=== PATIENT | female | born 1950 | race Two or more races ===

== ENCOUNTER 2016-08-28 18:01 | Emergency (ER) | payer SELFPAY ==
[~2016-08-28] VITALS: Ht 165.1 cm; Wt 45.9 kg
[~2016-08-28 18:01] MED LIST: LEVO750T25 PO; LOSA50TA6 PO; ONDA8TAB9 PO
[2016-08-28 18:14] VITALS: Ht 165.1 cm; Wt 45.9 kg
== END 2016-08-28 18:41 | disposition left against medical advice (07) ==
LOC: E/R 18:01
DX: Z53.21 Procedure and treatment not carried out due to patient leaving prior to being seen by health care provider (principal)

== ENCOUNTER 2016-09-18 16:34 | Inpatient (IN) | payer BC, MEDICARE ==
[~2016-09-18] VITALS: Ht 157.5 cm; Wt 44.6 kg
--- NOTE | 2016-09-18 21:48 | ERA ---
ER Documentation Chief Complaint Date/Time DATE: 09/18/16 TIME: 21:48 Chief Complaint GENERALIZED ABD PAIN X 2 WEEKS STOMACH CA HPI The patient is a 66-year-old female, presenting to the ER because of acute on chronic intermittent abdominal pain for more than 3 weeks, 03/07, relief with vomiting and bowel movement. She had an abdominal and pelvic CAT scan on August 29, 2016 at [facility] that show ileus. 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 She had history of gastric cancer, treated with chemotherapy and gastric resection and [facility] on August 2015. She is follow-up with her oncologist concerning suspected recurrent gastric carcinoma. The abdominal pain is diffuse, associated with intermittent vomiting and constipation.. She does not smoke or drink Past medical history: History of gastric cancer, dumping syndrome, IBS Past surgical history: Right knee, appendectomy, hysterectomy ROS All systems reviewed and are negative except as per history of present illness. Medications Home Meds Reported Medications Cholecalciferol* (Vitamin D3*) Unknown Strength Tablet, UNIT PO DAILY, TAB 09/18/16 Cyanocobalamin* (Vitamin B-12*) 1,000 Mcg Tablet.sa, 1000 MCG PO DAILY, TAB 09/18/16 Multivitamins* (Theragran*) 1 Tab Tab, 1 TAB PO DAILY, TAB 09/18/16 Peppermint Oil (Ibgard) 90 Mg Capdr...er, 90 MG PO DAILY Y for PRN, CAP 09/18/16 Discontinued Reported Medications Cyanocobalamin* (Vitamin B12*) 500 Mcg Tab, 1000 MCG PO DAILY, TAB 09/18/16 Ondansetron Hcl* (Zofran*) 8 Mg Tablet, 8 MG PO BID Y for NAUSEA AND OR VOMITING , TAB 02/03/16 Losartan Potassium* (Losartan Potassium*) 50 Mg Tablet, 50 MG PO BID, TAB 02/03/16 Discontinued Scripts Levofloxacin* (Levaquin*) 750 Mg Tablet, 750 MG PO DAILY for 7 Days, TAB Prov:HEBER DE LA TORRE MD 02/03/16 Allergies Allergies: Coded Allergies: No Known Allergy (Unverified , 09/18/16) PMhx/Soc History of Surgery: Yes (Rt knee meniscus surgery, STOMACH CXR) Anesthesia Reaction: No Hx Neurological Disorder: No Hx Respiratory Disorders: No Hx Cardiac Disorders: Yes (HTN) Hx Psychiatric Problems: No Hx Miscellaneous Medical Probl: Yes (STOMACH CANCER WITH CHEMO) Hx Alcohol Use: No Hx Substance Use: No Hx Tobacco Use: No Physical Exam Vitals Vital Signs Date Time Temp Pulse Resp B/P Pulse Ox O2 Delivery O2 Flow Rate FiO2 09/19/16 02:00 72 13 121/65 100 Room Air 09/18/16 22:16 97.6 86 12 173/80 100 Room Air 09/18/16 16:44 97.9 85 16 137/60 99 Physical Exam Const: No acute distress. Head: Atraumatic. Eyes: Normal Conjunctiva. ENT: Normal External Ears, Nose and Mouth. Neck: Full range of motion. No meningismus. Resp: Clear to auscultation bilaterally. Cardio: Regular rate and rhythm, no murmurs. Abd: Soft, non distended, normal bowel sounds, diffuse abdominal tenderness, no rigidity, rebound, CVA tenderness Skin: No petechiae or rashes. Back: No midline or flank tenderness. Ext: No cyanosis, or edema. Neur: Awake and alert. No focal deficit Psych: Normal Mood and Affect. Result Diagram: 09/18/16221409/18/162214 Results 24 hrs Laboratory Tests Test 09/18/16 22:15 09/18/16 22:35 White Blood Count 5.310^3/ul Red Blood Count 3.9210^6/ul Hemoglobin 11.4g/dl Hematocrit 35.0% Mean Corpuscular Volume 89.3fl Mean Corpuscular Hemoglobin 29.1pg Mean Corpuscular Hemoglobin Concent 32.6g/dl Red Cell Distribution Width 14.3% Platelet Count 32282^3/UL Mean Platelet Volume 9.5fl Neutrophils % 60.4% Lymphocytes % 26.4% Monocytes % 11.4% Eosinophils % 0.6% Basophils % 0.6% Nucleated Red Blood Cells % 0.0/100WBC Neutrophils # 3.210^3/ul Lymphocytes # 1.410^3/ul Monocytes # 0.610^3/ul Eosinophils # 0.010^3/ul Basophils # 0.010^3/ul Nucleated Red Blood Cells # 0.010^3/ul Sodium Level 140mmol/L Potassium Level 4.6mmol/L Chloride Level 97mmol/L Carbon Dioxide Level 31mmol/L Anion Gap 17 Blood Urea Nitrogen 13mg/dl Creatinine 0.61mg/dl Glucose Level 95mg/dl Calcium Level 8.8mg/dl Total Bilirubin 0.4mg/dl Direct Bilirubin 0.00mg/dl Indirect Bilirubin 0.4mg/dl Aspartate Amino Transf (AST/SGOT) 45IU/L Alanine Aminotransferase (ALT/SGPT) 28IU/L Alkaline Phosphatase 130IU/L Total Protein 7.6g/dl Albumin 4.0g/dl Globulin 3.60g/dl Albumin/Globulin Ratio 1.11 Lipase < 10U/L Bedside Urine pH (LAB) 6.0 Bedside Urine Protein (LAB) Negative Bedside Urine Glucose (UA) Negative Bedside Urine Ketones (LAB) Trace Bedside Urine Blood Negative Bedside Urine Nitrite (LAB) Negative Bedside Urine Leukocyte Esterase (L Trace Current Medications Medications (Trade) Dose Ordered Sig/Barbara Route PRN Reason Start Time Stop Time Status Last Admin Dose Admin Morphine Sulfate (morphine) 2 mg ONCE ONCE IV 09/18/16 22:00 09/18/16 22:01 DC 09/18/16 22:29 Ondansetron HCl (Zofran Inj) 4 mg ONCE STAT IV 09/18/16 21:59 09/18/16 22:01 DC 09/18/16 22:29 IV Flush 10 ml 10 ml STK-MED ONCE .ROUTE 09/18/16 23:46 09/18/16 23:47 DC 09/18/16 23:56 Sodium Chloride (NS) 100 ml @ ud STK-MED ONCE .ROUTE 09/18/16 23:46 09/18/16 23:47 DC 09/18/16 23:56 Iohexol 150 ml 150 ml STK-MED ONCE .ROUTE 09/18/16 23:46 09/18/16 23:47 DC 09/18/16 23:56 Piperacillin Sod/ Tazobactam Sod (Zosyn 3.375gm/ 100 ml (Pmx)) 100 ml @ 200 mls/hr ONCE ONCE IVPB 09/19/16 00:30 09/19/16 00:59 DC 09/19/16 00:52 Procedures/[place] [id number] Radiology Main Line: [phone] DIAGNOSTIC IMAGING REPORT Patient: ABDOUL RAMIREZ : 1950 Age: 66 Sex: F MR #: [id number] DOS: 09/18/16 0000 Ordering MD: MANE FRAGA MD Location: E/R Room/Bed: PROCEDURE: XR Chest. CLINICAL INDICATION: Chest pain. TECHNIQUE: Portable AP upright view of the chest was obtained. COMPARISON: 02/03/2016 FINDINGS: The cardiomediastinal silhouette is within normal limits. The lungs are clear. There is no evidence for pleural effusion, pneumothorax or pulmonary vascular congestion. The osseous structures are intact with no evidence for acute abnormality. Right-sided approach venous X device is again noted the tip at the cavoatrial junction. Calcification of the aortic arch is again noted. RPTAT:HJJR IMPRESSION: No evidence for acute intrathoracic pathology or interval change from 2015. Physician Sona Date Time Electronically viewed and signed by Landen Velazquez Physician on 09/18/2016 22:59 JR/ CC: MANE FRAGA MD [place] [id number] Radiology Main Line: [phone] DIAGNOSTIC IMAGING REPORT Patient: ABDOUL RAMIREZ : 1950 Age: 66 Sex: F MR #: [id number] DOS: 09/18/16 2159 Ordering MD: MANE FRAGA MD Location: E/R Room/Bed: PROCEDURE: CT Abdomen and Pelvis with IV contrast. CLINICAL INDICATION: Pain. History of gastric carcinoma. Status post gastrectomy and hysterectomy. TECHNIQUE: CT scan of the abdomen and pelvis was performed on a multidetector CT scanner. The patient was scanned following the uncomplicated administration of 80 cc Omnipaque 300 intravenous contrast material. Coronal and sagittal reformatted images were obtained from the axial source images. Images were reviewed on a high-resolution PACS workstation. Exam CTDlvol = 4 mGy and DLP = 207 mGy-cm. One of the following 3 dose reduction techniques were used: Automated exposure control; adjustment of the mA and/or kV according to patient size; or use of iterative reconstruction technique. COMPARISON: None. FINDINGS: There is moderate free fluid throughout the abdomen and pelvis. There are surgical clips with an apparent gastric remnant suggesting a partial gastrectomy versus reconstructed gastric pouch with thickened malhotra. There is diffuse small bowel dilatation with air-fluid levels throughout the abdomen and pelvis appear there is a transition in the lower pelvis to the collapse distal small bowel with a possible 2.6 cm diameter soft tissue mass versus thickened malhotra. The colon is collapsed. Appendix is not identified. There is no evidence for diverticulitis. There is a small fluid-containing periiIncisional hernia in the right midabdomen above the umbilicus. The liver is overall normal in size. No intrahepatic lesions are identified. The gallbladder is well distended. No gallstones or definite biliary obstruction is present.. Pancreas is unremarkable. Spleen is normal in size and appearance. There are no adrenal masses. The aorta is normal caliber. There are atherosclerotic vascular calcifications.. There is a 6 mm simple cyst in the lower pole right kidney. Kidneys are otherwise normal in appearance without hydronephrosis, mass or calculus. There is normal symmetric homogeneous renal parenchymal enhancement. There is no perinephric collection. Ureters are of normal caliber in appearance. Urinary bladder is contracted. Uterus is not identified compatible with a hysterectomy. Ovaries are not distinctly visualized. Limited evaluation lung bases is unremarkable. There are degenerative changes of the lumbar spine. IMPRESSION: 1. Status post gastrectomy/partial gastrectomy with wall thickening of the gastric remnant or reconstructed pouch. 2. Distal small bowel obstruction with transition in the lower pelvis at the level of either a focal mass or focally thickened distal small bowel wall. 3. Free fluid throughout the abdomen and pelvis. 4. Well distended gallbladder without evidence for biliary obstruction. 5. Simple cyst lower pole right kidney. No obstructive uropathy. Contracted urinary bladder. 6. Uterus not identified compatible with a hysterectomy. Ovaries not distinctly visualized. 7. Degenerative changes of the lumbar spine. 8. Atherosclerotic vascular calcifications. RPTAT: HMVK .Mane Rizo MD, MD Date Time Electronically viewed and signed by .Mane Rizo MD, MD on 09/19/2016 00:14 .K/ CC: MANE FRAGA MD [place] [id number] Radiology Main Line: [phone] DIAGNOSTIC IMAGING REPORT Patient: ABDOUL RAMIREZ : 1950 Age: 66 Sex: F MR #: [id number] DOS: 09/19/16 0000 Ordering MD: MANE FRAGA MD Location: E/R Room/Bed: PROCEDURE: Chest. CLINICAL INDICATION: Chest pain. TECHNIQUE: Single frontal view of the chest was obtained. COMPARISON: 09/18/2016. FINDINGS: There is a right-sided Port-A-Cath extending to the SVC. There is a nasogastric tube extending to the stomach. The cardiac silhouette is within normal limits. The aortic arch is calcified. There is no focal consolidation, vascular congestion or pleural effusion. There is no pneumothorax. IMPRESSION: No evidence for active cardiopulmonary disease. Aortic atherosclerosis. Nasogastric tube in place. .Roberto Galindo MD, MD Date Time Electronically viewed and signed by .Roberto Galindo MD, MD on 09/19/2016 01:42 .T/ CC: MANE FRAGA MD MEDICAL MAKING DECISION: The patient is a 66-year-old female, presenting with acute small bowel obstruction. she was treated with morphine 2 mg IV for pain, Zofran 4 mg IV for nausea, Zosyn IV and nasogastric tube for acute small bowel obstruction. The differential diagnoses considered include but are not limited to cholelithiasis, cholecystitis, cystitis, pancreatitis, hepatitis, gastritis, peptic ulcer disease, gastric ulcer, appendicitis, diverticulitis, cholangitis, choledocholithiasis. Consultation: I discussed the patient with the on-call general surgeon Dr. Erazo, who was made aware of the lab, the treatment, the patient condition. He accepted the consult at 12:35 AM Departure Diagnosis: Primary Impression: Small bowel obstruction Additional Impression: Anemia Condition: Stable Comments I discussed the findings with the patient. I discussed the patient with Dr Mazariegos who was information systems security developer for her physician Dr. Jose Enrique Saleem who was made aware of the lab, the treatment, the patient condition. The patient is admitted to MANE RICKS MD Sep 18, 2016 21:48
[2016-09-18] MEDS ORDERED: ONDANSETRON 4 MG INJ IV STA (21:59)
[2016-09-18] MEDS ORDERED: morphine 2 MG INJ IV ONE (22:00)
[2016-09-18] MEDS ORDERED: PEPP90CA PO (22:07)
[2016-09-18] MEDS ORDERED: MULTI PO (22:08)
[2016-09-18] MEDS ORDERED: CYAN500T46 PO (22:12)
[2016-09-18] MEDS ORDERED: CYAN100080 PO (22:13)
[2016-09-18] MEDS ORDERED: CHOL100062 PO (22:13)
[2016-09-18 22:16] VITALS: TEMP 97.6
[2016-09-18 22:36] LABS: URINE BLOOD (Dip) POC Negative (NEGATIVE)
[2016-09-18 22:47] LABS: ADD SCAN DIFF NO
[2016-09-18 22:52] LABS: BASOPHILS % 0.6 % (0.0-2.0); EOSINOPHILS % 0.6 % (0.0-7.0); HEMOGLOBIN 11.4 g/dl (12.0-16.0); LYMPHOCYTES # 1.4 10^3/ul (0.8-2.9); LYMPHOCYTES % 26.4 % (15.0-51.0); MEAN CORPUSCULAR HEMOGLOBIN 29.1 pg (29.0-33.0); MEAN CORPUSCULAR HGB CONC 32.6 g/dl (32.0-37.0); MEAN CORPUSCULAR VOLUME 89.3 fl (82.0-101.0); MEAN PLATELET VOLUME 9.5 fl (7.4-10.4); MONOCYTE # 0.6 10^3/ul (0.3-0.9); MONOCYTES % 11.4 % (0.0-11.0); NEUTROPHIL # 3.2 10^3/ul (1.6-7.5); NEUTROPHILS % 60.4 % (39.0-77.0); PLATELET COUNT 278 10^3/UL (140-415); RED BLOOD COUNT 3.92 10^6/ul (4.20-5.40); RED CELL DISTRIBUTION WIDTH 14.3 % (11.5-14.5); WHITE BLOOD COUNT 5.3 10^3/ul (4.8-10.8)
--- NOTE | 2016-09-18 22:59 | RADRPT ---
PROCEDURE: XR Chest. CLINICAL INDICATION: Chest pain. TECHNIQUE: Portable AP upright view of the chest was obtained. COMPARISON: 02/03/2016 FINDINGS: The cardiomediastinal silhouette is within normal limits. The lungs are clear. There is no evidenc e for pleural effusion, pneumothorax or pulmonary vascular congestion. The osseous structures are i ntact with no evidence for acute abnormality. Right-sided approach venous X device is again noted th e tip at the cavoatrial junction. Calcification of the aortic arch is again noted. RPTAT:HJJR IMPRESSION: No evidence for acute intrathoracic pathology or interval change from 02/03/2016. Physician Sona Date Time Electronically viewed and signed by Landen Velazquez Physician on 09/18/2016 22:59 /
[2016-09-18 23:11] LABS: CHLORIDE 97 mmol/L (97-110); POTASSIUM 4.6 mmol/L (3.5-5.1); SODIUM 140 mmol/L (135-144)
[2016-09-18 23:13] LABS: ANION GAP 17 (8-16); ASPARTATE AMINO TRANSFERASE 45 IU/L (15-46); BILIRUBIN,INDIRECT 0.4 mg/dl (0-1.1); BILIRUBIN,TOTAL 0.4 mg/dl (0.2-1.3); CARBON DIOXIDE 31 mmol/L (21-31); CREATININE 0.61 mg/dl (0.44-1.00)
[2016-09-18 23:14] LABS: ALANINE AMINOTRANSFERASE 28 IU/L (13-69); ALBUMIN/GLOBULIN RATIO 1.11; ALKALINE PHOSPHATASE 130 IU/L (42-121); BLOOD UREA NITROGEN 13 mg/dl (7-20); CALCIUM 8.8 mg/dl (8.4-10.2); GLUCOSE 95 mg/dl (70-220); TOTAL PROTEIN 7.6 g/dl (6.1-8.1)
[2016-09-18] MEDS ORDERED: IOHEXOL 300MG/ML 150 ML BTL ONE (23:46)
[2016-09-18] MEDS ORDERED: SOD CHLORIDE 0.9% 100 ML ONE (23:46)
--- NOTE | 2016-09-19 00:14 | RADRPT ---
PROCEDURE: CT Abdomen and Pelvis with IV contrast. CLINICAL INDICATION: Pain. History of gastric carcinoma. Status post gastrectomy and hysterectom y. TECHNIQUE: CT scan of the abdomen and pelvis was performed on a multidetector CT scanner. The pat ient was scanned following the uncomplicated administration of 80 cc Omnipaque 300 intravenous contr ast material. Coronal and sagittal reformatted images were obtained from the axial source images. I mages were reviewed on a high-resolution PACS workstation. Exam CTDlvol = 4 mGy and DLP = 207 mGy-c m. One of the following 3 dose reduction techniques were used: Automated exposure control; adjustme nt of the mA and/or kV according to patient size; or use of iterative reconstruction technique. COMPARISON: None. FINDINGS: There is moderate free fluid throughout the abdomen and pelvis. There are surgical clips with an ap parent gastric remnant suggesting a partial gastrectomy versus reconstructed gastric pouch with thic kened malhotra. There is diffuse small bowel dilatation with air-fluid levels throughout the abdomen a nd pelvis appear there is a transition in the lower pelvis to the collapse distal small bowel with a possible 2.6 cm diameter soft tissue mass versus thickened malhotra. The colon is collapsed. Appendix is not identified. There is no evidence for diverticulitis. There is a small fluid-containing quan iIncisional hernia in the right midabdomen above the umbilicus. The liver is overall normal in size. No intrahepatic lesions are identified. The gallbladder is wel l distended. No gallstones or definite biliary obstruction is present.. Pancreas is unremarkable. Spleen is normal in size and appearance. There are no adrenal masses. The aorta is normal caliber . There are atherosclerotic vascular calcifications.. There is a 6 mm simple cyst in the lower pole right kidney. Kidneys are otherwise normal in appeara nce without hydronephrosis, mass or calculus. There is normal symmetric homogeneous renal parenchym al enhancement. There is no perinephric collection. Ureters are of normal caliber in appearance. Urinary bladder is contracted. Uterus is not identified compatible with a hysterectomy. Ovaries are not distinctly visualized. Limited evaluation lung bases is unremarkable. There are degenerative changes of the lumbar spine. IMPRESSION: 1. Status post gastrectomy/partial gastrectomy with wall thickening of the gastric remnant or recon structed pouch. 2. Distal small bowel obstruction with transition in the lower pelvis at the level of either a foca l mass or focally thickened distal small bowel wall. 3. Free fluid throughout the abdomen and pelvis. 4. Well distended gallbladder without evidence for biliary obstruction. 5. Simple cyst lower pole right kidney. No obstructive uropathy. Contracted urinary bladder. 6. Uterus not identified compatible with a hysterectomy. Ovaries not distinctly visualized. 7. Degenerative changes of the lumbar spine. 8. Atherosclerotic vascular calcifications. RPTAT: HMVK .Mane Rizo MD, Date Time Electronically viewed and signed by .Mane Rizo MD, MD on 09/19/2016 00:14 .K/
[2016-09-19] MEDS ORDERED: PIPER-TAZO 3.375 GM IV (PMX) 100 ML IVPB ONE (00:30)
--- NOTE | 2016-09-19 01:42 | RADRPT ---
PROCEDURE: Chest. CLINICAL INDICATION: Chest pain. TECHNIQUE: Single frontal view of the chest was obtained. COMPARISON: 09/18/2016. FINDINGS: There is a right-sided Port-A-Cath extending to the SVC. There is a nasogastric tube extending to t he stomach. The cardiac silhouette is within normal limits. The aortic arch is calcified. There i s no focal consolidation, vascular congestion or pleural effusion. There is no pneumothorax. IMPRESSION: No evidence for active cardiopulmonary disease. Aortic atherosclerosis. Nasogastric tube in place. .Roberto Galindo MD, MD Date Time Electronically viewed and signed by .Roberto Galindo MD, on 09/19/2016 01:42 .T/
[2016-09-19 03:12] VITALS: Ht 157.5 cm; Wt 44.6 kg
[2016-09-19 03:20] VITALS: BP 163/73; RESP 16
[2016-09-19] MEDS ORDERED: morphine 2 MG INJ IV PRN (04:00)
[2016-09-19] MEDS ORDERED: ONDANSETRON 4 MG INJ IV PRN (04:00)
[2016-09-19] MEDS: DEXTROSE 5%-0.9% NACL 1,000 ML IV SCH ×2 (04:34→14:14)
[2016-09-19 06:50] LABS: ADD UMIC NO; URINE BILIRUBIN (Dip) NEGATIVE (NEGATIVE); URINE BLOOD (Dip) NEGATIVE (NEGATIVE); URINE COLOR YELLOW (YELLOW); URINE GLUCOSE (Dip) NEGATIVE (NEGATIVE); URINE KETONES (Dip) 15 (NEGATIVE); URINE LEUKOCYTE ESTERASE (Dip) NEGATIVE (NEGATIVE); URINE NITRITE (Dip) NEGATIVE (NEGATIVE); URINE TOTAL PROTEIN (Dip) NEGATIVE (NEGATIVE); URINE UROBILINOGEN (Dip) 0.2 E.U./dL (0.1-1.0)
[2016-09-19 07:42] VITALS: BP 114/57; RESP 18
[2016-09-19 07:43] LABS: ADD SCAN DIFF NO
[2016-09-19 07:49] LABS: BASOPHILS % 0.4 % (0.0-2.0); EOSINOPHILS % 0.4 % (0.0-7.0); HEMATOCRIT 30.3 % (37.0-47.0); HEMOGLOBIN 9.8 g/dl (12.0-16.0); LYMPHOCYTES # 1.3 10^3/ul (0.8-2.9); LYMPHOCYTES % 28.7 % (15.0-51.0); MEAN CORPUSCULAR HEMOGLOBIN 28.9 pg (29.0-33.0); MEAN CORPUSCULAR HGB CONC 32.3 g/dl (32.0-37.0); MEAN CORPUSCULAR VOLUME 89.4 fl (82.0-101.0); MEAN PLATELET VOLUME 9.9 fl (7.4-10.4); MONOCYTE # 0.6 10^3/ul (0.3-0.9); MONOCYTES % 13.7 % (0.0-11.0); NEUTROPHIL # 2.6 10^3/ul (1.6-7.5); NEUTROPHILS % 56.6 % (39.0-77.0); PLATELET COUNT 261 10^3/UL (140-415); RED BLOOD COUNT 3.39 10^6/ul (4.20-5.40); RED CELL DISTRIBUTION WIDTH 14.2 % (11.5-14.5); WHITE BLOOD COUNT 4.5 10^3/ul (4.8-10.8)
[2016-09-19 07:55] LABS: ALBUMIN 3.1 g/dl (3.3-4.9)
[2016-09-19 07:56] LABS: POTASSIUM 4.3 mmol/L (3.5-5.1)
[2016-09-19 07:58] LABS: BILIRUBIN,INDIRECT 0.3 mg/dl (0-1.1); BILIRUBIN,TOTAL 0.3 mg/dl (0.2-1.3); CREATININE 0.62 mg/dl (0.44-1.00); TOTAL PROTEIN 6.2 g/dl (6.1-8.1)
[2016-09-19 07:59] LABS: CALCIUM 8.4 mg/dl (8.4-10.2)
[2016-09-19] MEDS: LOSARTAN 50 MG TAB PO SCH (09:00)
[2016-09-19] MEDS: ENOXAPARIN 30 MG/0.3 ML SYG SC SCH (09:18)
--- NOTE | 2016-09-19 11:56 | HP ---
DATE OF ADMISSION: 09/19/2016 ADMISSION DIAGNOSIS: Abdominal pain, ileus, nausea, vomiting, history of gastric cancer. HISTORY OF PRESENT ILLNESS: This is a 66-year-old female with a known history of gastric carcinoma, status post resection in 2016, post-chemo and did well. Approximately 1 month ago she started comp laining of increased gas, saw her primary physician, and was started on charcoal. Then she started b ecoming more distended and was seen in [place] ER on 08/29/2016 and was told via her CAT scan paul t she had an ileus and was then sent home, but was not given any type of medication. The patient re ports now in the past week that she has become more distended, abdominal pain, having nausea and vom iting, and comes to the emergency room. PAST MEDICAL HISTORY: Includes, as above, peptic ulcer disease, gastric cancer, post-chemo, dumping syndrome, IBS. PAST SURGICAL HISTORY: Appendectomy and hysterectomy. ALLERGIES: NO KNOWN DRUG ALLERGIES. SOCIAL HISTORY: Alcohol, denies. Tobacco, denies. FAMILY HISTORY: Noncontributory. PHYSICAL EXAMINATION: VITAL SIGNS: Temperature 98.6, blood pressure 114/57, pulse 67, respirations 18, pulse ox 97% on ro om air. NG tube is in place, with bile-like fluid coming out. GENERAL: The patient is in no acute distress. HEENT: Normocephalic, atraumatic. EYES: Pupils are equal, round, react to light and accommodation. HEART: Regular rate and rhythm, with a systolic ejection murmur, diffuse, 1/6. LUNGS: Clear to auscultation bilaterally. ABDOMEN: No bowel sounds. Soft. No palpable masses. EXTREMITIES: Lower extremities no pitting edema. LABORATORY TESTS: Demonstrate a WBC of 4.5, a hemoglobin that dropped from the emergency room from 11.4, with hydration to 9.8. Platelets 261. Creatinine is at 0.62. Urine is only positive for ket ones. ASSESSMENT AND PLAN: 1. Abdominal pain, ileus. Rule out obstruction. The patient had a CAT scan in the emergency room, both in [place] and here, that did not show any obstructing mass. The surgeon was called from e ER and had the patient placed on antibiotics. The patient is to be evaluated this weekend by the surgeon. Will keep the patient on NG tube at intermittent suction up until the time the nausea and vomiting have resolved. Currently the patient is still having abdominal pain. 2. Anemia. The patient's hemoglobin has dropped. Will follow. She has a history of peptic ulcer disease, but that may have been resolved after the gastrectomy. Will get guaiac stool. 3. Hypertension. Will continue regular medications and give p.r.n. clonidine. 4. Heart murmur. Patient reports not having a heart murmur, but currently she does. She has had a complete workup of her heart 1 year previous with a stress test and echo. She reports this was norm al. She had these procedures done due to having some type of chest pain, which they determined it w as due to reflux. Dictated By: NÉSTOR ABURTO/[place] Conf#: [id number] DID#: [id number]
[2016-09-19] MEDS: METOCLOPRAMIDE 10 MG INJ IV SCH ×2 (14:14→22:13)
--- NOTE | 2016-09-19 16:57 | CONS ---
[facility] INITIAL INPATIENT CONSULTATION NOTE DATE OF CONSULTATION: 09/19/2016 PLACE OF SERVICE: [facility], 6th floor ASSESSMENT AND PLAN: A very pleasant but unfortunate 66-year-old lady with recent discovery of stage III malignancy of the stomach, status post subtotal gastrectomy at [facility] followed by systemic chemotherapy as well as radiation (details as to therapy missing), who presented with signs and symptoms consistent with partial small-bowel obstruction. There may be an element of ileus, but there are certainly concerning features of anatomic obstruction. The patient seems to be clinically stable and the appropriate nonsurgical management has been initiated. 90 to 95% of the time the clinical symptoms of partial small-bowel obstruction resolve with adequate supportive therapy as well as bowel rest. It would be especially important in this nice lady for us to try and avoid surgery if at all possible and to get her back on her oncology scheduled of treatment and surveillance. I explained all of this to the patient (no family present during any of my discussions with the patient ) and answered all her questions to the best of my ability. I believe that the patient understands and agrees with the plan. With above assessment, I recommend the followin. Continue NG decompression. 2. Intravenous fluids. 3. Keep in-house. 4. Treat symptoms. 5. Labs in a.m. 6. I will continue to follow the patient along with you. Thank you again for allowing us to participate in the care of this very pleasant lady and I am certain her wonderful family. If there are any questions , please feel free to call me at [phone]. TOTAL VISIT TIME: 45 minutes of which more than half was spent in [id number] discussion with the patient as well as coordination of care between multiple physicians and providers. UPDATED CLINICAL SUMMARY: The patient is a very pleasant but unfortunate 66- year-old lady with history of stage III stomach malignancy, status post resection followed by systemic chemotherapy as well as radiation at [facility] , who presented to [facility] with bowel obstruction symptoms and CT findings on 09/19/2016 showing evidence for distal small-bowel obstruction with transition in the lower pelvis at the level of either a focal mass or a focally thickened distal small bowel wall. There was evidence of gastrectomy and partial gastrectomy with wall thickening of the gastric remnant or reconstructed pouch. Free fluid was seen throughout the abdomen and pelvis and a well-distended gallbladder without evidence of biliary dilatation was seen. Uterus was absent consistent with the patient's prior hysterectomy and she also had appendectomy in the past. COMORBIDITIES: 1. Gastric cancer stage III, reported to be aggressive, status post resection with subtotal gastrectomy and reconstruction (details missing) at [facility] approximately a year ago followed by systemic chemotherapy as well as radiation therapy, with patient reporting most recent CT scan showing a mass near the area of the resection and plan for followup CT in September prior to being admitted to [facility] with the above symptoms. 2. Previous hysterectomy. 3. Previous appendectomy. 4. Degenerative changes of lumbar spine. 5. Atherosclerotic vascular calcifications. 6. Simple cyst of lower pole of right kidney. 7. Peptic ulcer disease. 8. Reported history of inflammatory bowel syndrome. 9. History of dumping syndrome after gastrectomy. DATE OF ADMISSION: 09/19/2016 HISTORY OF PRESENT ILLNESS: The patient is a very pleasant 66-year-old lady with the above-mentioned history, who were kindly asked to consult regarding assistance with her bowel obstruction picture. The patient reported having abdominal pain, mainly gas pain in the lower pelvis. She reported some nausea, but no significant vomiting and reports significant improvement in her symptoms since being admitted. Note that an NG tube was also placed and it was draining bilious to brownish type fluid, approximately 200 to 300 mL. ALLERGIES: NO KNOWN DRUG ALLERGIES. MEDICATIONS: 1. Vitamin D3. 2. Vitamin B12. 3. Theragran 4. IBgard. SOCIAL HISTORY: The patient does not report any smoking, drinking, or intravenous drug use. FAMILY HISTORY: No major medical, surgical or oncologic problems reported in the family. REVIEW OF SYSTEMS: Other than the above-mentioned, there are no other pertinent positives or pertinent negatives in a complete 14-point review of systems. PHYSICAL EXAMINATION: GENERAL: The patient appears to be a very pleasant [place] lady of non- descent, appearing stated age, lying in bed comfortably and in no acute distress. BMI is 18 VITAL SIGNS: Temperature 98.6, blood pressure 114/57, pulse 67, respiratory rate 18, pulse oximetry 97% on room air. She has an NG tube with bilious/ brownish output approximately 200 to 300 mL in the canister. HEENT: Normocephalic and atraumatic. Extraocular muscles and hearing are grossly intact bilaterally and symmetrically. Sclerae are nonicteric. Oral cavity is clear; oral mucosa appeared to be pink and moist. Dentition: fair to poor. NECK: Supple. There is no lymphadenopathy or JVD. There is no submental, submandibular or supraclavicular lymphadenopathy. CHEST: Rises symmetrically with each breath; patient is breathing comfortably. There are no audible wheezes, rales or rhonchi on the gross exam. HEART: Pulse is regular and palpable on the left wrist. Capillary refill was normal. Carotid pulses are palpable bilaterally and symmetrically in the neck. EXTREMITIES: Lower extremities contain no pitting edema around the ankles bilaterally and symmetrically. ABDOMEN: Shows a well-healed midline scar from the xiphoid down to the suprapubic area. There is no evidence of erythema, edema, discharge or hernia. There is no evidence of organomegaly, caput medusae, engorged subcutaneous veins or ascites. She has slight amount of distention and slight amount of tenderness to palpation in the lower pelvic region, but no guarding or peritoneal signs. SKIN: Appears to be pink and feels warm to touch. NEUROLOGIC: Awake, alert, and follows commands appropriately. LABORATORY DATA: White blood cell count 4.5, hemoglobin 9.8, platelets 261. Electrolytes were all normal. CO2 of 31, creatinine 0.62. Total bilirubin 0.3 , AST 37, ALT 22, alkaline phosphatase 94, albumin 3.1 after hydration. Lipase less than 10. Urinalysis showed no leukocyte esterase or nitrite positivity. IMAGING: CT images were reviewed above. Note that I personally reviewed all the available pertinent images and I agree in general with their overall reported findings. Dictated By: JARRELL GORMAN/[place] Conf#: [id number] DID#: [id number]
[2016-09-19 19:00] VITALS: BP 130/58; RESP 16
[2016-09-20] MEDS: DEXTROSE 5%-0.9% NACL 1,000 ML IV SCH ×5 (00:55→23:05)
[2016-09-20] MEDS: METOCLOPRAMIDE 10 MG INJ IV SCH ×3 (05:25→22:00)
[2016-09-20 06:02] LABS: ADD SCAN DIFF NO
[2016-09-20 06:10] LABS: BASOPHILS % 0.2 % (0.0-2.0); EOSINOPHILS % 0.4 % (0.0-7.0); HEMATOCRIT 28.1 % (37.0-47.0); LYMPHOCYTES # 1.2 10^3/ul (0.8-2.9); MEAN CORPUSCULAR HEMOGLOBIN 28.8 pg (29.0-33.0); MEAN CORPUSCULAR VOLUME 89.8 fl (82.0-101.0); MEAN PLATELET VOLUME 9.8 fl (7.4-10.4); MONOCYTE # 0.6 10^3/ul (0.3-0.9); MONOCYTES % 12.8 % (0.0-11.0); NEUTROPHIL # 2.9 10^3/ul (1.6-7.5); NEUTROPHILS % 61.2 % (39.0-77.0); PLATELET COUNT 233 10^3/UL (140-415); RED BLOOD COUNT 3.13 10^6/ul (4.20-5.40); RED CELL DISTRIBUTION WIDTH 14.3 % (11.5-14.5); WHITE BLOOD COUNT 4.8 10^3/ul (4.8-10.8)
[2016-09-20 06:18] LABS: IRON 28 ug/dl (35-150)
[2016-09-20 06:27] LABS: TOTAL IRON BINDING CAPACITY 237 ug/dl (241-421)
[2016-09-20 07:26] VITALS: BP 109/58; RESP 18
[2016-09-20 07:30] LABS: FOLATE > 20.0 ng/ml (2.8-20.0)
[2016-09-20] MEDS: LOSARTAN 50 MG TAB PO SCH (09:00)
[2016-09-20] MEDS: ENOXAPARIN 30 MG/0.3 ML SYG SC SCH (09:47)
[2016-09-20 19:28] VITALS: BP 146/67; RESP 16
--- NOTE | 2016-09-20 22:23 | PN ---
Date/Time of Note Date/Time of Note DATE: 09/20/16 TIME: 10:21 Assessment/Plan Lines/Catheters IV C[facility] Type [facility]from [facility] [place] Assessment/Plan Assessment/Plan [facility] Progress Note Date of Service: 09/20/16 Today's Impression & Plan: Overall stable. SBO still ongoing without showing sig bowel activity. No indication for acute surgical intervention. With above assessment, I've recommended the following for today: 1. Cont current cares 2. Cont NG to LIS 3. Cont NPO status (ice chips for comfort, but will need to record amounts) 4. Keep inhouse Thank you again for your great care of this very pleasant patient and wonderful family. If there are any questions, please feel free to call me at [phone]. TOTAL VISIT TIME: 20 minutes of which more than half was spent in [id number] discussion with the patient, possibly including family, as well as coordination of care between multiple physicians and providers. Disclaimer: Inadvertent spelling or grammatical errors are likely due to EHR/ dictation software use and do not reflect on the overall quality of patient care. Updated Clinical Summary: The patient is a very pleasant but unfortunate 66-year-old lady with history of stage III stomach malignancy, status post resection followed by systemic chemotherapy as well as radiation at [facility], who presented to [facility] with bowel obstruction symptoms and CT findings on 2016 showing evidence for distal small-bowel obstruction with transition in the lower pelvis at the level of either a focal mass or a focally thickened distal small bowel wall. There was evidence of gastrectomy and partial gastrectomy with wall thickening of the gastric remnant or reconstructed pouch. Free fluid was seen throughout the abdomen and pelvis and a well-distended gallbladder without evidence of biliary dilatation was seen. Uterus was absent consistent with the patient's prior hysterectomy and she also had appendectomy in the past. COMORBIDITIES: 1. Gastric cancer stage III, reported to be aggressive, status post resection with subtotal gastrectomy and reconstruction (details missing) at [facility] approximately a year ago followed by systemic chemotherapy as well as radiation therapy, with patient reporting most recent CT scan showing a mass near the area of the resection and plan for followup CT in September prior to being admitted to [facility] with the above symptoms. 2. Previous hysterectomy. 3. Previous appendectomy. 4. Degenerative changes of lumbar spine. 5. Atherosclerotic vascular calcifications. 6. Simple cyst of lower pole of right kidney. 7. Peptic ulcer disease. 8. Reported history of inflammatory bowel syndrome. 9. History of dumping syndrome after gastrectomy. Subjective: No major events or complaints; no abd pain and under control with medications; no n/v/d; no sob or cp; - flatus; - BM; + activity Objective: Vitals: See below Exam: GENERAL: On exam, the patient was laying in bed and appeared to be comfortable and in no acute distress. ABDOMEN: Soft, nontender and nondistended. NG bilious. There are no peritoneal signs or guarding. SKIN: Skin appears to be pink and feels warm to touch. NEUROLOGIC: Patient is awake, alert, and follows commands appropriately. Exam/Review of Systems Vital Signs Vitals Vital Signs Date Time Temp Pulse Resp B/P Pulse Ox O2 Delivery O2 Flow Rate FiO2 09/20/16 19:28 98.1 70 16 146/67 98 09/19/16 02:00 Room Air Intake and Output 09/19/16 09/19/16 09/20/16 15:00 23:00 07:00 Intake Total 920 ml 300 ml 1100 ml Output Total 400 ml 200 ml Balance 920 ml -100 ml 900 ml Results Result Diagram: 09/20/16 0515 09/19/16 0645 JARRELL LAMBERT M.D. Sep 20, 2016 22:23
[2016-09-21 05:34] LABS: ADD SCAN DIFF NO
[2016-09-21 05:49] LABS: BASOPHILS % 0.4 % (0.0-2.0); EOSINOPHILS % 0.7 % (0.0-7.0); HEMATOCRIT 27.7 % (37.0-47.0); HEMOGLOBIN 8.9 g/dl (12.0-16.0); LYMPHOCYTES # 1.2 10^3/ul (0.8-2.9); LYMPHOCYTES % 26.4 % (15.0-51.0); MEAN CORPUSCULAR HEMOGLOBIN 28.9 pg (29.0-33.0); MEAN CORPUSCULAR HGB CONC 32.1 g/dl (32.0-37.0); MEAN CORPUSCULAR VOLUME 89.9 fl (82.0-101.0); MEAN PLATELET VOLUME 9.8 fl (7.4-10.4); MONOCYTE # 0.6 10^3/ul (0.3-0.9); MONOCYTES % 12.6 % (0.0-11.0); NEUTROPHIL # 2.7 10^3/ul (1.6-7.5); NEUTROPHILS % 59.7 % (39.0-77.0); PLATELET COUNT 229 10^3/UL (140-415); RED BLOOD COUNT 3.08 10^6/ul (4.20-5.40); RED CELL DISTRIBUTION WIDTH 14.2 % (11.5-14.5); WHITE BLOOD COUNT 4.5 10^3/ul (4.8-10.8)
[2016-09-21] MEDS: DEXTROSE 5%-0.9% NACL 1,000 ML IV SCH ×4 (06:00→20:28)
[2016-09-21] MEDS: METOCLOPRAMIDE 10 MG INJ IV SCH ×3 (06:00→22:00)
[2016-09-21 06:18] LABS: ALBUMIN 2.6 g/dl (3.3-4.9); POTASSIUM 3.6 mmol/L (3.5-5.1)
[2016-09-21 06:20] LABS: CREATININE 0.46 mg/dl (0.44-1.00)
[2016-09-21 06:21] LABS: ALBUMIN/GLOBULIN RATIO 0.96; BILIRUBIN,INDIRECT 0.2 mg/dl (0-1.1); BILIRUBIN,TOTAL 0.2 mg/dl (0.2-1.3); TOTAL PROTEIN 5.3 g/dl (6.1-8.1)
[2016-09-21 07:31] VITALS: BP 139/66; RESP 18
--- NOTE | 2016-09-21 07:58 | PN ---
DATE: 09/20/2016 PROGRESS NOTE The patient reports belly feels better. Has no complaints of nausea. NG tube still on suction. VITAL SIGNS: Temperature is 98.1, blood pressure 109/58, pulse 76, respirations 18, pulse ox is 97 on room air. PHYSICAL EXAMINATION: HEENT: Normocephalic, atraumatic, in no acute distress. NG tube currently in place. CARDIOVASCULAR: Regular rate and rhythm. LUNGS: Clear to auscultation bilaterally. ABDOMEN: Soft, increased bowel sounds. LABORATORY TESTS: Demonstrated an iron of 28, percent saturation at 12, folate normal, B12 normal. ASSESSMENT AND PLAN: 1. Ileus/small bowel obstruction. The patient was seen by the surgeon. Conservative methods are cu rrently in place. The patient has an NG tube on suction, doing well. The patient has had no nausea . She wants to stop the antinausea medications. We will clamp the NG tube today. The patient may have ice chips and if necessary restart the suction if the patient becomes nauseated or distended. 2. Anemia, iron deficient. Stool guaiac still pending. Hemoglobin currently stable at 9.0. Gastr oenterology to evaluate tomorrow. Cannot give p.o. iron at this time due to the bowel obstruction. 3. Blood pressure. The patient is on no medication and is currently stable, has not required any o f her normal blood pressure medications. 4. History of gastric cancer post surgery, chemotherapy and radiation. 5. History also peptic ulcer disease. Dr. Cha is her normal scoring machine operator. who will e valuate her, be consulted tomorrow. Dictated By: NÉSTOR ABURTO/[place] Conf#: [id number] DID#: [id number]
[2016-09-21] MEDS: LOSARTAN 50 MG TAB PO SCH (09:00)
[2016-09-21] MEDS: ENOXAPARIN 30 MG/0.3 ML SYG SC SCH (09:19)
--- NOTE | 2016-09-21 16:43 | PN ---
Date/Time of Note Date/Time of Note DATE: 09/21/16 TIME: 16:21 Assessment/Plan Lines/Catheters IV C[facility]ter Type (from [facility]): Port-a-cath Assessment/Plan Assessment/Plan [facility] Progress Note Date of Service: 09/21/16 Today's Impression & Plan: Overall stable. SBO still ongoing without showing sig bowel activity. No indication for acute surgical intervention. Transition point in the pelvis is tight and I'm a bit concerned that the patient will ultimately need surgical exploration to relieve the obstruction. Complicating factor is of course her stage 3 gastric malignancy. Clinically stable to continue current non-operative management for another few days, but will likely need the NG in place until she has flatus. Discussed with patient and answered all questions. With above assessment, I've recommended the following for today: 1. Cont current cares 2. Cont NG to LIS (ok with intermittent clamping, but need to check residuals and if more than 200, to please place back on LIS) 3. Cont NPO status (ice chips for comfort and only while NG to LIS; and will need to record amounts) 4. Keep inhouse Thank you again for your great care of this very pleasant patient and wonderful family. If there are any questions, please feel free to call me at [phone]. TOTAL VISIT TIME: 20 minutes of which more than half was spent in [id number] discussion with the patient, possibly including family, as well as coordination of care between multiple physicians and providers. Disclaimer: Inadvertent spelling or grammatical errors are likely due to EHR/ dictation software use and do not reflect on the overall quality of patient care. Updated Clinical Summary: The patient is a very pleasant but unfortunate 66-year-old lady with history of stage III stomach malignancy, status post resection followed by systemic chemotherapy as well as radiation at [facility], who presented to [facility] with bowel obstruction symptoms and CT findings on 2016 showing evidence for distal small-bowel obstruction with transition in the lower pelvis at the level of either a focal mass or a focally thickened distal small bowel wall. There was evidence of gastrectomy and partial gastrectomy with wall thickening of the gastric remnant or reconstructed pouch. Free fluid was seen throughout the abdomen and pelvis and a well-distended gallbladder without evidence of biliary dilatation was seen. Uterus was absent consistent with the patient's prior hysterectomy and she also had appendectomy in the past. COMORBIDITIES: 1. Gastric cancer stage III ([id number]) lymph nodes positive; + LVI; + PNI; initially s/p diagnostic laparoscopy with peritoneal washings at [facility] (Dr. Nisreen Baker) with thought of ruling out metastatic disease (which was not present) and neoadjuvant therapy, but patient represented with symptoms enough that Dr. Baker did not believe patient could tolerate neoadjuvant approach and therefore took her back on 11/19/15 and performed a subtotal gastrectomy with D2 lymphadenectomy. S/p systemic chemotherapy (FOLFOX completed 4 cycles 02/06/16) as well as radiation therapy with concurrent continuous infusional 5-FU 03/03/16, with patient reporting most recent CT scan showing a mass near the area of the resection and plan for followup CT in September prior to being admitted to [facility] with the above symptoms. 2. Previous hysterectomy with oophorectomy 3. Previous appendectomy. 4. Degenerative changes of lumbar spine. 5. Atherosclerotic vascular calcifications. 6. Simple cyst of lower pole of right kidney. 7. Peptic ulcer disease. 8. Reported history of inflammatory bowel syndrome. 9. History of dumping syndrome after gastrectomy. 10. Anxiety 11. HTN 12. Osteoarthritis 13. History of vertigo 14. Sister with breast cancer (dx at age 45; at age 50); mother in 1972 in the [facility] from pancreatic disease at age 46 (? cancer); maternal grandmother uterine cancer in her 70's; maternal uncle with ? oral ulcer disease (? malignancy) 15. Former smoker (quit 15-20 yrs ago) Subjective: No major events or complaints; no abd pain and under control with medications; no n/v/d; no sob or cp; - flatus; - BM; + activity Objective: Vitals: See below Exam: GENERAL: On exam, the patient was laying in bed and appeared to be comfortable and in no acute distress. ABDOMEN: Soft, nontender and nondistended. NG bilious. There are no peritoneal signs or guarding. SKIN: Skin appears to be pink and feels warm to touch. NEUROLOGIC: Patient is awake, alert, and follows commands appropriately. Exam/Review of Systems Vital Signs Vitals Vital Signs Date Time Temp Pulse Resp B/P Pulse Ox O2 Delivery O2 Flow Rate FiO2 3/27/17 07:31 98.5 68 18 139/66 99 09/19/16 02:00 Room Air Intake and Output 09/20/16 09/20/16 09/21/16 15:00 23:00 07:00 Intake Total 600 ml 660 ml 700 ml Output Total 700 ml 1200 ml Balance 600 ml -40 ml -500 ml Results Result Diagram: 09/21/16 0450 09/21/16 0450 JARRELL LAMBERT M.D. Sep 21, 2016 16:43
[2016-09-21 19:00] VITALS: BP 151/70; RESP 18
--- NOTE | 2016-09-21 22:37 | PN ---
DATE: 09/21/2016 SUBJECTIVE: The patient awake, alert. Still has no bowel movement or gas. OBJECTIVE: VITAL SIGNS: Temperature 98.5, blood pressure 139/66, pulse of 68, respiration rate 18, O2 saturation 99% on room air. HEENT: Pupils equally round, reactive to light. Nasogastric tube in place with bilious discharge. CHEST: Lungs are clear to auscultation. CARDIAC: Regular rate and rhythm. ABDOMEN: No active bowel sounds. Soft, nondistended, nontender. EXTREMITIES: No clubbing, cyanosis, or edema. LABORATORY DATA: WBC 4.5, hemoglobin 8.9, hematocrit 27.7, platelet count 229, 000. Sodium 140, potassium 3.6, chloride 106, carbon dioxide 30, BUN 5, creatinine 0.46, glucose 95. Liver enzymes are notable for decreased total protein of 5.3, decreased albumin of 2.6, and low calcium of 8.0. ASSESSMENT AND PLAN: 1. Small-bowel obstruction. Agree with current management by Dr. Michel. Continue nasogastric suction until patient has active bowel sounds or flatulence. Otherwise, may need a surgical decompression of obstructive lesion. 2. Stomach cancer, possible recurrence with thickening of the gastric remnant, but unclear if this is related to current bowel obstruction, which appears to be at a lower level and may be due to adhesion or metastatic disease. 3. Other problems stable. Continue current medications. 4. I will notify the patient's mangle roll operator, Dr. Cha, but at the moment , I do not believe we need to worry about. Dictated By: KOBY FRANCO MD DP/[place] Conf#: [id number] DID#: [id number] MTDD
[2016-09-22] MEDS: DEXTROSE 5%-0.9% NACL 1,000 ML IV SCH ×5 (02:00→21:30)
[2016-09-22] MEDS: METOCLOPRAMIDE 10 MG INJ IV SCH ×3 (06:00→21:30)
[2016-09-22 08:00] VITALS: BP 137/63; RESP 18
[2016-09-22] MEDS: LOSARTAN 50 MG TAB PO SCH (09:00)
[2016-09-22] MEDS: ENOXAPARIN 30 MG/0.3 ML SYG SC SCH (09:28)
--- NOTE | 2016-09-22 18:09 | PN ---
DATE: 09/22/2016 SUBJECTIVE: Patient awake, alert. Reports hearing bowel sounds occasionally but no gas or bowel mo vements yet. OBJECTIVE VITAL SIGNS: Temperature 98.2, blood pressure 137/63, pulse of 69, respiration rate 18, O2 saturati on 100%. HEENT: Pupils equally round, reactive to light. Anicteric sclerae. Oropharynx clear. CHEST: Lungs are clear to auscultation. CARDIAC: Regular rate and rhythm, normal S1, S2. ABDOMEN: Hypoactive bowel sounds, soft, nondistended, minimal left lower quadrant tenderness. No r ebound, no guarding. EXTREMITIES: No clubbing, cyanosis, or edema. ASSESSMENT AND PLAN: Small-bowel obstruction. Continue conservative measures. There are some sign s of peristalsis, but still no flatulence or bowel movement yet. Continue nasogastric suction and I V fluid hydration for now. Recheck lab tests in a.m. Dictated By: KOBY FRANCO MD DP/[place] Conf#: [id number] DID#: [id number]
[2016-09-22 20:21] VITALS: BP 141/65; RESP 18
[2016-09-23] MEDS: DEXTROSE 5%-0.9% NACL 1,000 ML IV SCH ×3 (03:00→13:03)
[2016-09-23] MEDS: METOCLOPRAMIDE 10 MG INJ IV SCH ×3 (05:13→22:00)
[2016-09-23 05:52] LABS: ADD SCAN DIFF NO
[2016-09-23 06:10] LABS: BASOPHILS % 0.6 % (0.0-2.0); EOSINOPHILS % 0.9 % (0.0-7.0); HEMATOCRIT 29.3 % (37.0-47.0); HEMOGLOBIN 9.4 g/dl (12.0-16.0); LYMPHOCYTES # 1.1 10^3/ul (0.8-2.9); LYMPHOCYTES % 30.7 % (15.0-51.0); MEAN CORPUSCULAR HEMOGLOBIN 28.5 pg (29.0-33.0); MEAN CORPUSCULAR HGB CONC 32.1 g/dl (32.0-37.0); MEAN CORPUSCULAR VOLUME 88.8 fl (82.0-101.0); MEAN PLATELET VOLUME 9.4 fl (7.4-10.4); MONOCYTE # 0.6 10^3/ul (0.3-0.9); NEUTROPHIL # 1.7 10^3/ul (1.6-7.5); NEUTROPHILS % 49.7 % (39.0-77.0); PLATELET COUNT 243 10^3/UL (140-415); RED CELL DISTRIBUTION WIDTH 14.1 % (11.5-14.5); WHITE BLOOD COUNT 3.4 10^3/ul (4.8-10.8)
[2016-09-23 06:19] LABS: ALBUMIN 2.8 g/dl (3.3-4.9)
[2016-09-23 06:20] LABS: POTASSIUM 3.1 mmol/L (3.5-5.1)
[2016-09-23 06:22] LABS: ALBUMIN/GLOBULIN RATIO 0.8; BILIRUBIN,INDIRECT 0.2 mg/dl (0-1.1); BILIRUBIN,TOTAL 0.2 mg/dl (0.2-1.3); CREATININE 0.45 mg/dl (0.44-1.00); TOTAL PROTEIN 6.3 g/dl (6.1-8.1)
[2016-09-23 06:23] LABS: MONOCYTES % 17.8 % (0.0-11.0)
[2016-09-23 07:55] VITALS: BP 108/57; RESP 18
[2016-09-23] MEDS: LOSARTAN 50 MG TAB PO SCH (08:22)
[2016-09-23] MEDS: ENOXAPARIN 30 MG/0.3 ML SYG SC SCH (09:39)
[2016-09-23] MEDS ORDERED: CEPASTAT LOZENGE MT PRN (17:30)
--- NOTE | 2016-09-23 17:49 | PN ---
DATE: 09/23/2016 SUBJECTIVE: Patient is awake and alert. Reports occasional peristalsis, but no gas or bowel moveme nts yet. OBJECTIVE: VITAL SIGNS: Temperature 98.1, blood pressure 108/57, pulse of 68, respiration rate 18, O2 saturati on 99% on room air. She also complains of right-sided throat soreness with swallowing and the pain radiates to her right ear. HEENT: Pupils are equally round, reactive to light. There is a nasogastric tube on the left nostri l. Oropharynx appears normal and pink without swelling or erythema. Bilateral tympanic membranes a re within normal limits. LUNGS: Clear to auscultation. CARDIAC: Regular rate and rhythm, normal S1, S2. ABDOMEN: Active bowel sounds, soft, nondistended, nontender. CHEST: Lungs are clear to auscultation anteriorly. CARDIAC: Regular rate and rhythm, 2/6 systolic murmur. ABDOMEN: Hypoactive bowel sounds, soft. Mild left lower quadrant tenderness without rebound, no gu arding. EXTREMITIES: No clubbing, cyanosis, or edema. LABORATORY DATA: WBC 3.4, hemoglobin 9.4, hematocrit 29.3, platelet count 243,000. ESR 19. Sodium 137, potassium 3.1, chloride 103, carbon dioxide 30, BUN 3, creatinine 0.45, glucose 91. ASSESSMENT AND PLAN: 1. Small-bowel obstruction. Patient with very minimal improvement in clinical status. However, meghana herrera did have some multiple abdominal surgeries in the past and would like to minimize. The need for a nother surgery if possible, so we will give her another few days and see if her small-bowel obstruct ion improves. 2. Sore throat, most likely due to dryness due to left nose obstruction. We will try ice chips and Cepacol throat spray but consider laryngoscopy if symptoms worsen since patient is at high risk of developing viral pharyngitis and esophagitis. 3. Stomach cancer. The patient's ceo [place] has been notified, but no treatment is planned at this time pending resolution of current active problems. 4. Hypokalemia. We will replace potassium and add KCl to current IV fluid. Dictated By: KOBY PLUNKETT/NTS Conf#: [id number] DID#: [id number]
--- NOTE | 2016-09-23 18:05 | PN ---
Date/Time of Note Date/Time of Note DATE: 09/23/16 TIME: 18:04 Assessment/Plan Lines/Catheters IV Catheter Type (from [facility]): Peripheral IV Assessment/Plan Assessment/Plan [facility] Progress Note Date of Service: 09/23/16 Today's Impression & Plan: Overall stable. SBO still ongoing without showing sig bowel activity. No indication for acute surgical intervention, but as time passes, likelihood will increase. Discussed with patient and answered all questions. With above assessment, I've recommended the following for today: 1. Cont current cares 2. Cont NG to LIS (ok with intermittent clamping, but need to check residuals and if more than 200, to please place back on LIS) 3. Cont NPO status (ice chips for comfort and only while NG to LIS; and will need to record amounts) 4. Keep inhouse Thank you again for your great care of this very pleasant patient and wonderful family. If there are any questions, please feel free to call me at [phone]. TOTAL VISIT TIME: 20 minutes of which more than half was spent in [id number] discussion with the patient, possibly including family, as well as coordination of care between multiple physicians and providers. Disclaimer: Inadvertent spelling or grammatical errors are likely due to EHR/ dictation software use and do not reflect on the overall quality of patient care. Updated Clinical Summary: The patient is a very pleasant but unfortunate 66-year-old lady with history of stage III stomach malignancy, status post resection followed by systemic chemotherapy as well as radiation at [facility], who presented to [facility] with bowel obstruction symptoms and CT findings on 2016 showing evidence for distal small-bowel obstruction with transition in the lower pelvis at the level of either a focal mass or a focally thickened distal small bowel wall. There was evidence of gastrectomy and partial gastrectomy with wall thickening of the gastric remnant or reconstructed pouch. Free fluid was seen throughout the abdomen and pelvis and a well-distended gallbladder without evidence of biliary dilatation was seen. Uterus was absent consistent with the patient's prior hysterectomy and she also had appendectomy in the past. COMORBIDITIES: 1. Gastric cancer stage III ([id number]) lymph nodes positive; + LVI; + PNI; initially s/p diagnostic laparoscopy with peritoneal washings at [facility] (Dr. Nisreen Baker) with thought of ruling out metastatic disease (which was not present) and neoadjuvant therapy, but patient represented with symptoms enough that Dr. Baker did not believe patient could tolerate neoadjuvant approach and therefore took her back on 11/19/15 and performed a subtotal gastrectomy with D2 lymphadenectomy. S/p systemic chemotherapy (FOLFOX completed 4 cycles 02/06/16) as well as radiation therapy with concurrent continuous infusional 5-FU 03/03/16, with patient reporting most recent CT scan showing a mass near the area of the resection and plan for followup CT in September prior to being admitted to [facility] with the above symptoms. 2. Previous hysterectomy with oophorectomy 3. Previous appendectomy. 4. Degenerative changes of lumbar spine. 5. Atherosclerotic vascular calcifications. 6. Simple cyst of lower pole of right kidney. 7. Peptic ulcer disease. 8. Reported history of inflammatory bowel syndrome. 9. History of dumping syndrome after gastrectomy. 10. Anxiety 11. HTN 12. Osteoarthritis 13. History of vertigo 14. Sister with breast cancer (dx at age 45; at age 50); mother in 1972 in the [facility] from pancreatic disease at age 46 (? cancer); maternal grandmother uterine cancer in her 70's; maternal uncle with ? oral ulcer disease (? malignancy) 15. Former smoker (quit 15-20 yrs ago) Subjective: No major events or complaints; no abd pain and under control with medications; no n/v/d; no sob or cp; - flatus; - BM; + activity Objective: Vitals: See below Exam: GENERAL: On exam, the patient was laying in bed and appeared to be comfortable and in no acute distress. ABDOMEN: Soft, nontender and nondistended. NG bilious. There are no peritoneal signs or guarding. SKIN: Skin appears to be pink and feels warm to touch. NEUROLOGIC: Patient is awake, alert, and follows commands appropriately. Exam/Review of Systems Vital Signs Vitals Vital Signs Date Time Temp Pulse Resp B/P Pulse Ox O2 Delivery O2 Flow Rate FiO2 09/23/16 07:55 98.1 68 18 108/57 99 Intake and Output 09/22/16 09/22/16 09/23/16 15:00 23:00 07:00 Intake Total 0 ml 1000 ml 1200 ml Output Total 350 ml Balance 0 ml 1000 ml 850 ml Results Result Diagram: 09/23/16 0528 09/23/16 0528 JARRELL LAMBERT M.D. Sep 23, 2016 18:05
[2016-09-23] MEDS ORDERED: POTASSIUM CHLORIDE 20 MEQ in SOD CHLORIDE 0.9% 100 ML IVPB ONE (18:30)
[2016-09-23] MEDS: D5-NS + KCL 20 MEQ 1,000 ML IV SCH (18:39)
[2016-09-23 20:16] VITALS: BP 154/67; RESP 19
[2016-09-24] MEDS: D5-NS + KCL 20 MEQ 1,000 ML IV SCH ×4 (03:30→23:14)
[2016-09-24] MEDS: METOCLOPRAMIDE 10 MG INJ IV SCH ×3 (04:58→18:40)
[2016-09-24 06:28] LABS: POTASSIUM 3.6 mmol/L (3.5-5.1)
[2016-09-24 06:30] LABS: CREATININE 0.48 mg/dl (0.44-1.00)
[2016-09-24 06:31] LABS: CALCIUM 8.1 mg/dl (8.4-10.2)
[2016-09-24 07:58] VITALS: BP 143/64; RESP 18
[2016-09-24] MEDS: LOSARTAN 50 MG TAB PO SCH (09:00)
[2016-09-24] MEDS: ENOXAPARIN 30 MG/0.3 ML SYG SC SCH (11:20)
--- NOTE | 2016-09-24 16:55 | PN ---
Date/Time of Note Date/Time of Note DATE: 09/24/16 TIME: 16:52 Assessment/Plan Lines/Catheters IV Catheter Type (from Nrs): Peripheral IV Assessment/Plan Assessment/Plan [facility] Progress Note Date of Service: 09/24/16 Today's Impression & Plan: Overall stable. SBO still ongoing without showing sig bowel activity. No indication for acute surgical intervention, but as time passes, likelihood will increase. Tentatively have placed patient on the OR schedule for Wednesday. Discussed with patient and answered all questions. With above assessment, I've recommended the following for today: 1. Cont current cares 2. Cont NG to LIS (ok with intermittent clamping, but need to check residuals and if more than 200, to please place back on LIS) 3. Cont NPO status (ice chips for comfort and only while NG to LIS; and will need to record amounts) 4. Keep inhouse Thank you again for your great care of this very pleasant patient and wonderful family. If there are any questions, please feel free to call me at [phone]. TOTAL VISIT TIME: 20 minutes of which more than half was spent in [id number] discussion with the patient, possibly including family, as well as coordination of care between multiple physicians and providers. Disclaimer: Inadvertent spelling or grammatical errors are likely due to EHR/ dictation software use and do not reflect on the overall quality of patient care. Updated Clinical Summary: The patient is a very pleasant but unfortunate 66-year-old lady with history of stage III stomach malignancy, status post resection followed by systemic chemotherapy as well as radiation at [facility], who presented to [facility] with bowel obstruction symptoms and CT findings on 2016 showing evidence for distal small-bowel obstruction with transition in the lower pelvis at the level of either a focal mass or a focally thickened distal small bowel wall. There was evidence of gastrectomy and partial gastrectomy with wall thickening of the gastric remnant or reconstructed pouch. Free fluid was seen throughout the abdomen and pelvis and a well-distended gallbladder without evidence of biliary dilatation was seen. Uterus was absent consistent with the patient's prior hysterectomy and she also had appendectomy in the past. COMORBIDITIES: 1. Gastric cancer stage III ([id number]) lymph nodes positive; + LVI; + PNI; initially s/p diagnostic laparoscopy with peritoneal washings at [facility] (Dr. Nisreen Baker) with thought of ruling out metastatic disease (which was not present) and neoadjuvant therapy, but patient represented with symptoms enough that Dr. Baker did not believe patient could tolerate neoadjuvant approach and therefore took her back on 11/19/15 and performed a subtotal gastrectomy with D2 lymphadenectomy. S/p systemic chemotherapy (FOLFOX completed 4 cycles 02/06/16) as well as radiation therapy with concurrent continuous infusional 5-FU 03/03/16, with patient reporting most recent CT scan showing a mass near the area of the resection and plan for followup CT in September prior to being admitted to [facility] with the above symptoms. 2. Previous hysterectomy with oophorectomy 3. Previous appendectomy. 4. Degenerative changes of lumbar spine. 5. Atherosclerotic vascular calcifications. 6. Simple cyst of lower pole of right kidney. 7. Peptic ulcer disease. 8. Reported history of inflammatory bowel syndrome. 9. History of dumping syndrome after gastrectomy. 10. Anxiety 11. HTN 12. Osteoarthritis 13. History of vertigo 14. Sister with breast cancer (dx at age 45; at age 50); mother in 1972 in the [facility] from pancreatic disease at age 46 (? cancer); maternal grandmother uterine cancer in her 70's; maternal uncle with ? oral ulcer disease (? malignancy) 15. Former smoker (quit 15-20 yrs ago) Subjective: No major events or complaints; no abd pain and under control with medications; no n/v/d; no sob or cp; - flatus; - BM; + activity Objective: Vitals: See below Exam: GENERAL: On exam, the patient was laying in bed and appeared to be comfortable and in no acute distress. ABDOMEN: Soft, nontender and nondistended. NG bilious. There are no peritoneal signs or guarding. SKIN: Skin appears to be pink and feels warm to touch. NEUROLOGIC: Patient is awake, alert, and follows commands appropriately. Exam/Review of Systems Vital Signs Vitals Vital Signs Date Time Temp Pulse Resp B/P Pulse Ox O2 Delivery O2 Flow Rate FiO2 09/24/16 07:58 98.6 64 18 143/64 97 Intake and Output 09/23/16 09/23/16 09/24/16 15:00 23:00 07:00 Intake Total 400 ml 850 ml Output Total 800 ml 800 ml Balance -400 ml 50 ml Results Result Diagram: 09/23/16 0528 09/24/16 0515 JARRELL LAMBERT M.D. Sep 24, 2016 16:55
--- NOTE | 2016-09-24 18:32 | PN ---
DATE: 09/24/2016 SUBJECTIVE: Patient awake, alert. No active complaints. Also no gas or bowel movement yet. OBJECTIVE: VITAL SIGNS: Temperature 98.0, blood pressure 143/64, pulse of 64, respiration rate 18, O2 saturati on 97% on room air. HEENT: Pupils equally round, reactive to light. Left nasogastric tube in place. Oropharynx clear without erythema. Bilateral tympanic membranes normal without erythema. CHEST: Lungs are clear to auscultation. CARDIAC: Regular rate and rhythm, normal S1, S2. ABDOMEN: Hypoactive bowel sounds. Soft. Minimal left lower quadrant tenderness. EXTREMITIES: No clubbing, cyanosis, or edema. LABORATORY DATA: Sodium 138, potassium 3.6, BUN 4, creatinine 0.48, glucose 93. ASSESSMENT AND PLAN: 1. Small-bowel obstruction. Continue conservative measures, but if patient has no movement by sherylcelena alford, we will probably have to schedule for exploratory laparoscopy. 2. Stomach cancer. Patient has plans to follow up with [facility] next month. Dictated By: KOBY FRANCO MD DP/NTS Conf#: [id number] DID#: [id number]
[2016-09-24 20:36] VITALS: BP 125/57; RESP 18
[2016-09-25] MEDS: METOCLOPRAMIDE 10 MG INJ IV SCH ×3 (06:21→22:07)
[2016-09-25] MEDS: D5-NS + KCL 20 MEQ 1,000 ML IV SCH ×3 (06:21→16:52)
[2016-09-25 07:00] VITALS: BP 122/60; RESP 18
[2016-09-25] MEDS: ENOXAPARIN 30 MG/0.3 ML SYG SC SCH (08:33)
[2016-09-25] MEDS: LOSARTAN 50 MG TAB PO SCH (08:45)
--- NOTE | 2016-09-25 16:09 | PN ---
Date/Time of Note Date/Time of Note DATE: 09/25/16 TIME: 16:04 Assessment/Plan Lines/Catheters IV Catheter Type (from [facility]): Peripheral IV [place] in Place (from Nrs): No Assessment/Plan Assessment/Plan [facility] Progress Note Date of Service: 09/25/16 Today's Impression & Plan: Overall stable. SBO still ongoing without showing sig bowel activity. No indication for acute surgical intervention, but as time passes, likelihood will increase. Tentatively have placed patient on the OR schedule for Wednesday. Discussed with patient and family and answered all questions. With above assessment, I've recommended the following for today: 1. Cont current cares 2. Cont NG to LIS 3. Cont NPO status 4. Keep inhouse 5. Consider PICC line and starting TPN since albumin is 2.8 and patient will likely not be able to tolerate much calories for a few days post op Thank you again for your great care of this very pleasant patient and wonderful family. If there are any questions, please feel free to call me at [phone]. TOTAL VISIT TIME: 20 minutes of which more than half was spent in [id number] discussion with the patient, possibly including family, as well as coordination of care between multiple physicians and providers. Disclaimer: Inadvertent spelling or grammatical errors are likely due to EHR/ dictation software use and do not reflect on the overall quality of patient care. Updated Clinical Summary: The patient is a very pleasant but unfortunate 66-year-old lady with history of stage III stomach malignancy, status post resection followed by systemic chemotherapy as well as radiation at [facility], who presented to [facility] with bowel obstruction symptoms and CT findings on 2016 showing evidence for distal small-bowel obstruction with transition in the lower pelvis at the level of either a focal mass or a focally thickened distal small bowel wall. There was evidence of gastrectomy and partial gastrectomy with wall thickening of the gastric remnant or reconstructed pouch. Free fluid was seen throughout the abdomen and pelvis and a well-distended gallbladder without evidence of biliary dilatation was seen. Uterus was absent consistent with the patient's prior hysterectomy and she also had appendectomy in the past. COMORBIDITIES: 1. Gastric cancer stage III ([id number]) lymph nodes positive; + LVI; + PNI; initially s/p diagnostic laparoscopy with peritoneal washings at [facility] (Dr. Nisreen Baker) with thought of ruling out metastatic disease (which was not present) and neoadjuvant therapy, but patient represented with symptoms enough that Dr. Baker did not believe patient could tolerate neoadjuvant approach and therefore took her back on 11/19/15 and performed a subtotal gastrectomy with D2 lymphadenectomy. S/p systemic chemotherapy (FOLFOX completed 4 cycles 02/06/16) as well as radiation therapy with concurrent continuous infusional 5-FU 03/03/16, with patient reporting most recent CT scan showing a mass near the area of the resection and plan for followup CT in September prior to being admitted to [facility] with the above symptoms. 2. Previous hysterectomy with oophorectomy 3. Previous appendectomy. 4. Degenerative changes of lumbar spine. 5. Atherosclerotic vascular calcifications. 6. Simple cyst of lower pole of right kidney. 7. Peptic ulcer disease. 8. Reported history of inflammatory bowel syndrome. 9. History of dumping syndrome after gastrectomy. 10. Anxiety 11. HTN 12. Osteoarthritis 13. History of vertigo 14. Sister with breast cancer (dx at age 45; at age 50); mother in 1972 in the [facility] from pancreatic disease at age 46 (? cancer); maternal grandmother uterine cancer in her 70's; maternal uncle with ? oral ulcer disease (? malignancy) 15. Former smoker (quit 15-20 yrs ago) Subjective: No major events or complaints; no abd pain and under control with medications; no n/v/d; no sob or cp; - flatus; - BM; + activity Objective: Vitals: See below Exam: GENERAL: On exam, the patient was sitting in a chair being visited by her three children and appeared to be comfortable and in no acute distress. ABDOMEN: Soft, nontender and nondistended. NG bilious. There are no peritoneal signs or guarding. SKIN: Skin appears to be pink and feels warm to touch. NEUROLOGIC: Patient is awake, alert, and follows commands appropriately. Exam/Review of Systems Vital Signs Vitals Vital Signs Date Time Temp Pulse Resp B/P Pulse Ox O2 Delivery O2 Flow Rate FiO2 09/25/16 07:00 99.0 66 18 122/60 97 Intake and Output 09/24/16 09/24/16 09/25/16 15:00 23:00 07:00 Intake Total 1000 ml 1000 ml Output Total 50 ml 50 ml Balance 950 ml 950 ml Results Result Diagram: 09/23/16 0528 09/24/16 0515 JARRELL LAMBRET M.D. Sep 25, 2016 16:08
[2016-09-25] MEDS ORDERED: TPN 1,000 ML IV SCH (18:00)
--- NOTE | 2016-09-25 18:02 | PN ---
DATE: 09/25/2016 SUBJECTIVE: The patient is awake, alert. No current complaints but reports no gas or bowel movemen t still. OBJECTIVE: VITAL SIGNS: Temperature 9930, blood pressure 122/60, pulse of 66, respiration rate 18, O2 saturati on 97% on room air. HEENT: Pupils equally round and reactive to light. Oropharynx clear. LUNGS: Clear to auscultation. CARDIAC: Regular rate and rhythm, normal S1 and S2. ABDOMEN: No bowel sounds. Nondistended. Minimal left lower quadrant tenderness. EXTREMITIES: No clubbing, cyanosis, or edema. ASSESSMENT AND PLAN: 1. Acute small bowel obstruction. The patient is not improving with conservative measures. May ne ed to undergo surgery on Wednesday or Wednesday per surgical consultants plan. 2. Stomach cancer. There is some evidence of local recurrence which is not unlikely in this patien t with such aggressive high grade tumor, but it is unclear if her current small bowel obstruction is related to recurrent or metastatic disease or adhesions from her multiple surgeries. We will await the result of the patient's surgery before further plans regarding her stomach cancer. The patient 's sprinkler driver, Dr. Teresa Cha, has been notified, and she has plans for followup with her oncologist at [facility]. Dictated By: KOBY FRANCO MD DP/OH Conf#: [id number] DID#: [id number]
[2016-09-25 20:16] VITALS: BP 136/64; RESP 20
[2016-09-25] MEDS: ACCU-CHEK XX SCH (20:46)
[2016-09-25] MEDS: TPN 1,000 ML IV SCH (22:13)
[2016-09-26] MEDS: ACCU-CHEK XX SCH ×6 (01:38→21:00)
[2016-09-26] MEDS: TPN 1,000 ML IV SCH ×2 (06:00→18:03)
[2016-09-26 06:25] LABS: ADD SCAN DIFF NO
[2016-09-26] MEDS: METOCLOPRAMIDE 10 MG INJ IV SCH ×3 (06:35→21:31)
[2016-09-26 06:41] LABS: BASOPHILS % 0.5 % (0.0-2.0); EOSINOPHILS % 0.7 % (0.0-7.0); HEMATOCRIT 29.4 % (37.0-47.0); HEMOGLOBIN 9.4 g/dl (12.0-16.0); LYMPHOCYTES # 1.3 10^3/ul (0.8-2.9); LYMPHOCYTES % 31.5 % (15.0-51.0); MEAN CORPUSCULAR HEMOGLOBIN 28.7 pg (29.0-33.0); MEAN CORPUSCULAR VOLUME 89.6 fl (82.0-101.0); MEAN PLATELET VOLUME 9.5 fl (7.4-10.4); MONOCYTE # 0.6 10^3/ul (0.3-0.9); MONOCYTES % 14.5 % (0.0-11.0); NEUTROPHIL # 2.1 10^3/ul (1.6-7.5); NEUTROPHILS % 52.6 % (39.0-77.0); PLATELET COUNT 245 10^3/UL (140-415); RED BLOOD COUNT 3.28 10^6/ul (4.20-5.40); RED CELL DISTRIBUTION WIDTH 14.1 % (11.5-14.5); WHITE BLOOD COUNT 4.1 10^3/ul (4.8-10.8)
[2016-09-26 07:04] LABS: ALBUMIN 2.9 g/dl (3.3-4.9); POTASSIUM 3.8 mmol/L (3.5-5.1)
[2016-09-26 07:06] LABS: BILIRUBIN,INDIRECT 0.3 mg/dl (0-1.1); BILIRUBIN,TOTAL 0.3 mg/dl (0.2-1.3); CREATININE 0.51 mg/dl (0.44-1.00)
[2016-09-26 07:07] LABS: ALBUMIN/GLOBULIN RATIO 0.93; CALCIUM 8.4 mg/dl (8.4-10.2)
[2016-09-26 07:38] LABS: MAGNESIUM 1.7 mg/dl (1.7-2.5); PHOSPHORUS 4.5 mg/dl (2.5-4.9)
[2016-09-26 07:45] LABS: PREALBUMIN 5.1 mg/dl (17.6-36.0)
[2016-09-26 08:01] VITALS: BP 117/59; RESP 20
[2016-09-26] MEDS: LOSARTAN 50 MG TAB PO SCH (09:00)
[2016-09-26] MEDS: ENOXAPARIN 30 MG/0.3 ML SYG SC SCH (09:22)
--- NOTE | 2016-09-26 12:07 | PN ---
Date/Time of Note Date/Time of Note DATE: 09/26/16 TIME: 12:03 Assessment/Plan VTE Prophylaxis VTE Prophylaxis Intervention: anti-embolic stocking Lines/Catheters IV Catheter Type (from Nrs): Peripheral IV Central line still needed: No Urinary Cath still in place: No Assessment/Plan Assessment/Plan 1. CONT SBO 2. H/O GASTRIC CA 3. LOW ALB 4. ANEMIA ---PER GI ---PER SURG ---CONT ALL IV F INC TPN ---CONT ATBX ---CONT ALL SUPPORTIVE ANCILIARY CARES Subjective 24 Hr Interval Summary Subjective hx not possible: other (NO COMPLAINTS) Exam/Review of Systems Vital Signs Vitals Vital Signs Date Time Temp Pulse Resp B/P Pulse Ox O2 Delivery O2 Flow Rate FiO2 09/26/16 08:01 98.0 70 20 117/59 98 Intake and Output 09/25/16 09/25/16 09/26/16 15:00 23:00 07:00 Intake Total 1510 ml 700 ml Balance 1510 ml 700 ml Exam TPN STARTED. THIN SLIGHT EPIGASTRIC TENDER+ CTA RR SYST M+ NO C/C/E Results Result Diagram: 09/26/16 0520 09/26/16 0520 Results 24 hrs Laboratory Tests Test 09/25/16 20:44 09/26/16 01:24 09/26/16 05:20 09/26/16 05:40 Bedside Glucose 73 97 108 White Blood Count 4.1 #L Red Blood Count 3.28 L Hemoglobin 9.4 L Hematocrit 29.4 L Mean Corpuscular Volume 89.6 Mean Corpuscular Hemoglobin 28.7 L Mean Corpuscular Hemoglobin Concent 32.0 Red Cell Distribution Width 14.1 Platelet Count 245 Mean Platelet Volume 9.5 Neutrophils % 52.6 Lymphocytes % 31.5 Monocytes % 14.5 H Eosinophils % 0.7 Basophils % 0.5 Nucleated Red Blood Cells % 0.0 Neutrophils # 2.1 Lymphocytes # 1.3 Monocytes # 0.6 Eosinophils # 0.0 Basophils # 0.0 Nucleated Red Blood Cells # 0.0 Sodium Level 135 Potassium Level 3.8 Chloride Level 101 Carbon Dioxide Level 28 Anion Gap 10 Blood Urea Nitrogen 8 Creatinine 0.51 Glucose Level 101 Calcium Level 8.4 Phosphorus Level 4.5 Magnesium Level 1.7 Total Bilirubin 0.3 Direct Bilirubin 0.00 Indirect Bilirubin 0.3 Aspartate Amino Transf (AST/SGOT) 29 Alanine Aminotransferase (ALT/SGPT) 25 Alkaline Phosphatase 77 Total Protein 6.0 L Albumin 2.9 L Globulin 3.10 Albumin/Globulin Ratio 0.93 Prealbumin 5.1 L Triglycerides Level 90 Test 09/26/16 09:16 Bedside Glucose 89 Medications Medications Current Medications Enoxaparin Sodium (Lovenox) 30 mg DAILY SC Last administered on 09/26/16 09:22 ; Admin Dose 30 MG; Start 09/19/16 at 09:00 Ondansetron HCl (Zofran Inj) 4 mg Q4H PRN IV NAUSEA AND/OR VOMITING; Start at 04:00 Morphine Sulfate (morphine) 2 mg Q4H PRN IV PAIN Last administered on 14:14; Admin Dose 1 MG; Start 09/19/16 at 04:00 Losartan Potassium (Cozaar) 50 mg DAILY PO ; Start 09/19/16 at 09:00 Clonidine (Catapres) 0.1 mg TID PRN PO ELEVATED BLOOD PRESSURE; Start 09/19/16 at 04:00 Metoclopramide HCl 10 mg 10 mg Q8 IV Last administered on 09/26/16 06:35; Admin Dose 10 MG; Start 09/19/16 at 14:00 Potassium Chloride/Dextrose/ Sod Cl (D5-NS + KCl 20 Meq) 1,000 ml @ 100 mls/hr Q10H IV Last administered on 09/25/16 16:52; Admin Dose 100 MLS/HR; Start at 17:30; Status Future Hold Phenol 1 lozenge 1 lozenge Q1H PRN CO sorethroat; Start 09/23/16 at 17:30 Total Parenteral Nutrition (Tpn) 1,000 ml @ 100 mls/hr Q10H IV Last administered on 09/25/16 22:13; Admin Dose 100 MLS/HR; Start 09/25/16 at 20:00 Diagnostic Test (Pha) (Accu-Chek) 1 ea Q4 XX Last administered on 09/26/16 09: 18; Admin Dose 1 EA; Start 09/25/16 at 21:00 ARI GARCIA MD Sep 26, 2016 12:07
[2016-09-26 19:36] VITALS: BP 136/65; RESP 20
--- NOTE | 2016-09-26 22:15 | PN ---
Date/Time of Note Date/Time of Note DATE: 09/26/16 TIME: 22:10 Assessment/Plan Lines/Catheters IV Catheter Type (from [facility]): Peripheral IV Layton in Place (from [facility]): No Assessment/Plan Assessment/Plan [facility] Progress Note Date of Service: 09/26/16 Today's Impression & Plan: Overall stable. SBO still ongoing without showing sig bowel activity. No indication for acute surgical intervention. Likely iwll need surgical intervention. Discussed with patient and answered all questions. With above assessment, I've recommended the following for today: 1. Cont current cares 2. Cont NG to LIS 3. Cont NPO status 4. Keep inhouse 5. Continue PICC line and starting TPN since albumin is 2.8 and patient will likely not be able to tolerate much calories for a few days post op Thank you again for your great care of this very pleasant patient and wonderful family. If there are any questions, please feel free to call me at [phone]. TOTAL VISIT TIME: 20 minutes of which more than half was spent in [id number] discussion with the patient, possibly including family, as well as coordination of care between multiple physicians and providers. Disclaimer: Inadvertent spelling or grammatical errors are likely due to EHR/ dictation software use and do not reflect on the overall quality of patient care. Updated Clinical Summary: The patient is a very pleasant but unfortunate 66-year-old lady with history of stage III stomach malignancy, status post resection followed by systemic chemotherapy as well as radiation at [facility], who presented to [facility] with bowel obstruction symptoms and CT findings on 2016 showing evidence for distal small-bowel obstruction with transition in the lower pelvis at the level of either a focal mass or a focally thickened distal small bowel wall. There was evidence of gastrectomy and partial gastrectomy with wall thickening of the gastric remnant or reconstructed pouch. Free fluid was seen throughout the abdomen and pelvis and a well-distended gallbladder without evidence of biliary dilatation was seen. Uterus was absent consistent with the patient's prior hysterectomy and she also had appendectomy in the past. COMORBIDITIES: 1. Gastric cancer stage III ([id number]) lymph nodes positive; + LVI; + PNI; initially s/p diagnostic laparoscopy with peritoneal washings at [facility] (Dr. Nisreen Baker) with thought of ruling out metastatic disease (which was not present) and neoadjuvant therapy, but patient represented with symptoms enough that Dr. Baker did not believe patient could tolerate neoadjuvant approach and therefore took her back on 11/19/15 and performed a subtotal gastrectomy with D2 lymphadenectomy. S/p systemic chemotherapy (FOLFOX completed 4 cycles 02/06/16) as well as radiation therapy with concurrent continuous infusional 5-FU 03/03/16, with patient reporting most recent CT scan showing a mass near the area of the resection and plan for followup CT in September prior to being admitted to [facility] with the above symptoms. 2. Previous hysterectomy with oophorectomy 3. Previous appendectomy. 4. Degenerative changes of lumbar spine. 5. Atherosclerotic vascular calcifications. 6. Simple cyst of lower pole of right kidney. 7. Peptic ulcer disease. 8. Reported history of inflammatory bowel syndrome. 9. History of dumping syndrome after gastrectomy. 10. Anxiety 11. HTN 12. Osteoarthritis 13. History of vertigo 14. Sister with breast cancer (dx at age 45; at age 50); mother in 1972 in the [facility] from pancreatic disease at age 46 (? cancer); maternal grandmother uterine cancer in her 70's; maternal uncle with ? oral ulcer disease (? malignancy) 15. Former smoker (quit 15-20 yrs ago) Subjective: No major events or complaints; no abd pain and under control with medications; no n/v/d; no sob or cp; - flatus; - BM; + activity Objective: Vitals: See below Exam: GENERAL: On exam, the patient was sitting in a chair being visited by her three children and appeared to be comfortable and in no acute distress. ABDOMEN: Soft, nontender and nondistended. NG bilious. There are no peritoneal signs or guarding. SKIN: Skin appears to be pink and feels warm to touch. NEUROLOGIC: Patient is awake, alert, and follows commands appropriately. Exam/Review of Systems Vital Signs Vitals Vital Signs Date Time Temp Pulse Resp B/P Pulse Ox O2 Delivery O2 Flow Rate FiO2 09/26/16 19:36 98.4 62 20 136/65 98 Intake and Output 09/25/16 09/25/16 09/26/16 15:00 23:00 07:00 Intake Total 1510 ml 700 ml Balance 1510 ml 700 ml Results Result Diagram: 09/26/16 0520 09/26/16 0520 JARRELL LAMBERT M.D. Sep 26, 2016 22:15
[2016-09-27] MEDS: ACCU-CHEK XX SCH ×4 (01:00→17:34)
[2016-09-27] MEDS: TPN 1,000 ML IV SCH ×2 (04:00→12:59)
[2016-09-27 04:29] VITALS: BP 155/82; PULSE 91
[2016-09-27] MEDS: METOCLOPRAMIDE 10 MG INJ IV SCH ×3 (06:06→21:29)
[2016-09-27 06:59] LABS: POTASSIUM 4.4 mmol/L (3.5-5.1)
[2016-09-27 07:02] LABS: CREATININE 0.57 mg/dl (0.44-1.00)
[2016-09-27 07:03] LABS: CALCIUM 8.4 mg/dl (8.4-10.2); MAGNESIUM 1.9 mg/dl (1.7-2.5); PHOSPHORUS 4.7 mg/dl (2.5-4.9)
--- NOTE | 2016-09-27 07:41 | PN ---
Date/Time of Note Date/Time of Note DATE: 09/27/16 TIME: 07:39 Assessment/Plan Lines/Catheters IV Catheter Type (from Nrs): Peripheral IV Layton in Place (from Nrs): No Assessment/Plan Assessment/Plan [facility] Progress Note Date of Service: 09/27/16 Today's Impression & Plan: Overall stable. SBO still ongoing without showing sig bowel activity. No indication for acute surgical intervention today. On the schedule for exploration on Tue am. With above assessment, I've recommended the following for today: 1. Cont current cares 2. Cont NG to LIS 3. Cont NPO status 4. Keep inhouse 5. Continue PICC line and TPN 6. To OR on Tue for laparoscopic, possible open, exploration, possible bowel resection, possible ostomy Thank you again for your great care of this very pleasant patient and wonderful family. If there are any questions, please feel free to call me at [phone]. TOTAL VISIT TIME: 20 minutes of which more than half was spent in [id number] discussion with the patient, possibly including family, as well as coordination of care between multiple physicians and providers. Disclaimer: Inadvertent spelling or grammatical errors are likely due to EHR/ dictation software use and do not reflect on the overall quality of patient care. Updated Clinical Summary: The patient is a very pleasant but unfortunate 66-year-old lady with history of stage III stomach malignancy, status post resection followed by systemic chemotherapy as well as radiation at [facility], who presented to [facility] with bowel obstruction symptoms and CT findings on 2016 showing evidence for distal small-bowel obstruction with transition in the lower pelvis at the level of either a focal mass or a focally thickened distal small bowel wall. There was evidence of gastrectomy and partial gastrectomy with wall thickening of the gastric remnant or reconstructed pouch. Free fluid was seen throughout the abdomen and pelvis and a well-distended gallbladder without evidence of biliary dilatation was seen. Uterus was absent consistent with the patient's prior hysterectomy and she also had appendectomy in the past. COMORBIDITIES: 1. Gastric cancer stage III ([id number]) lymph nodes positive; + LVI; + PNI; initially s/p diagnostic laparoscopy with peritoneal washings at [facility] (Dr. Nisreen Baker) with thought of ruling out metastatic disease (which was not present) and neoadjuvant therapy, but patient represented with symptoms enough that Dr. Baker did not believe patient could tolerate neoadjuvant approach and therefore took her back on 11/19/15 and performed a subtotal gastrectomy with D2 lymphadenectomy. S/p systemic chemotherapy (FOLFOX completed 4 cycles 02/06/16) as well as radiation therapy with concurrent continuous infusional 5-FU 03/03/16, with patient reporting most recent CT scan showing a mass near the area of the resection and plan for followup CT in September prior to being admitted to [facility] with the above symptoms. 2. Previous hysterectomy with oophorectomy 3. Previous appendectomy. 4. Degenerative changes of lumbar spine. 5. Atherosclerotic vascular calcifications. 6. Simple cyst of lower pole of right kidney. 7. Peptic ulcer disease. 8. Reported history of inflammatory bowel syndrome. 9. History of dumping syndrome after gastrectomy. 10. Anxiety 11. HTN 12. Osteoarthritis 13. History of vertigo 14. Sister with breast cancer (dx at age 45; at age 50); mother in 1972 in the [facility] from pancreatic disease at age 46 (? cancer); maternal grandmother uterine cancer in her 70's; maternal uncle with ? oral ulcer disease (? malignancy) 15. Former smoker (quit 15-20 yrs ago) Subjective: No major events or complaints; no abd pain and under control with medications; no n/v/d; no sob or cp; - flatus; - BM; + activity Objective: Vitals: See below Exam: GENERAL: On exam, the patient was laying in bed and appeared to be comfortable and in no acute distress. ABDOMEN: Soft, nontender and nondistended. NG bilious. There are no peritoneal signs or guarding. SKIN: Skin appears to be pink and feels warm to touch. NEUROLOGIC: Patient is awake, alert, and follows commands appropriately. Exam/Review of Systems Vital Signs Vitals Vital Signs Date Time Temp Pulse Resp B/P Pulse Ox O2 Delivery O2 Flow Rate FiO2 09/26/16 19:36 98.4 62 20 136/65 98 Intake and Output 09/26/16 09/26/16 09/27/16 15:00 23:00 07:00 Intake Total 300 ml 550 ml Balance 300 ml 550 ml Results Result Diagram: 09/26/16 0520 09/27/16 0510 JARRELL LAMBERT M.D. Sep 27, 2016 07:41
[2016-09-27 08:21] VITALS: BP 114/57; RESP 18
[2016-09-27] MEDS: ENOXAPARIN 30 MG/0.3 ML SYG SC SCH (08:49)
[2016-09-27] MEDS: LOSARTAN 50 MG TAB PO SCH (09:00)
[2016-09-27] MEDS ORDERED: LIDOCAINE 1% (MDV) 20 ML INJ SC ONE (15:00)
[2016-09-27 19:49] VITALS: BP 127/59; RESP 20
[2016-09-28] MEDS: ACCU-CHEK XX SCH ×4 (05:56→20:23)
[2016-09-28] MEDS: METOCLOPRAMIDE 10 MG INJ IV SCH ×3 (05:56→21:59)
[2016-09-28 06:22] LABS: POTASSIUM 4.2 mmol/L (3.5-5.1)
[2016-09-28 06:25] LABS: CREATININE 0.55 mg/dl (0.44-1.00)
[2016-09-28 06:26] LABS: CALCIUM 8.5 mg/dl (8.4-10.2); PHOSPHORUS 4.7 mg/dl (2.5-4.9)
[2016-09-28 07:41] VITALS: BP 131/63; RESP 20
[2016-09-28] MEDS: LOSARTAN 50 MG TAB PO SCH (07:54)
[2016-09-28] MEDS: TPN 1,000 ML IV SCH (07:55)
[2016-09-28] MEDS: ENOXAPARIN 30 MG/0.3 ML SYG SC SCH (08:04)
--- NOTE | 2016-09-28 11:31 | PN ---
Date/Time of Note Date/Time of Note DATE: 09/27/16 TIME: 09:28 Assessment/Plan VTE Prophylaxis VTE Prophylaxis Intervention: anti-embolic stocking Lines/Catheters IV Catheter Type (from Nrsg): Peripheral IV Urinary Cath still in place: No Assessment/Plan Assessment/Plan 1. CONT SBO 2. GASTRIC CA 3. ANEMIA 4. LOW ALB ---PER SURG ---PER ONC ---PICC LINE PLACE FOR LONG NEED OF IV LINE ---ADJUST TPN RATE TO 50CC/HR TILL PICC LINE IN PLACE & THEN INC TO 100CC/HR ---CONT ALL SUPPORTIVE CARES Subjective 24 Hr Interval Summary Free Text/Dictation NO COMPLAINTS Exam/Review of Systems Vital Signs Vitals Vital Signs Date Time Temp Pulse Resp B/P Pulse Ox O2 Delivery O2 Flow Rate FiO2 09/28/16 07:41 97.7 69 20 131/63 100 Intake and Output 09/27/16 09/27/16 09/28/16 14:59 22:59 06:59 Intake Total 450 ml 275 ml 500 ml Output Total 200 ml 50 ml Balance 450 ml 75 ml 450 ml Exam IN BED MOST OF THE TIME THIN CTA RR SYST M+ SLIGHT TENDER TO PALP MID ABD+ NO C/C/E Results Result Diagram: 09/26/16 0520 09/28/16 0536 Results 24 hrs Laboratory Tests Test 09/27/16 12:17 09/27/16 17:18 09/28/16 01:40 09/28/16 05:36 Bedside Glucose 100 87 99 Sodium Level 136 Potassium Level 4.2 Chloride Level 98 Carbon Dioxide Level 30 Anion Gap 12 Blood Urea Nitrogen 19 Creatinine 0.55 Glucose Level 97 Calcium Level 8.5 Phosphorus Level 4.7 Magnesium Level 2.0 Test 09/28/16 05:55 Bedside Glucose 89 Medications Medications Current Medications Enoxaparin Sodium (Lovenox) 30 mg DAILY SC Last administered on 09/28/16 08:04 ; Admin Dose 30 MG; Start 09/19/16 at 09:00 Ondansetron HCl (Zofran Inj) 4 mg Q4H PRN IV NAUSEA AND/OR VOMITING; Start at 04:00 Morphine Sulfate (morphine) 2 mg Q4H PRN IV PAIN Last administered on 14:14; Admin Dose 1 MG; Start 09/19/16 at 04:00 Losartan Potassium (Cozaar) 50 mg DAILY PO ; Start 09/19/16 at 09:00 Clonidine (Catapres) 0.1 mg TID PRN PO ELEVATED BLOOD PRESSURE; Start 09/19/16 at 04:00 Metoclopramide HCl 10 mg 10 mg Q8 IV Last administered on 09/28/16 05:56; Admin Dose 10 MG; Start 09/19/16 at 14:00 Potassium Chloride/Dextrose/ Sod Cl (D5-NS + KCl 20 Meq) 1,000 ml @ 100 mls/hr Q10H IV Last administered on 09/25/16 16:52; Admin Dose 100 MLS/HR; Start at 17:30; Status Future Hold Phenol (Cepastat Lozenge) 1 lozenge Q1H PRN MT sorethroat; Start 09/23/16 at 17 :30 Diagnostic Test (Pha) 1 ea 1 ea Q6 XX ; Start 09/27/16 at 06:00 Total Parenteral Nutrition (Tpn) 1,000 ml @ 50 mls/hr Q20H IV Last administered on 09/28/16 07:55; Admin Dose 50 MLS/HR; Start 09/27/16 at 13:00 ARI GARCIA MD Sep 28, 2016 11:31
[2016-09-28 20:21] LABS: POTASSIUM 4.3 mmol/L (3.5-5.1)
[2016-09-28 20:23] LABS: CREATININE 0.53 mg/dl (0.44-1.00)
[2016-09-28 20:24] LABS: CALCIUM 8.5 mg/dl (8.4-10.2)
[2016-09-28 21:20] VITALS: BP 130/60; RESP 19
--- NOTE | 2016-09-28 22:16 | PN ---
Date/Time of Note Date/Time of Note DATE: 09/28/16 TIME: 22:12 Assessment/Plan Lines/Catheters IV Catheter Type (from Nrs): Peripheral IV Layton in Place (from Nrs): No Assessment/Plan Assessment/Plan [facility] Progress Note Date of Service: 09/28/16 Today's Impression & Plan: Overall stable. SBO still ongoing without showing sig bowel activity. No indication for acute surgical intervention today. On the schedule for exploration on Tue am. With above assessment, I've recommended the following for today: 1. Cont current cares 2. Cont NG to LIS 3. Cont NPO status 4. Keep inhouse 5. Continue PICC line and TPN 6. To OR on Tue for laparoscopic, possible open, exploration, possible bowel resection, possible ostomy Thank you again for your great care of this very pleasant patient and wonderful family. If there are any questions, please feel free to call me at [phone]. TOTAL VISIT TIME: 20 minutes of which more than half was spent in [id number] discussion with the patient, possibly including family, as well as coordination of care between multiple physicians and providers. Disclaimer: Inadvertent spelling or grammatical errors are likely due to EHR/ dictation software use and do not reflect on the overall quality of patient care. Updated Clinical Summary: The patient is a very pleasant but unfortunate 66-year-old lady with history of stage III stomach malignancy, status post resection followed by systemic chemotherapy as well as radiation at [facility], who presented to [facility] with bowel obstruction symptoms and CT findings on 2016 showing evidence for distal small-bowel obstruction with transition in the lower pelvis at the level of either a focal mass or a focally thickened distal small bowel wall. There was evidence of gastrectomy and partial gastrectomy with wall thickening of the gastric remnant or reconstructed pouch. Free fluid was seen throughout the abdomen and pelvis and a well-distended gallbladder without evidence of biliary dilatation was seen. Uterus was absent consistent with the patient's prior hysterectomy and she also had appendectomy in the past. COMORBIDITIES: 1. Gastric cancer stage III ([id number]) lymph nodes positive; + LVI; + PNI; initially s/p diagnostic laparoscopy with peritoneal washings at [facility] (Dr. Nisreen Baker) with thought of ruling out metastatic disease (which was not present) and neoadjuvant therapy, but patient represented with symptoms enough that Dr. Baker did not believe patient could tolerate neoadjuvant approach and therefore took her back on 11/19/15 and performed a subtotal gastrectomy with D2 lymphadenectomy. S/p systemic chemotherapy (FOLFOX completed 4 cycles 02/06/16) as well as radiation therapy with concurrent continuous infusional 5-FU 03/03/16, with patient reporting most recent CT scan showing a mass near the area of the resection and plan for followup CT in September prior to being admitted to [facility] with the above symptoms. 2. Previous hysterectomy with oophorectomy 3. Previous appendectomy. 4. Degenerative changes of lumbar spine. 5. Atherosclerotic vascular calcifications. 6. Simple cyst of lower pole of right kidney. 7. Peptic ulcer disease. 8. Reported history of inflammatory bowel syndrome. 9. History of dumping syndrome after gastrectomy. 10. Anxiety 11. HTN 12. Osteoarthritis 13. History of vertigo 14. Sister with breast cancer (dx at age 45; at age 50); mother in [address] [facility] from pancreatic disease at age 46 (? cancer); maternal grandmother uterine cancer in her 70's; maternal uncle with ? oral ulcer disease (? malignancy) 15. Former smoker (quit 15-20 yrs ago) Subjective: No major events or complaints; no abd pain and under control with medications; no n/v/d; no sob or cp; - flatus; - BM; + activity Objective: Vitals: See below Exam: GENERAL: On exam, the patient was laying in bed and appeared to be comfortable and in no acute distress. ABDOMEN: Soft, nontender and nondistended. NG bilious. There are no peritoneal signs or guarding. SKIN: Skin appears to be pink and feels warm to touch. NEUROLOGIC: Patient is awake, alert, and follows commands appropriately. Exam/Review of Systems Vital Signs Vitals Vital Signs Date Time Temp Pulse Resp B/P Pulse Ox O2 Delivery O2 Flow Rate FiO2 09/28/16 21:20 99.1 67 19 130/60 97 Intake and Output 09/27/16 09/27/16 09/28/16 15:00 23:00 07:00 Intake Total 450 ml 275 ml 500 ml Output Total 200 ml 50 ml Balance 450 ml 75 ml 450 ml Results Result Diagram: 09/26/16 0520 09/28/162004 JARRELL LAMBERT M.D. Sep 28, 2016 22:16
--- NOTE | 2016-09-28 22:29 | PN ---
DATE: 09/28/2016 SUBJECTIVE: The patient awake, alert. Reports no flatulence or bowel movements. OBJECTIVE: VITAL SIGNS: Temperature 97.7, blood pressure 131/63, pulse of 69, respiration rate 20, O2 saturati on 100% on room air. HEENT: Pupils equally round, reactive to light. Left nasogastric tube in place. Oropharynx clear. LUNGS: Clear to auscultation. CARDIAC: Regular rate and rhythm. Normal S1, S2. No murmurs or rubs or gallops. ABDOMEN: Hypoactive bowel sounds. Soft, nondistended. Minimal left lower quadrant tenderness. EXTREMITIES: No clubbing, cyanosis, or edema. ASSESSMENT AND PLAN: 1. Small-bowel obstruction. Anticipate exploratory laparotomy tomorrow. Continue n.p.o. with naso gastric suction for now. 2. Malnutrition. The patient is on TPN and will require a deep line since her peripheral lines are very small. Will order for PICC line placement. 3. Stomach cancer. Await exploratory laparotomy to see if there are obvious metastases or not. Dictated By: KOBY FRANCO MD DP/NTS Conf#: [id number] DID#: [id number] CC: NÉSTOR CUMMINS MD;*EndCC*
[2016-09-29] VITALS (18 sets, daily range): BP systolic 105–162; BP diastolic 57–81; PULSE 84–113; RESP 16–22
[2016-09-29] MEDS: TPN 1,000 ML IV SCH (05:14)
[2016-09-29] MEDS: METOCLOPRAMIDE 10 MG INJ IV SCH ×3 (05:14→22:15)
[2016-09-29 06:22] LABS: ADD SCAN DIFF NO
[2016-09-29 06:37] LABS: BASOPHILS % 0.7 % (0.0-2.0); EOSINOPHILS % 0.4 % (0.0-7.0); HEMATOCRIT 34.9 % (37.0-47.0); HEMOGLOBIN 11.3 g/dl (12.0-16.0); LYMPHOCYTES % 35.5 % (15.0-51.0); MEAN CORPUSCULAR HEMOGLOBIN 28.7 pg (29.0-33.0); MEAN CORPUSCULAR HGB CONC 32.4 g/dl (32.0-37.0); MEAN CORPUSCULAR VOLUME 88.6 fl (82.0-101.0); MEAN PLATELET VOLUME 9.1 fl (7.4-10.4); MONOCYTE # 0.7 10^3/ul (0.3-0.9); MONOCYTES % 11.8 % (0.0-11.0); NEUTROPHIL # 2.9 10^3/ul (1.6-7.5); NEUTROPHILS % 51.4 % (39.0-77.0); PLATELET COUNT 319 10^3/UL (140-415); RED BLOOD COUNT 3.94 10^6/ul (4.20-5.40); RED CELL DISTRIBUTION WIDTH 13.7 % (11.5-14.5); WHITE BLOOD COUNT 5.6 10^3/ul (4.8-10.8)
[2016-09-29] MEDS ORDERED: BUPIVACAINE 0.5%/EPI (SDV) 30 ML INJ ONE (06:58)
[2016-09-29] MEDS ORDERED: SUCCINYLCHOLINE CHLORIDE 100 MG/5 ML SYG IV ONE (07:00)
[2016-09-29] MEDS ORDERED: EPHEDrine SULFATE 50 MG/5 ML SYG ONE (07:00)
[2016-09-29] MEDS ORDERED: CEFAZOLIN 1 GM INJ ONE (07:00)
[2016-09-29] MEDS ORDERED: ROCURONIUM 50 MG INJ ONE (07:00)
--- NOTE | 2016-09-29 07:11 | HPN ---
Date/Time of Note Date/Time of Note DATE: 09/29/16 TIME: 07:11 Interval H&P Admission Note Pt. seen H&P reviewed: No system changes Pt. seen H&P reviewed. No system changes (I attest that I have seen and examined the patient and reviewed the operation in detail, as well as its risks , benefits and alternatives of the operation). I attest that I have seen and examined the patient and reviewed in detail the operation, and its associated risks, benefits and alternative. I have answered all the patient's questions to the best of my ability and the patient wishes to proceed. Please refer to rest of electronic medical record for additional updates. JARRELL LAMBERT M.D. Sep 29, 2016 07:11
[2016-09-29] MEDS ORDERED: FENTAnyl 50 MCG/ML VIAL ONE (07:31)
[2016-09-29] MEDS ORDERED: PHENYLephrine (100 MCG/ML) 5ML SYG ONE (07:58)
[2016-09-29] MEDS ORDERED: MEPERIDINE 25 MG INJ IV PRN (09:00)
[2016-09-29] MEDS: ACCU-CHEK XX SCH ×2 (09:00→20:43)
[2016-09-29] MEDS ORDERED: FENTAnyl 50 MCG/ML VIAL IV PRN (09:00)
[2016-09-29] MEDS ORDERED: ONDANSETRON 4 MG INJ IV PRN (09:00)
[2016-09-29] MEDS: ENOXAPARIN 30 MG/0.3 ML SYG SC SCH (09:00)
[2016-09-29] MEDS ORDERED: HYDROmorphONE (0.2 MG/ML) 10ML SYG IV PRN (09:00)
[2016-09-29] MEDS: LOSARTAN 50 MG TAB PO SCH (09:00)
[2016-09-29] MEDS ORDERED: LIDOCAINE 2% (SDV) 5 ML INJ ONE (10:10)
[2016-09-29] MEDS ORDERED: ROPIVACAINE 0.5 % 30 ML VIAL ONE (10:10)
[2016-09-29] MEDS ORDERED: GLYCOPYRROLATE 0.4 MG INJ ONE (10:10)
[2016-09-29] MEDS ORDERED: PROPOFOL 20 ML ONE (10:10)
[2016-09-29] MEDS ORDERED: NEOSTIGMINE 3 MG/3 ML SYRINGE ONE (10:10)
[2016-09-29] MEDS: HYDROmorphONE (0.2 MG/ML) 10ML SYG IV PRN ×2 (10:40→10:45)
--- NOTE | 2016-09-29 10:57 | OPR ---
Date/Time of Note Date/Time of Note DATE: 09/29/16 TIME: 10:56 Operative Report Operative\\Procedure Findings [facility] INPATIENT O[facility]IVE [facility] [place] [facility] [place]GERY: 09/29/2016 PREOPERATIVE DIAGNOSIS: 1. Complete bowel obstruction 2. Gastric cancer stage III ([id number]) lymph nodes positive; + LVI; + PNI; initially s/p diagnostic laparoscopy with peritoneal washings at [facility] (Dr. Nisreen Baker) with thought of ruling out metastatic disease (which was not present) and neoadjuvant therapy, but patient represented with symptoms enough that Dr. Baker did not believe patient could tolerate neoadjuvant approach and therefore took her back on 11/19/15 and performed a subtotal gastrectomy with D2 lymphadenectomy. S/p systemic chemotherapy (FOLFOX completed 4 cycles 02/06/16) as well as radiation therapy with concurrent continuous infusional 5-FU 03/03/16, with patient reporting most recent CT scan showing a mass near the area of the resection and plan for followup CT in September prior to [place] [facility] above symptoms. 3. Previous hysterectomy with oophorectomy 4. Previous appendectomy. 5. Degenerative changes of lumbar spine. 6. Atherosclerotic vascular calcifications. 7. Simple cyst of lower pole of right kidney. 8. Peptic ulcer disease. 9. Reported history of inflammatory bowel syndrome. 10. Anxiety 11. HTN 12. Osteoarthritis 13. History of vertigo 14. Sister with breast cancer (dx at age 45; at age 50); mother in 1972 in the [facility] from pancreatic disease at age 46 (? cancer); maternal grandmother uterine cancer in her 70's; maternal uncle with ? oral ulcer disease (? malignancy) 15. Former smoker (quit 15-20 yrs ago) 16. History of dumping syndrome after gastrectomy. POSTOPERATIVE DIAGNOSIS: 1. Complete ( malignant) bowel obstruction from stage IV gastric cancer spread 2. Gastric cancer stage III ([id number]) lymph nodes positive; + LVI; + PNI; initially s/p diagnostic laparoscopy with peritoneal washings at [facility] (Dr. Nisreen Baker) with thought of ruling out metastatic disease (which was not present) and neoadjuvant therapy, but patient represented with symptoms enough that Dr. Baker did not believe patient could tolerate neoadjuvant approach and therefore took her back on 11/19/15 and performed a subtotal gastrectomy with D2 lymphadenectomy. S/p systemic chemotherapy (FOLFOX completed 4 cycles 02/06/16) as well as radiation therapy with concurrent continuous infusional 5-FU 03/03/16, with patient reporting most recent CT scan showing a mass near the area of the resection and plan for followup CT in September prior to [place] [facility] [place] the above symptoms. 3. Previous hysterectomy with oophorectomy 4. Previous appendectomy. 5. Degenerative changes of lumbar spine. 6. Atherosclerotic vascular calcifications. 7. Simple cyst of lower pole of right kidney. 8. Peptic ulcer disease. 9. Reported history of inflammatory bowel syndrome. 10. Anxiety 11. HTN 12. Osteoarthritis 13. History of vertigo 14. Sister with breast cancer (dx at age 45; at age 50); mother in 1972 in the [facility] from pancreatic disease at age 46 (? cancer); maternal grandmother uterine cancer in her 70's; maternal uncle with ? oral ulcer disease (? malignancy) 15. Former smoker (quit 15-20 yrs ago) 16. History of dumping syndrome after gastrectomy. OPERATION: 1. Laparoscopic, converted to open exploration with lysis of adhesions and performance of palliative diverting loop ileostomy 2. Abdominal lavage SURGEON: Jarrell Lambert M.D. DUST COLLECTOR TREATER: TASHI Jane ANESTHESIA: General endotracheal tube anesthesia ANESTHESIOLOGIST: Anjel Garcia M.D. BRIEF SUMMARY: An otherwise uncomplicated laparoscopic, converted to open exploration with lysis of adhesions and performance of palliative diverting loop ileostomy. Updated Clinical Summary: The patient is a very pleasant but unfortunate 66-year-old lady with history of stage III stomach malignancy, status post resection followed by systemic chemotherapy as well as radiation at [facility], who [place] [facility] bowel obstruction symptoms and CT findings on 2016 showing evidence for distal small-bowel obstruction with transition in the lower pelvis at the level of either a focal mass or a focally thickened distal small bowel wall. There was evidence of gastrectomy and partial gastrectomy with wall thickening of the gastric remnant or reconstructed pouch. Free fluid was seen throughout the abdomen and pelvis and a well-distended gallbladder without evidence of biliary dilatation was seen. Uterus was absent consistent with the patient's prior hysterectomy and she also had appendectomy in the past. COMORBIDITIES: 1. Gastric cancer stage III ([id number]) lymph nodes positive; + LVI; + PNI; initially s/p diagnostic laparoscopy with peritoneal washings at [facility] (Dr. Nisreen Baker) with thought of ruling out metastatic disease (which was not present) and neoadjuvant therapy, but patient represented with symptoms enough that Dr. Baker did not believe patient could tolerate neoadjuvant approach and therefore took her back on 11/19/15 and performed a subtotal gastrectomy with D2 lymphadenectomy. S/p systemic chemotherapy (FOLFOX completed 4 cycles 02/06/16) as well as radiation therapy with concurrent continuous infusional 5-FU 03/03/16, with patient reporting most recent CT scan showing a mass near the area of the resection and plan for followup CT in September prior to [place] [facility] [place] above symptoms. 2. Previous hysterectomy with oophorectomy 3. Previous appendectomy. 4. Degenerative changes of lumbar spine. 5. Atherosclerotic vascular calcifications. 6. Simple cyst of lower pole of right kidney. 7. Peptic ulcer disease. 8. Reported history of inflammatory bowel syndrome. 9. History of dumping syndrome after gastrectomy. 10. Anxiety 11. HTN 12. Osteoarthritis 13. History of vertigo 14. Sister with breast cancer (dx at age 45; at age 50); mother in 1972 in the [facility] from pancreatic disease at age 46 (? cancer); maternal grandmother uterine cancer in her 70's; maternal uncle with ? oral ulcer disease (? malignancy) 15. Former smoker (quit 15-20 yrs ago) BRIEF HISTORY: The patient is a very pleasant 66-year-old lady with above- mentioned history who presented with bowel obstruction that did not resolve on its own with nonoperative management. After a number of days with bowel rest and NG decompression, it became clear that the patient needed surgical exploration and potential bowel resection, bypass, ostomy, or other needed procedures. Our suspicion was that this was due to her gastric cancer history, but it could have also possibly been due to adhesive disease since she had previous pelvic operations in the past. Our hope was that we could potentially reverse this process and allow the patient to eat. I met with the patient and family and counseled them regarding the possible options of treatment, and we reviewed the operation in detail as well as the risks, benefits, alternatives, and expected outcomes of this operation. After careful consideration of all the risks, benefits, and alternatives, the patient and family appeared to understand those risks and wished to proceed with surgery. For a detailed report of my consultation with patient and family, please refer to my separate consultation note. STATEMENT OF THE INFORMED CONSENT: The patient and family appeared to understand the risks of the operation to include, but not be limited to risk of postoperative pain and scar tissue, possible infection or bleeding requiring other interventions such as opening the wound, placement of drainage catheters, or other operative interventions; possible injury to surrounding to structures including bowel, bladder, bile duct, or blood vessels, or solid organs such as liver, kidney, or pancreas requiring other interventions or procedures; possible leakage of bowel contents from staple lines, suture lines, or worse, from perforation, causing significant increase in morbidity and mortality and requiring multiple interventions including but not limited to, placement of drainage catheters, imaging studies, as well as operative interventions; possible other source of sepsis such as urinary tract infections or pneumonias, or other sources of potentially life threatening problems such as deep venous thrombus formation causing pulmonary embolism, myocardial arrhythmias and infarctions, and even . After careful consideration of all their options, the patient and family appeared to understand and wished to proceed with surgery. DESCRIPTION OF PROCEDURE: After obtaining informed consent, the patient was brought into the operating room and was placed in a normal supine position, where successful general endotracheal tube anesthesia was performed. The patient 's abdominal skin was prepped and draped, from the nipple line down to the level of the groins, in the usual sterile fashion. Intravenous access was already in place, and appropriately chosen and dosed prophylactic intravenous antimicrobials were administered. We then called a surgical time-out where patient's identification, date of , nature of the operation, allergies, presence of intravenous antimicrobials, presence of needed equipment, and any other concerns were reviewed and agreed upon by all members of the operating room team. We then started the operation by placing a 5-mm skin incision in the left lower quadrant and introduced a 5-mm [employer] trocar into the peritoneal space , visualizing all the layers of the abdominal wall as we entered. Note that there was no indication of any injury to underlying structures once we entered the peritoneum. We insufflated the abdominal cavity to a maximum pressure of 15 mmHg, again, confirmed lack of any injury to underlying structures prior to visualizing the rest of the abdominal cavity. We found dilated loops of small intestine with adhesion of bowel onto the midline as well as other places in the abdominal cavity. There was also significant amount of what appeared to be metastatic malignant disease throughout the serosal surface as well as the bowel surface that was visible. We attempted to keep the incision to a minimum and placed a 9 cm skin incision in the suprapubic midline area utilizing the previous scar that the patient had to place a GelPort device and attempt to continue with the operation using hand- assisted laparoscopic technique. We did have to do lysis of adhesions to take down some of the loops of bowel that were adherent onto the midline. We accomplished this using judicious use of cautery as well as very careful dissection with scissors. Once we had adequate room, we deployed the GelPort device and explored the abdominal cavity using this technique. This proved to be very difficult given lack of visualization as well as significant adhesion of the small intestine into the pelvis. It became very obvious quickly that in order to continue with the operation we had to extend the incision, which we did after removal of the GelPort and used scalpel again to go just above the umbilicus, and then used cautery to go through the fascia all the while doing appropriate adhesio lysis in order to free up the bowel from underneath the fascia using similar technique as mentioned above. Once we had adequate exposure to the abdominal cavity we were able to run the bowel from ligament of Treitz down to the area where the bowel seemed to go into a "frozen "pelvis. I did have to do more adhesio lysis to free up a loop of bowel that was densely adherent onto the upper midline region. There was one area of small intestine close to the area where the small intestine was disappearing into the pelvis that appeared to have a partial narrowing of the lumen with malignant process. To help delineate the pathology, I sent samples from the mesenteric surface containing white plaques in pieces (3) to pathology for permanent sections. Note that there was no doubt that this was due to malignant process and unfortunately the patient did not appear to have any way that aggressive surgical intervention would improve the clinical picture. With this decision-making, I created a defect in the left quadrant slightly below the umbilicus in the mid rectus region using standard technique by taking of an oval portion of skin followed by taking the cylinder of subcutaneous fat using cautery and then creating a large enough defect using muscle-splitting technique in the middle of the rectus muscle to be able to put 3 fingers through. We then chose a suitable spot in the most distal portion of the free small intestine and brought this up as a loop through this defect prior to washing the abdominal cavity with copious amounts of normal saline, reapproximating the fascia using interrupted #1 PDS suture in [id number] fashion, and then washing the wounds with copious amounts of normal saline and closing the skin defect using skin jim. We then performed a palliative loop diverting ileostomy in a Taveras fashion. Briefly, we made an enterotomy using cautery and the antimesenteric border of the small intestine and then matured the edges onto the skin edge using interrupted 3-0 Vicryl suture. This came together very nicely. We then fashioned a colostomy bag over this area. Light dressing was then applied. At the end of the operation, both the sponge count and needle count were reportedly correct x2. The patient tolerated the procedure without any reported complications. ESTIMATED BLOOD LOSS: Less than 30 mL. BLOOD OR BLOOD PRODUCT TRANSFUSIONS: None to my knowledge. SPECIMENS: 1. Surface of mesentery lesions COMPLICATIONS: None. DISPOSITION: Recovery area. Disclaimer: Inadvertent spelling and grammatical errors are likely due to EHR/ dictation software use and do not reflect on the quality of delivered patient care. JARRELL LAMBERT M.D. Sep 29, 2016 10:57
[2016-09-29] MEDS ORDERED: BISACODYL 10 MG SUPP PR PRN (11:00)
[2016-09-29] MEDS ORDERED: DOCUSATE SODIUM 100 MG CAP PO PRN (11:00)
[2016-09-29] MEDS ORDERED: NA PHOSPHATE/BIPHOS 133 ML ENEMA PR PRN (11:00)
[2016-09-29] MEDS ORDERED: HYDROmorphONE 1 MG/ML SYG IV PRN (11:00)
[2016-09-29] MEDS ORDERED: HYDROCODONE/APAP (5/325) TAB PO PRN (11:00)
[2016-09-29] MEDS: HYDROmorphONE 1 MG/ML SYG IV PRN ×2 (14:52→22:15)
--- NOTE | 2016-09-29 20:59 | PN ---
DATE: 09/29/2016 SUBJECTIVE: The patient status post surgery, is awake and alert, complains of mild dizziness with h ead movements. OBJECTIVE: Temperature 98.0, blood pressure 105/57, pulse of 113, respiratory rate 19, O2 saturatio n 98% on room air. LABORATORY DATA: WBC 5.6, hemoglobin 11.3, hematocrit 34.9, platelet count 319,000. Sodium 133, po tassium 4.3, chloride 98, carbon dioxide 30, BUN 20, creatinine 0.53, glucose 97. ASSESSMENT AND PLAN: 1. Small bowel adhesion, status post surgical laparoscopic, then open exploratory laparotomy with l ysis of adhesions and performance of palliative diverting loop ileostomy. Discussed with the patien t and family regarding severity of the gastric cancer spread in her intestine and abdomen. The plan is to advance diet as tolerated, and once patient is able to tolerate oral intake, will discharge t o home for followup with [facility] oncologist. Of note is that the patient had expressed a wish to be buried in the [facility], so the family is requesting that we stabilize and strengthen her en ough to allow her to fly back to the [facility] once no further chemotherapeutic or radiation optio ns are available anymore for patient. 2. Dizziness. Might be labyrinthitis or anesthesia reaction. Will give patient Antivert as needed for the dizziness. 3. Malnutrition. Continue TPN until patient able to tolerate a full diet. Dictated By: KOBY FRANCO MD DP/NTS Conf#: [id number] DID#: [id number]
[2016-09-30] MEDS: TPN 1,000 ML IV SCH ×3 (01:33→22:43)
[2016-09-30 05:42] LABS: ADD SCAN DIFF NO
[2016-09-30 05:46] LABS: BASOPHILS % 0.1 % (0.0-2.0); HEMATOCRIT 30.9 % (37.0-47.0); HEMOGLOBIN 10.2 g/dl (12.0-16.0); LYMPHOCYTES # 1.1 10^3/ul (0.8-2.9); LYMPHOCYTES % 9.6 % (15.0-51.0); MEAN CORPUSCULAR HEMOGLOBIN 28.8 pg (29.0-33.0); MEAN CORPUSCULAR VOLUME 87.3 fl (82.0-101.0); MEAN PLATELET VOLUME 9.8 fl (7.4-10.4); MONOCYTES % 8.6 % (0.0-11.0); NEUTROPHIL # 9.7 10^3/ul (1.6-7.5); NEUTROPHILS % 81.4 % (39.0-77.0); PLATELET COUNT 276 10^3/UL (140-415); RED BLOOD COUNT 3.54 10^6/ul (4.20-5.40); RED CELL DISTRIBUTION WIDTH 13.8 % (11.5-14.5); WHITE BLOOD COUNT 11.9 10^3/ul (4.8-10.8)
[2016-09-30] MEDS: METOCLOPRAMIDE 10 MG INJ IV SCH ×3 (06:01→21:34)
[2016-09-30 06:06] LABS: INR 1.23; PROTIME 15.6 Sec (12.2-14.2); PT RATIO 1.2
[2016-09-30 06:07] LABS: PARTIAL THROMBOPLASTIN TIME 34.7 Sec (25.0-35.0)
[2016-09-30 06:30] LABS: ALBUMIN 2.4 g/dl (3.3-4.9); POTASSIUM 5.2 mmol/L (3.5-5.1)
[2016-09-30 06:32] LABS: CREATININE 0.84 mg/dl (0.44-1.00)
[2016-09-30 06:33] LABS: ALBUMIN/GLOBULIN RATIO 0.85; BILIRUBIN,INDIRECT 0.4 mg/dl (0-1.1); BILIRUBIN,TOTAL 0.4 mg/dl (0.2-1.3); CALCIUM 8.2 mg/dl (8.4-10.2); TOTAL PROTEIN 5.2 g/dl (6.1-8.1)
[2016-09-30 06:57] LABS: MAGNESIUM 1.9 mg/dl (1.7-2.5); PHOSPHORUS 3.9 mg/dl (2.5-4.9)
[2016-09-30 07:55] VITALS: BP 112/55; RESP 16
[2016-09-30] MEDS: LOSARTAN 50 MG TAB PO SCH (08:28)
[2016-09-30] MEDS: HYDROmorphONE 1 MG/ML SYG IV PRN ×2 (08:32→22:43)
[2016-09-30] MEDS: ENOXAPARIN 40 MG/0.4 ML SYG SC SCH (08:59)
[2016-09-30] MEDS: ACCU-CHEK XX SCH ×2 (08:59→21:34)
--- NOTE | 2016-09-30 13:25 | CONS ---
Date/Time of Note Date/Time of Note DATE: 09/30/16 TIME: 13:20 Consultation Date/Type/Reason Admit Date/Time Sep 19, 2016 at 01:29 Initial Consult Date 09/30/16 Type of Consultation: Anesthesiology Reason for Consultation Anesthesia Follow-up 24 HR Interval Summary Free Text/Dictation Pt seen and examined at bedside is POD#1 for Exploratory Laparotomy with palliative ileostomy. Pt states she is doing well and has minimal pain or discomfort. She has started eating and has no complaints of N/V/D/MENSAH. Will follow up in future. Thank you. Constitutional: improved, no complaints Exam/Review of Systems Vital Signs Vitals Vital Signs Date Time Temp Pulse Resp B/P Pulse Ox O2 Delivery O2 Flow Rate FiO2 09/30/16 07:55 98.9 100 16 112/55 96 09/29/16 17:25 Room Air Intake and Output 09/29/16 09/29/16 09/30/16 15:00 23:00 07:00 Intake Total 1400 ml 450 ml 750 ml Output Total 70 ml 440 ml Balance 1330 ml 450 ml 310 ml Results Result Diagram: 09/30/16 0500 09/30/16 0500 Results 24 hrs Laboratory Tests Test 09/29/16 17:22 09/29/16 20:42 09/30/16 05:00 09/30/16 08:54 Bedside Glucose 180 146 126 White Blood Count 11.9 #H Red Blood Count 3.54 L Hemoglobin 10.2 L Hematocrit 30.9 L Mean Corpuscular Volume 87.3 Mean Corpuscular Hemoglobin 28.8 L Mean Corpuscular Hemoglobin Concent 33.0 Red Cell Distribution Width 13.8 Platelet Count 276 Mean Platelet Volume 9.8 Neutrophils % 81.4 H Lymphocytes % 9.6 L Monocytes % 8.6 Eosinophils % 0.0 Basophils % 0.1 Nucleated Red Blood Cells % 0.0 Neutrophils # 9.7 H Lymphocytes # 1.1 Monocytes # 1.0 H Eosinophils # 0.0 Basophils # 0.0 Nucleated Red Blood Cells # 0.0 Prothrombin Time 15.6 H Prothrombin Time Ratio 1.2 INR International Normalized Ratio 1.23 Activated Partial Thromboplast Time 34.7 Sodium Level 133 L Potassium Level 5.2 H Chloride Level 100 Carbon Dioxide Level 23 Anion Gap 15 Blood Urea Nitrogen 38 #H Creatinine 0.84 Glucose Level 131 Lactic Acid Level 1.2 Calcium Level 8.2 L Phosphorus Level 3.9 Magnesium Level 1.9 Total Bilirubin 0.4 Direct Bilirubin 0.00 Indirect Bilirubin 0.4 Aspartate Amino Transf (AST/SGOT) 26 Alanine Aminotransferase (ALT/SGPT) 17 Alkaline Phosphatase 70 B-Type Natriuretic Peptide 125 Total Protein 5.2 L Albumin 2.4 L Globulin 2.80 Albumin/Globulin Ratio 0.85 Medications Medications Current Medications Ondansetron HCl (Zofran Inj) 4 mg Q4H PRN IV NAUSEA AND/OR VOMITING; Start at 04:00 Morphine Sulfate (morphine) 2 mg Q4H PRN IV PAIN Last administered on 14:14; Admin Dose 1 MG; Start 09/19/16 at 04:00 Losartan Potassium (Cozaar) 50 mg DAILY PO ; Start 09/19/16 at 09:00 Clonidine (Catapres) 0.1 mg TID PRN PO ELEVATED BLOOD PRESSURE; Start 09/19/16 at 04:00 Metoclopramide HCl 10 mg 10 mg Q8 IV Last administered on 09/30/16 06:01; Admin Dose 10 MG; Start 09/19/16 at 14:00 Potassium Chloride/Dextrose/ Sod Cl (D5-NS + KCl 20 Meq) 1,000 ml @ 100 mls/hr Q10H IV Last administered on 09/25/16 16:52; Admin Dose 100 MLS/HR; Start at 17:30; Status Future Hold Phenol 1 lozenge 1 lozenge Q1H PRN MT sorethroat; Start 09/23/16 at 17:30 Total Parenteral Nutrition (Tpn) 1,000 ml @ 50 mls/hr Q20H IV Last administered on 09/30/16 01:33; Admin Dose 50 MLS/HR; Start 09/27/16 at 13:00 Diagnostic Test (Pha) (Accu-Chek) 1 ea Q12 XX Last administered on 09/29/16 20: 43; Admin Dose 1 EA; Start 09/28/16 at 21:00 Acetaminophen/ Hydrocodone Bitart ([place] (5/325)) 1 tab Q4H PRN PO PAIN LEVEL 4 -7; Start 09/29/16 at 11:00 Acetaminophen/ Hydrocodone Bitart ([place] (5/325)) 2 tab Q4H PRN PO PAIN LEVEL 7 -10; Start 09/29/16 at 11:00 Hydromorphone HCl (Dilaudid) 0.5 mg Q2H PRN IV PAIN; Start 09/29/16 at 11:00 Hydromorphone HCl (Dilaudid) 1 mg Q2H PRN IV PAIN Last administered on 08:32; Admin Dose 1 MG; Start 09/29/16 at 11:00 Docusate Sodium (Colace) 100 mg BID PRN PO CONSTIPATION; Start 09/29/16 at 11:00 Bisacodyl (Dulcolax Supp) 10 mg BID PRN [place] CONSTIPATION; Start 09/29/16 at 11:00 Sodium Biphosphate/ Sodium Phosphate (Fleet Enema) 133 ml BID PRN [place] CONSTIPATION; Start 09/29/16 at 11:00 Enoxaparin Sodium (Lovenox) 40 mg DAILY SC Last administered on 09/30/16 08:59 ; Admin Dose 40 MG; Start 09/30/16 at 09:00 ADRIANO GTZ Sep 30, 2016 13:24
--- NOTE | 2016-09-30 16:14 | RADRPT ---
PROCEDURE: Ultrasound guidance for placement of needle in left upper extremity vein. CLINICAL INDICATION: Venous access. TECHNIQUE: Limited sonography of the left upper extremity was performed. Ultrasound images were recorded and s tored in the patient's medical record. COMPARISON: None. FINDINGS: The ultrasound images demonstrate a patent left upper extremity vein. The PICC line was inserted by the PICC line nurse. IMPRESSION: 1. Ultrasound guidance for a needle placement in a left upper extremity vein. 2. The left upper extremity vein is patent. RPTAT: QQ .Roberto Carrizales MD, MD Date Time Electronically viewed and signed by .Roberto Carrizales MD, MD on 09/30/2016 16:13 .R/
--- NOTE | 2016-09-30 16:39 | RADRPT ---
PROCEDURE: XR Chest. CLINICAL INDICATION: Check PICC line position. TECHNIQUE: Single frontal view. COMPARISON: 09/19/2016. FINDINGS: There is a left arm PICC line with the tip in the lower superior vena cava. The right internal jugu lar vein implanted port central venous catheter remains in satisfactory position with the tip in the lower superior vena cava. Previously noted nasogastric tube has been removed.. There is mild left basilar atelectasis. The lungs are otherwise clear. The heart size is normal. There is calcification in the aorta consistent with atherosclerosis. There is no pleural effusion. There is no pneumothorax. IMPRESSION: 1. Satisfactory position of left arm PICC line. 2. Nasogastric tube removed. 3. Right IJ catheter in satisfactory position. 4. Atherosclerosis. 5. Mild left basilar atelectasis. RPTAT: QQ .Roberto Carrizales MD, Date Time Electronically viewed and signed by .Roberto Carrizales MD, on 09/30/2016 16:39 .R/
[2016-09-30] MEDS ORDERED: SOD CHLORIDE 0.9% 100 ML ONE (16:50)
--- NOTE | 2016-09-30 18:53 | PN ---
DATE: 09/30/2016 SUBJECTIVE: Patient reports that she was able to tolerate a liquid diet today without nausea. She reports that before when she tried to take Ensure and Boost supplement she got diarrhea. OBJECTIVE VITAL SIGNS: Temperature 98.9, blood pressure 112/55, pulse 100, respiration rate 16, O2 saturation 96% on room air. HEENT: Pupils equally round, reactive to light. Oropharynx clear. CHEST: Lungs are clear to auscultation. CARDIAC: Regular rate and rhythm, normal S1, S2. ABDOMEN: Active bowel sounds. Ileostomy: The back has a small amount of liquid excrement. EXTREMITIES: No edema. LABORATORY DATA: WBC 11.9, hemoglobin 10.2, hematocrit 30.9, platelet count 276,000. Sodium 133, p otassium 5.2, BUN 38, creatinine 0.84, glucose 131. Calcium is still low at 8.2. The total protein is low at 5.2, albumin is low at 2.4. The rest of the liver enzymes are within normal limits. ASSESSMENT AND PLAN: 1. Small-bowel obstruction status post palliative ileostomy. Will advance diet to a full diet as t olerated today. Patient did develop severe malnutrition during the past several weeks. The plan is to ask for physical therapy evaluation and assess her weakness, deconditioning to see if patient is able to be discharged to home in the next day or 2. 2. Severe protein calorie malnutrition. The patient had gradual onset of malnutrition over the pas t several weeks due to the small-bowel obstruction. Now that she has ileostomy, the absorption will also be impacted and she may not be able to tolerate certain foods and supplements as well as befor e. We will ask for a dietary consult to help patient address this problem in the outpatient setting since we are anticipating discharging her soon. 3. Stomach cancer stage III. We will arrange for outpatient followup with [facility] oncologist to see if there are any other chemotherapeutic options for this patient. Otherwise, we need to imp rove her strength to allow her to go to the [facility] for hospice care there, as patient is reques ting to be buried in the [facility]. Dictated By: KOBY FRANCO MD DP/NTS Conf#: [id number] DID#: [id number]
[2016-09-30 19:00] VITALS: BP 138/62; RESP 18
--- NOTE | 2016-09-30 20:29 | PN ---
Date/Time of Note Date/Time of Note DATE: 09/30/16 TIME: 20:16 Assessment/Plan Lines/Catheters IV Catheter Type (from Nrsg): PICC Line Layton in Place (from Nrsg): No (DISCONTINUED ) Assessment/Plan Assessment/Plan [facility] Progress Note Date of Service: 09/30/16 Today's Impression & Plan: Overall stable and appears improved. SBO shows signs of resolution post surgery. No indication for acute surgical intervention. With above assessment, I've recommended the following for today: 1. Cont current cares 2. Advance diet as tolerated 3. Increase activity 4. Increase ICS 5. Ostomy teachings 6. D/c planning 7. F/u pathology report 8. Oncology eval Thank you again for your great care of this very pleasant patient and wonderful family. If there are any questions, please feel free to call me at [phone]. TOTAL VISIT TIME: 20 minutes of which more than half was spent in [id number] discussion with the patient, possibly including family, as well as coordination of care between multiple physicians and providers. Disclaimer: Inadvertent spelling or grammatical errors are likely due to EHR/ dictation software use and do not reflect on the overall quality of patient care. Updated Clinical Summary: The patient is a very pleasant but unfortunate 66-year-old lady with history of stage III stomach malignancy, status post resection followed by systemic chemotherapy as well as radiation at [facility], who presented to [facility] with bowel obstruction symptoms and CT findings on 2016 showing evidence for distal small-bowel obstruction with transition in the lower pelvis at the level of either a focal mass or a focally thickened distal small bowel wall. There was evidence of gastrectomy and partial gastrectomy with wall thickening of the gastric remnant or reconstructed pouch. Free fluid was seen throughout the abdomen and pelvis and a well-distended gallbladder without evidence of biliary dilatation was seen. Uterus was absent consistent with the patient's prior hysterectomy and she also had appendectomy in the past. S/p laparoscopic, converted to open exploration with lysis of adhesions and performance of palliative diverting loop ileostomy and abdominal lavage with findings of widespread stage 4 gastric cancer with malignant obstruction. COMORBIDITIES: 1. Complete ( malignant) bowel obstruction from stage IV gastric cancer spread ; s/p laparoscopic, converted to open exploration with lysis of adhesions and performance of palliative diverting loop ileostomy and abdominal lavage 09/29/16 with findings of widespread stage 4 gastric cancer with malignant obstruction. 2. Gastric cancer stage III ([id number]) lymph nodes positive; + LVI; + PNI; initially s/p diagnostic laparoscopy with peritoneal washings at [facility] (Dr. Nisreen Baker) with thought of ruling out metastatic disease (which was not present) and neoadjuvant therapy, but patient represented with symptoms enough that Dr. Baker did not believe patient could tolerate neoadjuvant approach and therefore took her back on 11/19/15 and performed a subtotal gastrectomy with D2 lymphadenectomy. S/p systemic chemotherapy (FOLFOX completed 4 cycles 02/06/16) as well as radiation therapy with concurrent continuous infusional 5-FU 03/03/16, with patient reporting most recent CT scan showing a mass near the area of the resection and plan for followup CT in September prior to being admitted to [facility] with the above symptoms. 3. Previous hysterectomy with oophorectomy 4. Previous appendectomy. 5. Degenerative changes of lumbar spine. 6. Atherosclerotic vascular calcifications. 7. Simple cyst of lower pole of right kidney. 8. Peptic ulcer disease. 9. Reported history of inflammatory bowel syndrome. 10. Anxiety 11. HTN 12. Osteoarthritis 13. History of vertigo 14. Sister with breast cancer (dx at age 45; at age 50); mother in 1972 in the [facility] from pancreatic disease at age 46 (? cancer); maternal grandmother uterine cancer in her 70's; maternal uncle with ? oral ulcer disease (? malignancy) 15. Former smoker (quit 15-20 yrs ago) 16. History of dumping syndrome after gastrectomy. Subjective: No major events or complaints; no abd pain and under control with medications; no n/v/d; no sob or cp; + flatus and small output in the bag; - activity Objective: Vitals: See below Exam: GENERAL: On exam, the patient was laying in bed and appeared to be comfortable and in no acute distress. ABDOMEN: Soft, nontender and nondistended. Incision dressing c/d/i w/o obvious underlying e/e/d/h. Ostomy bag with air and small amount of stool. There are no peritoneal signs or guarding. SKIN: Skin appears to be pink and feels warm to touch. NEUROLOGIC: Patient is awake, alert, and follows commands appropriately. Exam/Review of Systems Vital Signs Vitals Vital Signs Date Time Temp Pulse Resp B/P Pulse Ox O2 Delivery O2 Flow Rate FiO2 09/30/16 07:55 98.9 100 16 112/55 96 09/29/16 17:25 Room Air Intake and Output 09/29/16 09/29/16 09/30/16 15:00 23:00 07:00 Intake Total 1400 ml 450 ml 750 ml Output Total 70 ml 440 ml Balance 1330 ml 450 ml 310 ml Results Result Diagram: 09/30/16 0500 09/30/16 0500 JARRELL LAMBERT M.D. Sep 30, 2016 20:28
[2016-10-01] MEDS: METOCLOPRAMIDE 10 MG INJ IV SCH ×3 (06:02→21:27)
[2016-10-01 07:14] LABS: POTASSIUM 4.4 mmol/L (3.5-5.1)
[2016-10-01 07:17] LABS: CREATININE 0.7 mg/dl (0.44-1.00)
[2016-10-01 07:18] LABS: CALCIUM 8.3 mg/dl (8.4-10.2); MAGNESIUM 2.1 mg/dl (1.7-2.5); PHOSPHORUS 3.1 mg/dl (2.5-4.9)
[2016-10-01 07:57] VITALS: BP 99/51; RESP 16
[2016-10-01] MEDS: LOSARTAN 50 MG TAB PO SCH (08:52)
[2016-10-01] MEDS: ACCU-CHEK XX SCH ×2 (08:55→21:00)
[2016-10-01] MEDS: ENOXAPARIN 40 MG/0.4 ML SYG SC SCH (08:57)
[2016-10-01] MEDS: HYDROCODONE/APAP (5/325) TAB PO PRN ×2 (10:03→18:07)
--- NOTE | 2016-10-01 13:07 | PN ---
Date/Time of Note Date/Time of Note DATE: 10/01/16 TIME: 13:05 Assessment/Plan Lines/Catheters IV Catheter Type (from Nrsg): PICC Line Layton in Place (from Nrsg): No (DISCONTINUED ) Assessment/Plan Assessment/Plan [facility] Progress Note Date of Service: 10/01/16 Today's Impression & Plan: Overall stable and improving with resolution of SBO and viable ostomy. No indication for acute surgical intervention. With above assessment, I've recommended the following for today: 1. Cont current cares 2. Regular diet 3. Increase activity 4. Increase ICS 5. Ostomy teachings 6. D/c planning for tomorrow 7. F/u pathology report 8. Oncology eval Thank you again for your great care of this very pleasant patient and wonderful family. If there are any questions, please feel free to call me at [phone]. TOTAL VISIT TIME: 20 minutes of which more than half was spent in [id number] discussion with the patient, possibly including family, as well as coordination of care between multiple physicians and providers. Disclaimer: Inadvertent spelling or grammatical errors are likely due to EHR/ dictation software use and do not reflect on the overall quality of patient care. Updated Clinical Summary: The patient is a very pleasant but unfortunate 66-year-old lady with history of stage III stomach malignancy, status post resection followed by systemic chemotherapy as well as radiation at [facility], who presented to [facility] with bowel obstruction symptoms and CT findings on 2016 showing evidence for distal small-bowel obstruction with transition in the lower pelvis at the level of either a focal mass or a focally thickened distal small bowel wall. There was evidence of gastrectomy and partial gastrectomy with wall thickening of the gastric remnant or reconstructed pouch. Free fluid was seen throughout the abdomen and pelvis and a well-distended gallbladder without evidence of biliary dilatation was seen. Uterus was absent consistent with the patient's prior hysterectomy and she also had appendectomy in the past. S/p laparoscopic, converted to open exploration with lysis of adhesions and performance of palliative diverting loop ileostomy and abdominal lavage with findings of widespread stage 4 gastric cancer with malignant obstruction. COMORBIDITIES: 1. Complete ( malignant) bowel obstruction from stage IV gastric cancer spread ; s/p laparoscopic, converted to open exploration with lysis of adhesions and performance of palliative diverting loop ileostomy and abdominal lavage 09/29/16 with findings of widespread stage 4 gastric cancer with malignant obstruction. 2. Gastric cancer stage III ([id number]) lymph nodes positive; + LVI; + PNI; initially s/p diagnostic laparoscopy with peritoneal washings at [facility] (Dr. Nisreen Baker) with thought of ruling out metastatic disease (which was not present) and neoadjuvant therapy, but patient represented with symptoms enough that Dr. Baker did not believe patient could tolerate neoadjuvant approach and therefore took her back on 11/19/15 and performed a subtotal gastrectomy with D2 lymphadenectomy. S/p systemic chemotherapy (FOLFOX completed 4 cycles 02/06/16) as well as radiation therapy with concurrent continuous infusional 5-FU 03/03/16, with patient reporting most recent CT scan showing a mass near the area of the resection and plan for followup CT in September prior to being admitted to [facility] with the above symptoms. 3. Previous hysterectomy with oophorectomy 4. Previous appendectomy. 5. Degenerative changes of lumbar spine. 6. Atherosclerotic vascular calcifications. 7. Simple cyst of lower pole of right kidney. 8. Peptic ulcer disease. 9. Reported history of inflammatory bowel syndrome. 10. Anxiety 11. HTN 12. Osteoarthritis 13. History of vertigo 14. Sister with breast cancer (dx at age 45; at age 50); mother in 1972 in the [facility] from pancreatic disease at age 46 (? cancer); maternal grandmother uterine cancer in her 70's; maternal uncle with ? oral ulcer disease (? malignancy) 15. Former smoker (quit 15-20 yrs ago) 16. History of dumping syndrome after gastrectomy. Subjective: No major events or complaints; no abd pain and under control with medications; no n/v/d; no sob or cp; + flatus and + output in the bag; + activity Objective: Vitals: See below Exam: GENERAL: On exam, the patient was laying in bed and appeared to be comfortable and in no acute distress. ABDOMEN: Soft, nontender and nondistended. Incision dressing d/c'd and incision c/d/i w/o obvious e/e/d/h. Ostomy bag with air and small amount of stool. There are no peritoneal signs or guarding. SKIN: Skin appears to be pink and feels warm to touch. NEUROLOGIC: Patient is awake, alert, and follows commands appropriately. Exam/Review of Systems Vital Signs Vitals Vital Signs Date Time Temp Pulse Resp B/P Pulse Ox O2 Delivery O2 Flow Rate FiO2 10/01/16 07:57 99.2 92 16 99/51 94 09/29/16 17:25 Room Air Intake and Output 09/30/16 09/30/16 10/01/16 15:00 23:00 07:00 Intake Total 740 ml 540 ml Output Total 400 ml 500 ml Balance 340 ml 40 ml Results Result Diagram: 09/30/16 0500 10/01/16 0559 JARRELL LAMBERT M.D. Oct 01, 2016 13:07
[2016-10-01] MEDS: TPN 1,000 ML IV SCH ×2 (17:00→21:28)
[2016-10-01] MEDS: DEXTROSE 5%-0.9% NACL 1,000 ML IV SCH (18:06)
--- NOTE | 2016-10-01 18:30 | PN ---
DATE: 10/01/2016 SUBJECTIVE: The patient is awake, alert, has been able to tolerate a full liquid, and was able to tolerate distance ambulation. The patient also reports that her son has been trained to change ileostomy bag, and she should be ready to go home soon. OBJECTIVE VITAL SIGNS: Temperature 99.2, blood pressure 99/51, pulse 92, respiration rate 94% on room air. HEENT: Pupils equally round, reactive to light. Oropharynx is clear. CHEST: Lungs are clear to auscultation. CARDIAC: Regular rate and rhythm, normal S1, S2. ABDOMEN: Active bowel sounds, soft, nondistended, nontender. EXTREMITIES: No clubbing, cyanosis, or edema. LABORATORY DATA: Sodium 131, potassium 4.4, BUN 35, creatinine 0.7. ASSESSMENT AND PLAN: 1. Small-bowel obstruction, symptomatically improved with palliative ileostomy. 2. Malnutrition. Continue TPN until patient is able to tolerate a full regular diet. 3. Elevated BUN. May be due to mild dehydration, Hydrate with IV fluid today , and recheck a basic metabolic panel in the morning. 4. Stomach cancer. Follow up with terrazzo polisher and oncologist as an outpatient. Dictated By: KOBY FRANCO MD DP/OH Conf#: [id number] DID#: [id number] MTDD
[2016-10-01 19:57] VITALS: BP 96/55; RESP 18
[2016-10-02 06:00] LABS: ADD SCAN DIFF NO
[2016-10-02 06:28] LABS: BASOPHILS % 0.2 % (0.0-2.0); EOSINOPHILS % 0.2 % (0.0-7.0); HEMATOCRIT 23.3 % (37.0-47.0); HEMOGLOBIN 7.5 g/dl (12.0-16.0); LYMPHOCYTES # 0.8 10^3/ul (0.8-2.9); LYMPHOCYTES % 12.6 % (15.0-51.0); MEAN CORPUSCULAR HEMOGLOBIN 28.7 pg (29.0-33.0); MEAN CORPUSCULAR HGB CONC 32.2 g/dl (32.0-37.0); MEAN CORPUSCULAR VOLUME 89.3 fl (82.0-101.0); MEAN PLATELET VOLUME 10.2 fl (7.4-10.4); MONOCYTE # 0.5 10^3/ul (0.3-0.9); MONOCYTES % 7.5 % (0.0-11.0); NEUTROPHIL # 4.8 10^3/ul (1.6-7.5); NEUTROPHILS % 79.2 % (39.0-77.0); PLATELET COUNT 228 10^3/UL (140-415); RED BLOOD COUNT 2.61 10^6/ul (4.20-5.40)
[2016-10-02] MEDS: METOCLOPRAMIDE 10 MG INJ IV SCH ×3 (06:55→22:03)
[2016-10-02 06:56] LABS: CALCIUM 7.8 mg/dl (8.4-10.2); CREATININE 0.48 mg/dl (0.44-1.00); MAGNESIUM 1.9 mg/dl (1.7-2.5); PHOSPHORUS 2.7 mg/dl (2.5-4.9); POTASSIUM 4.2 mmol/L (3.5-5.1)
[2016-10-02 08:13] VITALS: BP 114/59; RESP 18
[2016-10-02] MEDS: LOSARTAN 50 MG TAB PO SCH (09:11)
[2016-10-02] MEDS: ENOXAPARIN 40 MG/0.4 ML SYG SC SCH (09:27)
[2016-10-02] MEDS: ACCU-CHEK XX SCH ×2 (09:28→20:59)
--- NOTE | 2016-10-02 09:52 | PN ---
Date/Time of Note Date/Time of Note DATE: 10/02/16 TIME: 09:48 Assessment/Plan Lines/Catheters IV Catheter Type (from Nrsg): PICC Line Layton in Place (from Nrsg): No (DISCONTINUED ) Assessment/Plan Assessment/Plan [facility] Progress Note Date of Service: 10/02/16 Today's Impression & Plan: Overall stable and improving. No further issues with SBO and viable ostomy. No indication for acute surgical intervention. Educated patient and family regarding high likelihood of dehydration from this type of ostomy and the need for patient to drink enough liquids at home and to keep track of the number of times she has urine output in order to hopefully decrease the chances of her coming significantly dehydrated and needing readmission of the hospital. Answered several questions to the best my ability. Patient otherwise appears well enough to be discharged home from my standpoint. With above assessment, I've recommended the following for today: 1. Cont current cares 2. Regular diet 3. Increase activity 4. Increase ICS 5. Ostomy teachings 6. D/c planning per primary team 7. F/u with me in my office in 1-2 weeks for wound check 8. Please include the following in the patient's discharge instructions "Please call [phone] if any of fever, nausea, vomiting, discharge from wound, wound redness, increase or sudden pain, blood in stool or vomit, or any other unusual signs or symptoms. Also, please call the same number in a few days to schedule an appointment for your follow up visit. Patient may remove dressings tomorrow. Showers OK starting tomorrow. No swimming , hot tub or bath for 2 weeks. No lifting more than 25 lbs for 8 weeks." Thank you again for your great care of this very pleasant patient and wonderful family. If there are any questions, please feel free to call me at [phone]. TOTAL VISIT TIME: 20 minutes of which more than half was spent in [id number] discussion with the patient, possibly including family, as well as coordination of care between multiple physicians and providers. Disclaimer: Inadvertent spelling or grammatical errors are likely due to EHR/ dictation software use and do not reflect on the overall quality of patient care. Updated Clinical Summary: The patient is a very pleasant but unfortunate 66-year-old lady with history of stage III stomach malignancy, status post resection followed by systemic chemotherapy as well as radiation at [facility], who presented to [facility] with bowel obstruction symptoms and CT findings on 2016 showing evidence for distal small-bowel obstruction with transition in the lower pelvis at the level of either a focal mass or a focally thickened distal small bowel wall. There was evidence of gastrectomy and partial gastrectomy with wall thickening of the gastric remnant or reconstructed pouch. Free fluid was seen throughout the abdomen and pelvis and a well-distended gallbladder without evidence of biliary dilatation was seen. Uterus was absent consistent with the patient's prior hysterectomy and she also had appendectomy in the past. S/p laparoscopic, converted to open exploration with lysis of adhesions and performance of palliative diverting loop ileostomy and abdominal lavage with findings of widespread stage 4 gastric cancer with malignant obstruction. Final pathology showed metastatic gastric cancer on specimen sent from mesenteric lining peritoneum. COMORBIDITIES: 1. Complete ( malignant) bowel obstruction from stage IV gastric cancer spread ; s/p laparoscopic, converted to open exploration with lysis of adhesions and performance of palliative diverting loop ileostomy and abdominal lavage 09/29/16 with findings of widespread stage 4 gastric cancer with malignant obstruction. 2. Gastric cancer stage III ([id number]) lymph nodes positive; + LVI; + PNI; initially s/p diagnostic laparoscopy with peritoneal washings at [facility] (Dr. Nisreen Baker) with thought of ruling out metastatic disease (which was not present) and neoadjuvant therapy, but patient represented with symptoms enough that Dr. Baker did not believe patient could tolerate neoadjuvant approach and therefore took her back on 11/19/15 and performed a subtotal gastrectomy with D2 lymphadenectomy. S/p systemic chemotherapy (FOLFOX completed 4 cycles 02/06/16) as well as radiation therapy with concurrent continuous infusional 5-FU 03/03/16, with patient reporting most recent CT scan showing a mass near the area of the resection and plan for followup CT in September prior to being admitted to [facility] with the above symptoms. 3. Previous hysterectomy with oophorectomy 4. Previous appendectomy. 5. Degenerative changes of lumbar spine. 6. Atherosclerotic vascular calcifications. 7. Simple cyst of lower pole of right kidney. 8. Peptic ulcer disease. 9. Reported history of inflammatory bowel syndrome. 10. Anxiety 11. HTN 12. Osteoarthritis 13. History of vertigo 14. Sister with breast cancer (dx at age 45; at age 50); mother in [address] [facility] from pancreatic disease at age 46 (? cancer); maternal grandmother uterine cancer in her 70's; maternal uncle with ? oral ulcer disease (? malignancy) 15. Former smoker (quit 15-20 yrs ago) 16. History of dumping syndrome after gastrectomy. Subjective: No major events or complaints; no abd pain and under control with medications; no n/v/d; no sob or cp; + flatus and + output in the bag; + activity Objective: Vitals: See below Exam: GENERAL: On exam, the patient was sitting in a chair and appeared to be comfortable and in no acute distress. ABDOMEN: Soft, nontender and nondistended. Incisions c/d/i w/o obvious e/e/d/h. Ostomy bag with air and small amount of stool. There are no peritoneal signs or guarding. SKIN: Skin appears to be pink and feels warm to touch. NEUROLOGIC: Patient is awake, alert, and follows commands appropriately. Exam/Review of Systems Vital Signs Vitals Vital Signs Date Time Temp Pulse Resp B/P Pulse Ox O2 Delivery O2 Flow Rate FiO2 10/02/16 08:13 99.4 86 18 114/59 98 09/29/16 17:25 Room Air Intake and Output 10/01/16 10/01/16 10/02/16 14:59 22:59 06:59 Intake Total 1180 ml 1270 ml Output Total 475 ml 850 ml Balance 705 ml 420 ml Results Result Diagram: 10/02/16 0523 10/02/16 0518 JARRELL LAMBERT M.D. Oct 02, 2016 09:52
[2016-10-02] MEDS ORDERED: BARIUM SULF 2% 450 ML BTL (BERRY SMOOTHIE) PO ONE (13:00)
[2016-10-02] MEDS ORDERED: DIPHENHYDRAMINE 50 MG INJ IV ONE (13:00)
[2016-10-02] MEDS ORDERED: ACETAMINOPHEN 325 MG TAB PO ONE (13:00)
[2016-10-02] MEDS: HYDROmorphONE 1 MG/ML SYG IV PRN ×2 (13:14→16:56)
--- NOTE | 2016-10-02 13:45 | PN ---
DATE: 10/02/2016 10/02/2016 SUBJECTIVE: The patient is awake, alert. Complains of mild abdominal pain after she eats small amount of solid food today. OBJECTIVE: VITAL SIGNS: Temperature 99.4, blood pressure 114/59, pulse of 86, respiration rate 18, O2 saturation 98% on room air. HEENT: Pupils equally round, reactive to light. Oropharynx clear. LUNGS: Clear to auscultation. CARDIAC: Regular rate and rhythm, normal S1, S2. ABDOMEN: Active bowel sounds. Mild left lower quadrant tenderness without rebound or guarding. Ileostomy draining liquid excrement. EXTREMITIES: No clubbing, cyanosis, or edema. LABORATORY DATA: WBC 6.0, hemoglobin 7.5, hematocrit 23.3, platelet count 228, 000. Sodium 130, potassium 4.2, chloride 101, carbon dioxide 26, BUN 24, creatinine 0.48, glucose 98. ASSESSMENT AND PLAN: 1. Small-bowel obstruction relieved after palliative ileostomy. 2. Anemia may be due to recent surgery and dilution with IV fluids and TPN, but since patient does have some increased abdominal pain, I have discussed with Dr. Michel and we will order an abdominal and pelvic CT scan. In the meantime, we will transfuse 2 units of packed red blood cells. 3. Low grade temperature may be related to postsurgical status as well as underlying malignancy, but will recheck blood and urine cultures. 4. Hyponatremia. This has been progressive since admission and may be related to patient's nutritional status. I will check a urine sodium for syndrome of inappropriate antidiuretic hormone and start patient on oral salt tablet. Continue IV fluids and TPN for now since patient is able to tolerate only very small amount of food. Dictated By: KOBY FRANCO MD DP/NTS Conf#: [id number] DID#: [id number] MTDD
[2016-10-02] MEDS: DEXTROSE 5%-0.9% NACL 1,000 ML IV SCH (14:31)
--- NOTE | 2016-10-02 15:19 | RADRPT ---
Vent Rate: 74 bpm RR Interval: 0 msec [place] Interval: 152 msec QRS Duration: 72 msec QT Interval: 404 msec QTC Interval: 448 msec P-R-T [place]: 41 - 26 - 55 degrees Normal sinus rhythm Normal ECG Electronically Signed By: Eleuterio Pitts [id number]
[2016-10-02] MEDS ORDERED: SOD CHLORIDE 0.9% 100 ML ONE (18:06)
[2016-10-02] MEDS ORDERED: IOHEXOL 300MG/ML 150 ML BTL ONE (18:06)
[2016-10-02] MEDS: TPN 1,000 ML IV SCH (18:10)
--- NOTE | 2016-10-02 19:00 | RADRPT ---
PROCEDURE: XR Chest. CLINICAL INDICATION: Shortness of breath. TECHNIQUE: Single frontal view. COMPARISON: 09/30/2016. FINDINGS: The left arm PICC line and the right internal jugular vein implanted port central venous catheter re main in satisfactory position. There is mild left basilar atelectasis, unchanged. The lungs are ot herwise clear. The heart size is normal. There is calcification in the aorta consistent with atherosclerosis. There is no pleural effusion. There is no pneumothorax. IMPRESSION: 1. No change from 09/30/2016. RPTAT: QQ .Roberto Carrizales MD, MD Date Time Electronically viewed and signed by .Roberto Carrizales MD, MD on 10/02/2016 19:00 .R/
[2016-10-02 19:46] VITALS: BP 100/45; RESP 20
[2016-10-02] MEDS: SODIUM CHLORIDE 1 GM TAB PO SCH ×2 (20:59→21:00)
--- NOTE | 2016-10-02 22:02 | RADRPT ---
PROCEDURE: CT Abdomen and Pelvis without and with contrast. CLINICAL INDICATION: Postoperative abdominal pain and anemia. Status post exploratory laparotomy converted to open, lysis of adhesions, palliative ileostomy, and biopsy mesentery. History of hyper tension, gastric cancer, gastrectomy, and hysterectomy. TECHNIQUE: A CT scan of the abdomen and pelvis was performed without and with intravenous contrast . The patient was scanned before and after the uncomplicated intravenous administration of 100 cc o f Omnipaque-300. Coronal and sagittal reformatted images were obtained from the axial source images . Images were reviewed on a high-resolution PACS workstation. CTDIvol: 4.39, 7.24 mGy. DLP: 630.60 m Gy-cm. One or more of the following dose reduction techniques were used: - Automated exposure control. - Adjustment of the mA and/or kV according to patient size. - Use of iterative reconstruction technique. COMPARISON: CT of the abdomen and pelvis dated 09/18/2016. FINDINGS: There are trace bilateral pleural effusions, left larger than right, and mild bilateral lower lobe a telectasis. There is a small to moderate volume of ascites and diffuse anasarca, limiting evaluation for intra-a bdominal inflammation and masses. A small to moderate amount of pneumoperitoneum is also noted, com patible with recent surgery. There is also a small to moderate amount of postoperative extraperitone al air in the pelvis. The patient is status post recent midline abdominopelvic laparotomy, with skin jim seen along the incision site. There is peritoneal enhancement in the lower abdomen and pelv is, slightly more prominent than in the prior examination. There is also a 2.2 x 5.4 x 3.4 cm rim en hancing intraperitoneal fluid collection in the posterior inferior pelvis. Infiltration of the pres acral fat is unchanged. The patient status post prior distal gastrectomy with anastomosis of the jejunum to the residual sto mach. There is dilatation of the afferent (3.6 cm) and proximal efferent (4.3 cm) small bowel loops . No abrupt transition point to collapsed small bowel is identified the small bowel obstruction. Th e patient is status post recent left lower quadrant loop ileostomy. No small bowel wall thickening i s identified. The colon is underdistended, limiting evaluation for colonic wall thickening. The yfn endix is not identified. The liver is unremarkable. The gallbladder is normal in appearance. The common bile duct is not dila gissell. The spleen is not enlarged. The pancreas is atrophic. The adrenal glands are unremarkable. The kidneys are normal in size. There is no perinephric fat stranding. No hydronephrosis is seen. Th ere is a 1.5 cm right renal cyst. The urinary bladder is unremarkable. The patient is status post hy sterectomy. No adnexal mass is seen. No lymphadenopathy is identified. There are moderate arterial calcifications. No suspicious osseous lesion is idenitified. IMPRESSION: 1. Status post recent midline abdominopelvic laparotomy and left lower quadrant loop ileostomy. 2. Evidence of prior distal gastrectomy with anastomosis of the jejunum to the residual stomach. Th ere is dilatation of the afferent (3.6 cm) and proximal efferent (4.3 cm) small bowel loops, but no abrupt transition point to collapsed small bowel is identified to suggest a small bowel obstruction. This could be further evaluated with an upper GI small bowel follow-through examination if clinical ly warranted. 3. Small to moderate volume of ascites and diffuse anasarca, limiting evaluation for intraperitoneal inflammation and masses. 4. Small to moderate volume of pneumoperitoneum and extraperitoneal pelvic air, consistent with rece nt surgery. 5. Peritoneal enhancement in the inferior abdomen and pelvis, slightly more prominent than in the p rior examination, consistent with peritonitis. 6. 2.2 x 5.4 x 3.4 cm rim enhancing intraperitoneal fluid collection in the posterior inferior pelv is, possibly an abscess versus loculated fluid within adhesions. 7. Status post hysterectomy. 8. Moderate atherosclerotic arterial calcifications. 9. Trace bilateral pleural effusions. RPTAT: HTAR .Morteza Parish MD, Date Time Electronically viewed and signed by .Morteza Parish MD, on 10/02/2016 22:01 .R/
[2016-10-03] MEDS: METOCLOPRAMIDE 10 MG INJ IV SCH ×3 (05:48→21:20)
[2016-10-03 06:45] LABS: ADD SCAN DIFF NO
[2016-10-03 07:21] LABS: POTASSIUM 3.8 mmol/L (3.5-5.1)
[2016-10-03 07:24] LABS: CREATININE 0.51 mg/dl (0.44-1.00)
[2016-10-03 07:25] LABS: CALCIUM 7.9 mg/dl (8.4-10.2)
[2016-10-03 08:13] VITALS: BP 107/58; RESP 18
[2016-10-03 08:41] LABS: HEMATOCRIT 31.3 % (37.0-47.0); HEMOGLOBIN 10.3 g/dl (12.0-16.0); MEAN CORPUSCULAR HEMOGLOBIN 29.2 pg (29.0-33.0); MEAN CORPUSCULAR HGB CONC 32.9 g/dl (32.0-37.0); MEAN CORPUSCULAR VOLUME 88.7 fl (82.0-101.0); MEAN PLATELET VOLUME 10.1 fl (7.4-10.4); PLATELET COUNT 231 10^3/UL (140-415); RED BLOOD COUNT 3.53 10^6/ul (4.20-5.40); RED CELL DISTRIBUTION WIDTH 14.4 % (11.5-14.5); WHITE BLOOD COUNT 4.9 10^3/ul (4.8-10.8)
[2016-10-03] MEDS: LOSARTAN 50 MG TAB PO SCH (08:53)
[2016-10-03] MEDS: SODIUM CHLORIDE 1 GM TAB PO SCH ×3 (08:53→21:20)
[2016-10-03] MEDS: ACCU-CHEK XX SCH ×2 (09:00→21:16)
[2016-10-03] MEDS: ENOXAPARIN 40 MG/0.4 ML SYG SC SCH (09:16)
[2016-10-03 11:25] LABS: LYMPHOCYTES # 0.7 10^3/ul (0.8-2.9); MONOCYTE # 0.4 10^3/ul (0.3-0.9); NEUTROPHIL # 1.9 10^3/ul (1.6-7.5)
[2016-10-03 11:30] LABS: OVALOCYTES FEW; POIKILOCYTOSIS 1+
--- NOTE | 2016-10-03 12:14 | PN ---
DATE: 10/03/2016 SUBJECTIVE: Follow up on palliative ileostomy for small-bowel obstruction, hypertension and anemia. The patient completed a blood transfusion this morning due to hemoglobin of 7.5 yesterday. Patistephan dye is feeling better and was able to walk to the bathroom. The patient did have a brownish fluid in the ileostomy bag. No reported chest pain or shortness of breath. No reported dizziness. No repor gissell bleeding from any site. Patient does not have orthopnea. Vital signs have remained stable in t he last 24 hours. The patient did have a low grade temperature earlier, did not have any chills. N o reported vomiting. The patient is tolerating diet. PHYSICAL EXAMINATION: GENERAL: The patient is conscious, awake, alert. VITAL SIGNS: Temperature 99.5, pulse 79, respiration 18, blood pressure 107/58, O2 sats 94% on room air. HEENT: Conjunctivae are pale, lids are normal. Oropharynx revealed pale mucosa. Nose and ears nor mal. NECK: Supple. No mass, no thyromegaly. CHEST: Revealed diminished air entry at bases. No use of accessory muscles. CARDIOVASCULAR: S1, S2 normal. No murmur. ABDOMEN: Soft, nondistended. Mild incisional tenderness present. Ileostomy and draining dark brow n liquid, EXTREMITIES: No edema, clubbing or cyanosis. SKIN: Without acute rash or ulcer. NEUROLOGIC: The patient is awake, alert, fairly oriented with no gross focal deficit. LABORATORY DATA: Labs this morning, WBC 4.9, hemoglobin 10.3, platelets 231. Chemistry: Sodium 13 3, potassium 3.8, BUN 23, creatinine 0.5, glucose 102. Prealbumin 4.9. IMPRESSION: 1. Gastric cancer stage III, status post diagnostic laparoscopy with peritoneal washings, status po st chemo, status post subtotal gastrectomy. The patient came with a bowel obstruction and underwen t palliative ileostomy. The patient postoperatively is doing well. 2. Severe malnutrition Continue total parenteral nutrition. 3. Hypertension. Continue Cozaar. 4. Hyponatremia, improved. Continue sodium tablets, as urinary sodium was more than 20. 5. Anemia, status post transfusion. We will continue to monitor hemoglobin. Will discontinue IV f luids, but continue total parenteral nutrition. The patient is also tolerating p.o. diet. Will con tinue to monitor electrolytes. Dictated By: CALLI SY/OH Conf#: [id number] DID#: [id number]
--- NOTE | 2016-10-03 13:43 | PN ---
Date/Time of Note Date/Time of Note DATE: 10/03/16 TIME: 13:34 Assessment/Plan Lines/Catheters IV Catheter Type (from Nrs): PICC Line Layton in Place (from Nrs): No Assessment/Plan Assessment/Plan [facility] Progress Note Date of Service: 10/03/16 Today's Impression & Plan: Overall stable with issues. Unclear if post operative paralytic ileus vs developing pelvic abscess or combo. Ostomy productive today and abd appears benign. CT reviewed. No indication for acute surgical intervention, but need to carefully observe in the hospital. Answered questions to the best my ability. With above assessment, I've recommended the following for today: 1. Cont current cares 2. Cont regular diet 3. Increase activity 4. Increase ICS 5. Ostomy teachings 6. Labs in am 7. Keep inhouse Thank you again for your great care of this very pleasant patient and wonderful family. If there are any questions, please feel free to call me at [phone]. TOTAL VISIT TIME: 20 minutes of which more than half was spent in [id number] discussion with the patient, possibly including family, as well as coordination of care between multiple physicians and providers. Disclaimer: Inadvertent spelling or grammatical errors are likely due to EHR/ dictation software use and do not reflect on the overall quality of patient care. Updated Clinical Summary: The patient is a very pleasant but unfortunate 66-year-old lady with history of stage III stomach malignancy, status post resection followed by systemic chemotherapy as well as radiation at [facility] ([place] who presented to [facility] with bowel obstruction symptoms and CT findings on 2016 showing evidence for distal small-bowel obstruction with transition in the lower pelvis at the level of either a focal mass or a focally thickened distal small bowel wall. There was evidence of gastrectomy and partial gastrectomy with wall thickening of the gastric remnant or reconstructed pouch. Free fluid was seen throughout the abdomen and pelvis and a well-distended gallbladder without evidence of biliary dilatation was seen. Uterus was absent consistent with the patient's prior hysterectomy and she also had appendectomy in the past. S/p laparoscopic, converted to open exploration with lysis of adhesions and performance of palliative diverting loop ileostomy and abdominal lavage with findings of widespread stage 4 gastric cancer with malignant obstruction. Final pathology showed metastatic gastric cancer on specimen sent from mesenteric lining peritoneum. N/v POD 3, but ostomy productive again POD 4. CT showed fluid and air in abd (expected) with ? abscess formation in pelvis. Patient kept in house. COMORBIDITIES: 1. Complete ( malignant) bowel obstruction from stage IV gastric cancer spread ; s/p laparoscopic, converted to open exploration with lysis of adhesions and performance of palliative diverting loop ileostomy and abdominal lavage 09/29/16 with findings of widespread stage 4 gastric cancer with malignant obstruction. 2. Gastric cancer stage III ([id number]) lymph nodes positive; + LVI; + PNI; initially s/p diagnostic laparoscopy with peritoneal washings at [facility] ([place] (Dr. Nisreen Baker) with thought of ruling out metastatic disease (which was not present) and neoadjuvant therapy, but patient represented with symptoms enough that Dr. Baker did not believe patient could tolerate neoadjuvant approach and therefore took her back on 11/19/15 and performed a subtotal gastrectomy with D2 lymphadenectomy. S/p systemic chemotherapy (FOLFOX completed 4 cycles 02/06/16) as well as radiation therapy with concurrent continuous infusional 5-FU 03/03/16, with patient reporting most recent CT scan showing a mass near the area of the resection and plan for followup CT in September prior to being admitted to [facility] with the above symptoms. 3. Previous hysterectomy with oophorectomy 4. Previous appendectomy. 5. Degenerative changes of lumbar spine. 6. Atherosclerotic vascular calcifications. 7. Simple cyst of lower pole of right kidney. 8. Peptic ulcer disease. 9. Reported history of inflammatory bowel syndrome. 10. Anxiety 11. HTN 12. Osteoarthritis 13. History of vertigo 14. Sister with breast cancer (dx at age 45; at age 50); mother in 1972 in the [facility] from pancreatic disease at age 46 (? cancer); maternal grandmother uterine cancer in her 70's; maternal uncle with ? oral ulcer disease (? malignancy) 15. Former smoker (quit 15-20 yrs ago) 16. History of dumping syndrome after gastrectomy. Subjective: No major events or complaints other than above; no major abd pain today and under control with medications; no n/v/d; no sob or cp; + air and stool in the bag; + activity Objective: Vitals: See below Exam: GENERAL: On exam, the patient was laying in bed and appeared to be comfortable and in no acute distress. ABDOMEN: Soft, nontender and nondistended. Incisions c/d/i w/o obvious e/e/d/h. Ostomy bag with air and small amount of stool. There are no peritoneal signs or guarding. SKIN: Skin appears to be pink and feels warm to touch. NEUROLOGIC: Patient is awake, alert, and follows commands appropriately. Exam/Review of Systems Vital Signs Vitals Vital Signs Date Time Temp Pulse Resp B/P Pulse Ox O2 Delivery O2 Flow Rate FiO2 10/03/16 08:13 99.5 79 18 107/58 94 09/29/16 17:25 Room Air Intake and Output 10/02/16 10/02/16 10/03/16 15:00 23:00 07:00 Intake Total 450 ml 1410 ml 1610 ml Output Total 750 ml 800 ml Balance 450 ml 660 ml 810 ml Results Result Diagram: 10/03/16 0510 10/03/16 0510 JARRELL LAMBERT M.D. Oct 03, 2016 13:42
[2016-10-03] MEDS: PIPER-TAZO 3.375 GM IV (PMX) 100 ML IVPB SCH ×3 (13:59→23:50)
[2016-10-03] MEDS: TPN 1,000 ML IV SCH (17:35)
[2016-10-03 19:35] VITALS: BP 134/69; RESP 18
[2016-10-04 05:53] LABS: POTASSIUM 3.9 mmol/L (3.5-5.1)
[2016-10-04 05:55] LABS: MAGNESIUM 1.7 mg/dl (1.7-2.5); PHOSPHORUS 2.9 mg/dl (2.5-4.9)
[2016-10-04 05:56] LABS: CREATININE 0.44 mg/dl (0.44-1.00)
[2016-10-04] MEDS: METOCLOPRAMIDE 10 MG INJ IV SCH ×3 (06:01→21:10)
[2016-10-04] MEDS: PIPER-TAZO 3.375 GM IV (PMX) 100 ML IVPB SCH ×4 (06:01→23:20)
[2016-10-04 07:58] VITALS: BP 112/59; RESP 18
[2016-10-04] MEDS: LOSARTAN 50 MG TAB PO SCH (08:30)
[2016-10-04] MEDS: SODIUM CHLORIDE 1 GM TAB PO SCH ×3 (08:30→21:10)
[2016-10-04] MEDS: ENOXAPARIN 40 MG/0.4 ML SYG SC SCH (08:34)
[2016-10-04] MEDS: ACCU-CHEK XX SCH (09:00)
[2016-10-04] MEDS: TPN 1,000 ML IV SCH (10:00)
[2016-10-04 20:00] VITALS: BP 155/76; RESP 20
[2016-10-04] MEDS: HYDROmorphONE 1 MG/ML SYG IV PRN (21:55)
--- NOTE | 2016-10-05 01:42 | PN ---
DATE: 10/03/2016 SUBJECTIVE: Follow up on bowel obstruction status post palliative ileostomy, metastatic gastric can cer, status post subtotal gastrectomy and chemo. Patient denies any chest pain or shortness of manfred th. Postoperative pain is being managed by IV pain medications. No reported fever or chills. No r eported vomiting. No reported leg pain. No reported focal weakness. No reported chest congestion. No reported temperature spike. PHYSICAL EXAMINATION: GENERAL: The patient is conscious, awake, alert. VITAL SIGNS: Blood pressure 155/70, temperature 98.4, pulse 79, respirations 20, O2 saturation 100% on 2 liters nasal cannula. HEENT: Atraumatic, normocephalic. Conjunctivae and lids normal. Oropharynx clear. NECK: Supple. No mass, no thyromegaly. CHEST: Fairly clear. No use of accessory muscles. CARDIOVASCULAR: S1, S2 normal. No murmur, gallop or rub. ABDOMEN: Soft. Incision clean. Ileostomy has liquid stool. No abdominal distention. EXTREMITIES: No leg edema. Pedal pulses palpable. SKIN: Without acute rash. NEUROLOGIC: The patient is awake, alert with no gross focal deficits. LABORATORY DATA: Done this morning, sodium 138, potassium 3.9, BUN 17, creatinine 0.4, glucose 94. IMPRESSION: 1. Metastatic gastric CA status post subtotal gastrectomy, as well as chemo and recently presented with small-bowel obstruction status post surgery and palliative ileostomy. The patient seems to be tolerating diet well. 2. Hyponatremia, resolved. 3. Hypertension. Blood pressure slightly high. We will monitor. If patient continues to have chuyita vated blood pressures, we will adjust her antihypertensive medications. We will continue Cozaar for now. 4. Anemia, status post transfusion yesterday. We will do followup CBC tomorrow. Discharge deborahnishirley haed when cleared by Dr. Michel. We will continue to follow her from medical standpoint. Dictated By: CALLI SY/OH Conf#: [id number] DID#: [id number]
[2016-10-05] MEDS: HYDROCODONE/APAP (5/325) TAB PO PRN (04:11)
[2016-10-05 05:49] LABS: ADD SCAN DIFF NO
[2016-10-05 05:51] LABS: BASOPHILS % 0.3 % (0.0-2.0); EOSINOPHILS # 0.1 10^3/ul (0.0-0.5); EOSINOPHILS % 0.9 % (0.0-7.0); HEMATOCRIT 30.8 % (37.0-47.0); LYMPHOCYTES # 0.6 10^3/ul (0.8-2.9); LYMPHOCYTES % 9.2 % (15.0-51.0); MEAN CORPUSCULAR HGB CONC 32.5 g/dl (32.0-37.0); MEAN CORPUSCULAR VOLUME 89.3 fl (82.0-101.0); MEAN PLATELET VOLUME 9.4 fl (7.4-10.4); MONOCYTE # 0.7 10^3/ul (0.3-0.9); MONOCYTES % 10.1 % (0.0-11.0); NEUTROPHIL # 5.5 10^3/ul (1.6-7.5); NEUTROPHILS % 79.1 % (39.0-77.0); PLATELET COUNT 271 10^3/UL (140-415); RED BLOOD COUNT 3.45 10^6/ul (4.20-5.40); RED CELL DISTRIBUTION WIDTH 14.2 % (11.5-14.5); WHITE BLOOD COUNT 6.9 10^3/ul (4.8-10.8)
[2016-10-05] MEDS: PIPER-TAZO 3.375 GM IV (PMX) 100 ML IVPB SCH ×4 (06:00→23:27)
[2016-10-05] MEDS: METOCLOPRAMIDE 10 MG INJ IV SCH ×3 (06:00→21:12)
[2016-10-05 06:03] LABS: INR 1.15; PROTIME 14.7 Sec (12.2-14.2); PT RATIO 1.1
[2016-10-05 06:04] LABS: PARTIAL THROMBOPLASTIN TIME 29.7 Sec (25.0-35.0)
[2016-10-05 06:06] LABS: ALBUMIN 2.3 g/dl (3.3-4.9); POTASSIUM 3.6 mmol/L (3.5-5.1)
[2016-10-05 06:08] LABS: BILIRUBIN,INDIRECT 0.5 mg/dl (0-1.1); BILIRUBIN,TOTAL 0.5 mg/dl (0.2-1.3); CREATININE 0.47 mg/dl (0.44-1.00)
[2016-10-05 06:09] LABS: ALBUMIN/GLOBULIN RATIO 0.69; CALCIUM 8.4 mg/dl (8.4-10.2); TOTAL PROTEIN 5.6 g/dl (6.1-8.1)
[2016-10-05 06:10] LABS: MAGNESIUM 1.6 mg/dl (1.7-2.5)
[2016-10-05] MEDS: LOSARTAN 50 MG TAB PO SCH (08:12)
[2016-10-05] MEDS: SODIUM CHLORIDE 1 GM TAB PO SCH ×3 (08:12→21:12)
[2016-10-05] MEDS: ENOXAPARIN 40 MG/0.4 ML SYG SC SCH (08:18)
[2016-10-05 08:20] VITALS: BP 136/77; RESP 18
--- NOTE | 2016-10-05 16:41 | PN ---
Date/Time of Note Date/Time of Note DATE: 10/05/16 TIME: 16:39 Assessment/Plan Lines/Catheters IV Catheter Type (from Nrs): PICC Line Layton in Place (from Nrs): No Assessment/Plan Assessment/Plan [facility] Progress Note Date of Service: 10/05/16 Today's Impression & Plan: Overall stable and improved. No obvious evidence of intraabdominal abscess. Seems to have tolerated weaning off the TPN and saline locking IV's. Ostomy productive and abd appears benign. No indication for acute surgical intervention. May be able to d/c tomorrow if stable. Answered questions to the best my ability. With above assessment, I've recommended the following for today: 1. Cont current cares 2. Cont regular diet 3. Increase activity 4. Increase ICS 5. Ostomy teachings 6. Labs in am 7. Possible d/c tomorrow Thank you again for your great care of this very pleasant patient and wonderful family. If there are any questions, please feel free to call me at [phone]. TOTAL VISIT TIME: 20 minutes of which more than half was spent in [id number] discussion with the patient, possibly including family, as well as coordination of care between multiple physicians and providers. Disclaimer: Inadvertent spelling or grammatical errors are likely due to EHR/ dictation software use and do not reflect on the overall quality of patient care. Updated Clinical Summary: The patient is a very pleasant but unfortunate 66-year-old lady with history of stage III stomach malignancy, status post resection followed by systemic chemotherapy as well as radiation at [facility], who presented to [facility] with bowel obstruction symptoms and CT findings on 2016 showing evidence for distal small-bowel obstruction with transition in the lower pelvis at the level of either a focal mass or a focally thickened distal small bowel wall. There was evidence of gastrectomy and partial gastrectomy with wall thickening of the gastric remnant or reconstructed pouch. Free fluid was seen throughout the abdomen and pelvis and a well-distended gallbladder without evidence of biliary dilatation was seen. Uterus was absent consistent with the patient's prior hysterectomy and she also had appendectomy in the past. S/p laparoscopic, converted to open exploration with lysis of adhesions and performance of palliative diverting loop ileostomy and abdominal lavage with findings of widespread stage 4 gastric cancer with malignant obstruction. Final pathology showed metastatic gastric cancer on specimen sent from mesenteric lining peritoneum. N/v POD 3, but ostomy productive again POD 4. CT showed fluid and air in abd (expected) with ? abscess formation in pelvis. Patient kept in house. COMORBIDITIES: 1. Complete ( malignant) bowel obstruction from stage IV gastric cancer spread ; s/p laparoscopic, converted to open exploration with lysis of adhesions and performance of palliative diverting loop ileostomy and abdominal lavage 09/29/16 with findings of widespread stage 4 gastric cancer with malignant obstruction. 2. Gastric cancer stage III ([id number]) lymph nodes positive; + LVI; + PNI; initially s/p diagnostic laparoscopy with peritoneal washings at [facility] (Dr. Nisreen Baker) with thought of ruling out metastatic disease (which was not present) and neoadjuvant therapy, but patient represented with symptoms enough that Dr. Baker did not believe patient could tolerate neoadjuvant approach and therefore took her back on 11/19/15 and performed a subtotal gastrectomy with D2 lymphadenectomy. S/p systemic chemotherapy (FOLFOX completed 4 cycles 02/06/16) as well as radiation therapy with concurrent continuous infusional 5-FU 03/03/16, with patient reporting most recent CT scan showing a mass near the area of the resection and plan for followup CT in September prior to being admitted to [facility] with the above symptoms. 3. Previous hysterectomy with oophorectomy 4. Previous appendectomy. 5. Degenerative changes of lumbar spine. 6. Atherosclerotic vascular calcifications. 7. Simple cyst of lower pole of right kidney. 8. Peptic ulcer disease. 9. Reported history of inflammatory bowel syndrome. 10. Anxiety 11. HTN 12. Osteoarthritis 13. History of vertigo 14. Sister with breast cancer (dx at age 45; at age 50); mother in 1972 in the [facility] from pancreatic disease at age 46 (? cancer); maternal grandmother uterine cancer in her 70's; maternal uncle with ? oral ulcer disease (? malignancy) 15. Former smoker (quit 15-20 yrs ago) 16. History of dumping syndrome after gastrectomy. Subjective: No major events or complaints; no major abd pain today and under control with medications; no n/v/d; no sob or cp; + air and stool in the bag; + activity Objective: Vitals: See below Exam: GENERAL: On exam, the patient was laying in bed and appeared to be comfortable and in no acute distress. ABDOMEN: Soft, nontender and nondistended. Incisions c/d/i w/o obvious e/e/d/h. Ostomy bag with air and small amount of stool. There are no peritoneal signs or guarding. SKIN: Skin appears to be pink and feels warm to touch. NEUROLOGIC: Patient is awake, alert, and follows commands appropriately. Exam/Review of Systems Vital Signs Vitals Vital Signs Date Time Temp Pulse Resp B/P Pulse Ox O2 Delivery O2 Flow Rate FiO2 10/05/16 08:20 98.4 75 18 136/77 98 Intake and Output 10/04/16 10/04/16 10/05/16 15:00 23:00 07:00 Intake Total 1017 ml 560 ml Output Total 200 ml 150 ml Balance 817 ml 410 ml Results Result Diagram: 10/05/16 0525 10/05/16 0525 JARRELL LAMBERT M.D. Oct 05, 2016 16:41
--- NOTE | 2016-10-05 19:20 | PN ---
DATE: 10/05/2016 SUBJECTIVE: The patient is awake, alert, has been able to eat regular diet, and has very mild lower abdominal pain after eating. OBJECTIVE: VITAL SIGNS: Temperature 98.4, blood pressure 136/77, pulse of 75, respiration rate 18, O2 saturati on 98% on room air. HEENT: Pupils equally round, reactive to light. Oropharynx clear. LUNGS: Clear to auscultation. CARDIAC: Regular rate and rhythm. Normal S1, S2. ABDOMEN: Active bowel sounds. Left ileostomy bag intact. EXTREMITIES: No clubbing, cyanosis, or edema. LABORATORY DATA: WBC 6.9, hemoglobin 10.0, hematocrit 30.8, platelet count 271. Sodium 138, potass ium 3.6, BUN 16, creatinine 0.47, glucose 89. Magnesium 1.6, calcium 8.4, phosphorus 4.0. Total pr otein 5.6 and albumin is 2.3. ASSESSMENT AND PLAN: 1. Small-bowel obstruction status post palliative ileostomy. The patient appears to be stabilizing after surgery. She did receive 2 units of packed red blood cells for decreased H and H the day aft er surgery. Her H and H has been stable for the past couple days. Will recheck in the a.m. and, if stable, the patient should be okay for discharge to home with home health followup. 2. Malnutrition. The patient and family have been instructed on nutritional supplements. I will g adrián her 1 dose of magnesium IV prior to discharge since oral magnesium might increase dumping syndro me symptoms. 3. Hypertension. Stable now that patient is back on Losartan. 4. Stomach cancer. The patient has an appointment for followup with oncologist at [facility] on . Dictated By: KOBY FRANCO MD DP/NTS Conf#: [id number] DID#: [id number] CC: NÉSTOR CUMMINS MD;*End*
[2016-10-05 19:38] VITALS: BP 159/74; RESP 18
[2016-10-06] MEDS: METOCLOPRAMIDE 10 MG INJ IV SCH ×2 (05:28→13:45)
[2016-10-06] MEDS: PIPER-TAZO 3.375 GM IV (PMX) 100 ML IVPB SCH ×3 (05:29→17:08)
--- NOTE | 2016-10-06 08:02 | PN ---
Date/Time of Note Date/Time of Note DATE: 10/06/16 TIME: 08:01 Assessment/Plan Lines/Catheters IV Catheter Type (from Nrs): PICC Line Lay[place] in Place (from Nrs): No Assessment/Plan Assessment/Plan [facility] Progress Note Date of Service: 10/06/16 Today's Impression & Plan: Overall stable and improved. Ostomy productive and abd appears benign. No indication for acute surgical intervention. Ok to d/c today from my standpoint. Answered questions to the best my ability. With above assessment, I've recommended the following for today: 1. D/c home when ok by other MD's and providers 2. Please include the following in patient's d/c instructions: Please call [phone] if any of fever, nausea, vomiting, discharge from wound , wound redness, increase or sudden pain, blood in stool or vomit, or any other unusual signs or symptoms. Also, please call the same number in a few days to schedule an appointment for your follow up visit. Patient may remove dressings tomorrow. Showers OK starting tomorrow. No swimming , hot tub or bath for 2 weeks. No lifting more than 25 lbs for 8 weeks. Thank you again for your great care of this very pleasant patient and wonderful family. If there are any questions, please feel free to call me at [phone]. TOTAL VISIT TIME: 20 minutes of which more than half was spent in [id number] discussion with the patient, possibly including family, as well as coordination of care between multiple physicians and providers. Disclaimer: Inadvertent spelling or grammatical errors are likely due to EHR/ dictation software use and do not reflect on the overall quality of patient care. Updated Clinical Summary: The patient is a very pleasant but unfortunate 66-year-old lady with history of stage III stomach malignancy, status post resection followed by systemic chemotherapy as well as radiation at [facility], who presented to [facility] with bowel obstruction symptoms and CT findings on 2016 showing evidence for distal small-bowel obstruction with transition in the lower pelvis at the level of either a focal mass or a focally thickened distal small bowel wall. There was evidence of gastrectomy and partial gastrectomy with wall thickening of the gastric remnant or reconstructed pouch. Free fluid was seen throughout the abdomen and pelvis and a well-distended gallbladder without evidence of biliary dilatation was seen. Uterus was absent consistent with the patient's prior hysterectomy and she also had appendectomy in the past. S/p laparoscopic, converted to open exploration with lysis of adhesions and performance of palliative diverting loop ileostomy and abdominal lavage with findings of widespread stage 4 gastric cancer with malignant obstruction. Final pathology showed metastatic gastric cancer on specimen sent from mesenteric lining peritoneum. N/v POD 3, but ostomy productive again POD 4. CT showed fluid and air in abd (expected) with ? abscess formation in pelvis. Patient kept in house. COMORBIDITIES: 1. Complete ( malignant) bowel obstruction from stage IV gastric cancer spread ; s/p laparoscopic, converted to open exploration with lysis of adhesions and performance of palliative diverting loop ileostomy and abdominal lavage 09/29/16 with findings of widespread stage 4 gastric cancer with malignant obstruction. 2. Gastric cancer stage III ([id number]) lymph nodes positive; + LVI; + PNI; initially s/p diagnostic laparoscopy with peritoneal washings at [facility] (Dr. Nisreen Baker) with thought of ruling out metastatic disease (which was not present) and neoadjuvant therapy, but patient represented with symptoms enough that Dr. Baker did not believe patient could tolerate neoadjuvant approach and therefore took her back on 11/19/15 and performed a subtotal gastrectomy with D2 lymphadenectomy. S/p systemic chemotherapy (FOLFOX completed 4 cycles 02/06/16) as well as radiation therapy with concurrent continuous infusional 5-FU 03/03/16, with patient reporting most recent CT scan showing a mass near the area of the resection and plan for followup CT in September prior to being admitted to [facility] with the above symptoms. 3. Previous hysterectomy with oophorectomy 4. Previous appendectomy. 5. Degenerative changes of lumbar spine. 6. Atherosclerotic vascular calcifications. 7. Simple cyst of lower pole of right kidney. 8. Peptic ulcer disease. 9. Reported history of inflammatory bowel syndrome. 10. Anxiety 11. HTN 12. Osteoarthritis 13. History of vertigo 14. Sister with breast cancer (dx at age 45; at age 50); mother in 1972 in the [facility] from pancreatic disease at age 46 (? cancer); maternal grandmother uterine cancer in her 70's; maternal uncle with ? oral ulcer disease (? malignancy) 15. Former smoker (quit 15-20 yrs ago) 16. History of dumping syndrome after gastrectomy. Subjective: No major events or complaints; no major abd pain and under control with medications; no n/v/d; no sob or cp; + air and stool in the bag; + activity Objective: Vitals: See below Exam: GENERAL: On exam, the patient was laying in bed and appeared to be comfortable and in no acute distress. ABDOMEN: Soft, nontender and nondistended. Incisions c/d/i w/o obvious e/e/d/h. Ostomy bag with air and small amount of stool. There are no peritoneal signs or guarding. SKIN: Skin appears to be pink and feels warm to touch. NEUROLOGIC: Patient is awake, alert, and follows commands appropriately. Exam/Review of Systems Vital Signs Vitals Vital Signs Date Time Temp Pulse Resp B/P Pulse Ox O2 Delivery O2 Flow Rate FiO2 10/05/16 19:38 98.7 89 18 159/74 98 Intake and Output 10/05/16 10/05/16 10/06/16 15:00 23:00 07:00 Intake Total 1040 ml 500 ml Output Total 300 ml Balance 1040 ml 200 ml Results Result Diagram: 10/05/16 0525 10/05/16 0525 JARRELL LAMBERT M.D. Oct 06, 2016 08:02
[2016-10-06 08:06] VITALS: BP 144/67; RESP 22
[2016-10-06] MEDS: LOSARTAN 50 MG TAB PO SCH (08:30)
[2016-10-06] MEDS: SODIUM CHLORIDE 1 GM TAB PO SCH ×2 (08:30→12:04)
[2016-10-06] MEDS: ENOXAPARIN 40 MG/0.4 ML SYG SC SCH (08:35)
[2016-10-06 17:13] LABS: ADD SCAN DIFF NO
[2016-10-06 17:14] LABS: BASOPHILS % 0.4 % (0.0-2.0); EOSINOPHILS # 0.1 10^3/ul (0.0-0.5); EOSINOPHILS % 0.8 % (0.0-7.0); HEMATOCRIT 29.9 % (37.0-47.0); HEMOGLOBIN 9.9 g/dl (12.0-16.0); LYMPHOCYTES # 0.7 10^3/ul (0.8-2.9); LYMPHOCYTES % 9.1 % (15.0-51.0); MEAN CORPUSCULAR HEMOGLOBIN 29.3 pg (29.0-33.0); MEAN CORPUSCULAR HGB CONC 33.1 g/dl (32.0-37.0); MEAN CORPUSCULAR VOLUME 88.5 fl (82.0-101.0); MEAN PLATELET VOLUME 9.1 fl (7.4-10.4); MONOCYTE # 0.7 10^3/ul (0.3-0.9); MONOCYTES % 9.5 % (0.0-11.0); NEUTROPHILS % 79.5 % (39.0-77.0); PLATELET COUNT 337 10^3/UL (140-415); RED BLOOD COUNT 3.38 10^6/ul (4.20-5.40); RED CELL DISTRIBUTION WIDTH 13.8 % (11.5-14.5); WHITE BLOOD COUNT 7.6 10^3/ul (4.8-10.8)
[2016-10-06] MEDS ORDERED: LOSA50TA6 PO (18:14)
--- NOTE | 2016-10-06 19:07 | DS ---
DATE OF ADMISSION: 09/19/2016 DATE OF DISCHARGE: 10/06/2016 DIAGNOSES: 1. Small-bowel obstruction. 2. Metastatic stomach cancer. 3. Palliative ileostomy. 4. Malnutrition. 5. Hypertension. 6. Post-surgical anemia HOSPITAL COURSE: This 66-year-old Fil[place]ia with history of stomach cancer status post partial gastrectomy, was admitted with progressive small bowel obstruction. She was placed on conservative measures with NG tube suction for several days, but the bowel obstruction did not resolve. The patient then underwent a palliative ileostomy after exploratory laparotomy showed severe adhesion of the small bowel and multiple diffuse metastatic disease in the intestines and mesentery. Postoperatively the patient had a decrease in hemoglobin and hematocrit, requiring transfusions with 2 units of red blood cells. The postop abdominal CT scan shows the recent midline laparotomy and left lower quadrant loop ileostomy as well as evidence of prior distal gastrectomy with anastomosis of the jejunum to the residual stomach. There was small to moderate ascites and diffuse anasarca and pneumoperitoneum consistent with recent surgery. There was a 2.2 x 5.4 x 3.24 cm intraperitoneal fluid collection in the posterior inferior pelvis, possibly an abscess versus loculated fluid within adhesions, as well as some peritoneal enhancement in the anterior abdomen and pelvis that was consistent with peritonitis. The patient was placed on piperacillin/tazobactam, IV antibiotics and monitored for the next several days; however, she did not have fever nor elevated white cell count suggestive of intraabdominal abscess. Her hematocrit also came up to 31 after transfusion and remained stable at around 30, the next several days. The patient was gradually advanced to a regular diet, although she still cannot tolerate a large amount of food at any one time. The patient had been placed on TPN prior to surgery due to the malnutrition as noted by decreased total protein and albumin and prealbumin. On the day of discharge, she had very minimal surgical wound pain, no further abdominal pain with or without eating and her H and H remained stable. The plan was for patient to follow up with her oncologist at [facility] to see if there are any chemotherapeutic options available for her late stage cancer. If [facility] has nothing further to offer her, the patient would like to be strengthened enough so that she can journey to the [facility] where she would like to and be buried. DISPOSITION: The patient is discharged to home in fair condition. FOLLOWUP: The patient will be followed at home by her previous home health agency. She will see the voice network administrator/ oncologist at [facility] on October 08. She will schedule followup appointment with Dr. Michel and myself within 1 to 2 weeks, respectively. Dictated By: KOBY FRANCO MD DP/NTS Conf#: [id number] DID#: [id number] MTDD
== END 2016-10-06 19:20 | disposition home or self-care (01) | DRG 329 ==
LOC: E/R 16:34 → MS2 09-19 01:29
PROVIDERS: ADMIT Internal Medicine; ATTEND Internal Medicine
PROC: 3E0336Z Introduction of Nutritional Substance into Peripheral Vein, Percutaneous Approach (ICD-10-PCS; 2016-09-27)
PROC: 0DN80ZZ Release Small Intestine, Open Approach (ICD-10-PCS; 2016-09-29)
PROC: 0D1B0Z4 Bypass Ileum to Cutaneous, Open Approach (ICD-10-PCS; principal; 2016-09-29 07:30)
PROC: 02HV33Z Insertion of Infusion Device into Superior Vena Cava, Percutaneous Approach (ICD-10-PCS; 2016-09-30)
PROC: B548ZZA Ultrasonography of Superior Vena Cava, Guidance (ICD-10-PCS; 2016-09-30)
PROC: 30233N1 Transfusion of Nonautologous Red Blood Cells into Peripheral Vein, Percutaneous Approach (ICD-10-PCS; 2016-10-02)
DX: C16.9 Malignant neoplasm of stomach, unspecified (principal); E43 Unspecified severe protein-calorie malnutrition; K65.9 Peritonitis, unspecified; C78.80 Secondary malignant neoplasm of unspecified digestive organ; C78.6 Secondary malignant neoplasm of retroperitoneum and peritoneum; R18.8 Other ascites; E87.1 Hypo-osmolality and hyponatremia; Z68.1 Body mass index [BMI] 19.9 or less, adult; D50.9 Iron deficiency anemia, unspecified; E87.6 Hypokalemia; Z90.3 Acquired absence of stomach [part of]; Z92.21 Personal history of antineoplastic chemotherapy; I10 Essential (primary) hypertension; R01.1 Cardiac murmur, unspecified; K27.9 Peptic ulcer, site unspecified, unspecified as acute or chronic, without hemorrhage or perforation; N28.1 Cyst of kidney, acquired; I70.90 Unspecified atherosclerosis; Z87.891 Personal history of nicotine dependence; Z92.3 Personal history of irradiation; Z90.710 Acquired absence of both cervix and uterus; Z90.722 Acquired absence of ovaries, bilateral; F41.9 Anxiety disorder, unspecified; R50.9 Fever, unspecified; R42 Dizziness and giddiness; Z53.31 Laparoscopic surgical procedure converted to open procedure
CPT/HCPCS: 36415; 36430; 36569; 71010; 74177; 74178; 76937; 80048; 80053; 81003; 82607; 82746; 82962; 83540; 83605; 83690; 83735; 83880; 84100; 84134; 84300; 84478; 85025; 85610; 85651; 85730; 86850; 86900; 86901; 86920; 87086; 88305; 88341; 88342; 93005; 96374; 96375; 97116; 97162; 97530; C1769; J0330; J0690; J1170; J1200; J1650; J2270; J2370; J2405; J2543; J2710; J2765; J2795; J3010; J3480; J7042; P9016; Q9967

== ENCOUNTER 2016-10-11 16:32 | Inpatient (IN) | payer BC, MEDICARE ==
[~2016-10-11] VITALS: Ht 157.5 cm; Wt 46.8 kg
[~2016-10-11 16:32] MED LIST changes: +CHOL100062 PO; +CYAN100080 PO; -LEVO750T25 PO; +MULTI PO; -ONDA8TAB9 PO
[2016-10-11] MEDS ORDERED: morphine 4 MG/ML VIAL IV STA (17:12)
[2016-10-11] MEDS ORDERED: ONDANSETRON 4 MG INJ IV STA (17:12)
[2016-10-11] MEDS ORDERED: SOD CHLORIDE 0.9% 500 ML IV STA (17:12)
[2016-10-11] MEDS ORDERED: BARIUM SULF 2% 450 ML BTL (BERRY SMOOTHIE) PO STA (17:12)
[2016-10-11] MEDS ORDERED: LOSA50TA6 PO (17:17)
[2016-10-11] MEDS ORDERED: DICLOFENAC SODIUM 37.5 MG/ML VIAL IV STA (17:34)
[2016-10-11 17:53] LABS: ADD SCAN DIFF NO
[2016-10-11 17:54] LABS: BASOPHILS % 0.4 % (0.0-2.0); EOSINOPHILS % 0.2 % (0.0-7.0); HEMOGLOBIN 9.5 g/dl (12.0-16.0); LYMPHOCYTES % 10.6 % (15.0-51.0); MEAN CORPUSCULAR HEMOGLOBIN 28.3 pg (29.0-33.0); MEAN CORPUSCULAR HGB CONC 31.7 g/dl (32.0-37.0); MEAN CORPUSCULAR VOLUME 89.3 fl (82.0-101.0); MEAN PLATELET VOLUME 9.1 fl (7.4-10.4); MONOCYTE # 0.6 10^3/ul (0.3-0.9); MONOCYTES % 6.7 % (0.0-11.0); NEUTROPHIL # 7.8 10^3/ul (1.6-7.5); NEUTROPHILS % 81.9 % (39.0-77.0); PLATELET COUNT 394 10^3/UL (140-415); RED BLOOD COUNT 3.36 10^6/ul (4.20-5.40); RED CELL DISTRIBUTION WIDTH 13.9 % (11.5-14.5); WHITE BLOOD COUNT 9.6 10^3/ul (4.8-10.8)
--- NOTE | 2016-10-11 17:58 | RADRPT ---
PROCEDURE: XR Chest. CLINICAL INDICATION: Abdominal pain TECHNIQUE: Anterior chest x-ray. COMPARISON: 09/30/2016 FINDINGS: Right-sided Port-A-Cath catheter and left-sided PICC line demonstrates stable and satisfactory posit ion. The lungs are clear. No pleural effusion identified. There is no evidence of pneumothorax. There is atherosclerotic calcification of the aorta. The cardiomediastinal silhouette is unremarkab le. The soft tissues are normal. No free air under the diaphragm. Osseous structures are unremarkable. IMPRESSION: 1. No acute disease is seen in the chest. 2. No evidence of bowel perforation. 3. Atherosclerotic calcification of the aorta. RPTAT: QQ .Gavino Hemphill MD, MD Date Time Electronically viewed and signed by .Gavino Hemphill MD, on 10/11/2016 17:58 .M/
[2016-10-11 18:09] LABS: ALBUMIN 2.9 g/dl (3.3-4.9); ALBUMIN/GLOBULIN RATIO 0.74; BILIRUBIN,INDIRECT 0.2 mg/dl (0-1.1); BILIRUBIN,TOTAL 0.2 mg/dl (0.2-1.3); CALCIUM 8.5 mg/dl (8.4-10.2); CREATININE 0.41 mg/dl (0.44-1.00); POTASSIUM 3.5 mmol/L (3.5-5.1); TOTAL PROTEIN 6.8 g/dl (6.1-8.1)
[2016-10-11 18:09] LABS: ADD UMIC YES; URINE BILIRUBIN (Dip) NEGATIVE (NEGATIVE); URINE BLOOD (Dip) TRACE (NEGATIVE); URINE COLOR LT. YELLOW (YELLOW); URINE GLUCOSE (Dip) NEGATIVE (NEGATIVE); URINE KETONES (Dip) NEGATIVE (NEGATIVE); URINE LEUKOCYTE ESTERASE (Dip) NEGATIVE (NEGATIVE); URINE NITRITE (Dip) NEGATIVE (NEGATIVE); URINE TOTAL PROTEIN (Dip) NEGATIVE (NEGATIVE); URINE UROBILINOGEN (Dip) 0.2 E.U./dL (0.1-1.0)
[2016-10-11 18:25] LABS: BACTERIA,URINE FEW; SQUAMOUS EPITHELIAL CELL,UR FEW; URINE RBCS 0-2 /HPF (0)
[2016-10-11] MEDS ORDERED: SOD CHLORIDE 0.9% 100 ML ONE (19:05)
[2016-10-11] MEDS ORDERED: IODIXANOL LOCM 100 ML BTL ONE (19:05)
[2016-10-11 20:30] VITALS: TEMP 97.6
--- NOTE | 2016-10-11 21:07 | RADRPT ---
PROCEDURE: CT Abdomen and Pelvis with contrast. CLINICAL INDICATION: Abdominal pain, vomiting. TECHNIQUE: A CT scan of the abdomen and pelvis was performed with intravenous contrast. The patie nt was scanned following the uncomplicated intravenous administration of 100 cc of Visipaque 320. C oronal and sagittal reformatted images were obtained from the axial source images. Images were revie wed on a high-resolution PACS workstation. CTDIvol: 4.43 mGy. DLP: 226.09 mGy-cm. One or more of the following dose reduction techniques were used: - Automated exposure control. - Adjustment of the mA and/or kV according to patient size. - Use of iterative reconstruction technique. COMPARISON: 10/02/2016 FINDINGS: There are trace bilateral pleural effusions, left larger than right, not significantly changed. Mil d bilateral lower lobe atelectasis is also not significantly changed. There is a small to moderate volume of ascites and diffuse anasarca, not significantly changed. Thi s limits evaluation for intra-abdominal inflammation and masses. The previously noted pneumoperitone um and extraperitoneal pelvic air is no longer evident. The patient is again noted to be status post recent midline abdominopelvic laparotomy, with skin jim still seen along the incision site. The re is diffuse peritoneal enhancement in the abdomen and pelvis, slightly increased since the prior e xamination. The rim enhancing intraperitoneal fluid collection previously seen in the posterior infe rior pelvis is decreased in size, now measuring 0.7 x 3.4 cm x 2.0 cm. Infiltration of the presacral fat is unchanged. The patient status post prior distal gastrectomy with anastomosis of the jejunum to the residual sto mach. The afferent is normal in caliber. The proximal efferent small bowel loop dilated up to 4.4 cm , not significantly changed. There is abrupt transition to thick-walled jejunum in the anterior left upper quadrant, nonspecific. The patient is status post recent left lower quadrant loop ileostomy. A dilated, thick-walled loop of distal ileum measures up to 3.5 cm in diameter and contains fecaliz ed contents. There may be obstruction of this loop in the inferior right pelvis. The colon is relat ively underdistended, limiting evaluation for colonic wall thickening. The appendix is not identifie d. The liver is unremarkable. The gallbladder is contracted. The common bile duct is not dilated. The spleen is not enlarged. The pancreas is atrophic. The adrenal glands are unremarkable. The kidneys are normal in size. There is no perinephric fat stranding. No hydronephrosis is seen. Th ere is a 1.4 cm right renal cyst. The urinary bladder is unremarkable. The patient is status post hy sterectomy. No adnexal mass is seen. No lymphadenopathy is identified. There are moderate arterial calcifications. No suspicious osseous lesion is idenitified. IMPRESSION: 1. Status post recent midline abdominopelvic laparotomy and left lower quadrant loop ileostomy. 2. Evidence of prior distal gastrectomy with anastomosis of the jejunum to the residual stomach. The re is dilatation proximal efferent small bowel loop (4.4 cm), not significantly changed. There is a brupt transition to thick-walled jejunum in the anterior left upper quadrant, nonspecific. This coul d be further evaluated with an upper GI small bowel follow-through examination if clinically warrant ed. 3. Dilated, thick-walled loop of distal ileum measuring up to 3.5 cm in diameter and containing fec alized contents. There may be obstruction of this bowel loop in the inferior right pelvis. This vivienne ht also represent an ischemic, inflammatory, infectious enteritis. This could be further evaluated with a small bowel follow-through examination if clinically warranted. 4. Small to moderate volume of ascites and diffuse anasarca, limiting evaluation for intraperitonea l inflammation and masses. 5. Diffuse peritoneal enhancement abdomen and pelvis, slightly more prominent than in the prior exam ination, consistent with peritonitis. 6. Decreased size of a rim enhancing intraperitoneal fluid collection in the posterior inferior pelv is, possibly an abscess versus loculated fluid within adhesions. 7. Status post hysterectomy. 8. Moderate atherosclerotic arterial calcifications. 9. Trace bilateral pleural effusions, not significantly changed. RPTAT: HTAR .Morteza Parish MD, Date Time Electronically viewed and signed by .Morteza Parish MD, on 10/11/2016 21:06 .R/
[2016-10-11] MEDS ORDERED: SOD CHLORIDE 0.9% 1,000 ML IV SCH (22:20)
--- NOTE | 2016-10-11 22:26 | ERA ---
ER Documentation Chief Complaint Date/Time DATE: 10/11/16 TIME: 22:23 Chief Complaint 6/10 abd pain and fever x 5 days after CA surgery last week HPI This is a unfortunate 66-year-old female with a history of gastric cancer with metastasis who recently underwent a partial gastrectomy with diversion. The patient has been calm complaining of low-grade temperature 100 201 over the past day and a half with multiple episodes of nausea vomiting nonbilious nonbloody. The patient has an ileostomy with nonbloody diarrhea and having good output. She is complaining of some diffuse abdominal pain mostly located in the upper abdomen. No back pain no dysuria no cough. ROS All systems reviewed and are negative except as per history of present illness. Medications Home Meds Reported Medications Losartan Potassium* (Losartan Potassium*) 50 Mg Tablet, 50 MG PO DAILY, TAB 10/11/16 Cholecalciferol* (Vitamin D3*) Unknown Strength Tablet, UNIT PO DAILY, TAB 09/18/16 Cyanocobalamin* (Vitamin B-12*) 1,000 Mcg Tablet.sa, 1000 MCG PO DAILY, TAB 09/18/16 Multivitamins* (Theragran*) 1 Tab Tab, 1 TAB PO DAILY, TAB 09/18/16 Discontinued Reported Medications Peppermint Oil (Ibgard) 90 Mg Capdr...er, 90 MG PO DAILY Y for PRN, CAP 09/18/16 Discontinued Scripts Losartan Potassium* (Losartan Potassium*) 50 Mg Tablet, 50 MG PO DAILY for 30 Days, #30 TAB Prov:KOBY FRANCO MD 10/06/16 Allergies Allergies: Coded Allergies: No Known Allergy (Unverified , 10/11/16) PMhx/Soc History of Surgery: Yes (hysterectomy, bilateral knee sx, gastrectomy, colostomy) Anesthesia Reaction: No Hx Neurological Disorder: No Hx Respiratory Disorders: No Hx Cardiac Disorders: No (HTN) Hx Psychiatric Problems: No Hx Miscellaneous Medical Probl: Yes (gastric cancer w/ chemo/radiation tx, L/S degen changes, IBS, anxiety, OA) Hx Alcohol Use: No Hx Substance Use: No Hx Tobacco Use: Yes Smoking Status: Current every day smoker FmHx Family History: No coronary disease Physical Exam Vitals Vital Signs Date Time Temp Pulse Resp B/P Pulse Ox O2 Delivery O2 Flow Rate FiO2 10/11/16 20:30 97.6 78 16 144/82 97 Room Air 10/11/16 18:30 97.6 86 16 134/88 97 Room Air 10/11/16 16:53 84 16 138/85 97 Room Air 10/11/16 16:33 97.6 91 20 154/76 97 Physical Exam Const: Well-developed, cachectic Head: Atraumatic, normocephalic Eyes: Normal Conjunctiva, PERRLA, EOMI, normal sclera, no nystagmus ENT: Normal External Ears, Nose and Mouth, moist mucus membranes. Neck: Full range of motion. No meningismus, no lymphadenopathy. Resp: Clear to auscultation bilaterally, no wheezing, rhonchi, rales Cardio: Regular rate and rhythm, no murmurs, S1 S2 present Abd: Soft, diffuse tenderness moderate in the upper and mild in the lower abdomen, ileostomy is in place with stool in the bag, jim are in the wound that is clean dry and intact, non distended. Normal bowel sounds, no guarding or rebound, no pulsitile abdominal masses or bruits Skin: No petechiae or rashes, no ecchymosis , no maculopapular rash Back: No midline or flank tenderness Ext: No cyanosis, or edema, FROM x 4, normal inspection, neurovascularly intact x 4 Neur: Awake and alert, STR 5/5 x 4, sensation intact x 4, no focal findings, cerebellum intact Psych: Normal Mood and Affect Result Diagram: 10/11/16 1725 10/11/16 1725 Results 24 hrs Laboratory Tests Test 10/11/16 16:50 10/11/16 17:25 Urine Color LT. YELLOW Urine Clarity CLEAR Urine pH 6.5 Urine Specific [place] 1.010 Urine Ketones NEGATIVE Urine Nitrite NEGATIVE Urine Bilirubin NEGATIVE Urine Urobilinogen 0.2 E.U./dL Urine Leukocyte Esterase NEGATIVE Urine Microscopic RBC 0-2/HPF Urine Microscopic WBC 2-5/HPF Urine Squamous Epithelial Cells FEW Urine Bacteria FEW Urine Hemoglobin TRACE Urine Glucose NEGATIVE% Urine Total Protein NEGATIVE White Blood Count 9.610^3/ul Red Blood Count 3.3610^6/ul Hemoglobin 9.5g/dl Hematocrit 30.0% Mean Corpuscular Volume 89.3fl Mean Corpuscular Hemoglobin 28.3pg Mean Corpuscular Hemoglobin Concent 31.7g/dl Red Cell Distribution Width 13.9% Platelet Count 25296^3/UL Mean Platelet Volume 9.1fl Neutrophils % 81.9% Lymphocytes % 10.6% Monocytes % 6.7% Eosinophils % 0.2% Basophils % 0.4% Nucleated Red Blood Cells % 0.0/100WBC Neutrophils # 7.810^3/ul Lymphocytes # 1.010^3/ul Monocytes # 0.610^3/ul Eosinophils # 0.010^3/ul Basophils # 0.010^3/ul Nucleated Red Blood Cells # 0.010^3/ul Sodium Level 135mmol/L Potassium Level 3.5mmol/L Chloride Level 101mmol/L Carbon Dioxide Level 28mmol/L Anion Gap 10 Blood Urea Nitrogen 8mg/dl Creatinine 0.41mg/dl Glucose Level 95mg/dl Calcium Level 8.5mg/dl Total Bilirubin 0.2mg/dl Direct Bilirubin 0.00mg/dl Indirect Bilirubin 0.2mg/dl Aspartate Amino Transf (AST/SGOT) 28IU/L Alanine Aminotransferase (ALT/SGPT) 24IU/L Alkaline Phosphatase 153IU/L Total Protein 6.8g/dl Albumin 2.9g/dl Globulin 3.90g/dl Albumin/Globulin Ratio 0.74 Lipase 11U/L Current Medications Medications (Trade) Dose Ordered Sig/Barbara Route PRN Reason Start Time Stop Time Status Last Admin Dose Admin Sodium Chloride (NS) 500 ml @ 500 mls/hr Q1H STAT IV 10/11/16 17:12 10/11/16 18:11 DC 10/11/16 17:35 Morphine Sulfate (morphine) 4 mg ONCE STAT IV 10/11/16 17:12 10/11/16 17:16 DC Ondansetron HCl (Zofran Inj) 4 mg ONCE STAT IV 10/11/16 17:12 10/11/16 17:16 DC Barium Sulfate (Readi-Cat 2 ( [employer] )) 450 ml ONCE STAT PO 10/11/16 17:12 10/11/16 17:16 DC 10/11/16 17:35 Diclofenac Sodium (Dyloject) 37.5 mg ONCE STAT IV 10/11/16 17:34 10/11/16 17:35 DC IV Flush 10 ml 10 ml STK-MED ONCE .ROUTE 10/11/16 19:05 10/11/16 19:06 DC Sodium Chloride (NS) 100 ml @ ud STK-MED ONCE .ROUTE 10/11/16 19:05 10/11/16 19:06 DC Iodixanol 100 ml 100 ml STK-MED ONCE .ROUTE 10/11/16 19:05 10/11/16 19:06 DC Sodium Chloride (NS) 1,000 ml @ 80 mls/hr [id number] IV 10/11/16 22:20 10/12/16 10:49 Ondansetron HCl (Zofran Inj) 4 mg BRIDGE ORDER PRN IV NAUSEA AND/OR VOMITING 10/11/16 22:30 10/12/16 22:29 Acetaminophen (Tylenol Tab) 650 mg ER BRIDGE PRN PO MILD PAIN/FEVER 10/11/16 22:30 10/12/16 22:29 Procedures/MDM PROCEDURE: CT Abdomen and Pelvis with contrast. CLINICAL INDICATION: Abdominal pain, vomiting. TECHNIQUE: A CT scan of the abdomen and pelvis was performed with intravenous contrast. The patient was scanned following the uncomplicated intravenous administration of 100 cc of Visipaque 320. Coronal and sagittal reformatted images were obtained from the axial source images. Images were reviewed on a high-resolution PACS workstation. CTDIvol: 4.43 mGy. DLP: 226.09 mGy-cm. One or more of the following dose reduction techniques were used: - Automated exposure control. - Adjustment of the mA and/or kV according to patient size. - Use of iterative reconstruction technique. COMPARISON: 10/02/2016 FINDINGS: There are trace bilateral pleural effusions, left larger than right, not significantly changed. Mild bilateral lower lobe atelectasis is also not significantly changed. There is a small to moderate volume of ascites and diffuse anasarca, not significantly changed. This limits evaluation for intra-abdominal inflammation and masses. The previously noted pneumoperitoneum and extraperitoneal pelvic air is no longer evident. The patient is again noted to be status post recent midline abdominopelvic laparotomy, with skin jim still seen along the incision site. There is diffuse peritoneal enhancement in the abdomen and pelvis , slightly increased since the prior examination. The rim enhancing intraperitoneal fluid collection previously seen in the posterior inferior pelvis is decreased in size, now measuring 0.7 x 3.4 cm x 2.0 cm. Infiltration of the presacral fat is unchanged. The patient status post prior distal gastrectomy with anastomosis of the jejunum to the residual stomach. The afferent is normal in caliber. The proximal efferent small bowel loop dilated up to 4.4 cm, not significantly changed. There is abrupt transition to thick-walled jejunum in the anterior left upper quadrant, nonspecific. The patient is status post recent left lower quadrant loop ileostomy. A dilated, thick-walled loop of distal ileum measures up to 3.5 cm in diameter and contains fecalized contents. There may be obstruction of this loop in the inferior right pelvis. The colon is relatively underdistended, limiting evaluation for colonic wall thickening. The appendix is not identified. The liver is unremarkable. The gallbladder is contracted. The common bile duct is not dilated. The spleen is not enlarged. The pancreas is atrophic. The adrenal glands are unremarkable. The kidneys are normal in size. There is no perinephric fat stranding. No hydronephrosis is seen. There is a 1.4 cm right renal cyst. The urinary bladder is unremarkable. The patient is status post hysterectomy. No adnexal mass is seen. No lymphadenopathy is identified. There are moderate arterial calcifications. No suspicious osseous lesion is idenitified. IMPRESSION: 1. Status post recent midline abdominopelvic laparotomy and left lower quadrant loop ileostomy. 2. Evidence of prior distal gastrectomy with anastomosis of the jejunum to the residual stomach. There is dilatation proximal efferent small bowel loop (4.4 cm ), not significantly changed. There is abrupt transition to thick-walled jejunum in the anterior left upper quadrant, nonspecific. This could be further evaluated with an upper GI small bowel follow-through examination if clinically warranted. 3. Dilated, thick-walled loop of distal ileum measuring up to 3.5 cm in diameter and containing fecalized contents. There may be obstruction of this bowel loop in the inferior right pelvis. This might also represent an ischemic , inflammatory, infectious enteritis. This could be further evaluated with a small bowel follow-through examination if clinically warranted. 4. Small to moderate volume of ascites and diffuse anasarca, limiting evaluation for intraperitoneal inflammation and masses. 5. Diffuse peritoneal enhancement abdomen and pelvis, slightly more prominent than in the prior examination, consistent with peritonitis. 6. Decreased size of a rim enhancing intraperitoneal fluid collection in the posterior inferior pelvis, possibly an abscess versus loculated fluid within adhesions. 7. Status post hysterectomy. 8. Moderate atherosclerotic arterial calcifications. 9. Trace bilateral pleural effusions, not significantly changed. RPTAT: HTAR .Morteza Parish MD, Date Time Electronically viewed and signed by .Morteza Parish MD, on 10/11/2016 21:06 .R/ CC: VANESSA MICHELLE DO PROCEDURE: XR Chest. CLINICAL INDICATION: Abdominal pain TECHNIQUE: Anterior chest x-ray. COMPARISON: 09/30/2016 FINDINGS: Right-sided Port-A-Cath catheter and left-sided PICC line demonstrates stable and satisfactory position. The lungs are clear. No pleural effusion identified. There is no evidence of pneumothorax. There is atherosclerotic calcification of the aorta. The cardiomediastinal silhouette is unremarkable. The soft tissues are normal. No free air under the diaphragm. Osseous structures are unremarkable. IMPRESSION: 1. No acute disease is seen in the chest. 2. No evidence of bowel perforation. 3. Atherosclerotic calcification of the aorta. RPTAT: QQ .Gavino Hemphill MD, MD Date Time Electronically viewed and signed by .Gavino Hemphill MD, MD on 10/11/2016 17: 58 .M/ CC: VANESSA MICHELLE DO Discussed the case with Dr. conte the patient's surgeon. There is nothing surgically to do for this case at this time. Unfortunately patient has a poor prognosis. Spoke with the patient's primary care physician Dr. Franco, we will admit for symptomatic control for nausea vomiting. Fever may be from the peritonitis she is had blood cultures and bank and cefepime given. She will be admitted and talked to the family to attempt to place the patient on hospice Departure Diagnosis: Primary Impression: Intractable vomiting Qualified Code: R11.2 - Intractable vomiting with nausea, unspecified vomiting type Additional Impression: Peritonitis Condition: Stable VANESSA MICHELLE DO Oct 11, 2016 22:26
[2016-10-11] MEDS ORDERED: CEFEPIME 1GM/50 ML (PMX) 50 ML IVPB ONE (22:30)
[2016-10-11] MEDS ORDERED: VANCOMYCIN 1 GM (PMX) 250 ML IVPB SCH (22:30)
[2016-10-11] MEDS ORDERED: ACETAMINOPHEN 325 MG TAB PO PRN (22:30)
[2016-10-11] MEDS ORDERED: ONDANSETRON 4 MG INJ IV PRN (22:30)
[2016-10-11 23:00] VITALS: BP 152/73; PULSE 78; RESP 18
[2016-10-11 23:10] VITALS: Ht 157.5 cm; Wt 46.8 kg
[2016-10-12] MEDS ORDERED: morphine 4 MG/ML VIAL IV PRN
[2016-10-12] MEDS ORDERED: ONDANSETRON 4 MG INJ IV PRN
[2016-10-12] MEDS: D5-NS + KCL 20 MEQ 1,000 ML IV SCH ×2 (01:58→17:25)
[2016-10-12 05:14] VITALS: BP 147/70; PULSE 84
[2016-10-12 06:04] LABS: ADD SCAN DIFF NO
[2016-10-12 06:13] LABS: BASOPHILS % 0.3 % (0.0-2.0); EOSINOPHILS % 0.3 % (0.0-7.0); HEMATOCRIT 28.7 % (37.0-47.0); HEMOGLOBIN 9.2 g/dl (12.0-16.0); LYMPHOCYTES # 0.7 10^3/ul (0.8-2.9); LYMPHOCYTES % 7.8 % (15.0-51.0); MEAN CORPUSCULAR HEMOGLOBIN 28.8 pg (29.0-33.0); MEAN CORPUSCULAR HGB CONC 32.1 g/dl (32.0-37.0); MEAN PLATELET VOLUME 8.9 fl (7.4-10.4); MONOCYTE # 0.6 10^3/ul (0.3-0.9); MONOCYTES % 5.9 % (0.0-11.0); NEUTROPHILS % 85.3 % (39.0-77.0); PLATELET COUNT 385 10^3/UL (140-415); RED BLOOD COUNT 3.19 10^6/ul (4.20-5.40); RED CELL DISTRIBUTION WIDTH 13.8 % (11.5-14.5); WHITE BLOOD COUNT 9.4 10^3/ul (4.8-10.8)
[2016-10-12 06:26] LABS: CALCIUM 8.1 mg/dl (8.4-10.2); CREATININE 0.38 mg/dl (0.44-1.00); POTASSIUM 3.8 mmol/L (3.5-5.1)
[2016-10-12 07:58] VITALS: BP 132/69; RESP 18
[2016-10-12] MEDS: CEFEPIME 1GM/50 ML (PMX) 50 ML IVPB SCH ×2 (09:29→20:16)
[2016-10-12 11:18] VITALS: BP 145/79; PULSE 65; RESP 18
--- NOTE | 2016-10-12 14:16 | CONS ---
Date/Time of Note Date/Time of Note DATE: 10/12/16 TIME: 13:49 Assessment/Plan Assessment/Plan Additional Assessment/Plan [facility] SUBSEQUENT INPATIENT CONSULTATION NOTE DATE OF CONSULTATION: 10/12/2016 PLACE OF SERVICE: [facility], 6th floor ASSESSMENT AND PLAN: A very pleasant but unfortunate 66-year-old lady, well- known to me from prior admission [facility] 2017 with malignant obstruction due to metastatic stage 4 gastric cancer, admitted with nausea and vomiting and abdominal pain. Latest CT shows expected findings. No indication for acute surgical intervention. Unfortunately, this is a terminal issue with grim prognosis. My recommendation are for f/u with Dr. Morataya at [facility] and to maximize quality of life. Discussed with patient and family and answered all questions. I believe that the patient understands and agrees with the plan. With above assessment, I recommend the followin. Small bowel follow through 2. Resumption of oral intake after above shows patent proximal limb 3. F/u with Dr. Morataya 4. Strongly recommend supportive care consultation with Dr. Nelson Thank you again for allowing us to participate in the care of this very pleasant lady and I am certain her wonderful family. If there are any questions , please feel free to call me at [phone]. TOTAL VISIT TIME: 45 minutes of which more than half was spent in [id number] discussion with the patient as well as coordination of care between multiple physicians and providers. UPDATED CLINICAL SUMMARY: The patient is a very pleasant but unfortunate 66- year-old lady with history of stage III stomach malignancy, status post resection followed by systemic chemotherapy as well as radiation at [facility] , who presented to [facility] with bowel obstruction symptoms and CT findings on 09/19/2016 showing evidence for distal small-bowel obstruction with transition in the lower pelvis at the level of either a focal mass or a focally thickened distal small bowel wall. There was evidence of gastrectomy and partial gastrectomy with wall thickening of the gastric remnant or reconstructed pouch. Free fluid was seen throughout the abdomen and pelvis and a well-distended gallbladder without evidence of biliary dilatation was seen. Uterus was absent consistent with the patient's prior hysterectomy and she also had appendectomy in the past. S/p laparoscopic, converted to open exploration with lysis of adhesions and performance of palliative diverting loop ileostomy and abdominal lavage on 09/29/16. COMORBIDITIES: 1. Complete ( malignant) bowel obstruction from stage IV gastric cancer spread ; s/p laparoscopic, converted to open exploration with lysis of adhesions and performance of palliative diverting loop ileostomy and abdominal lavage 09/29/16 with findings of widespread stage 4 gastric cancer with malignant obstruction. 2. Gastric cancer stage III ([id number]) lymph nodes positive; + LVI; + PNI; initially s/p diagnostic laparoscopy with peritoneal washings at [facility] (Dr. Nisreen Baker) with thought of ruling out metastatic disease (which was not present) and neoadjuvant therapy, but patient represented with symptoms enough that Dr. Baker did not believe patient could tolerate neoadjuvant approach and therefore took her back on 11/19/15 and performed a subtotal gastrectomy with D2 lymphadenectomy. S/p systemic chemotherapy (FOLFOX completed 4 cycles 02/06/16) as well as radiation therapy with concurrent continuous infusional 5-FU 03/03/16, with patient reporting most recent CT scan showing a mass near the area of the resection and plan for followup CT in September prior to being admitted to [facility] with the above symptoms. 3. Previous hysterectomy with oophorectomy 4. Previous appendectomy. 5. Degenerative changes of lumbar spine. 6. Atherosclerotic vascular calcifications. 7. Simple cyst of lower pole of right kidney. 8. Peptic ulcer disease. 9. Reported history of inflammatory bowel syndrome. 10. Anxiety 11. HTN 12. Osteoarthritis 13. History of vertigo 14. Sister with breast cancer (dx at age 45; at age 50); mother in 1972 in the [facility] from pancreatic disease at age 46 (? cancer); maternal grandmother uterine cancer in her 70's; maternal uncle with ? oral ulcer disease (? malignancy) 15. Former smoker (quit 15-20 yrs ago) 16. History of dumping syndrome after gastrectomy. 17. S/p laparoscopic, converted to open exploration with lysis of adhesions and performance of palliative diverting loop ileostomy and abdominal lavage on . DATE OF ADMISSION: 10/11/2016 HISTORY OF PRESENT ILLNESS: The patient is a very pleasant 66-year-old lady, well-known to me from prior admission [facility] 2016 with malignant obstruction due to metastatic stage 4 gastric cancer, admitted with nausea and vomiting and abdominal pain. Currently feels better. Pain is controlled and mostly discomfort. Temp of 100.1 at home. Ostomy productive at home. No other major complaints. ALLERGIES: NO KNOWN DRUG ALLERGIES. MEDICATIONS: Previously on 1. Vitamin D3. 2. Vitamin B12. 3. Theragran 4. IBgard. Also please see EHR SOCIAL HISTORY: The patient does not report any smoking, drinking, or intravenous drug use. FAMILY HISTORY: No major medical, surgical or oncologic problems reported in the family. REVIEW OF SYSTEMS: Other than the above-mentioned, there are no other pertinent positives or pertinent negatives in a complete 14-point review of systems. PHYSICAL EXAMINATION: GENERAL: The patient appears to be a very pleasant [place] lady of non- descent, appearing stated age, lying in bed comfortably and in no acute distress. BMI is 18.9 (previously 12 September 2016). VITAL SIGNS: AVSS HEENT: Normocephalic and atraumatic. Extraocular muscles and hearing are grossly intact bilaterally and symmetrically. Sclerae are nonicteric. Oral cavity is clear; oral mucosa appeared to be pink and moist. Dentition: fair to poor. NECK: Supple. There is no lymphadenopathy or JVD. There is no submental, submandibular or supraclavicular lymphadenopathy. CHEST: Rises symmetrically with each breath; patient is breathing comfortably. There are no audible wheezes, rales or rhonchi on the gross exam. HEART: Pulse is regular and palpable on the left wrist. Capillary refill was normal. Carotid pulses are palpable bilaterally and symmetrically in the neck. EXTREMITIES: Lower extremities contain no pitting edema around the ankles bilaterally and symmetrically. ABDOMEN: Shows a well-healed midline scar with jim in place from the supraumbilical midline down to the suprapubic area. There is no evidence of erythema, edema, discharge or hernia. There is no evidence of organomegaly, caput medusae, engorged subcutaneous veins or ascites. She has slight amount of distention and slight amount of tenderness to palpation in the lower pelvic region, but no guarding or peritoneal signs. Ostomy pink, viable and productive with enteric contents. SKIN: Appears to be pink and feels warm to touch. NEUROLOGIC: Awake, alert, and follows commands appropriately. LABORATORY DATA: Previously in August 2016: White blood cell count 4.5, hemoglobin 9.8, platelets 261. Electrolytes were all normal. CO2 of 31, creatinine 0.62. Total bilirubin 0.3, AST 37, ALT 22, alkaline phosphatase 94, albumin 3.1 after hydration. Lipase less than 10. Urinalysis showed no leukocyte esterase or nitrite positivity. Newest labs reviewed in EHR. IMAGING: CT images were reviewed above. Note that I personally reviewed all the available pertinent images and I agree in general with their overall reported findings. Consultation Date/Type/Reason Admit Date/Time Oct 11, 2016 at 22:21 Initial Consult Date Exam/Review of Systems Vital Signs Vitals Vital Signs Date Time Temp Pulse Resp B/P Pulse Ox O2 Delivery O2 Flow Rate FiO2 10/12/16 11:18 97.7 65 18 145/79 94 Room Air Intake and Output 10/11/16 10/11/16 10/12/16 15:00 23:00 07:00 Intake Total 260 ml Output Total 900 ml Balance -640 ml Results Result Diagram: 10/12/16 0530 10/12/16 0530 Results 24 hrs Laboratory Tests Test 10/11/16 16:50 10/11/16 17:25 10/12/16 05:30 Urine Color LT. YELLOW Urine Clarity CLEAR Urine pH 6.5 Urine Specific [place] 1.010 Urine Ketones NEGATIVE Urine Nitrite NEGATIVE Urine Bilirubin NEGATIVE Urine Urobilinogen 0.2 E.U./dL Urine Leukocyte Esterase NEGATIVE Urine Microscopic RBC 0-2 Urine Microscopic WBC 2-5 Urine Squamous Epithelial Cells FEW Urine Bacteria FEW Urine Hemoglobin TRACE Urine Glucose NEGATIVE Urine Total Protein NEGATIVE White Blood Count 9.6 # 9.4 Red Blood Count 3.36 L 3.19 L Hemoglobin 9.5 L 9.2 L Hematocrit 30.0 L 28.7 L Mean Corpuscular Volume 89.3 90.0 Mean Corpuscular Hemoglobin 28.3 L 28.8 L Mean Corpuscular Hemoglobin Concent 31.7 L 32.1 Red Cell Distribution Width 13.9 13.8 Platelet Count 394 385 Mean Platelet Volume 9.1 8.9 Neutrophils % 81.9 H 85.3 H Lymphocytes % 10.6 L 7.8 L Monocytes % 6.7 5.9 Eosinophils % 0.2 0.3 Basophils % 0.4 0.3 Nucleated Red Blood Cells % 0.0 0.0 Neutrophils # 7.8 H 8.0 H Lymphocytes # 1.0 0.7 L Monocytes # 0.6 0.6 Eosinophils # 0.0 0.0 Basophils # 0.0 0.0 Nucleated Red Blood Cells # 0.0 0.0 Sodium Level 135 135 Potassium Level 3.5 3.8 Chloride Level 101 102 Carbon Dioxide Level 28 29 Anion Gap 10 8 Blood Urea Nitrogen 8 7 Creatinine 0.41 L 0.38 L Glucose Level 95 87 Calcium Level 8.5 8.1 L Total Bilirubin 0.2 Direct Bilirubin 0.00 Indirect Bilirubin 0.2 Aspartate Amino Transf (AST/SGOT) 28 Alanine Aminotransferase (ALT/SGPT) 24 Alkaline Phosphatase 153 H Total Protein 6.8 Albumin 2.9 L Globulin 3.90 H Albumin/Globulin Ratio 0.74 Lipase 11 L Erythrocyte Sedimentation Rate 53 H Medications Medications Current Medications Potassium Chloride/Dextrose/ Sod Cl (D5-NS + KCl 20 Meq) 1,000 ml @ 70 mls/hr [id number] IV Last administered on 10/12/16 01:58; Admin Dose 70 MLS/HR; Start at 00:00 Morphine Sulfate (morphine) 4 mg Q3H PRN IV pain; Start 10/12/16 at 00:00 Ondansetron HCl 4 mg 4 mg Q4H PRN IV NAUSEA AND/OR VOMITING; Start 10/12/16 at 00:00 Cefepime HCl (Maxipime 1gm/50 ml (Pmx)) 50 ml @ 100 mls/hr Q12 IVPB Last administered on 10/12/16 09:29; Admin Dose 100 MLS/HR; Start 10/12/16 at 09:00 JARRELL LAMBERT M.D. Oct 12, 2016 14:16
[2016-10-12] MEDS ORDERED: CLONIDINE 0.1 MG/24 HR PATCH TRANSDERM SCH (17:00)
[2016-10-12] MEDS ORDERED: FENTAnyl PATCH 12 MCG/HR TRANSDERM SCH (19:00)
[2016-10-12 19:33] VITALS: BP 140/73; RESP 20
--- NOTE | 2016-10-12 20:52 | HP ---
DATE OF ADMISSION: 10/11/2016 CHIEF COMPLAINT: Fever, nausea, vomiting, and abdominal pain. HISTORY OF PRESENT ILLNESS: This 66-year-old unfortunate Filipina with history of metastatic stomac h cancer was recently admitted for small-bowel obstruction and found to have diffuse metastatic dise ase in the abdominal cavity. She underwent palliative ileostomy and was discharged to home for foll owup with [facility] oncology department. At [facility], patient was told that she can be start ed on some chemotherapy for life prolongation, but not until the abdominal wound has healed. She wa s given Polk for her pain. A few days after that on the day of admission, the patient started to h ave a low grade fever and nausea in addition to her abdominal pain. The patient thought that it was the diet that she had started eating and was brought into the emergency room. The patient is admit gissell for rule out small-bowel obstruction and for symptom control as well as possible peritonitis. PAST MEDICAL HISTORY: 1. Stomach cancer status post ileostomy, 10/02/2016. 2. Hypertension. 3. Malnutrition. 4. Postsurgical anemia. ALLERGIES: NO KNOWN DRUG ALLERGIES. MEDICATIONS ON ADMISSION: Includes: 1. Polk 10/325. 2. Zofran. 3. Losartan 50 mg p.o. daily. 4. Multivitamins. SOCIAL HISTORY: The patient does not smoke, does not drink alcohol. She lives with her daughter in her own place. She is getting home health care at home 3 times a week. FAMILY HISTORY: Noncontributory. PHYSICAL EXAMINATION: GENERAL: Very thin female who is lying in bed, currently in no acute distress. VITAL SIGNS: Temperature 97.7 currently, blood pressure 145/79, pulse of 65, respiration rate 18, O 2 saturation 94% on room air. HEENT: Pupils equal, round, reactive to light. Anicteric sclerae. Oropharynx clear. LUNGS: Clear to auscultation. CARDIAC: Regular rate and rhythm. ABDOMEN: Left abdominal ileostomy is draining small amount of excrement. The midline incision appe ars to be healing well with intact jim. There is mild diffuse tenderness, especially in the low er quadrants bilaterally. EXTREMITIES: No clubbing, cyanosis, or edema. LABORATORY DATA: WBC 9.4, hemoglobin 9.2, hematocrit 28.7, platelet count 385,000. ESR is 53. Sod ium is 135, potassium 3.8, BUN 7, creatinine 0.38, glucose 87. Calcium 8.1. Liver enzymes are with in normal limits except for decreased albumin of 2.9, elevated alkaline phosphatase of 153, and elev ated globulin of 3.9. The chest x-ray was clear and the abdominal pelvic CT scan shows recent midline abdominal laparotomy and left lower quadrant loop ileostomy. There is evidence of prior distal gastrectomy with anastom osis of the jejunum to the residual stomach. There is dilatation of the proximal efferent small bow el loop that is not significantly changed from previous CT scan. There is an abrupt transition to a thick walled jejunum in the anterior left upper quadrant that is nonspecific and could be further e valuated with an upper GI small bowel follow through. There is also a dilated thick walled loop of distal ileum measuring up to 2.5 cm in diameter containing fecalized contents. There may be obstruc tion of this bowel loop in the anterior right pelvis. Or it might represent an ischemic inflammator y and infectious enteritis. Also could be evaluated with a small bowel follow through. There is sm all to moderate volume of ascites and diffuse anasarca. There is a decrease in size of a previous i ntraperitoneal fluid collection in the posterior inferior pelvis that was consistent with possibly a n abscess versus loculated fluid within adhesions. There is also trace bilateral pleural effusion, not significantly changed. ASSESSMENT AND PLAN: 1. Abdominal pain with nausea and vomiting, may be due to small-bowel obstruction or simply metasta tic disease and side effects from Polk. Will obtain the small bowel follow through to clarify the question of small-bowel obstruction. If this test is negative, I can discharge the patient to home with medications to control her pain and nausea. 2. Possible fever and a history of loculated fluid versus abscess in the abdomen. The patient does not have any other evidence for abscess, including no current fever or leukocytosis. She is curren tly on IV antibiotics for this problem and possible peritonitis. I would probably like to discharge her to home on an oral antibiotic for this possible intra-abdominal infection, but I am not sure if it is indicated or which antibiotic is appropriate. So once she has been shown to have no small-logan wel obstruction. I will consult infectious disease for this issue. 3. Abdominal pain. There is a possibility that the patient's nausea and vomiting may be due to the Polk that was recently given to her on at [facility]. Since her symptoms are intestina l and malabsorption is an issue, I will try her on fentanyl patch at low dose to see if this can con trol her pain better without causing much problem with either intestinal ileus or nausea, vomiting. 4. Nausea and vomiting, currently controlled on Zofran IV. If patient has no small-bowel obstructi on, will switch her to oral Zofran for discharge to home. 5. Hypertension. The patient is mildly hypertensive on no medication at this time. I will conside r giving her transdermal clonidine if the blood pressure continues to rise. Dictated By: KOBY FRANCO MD DP/OH Conf#: [id number] DID#: [id number]
[2016-10-13 05:36] LABS: ADD SCAN DIFF NO
[2016-10-13 06:18] LABS: BASOPHILS % 0.5 % (0.0-2.0); EOSINOPHILS # 0.1 10^3/ul (0.0-0.5); EOSINOPHILS % 0.8 % (0.0-7.0); HEMATOCRIT 27.6 % (37.0-47.0); HEMOGLOBIN 8.9 g/dl (12.0-16.0); LYMPHOCYTES # 0.8 10^3/ul (0.8-2.9); LYMPHOCYTES % 11.7 % (15.0-51.0); MEAN CORPUSCULAR HEMOGLOBIN 29.1 pg (29.0-33.0); MEAN CORPUSCULAR HGB CONC 32.2 g/dl (32.0-37.0); MEAN CORPUSCULAR VOLUME 90.2 fl (82.0-101.0); MEAN PLATELET VOLUME 9.3 fl (7.4-10.4); MONOCYTE # 0.5 10^3/ul (0.3-0.9); MONOCYTES % 7.5 % (0.0-11.0); NEUTROPHIL # 5.3 10^3/ul (1.6-7.5); NEUTROPHILS % 79.3 % (39.0-77.0); PLATELET COUNT 368 10^3/UL (140-415); RED BLOOD COUNT 3.06 10^6/ul (4.20-5.40); RED CELL DISTRIBUTION WIDTH 13.9 % (11.5-14.5); WHITE BLOOD COUNT 6.7 10^3/ul (4.8-10.8)
[2016-10-13] MEDS: D5-NS + KCL 20 MEQ 1,000 ML IV SCH (06:36)
[2016-10-13 07:42] VITALS: BP 147/67; RESP 20
[2016-10-13] MEDS: CEFEPIME 1GM/50 ML (PMX) 50 ML IVPB SCH (08:09)
[2016-10-13] MEDS ORDERED: DIATR MEGLU/DIATRIZOATE SODIUM 120 ML BTL ONE (14:34)
--- NOTE | 2016-10-13 18:28 | PN ---
DATE: 10/13/2016 SUBJECTIVE: Patient reports no nausea or vomiting today, although she did get a dose of Zofran prio r to going down for the small bowel x-rays. She also reports that the fentanyl 25 mcg brought down the pain, so that most of the time she does not have any, and when it does come on it is only mild, so that she did have to call for any pain medications throughout the day and last night. OBJECTIVE: VITAL SIGNS: Temperature 98.7, blood pressure 147/67, pulse 83, respiration rate 20, O2 saturation 98% on pulse oximetry. HEENT: Pupils equally round, reactive to light. Oropharynx clear. LUNGS: Clear to auscultation. CARDIAC: Regular rate and rhythm. ABDOMEN: Active bowel sounds. Ileostomy draining large amount of contrast dye. There is mild diff use abdominal pain, especially in the lower abdomen. EXTREMITIES: No clubbing, cyanosis, or edema at this time. LABORATORY DATA: WBC 6.7, hemoglobin 8.9, hematocrit 27.6, platelet count 368,000. ESR was 53. ASSESSMENT AND PLAN: 1. The small bowel follow through report is pending, but it is evident that the oral contrast the p atient drank has been passed through to her ileostomy and the patient is willing to resume a trial o f mechanical soft diet. If she is able to tolerate the oral diet well, we may be able to discharge her to home tomorrow. If she begins to develop some abdominal pain again, it will give us a chance to adjust the dosage of the fentanyl, and if she has recurrence of nausea and vomiting, we will hav e to try different forms of outpatient antiemetics to see which one would control her symptoms best without having to rely on the gastrointestinal tract. 2. Hypertension. Blood pressure controlled on clonidine patch. 3. Social issues. Patient requests a letter of medical illness so she can give to her sisters in [facility], allowing them to obtain a visa to come visit her. I will try and procure this for h er by tomorrow. Dictated By: KOBY FRANCO MD DP/NTS Conf#: [id number] DID#: [id number]
--- NOTE | 2016-10-13 19:05 | RADRPT ---
PROCEDURE: XR small-bowel follow-through. CLINICAL INDICATION: Abdominal pain, nausea, vomiting. Rule out obstruction. TECHNIQUE: Multiple overhead radiographs of the abdomen were obtained before and after the uncompl icated administration of oral gastrografin contrast. COMPARISON: CT of the abdomen and pelvis dated 10/11/2016. FINDINGS: The nurses aide image demonstrates small amount of air in the gastric remnant, a small amount of gas withi n left abdominopelvic small bowel, and a small amount of gas in the rectum. Midline skin jim ar e seen along the lower abdomen and pelvis. There is a left lower quadrant ileostomy. 10 minutes after administration of Gastrografin, contrast is seen filling the gastric remnant and je junum. At 25 minutes, there has been antegrade propagation of contrast into ileum in the abdominopelvic reg ion, with contrast also seen within the enterostomy bag. At 40 minutes, there is decreased contrast in the small bowel. No dilated bowel loops are identified. The inflamed loop of ileum seen in the prior CT is not eviden t in this examination. IMPRESSION: 1. Status post distal gastrectomy, gastrojejunal anastomosis, and left lower quadrant loop ileostom y. 2. No small-bowel obstruction. The contrast transit time from oral ingestion to excretion into the ileostomy bag is less than 25 minutes. 3. The inflamed loop of ileum seen in the prior CT is not evident in this examination, however this is because this bowel loop lies distal to the loop ileostomy and no contrast propagated distally. It may be possible to examine this loop of bowel by direct injection of contrast into the efferent b owel loop at the ileostomy and re-imaging. RPTAT: HTAR .Morteza Parish MD, MD Date Time Electronically viewed and signed by .Morteza Parish MD, on 10/13/2016 19:05 .R/
[2016-10-13 21:03] VITALS: BP 128/64; RESP 18
[2016-10-14 05:32] LABS: ADD SCAN DIFF NO
[2016-10-14 05:52] LABS: BASOPHILS % 0.5 % (0.0-2.0); EOSINOPHILS # 0.1 10^3/ul (0.0-0.5); EOSINOPHILS % 1.1 % (0.0-7.0); HEMATOCRIT 29.4 % (37.0-47.0); HEMOGLOBIN 9.4 g/dl (12.0-16.0); LYMPHOCYTES % 16.1 % (15.0-51.0); MEAN CORPUSCULAR HEMOGLOBIN 28.9 pg (29.0-33.0); MEAN CORPUSCULAR VOLUME 90.5 fl (82.0-101.0); MEAN PLATELET VOLUME 8.9 fl (7.4-10.4); MONOCYTE # 0.5 10^3/ul (0.3-0.9); MONOCYTES % 8.5 % (0.0-11.0); NEUTROPHIL # 4.7 10^3/ul (1.6-7.5); NEUTROPHILS % 73.3 % (39.0-77.0); PLATELET COUNT 375 10^3/UL (140-415); RED BLOOD COUNT 3.25 10^6/ul (4.20-5.40); RED CELL DISTRIBUTION WIDTH 13.8 % (11.5-14.5); WHITE BLOOD COUNT 6.3 10^3/ul (4.8-10.8)
[2016-10-14 07:54] VITALS: BP 127/61; RESP 22
[2016-10-14] MEDS ORDERED: CATTTS1 TRANSDERM (18:32)
[2016-10-14] MEDS ORDERED: ONDA-43 PO (18:55)
[2016-10-14] MEDS ORDERED: SIME125C69 PO (19:01)
--- NOTE | 2016-10-14 19:35 | DS ---
DATE OF ADMISSION: 10/11/2016 DATE OF DISCHARGE: 10/14/2016 DISCHARGE DIAGNOSES: 1. Nausea and vomiting, possibly due to [place]. 2. Abdominal pain. 3. Metastatic gastric carcinoma. 4. Status post palliative ileostomy 2 weeks ago for small-bowel obstruction. 5. Anxiety. 6. Hypertension. HOSPITAL COURSE: This 66-year-old Filipina was discharged less than a week ago after getting palliative ileostomy for small-bowel obstruction from metastatic gastric carcinoma. Patient was seen at [facility] oncology unit on the prior to admission where they prescribed her [place] for abdominal pain and instructed her to return for chemotherapy after jim have been removed. However, patient came home and started having severe intractable nausea, vomiting along with her underlying abdominal pain. Patient was brought to the emergency room where her repeat abdominal CT shows some dilated bowel loops, possibly consistent with small-bowel obstruction as well as the abdominal thickening, possibly consistent with peritonitis versus metastatic disease and a decreasing size of a loculated fluid in the lower abdomen that was noted prior to discharge last hospitalization. The patient underwent a small bowel follow through x-ray in the hospital that did not show small-bowel obstruction. She was taken off of oral opiates as well as oral hypertensive medicine and placed on Fentanyl patch 12 mcg per hour along with Clonidine patch 0.1 mg with resolution of the nausea and vomiting as well as the abdominal pain. The patient was started back on a mechanical soft diet, and she appeared to tolerate the food well without any nausea and vomiting. So, the patient was told that she could go home after the PICC line was discontinued and the staple was taken out. The patient unfortunately developed some chest tightness and difficulty swallowing water after hearing this news, and the patient's family requested antianxiety medication for her. DISPOSITION: The patient is discharged to home with home healthcare followup. FOLLOWUP: The patient has an appointment on the day after discharge at [facility] to begin chemotherapy and/or preparations for that. DISCHARGE MEDICATIONS: 1. Includes Fentanyl patch 12 mcg per hour, 1 patch q.72 hours. 2. Alprazolam 0.2 mg 1 p.o. q.12 hours as needed for anxiety. 3. Catapres patch 1 patch q.7 days. 4. Zofran 4 mg ODT which she will also draft roller picker at pharmacy. 5. Simethicone 125mg qac prn for gas/bloating. Dictated By: KOBY FRANCO MD DP/NTS Conf#: [id number] DID#: [id number] MTDD
[2016-10-14 19:56] VITALS: BP 131/68; RESP 16
== END 2016-10-14 20:15 | disposition home or self-care (01) | DRG 392 ==
LOC: E/R 16:32 → MS2 22:21
PROVIDERS: ADMIT Internal Medicine; ATTEND Internal Medicine
DX: R11.2 Nausea with vomiting, unspecified (principal); C16.9 Malignant neoplasm of stomach, unspecified; I10 Essential (primary) hypertension; R10.9 Unspecified abdominal pain; F41.9 Anxiety disorder, unspecified; T40.2X5A Adverse effect of other opioids, initial encounter; Y92.018 Other place in single-family (private) house as the place of occurrence of the external cause; Z93.2 Ileostomy status
CPT/HCPCS: 36415; 71010; 74177; 74250; 80048; 80053; 81001; 81003; 83690; 85025; 85651; 87040; 87081; J0692; J2270; J2405; J3480; J7030; J7040; Q9967

== ENCOUNTER 2016-10-16 02:40 | Inpatient (IN) | payer BC, MEDICARE, OTHER ==
[~2016-10-16] VITALS: Ht 160 cm; Wt 44.2 kg
[~2016-10-16 02:40] MED LIST changes: +CATTTS1 TRANSDERM; -CHOL100062 PO; -CYAN100080 PO; -LOSA50TA6 PO; -MULTI PO; +ONDA-43 PO; +SIME125C69 PO
--- NOTE | 2016-10-16 04:18 | ERA ---
ER Documentation Chief Complaint Date/Time DATE: 10/16/16 TIME: 04:18 Chief Complaint fever, n/v x 2 days, tylenol @ 0200 ROS All systems reviewed and are negative except as per history of present illness. Medications Home Meds Active Scripts Simethicone (Simethicone) 125 Mg Capsule, 125 MG PO AC MEALS Y for DISTENSION/ GAS/BLOATING for 30 Days, #60 CAP Prov:KOBY FRANCO MD 10/14/16 Ondansetron Hcl* (Zofran*) 4 Mg Tab, 4 MG PO Q6H Y for NAUSEA AND OR VOMITING for 30 Days, #30 TAB Prov:KOBY FRANCO MD 10/14/16 Clonidine Patch (CATAPRES PATCH) 0.1 Mg/24 Hr Patch, 1 PATCH TRANSDERM Q7D for 28 Days, #4 PATCH Prov:KOBY FRANCO MD 10/14/16 Discontinued Scripts Losartan Potassium* (Losartan Potassium*) 50 Mg Tablet, 50 MG PO DAILY for 30 Days, #30 TAB Prov:KOBY FRANCO MD 10/06/16 Allergies Allergies: Coded Allergies: No Known Allergy (Unverified , 10/11/16) PMhx/Soc History of Surgery: Yes (colostomy, partial colectomy) Anesthesia Reaction: No Hx Neurological Disorder: No Hx Respiratory Disorders: No Hx Cardiac Disorders: Yes (htn) Hx Psychiatric Problems: No Hx Miscellaneous Medical Probl: Yes (stage 4 stomach cancer, radiation/chemo last year, next wk again) Hx Alcohol Use: No Hx Substance Use: No Hx Tobacco Use: No Smoking Status: Unknown if ever smoked Physical Exam Vitals Vital Signs Date Time Temp Pulse Resp B/P Pulse Ox O2 Delivery O2 Flow Rate FiO2 10/16/16 02:43 101.1 89 17 131/64 98 Physical Exam Const: [] Head: Atraumatic Eyes: Normal Conjunctiva ENT: Normal External Ears, Nose and Mouth. Neck: Full range of motion..~ No meningismus. Resp: Clear to auscultation bilaterally Cardio: Regular rate and rhythm, no murmurs Abd: Soft, non tender, non distended. Normal bowel sounds Skin: No petechiae or rashes Back: No midline or flank tenderness Ext: No cyanosis, or edema Neur: Awake and alert Psych: Normal Mood and Affect Result Diagram: 10/16/16 0455 Results 24 hrs Laboratory Tests Test 10/16/16 04:55 White Blood Count 15.410^3/ul Red Blood Count 3.5810^6/ul Hemoglobin 10.3g/dl Hematocrit 31.8% Mean Corpuscular Volume 88.8fl Mean Corpuscular Hemoglobin 28.8pg Mean Corpuscular Hemoglobin Concent 32.4g/dl Red Cell Distribution Width 13.5% Platelet Count 94688^3/UL Mean Platelet Volume 9.3fl Neutrophils % 89.8% Lymphocytes % 4.9% Monocytes % 4.6% Eosinophils % 0.0% Basophils % 0.2% Nucleated Red Blood Cells % 0.0/100WBC Neutrophils # 13.910^3/ul Lymphocytes # 0.810^3/ul Monocytes # 0.710^3/ul Eosinophils # 0.010^3/ul Basophils # 0.010^3/ul Nucleated Red Blood Cells # 0.010^3/ul Prothrombin Time 14.8Sec Prothrombin Time Ratio 1.2 INR International Normalized Ratio 1.16 Activated Partial Thromboplast Time 31.9Sec Current Medications Medications (Trade) Dose Ordered Sig/Barbara Route PRN Reason Start Time Stop Time Status Last Admin Dose Admin Ondansetron HCl (Zofran Inj) 4 mg ONCE STAT IV 10/16/16 05:15 10/16/16 05:16 DC 10/16/16 05:46 THU FRAGA MD Oct 16, 2016 04:18
[2016-10-16] MEDS ORDERED: ONDANSETRON 4 MG INJ IV STA ×2 (05:15→06:26)
--- NOTE | 2016-10-16 05:16 | RADRPT ---
PROCEDURE: CHEST - 1 VIEW CLINICAL INDICATION: 66-year-old female with shortness of breath and sepsis. TECHNIQUE: A single frontal AP portable view of the chest was performed. The images were reviewed on a PACS workstation. COMPARISON: Chest x-ray October 11, 2016. FINDINGS: There is a right-sided chest port present with the tip of the catheter at the cavoatrial junction re gion. The cardiomediastinal silhouette is prominent but within normal limits. The thoracic aortic a rch is calcified. Chronic lung changes are present. There is mild medial right basilar subsegmental atelectasis. A superimposed infiltrate cannot be excluded. There is small left pleural effusion wit h basilar compressive subsegmental atelectasis. There is no evidence for congestive heart failure. T here is no evidence for pneumothorax. Mild degenerative changes are seen within the spine. IMPRESSION: 1. Right-sided chest port with the tip of the catheter at the cavoatrial junction region. 2. Calcified thoracic aortic arch. 3. Chronic lung changes. 4. Right medial basal subsegmental atelectasis. A superimposed infiltrate cannot be excluded. 5. Small left pleural effusion with basilar compressive subsegmental atelectasis. 6. Degenerative changes within the spine. .Enio Leija MD, Date Time Electronically viewed and signed by .Enio Leija MD, on 10/16/2016 05:16 .Abhinav
[2016-10-16 05:24] LABS: ADD SCAN DIFF NO
[2016-10-16 05:30] LABS: BASOPHILS % 0.2 % (0.0-2.0); HEMATOCRIT 31.8 % (37.0-47.0); HEMOGLOBIN 10.3 g/dl (12.0-16.0); LYMPHOCYTES # 0.8 10^3/ul (0.8-2.9); LYMPHOCYTES % 4.9 % (15.0-51.0); MEAN CORPUSCULAR HEMOGLOBIN 28.8 pg (29.0-33.0); MEAN CORPUSCULAR HGB CONC 32.4 g/dl (32.0-37.0); MEAN CORPUSCULAR VOLUME 88.8 fl (82.0-101.0); MEAN PLATELET VOLUME 9.3 fl (7.4-10.4); MONOCYTE # 0.7 10^3/ul (0.3-0.9); MONOCYTES % 4.6 % (0.0-11.0); NEUTROPHIL # 13.9 10^3/ul (1.6-7.5); NEUTROPHILS % 89.8 % (39.0-77.0); PLATELET COUNT 370 10^3/UL (140-415); RED BLOOD COUNT 3.58 10^6/ul (4.20-5.40); RED CELL DISTRIBUTION WIDTH 13.5 % (11.5-14.5); WHITE BLOOD COUNT 15.4 10^3/ul (4.8-10.8)
[2016-10-16 05:38] LABS: INR 1.16; PARTIAL THROMBOPLASTIN TIME 31.9 Sec (25.0-35.0); PROTIME 14.8 Sec (12.2-14.2); PT RATIO 1.2
[2016-10-16] MEDS ORDERED: VANCOMYCIN 1 GM (PMX) 250 ML IVPB STA (06:09)
[2016-10-16] MEDS ORDERED: PIPER-TAZO 3.375 GM IV (PMX) 100 ML IVPB STA (06:09)
[2016-10-16] MEDS ORDERED: SOD CHLORIDE 0.9% 1,000 ML IV STA ×2 (06:09→06:11)
[2016-10-16 06:24] LABS: ALBUMIN 3.3 g/dl (3.3-4.9); CHLORIDE 95 mmol/L (97-110)
[2016-10-16 06:25] LABS: POTASSIUM 4.2 mmol/L (3.5-5.1); SODIUM 138 mmol/L (135-144)
[2016-10-16 06:27] LABS: ANION GAP 20 (8-16); ASPARTATE AMINO TRANSFERASE 29 IU/L (15-46); BILIRUBIN,INDIRECT 0.4 mg/dl (0-1.1); BILIRUBIN,TOTAL 0.4 mg/dl (0.2-1.3); BLOOD UREA NITROGEN 13 mg/dl (7-20); CARBON DIOXIDE 27 mmol/L (21-31); TOTAL PROTEIN 7.8 g/dl (6.1-8.1)
[2016-10-16 06:28] LABS: ALANINE AMINOTRANSFERASE 18 IU/L (13-69); ALBUMIN/GLOBULIN RATIO 0.73; ALKALINE PHOSPHATASE 150 IU/L (42-121); CALCIUM 8.9 mg/dl (8.4-10.2); GLUCOSE 72 mg/dl (70-220)
[2016-10-16] MEDS ORDERED: ACETAMINOPHEN 325 MG TAB PO ONE (06:30)
[2016-10-16 06:41] LABS: TROPONIN-I < 0.012 ng/ml (0.00-0.12)
--- NOTE | 2016-10-16 07:08 | RADRPT ---
PROCEDURE: CT Abdomen and Pelvis without contrast. CLINICAL INDICATION: Sepsis. TECHNIQUE: Routine axial tomographic images of the abdomen and pelvis were obtained from the domes the diaphragm to the symphysis pubis. The patient was scanned withoutoral or intravenous contrast. Coronal and sagittal reformatted images were obtained from the axial source images. Images were re viewed on a high-resolution PACS workstation. One or more of the following dose reduction techniques were used: Automated exposure control, Adjust ment of the mA and/or kV according to patient size, and/or Use of iterative reconstruction technique . The total exam CTDI equals 4.02 mGy and the total exam DLP equals 193.46 mGy-cm. COMPARISON: CT abdomen and pelvis dated 10/11/2016 FINDINGS: The visualized portions of the lung bases demonstrate small bilateral pleural effusions with bilater al basilar consolidation. Evaluation of the intra-abdominal solid organs is limited on this nonco ntrast examination. The liver appears normal in size. There is no intra or extrahepatic biliary di latation. The gallbladder is unremarkable by CT criteria. The spleen, pancreas, and adrenal glands are unremarkable. The kidneys are symmetric in size. No renal, ureteral, or bladder calculi are identified. No perine phric inflammatory changes are identified. The urinary bladder is grossly unremarkable. Again noted are postsurgical changes from partial gastrectomy with Lydia-en-Y jejunostomy. There is persistent mild distension of the gastric remnant as well as the proximal efferent limb. There is a left lower quadrant loop ileostomy. There is a persistent mildly distended loop of distal ileum wi th fecalization and abnormal C-loop configuration within the pelvis. The uterus is surgically absen t. There is small volume abdominal pelvic ascites. No intraperitoneal free air or abscess is ident ified. The aorta is normal in caliber and contains vascular calcifications. No retroperitoneal, mes enteric, or inguinal lymphadenopathy is identified. The osseous structures demonstrate degenerative changes of the spine. No significant subcutaneous soft tissue abnormalities are seen. IMPRESSION: 1. Limited, noncontrast CT of the abdomen and pelvis. 2. There is a persistent distended loop of distal ileum with fecalization and abnormal C-loop confi guration within the pelvis. The configuration and degree of distension is unchanged from prior exam ination. There is no evidence of obstruction on prior small bowel follow-through, however loop may b e distal to the ileostomy. Obstruction at this level is not excluded. There is a persistent surroun ding fluid collection, not significantly changed from prior examination. 3. Postsurgical changes from partial gastrectomy with Lydia-en-Y anastomosis. There is persistent d istension of the gastric remnant and efferent limb. 4. Left lower quadrant loop ileostomy. 5. Small volume abdominal pelvic ascites, improved when compared to the prior examination. 6. Status post hysterectomy. 7. Small bilateral pleural effusions with bibasilar atelectasis versus pneumonia. 8. Senescent changes with aortic atherosclerosis and degenerative changes of the spine. RPTAT: HH .Selene Cramer MD, MD Date Time Electronically viewed and signed by .Selene Cramer MD, MD on 10/16/2016 07:08 .Esteban/
[2016-10-16] MEDS ORDERED: ACETAMINOPHEN 325 MG TAB PO PRN (09:00)
[2016-10-16] MEDS ORDERED: ONDANSETRON 4 MG INJ IV PRN (09:00)
[2016-10-16] MEDS ORDERED: CLONIDINE 0.1 MG/24 HR PATCH TRANSDERM SCH (10:00)
--- NOTE | 2016-10-16 10:03 | ERA ---
ER Documentation Chief Complaint Date/Time DATE: 10/16/16 TIME: 10:00 Chief Complaint fever, n/v x 2 days, tylenol @ 0200 HPI Patient is a 66-year-old female with stomach cancer which is metastatic as well as hypertension who presents with fever and vomiting. The patient's symptoms started Wednesday night. She has a fever as high as 102 and took Tylenol 325 mg this morning. She feels tired. She had a recent colostomy placed by Dr. Michel. This is putting out stool. Her primary doctor is Dr. Koby Saleem. ROS All systems reviewed and are negative except as per history of present illness. Medications Home Meds Active Scripts Simethicone (Simethicone) 125 Mg Capsule, 125 MG PO AC MEALS Y for DISTENSION/ GAS/BLOATING for 30 Days, #60 CAP Prov:KOBY SALEEM MD 10/14/16 Ondansetron Hcl* (Zofran*) 4 Mg Tab, 4 MG PO Q6H Y for NAUSEA AND OR VOMITING for 30 Days, #30 TAB Prov:KOBY SALEEM MD 10/14/16 Clonidine Patch (CATAPRES PATCH) 0.1 Mg/24 Hr Patch, 1 PATCH TRANSDERM Q7D for 28 Days, #4 PATCH Prov:KOBY SALEEM MD 10/14/16 Discontinued Scripts Losartan Potassium* (Losartan Potassium*) 50 Mg Tablet, 50 MG PO DAILY for 30 Days, #30 TAB Prov:KOBY SALEEM MD 10/06/16 Allergies Allergies: Coded Allergies: No Known Allergy (Unverified , 10/11/16) PMhx/Soc History of Surgery: Yes (colostomy, partial colectomy) Anesthesia Reaction: No Hx Neurological Disorder: No Hx Respiratory Disorders: No Hx Cardiac Disorders: Yes (htn) Hx Psychiatric Problems: No Hx Miscellaneous Medical Probl: Yes (stage 4 stomach cancer, radiation/chemo last year, next wk again) Hx Alcohol Use: No Hx Substance Use: No Hx Tobacco Use: No Smoking Status: Never smoker FmHx Positive for hypertension Physical Exam Vitals Vital Signs Date Time Temp Pulse Resp B/P Pulse Ox O2 Delivery O2 Flow Rate FiO2 10/16/16 08:30 98.9 80 13 126/63 98 Room Air 10/16/16 06:30 98.9 90 13 119/69 98 Room Air 10/16/16 05:52 101.2 96 16 124/65 99 Room Air 10/16/16 02:43 101.1 89 17 131/64 98 Physical Exam Const: Moderate distress Head: Atraumatic Eyes: Normal Conjunctiva ENT: Normal External Ears, Nose and Mouth. Dry mucous membranes Neck: Full range of motion..~ No meningismus. Resp: Clear to auscultation bilaterally Cardio: Regular rate and rhythm, no murmurs Abd: Soft, incision is clean, dry, and intact, colostomy stoma is pink and putting out stool Skin: No petechiae or rashes Back: No midline or flank tenderness Ext: No cyanosis, or edema Neur: Awake and alert Psych: Normal Mood and Affect Result Diagram: 10/16/16 0455 10/16/16 0438 Results 24 hrs Laboratory Tests Test 10/16/16 04:38 10/16/16 04:45 10/16/16 04:55 10/16/16 05:30 Sodium Level 138mmol/L Potassium Level 4.2mmol/L Chloride Level 95mmol/L Carbon Dioxide Level 27mmol/L Anion Gap 20 Blood Urea Nitrogen 13mg/dl Creatinine 0.50mg/dl Glucose Level 72mg/dl Calcium Level 8.9mg/dl Total Bilirubin 0.4mg/dl Direct Bilirubin 0.00mg/dl Indirect Bilirubin 0.4mg/dl Aspartate Amino Transf (AST/SGOT) 29IU/L Alanine Aminotransferase (ALT/SGPT) 18IU/L Alkaline Phosphatase 150IU/L Troponin I < 0.012ng/ml Total Protein 7.8g/dl Albumin 3.3g/dl Globulin 4.50g/dl Albumin/Globulin Ratio 0.73 Lactic Acid Level 1.0mmol/L White Blood Count 15.410^3/ul Red Blood Count 3.5810^6/ul Hemoglobin 10.3g/dl Hematocrit 31.8% Mean Corpuscular Volume 88.8fl Mean Corpuscular Hemoglobin 28.8pg Mean Corpuscular Hemoglobin Concent 32.4g/dl Red Cell Distribution Width 13.5% Platelet Count 15723^3/UL Mean Platelet Volume 9.3fl Neutrophils % 89.8% Lymphocytes % 4.9% Monocytes % 4.6% Eosinophils % 0.0% Basophils % 0.2% Nucleated Red Blood Cells % 0.0/100WBC Neutrophils # 13.910^3/ul Lymphocytes # 0.810^3/ul Monocytes # 0.710^3/ul Eosinophils # 0.010^3/ul Basophils # 0.010^3/ul Nucleated Red Blood Cells # 0.010^3/ul Prothrombin Time 14.8Sec Prothrombin Time Ratio 1.2 INR International Normalized Ratio 1.16 Activated Partial Thromboplast Time 31.9Sec Lipase 11U/L Current Medications Medications (Trade) Dose Ordered Sig/Barbara Route PRN Reason Start Time Stop Time Status Last Admin Dose Admin Ondansetron HCl 4 mg 4 mg ONCE STAT IV 10/16/16 05:15 10/16/16 05:16 DC 10/16/16 05:46 Vancomycin HCl 250 ml @ 125 mls/hr ONCE STAT IVPB 10/16/16 06:09 10/16/16 08:08 DC 10/16/16 07:08 Piperacillin Sod/ Tazobactam Sod 100 ml @ 200 mls/hr ONCE STAT IVPB 10/16/16 06:09 10/16/16 06:38 DC 10/16/16 06:37 Sodium Chloride (NS) 1,000 ml @ 1,000 mls/hr Q1H STAT IV 10/16/16 06:09 10/16/16 07:08 DC 10/16/16 06:37 Acetaminophen 650 mg 650 mg ONCE ONCE PO 10/16/16 06:30 10/16/16 06:31 DC Sodium Chloride (NS) 1,000 ml @ 1,000 mls/hr Q1H STAT IV 10/16/16 06:11 10/16/16 07:10 DC 10/16/16 06:11 Ondansetron HCl (Zofran Inj) 4 mg ONCE STAT IV 10/16/16 06:26 10/16/16 06:27 DC 10/16/16 06:26 Ondansetron HCl (Zofran Inj) 4 mg BRIDGE ORDER PRN IV NAUSEA AND/OR VOMITING 10/16/16 09:00 10/17/16 08:59 Acetaminophen 650 mg 650 mg ER BRIDGE PRN PO MILD PAIN/FEVER 10/16/16 09:00 10/17/16 08:59 Piperacillin Sod/ Tazobactam Sod (Zosyn 3.375gm/ 100 ml (Pmx)) 100 ml @ 200 mls/hr Q8 IVPB 10/16/16 14:00 UNV Clonidine HCl (Catapres-Tts 1 Patch) 1 patch Q7D TRANSDERM 10/16/16 10:00 UNV Miscellaneous Information 125 mg AC MEALS PRN PO DISTENSION/GAS/BLOATING 10/16/16 10:00 UNV Procedures/MDM EKG read by me: Rate/Rhythm: Regular rate and rhythm at a rate of 94 Intervals: Normal Impression: No evidence of ischemia or arrhythmia Chest x-ray read by radiology. Admit MDM: Patient's infectious symptoms have not stabilized and the patient is at risk of rapid decompensation. The patient will be admitted for careful hydration, antibiotic therapy, and infectious source control. Severe Sepsis criteria: Infectious source: Unclear at this time End organ damage indicated by: No end organ damage at this time. Sepsis Management: Time of recognition of sepsis: 05:30 Within 3 hours of recognition: Blood cultures x 2 before broad-spectrum antibiotics: Yes 30 ml/kg NS bolus Completed Initial lactate 1.0 Repeat lactate pending Time of recognition of septic shock: No septic shock Septic Shock Assessment: Any lactic acid > 4.0 No Persistent hypotension (SBP < 90 or 40 mmHg drop, MAP < 65) despite 30 mL/kg IV fluid bolus No Volume Re-assessment for Septic Shock (post 30 ml/kg bolus): No septic shock at this time Persistent Hypotension Treatment: Comfort care No Central line Not Required Vasopressor started Not required I considered further perfusion assessment with CVP measurement, SCVO2, bedside ultrasound volume assessment, passive leg raise, trial of further fluid bolus. And proceeded with 30 ml/kg fluid bolus of NSS, broad spectrum antibiotics, and admission. Accepting Care Team Current data and ongoing care discussed. Admitting Physician: Dr. Koby Saleem the primary doctor Photo Specialist(s): None Outstanding Data: Culture results and repeat lactic acid Critical Care: Critical care time 35 minutes excluding all billable procedures Emergent fluid management while maintaining close respiratory support. Provision of immediate and broad-spectrum antibiotic therapy. Simultaneous assessment for possible sources in order to direct targeted therapy. Consideration for invasive and chemical support to prevent cardiopulmonary collapse. Departure Diagnosis: Primary Impression: Sepsis Qualified Code: A41.9 - Sepsis, due to unspecified organism Additional Impressions: Fever Qualified Code: R50.9 - Fever, unspecified fever cause Leukocytosis Qualified Code: D72.829 - Leukocytosis, unspecified type Anemia Qualified Code: D64.9 - Anemia, unspecified type Condition: TALYA Kruger MD Oct 16, 2016 10:03
[2016-10-16 14:09] LABS: ADD UMIC YES; URINE BILIRUBIN (Dip) 2+ (NEGATIVE); URINE BLOOD (Dip) TRACE (NEGATIVE); URINE COLOR YELLOW (YELLOW); URINE GLUCOSE (Dip) NEGATIVE (NEGATIVE); URINE KETONES (Dip) 40 (NEGATIVE); URINE LEUKOCYTE ESTERASE (Dip) NEGATIVE (NEGATIVE); URINE NITRITE (Dip) NEGATIVE (NEGATIVE); URINE TOTAL PROTEIN (Dip) TRACE (NEGATIVE); URINE UROBILINOGEN (Dip) 0.2 E.U./dL (0.1-1.0)
[2016-10-16 14:16] LABS: BACTERIA,URINE FEW; ICTOTEST POSITIVE (NEGATIVE); RENAL EPITHELIAL CELLS,URINE OCCASIONAL; URINE RBCS 0-2 /HPF (0)
--- NOTE | 2016-10-16 15:46 | CONS ---
DATE OF ADMISSION: 10/16/2016 DATE OF CONSULTATION: 10/16/2016 TYPE OF CONSULTATION: Infectious Disease. REASON FOR CONSULTATION: Antibiotic management. HISTORY OF PRESENT ILLNESS: Carmen Barrera is a 66-year-old female patient of Dr. Anna Saleem. Huber herrera has a history of stomach cancer which is metastatic. She also has a history of hypertension. The patient presents with fever and vomiting. Her symptoms started 2 days prior to admission. She had a fever to 102. The patient recently had a colostomy placed by Dr. Michel and this revealed stool. She has no other past medical history except for stage IV stomach cancer with radiation and chemot herapy with colostomy and partial colectomy, which is plenty. She also has a history of hypertensio n on Losartan as noted previously. PAST MEDICAL HISTORY: Operations as outlined. FAMILY HISTORY: Noncontributory. SOCIAL HISTORY: She does not smoke, drink or abuse drugs. ALLERGIES: NONE TO PENICILLIN, SULFA OR FOODS. MEDICATIONS: Per chart. REVIEW OF SYSTEMS: As per HPI. PHYSICAL EXAMINATION: GENERAL: The patient is a chronically ill-appearing female who is alert, responsive, in moderate di stress. VITAL SIGNS: Temperature 101.1. SKIN: Without generalized rash. HEENT: Within normal limits. NECK: Supple. LYMPH NODES: None palpable. CHEST: Decreased breath sounds at the bases. HEART: Without murmur or gallop. ABDOMEN: Soft, nontender, without organosplenomegaly or masses. EXTREMITIES: Abdomen soft, nontender, without organosplenomegaly. She has a colostomy which is pin k. EXTREMITIES: Without cyanosis, clubbing, or edema. RECTAL AND GENITAL: Deferred. NEUROLOGIC: No focal neurological abnormality. ANCILLARY LABORATORY DATA: White count 15.4, H and H 10.3 and 31.8, platelet count 370,000. BUN an d creatinine 13/0.5. IMPRESSION AND PLAN: The patient was started empirically on vancomycin and Zosyn because of the pos sibility of severe sepsis. We will continue her on Zosyn. I will dictate my findings to Dr. Saleem. Dictated By: LOLLY GUALLPA MD, JD/OH Conf#: [id number] DID#: [id number]
[2016-10-16 16:30] VITALS: TEMP 98.9
[2016-10-16] MEDS ORDERED: VANCOMYCIN IV PER PHARMACY XX SCH (17:00)
--- NOTE | 2016-10-16 17:30 | HP ---
DATE OF ADMISSION: 10/16/2016 CHIEF COMPLAINT: Fever, nausea, and vomiting. HISTORY OF PRESENT ILLNESS: This is a 66-year-old unfortunate Filip[place] patient with a history of st age IV metastatic gastric cancer who was just discharged 2 days prior to this admission after being admitted for intractable nausea, vomiting, and abdominal pain. The patient had stabilized on a fent anyl patch with resolution of the abdominal pain and her nausea had been controlled on Zofran. The patient was seen at the [facility] (formerly [facility] yesterday with plans for initiation of chemotherapy, but she ca me in today with high fever, nausea and vomiting, with leukocytosis. No abdominal pain at this time . In the ER, patient was noted to have elevated WBC of 15.4 and she is admitted for possible sepsis , either from peritonitis or pneumonia. PAST MEDICAL HISTORY: 1. Gastric cancer. 2. Status post partial gastrectomy and partial colectomy. 3. Status post palliative ileostomy. 4. Hypertension. ALLERGIES: NKDA. CURRENT MEDICATIONS: 1. Clonidine patch TTS-1, one application q. weekly. 2. Fentanyl patch 12.5 mcg per hour apply q.3 days. 3. Simethicone before meals for abdominal bloating. SOCIAL HISTORY: The patient does not smoke, does not drink alcohol. She lives at home with her [facility]. The patient is still interested in any palliative chemotherapy. FAMILY HISTORY: Noncontributory. PHYSICAL EXAMINATION: GENERAL: Thin, weak-appearing female who is in no acute distress. VITAL SIGNS: Temperature max of 101.2, currently 98.9, blood pressure 125/62, pulse of 78, respirat ion rate 13, O2 saturation 98% on room air. HEENT: Pupils equally round, reactive to light. Oropharynx clear. LUNGS: Minimal basilar crackles. CARDIAC: Regular rate and rhythm, normal S1, S2. ABDOMEN: Active bowel sounds. There is a midline incision with Steri-Strips across. No evidence o f erythema on the wound. The ileostomy bag over ileostomy is draining normal yellow stool. No abdo beth tenderness. EXTREMITIES: No clubbing, cyanosis, or edema. LABORATORY DATA: WBC 15.4, hemoglobin 10.3, hematocrit 31.8, platelet count 370,000. Sodium 138, p otassium 4.2, chloride 95, carbon dioxide 27, BUN 13, creatinine 0.5, glucose 72. Liver enzymes are notable for mildly elevated alkaline phosphatase of 150. The chest x-ray shows some right-sided chest port, some chronic lung changes. There is right medial basal subsegmental atelectasis with possible superimposed infiltrate. There is a small left pleura l effusion with basilar compressive subsegmental atelectasis. There are degenerative changes within the spine. The abdominal and pelvic CT shows small bilateral pleural effusions with bibasilar cons olidation. There are post-surgical changes from old partial gastrectomy and a left lower quadrant l oop ileostomy as well as remote hysterectomy. There is a persistent distended loop of distal ileum and an abnormal C-loop configuration within the pelvis. The distention and configuration is unchang ed from prior exam. There is no evidence of obstruction on the prior small bowel follow-through, so the loops may be distal to the ileostomy. There is a persistent surrounding fluid collection that is not significantly changed from prior examination that may represent hematoma or abscess. IMPRESSION: 1. Fever with leukocytosis, possible systemic inflammatory response from a new infection. Source ma y be the basilar lung infiltrate/consolidation or the peritonitis and abdominal abscess. The patien t did have complaints of abdominal pain on previous admission even after the ileostomy and we did no t think there was peritonitis or abscess at that time since the patient did not have leukocytosis or fever on the previous two admissions. At this point, will start patient empirically on IV antibiot ics, consult infectious disease for further management. 2. Metastatic gastric cancer. The patient was supposed to start chemotherapy as an outpatient at [facility], but she has been having recurrent acute problems and is having a difficult time commuti ng back and forth to [facility] ([facility] for her chemotherapy. I will request oncology consultation from [facility]. Dr. Nuno to see if we can transfer the plans for chemotherapy here locally so that the patient can receive care nearer to her home. 3. Nausea and vomiting. The patient complains now of no abdominal pain, but had difficulty eating solid food and it feels as if her food is getting stuck in the gastric area. This is possible, sinc e the patient does have evidence of recurrent gastric cancer on prior CT scan of the abdomen. Since we do not plan on doing any surgical intervention at this time, I have discussed with the patient t he possibility of trying her on a liquid or pureed diet and seeing if this will allow her to eat bet ter without the nausea. Dictated By: KOBY FRANCO MD DP/OH Conf#: [id number] DID#: [id number]
[2016-10-16 18:20] VITALS: BP 136/72; PULSE 79; RESP 18; BMI 21.9
[2016-10-16 20:54] VITALS: BP 135/66; RESP 18
[2016-10-16] MEDS: PIPER-TAZO 3.375 GM IV (PMX) 100 ML IVPB SCH ×2 (21:55→22:00)
[2016-10-17] MEDS: VANCOMYCIN 1.25 GM in SOD CHLORIDE 0.9% 250 ML IVPB SCH (02:27)
[2016-10-17] MEDS: PIPER-TAZO 3.375 GM IV (PMX) 100 ML IVPB SCH ×3 (05:44→21:38)
[2016-10-17] MEDS: CLONIDINE 0.1 MG/24 HR PATCH TRANSDERM SCH (06:31)
[2016-10-17 08:00] VITALS: BP 131/60; RESP 18
[2016-10-17 08:08] LABS: ADD SCAN DIFF NO
[2016-10-17 08:15] LABS: BASOPHILS % 0.4 % (0.0-2.0); EOSINOPHILS % 0.5 % (0.0-7.0); HEMATOCRIT 28.3 % (37.0-47.0); HEMOGLOBIN 9.1 g/dl (12.0-16.0); LYMPHOCYTES # 0.9 10^3/ul (0.8-2.9); LYMPHOCYTES % 10.2 % (15.0-51.0); MEAN CORPUSCULAR HEMOGLOBIN 29.1 pg (29.0-33.0); MEAN CORPUSCULAR HGB CONC 32.2 g/dl (32.0-37.0); MEAN CORPUSCULAR VOLUME 90.4 fl (82.0-101.0); MEAN PLATELET VOLUME 9.4 fl (7.4-10.4); MONOCYTE # 0.6 10^3/ul (0.3-0.9); NEUTROPHIL # 6.8 10^3/ul (1.6-7.5); NEUTROPHILS % 81.5 % (39.0-77.0); PLATELET COUNT 321 10^3/UL (140-415); RED BLOOD COUNT 3.13 10^6/ul (4.20-5.40); RED CELL DISTRIBUTION WIDTH 13.8 % (11.5-14.5); WHITE BLOOD COUNT 8.3 10^3/ul (4.8-10.8)
[2016-10-17 08:22] LABS: ALBUMIN 2.6 g/dl (3.3-4.9)
[2016-10-17 08:23] LABS: POTASSIUM 3.7 mmol/L (3.5-5.1)
[2016-10-17 08:25] LABS: ALBUMIN/GLOBULIN RATIO 0.66; BILIRUBIN,INDIRECT 0.3 mg/dl (0-1.1); BILIRUBIN,TOTAL 0.3 mg/dl (0.2-1.3); CALCIUM 8.1 mg/dl (8.4-10.2); CREATININE 0.55 mg/dl (0.44-1.00); TOTAL PROTEIN 6.5 g/dl (6.1-8.1)
--- NOTE | 2016-10-17 08:53 | RADRPT ---
PROCEDURE: CT Chest without contrast. CLINICAL INDICATION: Bibasilar consolidation TECHNIQUE: CT scan of the chest without contrast was performed. The patient was scanned without i ntravenous contrast. Coronal and sagittal reformatted images were obtained from the axial source im ages. images. The calculated radiation dose measures 141.56 mGy centimeters. The CTDI measures 3.75 mGy. COMPARISON: Multiple prior chest radiographs the most recent from the same day. FINDINGS: A right-sided chemo port is seen with its tip at the SVC / RA junction. The lower neck is grossly wi thin normal limits. The thyroid demonstrates homogeneous density. There is a patchy interstitial infiltrate in the right lower lung, suspicious for pneumonia and to a lesser extent in the left lower lung. There are small bilateral pleural effusions, greater on the right. By apical scarring is noted. The mediastinum is unremarkable without evidence for mass or lymphadenopathy. The vascular structur es of the mediastinum are normal in course and caliber. Aortic vascular calcifications and coronary artery calcifications are present. The heart size is normal without evidence for pericardial thick ening or effusion. The axillary regions, subpectoral regions, and supraclavicular regions are all unremarkable. Imagin g obtained through the upper abdomen reveals no acute abnormality. Surgical changes are noted about the stomach. Ascites is noted at the upper abdomen. The surrounding osseous structures are remarkabl e for degenerative spondylosis of the spine. No osteolytic or osteoblastic lesion is detected. IMPRESSION: 1. Right-sided chemo port in place. 2. Patchy interstitial infiltrates in the lung bases bilaterally representing edema versus pneumon ia. 3. Small bilateral pleural effusions, greater on the right. 4. Small volume free peritoneal fluid in the upper abdomen. 5. Atherosclerotic vascular calcifications. RPTAT: EE .Lake Mcdonald MD, MD Date Time Electronically viewed and signed by .Lake Mcdonald MD, MD on 10/17/2016 08:52 .d/
--- NOTE | 2016-10-17 09:03 | CONS ---
DATE OF ADMISSION: 10/16/2016 DATE OF CONSULTATION: 10/17/2016 MEDICAL ONCOLOGY PROGRESS NOTE SUBJECTIVE: The patient is not experiencing any abdominal pain, but has been experiencing continued nausea and vomiting. She has not noted any shaking chills. The patient does state that she has some dyspnea on exertion and also "palpitations" with exertion. No actual chest pain. OBJECTIVE: VITAL SIGNS: Temperature 98.8, pulse 79, respirations 18, blood pressure 135/66, pulse oximetry 96% on room air. SKIN: No ecchymosis, no petechiae or rashes. HEENT: No mucosal lesions. No scleral icterus. NECK: Supple. No jugular venous distention or thyroid enlargement. CHEST: Clear to auscultation and percussion. No rhonchi, wheezes, rales or rubs. NODES: No palpable lymphadenopathy in lymph node bearing area. CHEST: There is a Port-A-Cath in place in the right anterior chest, which has been accessed. ABDOMEN: Firm, less distended. There are some occasional bowel sounds present. The stoma in the l eft mid abdomen is functioning. EXTREMITIES: No clubbing, edema or cyanosis. No palpable cords or Homans sign. NEUROLOGIC: Normal. LABORATORY: Sodium 138, potassium 3.7, creatinine 0.55, BUN 9. White count 8300, with an absolute n eutrophil count of 6800 and absolute lymphocyte count of 900. Hemoglobin 9.1, hematocrit 38.3, and platelet count is 321,000. ASSESSMENT: 1. 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 2. Probable partial small-bowel obstruction secondary to #1. IMPRESSION PLAN: The patient will be kept on IVs. May require NG suctioning if nausea and vomiting continues. Dictated By: RADHA RODRIGUES MD SR/NTS Conf#: [id number] DID#: [id number]
--- NOTE | 2016-10-17 10:07 | CONS ---
DATE OF ADMISSION: 10/16/2016 DATE OF CONSULTATION: 10/16/2016 TYPE OF CONSULTATION: Medical Oncology REQUESTING PHYSICIAN: Anna Saleem MD. REASON FOR CONSULTATION: Recurrent gastric carcinoma. Dear Dr. Saleem: Thank you very much for asking me to see this very interesting and pleasant patient in oncologic consultation. As you know, Ms. Carmen Call is a 66- year-old female who has a known diagnosis of gastric carcinoma. This was diagnosed initially approximately 1 year ago. The patient underwent a partial gastrectomy at the [facility]. The patient at that time was found to have stage III disease. This included 28 positive lymph nodes. The patient was also found to have lymphovascular involvement as well as perineural involvement. The patient did undergo therapy. Apparently, the patient received chemotherapy using the FOLFOX therapy. She received 4 cycles, which were completed on 2015. This was followed by concurrent radiation therapy and continuous infusion 5-FU. The patient apparently then received 2 further courses of FOLFOX after the completion of chemoradiation. The patient states she tolerated therapy well. More recently, however, the patient had been experiencing abdominal pain and distention. She was found to have an intra-abdominal mass and actually was hospitalized here on 09/18/2016 through 10/08/2016. During that time, the patient was found to have a bowel obstruction and she did undergo a surgical resection performed by Dr. Daniel Michel. This included a palliative diverting loop ileostomy. Pathology at that time did demonstrate metastatic adenocarcinoma with signet ring cells which were felt to be compatible with gastric primary. These were mesenteric biopsies. The patient has had several emergency room visits in the past 1 or 2 months. She has had continued nausea and vomiting and more recently fevers. Apparently , the patient had been hospitalized at [facility], but no specific therapy was given other than possibly some antibiotic therapy. The patient was also hospitalized here on 10/12 through 10/14. During that time, the patient had abdominal pain and nausea and vomiting. No particular source of infection was found. The patient has since been seen again at [facility]. Some type of palliative therapy was planned but has never been initiated. The patient is now admitted to [facility] after presenting to the emergency room with complaints of abdominal pain and nausea and vomiting as well as fever. It should be noted the patient states that her colostomy has been functioning. PAST MEDICAL HISTORY: The patient's past history includes the history of gastric carcinoma as noted. Other medical problems have included a history of hypertension. The patient may have also had a history of inflammatory bowel disease as well as peptic ulcer disease. PAST SURGICAL HISTORY: Included a surgery for an ectopic . She has also had a previous hysterectomy and appendectomy. MEDICATIONS: At the time of admission include only Tylenol for fever. The patient was given a fentanyl patch when she was last discharged from the hospital here. This was kept on for 3 days and this continued. The patient could not fentanyl as an outpatient. She therefore never had the prescription refilled. Other medications at home have included a clonidine patch 0.1 mg per 24 hours, ondansetron 4 mg every 6 hours p.r.n. nausea and vomiting, also losartan 50 mg p.o. daily. ALLERGIES: THE PATIENT STATES SHE HAS NO KNOWN ALLERGIES. SOCIAL HISTORY: The patient is 4, para 3 with 1 ectopic . After her hysterectomy, she states she did take Premarin for 1 year. She also did have an IUD. The patient was born in the [facility], has been in the [facility] for approximately 20 years. She has been exposed to both chemotherapy and radiation therapy. 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 It is not clear that she is exposed to any toxins at that time. She states that she previously did smoke, but is not smoking now. FAMILY HISTORY: Remarkable in that her grandmother had uterine or ovarian carcinoma. Her mother had pancreatic carcinoma and 1 sister has had breast cancer. LABORATORY DATA: At this time includes a white count of 15,400 with absolute neutrophil count of 13,900, absolute lymphocyte count of 800, hemoglobin 10.3, hematocrit 31.8, MCV 88.8, MCH 28.8, MCHC 32.4, RDW 13.5, platelet count 370, 000. Pro time 14.8 seconds, INR 1.16, PTT is 31.9 seconds. CMP includes a sodium of 138, potassium 4.9, BUN 13, creatinine 0.5. Lactic acid is 1. Total bilirubin 0.4, direct bilirubin 0, AST 29, ALT 18, alkaline phosphatase 150, albumin 3.3, total protein 7.8. Lipase is 11. A urinalysis shows only 2 white blood cells per high-power field and a few bacteria. Chest x-ray does show right-sided port with the tip of the catheter at the cavoatrial junction. There are chronic lung changes and some basilar atelectasis. Small left-sided pleural effusion. PHYSICAL EXAMINATION: GENERAL: At this time reveals a well-developed, but frail-appearing and chronically ill-appearing female who is in no acute distress. VITAL SIGNS: The patient at this time is afebrile, temperature is 98.9, but has had a temperature to 101.2 when admitted to the emergency room. Pulse 74 per minute, respirations 13, blood pressure 118/62 and pulse oximetry is 98% on room air. SKIN: Good skin turgor. There are no petechiae. The patient does have ecchymoses on her left forearm. HEENT: Normocephalic. No evidence of trauma. Pupils equal, round, reactive to light and accommodation. Sclerae nonicteric. Oral mucosa is moist without lesions. Tongue is well papillated. There is no gingival hyperplasia, no hypertrophy of Waldeyer's ring, no mucosal telangiectasias. NECK: Supple, no jugular venous distention or thyroid enlargement. CHEST: Clear to auscultation and percussion. No rhonchi, wheezes, rales or rubs. There is no pain on percussion of the spine, sternum, clavicles or ribs. BREASTS: Atrophic, no masses, skin retraction, or nipple inversion. There is a port in the right anterior chest in the subclavicular area. This has been accessed. HEART: Regular sinus rhythm, no S3 or S4. There is a grade III/ systolic murmur heard along the left sternal border and radiating to the left carotid. ABDOMEN: Distended and firm. No distinct masses. There is a stoma in the left mid abdomen. Bowel sounds are absent. EXTREMITIES: No clubbing, edema or cyanosis. No palpable cords or Homans sign. NEUROLOGIC: Normal except for generalized weakness. DISCUSSION: This patient has recurrent gastric carcinoma with abdominal carcinomatosis. I have reviewed the patient's peripheral smear. Red blood cells appear normal. White blood cells are mildly increased with increased numbers of bands. There is toxic granulation present and Dohle bodies present. There are no immature neutrophils, no hypersegmented polys, no nucleated red blood cells. Lymphocytes are normal in number and morphology. Platelets are normal as well. At this time, it is not clear what the source of the patient's fever may be. She does not complain of dysuria or any other localizing symptoms. It is possible that the fever is related to tumor, but usually this coincides with liver involvement, which this patient does not appear to have. CT scan of the abdomen and pelvis does not demonstrate any hepatic metastases. There is a small volume of abdominal pelvic ascites, but this has improved as compared to a previous examination. The patient does understand that the only therapy available is chemotherapy and/ or immunotherapy with agents such as Cyramza. She understands that all therapy at this time is palliative only. We will try to contact her oncologist at the [facility] to determine what his plans were for future therapy. The patient feels it would be more advantageous for her to continue therapy locally. Once again, thank you very much for the opportunity of participating in the medical care of this very interesting and pleasant patient. I will be happy to follow this patient with you and assist in her oncologic evaluation and follow up as necessary. Dictated By: RADHA RODRIGUES MD, SR/OH Conf#: [id number] DID#: [id number] MTDD
--- NOTE | 2016-10-17 16:33 | CONS ---
Date/Time of Note Date/Time of Note DATE: 10/17/16 TIME: 16:31 Assessment/Plan Assessment/Plan Chief Complaint/Hosp Course ID PROGRESS NOTE TOTAL ABX DAY # => Vanco IV + Zosyn 10/17/16 0738 10/17/16 0738 24H INTERVAL SUMMARY * A/A/O frail appearing 66 yo F wearing isolation yellow face mask, reports some SOB due to occasional palpitations, denies need for supplemental O2 * There are 12 family members in the room, it is crowded, she is surrounded with family love and care * CT CHEST 10/16/16 IMPRESSION: 1. Right-sided chemo port in place. 2. Patchy interstitial infiltrates in the lung bases bilaterally representing edema versus pneumonia. 3. Small bilateral pleural effusions, greater on the right. 4. Small volume free peritoneal fluid in the upper abdomen. 5. Atherosclerotic vascular calcifications. PHYSICAL EXAMINATION: GENERAL: VSS,NAD, no fevers HEENT: Unremarkable NECK: Supple, trach-> midline CHEST: Equal chest rise bilaterally, without dyspnea on observation HEART: Pulse RRR ABDOMEN: Soft, benign EXTREMITIES: Warm, SKIN: Warm, dry ID ASSESSMENT: 66 yo F w/PMHx admitted with: 1. Gastric cancer- STG IV * Status post partial gastrectomy and partial colectomy. * Status post palliative ileostomy. * Chemo Tx planned @ [facility] 10/15/16 aborted due to fevers 2. SIRS w/fevers, leukocytosis, ESR 64 * Blood & urine Cx (-) preliminary 3. Pulmonary edema w/likely superimposed developing HCAP 4. s/p Intractable nausea, vomiting, and abdominal pain-> Improved w/Fentanyl Patch + Zofran 5. Hypertension. 6. Anemia & Thrombocytopenia (-)MRSA NARES INVASIVES: * PIV / Chemo Port ABX ALLERGIES: KNDA CURRENT ABX: DAY # Vanco IV + Zosyn ID RECOMMENDATIONS: 1. Continue current ABX and repeat CXR Wednesday 2. Watch PLTs on Vanco/Zosyn 3.Watch renal fx on Vanco IV + Zosyn renally cleared ABX -- De-escalate CARMINA . Problems: Consultation Date/Type/Reason Admit Date/Time Oct 16, 2016 at 08:57 Initial Consult Date Exam/Review of Systems Vital Signs Vitals Vital Signs Date Time Temp Pulse Resp B/P Pulse Ox O2 Delivery O2 Flow Rate FiO2 10/17/16 08:00 98.1 83 18 131/60 98 10/16/16 18:20 Room Air Intake and Output 10/16/16 10/16/16 10/17/16 15:00 23:00 07:00 Intake Total 350 ml Output Total 300 ml Balance 50 ml Results Result Diagram: 10/17/16 0738 10/17/16 0738 Results 24 hrs Laboratory Tests Test 10/17/16 07:38 White Blood Count 8.3 # Red Blood Count 3.13 L Hemoglobin 9.1 L Hematocrit 28.3 L Mean Corpuscular Volume 90.4 Mean Corpuscular Hemoglobin 29.1 Mean Corpuscular Hemoglobin Concent 32.2 Red Cell Distribution Width 13.8 Platelet Count 321 Mean Platelet Volume 9.4 Neutrophils % 81.5 H Lymphocytes % 10.2 L Monocytes % 7.0 Eosinophils % 0.5 Basophils % 0.4 Nucleated Red Blood Cells % 0.0 Neutrophils # 6.8 Lymphocytes # 0.9 Monocytes # 0.6 Eosinophils # 0.0 Basophils # 0.0 Nucleated Red Blood Cells # 0.0 Erythrocyte Sedimentation Rate 64 H Sodium Level 138 Potassium Level 3.7 Chloride Level 101 Carbon Dioxide Level 25 Anion Gap 16 Blood Urea Nitrogen 9 Creatinine 0.55 Glucose Level 65 L Calcium Level 8.1 L Total Bilirubin 0.3 Direct Bilirubin 0.00 Indirect Bilirubin 0.3 Aspartate Amino Transf (AST/SGOT) 33 Alanine Aminotransferase (ALT/SGPT) 23 Alkaline Phosphatase 209 H Total Protein 6.5 # Albumin 2.6 L Globulin 3.90 H Albumin/Globulin Ratio 0.66 Medications Medications Current Medications Piperacillin Sod/ Tazobactam Sod 100 ml @ 200 mls/hr Q8 IVPB Last administered on 10/17/16 13:13; Admin Dose 200 MLS/HR; Start 10/16/16 at 14:00 Vancomycin HCl/ Sodium Chloride (Vancocin/NS) 250 ml @ 83.333 mls/ hr Q24H IVPB Last administered on 10/17/16 02:27; Admin Dose 83.333 MLS/HR; Start at 02:00 Clonidine HCl (Catapres-Tts 1 Patch) 1 patch Q7D TRANSDERM Last administered on 10/17/16 06:31; Admin Dose 1 PATCH; Start 10/17/16 at 06:00 BRYAN LEWIS NP Oct 17, 2016 16:33
[2016-10-17] MEDS ORDERED: DEXTROSE 5%-0.9% NACL 1,000 ML IV SCH (19:00)
[2016-10-17] MEDS: ONDANSETRON 4 MG INJ IV PRN (19:33)
[2016-10-17 19:48] VITALS: BP 132/82; PULSE 77; RESP 18
[2016-10-17] MEDS: DEXTROSE 5%-0.9% NACL 1,000 ML IV SCH (23:00)
[2016-10-18] MEDS: VANCOMYCIN 1.25 GM in SOD CHLORIDE 0.9% 250 ML IVPB SCH (02:16)
[2016-10-18] MEDS: PIPER-TAZO 3.375 GM IV (PMX) 100 ML IVPB SCH ×3 (06:05→22:03)
--- NOTE | 2016-10-18 06:53 | PN ---
DATE: 10/17/2016 SUBJECTIVE: The patient awake, alert. She states that she feels her abdomen is distended. She fee ls that she cannot pass her gas. She is in no pain at this time. The patient has a history of carc inoma of the stomach and her distention is probably due to abdominal carcinomatosis. HEART: Normal sinus rhythm. CHEST: Clear to A and P. ABDOMEN: Slightly distended. Liver, kidneys, spleen are not palpable. Bowel sounds are normal. T here are no intraabdominal masses or bruits. EXTREMITIES: Legs no ankle edema. No pretibial and dorsal pedal edema. VITAL SIGNS: The patient's temperature is 99.3, blood pressure is 132/82, pulse is 83, respiratory rate is 18. Intake and output was 350/300. LABORATORY DATA: White blood cell count 8300, hemoglobin 9.1, hematocrit 28.3, platelet count is no rmal. Sed rate is 64. INR is 1.15, PTT is 31.9. Electrolytes: Sodium 138, potassium 3.7, chlorid e 101, carbon dioxide 25, BUN 9, creatinine 0.55, glucose 65, which is low. Lactic acid 0.7, calciu m 8.1, which is low, Urine test 2+ urine bilirubin, urine is normal. Urine culture shows no growth after 24 hours. Blood culture shows no growth after 1 day. There was blood culture x2. CAT scan o f the chest reveals right-sided chemo port, patchy interstitial infiltrates in the lung bases bilat erally representing edema versus pneumonia, small bilateral pleural effusion, greater on the right, small finding in preperitoneal fluid in the upper abdomen, atherosclerotic vascular calcification. CAT scan of the abdomen and pelvis, persistent distended loop of distal ileum with visualization and abnormal C loop configuration within the pelvis, persistent distended loop of distal ileum with loc alizing abnormal C loop configuration within the pelvis and left lower quadrant loop ileostomy, smal l volume abdominal pelvic ascites, improved when compared to the previous examination, status post h ysterectomy, small bilateral pleural effusion and bibasilar atelectasis versus pneumonia. Chest x-r ay reveals right-sided chest port with tip of the catheter in the cavoatrial junction region, calcif ied thoracic aortic arch, chronic lung changes, right medial basal subsegmental atelectasis, a super imposed infiltrate cannot be excluded, small left pleural effusion with basilar compressive subsegme ntal atelectasis, degenerative changes within the spine. ASSESSMENT AND PLAN: The patient is getting Mylicon for her abdominal distention and the possibilit y of incomplete small-bowel obstruction must be entertained. Dictated By: PATRICIA PRECIADO/OH Conf#: [id number] DID#: [id number]
[2016-10-18 08:14] VITALS: BP 139/65; RESP 19
[2016-10-18] MEDS: DEXTROSE 5%-0.9% NACL 1,000 ML IV SCH ×2 (08:55→22:04)
--- NOTE | 2016-10-18 09:38 | PN ---
DATE: 10/18/2016 HEMATOLOGY ONCOLOGY PROGRESS NOTE SUBJECTIVE: The patient states that she is feeling better. She has had no shaking chills. She has less abdominal pain although does have some crampy pain after eating. Is able to tolerate p.o. int merced. OBJECTIVE: VITAL SIGNS: Temperature 98.3, pulse 80, respirations 19, blood pressure 159/65, pulse oximetry 97% on room air. SKIN: No ecchymoses. No petechiae or rashes. HEENT: No mucosal lesions. No scleral icterus. NECK: Supple, no jugular venous distention or thyroid enlargement. CHEST: Clear to auscultation and percussion. No rhonchi, wheezes, rales, or rubs. NODES: No palpable lymphadenopathy. ABDOMEN: Soft, no masses, no ascites. Abdomen is distended. There is firmness in the upper abdome n above the stoma. Stoma is functioning. Bowel sounds are decreased. EXTREMITIES: No clubbing, edema, or cyanosis. No palpable cords or Homans sign. NEUROLOGIC: Normal. The patient had an intake yesterday of 2510. Of that, 960 mL were oral. She did have 1 emesis of 2 00 mL. ASSESSMENT: 1. 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 2. Partial bowel obstruction, resolving. PLAN: We will continue present therapy. We will contact [facility] in a.m. to determine what dakota ns were made regarding further therapy. As noted previously, the patient is interested in continuin g therapy locally. Dictated By: RADHA RODRIGUES MD, SR/NTS Conf#: [id number] DID#: [id number]
[2016-10-18] MEDS: ONDANSETRON 4 MG INJ IV PRN (18:26)
[2016-10-18 19:56] VITALS: BP 149/70; RESP 18
--- NOTE | 2016-10-18 22:06 | CONS ---
Date/Time of Note Date/Time of Note DATE: 10/18/16 TIME: 22:03 Assessment/Plan Assessment/Plan Chief Complaint/Hosp Course ID PROGRESS NOTE TOTAL ABX DAY # => Vanco IV + Zosyn 24H INTERVAL SUMMARY * Rounding late, patient is currently resting with eyes closed * Per notes, ABD slightly distended, she reported improvement in ABD pain earlier today * DX: Partial ileus, pulm edema w/possible PNA * 10/17/16 0738 10/17/16 0738 PHYSICAL EXAMINATION: GENERAL: VSS,NAD, no fevers HEENT: Unremarkable NECK: Supple, trach-> midline CHEST: Equal chest rise bilaterally, without dyspnea on observation HEART: Pulse RRR ABDOMEN: Soft, benign EXTREMITIES: Warm, SKIN: Warm, dry ID ASSESSMENT: 66 yo F admitted with: 1. Gastric cancer- STG IV * Status post partial gastrectomy and partial colectomy. * Status post palliative ileostomy. * Chemo Tx planned @ [facility] 10/15/16 aborted due to fevers 2. SIRS w/fevers, leukocytosis, ESR 64 * Blood & urine Cx (-) preliminary 3. Pulmonary edema w/likely superimposed developing HCAP 4. s/p Intractable nausea, vomiting, and abdominal pain-> Improved w/Fentanyl Patch + Zofran 5. Hypertension. 6. Anemia & Thrombocytopenia (-)MRSA NARES INVASIVES: * PIV / Chemo Port ABX ALLERGIES: KNDA CURRENT ABX: DAY # Vanco IV + Zosyn ID RECOMMENDATIONS: 1. Continue current ABX and repeat CXR Wednesday 2. Watch PLTs on Vanco/Zosyn 3.Watch renal fx on Vanco IV + Zosyn renally cleared ABX -- De-escalate CARMINA . Problems: Consultation Date/Type/Reason Admit Date/Time Oct 16, 2016 at 08:57 Exam/Review of Systems Vital Signs Vitals Vital Signs Date Time Temp Pulse Resp B/P Pulse Ox O2 Delivery O2 Flow Rate FiO2 10/18/16 19:56 97.6 78 18 149/70 98 10/17/16 19:48 Room Air Intake and Output 10/17/16 10/17/16 10/18/16 15:00 23:00 07:00 Intake Total 200 ml 460 ml 1850 ml Output Total 100 ml 100 ml 200 ml Balance 100 ml 360 ml 1650 ml Results Result Diagram: 10/17/16 0738 10/17/16 0738 Medications Medications Current Medications Piperacillin Sod/ Tazobactam Sod 100 ml @ 200 mls/hr Q8 IVPB Last administered on 10/18/16 14:35; Admin Dose 200 MLS/HR; Start 10/16/16 at 14:00 Vancomycin HCl/ Sodium Chloride (Vancocin/NS) 250 ml @ 83.333 mls/ hr Q24H IVPB Last administered on 10/18/16 02:16; Admin Dose 83.333 MLS/HR; Start at 02:00 Clonidine HCl 1 patch 1 patch Q7D TRANSDERM Last administered on 10/17/16 06: 31; Admin Dose 1 PATCH; Start 10/17/16 at 06:00 Dextrose/Sodium Chloride (D5-NS) 1,000 ml @ 80 mls/hr [id number] IV Last administered on 10/18/16 08:55; Admin Dose 80 MLS/HR; Start 10/17/16 at 23:00 Ondansetron HCl (Zofran Inj) 4 mg Q4H PRN IV NAUSEA AND/OR VOMITING Last administered on 10/18/16 18:26; Admin Dose 4 MG; Start 10/17/16 at 19:00 Simethicone (Mylicon) 160 mg Q4 PRN PO DISTENSION/GAS/BLOATING; Start 10/18/16 at 05:00 Miscellaneous Information (*Rx Drug Level Order Reminder*) VANCOMYCIN TROUGH AT 0100 ONCE ONCE XX ; Start 10/19/16 at 01:00; Stop 10/19/16 at 01:01 BRYAN LEWIS NP Oct 18, 2016 22:06
--- NOTE | 2016-10-18 23:28 | PN ---
DATE: 10/18/2016 SUBJECTIVE: The patient is awake and alert. The patient vomited today. She complains of pain in h er abdomen only when she wants to vomit. OBJECTIVE: HEART: Normal sinus rhythm. There is a grade I/ apical systolic murmur. CHEST: Clear to A and P. ABDOMEN: Liver, kidneys, spleen are not palpable. Bowel sounds are normal. There are no intraabdo beth masses or bruits. The patient has generalized tenderness in the abdomen. EXTREMITIES: No ankle edema. VITAL SIGNS: She is afebrile, blood pressure 149/70, pulse 81, respiratory rate 19, pulse ox 98%. Intake and output: 2510 intake, 400 output. LABORATORY DATA: Sed rate 64. Urine culture: No growth after 48 hours. Blood culture: No growth after 2 days. Records being sought from [facility] to see what they plan to do next about this patient's g astric carcinoma with metastasis. It is felt that her vomiting may be due to abdominal carcinomatos is; however, obstruction due to adhesions must also be entertained. Dictated By: PATRICIA SCHAFFER MD WR/NTS Conf#: [id number] DID#: [id number] CC: KOBY FRANCO MD;*EndCC*
[2016-10-19] MEDS: VANCOMYCIN 1.25 GM in SOD CHLORIDE 0.9% 250 ML IVPB SCH (02:23)
[2016-10-19] MEDS: PIPER-TAZO 3.375 GM IV (PMX) 100 ML IVPB SCH ×2 (05:34→14:37)
[2016-10-19 07:46] VITALS: BP 135/68; RESP 16
--- NOTE | 2016-10-19 09:20 | CONS ---
DATE OF ADMISSION: 10/16/2016 DATE OF CONSULTATION: 10/19/2016 TYPE OF CONSULTATION: Oncology progress HISTORY OF PRESENT ILLNESS: The patient states she is not having pain, but does state that she had large bilious emesis last night. This is not recorded in the [facility]. The patient states that she feels she has "gas but no actual pain." PHYSICAL EXAMINATION: VITAL SIGNS: Temperature 97.4, pulse 80 per minute, respirations 16, blood pressure 135/68, pulse o ximetry 96% on room air. SKIN: No ecchymoses. No petechiae or rashes. HEENT: No mucosal lesions. No scleral icterus. NECK: Supple. No jugular venous distention or thyroid enlargement. CHEST: Clear to auscultation and percussion. No rhonchi, wheezes, rales or rubs. NODES: No palpable lymphadenopathy. HEART: Regular sinus rhythm. No S3, S4 or murmurs. ABDOMEN: Mildly distended. There is a stoma in the left mid abdomen that is putting out mostly liq uid. There is an area of firmness on the left side of the abdomen surrounding the area of the stoma but not on the right. Bowel sounds are present. EXTREMITIES: Good range of motion. No clubbing, edema or cyanosis. No palpable cords or Homans sig n. NEUROLOGIC: Normal. ASSESSMENT: 1. 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 2. Intermittent bowel obstruction secondary to #1. PLAN: Will contact Dr. Morataya, who is the patient's oncologist at the [facility] to discuss further therapy for this patient. The patient does have symptoms of obstruction that may require NG suction. Dictated By: RADHA RODRIGUES MD SR/NTS Conf#: [id number] DID#: [id number]
--- NOTE | 2016-10-19 10:04 | RADRPT ---
PROCEDURE: XR Chest. CLINICAL INDICATION: SOB TECHNIQUE: PA and lateral views of the chest were obtained COMPARISON: Chest 10/16/2016 FINDINGS: There is a right infusion port catheter unchanged in position. Again noted are bilateral small pleu ral effusions. Increased density at left base is unchanged may all be due to atelectasis or basilar infiltrate cannot be excluded. Remainder lungs are clear. Heart normal size without pulmonary vas cular congestion and pneumothorax. There is atherosclerosis of thoracic aorta. IMPRESSION: 1. No significant change. 2. Bilateral small pleural effusions. 3. No change left basilar patchy density which may all be due to atelectasis however left basilar i nfiltrate cannot be excluded. RPTAT:AAJJ Physician Vicky Date Time Electronically viewed and signed by Physician Vicky on 10/19/2016 10:04 BM/
[2016-10-19 11:28] LABS: ADD SCAN DIFF NO
[2016-10-19 11:42] LABS: ALBUMIN 2.7 g/dl (3.3-4.9)
[2016-10-19 11:43] LABS: BASOPHILS % 0.3 % (0.0-2.0); EOSINOPHILS % 0.3 % (0.0-7.0); HEMATOCRIT 28.2 % (37.0-47.0); LYMPHOCYTES # 0.9 10^3/ul (0.8-2.9); LYMPHOCYTES % 13.7 % (15.0-51.0); MEAN CORPUSCULAR HEMOGLOBIN 28.8 pg (29.0-33.0); MEAN CORPUSCULAR HGB CONC 31.9 g/dl (32.0-37.0); MEAN CORPUSCULAR VOLUME 90.1 fl (82.0-101.0); MEAN PLATELET VOLUME 9.3 fl (7.4-10.4); MONOCYTE # 0.7 10^3/ul (0.3-0.9); MONOCYTES % 9.9 % (0.0-11.0); NEUTROPHIL # 5.2 10^3/ul (1.6-7.5); NEUTROPHILS % 75.7 % (39.0-77.0); PLATELET COUNT 302 10^3/UL (140-415); POTASSIUM 3.2 mmol/L (3.5-5.1); RED BLOOD COUNT 3.13 10^6/ul (4.20-5.40); WHITE BLOOD COUNT 6.9 10^3/ul (4.8-10.8)
[2016-10-19 11:45] LABS: ALBUMIN/GLOBULIN RATIO 0.69; BILIRUBIN,INDIRECT 0.3 mg/dl (0-1.1); BILIRUBIN,TOTAL 0.3 mg/dl (0.2-1.3); CREATININE 1.05 mg/dl (0.44-1.00); TOTAL PROTEIN 6.6 g/dl (6.1-8.1)
[2016-10-19 11:46] LABS: CALCIUM 8.2 mg/dl (8.4-10.2)
[2016-10-19] MEDS: DEXTROSE 5%-0.9% NACL 1,000 ML IV SCH ×3 (12:30→17:18)
[2016-10-19] MEDS: ONDANSETRON 4 MG INJ IV PRN (14:37)
[2016-10-19] MEDS ORDERED: POTASSIUM CHLORIDE 20 MEQ in SOD CHLORIDE 0.9% 100 ML IVPB ONE (18:30)
--- NOTE | 2016-10-19 19:14 | CONS ---
Date/Time of Note Date/Time of Note DATE: 10/19/16 TIME: 19:05 Assessment/Plan Assessment/Plan Chief Complaint/Hosp Course ID PROGRESS NOTE TOTAL ABX DAY # => Vanco IV + Zosyn 24H INTERVAL SUMMARY * No fevers, WBC down to 6.8, A/A/O she had mild cough this am, none current * S.Creatinine has doubled since yesterday on Vanco + Zosyn 3.375 combo * DX: Partial ileus, pulm edema w/possible PNA * 10/19/16 CXR IMPRESSION:1. No significant change.2. Bilateral small pleural effusions. 3. No change left basilar patchy density which may all be due to atelectasis however left basilar infiltrate cannot be excluded. 10/19/16 1120 10/19/16 1120 PHYSICAL EXAMINATION: GENERAL: VSS,NAD, no fevers HEENT: Unremarkable NECK: Supple, trach-> midline CHEST: Equal chest rise bilaterally, without dyspnea on observation HEART: Pulse RRR ABDOMEN: Soft, benign EXTREMITIES: Warm, SKIN: Warm, dry ID ASSESSMENT: 66 yo F admitted with: 1. Gastric cancer- STG IV * Status post partial gastrectomy and partial colectomy. * Status post palliative ileostomy. * Chemo Tx planned @ [facility] 10/15/16 aborted due to fevers 2. SIRS w/fevers, leukocytosis, ESR 64 = RESOLVING, WBC normal, no fevers * Blood & urine Cx (-) preliminary 3. Pulmonary edema w/likely superimposed developing HCAP 4. s/p Intractable nausea, vomiting, and abdominal pain-> Improved w/Fentanyl Patch + Zofran 5. Hypertension. 6. Anemia & Thrombocytopenia 7. Acute renal insufficiency => 10/19/16 S.Creatinine has doubled on Vanco + Zosyn 3.375 combo (-)MRSA NARES INVASIVES: * PIV / Chemo Port ABX ALLERGIES: KNDA CURRENT ABX: DAY # Vanco IV + Zosyn ID RECOMMENDATIONS: 1. DC Vanco IV/Zosyn combination -> S.Creatinine has doubled since yesterday on Vanco + Zosyn 3.375 combo 2. Patient is NPO on TPN, unable to taper to PO ABX * Start Doxy 100mg IV Q12 & Levaquin 500mg daily 3. F/u on renal fx in am -- hydrate . Problems: Consultation Date/Type/Reason Admit Date/Time Oct 16, 2016 at 08:57 Exam/Review of Systems Vital Signs Vitals Vital Signs Date Time Temp Pulse Resp B/P Pulse Ox O2 Delivery O2 Flow Rate FiO2 10/19/16 07:46 97.4 80 16 135/68 96 10/17/16 19:48 Room Air Intake and Output 10/18/16 10/18/16 10/19/16 14:59 22:59 06:59 Intake Total 100 ml 1680 ml 1190 ml Output Total 50 ml Balance 100 ml 1680 ml 1140 ml Results Result Diagram: 10/19/16 1120 10/19/16 1120 Results 24 hrs Laboratory Tests Test 10/19/16 01:01 10/19/16 11:20 Vancomycin Level Trough 13.4 White Blood Count 6.9 Red Blood Count 3.13 L Hemoglobin 9.0 L Hematocrit 28.2 L Mean Corpuscular Volume 90.1 Mean Corpuscular Hemoglobin 28.8 L Mean Corpuscular Hemoglobin Concent 31.9 L Red Cell Distribution Width 14.0 Platelet Count 302 Mean Platelet Volume 9.3 Neutrophils % 75.7 Lymphocytes % 13.7 L Monocytes % 9.9 Eosinophils % 0.3 Basophils % 0.3 Nucleated Red Blood Cells % 0.0 Neutrophils # 5.2 Lymphocytes # 0.9 Monocytes # 0.7 Eosinophils # 0.0 Basophils # 0.0 Nucleated Red Blood Cells # 0.0 Sodium Level 142 Potassium Level 3.2 L Chloride Level 107 Carbon Dioxide Level 27 Anion Gap 11 Blood Urea Nitrogen 7 Creatinine 1.05 H Glucose Level 117 Calcium Level 8.2 L Total Bilirubin 0.3 Direct Bilirubin 0.00 Indirect Bilirubin 0.3 Aspartate Amino Transf (AST/SGOT) 47 H Alanine Aminotransferase (ALT/SGPT) 28 Alkaline Phosphatase 327 H Total Protein 6.6 Albumin 2.7 L Globulin 3.90 H Albumin/Globulin Ratio 0.69 Medications Medications Current Medications Piperacillin Sod/ Tazobactam Sod 100 ml @ 200 mls/hr Q8 IVPB Last administered on 10/19/16 14:37; Admin Dose 200 MLS/HR; Start 10/16/16 at 14:00 Vancomycin HCl/ Sodium Chloride (Vancocin/NS) 250 ml @ 83.333 mls/ hr Q24H IVPB Last administered on 10/19/16 02:23; Admin Dose 83.333 MLS/HR; Start at 02:00 Clonidine HCl (Catapres-Tts 1 Patch) 1 patch Q7D TRANSDERM Last administered on 10/17/16 06:31; Admin Dose 1 PATCH; Start 10/17/16 at 06:00 Ondansetron HCl 4 mg 4 mg Q4H PRN IV NAUSEA AND/OR VOMITING Last administered on 10/19/16 14:37; Admin Dose 4 MG; Start 10/17/16 at 19:00 Total Parenteral Nutrition 1,000 ml @ 40 mls/hr Q24H IV ; Start 10/19/16 at 18: 30 Potassium Chloride/Sodium Chloride (KCl/NS) 110 ml @ 55 mls/hr ONCE ONCE IVPB ; Start 10/19/16 at 18:30; Stop 10/19/16 at 20:29 Fentanyl (Duragesic 12 Mcg/Hr Patch) 1 patch Q72H TRANSDERM ; Start 10/19/16 at 18:30; Status BRYAN AUGUSTIN [employer] CHIL[employer]OD COORDINATOR Oct 19, 2016 19:14
[2016-10-19] MEDS ORDERED: FENT1PAT7 TD (19:36)
[2016-10-19 19:48] VITALS: BP 144/67; RESP 18
--- NOTE | 2016-10-19 20:46 | RADRPT ---
PROCEDURE: XR Chest. CLINICAL INDICATION: Shortness of breath. TECHNIQUE: AP Portable chest. COMPARISON: 10/19/2016 FINDINGS: There is mild cardiomegaly. There is mild pulmonary vascular congestion. Hazy opacities are noted at the lung bases. The osseous structures are unremarkable. A right chest medication port and catheter are unchanged. A nasogastric tube tip is in the stomach. IMPRESSION: Mild pulmonary vascular congestion along with basilar opacities likely due to effusions and atelecta sis. RPTAT: HIKT .Pete Recio MD, MD Date Time Electronically viewed and signed by .Pete Recio MD, MD on 10/19/2016 20:46 .T/
[2016-10-19] MEDS: LEVOFLOXACIN 500MG/D5W (PMX) 100 ML IVPB SCH (21:11)
[2016-10-19] MEDS: FENTAnyl PATCH 12 MCG/HR TRANSDERM SCH (21:14)
--- NOTE | 2016-10-19 22:06 | PN ---
DATE: 10/19/2016 SUBJECTIVE: The patient is awake and alert. Reports that she has been vomiting several times today and is having diffuse abdominal pain and discomfort. The patient was not able to find a pharmacy that carries fentanyl patch after she was discharged last time and so she never did get any fentanyl since she was hospitalized last time. OBJECTIVE: VITAL SIGNS: Temperature 97.4, blood pressure 135/68, pulse of 80, respiration rate 16, O2 saturation 96% on room air. HEENT: Pupils equally round, reactive to light. Oropharynx clear. CHEST: Lungs are clear to auscultation. EXTREMITIES: There is a loud III/ holosystolic murmur in the anterior chest wall. ABDOMEN: Hypoactive bowel sounds. No distention. Diffuse tenderness. LABORATORY DATA: WBC 6.9, hemoglobin 9.0, hematocrit 28.2, platelet count 302, 000. The ESR was 64 two days ago. Her chemistry shows sodium of 142, potassium of 3.2, BUN of 7, creatinine of 1.05, and glucose of 117. Liver enzymes notable for decreased calcium and decreased albumin of 2.7. She now has a mildly elevated AST of 47 and increased alkaline phosphatase of 327. The patient had a chest x-ray done today that shows no significant change from previous chest x-ray. Bilateral small pleural effusion. There is unchanged left basilar patchy density, which may be due to atelectasis versus left basilar infiltrate. ASSESSMENT AND PLAN: 1. Intractable nausea, vomiting, and abdominal pain, most likely due to partial bowel obstruction due to increasing tumor load. Discussed treatment options with patient and she is willing to resume total parenteral nutrition with nasogastric suction. She is also requesting the resumption of fentanyl patch to control her pain and continuation of Zofran IV for her nausea. 2. Malnutrition from poor bowel function due to progressive intestinal tumor load. We will go ahead and start patient on total parenteral nutrition with intralipids for her ongoing malnutrition status. 3. Metastatic gastric carcinoma. Extensive time spent explaining to the patient and family that there is no cure for her current condition. The chemotherapy that we have to offer may prolong her life for weeks or months if at all and if she can tolerate side effect. The patient will discuss treatment options with Dr. Henderson further, but at this time she is willing to go ahead with chemotherapy with the understanding that she can stop at any time if the side effects are intolerable. 4. Heart murmur. Old but sounds louder now. Will check 2D-echo. Dictated By: KOBY FRANCO MD DP/NTS Conf#: [id number] DID#: [id number] MTDD
[2016-10-19] MEDS: DOXYCYCLINE 100 MG in SOD CHLORIDE 0.9% 250 ML IVPB SCH (22:27)
[2016-10-20] MEDS: TPN 1,000 ML IV SCH ×2 (00:04→18:02)
[2016-10-20 06:12] LABS: CREATININE 0.88 mg/dl (0.44-1.00)
[2016-10-20 06:16] LABS: ALBUMIN 2.6 g/dl (3.3-4.9)
[2016-10-20 06:17] LABS: POTASSIUM 3.6 mmol/L (3.5-5.1)
[2016-10-20 06:19] LABS: ALBUMIN/GLOBULIN RATIO 0.65; BILIRUBIN,INDIRECT 0.2 mg/dl (0-1.1); BILIRUBIN,TOTAL 0.2 mg/dl (0.2-1.3); CREATININE 0.93 mg/dl (0.44-1.00); TOTAL PROTEIN 6.6 g/dl (6.1-8.1)
[2016-10-20 06:20] LABS: CALCIUM 8.4 mg/dl (8.4-10.2)
[2016-10-20 07:47] VITALS: BP 140/79; RESP 20
[2016-10-20] MEDS: DOXYCYCLINE 100 MG in SOD CHLORIDE 0.9% 250 ML IVPB SCH ×2 (08:40→21:20)
[2016-10-20] MEDS: ACCU-CHEK XX SCH ×4 (08:54→21:00)
--- NOTE | 2016-10-20 13:48 | PN ---
Date/Time of Note Date/Time of Note DATE: 10/20/16 TIME: 13:45 Assessment/Plan VTE Prophylaxis VTE Prophylaxis Intervention: other (per primary) Lines/Catheters IV Catheter Type (from Nrs): portacath Assessment/Plan Assessment/Plan Pt being treated at [facility] for Stage IV gastric cancer. Dr. Henderson will try to get information from [facility] about what regimen she is currently getting. At this time she is feeling better since NG suction started and TPN begun. Chemotherapy plans tomorrow when more information is available. Subjective 24 Hr Interval Summary Free Text/Dictation Pt feels better since the decompression of the bowel by the NG suction. No vomiting. Exam/Review of Systems Vital Signs Vitals Vital Signs Date Time Temp Pulse Resp B/P Pulse Ox O2 Delivery O2 Flow Rate FiO2 10/20/16 07:47 98.9 140 20 140/79 96 10/17/16 19:48 Room Air Intake and Output 10/19/16 10/19/16 10/20/16 15:00 23:00 07:00 Intake Total 100 ml 2410 ml 490 ml Output Total 100 ml 500 ml Balance 100 ml 2310 ml -10 ml Exam Constitutional: alert, oriented Head: normocephalic Eyes: nl conjunctiva ENMT: nl lips & teeth Neck: supple Respiratory: clear to auscultation Cardiovascular: regular rate and rhythm Gastrointestinal: non-tender, soft Results Result Diagram: 10/19/16 1120 10/20/16 0528 Results 24 hrs Laboratory Tests Test 10/20/16 05:28 10/20/16 08:47 10/20/16 12:04 Sodium Level 144 Potassium Level 3.6 Chloride Level 107 Carbon Dioxide Level 28 Anion Gap 13 Blood Urea Nitrogen 8 Creatinine 0.93 Glucose Level 117 Calcium Level 8.4 Total Bilirubin 0.2 Direct Bilirubin 0.00 Indirect Bilirubin 0.2 Aspartate Amino Transf (AST/SGOT) 33 Alanine Aminotransferase (ALT/SGPT) 27 Alkaline Phosphatase 265 H Total Protein 6.6 Albumin 2.6 L Globulin 4.00 H Albumin/Globulin Ratio 0.65 Bedside Glucose 104 100 Medications Medications Current Medications Clonidine HCl (Catapres-Tts 1 Patch) 1 patch Q7D TRANSDERM Last administered on 10/17/16t 06:31; Admin Dose 1 PATCH; Start 10/17/16 at 06:00 Ondansetron HCl 4 mg 4 mg Q4H PRN IV NAUSEA AND/OR VOMITING Last administered on 10/19/16 14:37; Admin Dose 4 MG; Start 10/17/16 at 19:00 Total Parenteral Nutrition (Tpn) 1,000 ml @ 40 mls/hr Q24H IV Last administered on 10/20/16 00:04; Admin Dose 40 MLS/HR; Start 10/19/16 at 18:30 Fentanyl 1 patch 1 patch Q72H TRANSDERM Last administered on 10/19/16 21:14; Admin Dose 1 PATCH; Start 10/19/16 at 18:30 Doxycycline Hyclate 100 mg/ Sodium Chloride 250 ml @ 250 mls/hr Q12 IVPB Last administered on 10/20/16 08:40; Admin Dose 250 MLS/HR; Start 10/19/16 at 21:00 Levofloxacin/ Dextrose (Levaquin 500mg/ D5W 100 ml (Pmx)) 100 ml @ 100 mls/hr Q24H IVPB Last administered on 10/19/16 21:11; Admin Dose 100 MLS/HR; Start at 19:30 Hydromorphone HCl (Dilaudid) 1 mg Q4H PRN IV BREAKTHROUGH PAIN; Start 10/19/16 at 23:00 Diagnostic Test (Pha) (Accu-Chek) 1 ea Q4 XX ; Start 10/20/16 at 09:00 CHACHA LEDESMA MD Oct 20, 2016 13:47
[2016-10-20] MEDS: D5-NS + KCL 20 MEQ 1,000 ML IV SCH (18:03)
--- NOTE | 2016-10-20 19:47 | PN ---
DATE: 10/20/2016 SUBJECTIVE: Patient reports no nausea since placement of NG tube and being made n.p.o. She does reed ve new onset right upper quadrant abdominal pain and complains of increased shortness of breath when she is sleeping. This is improved with the oxygen by nasal cannula. OBJECTIVE VITAL SIGNS: Temperature 98.9, blood pressure 140/79, pulse of 75 to 140, respiration rate 20, O2 s aturation 96% on room air. HEENT: Pupils equally round, reactive to light. Oropharynx clear. CHEST: No chest wall tenderness. CARDIAC: Regular rate and rhythm. A III/ holosystolic murmur in the precordium. LUNGS: Bibasilar crackles, left greater than right. ABDOMEN: Active bowel sounds, soft, mild diffuse tenderness. Increased induration or firmness of t he right upper quadrant abdominal wall. LABORATORY DATA: Sodium 144, potassium 3.6, chloride 107, carbon dioxide 26, BUN 8, creatinine 0.93 , glucose 117. Serial glucose has been running 104, 100, and 106, despite the 10% dextrose in the T PN. ASSESSMENT AND PLAN: 1. Nausea and vomiting symptomatically improved with NG tube suction and bowel rest. Will continue TPN for now. 2. Stage IV gastric cancer. Chemotherapy plans per oncologist. Continue fentanyl for abdominal pa in. 3. Left lower lobe pneumonia, clinically stable on doxycycline and Levaquin. 4. Hypertension, controlled on clonidine transdermal. Dictated By: KOBY FRANCO MD DP/NTS Conf#: [id number] DID#: [id number]
[2016-10-20] MEDS: LEVOFLOXACIN 500MG/D5W (PMX) 100 ML IVPB SCH (19:51)
--- NOTE | 2016-10-20 19:56 | CONS ---
Date/Time of Note Date/Time of Note DATE: 10/20/16 TIME: 19:46 Assessment/Plan Assessment/Plan Chief Complaint/Hosp Course ID PROGRESS NOTE TOTAL ABX DAY # 5 => Doxy #2 + Levaquin #2 s/p 10/16 -10/19 => Vanco IV + Zosyn -DC'd due to rising S.creatinine S.Creatinine doubled on Vanco + Zosyn 3.375 combo 24H INTERVAL SUMMARY * New NGT place for stomach decompression -- partial ileus vs SBO * No fevers, WBC down to 6.8, S.Creatinine down to 0.9 today after DC of Vanco/ Zosyn combo * She remains on supplemental O2 via NC for dyspnea -- compressive ATX w/ bilateral effusions in addition to possibility of LLL PNA * 10/19/16 1120 10/20/16 0528 PHYSICAL EXAMINATION: GENERAL: VSS,NAD, no fevers HEENT: Unremarkable NECK: Supple, trach-> midline CHEST: Equal chest rise bilaterally, without dyspnea on observation HEART: Pulse RRR ABDOMEN: Soft, benign EXTREMITIES: Warm, SKIN: Warm, dry ID ASSESSMENT: 66 yo F admitted with: 1. Gastric cancer- STG IV * Status post partial gastrectomy and partial colectomy. * Status post palliative ileostomy. * Chemo Tx planned @ [facility] 10/15/16 aborted due to fevers 2. SIRS w/fevers, leukocytosis, ESR 64 = RESOLVING, WBC normal, no fevers * Blood & urine Cx (-) 3. Pulmonary edema w/likely superimposed developing HCAP 4. s/p Intractable nausea, vomiting, and abdominal pain-> due to ileus vs SBO 5. Hypertension. 6. Anemia & Thrombocytopenia 7. Acute renal insufficiency => 10/19/16 S.Creatinine has doubled on Vanco + Zosyn 3.375 combo from 0.55 to 1.05 (-)MRSA NARES INVASIVES: * PIV / Chemo Port ABX ALLERGIES: KNDA CURRENT ABX: DAY # 5 => Doxy #2 + Levaquin #2 Vanco IV + Zosyn-> 10/16 - 10/19 pm ID RECOMMENDATIONS: 1. Continue IV ABX for now -- at risk ASP due to vomiting w/NGT, LLL PNA w/SIRS on admission after emesis 2. Patient is NPO on TPN, unable to taper to PO ABX . . Problems: Consultation Date/Type/Reason Admit Date/Time Oct 16, 2016 at 08:57 Exam/Review of Systems Vital Signs Vitals Vital Signs Date Time Temp Pulse Resp B/P Pulse Ox O2 Delivery O2 Flow Rate FiO2 10/20/16 07:47 98.9 140 20 140/79 96 10/17/16 19:48 Room Air Intake and Output 10/19/16 10/19/16 10/20/16 15:00 23:00 07:00 Intake Total 100 ml 2410 ml 490 ml Output Total 100 ml 500 ml Balance 100 ml 2310 ml -10 ml Results Result Diagram: 10/19/16 1120 10/20/16 0528 Results 24 hrs Laboratory Tests Test 10/20/16 05:28 10/20/16 08:47 10/20/16 12:04 10/20/16 16:56 Sodium Level 144 Potassium Level 3.6 Chloride Level 107 Carbon Dioxide Level 28 Anion Gap 13 Blood Urea Nitrogen 8 Creatinine 0.93 Glucose Level 117 Calcium Level 8.4 Total Bilirubin 0.2 Direct Bilirubin 0.00 Indirect Bilirubin 0.2 Aspartate Amino Transf (AST/SGOT) 33 Alanine Aminotransferase (ALT/SGPT) 27 Alkaline Phosphatase 265 H Total Protein 6.6 Albumin 2.6 L Globulin 4.00 H Albumin/Globulin Ratio 0.65 Bedside Glucose 104 100 106 Medications Medications Current Medications Clonidine HCl (Catapres-Tts 1 Patch) 1 patch Q7D TRANSDERM Last administered on 10/17/16 06:31; Admin Dose 1 PATCH; Start 10/17/16 at 06:00 Ondansetron HCl 4 mg 4 mg Q4H PRN IV NAUSEA AND/OR VOMITING Last administered on 10/19/16 14:37; Admin Dose 4 MG; Start 10/17/16 at 19:00 Total Parenteral Nutrition (Tpn) 1,000 ml @ 40 mls/hr Q24H IV Last administered on 10/20/16 18:02; Admin Dose 40 MLS/HR; Start 10/19/16 at 18:30 Fentanyl 1 patch 1 patch Q72H TRANSDERM Last administered on 10/19/16 21:14; Admin Dose 1 PATCH; Start 10/19/16 at 18:30 Doxycycline Hyclate 100 mg/ Sodium Chloride 250 ml @ 250 mls/hr Q12 IVPB Last administered on 10/20/16 08:40; Admin Dose 250 MLS/HR; Start 10/19/16 at 21:00 Levofloxacin/ Dextrose (Levaquin 500mg/ D5W 100 ml (Pmx)) 100 ml @ 100 mls/hr Q24H IVPB Last administered on 10/19/16 21:11; Admin Dose 100 MLS/HR; Start at 19:30 Hydromorphone HCl (Dilaudid) 1 mg Q4H PRN IV BREAKTHROUGH PAIN; Start 10/19/16 at 23:00 Diagnostic Test (Pha) 1 ea 1 ea Q4 XX ; Start 10/20/16 at 09:00 Potassium Chloride/Dextrose/ Sod Cl (D5-NS + KCl 20 Meq) 1,000 ml @ 70 mls/hr [id number] IV Last administered on 10/20/16 18:03; Admin Dose 70 MLS/HR; Start at 18:00 BRYAN LEWIS [employer] TECHNICIAN Oct 20, 2016 19:56
[2016-10-20 20:29] VITALS: BP 145/96; RESP 18
[2016-10-20 21:23] LABS: ALBUMIN 2.6 g/dl (3.3-4.9)
[2016-10-20 21:24] LABS: POTASSIUM 3.6 mmol/L (3.5-5.1)
[2016-10-20 21:25] LABS: CREATININE 0.84 mg/dl (0.44-1.00)
[2016-10-20 21:26] LABS: ALBUMIN/GLOBULIN RATIO 0.65; BILIRUBIN,INDIRECT 0.1 mg/dl (0-1.1); BILIRUBIN,TOTAL 0.1 mg/dl (0.2-1.3); PHOSPHORUS 3.4 mg/dl (2.5-4.9); TOTAL PROTEIN 6.6 g/dl (6.1-8.1)
--- NOTE | 2016-10-20 21:26 | RADRPT ---
Echocardiogram Report Patient Name: ABDOUL RAMIREZ Gender: Female Date: 1950 Study Date: 20-Oct-2016 Independent Producer: Marni Yeager [facility] Location: 626 Ref. Physician: KOBY FRANCO Quality: Good Procedures: Transthoracic echocardiogram with complete 2D, M-Mode, and doppler examination. Indications: Murmur. 2D/M Mode Doppler Measurement Value Normal Ranges Measurement Value Normal Ranges LVIDd 2D 4.3 3.5 - 5.6 cm MEMO Vmax 1.1 cm2 LVIDs 2D 2.7 2.1 - 4.1 cm MEMO VTI 1.3 cm2 FS 2D 38.0 % AV Mean Lam 1.4 m/sec LVPWd 2D 0.8 0.6 - 1.1 cm AV Mean PG 10.0 mmHg IVSd 2D 0.7 0.6 - 1.1 cm AV Peak Lam 2.5 m/sec IVS/LVPW 2D 0.9 AV Peak PG 24.0 mmHg AoR Diam 2D 2.6 2.0 - 3.7 cm AV VTI 54.2 cm LA/Ao 2D 1 0 - 1 LVOT Mean Lam 0.6 m/sec EDV 2D 80.6 cm3 LVOT Mean PG 1.0 mmHg ESV 2D 19.2 cm3 LVOT Peak Lam 0.9 m/sec LA Dimen 2D 3.4 2.3 - 4.0 cm LVOT Peak PG 3.0 mmHg LVOT Diam 2.0 cm LVOT VTI 22.4 cm LVOT Area 3.1 cm2 MV E Peak Lam 0.9 m/sec MV A Peak Lam 1.0 m/sec MV E/A 0.9 MV Decel Time 218 msec MV E/A 0.9 TR Peak Lam 2.5 m/sec TR Peak PG 25.0 mmHg RVSP 28.0 mmHg Findings Left Ventricle: Normal left ventricular systolic function. Normal left ventricular cavity size. Normal left ventricular wall thickness. Ejection fraction is visually estimated at 55 %. Tissue Doppler/Mitral Doppler indices are consistent with impaired relaxation (Stage I diastolic dysfunction). Right Ventricle: Normal right ventricular size. Normal right ventricular systolic function. Left Atrium: The left atrium is normal in size. Right Atrium: Right atrium at upper limits of normal. Mitral Valve: Mitral valve leaflets appear mildly thickened. Moderate mitral annular calcification. Mild mitral valve regurgitation. Aortic Valve: Aortic sclerosis without stenosis. No aortic regurgitation. Tricuspid Valve: Normal appearance of the tricuspid valve. Estimated peak PA systolic pressure 28 mmHg. There is mild tricuspid regurgitation. Pulmonic Valve: Normal pulmonic valve appearance. Pericardium: Normal pericardium with no significant pericardial effusion. Aorta: Normal aortic root. IVC: Normal size and normal respiratory collapse consistent with normal right atrial pressure. Conclusions Normal left ventricular systolic function. Normal left ventricular cavity size. Normal left ventricular wall thickness. Ejection fraction is visually estimated at 55 %. Tissue Doppler/Mitral Doppler indices are consistent with impaired relaxation (Stage I diastolic dysfunction). Normal right ventricular size. Normal right ventricular systolic function. The left atrium is normal in size. Right atrium at upper limits of normal. Mild mitral valve regurgitation. Aortic sclerosis without stenosis. No aortic regurgitation. Estimated peak PA systolic pressure 28 mmHg. There is mild tricuspid regurgitation. Normal pericardium with no significant pericardial effusion. Electronically Signed By: Mane James 20-Oct-2016 21:26:05 -0700 Patient Name: ABDOUL RAMIREZ Study Date: 20-Oct-2016 [id number]
[2016-10-20 21:27] LABS: CALCIUM 8.6 mg/dl (8.4-10.2); MAGNESIUM 1.4 mg/dl (1.7-2.5)
[2016-10-21] MEDS: ACCU-CHEK XX SCH ×6 (01:00→21:00)
[2016-10-21] MEDS: HYDROmorphONE 1 MG/ML SYG IV PRN (01:04)
[2016-10-21] MEDS: ONDANSETRON 4 MG INJ IV PRN (01:32)
[2016-10-21] MEDS: D5-NS + KCL 20 MEQ 1,000 ML IV SCH ×2 (08:18→13:34)
[2016-10-21 08:28] VITALS: BP 110/61; RESP 16
[2016-10-21] MEDS: DOXYCYCLINE 100 MG in SOD CHLORIDE 0.9% 250 ML IVPB SCH ×2 (09:15→22:47)
--- NOTE | 2016-10-21 09:48 | CONS ---
DATE OF ADMISSION: 10/16/2016 DATE OF CONSULTATION: 10/21/2016 TYPE OF CONSULTATION: Medical oncology progress note. SUBJECTIVE: The patient is experiencing some complaints of headaches. Also has complaint of discom fort due to nasogastric tube. The patient states she is having difficulty sleeping, and actually is fearful of sleepy as she is afraid that she will not wake up. OBJECTIVE: VITAL SIGNS: Temperature 97.5, pulse 68 per minute and regular, respirations 18, blood pressure is 145/96. Pulse oximetry 100% on 2 liters of oxygen by nasal cannula. SKIN: Pale. No ecchymosis, no petechiae or rashes. HEENT: No mucosal lesions. No scleral icterus. There is a nasogastric tube in place in the left na ris. There is nasal oxygen in place. No mucosal lesions. No scleral icterus. NECK: Supple, no jugular venous distention or thyroid enlargement. CHEST: Clear except for decreased breath sounds in both bases. There are no rhonchi, wheezes, rale s or rubs. There is a port in place in the right anterior chest wall which has been accessed. There is no evidence of infection. HEART: Regular sinus rhythm, no S3, S4, or murmurs. No rubs. ABDOMEN: Flat, firm on the left side. There is a left-sided stoma. Bowel sounds are present. The re is no rebound tenderness. EXTREMITIES: Good range of motion. No clubbing, no edema or cyanosis. No palpable cords or Homans sign. NEUROLOGIC: Normal. ASSESSMENT: 1. 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 2. Bowel obstruction secondary to #1. PLAN: I have been able to discuss the patient's treatment with Dr. Morataya who has been her treating o ncologist at the [facility]. He states that his plan at this time has been to start the patient on weekly paclitaxel. He also wo uld use in addition, the monoclonal antibody Cyramza (ramucirumab). This is given every 2 weeks. He does feel that treatment should be initiated as soon as possible and feels has suggested that we initiate therapy here. I have discussed that with the patient. She is willing to proceed. We will require transfer to [address] [place] [address] for chemotherapy. Dictated By: RADHA RODRIGUES MD SR/OH Conf#: [id number] [facility]#: [id number]
--- NOTE | 2016-10-21 17:56 | PN ---
DATE: 10/21/2016 SUBJECTIVE: Patient is awake, alert. Had nausea and vomiting last night, but only the gas came up. OBJECTIVE: VITAL SIGNS: Temperature 100.1, blood pressure 100/61, pulse of 114, respiration rate 16, O2 saturation 92% on 2 liters nasal cannula. HEENT: within normal limits LUNGS: bibasilar crackles CARDIAC: regular rate and rhythm. 2/6 systolic murmur ABDOMEN: mild diffuse tenderness EXTREMITIES: no edema LABORATORY DATA: Blood sugar checked today ranges from 117 to 139. Her prealbumin is 5.2. ASSESSMENT AND PLAN: 1. Fever and decreased oxygen saturation in this patient who appears to have pneumonitis. I will add Xopenex nebulizer to patient's ongoing treatment and recheck a chest x-ray in the morning. Recheck a CBC. If patient's infections seems to be worsening, we may have to change her antibiotic regimen. Just in case this is some other source of infection besides the pneumonia, I will also check a set of blood cultures and urine culture. 2. Tachycardia, appears to be coming and going. I will recheck an EKG today and if it is sinus tachycardia, may consider anti-anxiety medications since patient reports some increased anxiety symptoms with insomnia last night. 3. Nausea and vomiting, clinically improved with NG tube suction. Patient had some bowel sounds, but appears to be still having nausea and vomiting, so will continue NG tube suction for now and I will continue to feed the patient through TPN. 4. Stage IV gastric cancer. Agree with plan to transfer patient to [facility] for chemotherapy. We should be able to continue her treatment for the pneumonia there. I will have to check with Dr. Henderson regarding whether keep patient can start chemotherapy with ongoing infection. 5. Disposition. Discussed with patient regarding the possibility of going to a [facility] or convalescent facility after her pneumonia and chemotherapy has been treated. The patient is agreeable to this because she admits to being scared when she goes home. FOLLOWUP: We will plan on discharge to snf facility when she is ready. Dictated By: KOBY FRANCO MD DP/NTS Conf#: [id number] DID#: [id number] MTDD
--- NOTE | 2016-10-21 18:06 | CONS ---
Date/Time of Note Date/Time of Note DATE: 10/21/16 TIME: 18:02 Assessment/Plan Assessment/Plan Chief Complaint/Hosp Course ID PROGRESS NOTE TOTAL ABX DAY # 6 => Doxy #3 + Levaquin #3 s/p 10/16 -10/19 => Vanco IV + Zosyn -DC'd due to rising S.creatinine 24H INTERVAL SUMMARY * Feeling better with NGT place for stomach decompression -- partial ileus vs SBO * Low grade temp 100.0. WBC down to 6.8, S.Creatinine down to 0.85 after Vanco/ Zosyn combo DC'd * She remains on supplemental O2 via NC for dyspnea -- compressive ATX w/ bilateral effusions in addition to possibility of LLL PNA PHYSICAL EXAMINATION: GENERAL: VSS,NAD, no fevers HEENT: Unremarkable NECK: Supple, trach-> midline CHEST: Equal chest rise bilaterally, without dyspnea on observation HEART: Pulse RRR ABDOMEN: Soft, benign EXTREMITIES: Warm, SKIN: Warm, dry ID ASSESSMENT: 66 yo F admitted with: 1. Gastric cancer- STG IV * Status post partial gastrectomy and partial colectomy. * Status post palliative ileostomy. * Chemo Tx planned @ [facility] 10/15/16 aborted due to fevers 2. SIRS w/fevers, leukocytosis, ESR 64 = RESOLVING, WBC normal, no fevers * Blood & urine Cx (-) 3. Pulmonary edema w/likely superimposed developing HCAP 4. s/p Intractable nausea, vomiting, and abdominal pain-> due to ileus vs SBO 5. Hypertension. 6. Anemia & Thrombocytopenia 7. Acute renal insufficiency => 10/19/16 S.Creatinine has doubled on Vanco + Zosyn 3.375 combo from 0.55 to 1.05 (-)MRSA NARES INVASIVES: * PIV / Chemo Port ABX ALLERGIES: KNDA CURRENT ABX: DAY # 6 => Doxy #3 + Levaquin #3 s/p 10/16 -10/19 => Vanco IV + Zosyn -DC'd due to rising S.creatinine ID RECOMMENDATIONS: 1. Continue IV ABX for now -- at risk ASP due to vomiting w/NGT, LLL PNA w/SIRS on admission after emesis 2. Patient is NPO on TPN, unable to taper to PO ABX 3. May TNS to SNF on ABX complete 10 day course for concern HCAP when cleared by primary provider . . Problems: Consultation Date/Type/Reason Admit Date/Time Oct 16, 2016 at 08:57 Exam/Review of Systems Vital Signs Vitals Vital Signs Date Time Temp Pulse Resp B/P Pulse Ox O2 Delivery O2 Flow Rate FiO2 10/21/16 08:28 100.1 114 16 110/61 92 10/21/16 08:00 Nasal Cannula 2.0 Intake and Output 10/20/16 10/20/16 10/21/16 15:00 23:00 07:00 Intake Total 1470 ml 1050 ml Output Total 1000 ml Balance 470 ml 1050 ml Results Result Diagram: 10/19/16 1120 10/20/16 2100 Results 24 hrs Laboratory Tests Test 10/20/16 21:00 10/20/16 21:22 10/21/16 01:10 10/21/16 05:30 Sodium Level 142 Potassium Level 3.6 Chloride Level 104 Carbon Dioxide Level 29 Anion Gap 13 Blood Urea Nitrogen 12 Creatinine 0.84 Glucose Level 103 Calcium Level 8.6 Phosphorus Level 3.4 Magnesium Level 1.4 L Total Bilirubin 0.1 L Direct Bilirubin 0.00 Indirect Bilirubin 0.1 Aspartate Amino Transf (AST/SGOT) 25 Alanine Aminotransferase (ALT/SGPT) 21 Alkaline Phosphatase 216 H Total Protein 6.6 Albumin 2.6 L Globulin 4.00 H Albumin/Globulin Ratio 0.65 Triglycerides Level 115 Bedside Glucose 92 123 Prealbumin 5.2 L Test 10/21/16 05:48 10/21/16 09:19 10/21/16 13:30 10/21/16 17:14 Bedside Glucose 132 139 123 117 Medications Medications Current Medications Clonidine HCl (Catapres-Tts 1 Patch) 1 patch Q7D TRANSDERM Last administered on 10/17/16 06:31; Admin Dose 1 PATCH; Start 10/17/16 at 06:00 Ondansetron HCl 4 mg 4 mg Q4H PRN IV NAUSEA AND/OR VOMITING Last administered on 10/21/16 01:32; Admin Dose 4 MG; Start 10/17/16 at 19:00 Total Parenteral Nutrition (Tpn) 1,000 ml @ 40 mls/hr Q24H IV Last administered on 10/20/16 18:02; Admin Dose 40 MLS/HR; Start 10/19/16 at 18:30 Fentanyl 1 patch 1 patch Q72H TRANSDERM Last administered on 10/19/16 21:14; Admin Dose 1 PATCH; Start 10/19/16 at 18:30 Doxycycline Hyclate 100 mg/ Sodium Chloride 250 ml @ 250 mls/hr Q12 IVPB Last administered on 10/21/16 09:15; Admin Dose 250 MLS/HR; Start 10/19/16 at 21:00 Levofloxacin/ Dextrose (Levaquin 500mg/ D5W 100 ml (Pmx)) 100 ml @ 100 mls/hr Q24H IVPB Last administered on 10/20/16 19:51; Admin Dose 100 MLS/HR; Start at 19:30 Hydromorphone HCl (Dilaudid) 1 mg Q4H PRN IV BREAKTHROUGH PAIN Last administered on 10/21/16 01:04; Admin Dose 1 MG; Start 10/19/16 at 23:00 Diagnostic Test (Pha) 1 ea 1 ea Q4 XX Last administered on 10/21/16 17:16; Admin Dose 1 EA; Start 10/20/16 at 09:00 Potassium Chloride/Dextrose/ Sod Cl (D5-NS + KCl 20 Meq) 1,000 ml @ 70 mls/hr [id number] IV Last administered on 10/21/16 13:34; Admin Dose 70 MLS/HR; Start at 18:00 Lorazepam (Ativan) 0.5 mg Q8H PRN IV anxiety, insomnia; Start 10/21/16 at 18:00 BRYAN LEWIS NP Oct 21, 2016 18:06
[2016-10-21] MEDS: TPN 1,000 ML IV SCH ×2 (18:30→21:40)
[2016-10-21 19:30] VITALS: BP 156/72; RESP 18
[2016-10-21] MEDS: LEVALBUTEROL (NEB) 0.31 MG/3 ML AMP HHN SCH (21:10)
[2016-10-21] MEDS: LEVOFLOXACIN 500MG/D5W (PMX) 100 ML IVPB SCH (21:40)
[2016-10-22] MEDS: LORAZEPAM 2 MG INJ IV PRN ×3 (00:57→22:19)
[2016-10-22] MEDS: LEVALBUTEROL (NEB) 0.31 MG/3 ML AMP HHN SCH ×2 (02:00→09:10)
[2016-10-22 06:16] LABS: ADD SCAN DIFF NO; BASOPHILS % 0.2 % (0.0-2.0); EOSINOPHILS % 0.2 % (0.0-7.0); HEMATOCRIT 27.6 % (37.0-47.0); HEMOGLOBIN 8.7 g/dl (12.0-16.0); LYMPHOCYTES # 1.5 10^3/ul (0.8-2.9); LYMPHOCYTES % 16.3 % (15.0-51.0); MEAN CORPUSCULAR HEMOGLOBIN 28.3 pg (29.0-33.0); MEAN CORPUSCULAR HGB CONC 31.5 g/dl (32.0-37.0); MEAN CORPUSCULAR VOLUME 89.9 fl (82.0-101.0); MEAN PLATELET VOLUME 9.6 fl (7.4-10.4); MONOCYTE # 0.8 10^3/ul (0.3-0.9); MONOCYTES % 8.6 % (0.0-11.0); NEUTROPHIL # 6.7 10^3/ul (1.6-7.5); NEUTROPHILS % 74.4 % (39.0-77.0); PLATELET COUNT 272 10^3/UL (140-415); RED BLOOD COUNT 3.07 10^6/ul (4.20-5.40); RED CELL DISTRIBUTION WIDTH 14.1 % (11.5-14.5)
[2016-10-22 06:39] LABS: POTASSIUM 3.7 mmol/L (3.5-5.1)
[2016-10-22 06:41] LABS: CREATININE 0.69 mg/dl (0.44-1.00)
[2016-10-22 06:42] LABS: PHOSPHORUS 3.3 mg/dl (2.5-4.9)
[2016-10-22 06:43] LABS: CALCIUM 8.5 mg/dl (8.4-10.2); MAGNESIUM 1.5 mg/dl (1.7-2.5)
[2016-10-22 07:41] VITALS: BP 145/70; RESP 18
[2016-10-22] MEDS: DOXYCYCLINE 100 MG in SOD CHLORIDE 0.9% 250 ML IVPB SCH ×2 (08:18→21:23)
[2016-10-22] MEDS: D5-NS + KCL 20 MEQ 1,000 ML IV SCH ×2 (08:19→12:03)
[2016-10-22] MEDS: ACCU-CHEK XX SCH ×2 (08:20→20:46)
--- NOTE | 2016-10-22 08:46 | RADRPT ---
PROCEDURE: XR Chest. CLINICAL INDICATION: Pneumonia TECHNIQUE: PA and lateral views of the chest were obtained. COMPARISON: Chest x-ray dated 10/19/[address] chest dated 10/16/2016 FINDINGS: The tip of the enteric tube extends below the left diaphragm. There is a right chest Port-A-Cath wit h tip in the mid SVC. There are small bilateral pleural effusions with bibasilar consolidation. No pneumothorax is seen. The cardiomediastinal silhouette is within normal limits for size. Calcifications are seen within t he aortic arch. The osseous structures are unremarkable. IMPRESSION: 1. Small bilateral pleural effusions with bibasilar atelectasis versus pneumonia, increased when co mpared to the prior chest x-ray. 2. Aortic atherosclerosis. 3. Tubes and lines, as described above. RPTAT: HH .Selene Cramer MD, MD Date Time Electronically viewed and signed by .Selene Cramer MD, on 10/22/2016 08:45 .G/
--- NOTE | 2016-10-22 09:01 | PN ---
Date/Time of Note Date/Time of Note DATE: 10/22/16 TIME: 08:54 Assessment/Plan VTE Prophylaxis VTE Prophylaxis Intervention: other (per primary) Lines/Catheters IV Catheter Type (from Nrs): PORT-A-CATH Assessment/Plan Assessment/Plan Pt to start Taxol and Cyramza once the pneumonitis has been treated. Stable at present. Continue current antibiotics. Subjective 24 Hr Interval Summary Free Text/Dictation Pt is about the same. She c/o some nausea and insomnia but meds help. Exam/Review of Systems Vital Signs Vitals Vital Signs Date Time Temp Pulse Resp B/P Pulse Ox O2 Delivery O2 Flow Rate FiO2 10/22/16 07:41 98.1 82 18 145/70 99 10/22/16 02:02 21 10/21/16 08:00 Nasal Cannula 2.0 Intake and Output 10/21/16 10/21/16 10/22/16 14:59 22:59 06:59 Intake Total 800 ml 750 ml 1250 ml Output Total 1500 ml 850 ml 950 ml Balance -700 ml -100 ml 300 ml Exam Constitutional: alert, oriented Head: normocephalic ENMT: other (NG in place) Neck: supple Respiratory: clear to auscultation Cardiovascular: regular rate and rhythm Gastrointestinal: non-tender, soft Results Result Diagram: 10/22/16 0540 10/22/16 0540 Results 24 hrs Laboratory Tests Test 10/21/16 09:19 10/21/16 13:30 10/21/16 17:14 10/22/16 05:40 Bedside Glucose 139 123 117 White Blood Count 9.0 # Red Blood Count 3.07 L Hemoglobin 8.7 L Hematocrit 27.6 L Mean Corpuscular Volume 89.9 Mean Corpuscular Hemoglobin 28.3 L Mean Corpuscular Hemoglobin Concent 31.5 L Red Cell Distribution Width 14.1 Platelet Count 272 Mean Platelet Volume 9.6 Neutrophils % 74.4 Lymphocytes % 16.3 Monocytes % 8.6 Eosinophils % 0.2 Basophils % 0.2 Nucleated Red Blood Cells % 0.0 Neutrophils # 6.7 Lymphocytes # 1.5 Monocytes # 0.8 Eosinophils # 0.0 Basophils # 0.0 Nucleated Red Blood Cells # 0.0 Sodium Level 143 Potassium Level 3.7 Chloride Level 106 Carbon Dioxide Level 27 Anion Gap 14 Blood Urea Nitrogen 16 Creatinine 0.69 Glucose Level 113 Calcium Level 8.5 Phosphorus Level 3.3 Magnesium Level 1.5 L Test 10/22/16 08:20 Bedside Glucose 99 Medications Medications Current Medications Clonidine HCl (Catapres-Tts 1 Patch) 1 patch Q7D TRANSDERM Last administered on 10/17/16 06:31; Admin Dose 1 PATCH; Start 10/17/16 at 06:00 Ondansetron HCl 4 mg 4 mg Q4H PRN IV NAUSEA AND/OR VOMITING Last administered on 10/21/16 01:32; Admin Dose 4 MG; Start 10/17/16 at 19:00 Total Parenteral Nutrition (Tpn) 1,000 ml @ 40 mls/hr Q24H IV Last administered on 10/21/16 21:40; Admin Dose 40 MLS/HR; Start 10/19/16 at 18:30 Fentanyl 1 patch 1 patch Q72H TRANSDERM Last administered on 10/19/16 21:14; Admin Dose 1 PATCH; Start 10/19/16 at 18:30 Doxycycline Hyclate 100 mg/ Sodium Chloride 250 ml @ 250 mls/hr Q12 IVPB Last administered on 10/22/16 08:18; Admin Dose 250 MLS/HR; Start 10/19/16 at 21:00 Levofloxacin/ Dextrose (Levaquin 500mg/ D5W 100 ml (Pmx)) 100 ml @ 100 mls/hr Q24H IVPB Last administered on 10/21/16 21:40; Admin Dose 100 MLS/HR; Start at 19:30 Hydromorphone HCl 1 mg 1 mg Q4H PRN IV BREAKTHROUGH PAIN Last administered on 01:04; Admin Dose 1 MG; Start 10/19/16 at 23:00 Potassium Chloride/Dextrose/ Sod Cl (D5-NS + KCl 20 Meq) 1,000 ml @ 70 mls/hr [id number] IV Last administered on 10/22/16 08:19; Admin Dose 70 MLS/HR; Start at 18:00 Lorazepam (Ativan) 0.5 mg Q8H PRN IV anxiety, insomnia Last administered on 00:57; Admin Dose 0.5 MG; Start 10/21/16 at 18:00 Diagnostic Test (Pha) (Accu-Chek) 1 ea Q12 XX ; Start 10/22/16 at 09:00 CHACHA LEDESMA MD Oct 22, 2016 09:01
--- NOTE | 2016-10-22 17:12 | CONS ---
Date/Time of Note Date/Time of Note DATE: 10/22/16 TIME: 17:08 Assessment/Plan Assessment/Plan Chief Complaint/Hosp Course ID PROGRESS NOTE TOTAL ABX DAY # 7 => Doxy #4 + Levaquin #4 s/p 10/16 -10/19 => Vanco IV + Zosyn -DC'd due to rising S.creatinine 24H INTERVAL SUMMARY * A/A/O -- still w/increased work of breathing, nauseous at times -- overall belly improved w/NGT place for stomach decompression -- partial ileus vs SBO * Spouse tells me he is concerned that she "chokes" at night -- makes noise like she needs air - patient tells me she is stable without O2, only has increased work of breathing sometimes -- not significant -- I encouraged her to use the O2 via NC if she fells SOB and she tells me she doesn't need it -- that her oxygen is level is normal and the "oxygen doesn't work" -- I discussed the fact that the O2 may not work due to the NGT present -- that she can put the O2 via NC over her mouth if she needs to when she sleeps. The patient does not feel this is necessary; however the spouse thinks this is a good idea. Spouse tells me this is not new, not related to the NGT, spouse does this. We also discussed the fact that she is NPO and taking her nutrition and fluids via IV - - this can lead to increased fluid in the lungs as fluids bypass the normal gut absorption and fluids tend to collect in the lowest pressure in the body which is the lungs. She also has mild diastolic dysfunction, is in bed, which may compromise * Afebrile today w/WBC up to 9.0 -- Tmax yesterday 100.0. WBC down to 6.8 * Repeat UA C&S (-) * She remains on supplemental O2 via NC for dyspnea -- compressive ATX w/ bilateral effusions in addition to possibility of LLL PNA * CXR 10/22: 1. Small bilateral pleural effusions with bibasilar atelectasis versus pneumonia, increased when compared to the prior chest x-ray. PHYSICAL EXAMINATION: GENERAL: VSS,NAD, no fevers HEENT: Unremarkable NECK: Supple, trach-> midline CHEST: Equal chest rise bilaterally, without dyspnea on observation HEART: Pulse RRR ABDOMEN: Soft, benign EXTREMITIES: Warm, SKIN: Warm, dry ID ASSESSMENT: 66 yo F admitted with: 1. Gastric cancer- STG IV * Status post partial gastrectomy and partial colectomy. * Status post palliative ileostomy. * Chemo Tx planned @ [facility] 10/15/16 aborted due to fevers 2. SIRS w/fevers, leukocytosis, ESR 64 = RESOLVING, WBC normal, no fevers * Blood & urine Cx (-) 3. Pulmonary edema w/likely superimposed developing HCAP 4. s/p Intractable nausea, vomiting, and abdominal pain-> due to ileus vs SBO 5. Hypertension. 6. Anemia & Thrombocytopenia 7. Acute renal insufficiency => 10/19/16 S.Creatinine has doubled on Vanco + Zosyn 3.375 combo from 0.55 to 1.05 (-)MRSA NARES INVASIVES: * PIV / Chemo Port ABX ALLERGIES: KNDA CURRENT ABX: DAY # 7 => Doxy #4 + Levaquin #4 s/p 10/16 -10/19 => Vanco IV + Zosyn -DC'd due to rising S.creatinine ID RECOMMENDATIONS: 1. Continue IV ABX for now -- at risk ASP due to vomiting w/NGT, LLL PNA w/SIRS on admission after emesis * CXR today with increase BLL Effusions/ATx vs PNA -- will continue to monitor for progression of PNA 2. Patient is NPO on TPN, unable to taper to PO ABX 3. May TNS to SNF on ABX complete 10 day course for concern HCAP when cleared by primary provider 4. Case d/w Dr. Saleem -- plan for CT ABD./CHEST -- will continue to observe for HCAP vs Aspiration. . . . Problems: Consultation Date/Type/Reason Admit Date/Time Oct 16, 2016 at 08:57 Exam/Review of Systems Vital Signs Vitals Vital Signs Date Time Temp Pulse Resp B/P Pulse Ox O2 Delivery O2 Flow Rate FiO2 10/22/16 09:11 96 21 10/22/16 08:00 Nasal Cannula 2.0 10/22/16 07:41 98.1 82 18 145/70 Intake and Output 10/21/16 10/21/16 10/22/16 15:00 23:00 07:00 Intake Total 800 ml 750 ml 1250 ml Output Total 1500 ml 850 ml 950 ml Balance -700 ml -100 ml 300 ml Results Result Diagram: 10/22/16 0540 10/22/16 0540 Results 24 hrs Laboratory Tests Test 10/21/16 17:14 10/22/16 05:40 10/22/16 08:20 Bedside Glucose 117 99 White Blood Count 9.0 # Red Blood Count 3.07 L Hemoglobin 8.7 L Hematocrit 27.6 L Mean Corpuscular Volume 89.9 Mean Corpuscular Hemoglobin 28.3 L Mean Corpuscular Hemoglobin Concent 31.5 L Red Cell Distribution Width 14.1 Platelet Count 272 Mean Platelet Volume 9.6 Neutrophils % 74.4 Lymphocytes % 16.3 Monocytes % 8.6 Eosinophils % 0.2 Basophils % 0.2 Nucleated Red Blood Cells % 0.0 Neutrophils # 6.7 Lymphocytes # 1.5 Monocytes # 0.8 Eosinophils # 0.0 Basophils # 0.0 Nucleated Red Blood Cells # 0.0 Sodium Level 143 Potassium Level 3.7 Chloride Level 106 Carbon Dioxide Level 27 Anion Gap 14 Blood Urea Nitrogen 16 Creatinine 0.69 Glucose Level 113 Calcium Level 8.5 Phosphorus Level 3.3 Magnesium Level 1.5 L Medications Medications Current Medications Clonidine HCl (Catapres-Tts 1 Patch) 1 patch Q7D TRANSDERM Last administered on 10/17/16 06:31; Admin Dose 1 PATCH; Start 10/17/16 at 06:00 Ondansetron HCl 4 mg 4 mg Q4H PRN IV NAUSEA AND/OR VOMITING Last administered on 10/21/16 01:32; Admin Dose 4 MG; Start 10/17/16 at 19:00 Total Parenteral Nutrition (Tpn) 1,000 ml @ 40 mls/hr Q24H IV Last administered on 10/21/16 21:40; Admin Dose 40 MLS/HR; Start 10/19/16 at 18:30 Fentanyl 1 patch 1 patch Q72H TRANSDERM Last administered on 10/19/16 21:14; Admin Dose 1 PATCH; Start 10/19/16 at 18:30 Doxycycline Hyclate 100 mg/ Sodium Chloride 250 ml @ 250 mls/hr Q12 IVPB Last administered on 10/22/16 08:18; Admin Dose 250 MLS/HR; Start 10/19/16 at 21:00 Levofloxacin/ Dextrose (Levaquin 500mg/ D5W 100 ml (Pmx)) 100 ml @ 100 mls/hr Q24H IVPB Last administered on 10/21/16 21:40; Admin Dose 100 MLS/HR; Start at 19:30 Hydromorphone HCl 1 mg 1 mg Q4H PRN IV BREAKTHROUGH PAIN Last administered on 01:04; Admin Dose 1 MG; Start 10/19/16 at 23:00 Potassium Chloride/Dextrose/ Sod Cl (D5-NS + KCl 20 Meq) 1,000 ml @ 70 mls/hr [id number] IV Last administered on 10/22/16 08:19; Admin Dose 70 MLS/HR; Start at 18:00 Lorazepam (Ativan) 0.5 mg Q8H PRN IV anxiety, insomnia Last administered on 13:42; Admin Dose 0.5 MG; Start 10/21/16 at 18:00 Diagnostic Test (Pha) (Accu-Chek) 1 ea Q12 XX ; Start 10/22/16 at 09:00 BRYAN LEWIS NP Oct 22, 2016 17:12
[2016-10-22] MEDS ORDERED: BARIUM SULF 2% 450 ML BTL (BERRY SMOOTHIE) PO ONE (18:30)
--- NOTE | 2016-10-22 19:06 | PN ---
DATE: 10/22/2016 SUBJECTIVE: The patient is awake, alert, reports that she had nausea and vomiting earlier today but mostly gas. No further shortness of breath on oxygen and episodic Xopenex treatment. OBJECTIVE: VITAL SIGNS: Temperature 98.1, blood pressure 145/70, pulse 82, respiration rate 18, O2 saturation 96% to 99% on 2 L nasal cannula. HEENT: Pupils equally round, reactive to light. Oropharynx clear. Left nasogastric tube draining green bilious material. CHEST: Left basilar crackles greater than right basilar crackles. CARDIAC: II/ systolic murmur throughout precordium. Regular rate and rhythm. ABDOMEN: Active bowel sounds. No distention. Mild diffuse tenderness. Left abdominal ileostomy w ithin normal limits. EXTREMITIES: No clubbing, cyanosis or edema. LABORATORY DATA: WBC 9.0, hemoglobin 8.7, hematocrit 27.6, platelet count 272,000. Sodium 143, pot assium 3.7, BUN 16, creatinine 0.69, glucose 113 with a range of 99 to 139 on TPN. Her calcium is 8 .5. Her phosphorus is 3.3, and magnesium is low at 1.5. The patient's radiology report: Chest x-ray done early this morning showed small bilateral pleural effusions with bibasilar atelectasis versus pneumonia, increased when compared to prior chest x-ray. ASSESSMENT AND PLAN: 1. Pneumonitis versus effusion. The patient still has intermittent fever and worsening chest x-ray on IV Levaquin and doxycycline. I will check a chest CT with contrast to clarify whether or not th bill are infiltrates versus effusion. If patient has a lot of effusion, we may consider thoracentesi s for diagnostic purposes as well as palliative purposes. 2. Persistent nausea, vomiting may be due to obstructive pathology from the recurrence of the gastr ic cancer. I will check abdominal CT to see if this is the case. We may also have to consider star ting her on Reglan regularly 3 times a day to see if we can improve her intestinal motility and cont rol the nausea symptoms. In the meantime will have to continue with TPN and intralipids for nutriti on. 3. Stage IV gastric cancer. Will need to complete treatment for pneumonitis prior to initiating ch emotherapy. 4. Hypomagnesemia. Replace IV, recheck in a.m. 5. Heart murmur. 2D echo shows some mild mitral valve regurgitation and aortic sclerosis without s tenosis or regurgitation. Otherwise, she has mild stage I diastolic dysfunction and no pericardial effusion. Dictated By: KOBY PLUNKETT/OH Conf#: [id number] DID#: [id number]
[2016-10-22] MEDS: LEVOFLOXACIN 500MG/D5W (PMX) 100 ML IVPB SCH (19:54)
[2016-10-22 19:57] VITALS: BP 156/88; RESP 16
[2016-10-22] MEDS ORDERED: MAGNESIUM SULFATE 2 GM/50 ML 50 ML IVPB ONE (20:00)
[2016-10-22] MEDS: FENTAnyl PATCH 12 MCG/HR TRANSDERM SCH (20:05)
[2016-10-23] MEDS: METOCLOPRAMIDE 10 MG INJ IV SCH ×4 (00:10→18:29)
[2016-10-23] MEDS: TPN 1,000 ML IV SCH ×2 (00:51→18:30)
[2016-10-23] MEDS: D5-NS + KCL 20 MEQ 1,000 ML IV SCH ×3 (03:12→17:30)
[2016-10-23 05:55] LABS: ADD SCAN DIFF NO
[2016-10-23 06:06] LABS: BASOPHILS % 0.2 % (0.0-2.0); EOSINOPHILS % 0.2 % (0.0-7.0); HEMATOCRIT 28.5 % (37.0-47.0); LYMPHOCYTES # 1.3 10^3/ul (0.8-2.9); LYMPHOCYTES % 14.6 % (15.0-51.0); MEAN CORPUSCULAR HGB CONC 31.6 g/dl (32.0-37.0); MEAN CORPUSCULAR VOLUME 88.8 fl (82.0-101.0); MEAN PLATELET VOLUME 9.6 fl (7.4-10.4); MONOCYTE # 0.9 10^3/ul (0.3-0.9); NEUTROPHIL # 6.3 10^3/ul (1.6-7.5); NEUTROPHILS % 73.5 % (39.0-77.0); PLATELET COUNT 310 10^3/UL (140-415); RED BLOOD COUNT 3.21 10^6/ul (4.20-5.40); RED CELL DISTRIBUTION WIDTH 14.1 % (11.5-14.5); WHITE BLOOD COUNT 8.5 10^3/ul (4.8-10.8)
[2016-10-23 06:34] LABS: MAGNESIUM 2.4 mg/dl (1.7-2.5); PHOSPHORUS 3.7 mg/dl (2.5-4.9); POTASSIUM 3.8 mmol/L (3.5-5.1)
[2016-10-23 06:37] LABS: CREATININE 0.81 mg/dl (0.44-1.00)
[2016-10-23 06:38] LABS: CALCIUM 8.6 mg/dl (8.4-10.2)
[2016-10-23 08:09] VITALS: BP 137/69; RESP 20
[2016-10-23] MEDS: ACCU-CHEK XX SCH ×2 (09:00→21:39)
[2016-10-23] MEDS: DOXYCYCLINE 100 MG in SOD CHLORIDE 0.9% 250 ML IVPB SCH ×3 (09:00→21:36)
--- NOTE | 2016-10-23 09:54 | CONS ---
DATE OF ADMISSION: 10/16/2016 DATE OF CONSULTATION: 10/23/2016 HEMATOLOGY/ONCOLOGY PROGRESS NOTE SUBJECTIVE: The patient is comfortable. She has not complained of abdominal pain or cramping. She h as no cough or shortness of breath. OBJECTIVE: VITAL SIGNS: Temperature 99, pulse is 81 per minute, respirations 20, blood pressure is 137/69, oxy gen saturation is 98% on room air. SKIN: Pale. No ecchymosis, no petechiae or rashes. HEENT: No mucosal lesions. No scleral icterus. There is a nasogastric tube in place. NECK: No jugular venous distention or thyroid enlargement. CHEST: Clear to auscultation and percussion. No rhonchi, wheezes, rales or rubs. NODES: No palpable lymphadenopathy in lymph node-bearing area. ABDOMEN: Mildly distended. There is a stoma in the left mid abdomen. There is firmness just super ior to the stoma, but no distinct masses. EXTREMITIES: No clubbing, edema or cyanosis. No palpable cords or Homans sign. NEUROLOGIC: Normal. LABORATORY: White count 8,500, hemoglobin 9, hematocrit 28.5 and platelet count 310,000. Sodium 14 2, potassium 3.9, creatinine 0.81, BUN is 19. Last chest x-ray was on 10/21/2016. This still shows small bilateral pleural effusions, with basila r atelectasis. ASSESSMENT: 1. 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 2. Bowel obstruction secondary to #1. PLAN: Still awaiting transfer to [facility] so the patient may be started on chemotherapy, which will co nsist of weekly paclitaxel, and also ramucirumab given every 2 weeks. Dictated By: RADHA RODRIGUES MD SR/NTS Conf#: [id number] DID#: [id number]
[2016-10-23] MEDS ORDERED: SOD CHLORIDE 0.9% 100 ML ONE (10:29)
[2016-10-23] MEDS ORDERED: IODIXANOL LOCM 100 ML BTL ONE (10:29)
[2016-10-23] MEDS ORDERED: LEVALBUTEROL (NEB) 0.31 MG/3 ML AMP HHN PRN (14:00)
[2016-10-23] MEDS: LORAZEPAM 2 MG INJ IV PRN (15:24)
--- NOTE | 2016-10-23 17:09 | CONS ---
Date/Time of Note Date/Time of Note DATE: 10/23/16 TIME: 17:07 Assessment/Plan Assessment/Plan Chief Complaint/Hosp Course ID PROGRESS NOTE TOTAL ABX DAY # 8 => Doxy #5 + Levaquin #5 s/p 10/16 -10/19 => Vanco IV + Zosyn -DC'd due to rising S.creatinine 24H INTERVAL SUMMARY * Lethargic today, family not in room, she is taking a nap without distress, NGT intact, * Low grade temp 99.0, WBC normalized * Repeat UA C&S (-) PHYSICAL EXAMINATION: GENERAL: VSS,NAD, no fevers HEENT: Unremarkable NECK: Supple, trach-> midline CHEST: Equal chest rise bilaterally, without dyspnea on observation HEART: Pulse RRR ABDOMEN: Soft, benign EXTREMITIES: Warm, SKIN: Warm, dry ID ASSESSMENT: 66 yo F admitted with: 1. Gastric cancer- STG IV * Status post partial gastrectomy and partial colectomy. * Status post palliative ileostomy. * Chemo Tx planned @ [facility] 10/15/16 aborted due to fevers 2. SIRS w/fevers, leukocytosis, ESR 64 = RESOLVING, WBC normal, no fevers * Blood & urine Cx (-) 3. Pulmonary edema w/likely superimposed developing HCAP 4. s/p Intractable nausea, vomiting, and abdominal pain-> due to ileus vs SBO 5. Hypertension. 6. Anemia & Thrombocytopenia 7. Acute renal insufficiency => 10/19/16 S.Creatinine has doubled on Vanco + Zosyn 3.375 combo from 0.55 to 1.05 (-)MRSA NARES INVASIVES: * PIV / Chemo Port ABX ALLERGIES: KNDA CURRENT ABX: DAY # 8 => Doxy #5 + Levaquin #5 s/p 10/16 -10/19 => Vanco IV + Zosyn -DC'd due to rising S.creatinine ID RECOMMENDATIONS: 1. Continue IV ABX for now -- complete at least a 10 day course, longer if there is a concern for aspiration w/NGT in place . . . . Problems: Consultation Date/Type/Reason Admit Date/Time Oct 16, 2016 at 08:57 Exam/Review of Systems Vital Signs Vitals Vital Signs Date Time Temp Pulse Resp B/P Pulse Ox O2 Delivery O2 Flow Rate FiO2 10/23/16 08:09 99.0 20 20 137/69 98 10/22/16 09:11 21 10/22/16 08:00 Nasal Cannula 2.0 Intake and Output 10/22/16 10/22/16 10/23/16 15:00 23:00 07:00 Intake Total 450 ml 1150 ml Output Total 900 ml 200 ml Balance 450 ml 250 ml -200 ml Results Result Diagram: 10/23/16 0540 10/23/16 0540 Results 24 hrs Laboratory Tests Test 10/22/16 20:35 10/23/16 05:40 10/23/16 08:55 Bedside Glucose 111 122 White Blood Count 8.5 Red Blood Count 3.21 L Hemoglobin 9.0 L Hematocrit 28.5 L Mean Corpuscular Volume 88.8 Mean Corpuscular Hemoglobin 28.0 L Mean Corpuscular Hemoglobin Concent 31.6 L Red Cell Distribution Width 14.1 Platelet Count 310 Mean Platelet Volume 9.6 Neutrophils % 73.5 Lymphocytes % 14.6 L Monocytes % 11.0 Eosinophils % 0.2 Basophils % 0.2 Nucleated Red Blood Cells % 0.0 Neutrophils # 6.3 Lymphocytes # 1.3 Monocytes # 0.9 Eosinophils # 0.0 Basophils # 0.0 Nucleated Red Blood Cells # 0.0 Sodium Level 142 Potassium Level 3.8 Chloride Level 103 Carbon Dioxide Level 28 Anion Gap 15 Blood Urea Nitrogen 19 Creatinine 0.81 Glucose Level 119 Calcium Level 8.6 Phosphorus Level 3.7 Magnesium Level 2.4 Medications Medications Current Medications Clonidine HCl (Catapres-Tts 1 Patch) 1 patch Q7D TRANSDERM Last administered on 10/17/16 06:31; Admin Dose 1 PATCH; Start 10/17/16 at 06:00 Ondansetron HCl 4 mg 4 mg Q4H PRN IV NAUSEA AND/OR VOMITING Last administered on 10/21/16 01:32; Admin Dose 4 MG; Start 10/17/16 at 19:00 Total Parenteral Nutrition (Tpn) 1,000 ml @ 40 mls/hr Q24H IV Last administered on 10/23/16 00:51; Admin Dose 40 MLS/HR; Start 10/19/16 at 18:30 Fentanyl 1 patch 1 patch Q72H TRANSDERM Last administered on 10/22/16 20:05; Admin Dose 1 PATCH; Start 10/19/16 at 18:30 Doxycycline Hyclate 100 mg/ Sodium Chloride 250 ml @ 250 mls/hr Q12 IVPB Last administered on 10/23/16 12:42; Admin Dose 250 MLS/HR; Start 10/19/16 at 21:00 Levofloxacin/ Dextrose (Levaquin 500mg/ D5W 100 ml (Pmx)) 100 ml @ 100 mls/hr Q24H IVPB Last administered on 10/22/16 19:54; Admin Dose 100 MLS/HR; Start at 19:30 Hydromorphone HCl 1 mg 1 mg Q4H PRN IV BREAKTHROUGH PAIN Last administered on 01:04; Admin Dose 1 MG; Start 10/19/16 at 23:00 Potassium Chloride/Dextrose/ Sod Cl (D5-NS + KCl 20 Meq) 1,000 ml @ 70 mls/hr [id number] IV Last administered on 10/23/16 04:34; Admin Dose 70 MLS/HR; Start at 18:00 Lorazepam (Ativan) 0.5 mg Q8H PRN IV anxiety, insomnia Last administered on 15:24; Admin Dose 0.5 MG; Start 10/21/16 at 18:00 Diagnostic Test (Pha) (Accu-Chek) 1 ea Q12 XX ; Start 10/22/16 at 09:00 Metoclopramide HCl (Reglan) 5 mg Q6 IV Last administered on 10/23/16 12:51; Admin Dose 5 MG; Start 10/23/16 at 00:00 BRYAN LEWIS NP Oct 23, 2016 17:09
--- NOTE | 2016-10-23 17:14 | PN ---
DATE: 10/23/2016 SUBJECTIVE: The patient reports decreased nausea, vomiting last night and this morning. She has be en having mild anxiety attack and feels better after Ativan treatment. OBJECTIVE VITAL SIGNS: Temperature 99.0, blood pressure 137/69, pulse of 78, respiration rate 20, O2 saturati on 98% on room air. HEENT: Pupils equally round, reactive to light. Nasogastric tube on the left nostril. Oropharynx clear. Decreased breath sounds on left base. Minimal right basilar crackles. CARDIAC: Regular rate and rhythm, normal S1, S2. ABDOMEN: Hypoactive, but present bowel sounds. Nondistended, nontender at this time. EXTREMITIES: No clubbing, cyanosis, or edema. LABORATORY DATA: WBC 8.5, hemoglobin 9.0, hematocrit 28.5, platelet count 310,000. Sodium 142, pot assium 3.8, chloride 103, carbon dioxide 28, BUN 19, creatinine 0.8, glucose 119, calcium 8.6, phosp horus 3.7, magnesium 2.4. Chest and abdominal CT pending. ASSESSMENT AND PLAN: 1. Pneumonitis. The patient is on day #8 of antibiotics. Plan to complete 10-day course of IV ant ibiotics and stopped the medications to see if the patient has any recurrence of symptoms. We will also plan to check the result of the chest CT today and if patient has excessive pleural effusion, w e may consider thoracentesis for diagnostic purposes as well as palliative treatment. 2. Nausea and vomiting. Await abdominal CT scan today to see if the patient has a large tumor load around her stomach, but clinically patient has been able to pass liquid through. We plan to clamp the NG tube today since patient has less nausea and vomiting on Reglan and Ativan. If she has no re currence of nausea, vomiting, we may resume oral feeding very gently. 3. Stage IV metastatic gastric carcinoma. Anticipate starting chemotherapy after patient is finish ed with a 10-day course of antibiotics for pneumonia. Awaiting a bed on 4 . Dictated By: KOBY FRANCO MD DP/[place] Conf#: [id number] DID#: [id number]
[2016-10-23] MEDS: LEVOFLOXACIN 500MG/D5W (PMX) 100 ML IVPB SCH (19:54)
[2016-10-23 20:42] VITALS: BP 114/72; RESP 21
[2016-10-23 23:42] VITALS: BP 147/72; PULSE 20; RESP 20
[2016-10-24] MEDS: METOCLOPRAMIDE 10 MG INJ IV SCH ×5 (00:21→23:19)
[2016-10-24] MEDS: D5-NS + KCL 20 MEQ 1,000 ML IV SCH ×3 (02:00→16:46)
[2016-10-24 04:12] VITALS: BP 142/74; PULSE 79; RESP 18
--- NOTE | 2016-10-24 06:14 | RADRPT ---
PROCEDURE: CT of the chest, abdomen, and pelvis with contrast CLINICAL INDICATION: Increasing pleural effusions and consolidation. Nausea and vomiting. TECHNIQUE: Spiral CT images through the chest, abdomen and pelvis without the administration of or al and during administration of 95 cc of Visipaque 320 intravenous contrast material. Multiplanar r econstructions. The total exam CTDI equals 7.81 mGy and the total exam DLP equals 530.31 mGy-cm. COMPARISON: 10/16/2016 FINDINGS: CT chest: Right chest port is seen in place. Biapical scarring is again seen. Stable tiny left uppe r lobe lung nodule on image 17. Multiple bilateral thyroid nodules or cysts are again seen. Ectati c and calcified aorta. Calcification of the coronary arteries and mitral valve. Bilateral pleural effusions have increased in size. Associated compressive atelectasis is again seen. No abnormal pl eural enhancement. No pericardial effusion is seen. CT abdomen and pelvis: Mild periportal edema. No definite focal lesion of the liver or spleen. Relative hypoenhancement o f the kidneys compared with prior CT from 10/11/2016. Normal creatinine. Pyelonephritis is not excl uded. Right renal cortical cysts are again seen. Unremarkable adrenals. Pancreatic atrophy. New nasogastric tube courses through the gastric remnant and into the proximal jejunum. There is new mi ld intra and extrahepatic biliary ductal dilatation. The common bile duct measures up to 8 mm in di ameter. Postsurgical changes are again seen. The Lydia-en-Y loop is more distended than on the prio r study, measuring up to 4.8 cm in diameter. Again seen are multiple areas of loculated fluid throu ghout the abdomen and pelvis which may be due to sterile loculated fluid although abscess is not exc luded. Largest area is beneath the anterior abdominal wall at the level of the umbilicus and measur es 1.8 by 10 cm. Fluid collections are compared with the prior study. Left lower quadrant ostomy. Diffuse peritoneal and serosal enhancement suggesting peritonitis. Hazy mesenteric edema. Mild dist ension of the gallbladder. Diffuse anasarca. Presacral edema. The urinary bladder is relatively de compressed. The uterus and possibly the ovaries are surgically absent. The appendix is not identif ied. No evidence for diverticulitis. Other than the Lydia-en-Y loop, the small bowel loops do not a ppear dilated. No free air is seen. Atherosclerotic vascular calcification. Degenerative change o f the spine. IMPRESSION: Increased bilateral pleural effusions. Associated compressive atelectasis. Stable left upper lobe tiny nodule. New relative hypoenhancement of the kidneys. Pyelonephritis is not excluded. New mild intra and extrahepatic biliary ductal dilatation. MRCP may be helpful if stone is suspecte d. Distended Lydia-en-Y loop. Diffuse peritoneal and serosal enhancement suggesting peritonitis. Incre ase in size of rim-enhancing intraperitoneal fluid collections which may be sterile or due to absces s. Largest is beneath the anterior abdominal wall at the level of the umbilicus as described. RPTAT: [facility] Physician Noble Date Time Electronically viewed and signed by Vivian Hanley Physician on 10/24/2016 06:13 LE/
[2016-10-24 08:02] VITALS: BP 156/70; RESP 15
[2016-10-24] MEDS: CLONIDINE 0.1 MG/24 HR PATCH TRANSDERM SCH (08:41)
[2016-10-24] MEDS: ACCU-CHEK XX SCH ×2 (08:41→21:41)
--- NOTE | 2016-10-24 12:09 | PN ---
DATE: 10/24/2016 SUBJECTIVE: The patient reports feeling okay. NG tube has been clamped. Denies nausea or vomiting ; is requesting to start some type of liquid by mouth. VITAL SIGNS: Blood pressure 156/70, temperature is 98.2, pulse is 80, respirations of 15, pulse ox 96%. LABORATORY TESTS: Demonstrate a hemoglobin of 9.0, which is higher. CT of the abdomen, pelvis and c hest demonstrates possible peritonitis, increase fluids, sterile versus abscess. PHYSICAL EXAMINATION: CARDIOVASCULAR: Regular rate and rhythm with a systolic ejection murmur in this second intercostal space. LUNGS: Clear to auscultation. EXTREMITIES: Had no clubbing or cyanosis. ASSESSMENT AND PLAN: 1. Pneumonitis. Day #9 of antibiotics. The patient is to complete a 10-day course. ID currently following. 2. Nausea and vomiting. The patient had a CT scan, did not show a large tumor. It did show some fl uid, possible peritonitis. The patient is already on antibiotics. The patient is no longer nauseat ed or vomiting. She is requesting to start some type of oral feeding. We will start her off on a li quid diet and advance as possible. 3. Stage IV metastatic gastric carcinoma. Dictated By: NÉSTOR ABURTO/[place] Conf#: [id number] DID#: [id number]
[2016-10-24] MEDS: DOXYCYCLINE 100 MG in SOD CHLORIDE 0.9% 250 ML IVPB SCH ×2 (12:16→21:41)
[2016-10-24] MEDS: ONDANSETRON 4 MG INJ IV PRN (14:14)
[2016-10-24] MEDS: TPN 1,000 ML IV SCH ×2 (18:15→23:38)
[2016-10-24 19:00] VITALS: BP 161/68; RESP 18
[2016-10-24] MEDS: LEVOFLOXACIN 500MG/D5W (PMX) 100 ML IVPB SCH (19:49)
--- NOTE | 2016-10-24 20:46 | CONS ---
Date/Time of Note Date/Time of Note DATE: 10/24/16 TIME: 20:40 Assessment/Plan Assessment/Plan Chief Complaint/Hosp Course ID PROGRESS NOTE TOTAL ABX DAY # 8 => Doxy #5 + Start Merrem #1 for Peritonitis-> Query ABD Abscess? Levaquin #5-> DC 10/24 s/p 10/16 -10/19 => Vanco IV + Zosyn -DC'd due to rising S.creatinine 24H INTERVAL SUMMARY * Lethargic today, family not in room, she is taking a nap without distress, NGT intact, * Low grade temp 99.0, WBC normalized * Repeat UA C&S (-) * CT ABD: Distended Lydia-en-Y loop. Diffuse peritoneal and serosal enhancement suggesting peritonitis. Increase in size of rim-enhancing intraperitoneal fluid collections which may be sterile or due to abscess. Largest is beneath the anterior abdominal wall at the level of the umbilicus as described. PHYSICAL EXAMINATION: GENERAL: VSS,NAD, no fevers HEENT: Unremarkable NECK: Supple, trach-> midline CHEST: Equal chest rise bilaterally, without dyspnea on observation HEART: Pulse RRR ABDOMEN: Soft, benign EXTREMITIES: Warm, SKIN: Warm, dry ID ASSESSMENT: 66 yo F admitted with: 1. Gastric cancer- STG IV * Status post partial gastrectomy and partial colectomy. * Status post palliative ileostomy. * Chemo Tx planned @ [facility] 10/15/16 aborted due to fevers 2. SIRS w/fevers, leukocytosis, ESR 64 = RESOLVING, WBC normal, no fevers * Blood & urine Cx (-) 3. Peritonitis w/ABD w/possible abscess formation * CT 10/23/16: Distended Lydia-en-Y loop. Diffuse peritoneal and serosal enhancement suggesting peritonitis. Increase in size of rim-enhancing intraperitoneal fluid collections which may be sterile or due to abscess. Largest is beneath the anterior abdominal wall at the level of the umbilicus as described. Pulmonary edema w/likely superimposed developing HCAP 4. s/p Intractable nausea, vomiting, and abdominal pain-> due to ileus vs SBO 5. Hypertension. 6. Anemia & Thrombocytopenia 7. Acute renal insufficiency => 10/19/16 S.Creatinine has doubled on Vanco + Zosyn 3.375 combo from 0.55 to 1.05 (-)MRSA NARES INVASIVES: * PIV / Chemo Port ABX ALLERGIES: KNDA CURRENT ABX: DAY # 8 => Doxy #5 + Merrem #1 Levaquin #5-> DC 10/24 s/p 10/16 -10/19 => Vanco IV + Zosyn -DC'd due to rising S.creatinine ID RECOMMENDATIONS: 1. Continue IV Doxy 2. Start Merrem #1 for Peritonitis-> Query ABD Abscess? 3. Avoiding Vanco IV + Zosyn -DC'd due to hx of rising S.creatinine prior on this combo it doubled overnight. . . . . . Problems: Consultation Date/Type/Reason Admit Date/Time Oct 16, 2016 at 08:57 Exam/Review of Systems Vital Signs Vitals Vital Signs Date Time Temp Pulse Resp B/P Pulse Ox O2 Delivery O2 Flow Rate FiO2 10/24/16 19:00 98.8 77 18 161/68 96 10/24/16 04:12 Room Air 10/22/16 09:11 21 10/22/16 08:00 2.0 Intake and Output 10/23/16 10/23/16 10/24/16 15:00 23:00 07:00 Intake Total 250 ml 1780 ml 215 ml Output Total 300 ml Balance 250 ml 1480 ml 215 ml Results Result Diagram: 10/23/16 0540 10/23/16 0540 Results 24 hrs Laboratory Tests Test 10/23/16 21:39 10/24/16 08:02 10/24/16 12:32 10/24/16 18:10 Bedside Glucose 111 119 110 105 Medications Medications Current Medications Clonidine HCl (Catapres-Tts 1 Patch) 1 patch Q7D TRANSDERM Last administered on 10/24/16 08:41; Admin Dose 1 PATCH; Start 10/17/16 at 06:00 Ondansetron HCl 4 mg 4 mg Q4H PRN IV NAUSEA AND/OR VOMITING Last administered on 10/24/16 14:14; Admin Dose 4 MG; Start 10/17/16 at 19:00 Total Parenteral Nutrition (Tpn) 1,000 ml @ 40 mls/hr Q24H IV Last administered on 10/23/16 00:51; Admin Dose 40 MLS/HR; Start 10/19/16 at 18:30 Fentanyl 1 patch 1 patch Q72H TRANSDERM Last administered on 10/22/16 20:05; Admin Dose 1 PATCH; Start 10/19/16 at 18:30 Doxycycline Hyclate 100 mg/ Sodium Chloride 250 ml @ 250 mls/hr Q12 IVPB Last administered on 10/24/16 12:16; Admin Dose 250 MLS/HR; Start 10/19/16 at 21:00 Levofloxacin/ Dextrose (Levaquin 500mg/ D5W 100 ml (Pmx)) 100 ml @ 100 mls/hr Q24H IVPB Last administered on 10/24/16 19:49; Admin Dose 100 MLS/HR; Start at 19:30 Hydromorphone HCl 1 mg 1 mg Q4H PRN IV BREAKTHROUGH PAIN Last administered on 01:04; Admin Dose 1 MG; Start 10/19/16 at 23:00 Potassium Chloride/Dextrose/ Sod Cl (D5-NS + KCl 20 Meq) 1,000 ml @ 70 mls/hr [id number] IV Last administered on 10/24/16 16:46; Admin Dose 70 MLS/HR; Start at 18:00 Lorazepam (Ativan) 0.5 mg Q8H PRN IV anxiety, insomnia Last administered on 15:24; Admin Dose 0.5 MG; Start 10/21/16 at 18:00 Diagnostic Test (Pha) (Accu-Chek) 1 ea Q12 XX Last administered on 10/24/16 08 :41; Admin Dose 1 EA; Start 10/22/16 at 09:00 Metoclopramide HCl (Reglan) 5 mg Q6 IV Last administered on 10/24/16 18:15; Admin Dose 5 MG; Start 10/23/16 at 00:00 BRYAN LEWIS NP Oct 24, 2016 20:46
[2016-10-24 21:00] VITALS: BP 130/68; PULSE 71
[2016-10-24] MEDS: MEROPENEM 1 GM/100 ML (PMX) 100 ML IVPB SCH (23:18)
[2016-10-25] MEDS: METOCLOPRAMIDE 10 MG INJ IV SCH ×3 (06:29→17:48)
[2016-10-25 07:08] LABS: CALCIUM 8.3 mg/dl (8.4-10.2); CREATININE 0.66 mg/dl (0.44-1.00); PHOSPHORUS 4.2 mg/dl (2.5-4.9); POTASSIUM 4.4 mmol/L (3.5-5.1)
[2016-10-25 08:04] VITALS: BP 148/67; RESP 14
[2016-10-25] MEDS: MEROPENEM 1 GM/100 ML (PMX) 100 ML IVPB SCH ×2 (09:52→21:11)
[2016-10-25] MEDS: ACCU-CHEK XX SCH ×2 (09:55→21:50)
[2016-10-25] MEDS: DOXYCYCLINE 100 MG in SOD CHLORIDE 0.9% 250 ML IVPB SCH ×2 (10:44→21:59)
--- NOTE | 2016-10-25 14:43 | PN ---
DATE: SUBJECTIVE: The patient's NG tube was clamped yesterday, started a clear liquid diet, did not kinjal ate this well, started feeling nauseated. NG tube was placed back to suction. Patient today, once again trying to feel better, would still like to try ice chips. PHYSICAL EXAMINATION: VITAL SIGNS: Temperature is 98.1, pulse is 76, respirations are 14, blood pressure 148/67. HEENT: Normocephalic. NG tube coming out, need to be pushed back in. CARDIOVASCULAR: Regular rate and rhythm. LUNGS: Clear to auscultation. ABDOMEN: Mildly distended. EXTREMITIES: No pain with palpation. ASSESSMENT AND PLAN: 1. Pneumonitis on antibiotics. ID currently following. 2. Possible peritonitis, ID currently has changed the antibiotics, discontinued the Levaquin and ad ded Merrem with her doxycycline now. 3. Stage IV metastatic gastric carcinoma. Dictated By: NÉSTOR ABURTO/[place] Conf#: [id number] DID#: [id number]
[2016-10-25] MEDS: D5-NS + KCL 20 MEQ 1,000 ML IV SCH (15:16)
--- NOTE | 2016-10-25 18:28 | CONS ---
Date/Time of Note Date/Time of Note DATE: 10/25/16 TIME: 18:25 Assessment/Plan Assessment/Plan Chief Complaint/Hosp Course ID PROGRESS NOTE TOTAL ABX DAY # 9 => Doxy #5 + Merrem #2 for Peritonitis-> Query ABD Abscess? Levaquin #5-> DC 10/24 s/p 10/16 -10/19 => Vanco IV + Zosyn -DC'd due to rising S.creatinine 24H INTERVAL SUMMARY * Awake, alert, Wednesday family republican in the room -- very loud, filled with love - - she is doing well, she is aware there may be ABD peritonitis * Low grade temp 99.0, WBC normalized * CT ABD: Distended Lydia-en-Y loop. Diffuse peritoneal and serosal enhancement suggesting peritonitis. Increase in size of rim-enhancing intraperitoneal fluid collections which may be sterile or due to abscess. Largest is beneath the anterior abdominal wall at the level of the umbilicus as described. PHYSICAL EXAMINATION: GENERAL: VSS,NAD, no fevers HEENT: Unremarkable NECK: Supple, trach-> midline CHEST: Equal chest rise bilaterally, without dyspnea on observation HEART: Pulse RRR ABDOMEN: Soft, benign EXTREMITIES: Warm, SKIN: Warm, dry ID ASSESSMENT: 66 yo F admitted with: 1. Gastric cancer- STG IV * Status post partial gastrectomy and partial colectomy. * Status post palliative ileostomy. * Chemo Tx planned @ [facility] 10/15/16 aborted due to fevers 2. SIRS w/fevers, leukocytosis, ESR 64 = RESOLVING, WBC normal, no fevers * Blood & urine Cx (-) 3. Peritonitis w/ABD w/possible abscess formation * CT 10/23/16: Distended Lydia-en-Y loop. Diffuse peritoneal and serosal enhancement suggesting peritonitis. Increase in size of rim-enhancing intraperitoneal fluid collections which may be sterile or due to abscess. Largest is beneath the anterior abdominal wall at the level of the umbilicus as described. Pulmonary edema w/likely superimposed developing HCAP 4. s/p Intractable nausea, vomiting, and abdominal pain-> due to ileus vs SBO 5. Hypertension. 6. Anemia & Thrombocytopenia 7. Acute renal insufficiency => 10/19/16 S.Creatinine has doubled on Vanco + Zosyn 3.375 combo from 0.55 to 1.05 (-)MRSA NARES INVASIVES: * PIV / Chemo Port ABX ALLERGIES: KNDA CURRENT ABX: DAY # 9 => Doxy #6 + Merrem #2 Levaquin #5-> DC 10/24 s/p 10/16 -10/19 => Vanco IV + Zosyn -DC'd due to rising S.creatinine ID RECOMMENDATIONS: 1. Continue IV Doxy 2. Started Merrem #2 for Peritonitis-> Query ABD Abscess? 3. Avoiding Vanco IV + Zosyn -DC'd due to hx of rising S.creatinine prior on this combo it doubled overnight. . . . . . Problems: Consultation Date/Type/Reason Admit Date/Time Oct 16, 2016 at 08:57 Exam/Review of Systems Vital Signs Vitals Vital Signs Date Time Temp Pulse Resp B/P Pulse Ox O2 Delivery O2 Flow Rate FiO2 10/25/16 08:04 98.1 76 14 148/67 100 10/24/16 04:12 Room Air 10/22/16 09:11 21 10/22/16 08:00 2.0 Intake and Output 10/24/16 10/24/16 10/25/16 14:59 22:59 06:59 Intake Total 250 ml 2570 ml 1240 ml Output Total 1000 ml 1425 ml Balance 250 ml 1570 ml -185 ml Results Result Diagram: 10/23/16 0540 10/25/16 0510 Results 24 hrs Laboratory Tests Test 10/24/16 21:40 10/25/16 05:10 10/25/16 09:58 Bedside Glucose 99 117 Sodium Level 139 Potassium Level 4.4 Chloride Level 108 Carbon Dioxide Level 26 Anion Gap 9 # Blood Urea Nitrogen 22 H Creatinine 0.66 Glucose Level 84 Calcium Level 8.3 L Phosphorus Level 4.2 Magnesium Level 2.0 Medications Medications Current Medications Clonidine HCl (Catapres-Tts 1 Patch) 1 patch Q7D TRANSDERM Last administered on 10/24/16 08:41; Admin Dose 1 PATCH; Start 10/17/16 at 06:00 Ondansetron HCl 4 mg 4 mg Q4H PRN IV NAUSEA AND/OR VOMITING Last administered on 10/24/16 14:14; Admin Dose 4 MG; Start 10/17/16 at 19:00 Total Parenteral Nutrition (Tpn) 1,000 ml @ 40 mls/hr Q24H IV Last administered on 10/24/16 23:38; Admin Dose 40 MLS/HR; Start 10/19/16 at 18:30 Fentanyl 1 patch 1 patch Q72H TRANSDERM Last administered on 10/22/16 20:05; Admin Dose 1 PATCH; Start 10/19/16 at 18:30 Doxycycline Hyclate/Sodium Chloride (Vibramycin/NS) 250 ml @ 250 mls/hr Q12 IVPB Last administered on 10/25/16 10:44; Admin Dose 250 MLS/HR; Start at 21:00 Hydromorphone HCl 1 mg 1 mg Q4H PRN IV BREAKTHROUGH PAIN Last administered on 01:04; Admin Dose 1 MG; Start 10/19/16 at 23:00 Potassium Chloride/Dextrose/ Sod Cl (D5-NS + KCl 20 Meq) 1,000 ml @ 70 mls/hr [id number] IV Last administered on 10/25/16 15:16; Admin Dose 70 MLS/HR; Start at 18:00 Lorazepam (Ativan) 0.5 mg Q8H PRN IV anxiety, insomnia Last administered on 15:24; Admin Dose 0.5 MG; Start 10/21/16 at 18:00 Diagnostic Test (Pha) (Accu-Chek) 1 ea Q12 XX Last administered on 10/24/16 21 :41; Admin Dose 1 EA; Start 10/22/16 at 09:00 Metoclopramide HCl 5 mg 5 mg Q6 IV Last administered on 10/25/16 17:48; Admin Dose 5 MG; Start 10/23/16 at 00:00 Meropenem (Merrem 1 Gm/100 ml (Pmx)) 100 ml @ 200 mls/hr Q12 IVPB Last administered on 10/25/16 09:52; Admin Dose 200 MLS/HR; Start 10/24/16 at 21:00 BRYAN LEWIS NP Oct 25, 2016 18:28
[2016-10-25] MEDS: FENTAnyl PATCH 12 MCG/HR TRANSDERM SCH (18:34)
[2016-10-25 20:15] VITALS: BP 150/68; RESP 18
[2016-10-26] MEDS: METOCLOPRAMIDE 10 MG INJ IV SCH ×4 (00:47→18:16)
[2016-10-26] MEDS: TPN 1,000 ML IV SCH (00:47)
[2016-10-26] MEDS: D5-NS + KCL 20 MEQ 1,000 ML IV SCH ×2 (02:24→06:37)
[2016-10-26 07:30] VITALS: BP 148/64; RESP 18
[2016-10-26] MEDS: ACCU-CHEK XX SCH ×2 (09:11→21:05)
[2016-10-26] MEDS: MEROPENEM 1 GM/100 ML (PMX) 100 ML IVPB SCH ×2 (09:11→21:04)
[2016-10-26] MEDS: DOXYCYCLINE 100 MG in SOD CHLORIDE 0.9% 250 ML IVPB SCH ×2 (09:53→22:05)
--- NOTE | 2016-10-26 15:06 | PN ---
DATE: 10/26/2016 INFECTIOUS DISEASE PROGRESS NOTE SUBJECTIVE: No acute changes. The patient is alert, feels good, looks comfortable, no fevers. No labs today. ANTIMICROBIALS: 1. Doxycycline. 2. Merrem. INDWELLINGS: Right chest Port-A-Cath, NG tube. PHYSICAL EXAMINATION: GENERAL: Fragile, elderly woman who is awake, in no distress. HEENT: Head atraumatic, normocephalic. Sclerae anicteric. Buccal mucosa pink, dry. NECK: Supple, trachea midline. CHEST: Rise symmetrical. Breath sounds diminished to bases. HEART: S1, S2. ABDOMEN: Soft, bowel sounds present. EXTREMITIES: Without cyanosis. ASSESSMENT: 1. Possible peritonitis, remains on antibiotics. 2. Stage IV gastric CA status post partial gastrectomy, colectomy, and palliative ileostomy. 3. Pulmonary edema, possible developing pneumonia. 4. Hypertension. 5. Anemia and thrombocytopenia. PLAN: The patient remains clinically stable, covered with broad-spectrum antibiotics. Oncology on case. Dictated By: KJ HUYNH DIRECTOR CPG for LOLLY MUELLER/[place] Conf#: [id number] DID#: [id number]
--- NOTE | 2016-10-26 18:46 | PN ---
DATE: 10/26/2016 SUBJECTIVE: The patient states she is feeling well at this time. She states that there are no comp laints of abdominal pain or distention and no nausea when the NG tube is connected to suction. She does state that if the NG tube is clamped that she does begin to get abdominal discomfort and na usea. This is quickly relieved when the tube is reconnected to suction. OBJECTIVE: VITAL SIGNS: Temperature 98.2, pulse 72 per minute and regular, respirations 18, blood pressure 148 /64, and pulse oximetry is 98% on room air. SKIN: No ecchymosis. No petechiae, or rashes. HEENT: No mucosal lesions. No scleral icterus. NECK: Supple. No jugular venous distention or thyroid enlargement. CHEST: Clear to auscultation and percussion. No rhonchi, wheezes, rales, or rubs. There is a port in place in the right anterior chest wall. ABDOMEN: Soft. No masses, no ascites. There is a stoma in the left upper abdomen. There is marke d firmness to the superior aspect of the stomach. No distinct mass. EXTREMITIES: No edema or cyanosis. No palpable cords or Homans sign. NEUROLOGIC: Normal. LABORATORY DATA: The patient has had a CT of the abdomen and pelvis done on 10/23/2016. This shows bilateral pleural effusion. There is also new mild intrahepatic and extrahepatic biliary dilatatio n. ASSESSMENT: 1. Metastatic gastric carcinoma with abdominal carcinomatosis. 2. Partial small-bowel obstruction. PLAN: The patient is presently on IV antibiotics. We will wait another 48 hours before initiating chemotherapy. Chemotherapy will consist of paclitaxel 60 mg per meter squared on a weekly basis. A lso, the patient will receive Cyramza. This will be also 60 mg per meter squared every 2 weeks. Th e patient will receive paclitaxel on day 1, 8, and 15 and the Cyramza will be given days 1 and 15 an d then cycle will be repeated every 28 days. Dictated By: RADHA RODRIGUES MD SR/NTS Conf#: [id number] DID#: [id number] CC: KOBY FRANCO MD;*EndCC*
[2016-10-26 19:24] VITALS: BP 141/64; RESP 16
--- NOTE | 2016-10-26 22:03 | PN ---
DATE: 10/26/2016 SUBJECTIVE: The patient reports mild abdominal pain, especially when the NG tube is clamped, but no shortness of breath and no current nausea. OBJECTIVE: VITAL SIGNS: Temperature 98.2, blood pressure 148/64, pulse of 72, respiration rate 18, O2 saturati on 98%. HEENT: Pupils equally round, reactive to light. Oropharynx clear. CHEST: Bibasilar crackles, left greater than right. CARDIAC: Regular rate and rhythm. Normal S1, S2. ABDOMEN: Hypoactive, but present bowel sounds. No current tenderness. EXTREMITIES: No clubbing, cyanosis, or edema. ASSESSMENT AND PLAN: 1. Pneumonitis. The recent chest CT shows increased bilateral pleural effusions with associated co mpressive atelectasis. The patient is on day 10 of antibiotics today. 2. Peritonitis. Meropenem has been added to doxycycline at the recommendations of infectious disea se financial management consultant. Will need to continue on this for another 7 days. I will consult supervisor yard to see if there are any other recommendations. 3. Stage IV gastric cancer. Plan to start chemotherapy once patient's infections have been treated . Dictated By: KOBY FRANCO MD DP/NTS Conf#: [id number] DID#: [id number]
[2016-10-27] MEDS: METOCLOPRAMIDE 10 MG INJ IV SCH ×4 (00:47→18:46)
[2016-10-27] MEDS: D5-NS + KCL 20 MEQ 1,000 ML IV SCH ×2 (00:47→15:57)
[2016-10-27] MEDS: TPN 1,000 ML IV SCH (00:47)
[2016-10-27 05:37] LABS: ADD SCAN DIFF NO
[2016-10-27 05:42] LABS: BASOPHILS % 0.4 % (0.0-2.0); EOSINOPHILS # 0.1 10^3/ul (0.0-0.5); EOSINOPHILS % 1.1 % (0.0-7.0); HEMATOCRIT 25.9 % (37.0-47.0); HEMOGLOBIN 8.5 g/dl (12.0-16.0); LYMPHOCYTES # 0.9 10^3/ul (0.8-2.9); LYMPHOCYTES % 11.5 % (15.0-51.0); MEAN CORPUSCULAR HEMOGLOBIN 29.1 pg (29.0-33.0); MEAN CORPUSCULAR HGB CONC 32.8 g/dl (32.0-37.0); MEAN CORPUSCULAR VOLUME 88.7 fl (82.0-101.0); MEAN PLATELET VOLUME 9.9 fl (7.4-10.4); MONOCYTE # 0.8 10^3/ul (0.3-0.9); MONOCYTES % 10.4 % (0.0-11.0); NEUTROPHIL # 5.8 10^3/ul (1.6-7.5); NEUTROPHILS % 76.2 % (39.0-77.0); PLATELET COUNT 261 10^3/UL (140-415); RED BLOOD COUNT 2.92 10^6/ul (4.20-5.40); RED CELL DISTRIBUTION WIDTH 14.5 % (11.5-14.5); WHITE BLOOD COUNT 7.6 10^3/ul (4.8-10.8)
[2016-10-27 06:47] LABS: ALBUMIN 2.7 g/dl (3.3-4.9); POTASSIUM 4.2 mmol/L (3.5-5.1)
[2016-10-27 06:49] LABS: CREATININE 0.61 mg/dl (0.44-1.00)
[2016-10-27 06:50] LABS: ALBUMIN/GLOBULIN RATIO 0.65; BILIRUBIN,DIRECT 1.3 mg/dl (0.00-0.20); BILIRUBIN,INDIRECT 0.6 mg/dl (0-1.1); BILIRUBIN,TOTAL 1.9 mg/dl (0.2-1.3); TOTAL PROTEIN 6.8 g/dl (6.1-8.1)
[2016-10-27 06:51] LABS: CALCIUM 8.5 mg/dl (8.4-10.2)
[2016-10-27 08:28] VITALS: BP 157/67; RESP 18
[2016-10-27 08:54] LABS: CALCIUM 8.8 mg/dl (8.4-10.2); CREATININE 0.61 mg/dl (0.44-1.00); MAGNESIUM 1.9 mg/dl (1.7-2.5); PHOSPHORUS 3.4 mg/dl (2.5-4.9); POTASSIUM 4.5 mmol/L (3.5-5.1)
[2016-10-27] MEDS: MEROPENEM 1 GM/100 ML (PMX) 100 ML IVPB SCH ×2 (08:57→21:23)
[2016-10-27] MEDS: ACCU-CHEK XX SCH ×2 (09:01→21:58)
[2016-10-27] MEDS: DOXYCYCLINE 100 MG in SOD CHLORIDE 0.9% 250 ML IVPB SCH ×2 (09:32→22:05)
--- NOTE | 2016-10-27 12:31 | PN ---
DATE: 10/27/2016 SUBJECTIVE: Patient is alert, feels good, looks comfortable, no fevers. WBC today 7.6, no shift. BUN 19, creatinine 0.61. ANTIMICROBIALS: 1. Meropenem. 2. Doxycycline. PHYSICAL EXAMINATION: GENERAL: This is a fragile, elderly woman who is alert, in no distress. HEENT: Head atraumatic, normocephalic. Sclerae anicteric. Buccal mucosa pink. NECK: Supple, trachea midline. CHEST: Rise symmetrical. Breath sounds clear. HEART: S1, S2. ABDOMEN: Soft, bowel tones present. EXTREMITIES: Without cyanosis. ASSESSMENT: 1. Metastatic gastric CA with abdominal carcinomatosis. 2. Partial small-bowel obstruction, questionable peritonitis as per CT. 3. Anemia. 4. Hypertension. 5. Possible pneumonia per chest x-ray on admission. PLAN: Remains stable, oncology follows her. Continue present care, antibiotics. Plan for chemothe rapy. Dictated By: KJ HUYNH SHERIFFS for LOLLY MUELLER/[place] Conf#: [id number] DID#: [id number]
--- NOTE | 2016-10-27 13:17 | PN ---
Date/Time of Note Date/Time of Note DATE: 10/27/16 TIME: 13:15 Assessment/Plan VTE Prophylaxis VTE Prophylaxis Intervention: other (per primary) Lines/Catheters IV Catheter Type (from Nrsg): PORT Urinary Cath still in place: No Assessment/Plan Assessment/Plan Chemotherapy to start tomorrow. Pt asking questions about the conversation Dr. Henderson had with Dr. Morataya at [facility]. I suggested she talk to him tomorrow. Subjective 24 Hr Interval Summary Free Text/Dictation Pt awake and alert. No new issues. Exam/Review of Systems Vital Signs Vitals Vital Signs Date Time Temp Pulse Resp B/P Pulse Ox O2 Delivery O2 Flow Rate FiO2 10/27/16 08:28 97.9 73 18 157/67 96 10/24/16 04:12 Room Air Intake and Output 10/26/16 10/26/16 10/27/16 15:00 23:00 07:00 Intake Total 450 ml 1220 ml 1570 ml Output Total 900 ml 550 ml Balance 450 ml 320 ml 1020 ml Exam Constitutional: alert, oriented Head: normocephalic ENMT: other (NG in place) Neck: supple Respiratory: clear to auscultation Cardiovascular: regular rate and rhythm Gastrointestinal: soft Results Result Diagram: 10/27/16 0429 10/27/16 0429 Results 24 hrs Laboratory Tests Test 10/26/16 21:08 10/27/16 04:29 10/27/16 08:58 Bedside Glucose 111 99 White Blood Count 7.6 Red Blood Count 2.92 L Hemoglobin 8.5 L Hematocrit 25.9 L Mean Corpuscular Volume 88.7 Mean Corpuscular Hemoglobin 29.1 Mean Corpuscular Hemoglobin Concent 32.8 Red Cell Distribution Width 14.5 Platelet Count 261 Mean Platelet Volume 9.9 Neutrophils % 76.2 Lymphocytes % 11.5 L Monocytes % 10.4 Eosinophils % 1.1 Basophils % 0.4 Nucleated Red Blood Cells % 0.0 Neutrophils # 5.8 Lymphocytes # 0.9 Monocytes # 0.8 Eosinophils # 0.1 Basophils # 0.0 Nucleated Red Blood Cells # 0.0 Sodium Level 142 Potassium Level 4.2 Chloride Level 105 Carbon Dioxide Level 27 Anion Gap 14 Blood Urea Nitrogen 19 Creatinine 0.61 Glucose Level 109 Calcium Level 8.5 Phosphorus Level 3.4 Magnesium Level 1.9 Total Bilirubin 1.9 H Direct Bilirubin 1.30 H Indirect Bilirubin 0.6 Aspartate Amino Transf (AST/SGOT) 117 H Alanine Aminotransferase (ALT/SGPT) 61 Alkaline Phosphatase 600 H Total Protein 6.8 Albumin 2.7 L Globulin 4.10 H Albumin/Globulin Ratio 0.65 Carcinoembryonic Antigen 1.9 Medications Medications Current Medications Clonidine HCl (Catapres-Tts 1 Patch) 1 patch Q7D TRANSDERM Last administered on 10/24/16 08:41; Admin Dose 1 PATCH; Start 10/17/16 at 06:00 Ondansetron HCl 4 mg 4 mg Q4H PRN IV NAUSEA AND/OR VOMITING Last administered on 10/24/16 14:14; Admin Dose 4 MG; Start 10/17/16 at 19:00 Total Parenteral Nutrition (Tpn) 1,000 ml @ 40 mls/hr Q24H IV Last administered on 10/27/16 00:47; Admin Dose 40 MLS/HR; Start 10/19/16 at 18:30 Fentanyl 1 patch 1 patch Q72H TRANSDERM Last administered on 10/25/16 18:34; Admin Dose 1 PATCH; Start 10/19/16 at 18:30 Doxycycline Hyclate/Sodium Chloride (Vibramycin/NS) 250 ml @ 250 mls/hr Q12 IVPB Last administered on 10/27/16 09:32; Admin Dose 250 MLS/HR; Start at 21:00 Hydromorphone HCl 1 mg 1 mg Q4H PRN IV BREAKTHROUGH PAIN Last administered on 01:04; Admin Dose 1 MG; Start 10/19/16 at 23:00 Potassium Chloride/Dextrose/ Sod Cl (D5-NS + KCl 20 Meq) 1,000 ml @ 70 mls/hr [id number] IV Last administered on 10/27/16 00:47; Admin Dose 70 MLS/HR; Start at 18:00 Lorazepam (Ativan) 0.5 mg Q8H PRN IV anxiety, insomnia Last administered on 15:24; Admin Dose 0.5 MG; Start 10/21/16 at 18:00 Diagnostic Test (Pha) (Accu-Chek) 1 ea Q12 XX Last administered on 10/27/16 09: 01; Admin Dose 1 EA; Start 10/22/16 at 09:00 Metoclopramide HCl 5 mg 5 mg Q6 IV Last administered on 10/27/16 11:56; Admin Dose 5 MG; Start 10/23/16 at 00:00 Meropenem (Merrem 1 Gm/100 ml (Pmx)) 100 ml @ 200 mls/hr Q12 IVPB Last administered on 10/27/16 08:57; Admin Dose 200 MLS/HR; Start 10/24/16 at 21:00 CHACHA LEDESMA MD October 27, 2016 13:17
--- NOTE | 2016-10-27 20:12 | PN ---
DATE: 10/27/2016 SUBJECTIVE: The patient complains of mild right upper quadrant abdominal pain. Less nausea and vom iting but still feels that she needs nasogastric tube. OBJECTIVE: VITAL SIGNS: Temperature 97.9, blood pressure 157/67, pulse of 73, respiration rate 18, O2 saturati on 96% to 99%. LABORATORY DATA: WBC 7.6, hemoglobin 8.5, hematocrit 25.9, platelet count 261,000. Sodium 142, pot assium 4.2, BUN 19, creatinine 0.61, glucose 109. Liver enzymes are notable for elevated total bili alvarado of 1.9, direct bilirubin of 1.3, AST of 117, alkaline phosphatase of 600, albumin of 2.7, and total protein is normal at 6.8. ASSESSMENT AND PLAN: 1. Metastatic stomach or gastric carcinoma. Agree with starting chemotherapy tomorrow since patien marnie's abdominal symptoms are most likely resulting from her progressive disease. 2. Nausea and vomiting, most likely due to obstructive diseases from increasing tumor load in the a bdomen. Will continue NG tube and total parenteral nutrition for now. We will try and see if we ca n go off the NG tube again after chemotherapy. 3. Elevated liver enzymes and findings of dilated biliary duct on recent abdominal CT. I discussed with the surgeon, Dr. Michel. He suspects that this is most likely progressive carcinoma in the ab domen causing problem as well and does not recommend either ERCP or other aggressive procedures in t his patient at this time. 4. Anemia. Recheck in a.m. If the patient's hematocrit drops below 25, will transfuse to support the patient through the palliative chemotherapy. 5. Peritonitis. Continue antibiotics as per infectious disease recommendation. Dictated By: KOBY FRANCO MD DP/NTS Conf#: [id number] DID#: [id number]
[2016-10-27 21:24] VITALS: BP 130/60; RESP 20
[2016-10-27] MEDS: DEXAMETHASONE 10 MG/ML 1 ML INJ IV SCH (22:05)
[2016-10-28] VITALS (9 sets, daily range): BP systolic 127–163; BP diastolic 63–78; PULSE 57–65; RESP 18–20; Ht 160 cm; Wt 44.2 kg
[2016-10-28] MEDS: TPN 1,000 ML IV SCH (00:41)
[2016-10-28] MEDS: METOCLOPRAMIDE 10 MG INJ IV SCH ×4 (00:41→17:49)
[2016-10-28] MEDS: DEXAMETHASONE 10 MG/ML 1 ML INJ IV SCH (03:56)
[2016-10-28] MEDS: ACCU-CHEK XX SCH ×2 (09:00→21:00)
[2016-10-28] MEDS: MEROPENEM 1 GM/100 ML (PMX) 100 ML IVPB SCH ×2 (09:22→21:26)
[2016-10-28] MEDS ORDERED: PACLITAXEL IV SCH (10:00)
[2016-10-28] MEDS ORDERED: SOD CHLORIDE 0.9% IV SCH ×2 (10:00→22:00)
[2016-10-28] MEDS: DOXYCYCLINE 100 MG in SOD CHLORIDE 0.9% 250 ML IVPB SCH ×2 (10:14→23:07)
[2016-10-28] MEDS ORDERED: ACETAMINOPHEN 1000MG/100ML IV 65 ML IVPB SCH (13:30)
[2016-10-28] MEDS ORDERED: DIPHENHYDRAMINE 50 MG INJ IV SCH (13:30)
--- NOTE | 2016-10-28 13:39 | CONS ---
DATE OF ADMISSION: 10/16/2016 DATE OF CONSULTATION: 10/28/2016 HEMATOLOGY/ONCOLOGY PROGRESS NOTE: SUBJECTIVE: The patient has no new complaints today. She wants to be sure that I did speak with Beltran Morataya, her treating oncologist at [facility]. I have reassured her that we did speak and that darshana herrera concurs with the treatment plan. VITAL SIGNS: Temperature 98, pulse 69, respirations 20, blood pressure 127/63, pulse oximetry 98. Patient's weight is 44.2 kilograms, height 63 inches. Body surface area 1.40 meters squared. SKIN: No ecchymoses. No petechiae or rashes. HEENT: No mucosal lesions. No scleral icterus. NECK: Supple, no jugular venous distention or thyroid enlargement. CHEST: Clear to auscultation and percussion. No rhonchi, wheezes, rales or rubs. There is a Port- A-Cath in place in the right anterior chest wall. HEART: Regular sinus rhythm, no S3, S4 or murmurs. ABDOMEN: Reveals a stoma in the left upper abdomen. There is firmness superior to the area of the stoma, but unable to detect a distinct mass. Liver is not palpable. EXTREMITIES: Good range of motion, no clubbing, edema or cyanosis. No palpable cords or Homans sig n. NEUROLOGIC: Normal. The sodium is 142, potassium 4.2, creatinine 0.61, BUN 19, bilirubin 1.9, direct bilirubin 1.3, ishmael line phosphatase 600. ASSESSMENT: 1. Metastatic gastric carcinoma with abdominal carcinomatosis. 2. Probable bowel obstruction secondary to #1. 3. Increasing bilirubin, possible obstructive jaundice. PLAN: The patient will start chemotherapy today. The patient's body surface area has now dropped t o 1.4 meters squared and patient is now 44.2 kilograms. Will therefore have to adjust medications. Paclitaxel will now be 84 mg weekly for 3 weeks on days 1, 8 and 15. Cyramza will be changed to 4 4 mg every 2 weeks. She will receive it on days 1 and 15. I am concerned about the patient's rising bilirubin and alkaline phosphatase. As noted, she did hav e biliary dilatation on recent CT scan. The patient may require some type of drainage procedure. Dictated By: RADHA RODRIGUES MD SR/NTS Conf#: [id number] [facility]#: [id number]
--- NOTE | 2016-10-28 13:51 | CONS ---
Date/Time of Note Date/Time of Note DATE: 10/28/16 TIME: 13:51 Assessment/Plan Assessment/Plan Chief Complaint/Hosp Course SUBJECTIVE: Patient is alert, feels good, looks comfortable, no fevers. ANTIMICROBIALS: 1. Meropenem. 2. Doxycycline. PHYSICAL EXAMINATION: GENERAL: This is a fragile, elderly woman who is alert, in no distress. HEENT: Head atraumatic, normocephalic. Sclerae anicteric. Buccal mucosa pink. NECK: Supple, trachea midline. CHEST: Rise symmetrical. Breath sounds clear. HEART: S1, S2. ABDOMEN: Soft, bowel tones present. EXTREMITIES: Without cyanosis. ASSESSMENT: 1. Metastatic gastric CA with abdominal carcinomatosis. 2. Partial small-bowel obstruction, questionable peritonitis as per CT. 3. Anemia. 4. Hypertension. 5. Possible pneumonia per chest x-ray on admission. PLAN: Remains stable, oncology follows, plan to start chemotherapy today. DW pt/staff Problems: Consultation Date/Type/Reason Admit Date/Time Oct 16, 2016 at 08:57 Initial Consult Date Type of Consultation: ID Referring Provider: KOBY FRANCO MD Exam/Review of Systems Vital Signs Vitals Vital Signs Date Time Temp Pulse Resp B/P Pulse Ox O2 Delivery O2 Flow Rate FiO2 10/28/16 08:23 98.0 69 20 127/63 98 Intake and Output 10/27/16 10/27/16 10/28/16 15:00 23:00 07:00 Intake Total 350 ml 1080 ml 1570 ml Output Total 10 ml 0 ml Balance 350 ml 1070 ml 1570 ml Results Result Diagram: 10/27/16 0429 10/27/16 0429 Results 24 hrs Laboratory Tests Test 10/27/16 21:26 10/28/16 07:30 10/28/16 09:14 Bedside Glucose 121 162 Prealbumin 6.7 L Medications Medications Current Medications Clonidine HCl (Catapres-Tts 1 Patch) 1 patch Q7D TRANSDERM Last administered on 10/24/16 08:41; Admin Dose 1 PATCH; Start 10/17/16 at 06:00 Ondansetron HCl 4 mg 4 mg Q4H PRN IV NAUSEA AND/OR VOMITING Last administered on 10/24/16 14:14; Admin Dose 4 MG; Start 10/17/16 at 19:00 Total Parenteral Nutrition (Tpn) 1,000 ml @ 40 mls/hr Q24H IV Last administered on 10/28/16 00:41; Admin Dose 40 MLS/HR; Start 10/19/16 at 18:30 Fentanyl 1 patch 1 patch Q72H TRANSDERM Last administered on 10/25/16 18:34; Admin Dose 1 PATCH; Start 10/19/16 at 18:30 Doxycycline Hyclate/Sodium Chloride (Vibramycin/NS) 250 ml @ 250 mls/hr Q12 IVPB Last administered on 10/28/16 10:14; Admin Dose 250 MLS/HR; Start at 21:00 Hydromorphone HCl 1 mg 1 mg Q4H PRN IV BREAKTHROUGH PAIN Last administered on 01:04; Admin Dose 1 MG; Start 10/19/16 at 23:00 Potassium Chloride/Dextrose/ Sod Cl (D5-NS + KCl 20 Meq) 1,000 ml @ 70 mls/hr [id number] IV Last administered on 10/27/16 15:57; Admin Dose 70 MLS/HR; Start at 18:00 Lorazepam (Ativan) 0.5 mg Q8H PRN IV anxiety, insomnia Last administered on 15:24; Admin Dose 0.5 MG; Start 10/21/16 at 18:00 Diagnostic Test (Pha) (Accu-Chek) 1 ea Q12 XX Last administered on 10/27/16 21: 58; Admin Dose 1 EA; Start 10/22/16 at 09:00 Metoclopramide HCl 5 mg 5 mg Q6 IV Last administered on 10/28/16 06:09; Admin Dose 5 MG; Start 10/23/16 at 00:00 Meropenem (Merrem 1 Gm/100 ml (Pmx)) 100 ml @ 200 mls/hr Q12 IVPB Last administered on 10/28/16 09:22; Admin Dose 200 MLS/HR; Start 10/24/16 at 21:00 Diphenhydramine HCl (Benadryl) 50 mg Q7D IV ; Start 10/28/16 at 09:00; Stop 11/11 at 09:01 Famotidine 20 mg 20 mg Q7D IV ; Start 10/28/16 at 09:00; Stop 11/11/16 at 09:01 Dexamethasone/ Dextrose (Decadron/D5W) 55 ml @ 252 mls/hr Q7D IV ; Start at 09:00; Stop 11/11/16 at 09:14 Dexamethasone (Decadron) 10 mg Q7D IV Last administered on 10/27/16 22:05; Admin Dose 10 MG; Start 10/27/16 at 22:00; Stop 11/10/16 at 22:01 Dexamethasone 10 mg 10 mg Q7D IV Last administered on 10/28/16 03:56; Admin Dose 10 MG; Start 10/28/16 at 04:00; Stop 11/11/16 at 04:01 Acetaminophen (Ofirmev 1000mg/ 100ml Iv) 65 ml @ 260 mls/hr Q14D IVPB ; Start 10/28/16 at 13:30; Stop 11/11/16 at 13:44 Diphenhydramine HCl 50 mg 50 mg Q14D IV ; Start 10/28/16 at 13:30; Stop 11/11/16 at 13:31 Paclitaxel/Sodium Chloride (taxOL/NS) 265 ml @ 88.333 mls/ hr Q7D IV ; Start at 10:00; Stop 11/11/16 at 12:59 KJ HUYNH NP October 28, 2016 13:51
[2016-10-28] MEDS: FAMOTIDINE 20 MG INJ IV SCH (16:25)
[2016-10-28] MEDS: DIPHENHYDRAMINE 50 MG INJ IV SCH ×2 (16:26→22:06)
[2016-10-28] MEDS: D5-NS + KCL 20 MEQ 1,000 ML IV SCH (16:26)
[2016-10-28] MEDS: DEXAMETHASONE 4 MG/ML 20 MG in DEXTROSE 5% 50 ML IV SCH (16:26)
[2016-10-28] MEDS: SOD CHLORIDE 0.9% IV SCH (18:08)
[2016-10-28] MEDS: PACLITAXEL IV SCH (18:08)
[2016-10-28] MEDS: FENTAnyl PATCH 12 MCG/HR TRANSDERM SCH (20:08)
--- NOTE | 2016-10-28 21:27 | PN ---
DATE: 10/28/2016 SUBJECTIVE: The patient is awake and alert, undergoing chemotherapy right now. Denies any nausea o r abdominal pain at this time. OBJECTIVE: VITAL SIGNS: Temperature 98.0, blood pressure 153/72, pulse of 63, respiration rate 18, O2 saturati on 96% on room air. HEENT: Pupils equally round, reactive to light. Anicteric sclerae. CHEST: Lungs are clear to auscultation. CARDIAC: Regular rate and rhythm. ABDOMEN: Active bowel sounds. No localized tenderness at this time. EXTREMITIES: No clubbing, cyanosis, or edema. ASSESSMENT AND PLAN: 1. Metastatic gastric carcinoma. Starting chemotherapy today. We will monitor the patient for neville e effects, which unfortunately does include nausea and vomiting. So will continue the NG tube sucti on and Zofran as needed for now. 2. Peritonitis. Continue meropenem and doxycycline for the full course of treatment, as guided by infectious disease software developer consultant. 3. Disposition. The patient is not comfortable going home, given the ongoing progressive nature of her disease. I will check with Dr. Henderson regarding whether it is better for her to be an inpatie nt or in a intermediate facility environment after she is done with the peritonitis treatment. Dictated By: KOBY FRANCO MD DP/NTS Conf#: [id number] DID#: [id number]
[2016-10-28] MEDS ORDERED: RAMUCIRUMAB IV SCH (22:00)
[2016-10-28] MEDS: ACETAMINOPHEN 1000MG/100ML IV 65 ML IVPB SCH (22:05)
[2016-10-29] VITALS (14 sets, daily range): BP systolic 140–188; BP diastolic 57–75; PULSE 52–73; RESP 16–19
[2016-10-29] MEDS: METOCLOPRAMIDE 10 MG INJ IV SCH ×4 (00:12→18:24)
[2016-10-29] MEDS: D5-NS + KCL 20 MEQ 1,000 ML IV SCH ×2 (02:12→05:09)
[2016-10-29 05:41] LABS: ADD SCAN DIFF NO
[2016-10-29 05:44] LABS: HEMATOCRIT 25.1 % (37.0-47.0); HEMOGLOBIN 8.3 g/dl (12.0-16.0); LYMPHOCYTES # 0.7 10^3/ul (0.8-2.9); LYMPHOCYTES % 5.7 % (15.0-51.0); MEAN CORPUSCULAR HEMOGLOBIN 28.3 pg (29.0-33.0); MEAN CORPUSCULAR HGB CONC 33.1 g/dl (32.0-37.0); MEAN CORPUSCULAR VOLUME 85.7 fl (82.0-101.0); MEAN PLATELET VOLUME 10.4 fl (7.4-10.4); MONOCYTE # 0.1 10^3/ul (0.3-0.9); MONOCYTES % 0.9 % (0.0-11.0); NEUTROPHIL # 10.5 10^3/ul (1.6-7.5); NEUTROPHILS % 92.8 % (39.0-77.0); PLATELET COUNT 241 10^3/UL (140-415); RED BLOOD COUNT 2.93 10^6/ul (4.20-5.40); RED CELL DISTRIBUTION WIDTH 14.9 % (11.5-14.5); WHITE BLOOD COUNT 11.4 10^3/ul (4.8-10.8)
[2016-10-29 06:04] LABS: MAGNESIUM 1.8 mg/dl (1.7-2.5); PHOSPHORUS 3.9 mg/dl (2.5-4.9)
[2016-10-29 06:10] LABS: ALBUMIN 2.8 g/dl (3.3-4.9)
[2016-10-29 06:11] LABS: POTASSIUM 4.3 mmol/L (3.5-5.1)
[2016-10-29 06:13] LABS: ALBUMIN/GLOBULIN RATIO 0.63; BILIRUBIN,DIRECT 1.9 mg/dl (0.00-0.20); BILIRUBIN,INDIRECT 0.7 mg/dl (0-1.1); BILIRUBIN,TOTAL 2.6 mg/dl (0.2-1.3); CALCIUM 8.4 mg/dl (8.4-10.2); CREATININE 0.67 mg/dl (0.44-1.00); TOTAL PROTEIN 7.2 g/dl (6.1-8.1)
[2016-10-29] MEDS: MEROPENEM 1 GM/100 ML (PMX) 100 ML IVPB SCH ×2 (08:34→21:13)
[2016-10-29] MEDS: TPN 1,000 ML IV SCH (08:37)
[2016-10-29] MEDS: ACCU-CHEK XX SCH ×2 (08:53→21:00)
[2016-10-29] MEDS: DOXYCYCLINE 100 MG in SOD CHLORIDE 0.9% 250 ML IVPB SCH ×2 (10:29→21:00)
--- NOTE | 2016-10-29 10:35 | RADRPT ---
PROCEDURE: US Abdomen. CLINICAL INDICATION: abdominal pain , elevated LFTs, gastric cancer TECHNIQUE: Multiple real-time images were acquired of the patient's right upper quadrant abdomen a nd retroperitoneum utilizing a high resolution transducer. COMPARISON: 10/23/2016 FINDINGS: The liver is normal in size. The liver measures 15.4 cm in length. There is a questionable echogenic mass in the right lobe of the liver measuring 2 cm. There is a possible 2.8 cm echogenic mass in the left lobe of the liver. The portal vein is patent with normal direction of flow. No intrahepatic biliary dilatation is seen . No gallstones are identified within the gallbladder. There is no pericholecystic fluid or gallbladd er wall thickening. The common bile duct measures 6 mm in maximal dimension. The pancreas is partially visualized and grossly unremarkable. There is no evidence of ascites. There is a right pleural effusion. The right kidney is normal in size, and demonstrate normal echogenicity and cortical thickness. The right kidney measures 10.5 cm in long dimension. There is no evidence of hydronephrosis. There are no kidney stones. RPTAT: AA IMPRESSION: Questionable echogenic masses in the liver. Further evaluation with liver MRI is recommended. No evidence of gallstones. Right pleural effusion. .Mat Bryan MD, MD Date Time Electronically viewed and signed by .Mat Bryan MD, MD on 10/29/2016 10:35 .S/
[2016-10-29] MEDS: ENALAPRILAT 1.25 MG INJ IV PRN (11:35)
--- NOTE | 2016-10-29 12:12 | PN ---
DATE: 10/29/2016 SUBJECTIVE: No events overnight. The patient is awake, sitting up in a chair and brushing teeth. She is in no distress. No fevers. WBC 11.4, platelets 241, neutrophils 92.8, BUN 23, creatinine 0.67. DIAGNOSTICS: Abdominal ultrasound revealed no gallstones, no pericholecystic fluid or gallbladder w all thickening, normal common bile duct, grossly unremarkable pancreas and no evidence of ascites. No hydronephrosis. No kidney stones. INDWELLINGS: Right chest Port-A-Cath, NG tube. ANTIMICROBIALS: The patient remains on: 1. Meropenem. 2. Doxycycline. PHYSICAL EXAMINATION: GENERAL: This is a cachectic elderly woman who is awake, in no distress. HEENT: Head atraumatic, normocephalic. Sclerae anicteric. Buccal mucosa dry. NECK: Supple. CHEST: Rise symmetrical. Breath sounds clear. HEART: S1, S2. ABDOMEN: Soft, bowel tones present. EXTREMITIES: Without cyanosis. ASSESSMENT: 1. Metastatic gastric carcinoma with abdominal carcinomatosis. 2. Partial small-bowel obstruction. 3. Anemia. 4. Hypertension. 5. Questionable pneumonia per chest x-ray on admission. PLAN: The patient remains stable. Oncology follows her. She is on chemotherapy. She is in no dis tress. We will continue her on current regimen. Dictated By: KJ HUYNH UNIX ANALYST for LOLLY MUELLER/[place] Conf#: [id number] DID#: [id number]
[2016-10-29] MEDS: DIPHENHYDRAMINE 50 MG INJ IV SCH (12:22)
[2016-10-29] MEDS: ACETAMINOPHEN 1000MG/100ML IV 65 ML IVPB SCH (12:22)
--- NOTE | 2016-10-29 12:40 | PN ---
Date/Time of Note Date/Time of Note DATE: 10/29/16 TIME: 12:37 Assessment/Plan VTE Prophylaxis VTE Prophylaxis Intervention: other (per primary) Lines/Catheters IV [facility]from [facility] PORTACATH Urinary Cath still in place: No Assessment/Plan Assessment/Plan Chemotherapy is starting. Hypertension is being treated by Dr. Saleem. I will follow up but second drug is just starting now. No side effects from chemotherapy so far. Subjective 24 Hr Interval Summary Free Text/Dictation Pt started chemotherapy last night but BP was elevated and one drug delayed until now.. No chemotherapy side effects so far. Exam/Review of Systems Vital Signs Vitals Vital Signs Date Time Temp Pulse Resp B/P Pulse Ox O2 Delivery O2 Flow Rate FiO2 10/29/16 12:14 59 156/70 10/29/16 11:38 18 98 Room Air 10/29/16 08:35 98.2 Intake and Output 10/28/16 10/28/16 10/29/16 15:00 23:00 07:00 Intake Total 350 ml 1575 ml 900 ml Output Total 0 ml 0 ml Balance 350 ml 1575 ml 900 ml Exam Constitutional: alert, oriented Head: normocephalic ENMT: other (NG tube in place) Neck: supple Respiratory: clear to auscultation Cardiovascular: regular rate and rhythm Results Result Diagram: 10/29/16 0456 10/29/16 0456 Results 24 hrs Laboratory Tests Test 10/28/16 22:14 10/29/16 04:56 10/29/16 08:51 Bedside Glucose 111 113 White Blood Count 11.4 #H Red Blood Count 2.93 L Hemoglobin 8.3 L Hematocrit 25.1 L Mean Corpuscular Volume 85.7 Mean Corpuscular Hemoglobin 28.3 L Mean Corpuscular Hemoglobin Concent 33.1 Red Cell Distribution Width 14.9 H Platelet Count 241 Mean Platelet Volume 10.4 Neutrophils % 92.8 H Lymphocytes % 5.7 L Monocytes % 0.9 Eosinophils % 0.0 Basophils % 0.0 Nucleated Red Blood Cells % 0.0 Neutrophils # 10.5 H Lymphocytes # 0.7 L Monocytes # 0.1 L Eosinophils # 0.0 Basophils # 0.0 Nucleated Red Blood Cells # 0.0 Sodium Level 140 Potassium Level 4.3 Chloride Level 103 Carbon Dioxide Level 25 Anion Gap 16 Blood Urea Nitrogen 23 H Creatinine 0.67 Glucose Level 131 Calcium Level 8.4 Phosphorus Level 3.9 Magnesium Level 1.8 Total Bilirubin 2.6 H Direct Bilirubin 1.90 H Indirect Bilirubin 0.7 Aspartate Amino Transf (AST/SGOT) 154 H Alanine Aminotransferase (ALT/SGPT) 106 H Alkaline Phosphatase 640 H Total Protein 7.2 Albumin 2.8 L Globulin 4.40 H Albumin/Globulin Ratio 0.63 Medications Medications Current Medications Clonidine HCl (Catapres-Tts 1 Patch) 1 patch Q7D TRANSDERM Last administered on 10/24/16 08:41; Admin Dose 1 PATCH; Start 10/17/16 at 06:00 Ondansetron HCl 4 mg 4 mg Q4H PRN IV NAUSEA AND/OR VOMITING Last administered on 10/24/16 14:14; Admin Dose 4 MG; Start 10/17/16 at 19:00 Total Parenteral Nutrition (Tpn) 1,000 ml @ 40 mls/hr Q24H IV Last administered on 10/29/16 08:37; Admin Dose 40 MLS/HR; Start 10/19/16 at 18:30 Fentanyl 1 patch 1 patch Q72H TRANSDERM Last administered on 10/28/16 20:08; Admin Dose 1 PATCH; Start 10/19/16 at 18:30 Doxycycline Hyclate/Sodium Chloride (Vibramycin/NS) 250 ml @ 250 mls/hr Q12 IVPB Last administered on 10/29/16 10:29; Admin Dose 250 MLS/HR; Start at 21:00 Hydromorphone HCl 1 mg 1 mg Q4H PRN IV BREAKTHROUGH PAIN Last administered on 01:04; Admin Dose 1 MG; Start 10/19/16 at 23:00 Potassium Chloride/Dextrose/ Sod Cl (D5-NS + KCl 20 Meq) 1,000 ml @ 70 mls/hr [id number] IV Last administered on 10/29/16 05:09; Admin Dose 70 MLS/HR; Start at 18:00 Lorazepam (Ativan) 0.5 mg Q8H PRN IV anxiety, insomnia Last administered on 15:24; Admin Dose 0.5 MG; Start 10/21/16 at 18:00 Diagnostic Test (Pha) (Accu-Chek) 1 ea Q12 XX Last administered on 10/27/16 21: 58; Admin Dose 1 EA; Start 10/22/16 at 09:00 Metoclopramide HCl 5 mg 5 mg Q6 IV Last administered on 10/29/16 11:34; Admin Dose 5 MG; Start 10/23/16 at 00:00 Meropenem (Merrem 1 Gm/100 ml (Pmx)) 100 ml @ 200 mls/hr Q12 IVPB Last administered on 10/29/16 08:34; Admin Dose 200 MLS/HR; Start 10/24/16 at 21:00 Diphenhydramine HCl (Benadryl) 50 mg Q7D IV Last administered on 10/28/16 16:26 ; Admin Dose 50 MG; Start 10/28/16 at 09:00; Stop 11/11/16 at 09:01 Famotidine 20 mg 20 mg Q7D IV Last administered on 10/28/16 16:25; Admin Dose 20 MG; Start 10/28/16 at 09:00; Stop 11/11/16 at 09:01 Dexamethasone/ Dextrose (Decadron/D5W) 55 ml @ 252 mls/hr Q7D IV Last administered on 10/28/16 16:26; Admin Dose 252 MLS/HR; Start 10/28/16 at 09:00; Stop 11/11/16 at 09:14 Dexamethasone (Decadron) 10 mg Q7D IV Last administered on 10/27/16 22:05; Admin Dose 10 MG; Start 10/27/16 at 22:00; Stop 11/10/16 at 22:01 Dexamethasone 10 mg 10 mg Q7D IV Last administered on 10/28/16 03:56; Admin Dose 10 MG; Start 10/28/16 at 04:00; Stop 11/11/16 at 04:01 Paclitaxel 84 mg/ Sodium Chloride 264 ml @ 88.333 mls/ hr Q7D IV Last administered on 10/28/16 18:08; Admin Dose 88.333 MLS/HR; Start 10/28/16 at 16:30 ; Stop 11/11/16 at 19:30 Acetaminophen (Ofirmev 1000mg/ 100ml Iv) 65 ml @ 260 mls/hr Q14D IVPB Last administered on 10/29/16 12:22; Admin Dose 260 MLS/HR; Start 10/28/16 at 21:00; Stop 11/11/16 at 21:14 Diphenhydramine HCl 50 mg 50 mg Q14D IV Last administered on 10/29/16 12:22; Admin Dose 50 MG; Start 10/28/16 at 21:00; Stop 11/11/16 at 21:01 Ramucirumab/ Sodium Chloride (Cyramza/NS) 285.3 ml @ 250 mls/hr Q14D IV ; Start 10/28/16 at 22:00; Stop 11/11/16 at 23:09 Enalaprilat (Vasotec Iv) 0.625 mg Q4H PRN IV ELEVATED BLOOD PRESSURE Last administered on 10/29/16 11:35; Admin Dose 0.625 MG; Start 10/29/16 at 10:00 CHACHA LEDESMA MD October 29, 2016 12:40
--- NOTE | 2016-10-29 22:45 | PN ---
DATE: 10/29/2016 SUBJECTIVE: Patient reports no nausea, vomiting, or abdominal pain today, and has no side effect to the 2nd chemo given. OBJECTIVE: VITAL SIGNS: Temperature 98.2, blood pressure ranges from 140/65-166/72, pulse of 58, respiration r ate 18, O2 saturation 99%. HEENT: Pupils equally round, reactive to light, very mild icteric sclerae. LUNGS: Notable for bibasilar crackles. CARDIAC: Regular rate and rhythm. A I-II/ systolic murmur. ABDOMEN: Active bowel sounds, soft, nondistended, nontender at this time. LABORATORY DATA: WBC 11.4, hemoglobin 8.3, hematocrit 25.1, platelet count 241,000. Sodium 140, po tassium 4.3, BUN 23, creatinine 0.67, glucose 131. Total bilirubin is 2.6, direct bilirubin 1.9, T 154, ALT 106, alkaline phosphatase 640, albumin 2.8, total protein 7.2, globulin 4.4. The abdomin al ultrasound shows a questionable echogenic mass in the right lobe of the liver measuring 2.0 cm an d a possible 2.8 cm echogenic mass in the left lobe of the liver. No evidence of gallstones. ASSESSMENT AND PLAN: 1. Abdominal pain, nausea, and vomiting, improving clinically today. We will try patient on 24 zain rs of clamping the NG tube, and if she is able to tolerate this without recurrence of nausea, vomiti ng, we may try a clear liquid diet tomorrow. 2. Metastatic gastric carcinoma. The patient finished with the first dose of chemotherapeutic agen ts. We will keep the patient in the hospital to continue chemotherapy. 3. Peritonitis. Continue IV antibiotics. 4. Hypertension. We will add IV enalapril for now, and if patient is able to tolerate p.o., we lilliam l resume her normal Losartan. Dictated By: KOBY FRANCO MD DP/[place] Conf#: [id number] DID#: [id number]
[2016-10-30] VITALS: BP 150/66; PULSE 56; RESP 18
[2016-10-30] MEDS: METOCLOPRAMIDE 10 MG INJ IV SCH ×4 (00:13→17:13)
[2016-10-30 00:32] VITALS: BP 150/66; RESP 18
[2016-10-30] MEDS: D5-NS + KCL 20 MEQ 1,000 ML IV SCH ×2 (02:01→18:32)
[2016-10-30 05:38] LABS: ADD SCAN DIFF NO
[2016-10-30 05:56] LABS: BASOPHILS % 0.1 % (0.0-2.0); HEMATOCRIT 24.5 % (37.0-47.0); LYMPHOCYTES % 10.1 % (15.0-51.0); MEAN CORPUSCULAR HEMOGLOBIN 27.8 pg (29.0-33.0); MEAN CORPUSCULAR HGB CONC 32.7 g/dl (32.0-37.0); MEAN CORPUSCULAR VOLUME 85.1 fl (82.0-101.0); MONOCYTE # 0.4 10^3/ul (0.3-0.9); MONOCYTES % 3.9 % (0.0-11.0); NEUTROPHIL # 8.3 10^3/ul (1.6-7.5); NEUTROPHILS % 85.4 % (39.0-77.0); PLATELET COUNT 232 10^3/UL (140-415); RED BLOOD COUNT 2.88 10^6/ul (4.20-5.40); RED CELL DISTRIBUTION WIDTH 15.4 % (11.5-14.5); WHITE BLOOD COUNT 9.8 10^3/ul (4.8-10.8)
[2016-10-30 06:07] LABS: POTASSIUM 4.4 mmol/L (3.5-5.1)
[2016-10-30 06:10] LABS: CREATININE 0.59 mg/dl (0.44-1.00)
[2016-10-30 06:11] LABS: MAGNESIUM 1.9 mg/dl (1.7-2.5)
[2016-10-30 06:24] VITALS: BP 150/67; PULSE 56; RESP 18
[2016-10-30 08:13] VITALS: BP 147/68; RESP 18
[2016-10-30] MEDS: ACCU-CHEK XX SCH ×2 (08:18→21:00)
[2016-10-30] MEDS: MEROPENEM 1 GM/100 ML (PMX) 100 ML IVPB SCH ×2 (08:30→21:20)
[2016-10-30] MEDS: DOXYCYCLINE 100 MG in SOD CHLORIDE 0.9% 250 ML IVPB SCH ×2 (10:16→21:00)
--- NOTE | 2016-10-30 10:49 | PN ---
Date/Time of Note Date/Time of Note DATE: 10/30/16 TIME: 10:46 Assessment/Plan VTE Prophylaxis VTE Prophylaxis Intervention: anti-embolic stocking, other Lines/Catheters IV [facility]from [facility] portacath Urinary Cath still in place: No Assessment/Plan Assessment/Plan Chemotherapy well tolerated. Hgb 8. Will monitor and transfuse if she declines. Continue TPN for nutritional support. BP being followed by Dr. Saleem. Note that next chemotherapy dose is due 11/04. Subjective 24 Hr Interval Summary Free Text/Dictation Pt had no side effects from the chemotherapy. Exam/Review of Systems Vital Signs Vitals Vital Signs Date Time Temp Pulse Resp B/P Pulse Ox O2 Delivery O2 Flow Rate FiO2 10/30/16 08:13 98.0 60 18 147/68 100 10/30/16 06:24 Room Air Intake and Output 10/29/16 10/29/16 10/30/16 15:00 23:00 07:00 Intake Total 700.3 ml 350 ml 1310 ml Output Total 850 ml 900 ml Balance 700.3 ml -500 ml 410 ml Exam Constitutional: alert, oriented Head: normocephalic ENMT: other (NG tube in place) Neck: supple Respiratory: clear to auscultation Cardiovascular: regular rate and rhythm Gastrointestinal: non-tender, soft Results Result Diagram: 10/30/16 0442 10/30/16 0442 Results 24 hrs Laboratory Tests Test 10/29/16 21:18 10/30/16 04:42 10/30/16 08:12 Bedside Glucose 125 103 White Blood Count 9.8 Red Blood Count 2.88 L Hemoglobin 8.0 L Hematocrit 24.5 L Mean Corpuscular Volume 85.1 Mean Corpuscular Hemoglobin 27.8 L Mean Corpuscular Hemoglobin Concent 32.7 Red Cell Distribution Width 15.4 H Platelet Count 232 Mean Platelet Volume 11.0 H Neutrophils % 85.4 H Lymphocytes % 10.1 L Monocytes % 3.9 Eosinophils % 0.0 Basophils % 0.1 Nucleated Red Blood Cells % 0.0 Neutrophils # 8.3 H Lymphocytes # 1.0 Monocytes # 0.4 Eosinophils # 0.0 Basophils # 0.0 Nucleated Red Blood Cells # 0.0 Sodium Level 140 Potassium Level 4.4 Chloride Level 106 Carbon Dioxide Level 26 Anion Gap 12 Blood Urea Nitrogen 27 H Creatinine 0.59 Glucose Level 86 # Calcium Level 8.0 L Phosphorus Level 3.0 Magnesium Level 1.9 Medications Medications Current Medications Clonidine HCl (Catapres-Tts 1 Patch) 1 patch Q7D TRANSDERM Last administered on 10/24/16 08:41; Admin Dose 1 PATCH; Start 10/17/16 at 06:00 Ondansetron HCl 4 mg 4 mg Q4H PRN IV NAUSEA AND/OR VOMITING Last administered on 10/24/16 14:14; Admin Dose 4 MG; Start 10/17/16 at 19:00 Total Parenteral Nutrition (Tpn) 1,000 ml @ 40 mls/hr Q24H IV Last administered on 10/29/16 08:37; Admin Dose 40 MLS/HR; Start 10/19/16 at 18:30 Fentanyl 1 patch 1 patch Q72H TRANSDERM Last administered on 10/28/16 20:08; Admin Dose 1 PATCH; Start 10/19/16 at 18:30 Doxycycline Hyclate/Sodium Chloride (Vibramycin/NS) 250 ml @ 250 mls/hr Q12 IVPB Last administered on 10/30/16 10:16; Admin Dose 250 MLS/HR; Start at 21:00 Hydromorphone HCl 1 mg 1 mg Q4H PRN IV BREAKTHROUGH PAIN Last administered on 01:04; Admin Dose 1 MG; Start 10/19/16 at 23:00 Potassium Chloride/Dextrose/ Sod Cl (D5-NS + KCl 20 Meq) 1,000 ml @ 70 mls/hr [id number] IV Last administered on 10/30/16 02:01; Admin Dose 70 MLS/HR; Start at 18:00 Lorazepam (Ativan) 0.5 mg Q8H PRN IV anxiety, insomnia Last administered on 15:24; Admin Dose 0.5 MG; Start 10/21/16 at 18:00 Diagnostic Test (Pha) (Accu-Chek) 1 ea Q12 XX Last administered on 10/27/16 21: 58; Admin Dose 1 EA; Start 10/22/16 at 09:00 Metoclopramide HCl 5 mg 5 mg Q6 IV Last administered on 10/30/16 06:24; Admin Dose 5 MG; Start 10/23/16 at 00:00 Meropenem (Merrem 1 Gm/100 ml (Pmx)) 100 ml @ 200 mls/hr Q12 IVPB Last administered on 10/30/16 08:30; Admin Dose 200 MLS/HR; Start 10/24/16 at 21:00 Diphenhydramine HCl (Benadryl) 50 mg Q7D IV Last administered on 10/28/16 16:26 ; Admin Dose 50 MG; Start 10/28/16 at 09:00; Stop 11/11/16 at 09:01 Famotidine 20 mg 20 mg Q7D IV Last administered on 10/28/16 16:25; Admin Dose 20 MG; Start 10/28/16 at 09:00; Stop 11/11/16 at 09:01 Dexamethasone/ Dextrose (Decadron/D5W) 55 ml @ 252 mls/hr Q7D IV Last administered on 10/28/16 16:26; Admin Dose 252 MLS/HR; Start 10/28/16 at 09:00; Stop 11/11/16 at 09:14 Dexamethasone (Decadron) 10 mg Q7D IV Last administered on 10/27/16 22:05; Admin Dose 10 MG; Start 10/27/16 at 22:00; Stop 11/10/16 at 22:01 Dexamethasone 10 mg 10 mg Q7D IV Last administered on 10/28/16 03:56; Admin Dose 10 MG; Start 10/28/16 at 04:00; Stop 11/11/16 at 04:01 Paclitaxel 84 mg/ Sodium Chloride 264 ml @ 88.333 mls/ hr Q7D IV Last administered on 10/28/16 18:08; Admin Dose 88.333 MLS/HR; Start 10/28/16 at 16:30 ; Stop 11/11/16 at 19:30 Acetaminophen (Ofirmev 1000mg/ 100ml Iv) 65 ml @ 260 mls/hr Q14D IVPB Last administered on 10/29/16 12:22; Admin Dose 260 MLS/HR; Start 10/28/16 at 21:00; Stop 11/11/16 at 21:14 Diphenhydramine HCl 50 mg 50 mg Q14D IV Last administered on 10/29/16 12:22; Admin Dose 50 MG; Start 10/28/16 at 21:00; Stop 11/11/16 at 21:01 Ramucirumab/ Sodium Chloride (Cyramza/NS) 285.3 ml @ 250 mls/hr Q14D IV Last administered on 10/29/16 12:41; Admin Dose 250 MLS/HR; Start 10/28/16 at 22:00; Stop 11/11/16 at 23:09 Enalaprilat (Vasotec Iv) 0.625 mg Q4H PRN IV ELEVATED BLOOD PRESSURE Last administered on 10/29/16 11:35; Admin Dose 0.625 MG; Start 10/29/16 at 10:00 CHACAH LEDESMA MD October 30, 2016 10:49
[2016-10-30] MEDS: TPN 1,000 ML IV SCH (12:47)
--- NOTE | 2016-10-30 13:33 | CONS ---
Date/Time of Note Date/Time of Note DATE: 10/30/16 TIME: 13:32 Assessment/Plan Assessment/Plan Chief Complaint/Hosp Course SUBJECTIVE: Patient is alert, feels good, no fevers. ANTIMICROBIALS: 1. Meropenem. 2. Doxycycline. PHYSICAL EXAMINATION: GENERAL: This is a fragile, elderly woman who is alert, in no distress. HEENT: Head atraumatic, normocephalic. Sclerae anicteric. Buccal mucosa pink. NECK: Supple, trachea midline. CHEST: Rise symmetrical. Breath sounds clear. HEART: S1, S2. ABDOMEN: Soft, bowel tones present. EXTREMITIES: Without cyanosis. ASSESSMENT: 1. Metastatic gastric CA with abdominal carcinomatosis. 2. Partial small-bowel obstruction, questionable peritonitis as per CT. 3. Anemia. 4. Hypertension. PLAN: Remains stable, tolerates chemo, oncology follows, completing abx DW pt/staff Problems: Consultation Date/Type/Reason Admit Date/Time Oct 16, 2016 at 08:57 Type of Consultation: ID Referring Provider: KOBY FRANCO MD Exam/Review of Systems Vital Signs Vitals Vital Signs Date Time Temp Pulse Resp B/P Pulse Ox O2 Delivery O2 Flow Rate FiO2 10/30/16 08:13 98.0 60 18 147/68 100 10/30/16 06:24 Room Air Intake and Output 10/29/16 10/29/16 10/30/16 15:00 23:00 07:00 Intake Total 700.3 ml 350 ml 1310 ml Output Total 850 ml 900 ml Balance 700.3 ml -500 ml 410 ml Results Result Diagram: 10/30/16 0442 10/30/16 0442 Results 24 hrs Laboratory Tests Test 10/29/16 21:18 10/30/16 04:42 10/30/16 08:12 Bedside Glucose 125 103 White Blood Count 9.8 Red Blood Count 2.88 L Hemoglobin 8.0 L Hematocrit 24.5 L Mean Corpuscular Volume 85.1 Mean Corpuscular Hemoglobin 27.8 L Mean Corpuscular Hemoglobin Concent 32.7 Red Cell Distribution Width 15.4 H Platelet Count 232 Mean Platelet Volume 11.0 H Neutrophils % 85.4 H Lymphocytes % 10.1 L Monocytes % 3.9 Eosinophils % 0.0 Basophils % 0.1 Nucleated Red Blood Cells % 0.0 Neutrophils # 8.3 H Lymphocytes # 1.0 Monocytes # 0.4 Eosinophils # 0.0 Basophils # 0.0 Nucleated Red Blood Cells # 0.0 Sodium Level 140 Potassium Level 4.4 Chloride Level 106 Carbon Dioxide Level 26 Anion Gap 12 Blood Urea Nitrogen 27 H Creatinine 0.59 Glucose Level 86 # Calcium Level 8.0 L Phosphorus Level 3.0 Magnesium Level 1.9 Medications Medications Current Medications Clonidine HCl (Catapres-Tts 1 Patch) 1 patch Q7D TRANSDERM Last administered on 10/24/16 08:41; Admin Dose 1 PATCH; Start 10/17/16 at 06:00 Ondansetron HCl 4 mg 4 mg Q4H PRN IV NAUSEA AND/OR VOMITING Last administered on 10/24/16 14:14; Admin Dose 4 MG; Start 10/17/16 at 19:00 Total Parenteral Nutrition (Tpn) 1,000 ml @ 40 mls/hr Q24H IV Last administered on 10/30/16 12:47; Admin Dose 40 MLS/HR; Start 10/19/16 at 18:30 Fentanyl 1 patch 1 patch Q72H TRANSDERM Last administered on 10/28/16 20:08; Admin Dose 1 PATCH; Start 10/19/16 at 18:30 Doxycycline Hyclate/Sodium Chloride (Vibramycin/NS) 250 ml @ 250 mls/hr Q12 IVPB Last administered on 10/30/16 10:16; Admin Dose 250 MLS/HR; Start at 21:00 Hydromorphone HCl 1 mg 1 mg Q4H PRN IV BREAKTHROUGH PAIN Last administered on 01:04; Admin Dose 1 MG; Start 10/19/16 at 23:00 Potassium Chloride/Dextrose/ Sod Cl (D5-NS + KCl 20 Meq) 1,000 ml @ 70 mls/hr [id number] IV Last administered on 10/30/16 02:01; Admin Dose 70 MLS/HR; Start at 18:00 Lorazepam (Ativan) 0.5 mg Q8H PRN IV anxiety, insomnia Last administered on 15:24; Admin Dose 0.5 MG; Start 10/21/16 at 18:00 Diagnostic Test (Pha) (Accu-Chek) 1 ea Q12 XX Last administered on 10/27/16 21: 58; Admin Dose 1 EA; Start 10/22/16 at 09:00 Metoclopramide HCl 5 mg 5 mg Q6 IV Last administered on 10/30/16 12:47; Admin Dose 5 MG; Start 10/23/16 at 00:00 Meropenem (Merrem 1 Gm/100 ml (Pmx)) 100 ml @ 200 mls/hr Q12 IVPB Last administered on 10/30/16 08:30; Admin Dose 200 MLS/HR; Start 10/24/16 at 21:00 Diphenhydramine HCl (Benadryl) 50 mg Q7D IV Last administered on 10/28/16 16:26 ; Admin Dose 50 MG; Start 10/28/16 at 09:00; Stop 11/11/16 at 09:01 Famotidine 20 mg 20 mg Q7D IV Last administered on 10/28/16 16:25; Admin Dose 20 MG; Start 10/28/16 at 09:00; Stop 11/11/16 at 09:01 Dexamethasone/ Dextrose (Decadron/D5W) 55 ml @ 252 mls/hr Q7D IV Last administered on 10/28/16 16:26; Admin Dose 252 MLS/HR; Start 10/28/16 at 09:00; Stop 11/11/16 at 09:14 Dexamethasone (Decadron) 10 mg Q7D IV Last administered on 10/27/16 22:05; Admin Dose 10 MG; Start 10/27/16 at 22:00; Stop 11/10/16 at 22:01 Dexamethasone 10 mg 10 mg Q7D IV Last administered on 10/28/16 03:56; Admin Dose 10 MG; Start 10/28/16 at 04:00; Stop 11/11/16 at 04:01 Paclitaxel 84 mg/ Sodium Chloride 264 ml @ 88.333 mls/ hr Q7D IV Last administered on 10/28/16 18:08; Admin Dose 88.333 MLS/HR; Start 10/28/16 at 16:30 ; Stop 11/11/16 at 19:30 Acetaminophen (Ofirmev 1000mg/ 100ml Iv) 65 ml @ 260 mls/hr Q14D IVPB Last administered on 10/29/16 12:22; Admin Dose 260 MLS/HR; Start 10/28/16 at 21:00; Stop 11/11/16 at 21:14 Diphenhydramine HCl 50 mg 50 mg Q14D IV Last administered on 10/29/16 12:22; Admin Dose 50 MG; Start 10/28/16 at 21:00; Stop 11/11/16 at 21:01 Ramucirumab/ Sodium Chloride (Cyramza/NS) 285.3 ml @ 250 mls/hr Q14D IV Last administered on 10/29/16 12:41; Admin Dose 250 MLS/HR; Start 10/28/16 at 22:00; Stop 11/11/16 at 23:09 Enalaprilat (Vasotec Iv) 0.625 mg Q4H PRN IV ELEVATED BLOOD PRESSURE Last administered on 10/29/16 11:35; Admin Dose 0.625 MG; Start 10/29/16 at 10:00 KJ HUYNH NP October 30, 2016 13:33
--- NOTE | 2016-10-30 14:26 | PN ---
DATE: 10/30/2016 SUBJECTIVE: The patient is awake, alert, sitting up in chair. No nausea, vomiting for the past 24 hours, off NG tube suction, minimal diffuse abdominal pain. OBJECTIVE: VITAL SIGNS: Temperature 98.0, blood pressure 147/68, pulse of 60, respiration rate 18, O2 saturati on 100% on room air. HEENT: Pupils equally round, reactive to light. Mildly icteric sclerae. Oropharynx clear. LUNGS: Minimal bibasilar crackles. CARDIAC: II/ holosystolic murmur. ABDOMEN: Active bowel sounds, soft, nondistended. Mild diffuse tenderness. The left ileostomy with no surrounding erythema. EXTREMITIES: No clubbing, cyanosis or edema. LABORATORY DATA: WBC 9.8, hemoglobin 8.0, hematocrit 24.5, platelet count 232,000. Sodium 140, pot assium 4.4, chloride 106, carbon dioxide 26, BUN 27, creatinine 0.59, glucose 86, calcium 8.0. Magn esium 1.9, phosphorus 3.0. ASSESSMENT AND PLAN: 1. Nausea, vomiting and abdominal pain, clinically improved but will try patient on clear liquid di et and see if the nausea, vomiting returns. We will continue to treat peritonitis with IV antibioti cs as recommended by infectious disease design studio consultant. 2. Metastatic gastric cell carcinoma. Patient has completed the first week chemotherapy without no table side effect except for mildly elevated blood pressure on the day following the paclitaxel so t hat we had to hold her second medication which was Ramucirumab for one day. The patient also receiv ed dexamethasone as well as Benadryl and Pepcid with the administrations these antineoplastic agents . The first weeks administration of paclitaxel and Ramucirumab without notable side effect except f or mildly elevated blood pressure after the first medications administration, will continue to recei ve these medications on a weekly and every 14 day schedule as planned by oncologist. 3. Hypertension. We will continue to cover with IV Vasotec until patient is able to tolerate oral medications better then she can go back to her usual Losartan. We have the patient on clonidine pat which does control her most of the time. Dictated By: KOBY FRANCO MD DP/NTS Conf#: [id number] DID#: [id number]
[2016-10-30 19:00] VITALS: BP 161/72; RESP 18
[2016-10-31] MEDS: METOCLOPRAMIDE 10 MG INJ IV SCH ×4 (00:18→17:36)
[2016-10-31] MEDS: ENALAPRILAT 1.25 MG INJ IV PRN (00:26)
[2016-10-31 00:27] VITALS: BP 169/72; PULSE 62; RESP 18
[2016-10-31] MEDS: CLONIDINE 0.1 MG/24 HR PATCH TRANSDERM SCH (05:55)
[2016-10-31 06:00] VITALS: BP 156/67; PULSE 68; RESP 18
[2016-10-31 07:00] VITALS: BP 130/58; RESP 18
[2016-10-31] MEDS: MEROPENEM 1 GM/100 ML (PMX) 100 ML IVPB SCH ×2 (08:34→20:30)
[2016-10-31] MEDS: ACCU-CHEK XX SCH ×2 (09:00→21:00)
[2016-10-31] MEDS: DOXYCYCLINE 100 MG in SOD CHLORIDE 0.9% 250 ML IVPB SCH ×2 (09:08→21:52)
--- NOTE | 2016-10-31 11:17 | CONS ---
Date/Time of Note Date/Time of Note DATE: 10/31/16 TIME: 11:16 Assessment/Plan Assessment/Plan Chief Complaint/Hosp Course SUBJECTIVE: Patient is alert, feels good, no fevers. ANTIMICROBIALS: 1. Meropenem. 2. Doxycycline. PHYSICAL EXAMINATION: GENERAL: This is a fragile, elderly woman who is alert, in no distress. HEENT: Head atraumatic, normocephalic. Sclerae anicteric. Buccal mucosa pink. NECK: Supple, trachea midline. CHEST: Rise symmetrical. Breath sounds clear. HEART: S1, S2. ABDOMEN: Soft, bowel tones present. EXTREMITIES: Without cyanosis. ASSESSMENT: 1. Metastatic gastric CA with abdominal carcinomatosis. 2. Partial small-bowel obstruction, questionable peritonitis as per CT. 3. Anemia. 4. Hypertension. PLAN: Remains stable, tolerates chemo, oncology follows, completing abx DW pt/staff Problems: Consultation Date/Type/Reason Admit Date/Time Oct 16, 2016 at 08:57 Type of Consultation: ID Referring Provider: KOBY FRANCO MD Exam/Review of Systems Vital Signs Vitals Vital Signs Date Time Temp Pulse Resp B/P Pulse Ox O2 Delivery O2 Flow Rate FiO2 10/31/16 07:00 97.5 73 18 130/58 95 10/31/16 06:00 Room Air Intake and Output 10/30/16 10/30/16 10/31/16 15:00 23:00 07:00 Intake Total 590 ml 1730 ml 720 ml Output Total 300 ml Balance 590 ml 1430 ml 720 ml Results Result Diagram: 10/30/16 0442 10/30/16 0442 Results 24 hrs Laboratory Tests Test 10/30/16 21:23 10/31/16 09:07 Bedside Glucose 96 84 Medications Medications Current Medications Clonidine HCl (Catapres-Tts 1 Patch) 1 patch Q7D TRANSDERM Last administered on 10/31/16 05:55; Admin Dose 1 PATCH; Start 10/17/16 at 06:00 Ondansetron HCl 4 mg 4 mg Q4H PRN IV NAUSEA AND/OR VOMITING Last administered on 10/24/16 14:14; Admin Dose 4 MG; Start 10/17/16 at 19:00 Total Parenteral Nutrition (Tpn) 1,000 ml @ 40 mls/hr Q24H IV Last administered on 10/30/16 12:47; Admin Dose 40 MLS/HR; Start 10/19/16 at 18:30 Fentanyl 1 patch 1 patch Q72H TRANSDERM Last administered on 10/28/16 20:08; Admin Dose 1 PATCH; Start 10/19/16 at 18:30 Doxycycline Hyclate/Sodium Chloride (Vibramycin/NS) 250 ml @ 250 mls/hr Q12 IVPB Last administered on 10/31/16 09:08; Admin Dose 250 MLS/HR; Start at 21:00 Hydromorphone HCl 1 mg 1 mg Q4H PRN IV BREAKTHROUGH PAIN Last administered on 01:04; Admin Dose 1 MG; Start 10/19/16 at 23:00 Potassium Chloride/Dextrose/ Sod Cl (D5-NS + KCl 20 Meq) 1,000 ml @ 70 mls/hr [id number] IV Last administered on 10/30/16 18:32; Admin Dose 70 MLS/HR; Start at 18:00 Lorazepam (Ativan) 0.5 mg Q8H PRN IV anxiety, insomnia Last administered on 15:24; Admin Dose 0.5 MG; Start 10/21/16 at 18:00 Diagnostic Test (Pha) (Accu-Chek) 1 ea Q12 XX Last administered on 10/27/16 21: 58; Admin Dose 1 EA; Start 10/22/16 at 09:00 Metoclopramide HCl 5 mg 5 mg Q6 IV Last administered on 10/31/16 05:53; Admin Dose 5 MG; Start 10/23/16 at 00:00 Meropenem (Merrem 1 Gm/100 ml (Pmx)) 100 ml @ 200 mls/hr Q12 IVPB Last administered on 10/31/16 08:34; Admin Dose 200 MLS/HR; Start 10/24/16 at 21:00 Diphenhydramine HCl (Benadryl) 50 mg Q7D IV Last administered on 10/28/16 16:26 ; Admin Dose 50 MG; Start 10/28/16 at 09:00; Stop 11/11/16 at 09:01 Famotidine 20 mg 20 mg Q7D IV Last administered on 10/28/16 16:25; Admin Dose 20 MG; Start 10/28/16 at 09:00; Stop 11/11/16 at 09:01 Dexamethasone/ Dextrose (Decadron/D5W) 55 ml @ 252 mls/hr Q7D IV Last administered on 10/28/16 16:26; Admin Dose 252 MLS/HR; Start 10/28/16 at 09:00; Stop 11/11/16 at 09:14 Dexamethasone (Decadron) 10 mg Q7D IV Last administered on 10/27/16 22:05; Admin Dose 10 MG; Start 10/27/16 at 22:00; Stop 11/10/16 at 22:01 Dexamethasone 10 mg 10 mg Q7D IV Last administered on 10/28/16 03:56; Admin Dose 10 MG; Start 10/28/16 at 04:00; Stop 11/11/16 at 04:01 Paclitaxel 84 mg/ Sodium Chloride 264 ml @ 88.333 mls/ hr Q7D IV Last administered on 10/28/16 18:08; Admin Dose 88.333 MLS/HR; Start 10/28/16 at 16:30 ; Stop 11/11/16 at 19:30 Acetaminophen (Ofirmev 1000mg/ 100ml Iv) 65 ml @ 260 mls/hr Q14D IVPB Last administered on 10/29/16 12:22; Admin Dose 260 MLS/HR; Start 10/28/16 at 21:00; Stop 11/11/16 at 21:14 Diphenhydramine HCl 50 mg 50 mg Q14D IV Last administered on 10/29/16 12:22; Admin Dose 50 MG; Start 10/28/16 at 21:00; Stop 11/11/16 at 21:01 Ramucirumab/ Sodium Chloride (Cyramza/NS) 285.3 ml @ 250 mls/hr Q14D IV Last administered on 10/29/16 12:41; Admin Dose 250 MLS/HR; Start 10/28/16 at 22:00; Stop 11/11/16 at 23:09 Enalaprilat (Vasotec Iv) 0.625 mg Q4H PRN IV ELEVATED BLOOD PRESSURE Last administered on 10/31/16 00:26; Admin Dose 0.625 MG; Start 10/29/16 at 10:00 KJ HUYNH NP October 31, 2016 11:17
[2016-10-31] MEDS: D5-NS + KCL 20 MEQ 1,000 ML IV SCH (12:03)
--- NOTE | 2016-10-31 13:38 | PN ---
DATE: 10/31/2016 SUBJECTIVE: No acute changes. The patient is lying comfortably in bed, started on clears. She is in no distress, no fevers. INDWELLINGS: Right chest Port-A-Cath. ANTIMICROBIALS: Doxycycline. PHYSICAL EXAMINATION: GENERAL: This is a well-developed, fragile, elderly woman who is awake, in no distress. HEENT: Head atraumatic, normocephalic. Sclerae anicteric. Buccal mucosa dry. NECK: Supple, trachea midline. CHEST: Rise symmetrical. Breath sounds diminished to bases. HEART: S1, S2. ABDOMEN: Soft, bowel tones present. EXTREMITIES: Without cyanosis. ASSESSMENT: 1. Small-bowel obstruction, resolving. 2. Status post pneumonia. 3. Anemia 4. Hypertension. 5. Metastatic gastric cancer with abdominal carcinomatosis, in chemotherapy. PLAN: The patient remains stable, completing antibiotics. Continue present care. Follow oncology recommendations. Dictated By: KJ HUYNH LEAD MINER for LOLLY MUELLER/[place] Conf#: [id number] DID#: [id number]
[2016-10-31 14:00] VITALS: BP 148/70; PULSE 79; RESP 20
[2016-10-31] MEDS: TPN 1,000 ML IV SCH (14:13)
--- NOTE | 2016-10-31 17:32 | PN ---
Date/Time of Note Date/Time of Note DATE: 10/31/16 TIME: 17:29 Assessment/Plan VTE Prophylaxis VTE Prophylaxis Intervention: SCD's Lines/Catheters IV [facility]ter [facility] (from [facility]): PORTACATH Urinary Cath still in place: No Assessment/Plan Assessment/Plan Patient is a 66 year old woman with metastatic gastric cancer to peritoneum >Metastatic gastric cancer Patient administered taxane and ramuricumab Continue to monitor >Anemia Secondary to above Prophylactic blood transfusion for hemoglobin less than 8 g/dL Subjective 24 Hr Interval Summary Free Text/Dictation Patient awake, alert. Family at bedside No complaints noted after treatment other than somnolence after administration of benadryl Exam/Review of Systems Vital Signs Vitals Vital Signs Date Time Temp Pulse Resp B/P Pulse Ox O2 Delivery O2 Flow Rate FiO2 10/31/16 14:00 79 20 148/70 96 Room Air 10/31/16 07:00 97.5 Intake and Output 10/30/16 10/30/16 10/31/16 15:00 23:00 07:00 Intake Total 590 ml 1730 ml 720 ml Output Total 300 ml Balance 590 ml 1430 ml 720 ml Exam Constitutional: alert, oriented Psych: nl mood/affect, no complaints Head: atraumatic, normocephalic Eyes: nl conjunctiva, nl sclera Neck: non-tender, supple Respiratory: clear to auscultation, normal air movement Cardiovascular: regular rate and rhythm Gastrointestinal: non-tender, soft Extremities: normal pulses Neurological: 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-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 intact, nl mental status Results Result Diagram: 10/30/16 0442 10/30/16 0442 Results 24 hrs Laboratory Tests Test 10/30/16 21:23 10/31/16 09:07 Bedside Glucose 96 84 Medications Medications Current Medications Clonidine HCl (Catapres-Tts 1 Patch) 1 patch Q7D TRANSDERM Last administered on 10/31/16 05:55; Admin Dose 1 PATCH; Start 10/17/16 at 06:00 Ondansetron HCl 4 mg 4 mg Q4H PRN IV NAUSEA AND/OR VOMITING Last administered on 10/24/16 14:14; Admin Dose 4 MG; Start 10/17/16 at 19:00 Total Parenteral Nutrition (Tpn) 1,000 ml @ 40 mls/hr Q24H IV Last administered on 10/31/16 14:13; Admin Dose 40 MLS/HR; Start 10/19/16 at 18:30 Fentanyl 1 patch 1 patch Q72H TRANSDERM Last administered on 10/28/16 20:08; Admin Dose 1 PATCH; Start 10/19/16 at 18:30 Doxycycline Hyclate/Sodium Chloride (Vibramycin/NS) 250 ml @ 250 mls/hr Q12 IVPB Last administered on 10/31/16 09:08; Admin Dose 250 MLS/HR; Start at 21:00 Hydromorphone HCl 1 mg 1 mg Q4H PRN IV BREAKTHROUGH PAIN Last administered on 01:04; Admin Dose 1 MG; Start 10/19/16 at 23:00 Potassium Chloride/Dextrose/ Sod Cl (D5-NS + KCl 20 Meq) 1,000 ml @ 70 mls/hr [id number] IV Last administered on 10/31/16 12:03; Admin Dose 70 MLS/HR; Start at 18:00 Lorazepam (Ativan) 0.5 mg Q8H PRN IV anxiety, insomnia Last administered on 15:24; Admin Dose 0.5 MG; Start 10/21/16 at 18:00 Diagnostic Test (Pha) (Accu-Chek) 1 ea Q12 XX Last administered on 10/27/16 21: 58; Admin Dose 1 EA; Start 10/22/16 at 09:00 Metoclopramide HCl 5 mg 5 mg Q6 IV Last administered on 10/31/16 12:03; Admin Dose 5 MG; Start 10/23/16 at 00:00 Meropenem (Merrem 1 Gm/100 ml (Pmx)) 100 ml @ 200 mls/hr Q12 IVPB Last administered on 10/31/16 08:34; Admin Dose 200 MLS/HR; Start 10/24/16 at 21:00 Diphenhydramine HCl (Benadryl) 50 mg Q7D IV Last administered on 10/28/16 16:26 ; Admin Dose 50 MG; Start 10/28/16 at 09:00; Stop 11/11/16 at 09:01 Famotidine 20 mg 20 mg Q7D IV Last administered on 10/28/16 16:25; Admin Dose 20 MG; Start 10/28/16 at 09:00; Stop 11/11/16 at 09:01 Dexamethasone/ Dextrose (Decadron/D5W) 55 ml @ 252 mls/hr Q7D IV Last administered on 10/28/16 16:26; Admin Dose 252 MLS/HR; Start 10/28/16 at 09:00; Stop 11/11/16 at 09:14 Dexamethasone (Decadron) 10 mg Q7D IV Last administered on 10/27/16 22:05; Admin Dose 10 MG; Start 10/27/16 at 22:00; Stop 11/10/16 at 22:01 Dexamethasone 10 mg 10 mg Q7D IV Last administered on 10/28/16 03:56; Admin Dose 10 MG; Start 10/28/16 at 04:00; Stop 11/11/16 at 04:01 Paclitaxel 84 mg/ Sodium Chloride 264 ml @ 88.333 mls/ hr Q7D IV Last administered on 10/28/16 18:08; Admin Dose 88.333 MLS/HR; Start 10/28/16 at 16:30 ; Stop 11/11/16 at 19:30 Acetaminophen (Ofirmev 1000mg/ 100ml Iv) 65 ml @ 260 mls/hr Q14D IVPB Last administered on 10/29/16 12:22; Admin Dose 260 MLS/HR; Start 10/28/16 at 21:00; Stop 11/11/16 at 21:14 Diphenhydramine HCl 50 mg 50 mg Q14D IV Last administered on 10/29/16 12:22; Admin Dose 50 MG; Start 10/28/16 at 21:00; Stop 11/11/16 at 21:01 Ramucirumab/ Sodium Chloride (Cyramza/NS) 285.3 ml @ 250 mls/hr Q14D IV Last administered on 10/29/16 12:41; Admin Dose 250 MLS/HR; Start 10/28/16 at 22:00; Stop 11/11/16 at 23:09 Enalaprilat (Vasotec Iv) 0.625 mg Q4H PRN IV ELEVATED BLOOD PRESSURE Last administered on 10/31/16 00:26; Admin Dose 0.625 MG; Start 10/29/16 at 10:00 DEMARCUS CHOUDHURY MD October 31, 2016 17:32
[2016-10-31] MEDS: FENTAnyl PATCH 12 MCG/HR TRANSDERM SCH (17:40)
[2016-10-31 20:22] VITALS: BP 155/67; RESP 19
[2016-10-31] MEDS: ONDANSETRON 4 MG INJ IV PRN (20:30)
[2016-11-01 00:18] VITALS: BP 148/64; PULSE 65; RESP 18
[2016-11-01] MEDS: METOCLOPRAMIDE 10 MG INJ IV SCH ×4 (00:18→18:13)
[2016-11-01] MEDS: D5-NS + KCL 20 MEQ 1,000 ML IV SCH ×2 (01:42→05:33)
[2016-11-01 05:55] LABS: ADD SCAN DIFF NO
[2016-11-01 05:58] LABS: ABNORMAL IP MESSAGE 1; HEMATOCRIT 21.2 % (37.0-47.0); MEAN CORPUSCULAR HEMOGLOBIN 28.2 pg (29.0-33.0); MEAN CORPUSCULAR HGB CONC 32.5 g/dl (32.0-37.0); MEAN CORPUSCULAR VOLUME 86.5 fl (82.0-101.0); MEAN PLATELET VOLUME 11.3 fl (7.4-10.4); PLATELET COUNT 191 10^3/UL (140-415); RED BLOOD COUNT 2.45 10^6/ul (4.20-5.40); RED CELL DISTRIBUTION WIDTH 15.4 % (11.5-14.5); WHITE BLOOD COUNT 4.4 10^3/ul (4.8-10.8)
[2016-11-01 06:56] LABS: HEMOGLOBIN 6.9 g/dl (12.0-16.0)
[2016-11-01 07:01] LABS: ALBUMIN 2.6 g/dl (3.3-4.9)
[2016-11-01 07:02] LABS: POTASSIUM 4.3 mmol/L (3.5-5.1)
[2016-11-01 07:04] LABS: ALBUMIN/GLOBULIN RATIO 0.7; BILIRUBIN,DIRECT 0.4 mg/dl (0.00-0.20); BILIRUBIN,INDIRECT 0.7 mg/dl (0-1.1); BILIRUBIN,TOTAL 1.1 mg/dl (0.2-1.3); CREATININE 0.48 mg/dl (0.44-1.00); TOTAL PROTEIN 6.3 g/dl (6.1-8.1)
[2016-11-01 07:05] LABS: MAGNESIUM 1.8 mg/dl (1.7-2.5); PHOSPHORUS 2.9 mg/dl (2.5-4.9)
[2016-11-01 08:33] VITALS: BP 152/69; RESP 18
[2016-11-01] MEDS: DOXYCYCLINE 100 MG in SOD CHLORIDE 0.9% 250 ML IVPB SCH (09:51)
[2016-11-01] MEDS: MEROPENEM 1 GM/100 ML (PMX) 100 ML IVPB SCH (09:51)
[2016-11-01] MEDS: ACCU-CHEK XX SCH ×2 (09:51→21:00)
[2016-11-01 11:12] LABS: LYMPHOCYTES # 0.5 10^3/ul (0.8-2.9); NEUTROPHIL # 3.9 10^3/ul (1.6-7.5); OVALOCYTES OCCASIONAL
--- NOTE | 2016-11-01 15:21 | CONS ---
Date/Time of Note Date/Time of Note DATE: 11/01/16 TIME: 15:20 Assessment/Plan Assessment/Plan Chief Complaint/Hosp Course SUBJECTIVE: Patient is alert, feels good, no fevers. ANTIMICROBIALS: 1. Meropenem. 2. Doxycycline. PHYSICAL EXAMINATION: GENERAL: This is a fragile, elderly woman who is alert, in no distress. HEENT: Head atraumatic, normocephalic. Sclerae anicteric. Buccal mucosa pink. NECK: Supple, trachea midline. CHEST: Rise symmetrical. Breath sounds clear. HEART: S1, S2. ABDOMEN: Soft, bowel tones present. EXTREMITIES: Without cyanosis. ASSESSMENT: 1. Metastatic gastric CA with abdominal carcinomatosis. 2. Partial small-bowel obstruction, questionable peritonitis as per CT. 3. Anemia. 4. Hypertension. PLAN: Remains stable, tolerates chemo, oncology follows, dc abx DW pt/staff Problems: Consultation Date/Type/Reason Admit Date/Time Oct 16, 2016 at 08:57 Type of Consultation: ID Referring Provider: KOBY FRANCO MD Exam/Review of Systems Vital Signs Vitals Vital Signs Date Time Temp Pulse Resp B/P Pulse Ox O2 Delivery O2 Flow Rate FiO2 11/01/16 08:33 98.6 71 18 152/69 98 11/01/16 00:18 Room Air Intake and Output 10/31/16 10/31/16 11/01/16 15:00 23:00 07:00 Intake Total 1550 ml 820 ml 1240 ml Output Total 200 ml 100 ml Balance 1550 ml 620 ml 1140 ml Results Result Diagram: 11/01/16 0514 11/01/16 0514 Results 24 hrs Laboratory Tests Test 10/31/16 20:46 11/01/16 05:14 11/01/16 08:17 Bedside Glucose 95 103 White Blood Count 4.4 #L Red Blood Count 2.45 L Hemoglobin 6.9 *L Hematocrit 21.2 L Mean Corpuscular Volume 86.5 Mean Corpuscular Hemoglobin 28.2 L Mean Corpuscular Hemoglobin Concent 32.5 Red Cell Distribution Width 15.4 H Platelet Count 191 Mean Platelet Volume 11.3 H Neutrophils % 88.0 H Lymphocytes % 11.0 L Eosinophils % 1.0 Neutrophils # 3.9 Lymphocytes # 0.5 L Eosinophils # 0.0 Differential Comment MANUAL DIFF Ovalocytes OCCASIONAL Sodium Level 140 Potassium Level 4.3 Chloride Level 104 Carbon Dioxide Level 26 Anion Gap 14 Blood Urea Nitrogen 22 H Creatinine 0.48 Glucose Level 78 Calcium Level 8.0 L Phosphorus Level 2.9 Magnesium Level 1.8 Total Bilirubin 1.1 Direct Bilirubin 0.40 H Indirect Bilirubin 0.7 Aspartate Amino Transf (AST/SGOT) 56 H Alanine Aminotransferase (ALT/SGPT) 58 Alkaline Phosphatase 336 H Total Protein 6.3 Albumin 2.6 L Globulin 3.70 H Albumin/Globulin Ratio 0.70 Medications Medications Current Medications Clonidine HCl (Catapres-Tts 1 Patch) 1 patch Q7D TRANSDERM Last administered on 10/31/16 05:55; Admin Dose 1 PATCH; Start 10/17/16 at 06:00 Ondansetron HCl 4 mg 4 mg Q4H PRN IV NAUSEA AND/OR VOMITING Last administered on 10/31/16 20:30; Admin Dose 4 MG; Start 10/17/16 at 19:00 Total Parenteral Nutrition (Tpn) 1,000 ml @ 40 mls/hr Q24H IV Last administered on 10/31/16 14:13; Admin Dose 40 MLS/HR; Start 10/19/16 at 18:30 Fentanyl 1 patch 1 patch Q72H TRANSDERM Last administered on 10/31/16 17:40; Admin Dose 1 PATCH; Start 10/19/16 at 18:30 Doxycycline Hyclate/Sodium Chloride (Vibramycin/NS) 250 ml @ 250 mls/hr Q12 IVPB Last administered on 11/01/16 09:51; Admin Dose 250 MLS/HR; Start at 21:00 Hydromorphone HCl 1 mg 1 mg Q4H PRN IV BREAKTHROUGH PAIN Last administered on 01:04; Admin Dose 1 MG; Start 10/19/16 at 23:00 Potassium Chloride/Dextrose/ Sod Cl (D5-NS + KCl 20 Meq) 1,000 ml @ 70 mls/hr [id number] IV Last administered on 11/01/16 05:33; Admin Dose 70 MLS/HR; Start at 18:00 Lorazepam (Ativan) 0.5 mg Q8H PRN IV anxiety, insomnia Last administered on 15:24; Admin Dose 0.5 MG; Start 10/21/16 at 18:00 Diagnostic Test (Pha) (Accu-Chek) 1 ea Q12 XX Last administered on 11/01/16 09: 51; Admin Dose 1 EA; Start 10/22/16 at 09:00 Metoclopramide HCl 5 mg 5 mg Q6 IV Last administered on 11/01/16 13:29; Admin Dose 5 MG; Start 10/23/16 at 00:00 Meropenem (Merrem 1 Gm/100 ml (Pmx)) 100 ml @ 200 mls/hr Q12 IVPB Last administered on 11/01/16 09:51; Admin Dose 200 MLS/HR; Start 10/24/16 at 21:00 Diphenhydramine HCl (Benadryl) 50 mg Q7D IV Last administered on 10/28/16 16:26 ; Admin Dose 50 MG; Start 10/28/16 at 09:00; Stop 11/11/16 at 09:01 Famotidine 20 mg 20 mg Q7D IV Last administered on 10/28/16 16:25; Admin Dose 20 MG; Start 10/28/16 at 09:00; Stop 11/11/16 at 09:01 Dexamethasone/ Dextrose (Decadron/D5W) 55 ml @ 252 mls/hr Q7D IV Last administered on 10/28/16 16:26; Admin Dose 252 MLS/HR; Start 10/28/16 at 09:00; Stop 11/11/16 at 09:14 Dexamethasone (Decadron) 10 mg Q7D IV Last administered on 10/27/16 22:05; Admin Dose 10 MG; Start 10/27/16 at 22:00; Stop 11/10/16 at 22:01 Dexamethasone 10 mg 10 mg Q7D IV Last administered on 10/28/16 03:56; Admin Dose 10 MG; Start 10/28/16 at 04:00; Stop 11/11/16 at 04:01 Paclitaxel 84 mg/ Sodium Chloride 264 ml @ 88.333 mls/ hr Q7D IV Last administered on 10/28/16 18:08; Admin Dose 88.333 MLS/HR; Start 10/28/16 at 16:30 ; Stop 11/11/16 at 19:30 Acetaminophen (Ofirmev 1000mg/ 100ml Iv) 65 ml @ 260 mls/hr Q14D IVPB Last administered on 10/29/16 12:22; Admin Dose 260 MLS/HR; Start 10/28/16 at 21:00; Stop 11/11/16 at 21:14 Diphenhydramine HCl 50 mg 50 mg Q14D IV Last administered on 10/29/16 12:22; Admin Dose 50 MG; Start 10/28/16 at 21:00; Stop 11/11/16 at 21:01 Ramucirumab/ Sodium Chloride (Cyramza/NS) 285.3 ml @ 250 mls/hr Q14D IV Last administered on 10/29/16 12:41; Admin Dose 250 MLS/HR; Start 10/28/16 at 22:00; Stop 11/11/16 at 23:09 Enalaprilat (Vasotec Iv) 0.625 mg Q4H PRN IV ELEVATED BLOOD PRESSURE Last administered on 10/31/16 00:26; Admin Dose 0.625 MG; Start 10/29/16 at 10:00 KJ HUYNH NP November 01, 2016 15:21
[2016-11-01 16:00] VITALS: BP 183/72; PULSE 67; RESP 16
[2016-11-01] MEDS: ENALAPRILAT 1.25 MG INJ IV PRN (16:18)
--- NOTE | 2016-11-01 17:04 | PN ---
Date/Time of Note Date/Time of Note DATE: 11/01/16 TIME: 17:01 Assessment/Plan VTE Prophylaxis VTE Prophylaxis Intervention: SCD's Lines/Catheters IV [facility] portacath Urinary Cath still in place: No Assessment/Plan Assessment/Plan 66 year old woman with metastatic gastric cancer to peritoneum >Metastatic gastric cancer Patient administered taxane and ramuricumab Continue to monitor >Anemia Secondary to above Prophylactic blood transfusion for hemoglobin less than 8 g/dL >Icterus CT abdomen showed masses. MRI was recommended LFT's improved overall. I will re-order for tomorrow. Subjective 24 Hr Interval Summary Free Text/Dictation Patient notes more icterus Exam/Review of Systems Vital Signs Vitals Vital Signs Date Time Temp Pulse Resp B/P Pulse Ox O2 Delivery O2 Flow Rate FiO2 11/01/16 08:33 98.6 71 18 152/69 98 11/01/16 00:18 Room Air Intake and Output 10/31/16 10/31/16 11/01/16 15:00 23:00 07:00 Intake Total 1550 ml 820 ml 1240 ml Output Total 200 ml 100 ml Balance 1550 ml 620 ml 1140 ml Exam Constitutional: alert, oriented Eyes: EOMI, nl conjunctiva ENMT: nl lips & teeth Neck: non-tender, supple Respiratory: clear to auscultation, normal air movement Cardiovascular: nl pulses, regular rate and rhythm Gastrointestinal: non-tender, soft Extremities: normal pulses Neurological: nl mental status Results Result Diagram: 11/01/16 0514 11/01/16 0514 Results 24 hrs Laboratory Tests Test 10/31/16 20:46 11/01/16 05:14 11/01/16 08:17 Bedside Glucose 95 103 White Blood Count 4.4 #L Red Blood Count 2.45 L Hemoglobin 6.9 *L Hematocrit 21.2 L Mean Corpuscular Volume 86.5 Mean Corpuscular Hemoglobin 28.2 L Mean Corpuscular Hemoglobin Concent 32.5 Red Cell Distribution Width 15.4 H Platelet Count 191 Mean Platelet Volume 11.3 H Neutrophils % 88.0 H Lymphocytes % 11.0 L Eosinophils % 1.0 Neutrophils # 3.9 Lymphocytes # 0.5 L Eosinophils # 0.0 Differential Comment MANUAL DIFF Ovalocytes OCCASIONAL Sodium Level 140 Potassium Level 4.3 Chloride Level 104 Carbon Dioxide Level 26 Anion Gap 14 Blood Urea Nitrogen 22 H Creatinine 0.48 Glucose Level 78 Calcium Level 8.0 L Phosphorus Level 2.9 Magnesium Level 1.8 Total Bilirubin 1.1 Direct Bilirubin 0.40 H Indirect Bilirubin 0.7 Aspartate Amino Transf (AST/SGOT) 56 H Alanine Aminotransferase (ALT/SGPT) 58 Alkaline Phosphatase 336 H Total Protein 6.3 Albumin 2.6 L Globulin 3.70 H Albumin/Globulin Ratio 0.70 Medications Medications Current Medications Clonidine HCl (Catapres-Tts 1 Patch) 1 patch Q7D TRANSDERM Last administered on 10/31/16 05:55; Admin Dose 1 PATCH; Start 10/17/16 at 06:00 Ondansetron HCl 4 mg 4 mg Q4H PRN IV NAUSEA AND/OR VOMITING Last administered on 10/31/16 20:30; Admin Dose 4 MG; Start 10/17/16 at 19:00 Total Parenteral Nutrition (Tpn) 1,000 ml @ 40 mls/hr Q24H IV Last administered on 10/31/16 14:13; Admin Dose 40 MLS/HR; Start 10/19/16 at 18:30 Fentanyl (Duragesic 12 Mcg/Hr Patch) 1 patch Q72H TRANSDERM Last administered on 10/31/16 17:40; Admin Dose 1 PATCH; Start 10/19/16 at 18:30 Hydromorphone HCl 1 mg 1 mg Q4H PRN IV BREAKTHROUGH PAIN Last administered on 01:04; Admin Dose 1 MG; Start 10/19/16 at 23:00 Potassium Chloride/Dextrose/ Sod Cl (D5-NS + KCl 20 Meq) 1,000 ml @ 70 mls/hr [id number] IV Last administered on 11/01/16 05:33; Admin Dose 70 MLS/HR; Start at 18:00 Lorazepam (Ativan) 0.5 mg Q8H PRN IV anxiety, insomnia Last administered on 15:24; Admin Dose 0.5 MG; Start 10/21/16 at 18:00 Diagnostic Test (Pha) (Accu-Chek) 1 ea Q12 XX Last administered on 11/01/16 09: 51; Admin Dose 1 EA; Start 10/22/16 at 09:00 Metoclopramide HCl (Reglan) 5 mg Q6 IV Last administered on 11/01/16 13:29; Admin Dose 5 MG; Start 10/23/16 at 00:00 Diphenhydramine HCl (Benadryl) 50 mg Q7D IV Last administered on 10/28/16 16:26 ; Admin Dose 50 MG; Start 10/28/16 at 09:00; Stop 11/11/16 at 09:01 Famotidine 20 mg 20 mg Q7D IV Last administered on 10/28/16 16:25; Admin Dose 20 MG; Start 10/28/16 at 09:00; Stop 11/11/16 at 09:01 Dexamethasone/ Dextrose (Decadron/D5W) 55 ml @ 252 mls/hr Q7D IV Last administered on 10/28/16 16:26; Admin Dose 252 MLS/HR; Start 10/28/16 at 09:00; Stop 11/11/16 at 09:14 Dexamethasone (Decadron) 10 mg Q7D IV Last administered on 10/27/16 22:05; Admin Dose 10 MG; Start 10/27/16 at 22:00; Stop 11/10/16 at 22:01 Dexamethasone 10 mg 10 mg Q7D IV Last administered on 10/28/16 03:56; Admin Dose 10 MG; Start 10/28/16 at 04:00; Stop 11/11/16 at 04:01 Paclitaxel 84 mg/ Sodium Chloride 264 ml @ 88.333 mls/ hr Q7D IV Last administered on 10/28/16 18:08; Admin Dose 88.333 MLS/HR; Start 10/28/16 at 16:30 ; Stop 11/11/16 at 19:30 Acetaminophen (Ofirmev 1000mg/ 100ml Iv) 65 ml @ 260 mls/hr Q14D IVPB Last administered on 10/29/16 12:22; Admin Dose 260 MLS/HR; Start 10/28/16 at 21:00; Stop 11/11/16 at 21:14 Diphenhydramine HCl 50 mg 50 mg Q14D IV Last administered on 10/29/16 12:22; Admin Dose 50 MG; Start 10/28/16 at 21:00; Stop 11/11/16 at 21:01 Ramucirumab/ Sodium Chloride (Cyramza/NS) 285.3 ml @ 250 mls/hr Q14D IV Last administered on 10/29/16 12:41; Admin Dose 250 MLS/HR; Start 10/28/16 at 22:00; Stop 11/11/16 at 23:09 Enalaprilat (Vasotec Iv) 0.625 mg Q4H PRN IV ELEVATED BLOOD PRESSURE Last administered on 11/01/16 16:18; Admin Dose 0.625 MG; Start 10/29/16 at 10:00 DEMARCUS CHOUDHURY MD November 01, 2016 17:04
[2016-11-01 17:23] VITALS: BP 157/68; PULSE 66; RESP 16
[2016-11-01] MEDS: TPN 1,000 ML IV SCH (18:14)
[2016-11-01 19:19] VITALS: BP 152/70; RESP 16
[2016-11-02] MEDS: METOCLOPRAMIDE 10 MG INJ IV SCH ×5 (00:13→23:07)
[2016-11-02] MEDS: D5-NS + KCL 20 MEQ 1,000 ML IV SCH ×2 (00:13→20:10)
[2016-11-02 04:22] LABS: ADD SCAN DIFF NO
[2016-11-02 04:26] LABS: BASOPHILS % 0.4 % (0.0-2.0); EOSINOPHILS # 0.1 10^3/ul (0.0-0.5); EOSINOPHILS % 1.7 % (0.0-7.0); HEMOGLOBIN 8.4 g/dl (12.0-16.0); LYMPHOCYTES # 0.8 10^3/ul (0.8-2.9); LYMPHOCYTES % 17.4 % (15.0-51.0); MEAN CORPUSCULAR HEMOGLOBIN 27.4 pg (29.0-33.0); MEAN CORPUSCULAR HGB CONC 32.3 g/dl (32.0-37.0); MEAN CORPUSCULAR VOLUME 84.7 fl (82.0-101.0); MEAN PLATELET VOLUME 10.8 fl (7.4-10.4); MONOCYTE # 0.1 10^3/ul (0.3-0.9); MONOCYTES % 1.7 % (0.0-11.0); NEUTROPHIL # 3.7 10^3/ul (1.6-7.5); NEUTROPHILS % 78.6 % (39.0-77.0); PLATELET COUNT 156 10^3/UL (140-415); RED BLOOD COUNT 3.07 10^6/ul (4.20-5.40); RED CELL DISTRIBUTION WIDTH 16.3 % (11.5-14.5); WHITE BLOOD COUNT 4.7 10^3/ul (4.8-10.8)
[2016-11-02 05:04] LABS: ALBUMIN 2.6 g/dl (3.3-4.9); BILIRUBIN,DIRECT 1.2 mg/dl (0.00-0.20); BILIRUBIN,INDIRECT 0.9 mg/dl (0-1.1); BILIRUBIN,TOTAL 2.1 mg/dl (0.2-1.3); TOTAL PROTEIN 5.7 g/dl (6.1-8.1)
[2016-11-02 05:09] LABS: CALCIUM 8.5 mg/dl (8.4-10.2); CREATININE 0.53 mg/dl (0.44-1.00); MAGNESIUM 1.8 mg/dl (1.7-2.5); PHOSPHORUS 2.9 mg/dl (2.5-4.9); POTASSIUM 5.3 mmol/L (3.5-5.1)
[2016-11-02 08:00] VITALS: BP 128/60; RESP 16
[2016-11-02] MEDS: ACCU-CHEK XX SCH ×2 (09:00→21:00)
--- NOTE | 2016-11-02 13:08 | CONS ---
Date/Time of Note Date/Time of Note DATE: 11/02/16 TIME: 13:06 Assessment/Plan Assessment/Plan Chief Complaint/Hosp Course SUBJECTIVE: No events, started on clears, requires NG suctioning after PO intake , nad PHYSICAL EXAMINATION: GENERAL: This is a fragile, elderly woman who is alert, in no distress. HEENT: Head atraumatic, normocephalic. Sclerae anicteric. Buccal mucosa pink. NECK: Supple, trachea midline. CHEST: Rise symmetrical. Breath sounds clear. HEART: S1, S2. ABDOMEN: Soft, bowel tones present. EXTREMITIES: Without cyanosis. ASSESSMENT: 1. Metastatic gastric CA with abdominal carcinomatosis. 2. Partial small-bowel obstruction, questionable peritonitis as per CT. 3. Anemia. 4. Hypertension. PLAN: Completed 2 weeks IV abx, barely tolerates clears, consider repeat CT abdomen DW pt/staff Problems: Consultation Date/Type/Reason Admit Date/Time Oct 16, 2016 at 08:57 Type of Consultation: ID Referring Provider: KOBY FRANCO MD Exam/Review of Systems Vital Signs Vitals Vital Signs Date Time Temp Pulse Resp B/P Pulse Ox O2 Delivery O2 Flow Rate FiO2 11/02/16 08:00 98.6 68 16 128/60 98 11/01/16 17:23 Room Air Intake and Output 11/01/16 11/01/16 11/02/16 15:00 23:00 07:00 Intake Total 1050 ml 2030 ml Output Total 1025 ml Balance 1050 ml 1005 ml Results Result Diagram: 11/02/16 0405 11/02/16 0405 Results 24 hrs Laboratory Tests Test 11/01/16 20:22 11/02/16 04:05 11/02/16 08:34 Bedside Glucose 93 100 White Blood Count 4.7 L Red Blood Count 3.07 #L Hemoglobin 8.4 #L Hematocrit 26.0 #L Mean Corpuscular Volume 84.7 Mean Corpuscular Hemoglobin 27.4 L Mean Corpuscular Hemoglobin Concent 32.3 Red Cell Distribution Width 16.3 H Platelet Count 156 Mean Platelet Volume 10.8 H Neutrophils % 78.6 H Lymphocytes % 17.4 Monocytes % 1.7 Eosinophils % 1.7 Basophils % 0.4 Nucleated Red Blood Cells % 0.0 Neutrophils # 3.7 Lymphocytes # 0.8 Monocytes # 0.1 L Eosinophils # 0.1 Basophils # 0.0 Nucleated Red Blood Cells # 0.0 Sodium Level 136 Potassium Level 5.3 H Chloride Level 104 Carbon Dioxide Level 29 Anion Gap 8 Blood Urea Nitrogen 21 H Creatinine 0.53 Glucose Level 101 Calcium Level 8.5 Phosphorus Level 2.9 Magnesium Level 1.8 Total Bilirubin 2.1 H Direct Bilirubin 1.20 #H Indirect Bilirubin 0.9 Aspartate Amino Transf (AST/SGOT) 57 H Alanine Aminotransferase (ALT/SGPT) 58 Alkaline Phosphatase 316 H Total Protein 5.7 L Albumin 2.6 L Medications Medications Current Medications Clonidine HCl (Catapres-Tts 1 Patch) 1 patch Q7D TRANSDERM Last administered on 10/31/16 05:55; Admin Dose 1 PATCH; Start 10/17/16 at 06:00 Ondansetron HCl 4 mg 4 mg Q4H PRN IV NAUSEA AND/OR VOMITING Last administered on 10/31/16 20:30; Admin Dose 4 MG; Start 10/17/16 at 19:00 Total Parenteral Nutrition (Tpn) 1,000 ml @ 40 mls/hr Q24H IV Last administered on 11/01/16 18:14; Admin Dose 40 MLS/HR; Start 10/19/16 at 18:30 Fentanyl (Duragesic 12 Mcg/Hr Patch) 1 patch Q72H TRANSDERM Last administered on 10/31/16 17:40; Admin Dose 1 PATCH; Start 10/19/16 at 18:30 Hydromorphone HCl 1 mg 1 mg Q4H PRN IV BREAKTHROUGH PAIN Last administered on 01:04; Admin Dose 1 MG; Start 10/19/16 at 23:00 Potassium Chloride/Dextrose/ Sod Cl (D5-NS + KCl 20 Meq) 1,000 ml @ 70 mls/hr [id number] IV Last administered on 11/02/16 00:13; Admin Dose 70 MLS/HR; Start at 18:00 Lorazepam (Ativan) 0.5 mg Q8H PRN IV anxiety, insomnia Last administered on 15:24; Admin Dose 0.5 MG; Start 10/21/16 at 18:00 Diagnostic Test (Pha) (Accu-Chek) 1 ea Q12 XX Last administered on 5/8/17at 09: 00; Admin Dose 1 EA; Start 10/22/16 at 09:00 Metoclopramide HCl (Reglan) 5 mg Q6 IV Last administered on 11/02/16 13:00; Admin Dose 5 MG; Start 10/23/16 at 00:00 Diphenhydramine HCl (Benadryl) 50 mg Q7D IV Last administered on 10/28/16 16:26 ; Admin Dose 50 MG; Start 10/28/16 at 09:00; Stop 11/11/16 at 09:01 Famotidine 20 mg 20 mg Q7D IV Last administered on 10/28/16 16:25; Admin Dose 20 MG; Start 10/28/16 at 09:00; Stop 11/11/16 at 09:01 Dexamethasone/ Dextrose (Decadron/D5W) 55 ml @ 252 mls/hr Q7D IV Last administered on 10/28/16 16:26; Admin Dose 252 MLS/HR; Start 10/28/16 at 09:00; Stop 11/11/16 at 09:14 Dexamethasone (Decadron) 10 mg Q7D IV Last administered on 10/27/16 22:05; Admin Dose 10 MG; Start 10/27/16 at 22:00; Stop 11/10/16 at 22:01 Dexamethasone 10 mg 10 mg Q7D IV Last administered on 10/28/16 03:56; Admin Dose 10 MG; Start 10/28/16 at 04:00; Stop 11/11/16 at 04:01 Paclitaxel 84 mg/ Sodium Chloride 264 ml @ 88.333 mls/ hr Q7D IV Last administered on 10/28/16 18:08; Admin Dose 88.333 MLS/HR; Start 10/28/16 at 16:30 ; Stop 11/11/16 at 19:30 Acetaminophen (Ofirmev 1000mg/ 100ml Iv) 65 ml @ 260 mls/hr Q14D IVPB Last administered on 10/29/16 12:22; Admin Dose 260 MLS/HR; Start 10/28/16 at 21:00; Stop 11/11/16 at 21:14 Diphenhydramine HCl 50 mg 50 mg Q14D IV Last administered on 10/29/16 12:22; Admin Dose 50 MG; Start 10/28/16 at 21:00; Stop 11/11/16 at 21:01 Ramucirumab/ Sodium Chloride (Cyramza/NS) 285.3 ml @ 250 mls/hr Q14D IV Last administered on 10/29/16 12:41; Admin Dose 250 MLS/HR; Start 10/28/16 at 22:00; Stop 11/11/16 at 23:09 Enalaprilat (Vasotec Iv) 0.625 mg Q4H PRN IV ELEVATED BLOOD PRESSURE Last administered on 11/01/16 16:18; Admin Dose 0.625 MG; Start 10/29/16 at 10:00 KJ HUYNH NP November 02, 2016 13:08
--- NOTE | 2016-11-02 15:51 | PN ---
Date/Time of Note Date/Time of Note DATE: 11/02/16 TIME: 15:49 Assessment/Plan VTE Prophylaxis VTE Prophylaxis Intervention: SCD's Lines/Catheters IV Catheter Type (from Nrs): portacath Urinary Cath still in place: No Assessment/Plan Assessment/Plan s/p first dose of chemotherapy last week sithout problems. Continue present measures. Subjective 24 Hr Interval Summary Free Text/Dictation Pt resting comfortably. NG still in place. Exam/Review of Systems Vital Signs Vitals Vital Signs Date Time Temp Pulse Resp B/P Pulse Ox O2 Delivery O2 Flow Rate FiO2 11/02/16 08:00 98.6 68 16 128/60 98 11/01/16 17:23 Room Air Intake and Output 11/01/16 11/01/16 11/02/16 15:00 23:00 07:00 Intake Total 1050 ml 2030 ml Output Total 1025 ml Balance 1050 ml 1005 ml Exam Constitutional: alert, oriented Head: normocephalic ENMT: other (NG in place) Respiratory: clear to auscultation Cardiovascular: regular rate and rhythm Results Result Diagram: 11/02/16 0405 11/02/16 0405 Results 24 hrs Laboratory Tests Test 11/01/16 20:22 11/02/16 04:05 11/02/16 08:34 Bedside Glucose 93 100 White Blood Count 4.7 L Red Blood Count 3.07 #L Hemoglobin 8.4 #L Hematocrit 26.0 #L Mean Corpuscular Volume 84.7 Mean Corpuscular Hemoglobin 27.4 L Mean Corpuscular Hemoglobin Concent 32.3 Red Cell Distribution Width 16.3 H Platelet Count 156 Mean Platelet Volume 10.8 H Neutrophils % 78.6 H Lymphocytes % 17.4 Monocytes % 1.7 Eosinophils % 1.7 Basophils % 0.4 Nucleated Red Blood Cells % 0.0 Neutrophils # 3.7 Lymphocytes # 0.8 Monocytes # 0.1 L Eosinophils # 0.1 Basophils # 0.0 Nucleated Red Blood Cells # 0.0 Sodium Level 136 Potassium Level 5.3 H Chloride Level 104 Carbon Dioxide Level 29 Anion Gap 8 Blood Urea Nitrogen 21 H Creatinine 0.53 Glucose Level 101 Calcium Level 8.5 Phosphorus Level 2.9 Magnesium Level 1.8 Total Bilirubin 2.1 H Direct Bilirubin 1.20 #H Indirect Bilirubin 0.9 Aspartate Amino Transf (AST/SGOT) 57 H Alanine Aminotransferase (ALT/SGPT) 58 Alkaline Phosphatase 316 H Total Protein 5.7 L Albumin 2.6 L Medications Medications Current Medications Clonidine HCl (Catapres-Tts 1 Patch) 1 patch Q7D TRANSDERM Last administered on 10/31/16 05:55; Admin Dose 1 PATCH; Start 10/17/16 at 06:00 Ondansetron HCl 4 mg 4 mg Q4H PRN IV NAUSEA AND/OR VOMITING Last administered on 10/31/16 20:30; Admin Dose 4 MG; Start 10/17/16 at 19:00 Total Parenteral Nutrition (Tpn) 1,000 ml @ 40 mls/hr Q24H IV Last administered on 11/01/16 18:14; Admin Dose 40 MLS/HR; Start 10/19/16 at 18:30 Fentanyl (Duragesic 12 Mcg/Hr Patch) 1 patch Q72H TRANSDERM Last administered on 10/31/16 17:40; Admin Dose 1 PATCH; Start 10/19/16 at 18:30 Hydromorphone HCl 1 mg 1 mg Q4H PRN IV BREAKTHROUGH PAIN Last administered on 01:04; Admin Dose 1 MG; Start 10/19/16 at 23:00 Potassium Chloride/Dextrose/ Sod Cl (D5-NS + KCl 20 Meq) 1,000 ml @ 70 mls/hr [id number] IV Last administered on 11/02/16 00:13; Admin Dose 70 MLS/HR; Start at 18:00 Lorazepam (Ativan) 0.5 mg Q8H PRN IV anxiety, insomnia Last administered on 15:24; Admin Dose 0.5 MG; Start 10/21/16 at 18:00 Diagnostic Test (Pha) (Accu-Chek) 1 ea Q12 XX Last administered on 11/02/16 09: 00; Admin Dose 1 EA; Start 10/22/16 at 09:00 Metoclopramide HCl (Reglan) 5 mg Q6 IV Last administered on 11/02/16 13:00; Admin Dose 5 MG; Start 10/23/16 at 00:00 Diphenhydramine HCl (Benadryl) 50 mg Q7D IV Last administered on 10/28/16 16:26 ; Admin Dose 50 MG; Start 10/28/16 at 09:00; Stop 11/11/16 at 09:01 Famotidine 20 mg 20 mg Q7D IV Last administered on 10/28/16 16:25; Admin Dose 20 MG; Start 10/28/16 at 09:00; Stop 11/11/16 at 09:01 Dexamethasone/ Dextrose (Decadron/D5W) 55 ml @ 252 mls/hr Q7D IV Last administered on 10/28/16 16:26; Admin Dose 252 MLS/HR; Start 10/28/16 at 09:00; Stop 11/11/16 at 09:14 Dexamethasone (Decadron) 10 mg Q7D IV Last administered on 10/27/16 22:05; Admin Dose 10 MG; Start 10/27/16 at 22:00; Stop 11/10/16 at 22:01 Dexamethasone 10 mg 10 mg Q7D IV Last administered on 10/28/16 03:56; Admin Dose 10 MG; Start 10/28/16 at 04:00; Stop 11/11/16 at 04:01 Paclitaxel 84 mg/ Sodium Chloride 264 ml @ 88.333 mls/ hr Q7D IV Last administered on 10/28/16 18:08; Admin Dose 88.333 MLS/HR; Start 10/28/16 at 16:30 ; Stop 11/11/16 at 19:30 Acetaminophen (Ofirmev 1000mg/ 100ml Iv) 65 ml @ 260 mls/hr Q14D IVPB Last administered on 10/29/16 12:22; Admin Dose 260 MLS/HR; Start 10/28/16 at 21:00; Stop 11/11/16 at 21:14 Diphenhydramine HCl 50 mg 50 mg Q14D IV Last administered on 10/29/16 12:22; Admin Dose 50 MG; Start 10/28/16 at 21:00; Stop 11/11/16 at 21:01 Ramucirumab/ Sodium Chloride (Cyramza/NS) 285.3 ml @ 250 mls/hr Q14D IV Last administered on 10/29/16 12:41; Admin Dose 250 MLS/HR; Start 10/28/16 at 22:00; Stop 11/11/16 at 23:09 Enalaprilat (Vasotec Iv) 0.625 mg Q4H PRN IV ELEVATED BLOOD PRESSURE Last administered on 11/01/16t 16:18; Admin Dose 0.625 MG; Start 10/29/16 at 10:00 CHACHA LEDESMA MD November 02, 2016 15:51
[2016-11-02] MEDS: TPN 1,000 ML IV SCH (18:05)
[2016-11-02 19:15] VITALS: BP 161/67; RESP 17
--- NOTE | 2016-11-02 23:35 | PN ---
DATE: 11/02/2016 SUBJECTIVE: The patient awake, alert, able to tolerate clear liquids, but still requires suctioning for the bloating several hours after eating. The patient's family reports that she was more yellow in her eyes and skin yesterday and has been improving since yesterday afternoon. The patient also received 1 unit of packed red blood cell transfusion yesterday for severe anemia. OBJECTIVE: VITAL SIGNS: Temperature 98.6, blood pressure 128/60, pulse of 68, respiration rate 16, O2 saturati on 98% on room air. HEENT: Pupils equally round, reactive to light. Minimally icteric sclerae. Oropharynx clear. CHEST: Lungs are clear to auscultation. CARDIAC: Regular rate and rhythm. Normal S1, S2 with a II/ systolic murmur. ABDOMEN: Active bowel sounds, soft, nondistended, nontender. EXTREMITIES: No clubbing, cyanosis, or edema. LABORATORY DATA: WBC 4.7, hemoglobin 8.4, hematocrit 26.0, platelet count 156,000. Sodium 136, pot assium 5.3, chloride 104, carbon dioxide 29, BUN 21, creatinine 0.53, glucose 101. Total bilirubin is 2.1, direct bilirubin is 1.2. AST is 57, ALT 58, alkaline phosphatase 316. Total protein 5.7, a lbumin 2.6. ASSESSMENT AND PLAN: 1. Metastatic gastric cancer. The patient tolerated last week's chemotherapy course well. She lilliam l be receiving another one on Wednesday. 2. Elevated liver enzymes. May be due to metastases to the liver. Continue to treat palliatively. 3. Nausea, vomiting, and abdominal pain. Well controlled on current medications and modality. Sin ce patient is still having intermittent bloating relieved with NG tube suction, will continue clear liquids for now. If she is able to tolerate clear liquids for more than 24 hours without requiring a NG tube suction to decompress, then I will try and advance her diet to full liquids. For now, lilliam burgos continue TPN. Will probably need to increase amino acid content and reduce the potassium in the I V fluid, but first I will recheck potassium and see if this might be a lab error since her potassium yesterday was completely normal. Dictated By: KOBY FRANCO MD DP/OH Conf#: [id number] [facility]#: [id number]
[2016-11-03] MEDS: METOCLOPRAMIDE 10 MG INJ IV SCH ×3 (04:56→18:31)
[2016-11-03 05:23] LABS: ADD SCAN DIFF NO
[2016-11-03 05:27] LABS: BASOPHILS % 0.5 % (0.0-2.0); EOSINOPHILS # 0.1 10^3/ul (0.0-0.5); EOSINOPHILS % 2.6 % (0.0-7.0); HEMATOCRIT 28.8 % (37.0-47.0); HEMOGLOBIN 8.9 g/dl (12.0-16.0); LYMPHOCYTES # 0.7 10^3/ul (0.8-2.9); LYMPHOCYTES % 18.3 % (15.0-51.0); MEAN CORPUSCULAR HEMOGLOBIN 26.6 pg (29.0-33.0); MEAN CORPUSCULAR HGB CONC 30.9 g/dl (32.0-37.0); MEAN PLATELET VOLUME 11.3 fl (7.4-10.4); MONOCYTE # 0.1 10^3/ul (0.3-0.9); MONOCYTES % 2.1 % (0.0-11.0); NEUTROPHILS % 76.2 % (39.0-77.0); PLATELET COUNT 172 10^3/UL (140-415); RED BLOOD COUNT 3.35 10^6/ul (4.20-5.40); WHITE BLOOD COUNT 3.9 10^3/ul (4.8-10.8)
[2016-11-03 06:10] LABS: CALCIUM 8.7 mg/dl (8.4-10.2); CREATININE 0.56 mg/dl (0.44-1.00); MAGNESIUM 1.9 mg/dl (1.7-2.5); PHOSPHORUS 3.1 mg/dl (2.5-4.9); POTASSIUM 5.1 mmol/L (3.5-5.1)
[2016-11-03 07:35] VITALS: BP 136/63; RESP 18
--- NOTE | 2016-11-03 08:57 | PN ---
DATE: 11/01/2016 SUBJECTIVE: The patient continues to get filled easily, has mild abdominal pain, less nausea. OBJECTIVE: VITAL SIGNS: Temperature 98.1, pulse 62, respirations 16, blood pressure 152/70, oxygen saturation 98% on room air. IMPRESSION: 1. Metastatic gastric cancer. The patient is status post chemotherapy with decreased counts. The patient to get another round of chemotherapy later this week. Continue to follow orders per oncolog y. 2. Anemia secondary to chemotherapy. The patient is receiving blood for this. We will follow. 3. Hypertension remains stable. Continue with medications. Following blood pressure. Dictated By: PATTIE STODDARD MD SR/NTS Conf#: [id number] DID#: [id number]
[2016-11-03] MEDS: ACCU-CHEK XX SCH ×2 (09:52→21:48)
[2016-11-03] MEDS: D5-NS + KCL 20 MEQ 1,000 ML IV SCH (12:08)
--- NOTE | 2016-11-03 13:31 | CONS ---
Date/Time of Note Date/Time of Note DATE: 11/03/16 TIME: 13:30 Assessment/Plan Assessment/Plan Chief Complaint/Hosp Course SUBJECTIVE: No events, alert, feels better, tolerates clears, no fevers, nad PHYSICAL EXAMINATION: GENERAL: This is a fragile, elderly woman who is alert, in no distress. HEENT: Head atraumatic, normocephalic. Sclerae anicteric. Buccal mucosa pink. NECK: Supple, trachea midline. CHEST: Rise symmetrical. Breath sounds clear. HEART: S1, S2. ABDOMEN: Soft, bowel tones present. EXTREMITIES: Without cyanosis. ASSESSMENT: 1. Metastatic gastric CA with abdominal carcinomatosis. 2. Partial small-bowel obstruction, questionable peritonitis as per CT. 3. Anemia. 4. Hypertension. PLAN: Stable, completed 2 weeks IV abx, continue present care, oncology rec-s, james cx prn DW pt/staff Problems: Consultation Date/Type/Reason Admit Date/Time Oct 16, 2016 at 08:57 Type of Consultation: ID Referring Provider: KOBY FRANCO MD Exam/Review of Systems Vital Signs Vitals Vital Signs Date Time Temp Pulse Resp B/P Pulse Ox O2 Delivery O2 Flow Rate FiO2 11/03/16 07:35 97.9 71 18 136/63 98 11/01/16 17:23 Room Air Intake and Output 11/02/16 11/02/16 11/03/16 15:00 23:00 07:00 Intake Total 670 ml 1190 ml Output Total 1020 ml Balance 670 ml 170 ml Results Result Diagram: 11/03/16 0438 11/03/16 0420 Results 24 hrs Laboratory Tests Test 11/02/16 20:12 11/03/16 04:20 11/03/16 04:38 11/03/16 09:29 Bedside Glucose 101 112 Sodium Level 134 L Potassium Level 5.1 Chloride Level 102 Carbon Dioxide Level 28 Anion Gap 9 Blood Urea Nitrogen 21 H Creatinine 0.56 Glucose Level 101 Calcium Level 8.7 Phosphorus Level 3.1 Magnesium Level 1.9 White Blood Count 3.9 L Red Blood Count 3.35 L Hemoglobin 8.9 L Hematocrit 28.8 L Mean Corpuscular Volume 86.0 Mean Corpuscular Hemoglobin 26.6 L Mean Corpuscular Hemoglobin Concent 30.9 L Red Cell Distribution Width 16.0 H Platelet Count 172 Mean Platelet Volume 11.3 H Neutrophils % 76.2 Lymphocytes % 18.3 Monocytes % 2.1 Eosinophils % 2.6 Basophils % 0.5 Nucleated Red Blood Cells % 0.0 Neutrophils # 3.0 Lymphocytes # 0.7 L Monocytes # 0.1 L Eosinophils # 0.1 Basophils # 0.0 Nucleated Red Blood Cells # 0.0 Medications Medications Current Medications Clonidine HCl (Catapres-Tts 1 Patch) 1 patch Q7D TRANSDERM Last administered on 10/31/16 05:55; Admin Dose 1 PATCH; Start 10/17/16 at 06:00 Ondansetron HCl 4 mg 4 mg Q4H PRN IV NAUSEA AND/OR VOMITING Last administered on 10/31/16 20:30; Admin Dose 4 MG; Start 10/17/16 at 19:00 Total Parenteral Nutrition (Tpn) 1,000 ml @ 40 mls/hr Q24H IV Last administered on 11/02/16 18:05; Admin Dose 40 MLS/HR; Start 10/19/16 at 18:30 Fentanyl (Duragesic 12 Mcg/Hr Patch) 1 patch Q72H TRANSDERM Last administered on 10/31/16 17:40; Admin Dose 1 PATCH; Start 10/19/16 at 18:30 Hydromorphone HCl 1 mg 1 mg Q4H PRN IV BREAKTHROUGH PAIN Last administered on 01:04; Admin Dose 1 MG; Start 10/19/16 at 23:00 Potassium Chloride/Dextrose/ Sod Cl (D5-NS + KCl 20 Meq) 1,000 ml @ 70 mls/hr [id number] IV Last administered on 11/03/16 12:08; Admin Dose 70 MLS/HR; Start at 18:00 Lorazepam (Ativan) 0.5 mg Q8H PRN IV anxiety, insomnia Last administered on 15:24; Admin Dose 0.5 MG; Start 10/21/16 at 18:00 Diagnostic Test (Pha) (Accu-Chek) 1 ea Q12 XX Last administered on 11/03/16 09: 52; Admin Dose 1 EA; Start 10/22/16 at 09:00 Metoclopramide HCl (Reglan) 5 mg Q6 IV Last administered on 11/03/16 12:08; Admin Dose 5 MG; Start 10/23/16 at 00:00 Diphenhydramine HCl (Benadryl) 50 mg Q7D IV Last administered on 10/28/16 16:26 ; Admin Dose 50 MG; Start 10/28/16 at 09:00; Stop 11/11/16 at 09:01 Famotidine 20 mg 20 mg Q7D IV Last administered on 10/28/16 16:25; Admin Dose 20 MG; Start 10/28/16 at 09:00; Stop 11/11/16 at 09:01 Dexamethasone/ Dextrose (Decadron/D5W) 55 ml @ 252 mls/hr Q7D IV Last administered on 10/28/16 16:26; Admin Dose 252 MLS/HR; Start 10/28/16 at 09:00; Stop 11/11/16 at 09:14 Dexamethasone (Decadron) 10 mg Q7D IV Last administered on 10/27/16 22:05; Admin Dose 10 MG; Start 10/27/16 at 22:00; Stop 11/10/16 at 22:01 Dexamethasone 10 mg 10 mg Q7D IV Last administered on 10/28/16 03:56; Admin Dose 10 MG; Start 10/28/16 at 04:00; Stop 11/11/16 at 04:01 Paclitaxel 84 mg/ Sodium Chloride 264 ml @ 88.333 mls/ hr Q7D IV Last administered on 10/28/16 18:08; Admin Dose 88.333 MLS/HR; Start 10/28/16 at 16:30 ; Stop 11/11/16 at 19:30 Acetaminophen (Ofirmev 1000mg/ 100ml Iv) 65 ml @ 260 mls/hr Q14D IVPB Last administered on 10/29/16 12:22; Admin Dose 260 MLS/HR; Start 10/28/16 at 21:00; Stop 11/11/16 at 21:14 Diphenhydramine HCl 50 mg 50 mg Q14D IV Last administered on 10/29/16 12:22; Admin Dose 50 MG; Start 10/28/16 at 21:00; Stop 11/11/16 at 21:01 Ramucirumab/ Sodium Chloride (Cyramza/NS) 285.3 ml @ 250 mls/hr Q14D IV Last administered on 10/29/16 12:41; Admin Dose 250 MLS/HR; Start 10/28/16 at 22:00; Stop 11/11/16 at 23:09 Enalaprilat (Vasotec Iv) 0.625 mg Q4H PRN IV ELEVATED BLOOD PRESSURE Last administered on 11/01/16 16:18; Admin Dose 0.625 MG; Start 10/29/16 at 10:00 KJ HUYNH NP November 03, 2016 13:31
--- NOTE | 2016-11-03 16:43 | PN ---
Date/Time of Note Date/Time of Note DATE: 11/03/16 TIME: 16:40 Assessment/Plan VTE Prophylaxis VTE Prophylaxis Intervention: anti-embolic stocking, other (per primary) Lines/Catheters IV [facility] Type (from [facility]): PORT Urinary Cath still in place: No Assessment/Plan Assessment/Plan day 8 chemotherapy due Wednesday. No new problems now. Continue TPN and other plans as ordered. Subjective 24 Hr Interval Summary Free Text/Dictation Pt is in chair and is stable and alert. No new complaints. Exam/Review of Systems Vital Signs Vitals Vital Signs Date Time Temp Pulse Resp B/P Pulse Ox O2 Delivery O2 Flow Rate FiO2 11/03/16 07:35 97.9 71 18 136/63 98 11/01/16 17:23 Room Air Intake and Output 11/02/16 11/02/16 11/03/16 15:00 23:00 07:00 Intake Total 670 ml 1190 ml Output Total 1020 ml Balance 670 ml 170 ml Exam Constitutional: alert, oriented Head: normocephalic ENMT: other (NG tube in place) Neck: supple Respiratory: clear to auscultation Cardiovascular: regular rate and rhythm Results Result Diagram: 11/03/16 0438 11/03/16 0420 Results 24 hrs Laboratory Tests Test 11/02/16 20:12 11/03/16 04:20 11/03/16 04:38 11/03/16 09:29 Bedside Glucose 101 112 Sodium Level 134 L Potassium Level 5.1 Chloride Level 102 Carbon Dioxide Level 28 Anion Gap 9 Blood Urea Nitrogen 21 H Creatinine 0.56 Glucose Level 101 Calcium Level 8.7 Phosphorus Level 3.1 Magnesium Level 1.9 White Blood Count 3.9 L Red Blood Count 3.35 L Hemoglobin 8.9 L Hematocrit 28.8 L Mean Corpuscular Volume 86.0 Mean Corpuscular Hemoglobin 26.6 L Mean Corpuscular Hemoglobin Concent 30.9 L Red Cell Distribution Width 16.0 H Platelet Count 172 Mean Platelet Volume 11.3 H Neutrophils % 76.2 Lymphocytes % 18.3 Monocytes % 2.1 Eosinophils % 2.6 Basophils % 0.5 Nucleated Red Blood Cells % 0.0 Neutrophils # 3.0 Lymphocytes # 0.7 L Monocytes # 0.1 L Eosinophils # 0.1 Basophils # 0.0 Nucleated Red Blood Cells # 0.0 Medications Medications Current Medications Clonidine HCl (Catapres-Tts 1 Patch) 1 patch Q7D TRANSDERM Last administered on 10/31/16 05:55; Admin Dose 1 PATCH; Start 10/17/16 at 06:00 Ondansetron HCl 4 mg 4 mg Q4H PRN IV NAUSEA AND/OR VOMITING Last administered on 10/31/16 20:30; Admin Dose 4 MG; Start 10/17/16 at 19:00 Total Parenteral Nutrition (Tpn) 1,000 ml @ 40 mls/hr Q24H IV Last administered on 11/02/16 18:05; Admin Dose 40 MLS/HR; Start 10/19/16 at 18:30 Fentanyl (Duragesic 12 Mcg/Hr Patch) 1 patch Q72H TRANSDERM Last administered on 10/31/16 17:40; Admin Dose 1 PATCH; Start 10/19/16 at 18:30 Hydromorphone HCl 1 mg 1 mg Q4H PRN IV BREAKTHROUGH PAIN Last administered on 01:04; Admin Dose 1 MG; Start 10/19/16 at 23:00 Potassium Chloride/Dextrose/ Sod Cl (D5-NS + KCl 20 Meq) 1,000 ml @ 70 mls/hr [id number] IV Last administered on 11/03/16 12:08; Admin Dose 70 MLS/HR; Start at 18:00 Lorazepam (Ativan) 0.5 mg Q8H PRN IV anxiety, insomnia Last administered on 15:24; Admin Dose 0.5 MG; Start 10/21/16 at 18:00 Diagnostic Test (Pha) (Accu-Chek) 1 ea Q12 XX Last administered on 11/03/16 09: 52; Admin Dose 1 EA; Start 10/22/16 at 09:00 Metoclopramide HCl (Reglan) 5 mg Q6 IV Last administered on 11/03/16 12:08; Admin Dose 5 MG; Start 10/23/16 at 00:00 Diphenhydramine HCl (Benadryl) 50 mg Q7D IV Last administered on 10/28/16 16:26 ; Admin Dose 50 MG; Start 10/28/16 at 09:00; Stop 11/11/16 at 09:01 Famotidine 20 mg 20 mg Q7D IV Last administered on 10/28/16 16:25; Admin Dose 20 MG; Start 10/28/16 at 09:00; Stop 11/11/16 at 09:01 Dexamethasone/ Dextrose (Decadron/D5W) 55 ml @ 252 mls/hr Q7D IV Last administered on 10/28/16 16:26; Admin Dose 252 MLS/HR; Start 10/28/16 at 09:00; Stop 11/11/16 at 09:14 Dexamethasone (Decadron) 10 mg Q7D IV Last administered on 10/27/16 22:05; Admin Dose 10 MG; Start 10/27/16 at 22:00; Stop 11/10/16 at 22:01 Dexamethasone 10 mg 10 mg Q7D IV Last administered on 10/28/16 03:56; Admin Dose 10 MG; Start 10/28/16 at 04:00; Stop 11/11/16 at 04:01 Paclitaxel 84 mg/ Sodium Chloride 264 ml @ 88.333 mls/ hr Q7D IV Last administered on 10/28/16 18:08; Admin Dose 88.333 MLS/HR; Start 10/28/16 at 16:30 ; Stop 11/11/16 at 19:30 Acetaminophen (Ofirmev 1000mg/ 100ml Iv) 65 ml @ 260 mls/hr Q14D IVPB Last administered on 10/29/16 12:22; Admin Dose 260 MLS/HR; Start 10/28/16 at 21:00; Stop 11/11/16 at 21:14 Diphenhydramine HCl 50 mg 50 mg Q14D IV Last administered on 10/29/16 12:22; Admin Dose 50 MG; Start 10/28/16 at 21:00; Stop 11/11/16 at 21:01 Ramucirumab/ Sodium Chloride (Cyramza/NS) 285.3 ml @ 250 mls/hr Q14D IV Last administered on 10/29/16 12:41; Admin Dose 250 MLS/HR; Start 10/28/16 at 22:00; Stop 11/11/16 at 23:09 Enalaprilat (Vasotec Iv) 0.625 mg Q4H PRN IV ELEVATED BLOOD PRESSURE Last administered on 11/01/16 16:18; Admin Dose 0.625 MG; Start 10/29/16 at 10:00 CHACHA LEDESMA MD November 03, 2016 16:43
--- NOTE | 2016-11-03 18:02 | PN ---
DATE: 11/03/2016 SUBJECTIVE: Patient is awake, alert. Reports that she had transient abdominal bloating after she a te today, but she was able to tolerate it and did not require NG tube suction since before breakfast today. VITAL SIGNS: Temperature 97.9, blood pressure 136/63, pulse of 71, respiration rate 18, O2 saturati on 98% on room air. HEENT: Minimally icteric sclerae. Oropharynx clear. CHEST: Lungs are clear to auscultation. CARDIAC: A II/ heart murmur. ABDOMEN: Active bowel sounds, no localizing tenderness. EXTREMITIES: No clubbing, cyanosis, or edema. LABORATORY DATA: WBC 3.9, hemoglobin 8.9, hematocrit 28.8, platelet count 172,000. Sodium 134, pot assium 5.1, chloride 102, carbon dioxide 28, BUN 21, creatinine 0.56, glucose 101. ASSESSMENT AND PLAN: 1. Nausea, vomiting. The patient appears to be tolerating nasogastric tube clamping well. Continu e to monitor and see whether she can tolerate this for more than 24 hours. Continue supportive [place] tment with Reglan IV q.6h. and total parenteral nutrition. 2. Elevated potassium yesterday, may be due to the Vasotec IV that was given the night prior for el evated blood pressure. Since patient has been having mildly increased blood pressure for the past w [place], we will go ahead and increase her Catapres from 0.1 to 0.2 transdermal patch. 3. Hypertension. 4. Gastric cancer metastatic intraabdominally, including liver. The patient is due for her second weekly dose of chemotherapy tomorrow. Continue supportive treatment for now. Dictated By: KOBY FRANCO MD DP/OH Conf#: [id number] DID#: [id number]
[2016-11-03] MEDS: TPN 1,000 ML IV SCH (18:32)
[2016-11-03] MEDS: CLONIDINE 0.2 MG/24 HR PATCH TRANSDERM SCH (18:33)
[2016-11-03] MEDS: FENTAnyl PATCH 12 MCG/HR TRANSDERM SCH (18:49)
[2016-11-03 19:15] VITALS: RESP 18
[2016-11-03] MEDS: DEXAMETHASONE 10 MG/ML 1 ML INJ IV SCH (21:48)
[2016-11-04] VITALS (14 sets, daily range): BP systolic 130–165; BP diastolic 61–74; PULSE 45–67; RESP 16–19
[2016-11-04] MEDS: METOCLOPRAMIDE 10 MG INJ IV SCH ×4 (00:17→18:08)
[2016-11-04] MEDS: DEXAMETHASONE 10 MG/ML 1 ML INJ IV SCH (04:32)
[2016-11-04] MEDS: D5-NS + KCL 20 MEQ 1,000 ML IV SCH ×2 (05:35→15:30)
[2016-11-04 05:36] LABS: POTASSIUM 4.9 mmol/L (3.5-5.1)
[2016-11-04 05:38] LABS: ALBUMIN 2.7 g/dl (3.3-4.9)
[2016-11-04 05:39] LABS: CREATININE 0.47 mg/dl (0.44-1.00)
[2016-11-04 05:40] LABS: BILIRUBIN,DIRECT 0.1 mg/dl (0.00-0.20); BILIRUBIN,INDIRECT 0.7 mg/dl (0-1.1); BILIRUBIN,TOTAL 0.8 mg/dl (0.2-1.3); CALCIUM 8.4 mg/dl (8.4-10.2); MAGNESIUM 1.7 mg/dl (1.7-2.5)
[2016-11-04 05:41] LABS: TOTAL PROTEIN 6.3 g/dl (6.1-8.1)
--- NOTE | 2016-11-04 09:08 | PN ---
DATE: 11/04/2016 MEDICAL ONCOLOGY PROGRESS NOTE HISTORY OF PRESENT ILLNESS: The patient states that she has no new complaints. She is not complain ing of nausea or vomiting. Does complain of "bloating" when tries oral intake of liquids. No abdom inal pain or cramping. The patient does not have mouth discomfort or dysphagia. OBJECTIVE: VITAL SIGNS: Temperature 98.1, pulse 67 per minute and regular, respirations 18, blood pressure is 136/63. Pulse oximetry is 99% on room air. SKIN: Pale. No ecchymosis, no petechiae or rashes. HEENT: No mucosal lesions. No scleral icterus. There is an NG tube in place. It is not connected to suction. NECK: Supple. No jugular venous distention or thyroid enlargement. CHEST: Clear to auscultation and percussion. There are no rhonchi, wheezes, rales, or rubs. There is a Port-A-Cath in place in the right anterior chest wall which has been accessed. HEART: Regular sinus rhythm, no S3, S4, or murmurs. ABDOMEN: Flat. There is a stoma in the left mid upper abdomen which is draining dark liquid. Ther e is a firmness superior and lateral to the stoma. No distinct mass. There is no succussion splash . EXTREMITIES: No clubbing, edema, or cyanosis. No palpable cords or Homans sign. NEUROLOGIC: Normal except for weakness. LABORATORY DATA: White count on November 03 is 3900 with an absolute neutrophil count of 3000, hemoglob in 8.9, hematocrit 28.8, and platelet count 172,000. Sodium 137, potassium 4.9, creatinine 0.47, BU N 19, total bilirubin 0.8, AST 53, ALT 53, alkaline phosphatase 268. ASSESSMENT: 1. Gastric carcinoma with intraabdominal carcinomatosis. 2. Probable small bowel obstruction secondary to #1. IMPRESSION PLAN: The patient is to receive paclitaxel today. This is day 8 therapy. Last week the patient did receive paclitaxel and Cyramza. She did tolerate this well. The previously noted increasing bilirubin and alkaline phosphatase have improved. Dictated By: RADHA RODRIGUES MD, SR/NTS Conf#: [id number] DID#: [id number]
[2016-11-04] MEDS: ACCU-CHEK XX SCH ×2 (09:30→21:00)
--- NOTE | 2016-11-04 13:12 | CONS ---
Date/Time of Note Date/Time of Note DATE: 11/04/16 TIME: 13:11 Assessment/Plan Assessment/Plan Chief Complaint/Hosp Course SUBJECTIVE: No events, alert, feels better, no fevers, no n/v/d PHYSICAL EXAMINATION: GENERAL: This is a fragile, elderly woman who is alert, in no distress. HEENT: Head atraumatic, normocephalic. Sclerae anicteric. Buccal mucosa pink. NECK: Supple, trachea midline. CHEST: Rise symmetrical. Breath sounds clear. HEART: S1, S2. ABDOMEN: Soft, bowel tones present. EXTREMITIES: Without cyanosis. ASSESSMENT: 1. Metastatic gastric CA with abdominal carcinomatosis. 2. Partial small-bowel obstruction, questionable peritonitis as per CT. 3. Anemia. 4. Hypertension. PLAN: Remains stable, off abx, continue present care, oncology rec-s, james cx prn DW pt/staff Problems: Consultation Date/Type/Reason Admit Date/Time Oct 16, 2016 at 08:57 Type of Consultation: ID Referring Provider: KOBY FRANCO MD Exam/Review of Systems Vital Signs Vitals Vital Signs Date Time Temp Pulse Resp B/P Pulse Ox O2 Delivery O2 Flow Rate FiO2 11/04/16 08:25 97.0 56 19 139/61 100 11/01/16 17:23 Room Air Intake and Output 11/03/16 11/03/16 11/04/16 15:00 23:00 07:00 Intake Total 630 ml 2550 ml 1850 ml Output Total 900 ml 600 ml Balance 630 ml 1650 ml 1250 ml Results Result Diagram: 11/03/16 0438 11/04/16 0450 Results 24 hrs Laboratory Tests Test 11/03/16 21:46 11/04/16 04:50 11/04/16 11:47 Bedside Glucose 107 140 Sodium Level 137 Potassium Level 4.9 Chloride Level 104 Carbon Dioxide Level 25 Anion Gap 13 Blood Urea Nitrogen 19 Creatinine 0.47 Glucose Level 170 Calcium Level 8.4 Phosphorus Level 3.0 Magnesium Level 1.7 Total Bilirubin 0.8 Direct Bilirubin 0.10 Indirect Bilirubin 0.7 Aspartate Amino Transf (AST/SGOT) 53 H Alanine Aminotransferase (ALT/SGPT) 53 Alkaline Phosphatase 268 H Total Protein 6.3 Albumin 2.7 L Prealbumin 13.2 L Medications Medications Current Medications Ondansetron HCl 4 mg 4 mg Q4H PRN IV NAUSEA AND/OR VOMITING Last administered on 10/31/16 20:30; Admin Dose 4 MG; Start 10/17/16 at 19:00 Total Parenteral Nutrition (Tpn) 1,000 ml @ 40 mls/hr Q24H IV Last administered on 11/03/16 18:32; Admin Dose 40 MLS/HR; Start 10/19/16 at 18:30 Fentanyl (Duragesic 12 Mcg/Hr Patch) 1 patch Q72H TRANSDERM Last administered on 11/03/16 18:49; Admin Dose 1 PATCH; Start 10/19/16 at 18:30 Hydromorphone HCl 1 mg 1 mg Q4H PRN IV BREAKTHROUGH PAIN Last administered on 01:04; Admin Dose 1 MG; Start 10/19/16 at 23:00 Potassium Chloride/Dextrose/ Sod Cl (D5-NS + KCl 20 Meq) 1,000 ml @ 70 mls/hr [id number] IV Last administered on 11/04/16 05:35; Admin Dose 70 MLS/HR; Start at 18:00 Lorazepam (Ativan) 0.5 mg Q8H PRN IV anxiety, insomnia Last administered on 15:24; Admin Dose 0.5 MG; Start 10/21/16 at 18:00 Diagnostic Test (Pha) (Accu-Chek) 1 ea Q12 XX Last administered on 11/04/16 09 :30; Admin Dose 1 EA; Start 10/22/16 at 09:00 Metoclopramide HCl (Reglan) 5 mg Q6 IV Last administered on 11/04/16 05:36; Admin Dose 5 MG; Start 10/23/16 at 00:00 Diphenhydramine HCl (Benadryl) 50 mg Q7D IV Last administered on 10/28/16 16:26 ; Admin Dose 50 MG; Start 10/28/16 at 09:00; Stop 11/11/16 at 09:01 Famotidine 20 mg 20 mg Q7D IV Last administered on 10/28/16 16:25; Admin Dose 20 MG; Start 10/28/16 at 09:00; Stop 11/11/16 at 09:01 Dexamethasone/ Dextrose (Decadron/D5W) 55 ml @ 252 mls/hr Q7D IV Last administered on 10/28/16 16:26; Admin Dose 252 MLS/HR; Start 10/28/16 at 09:00; Stop 11/11/16 at 09:14 Dexamethasone (Decadron) 10 mg Q7D IV Last administered on 11/03/16 21:48; Admin Dose 10 MG; Start 10/27/16 at 22:00; Stop 11/10/16 at 22:01 Dexamethasone 10 mg 10 mg Q7D IV Last administered on 11/04/16 04:32; Admin Dose 10 MG; Start 10/28/16 at 04:00; Stop 11/11/16 at 04:01 Paclitaxel 84 mg/ Sodium Chloride 264 ml @ 88.333 mls/ hr Q7D IV Last administered on 10/28/16 18:08; Admin Dose 88.333 MLS/HR; Start 10/28/16 at 16:30 ; Stop 11/11/16 at 19:30 Acetaminophen (Ofirmev 1000mg/ 100ml Iv) 65 ml @ 260 mls/hr Q14D IVPB Last administered on 10/29/16 12:22; Admin Dose 260 MLS/HR; Start 10/28/16 at 21:00; Stop 11/11/16 at 21:14 Diphenhydramine HCl 50 mg 50 mg Q14D IV Last administered on 10/29/16 12:22; Admin Dose 50 MG; Start 10/28/16 at 21:00; Stop 11/11/16 at 21:01 Ramucirumab/ Sodium Chloride (Cyramza/NS) 285.3 ml @ 250 mls/hr Q14D IV Last administered on 10/29/16 12:41; Admin Dose 250 MLS/HR; Start 10/28/16 at 22:00; Stop 11/11/16 at 23:09 Enalaprilat (Vasotec Iv) 0.625 mg Q4H PRN IV ELEVATED BLOOD PRESSURE Last administered on 11/01/16 16:18; Admin Dose 0.625 MG; Start 10/29/16 at 10:00 Clonidine HCl (Catapres-Tts 2 Patch) 1 patch Q7D TRANSDERM Last administered on 11/03/16 18:33; Admin Dose 1 PATCH; Start 11/03/16 at 18:30 KJ HUYNH NP November 04, 2016 13:12
[2016-11-04] MEDS: DEXAMETHASONE 4 MG/ML 20 MG in DEXTROSE 5% 50 ML IV SCH (16:38)
[2016-11-04] MEDS: FAMOTIDINE 20 MG INJ IV SCH (16:41)
[2016-11-04] MEDS: DIPHENHYDRAMINE 50 MG INJ IV SCH (16:41)
[2016-11-04] MEDS: PACLITAXEL IV SCH (17:21)
[2016-11-04] MEDS: SOD CHLORIDE 0.9% IV SCH (17:21)
--- NOTE | 2016-11-04 18:04 | PN ---
DATE: 11/04/2016 SUBJECTIVE: The patient had some abdominal bloating last night requiring NG tube suction, but has been doing well today without nausea, vomiting or abdominal pain. She is receiving the second dose of Taxol today. OBJECTIVE: VITAL SIGNS: Temperature 97.8 , blood pressure 112/76, pulse 76. HEENT: anicteric sclera, PERRL, NG tube clamped LUNGS: clear anteriorly HEART: regular rate and rhythm, 2/6 systolic murmur. ABD: non-tender, non-distended EXTREMITIES: no edema. LABORATORY DATA: Sodium 137, potassium 4.9, chloride 104, carbon dioxide 25, BUN 19, creatinine 0.47, glucose 170. The patient's total bilirubin today is 0.8 and direct bilirubin is 0.1, AST is 53, ALT 53, alkaline phosphatase 268, total protein is 6.3 and albumin is 2.7. Her prealbumin is 13.2, which is remarkably improved from 6.7 last week. ASSESSMENT AND PLAN: 1. Metastatic gastric carcinoma. Continue chemotherapy as planned by oncologist. 2. Nausea, vomiting and partial small-bowel obstruction. 3. Continue NG tube suction only as needed and continue clear liquid diet for now with total parenteral nutrition, which seems to be helping her nutritional state. 4. Elevated liver enzymes. Appears to be improving along with her abdominal symptoms and continue current supportive treatment. 5. Hypertension. Blood pressure appears to be better controlled on Catapres 2 patch. Continue to monitor. Dictated By: KOBY FRANCO MD DP/NTS Conf#: [id number] DID#: [id number] MTDD
[2016-11-05] VITALS: BP 131/63; PULSE 60; RESP 18
[2016-11-05] MEDS: TPN 1,000 ML IV SCH ×2 (00:12→18:30)
[2016-11-05] MEDS: METOCLOPRAMIDE 10 MG INJ IV SCH ×4 (00:17→17:54)
[2016-11-05 05:18] VITALS: BP 142/60; PULSE 52; RESP 18
[2016-11-05 05:46] LABS: CALCIUM 8.6 mg/dl (8.4-10.2); CREATININE 0.55 mg/dl (0.44-1.00); MAGNESIUM 1.8 mg/dl (1.7-2.5); PHOSPHORUS 3.4 mg/dl (2.5-4.9)
[2016-11-05] MEDS: D5-NS + KCL 20 MEQ 1,000 ML IV SCH ×2 (05:48→12:40)
[2016-11-05 07:34] VITALS: BP 149/66; RESP 19
[2016-11-05] MEDS: ACCU-CHEK XX SCH ×2 (08:17→20:19)
[2016-11-05 12:07] VITALS: BP 154/69; PULSE 53; RESP 20
--- NOTE | 2016-11-05 13:05 | PN ---
Date/Time of Note Date/Time of Note DATE: 11/05/16 TIME: 13:03 Assessment/Plan VTE Prophylaxis VTE Prophylaxis Intervention: SCD's Lines/Catheters IV Catheter Type (from Nrs): PORTACATH Urinary Cath still in place: No Assessment/Plan Assessment/Plan Chemotherapy continued without problem. Continue TPN and present care. Subjective 24 Hr Interval Summary Free Text/Dictation Pt tolerated chemo yesterday without problems. Exam/Review of Systems Vital Signs Vitals Vital Signs Date Time Temp Pulse Resp B/P Pulse Ox O2 Delivery O2 Flow Rate FiO2 11/05/16 12:07 97.9 53 20 154/69 99 Room Air Intake and Output 11/04/16 11/04/16 11/05/16 15:00 23:00 07:00 Intake Total 1200.5 ml 1948.5 ml Output Total 1300 ml Balance 1200.5 ml 648.5 ml Exam Constitutional: alert, oriented Head: normocephalic ENMT: other (NG in place) Respiratory: clear to auscultation Cardiovascular: regular rate and rhythm Gastrointestinal: distended, soft Results Result Diagram: 11/03/16 0438 11/05/16 0440 Results 24 hrs Laboratory Tests Test 11/04/16 20:37 11/05/16 04:40 11/05/16 07:51 Bedside Glucose 107 111 Sodium Level 136 Potassium Level 5.0 Chloride Level 107 Carbon Dioxide Level 26 Anion Gap 8 Blood Urea Nitrogen 20 Creatinine 0.55 Glucose Level 146 Calcium Level 8.6 Phosphorus Level 3.4 Magnesium Level 1.8 Medications Medications Current Medications Ondansetron HCl 4 mg 4 mg Q4H PRN IV NAUSEA AND/OR VOMITING Last administered on 10/31/16 20:30; Admin Dose 4 MG; Start 10/17/16 at 19:00 Total Parenteral Nutrition (Tpn) 1,000 ml @ 40 mls/hr Q24H IV Last administered on 11/05/16 00:12; Admin Dose 40 MLS/HR; Start 10/19/16 at 18:30 Fentanyl (Duragesic 12 Mcg/Hr Patch) 1 patch Q72H TRANSDERM Last administered on 11/03/16 18:49; Admin Dose 1 PATCH; Start 10/19/16 at 18:30 Hydromorphone HCl 1 mg 1 mg Q4H PRN IV BREAKTHROUGH PAIN Last administered on 01:04; Admin Dose 1 MG; Start 10/19/16 at 23:00 Potassium Chloride/Dextrose/ Sod Cl (D5-NS + KCl 20 Meq) 1,000 ml @ 70 mls/hr [id number] IV Last administered on 11/05/16 12:40; Admin Dose 70 MLS/HR; Start at 18:00 Lorazepam (Ativan) 0.5 mg Q8H PRN IV anxiety, insomnia Last administered on 15:24; Admin Dose 0.5 MG; Start 10/21/16 at 18:00 Diagnostic Test (Pha) (Accu-Chek) 1 ea Q12 XX Last administered on 11/04/16 09 :30; Admin Dose 1 EA; Start 10/22/16 at 09:00 Metoclopramide HCl (Reglan) 5 mg Q6 IV Last administered on 11/05/16 12:04; Admin Dose 5 MG; Start 10/23/16 at 00:00 Diphenhydramine HCl (Benadryl) 50 mg Q7D IV Last administered on 11/04/16 16: 41; Admin Dose 50 MG; Start 10/28/16 at 09:00; Stop 11/11/16 at 09:01 Famotidine 20 mg 20 mg Q7D IV Last administered on 11/04/16 16:41; Admin Dose 20 MG; Start 10/28/16 at 09:00; Stop 11/11/16 at 09:01 Dexamethasone/ Dextrose (Decadron/D5W) 55 ml @ 252 mls/hr Q7D IV Last administered on 11/04/16 16:38; Admin Dose 252 MLS/HR; Start 10/28/16 at 09:00; Stop 11/11/16 at 09:14 Dexamethasone (Decadron) 10 mg Q7D IV Last administered on 11/03/16 21:48; Admin Dose 10 MG; Start 10/27/16 at 22:00; Stop 11/10/16 at 22:01 Dexamethasone 10 mg 10 mg Q7D IV Last administered on 11/04/16 04:32; Admin Dose 10 MG; Start 10/28/16 at 04:00; Stop 11/11/16 at 04:01 Paclitaxel 84 mg/ Sodium Chloride 264 ml @ 88.333 mls/ hr Q7D IV Last administered on 11/04/16 17:21; Admin Dose 88.333 MLS/HR; Start 10/28/16 at 16: 30; Stop 11/11/16 at 19:30 Acetaminophen (Ofirmev 1000mg/ 100ml Iv) 65 ml @ 260 mls/hr Q14D IVPB Last administered on 10/29/16 12:22; Admin Dose 260 MLS/HR; Start 10/28/16 at 21:00; Stop 11/11/16 at 21:14 Diphenhydramine HCl 50 mg 50 mg Q14D IV Last administered on 10/29/16 12:22; Admin Dose 50 MG; Start 10/28/16 at 21:00; Stop 11/11/16 at 21:01 Ramucirumab/ Sodium Chloride (Cyramza/NS) 285.3 ml @ 250 mls/hr Q14D IV Last administered on 10/29/16 12:41; Admin Dose 250 MLS/HR; Start 10/28/16 at 22:00; Stop 11/11/16 at 23:09 Enalaprilat (Vasotec Iv) 0.625 mg Q4H PRN IV ELEVATED BLOOD PRESSURE Last administered on 11/01/16 16:18; Admin Dose 0.625 MG; Start 10/29/16 at 10:00 Clonidine HCl (Catapres-Tts 2 Patch) 1 patch Q7D TRANSDERM Last administered on 11/03/16 18:33; Admin Dose 1 PATCH; Start 11/03/16 at 18:30 CHACHA LEDESMA MD November 05, 2016 13:05
--- NOTE | 2016-11-05 13:06 | PN ---
DATE: 11/05/2016 INFECTIOUS DISEASE PROGRESS NOTE SUBJECTIVE: No acute changes. The patient is alert, feels good, looks comfortable. Denies pain, n o fevers. No vomiting or diarrhea. LABORATORY DATA: No labs this morning. INDWELLINGS: Right chest Port-A-Cath, and NG tube. PHYSICAL EXAMINATION: GENERAL: This is a fragile, elderly [place] woman who is alert, in no distress. HEENT: Head atraumatic, normocephalic. Sclerae anicteric. Buccal mucosa pink. NECK: Supple. CHEST: Rise symmetrical. Breath sounds clear. HEART: S1, S2. ABDOMEN: Soft, bowel sounds present. EXTREMITIES: No cyanosis. ASSESSMENT: 1. Metastatic gastric CA with abdominal carcinomatosis. 2. Partial small bowel obstruction. 3. Hypertension. 4. Anemia. 5. Status post pneumonia. PLAN: The patient remains stable. Continue present care. Observe off antibiotics. Follow oncolog y recommendations. Dictated By: KJ HUYNH COUNSELOR AID for LOLLY MUELLER/[place] Conf#: [id number] DID#: [id number]
--- NOTE | 2016-11-05 17:42 | PN ---
DATE: 11/05/2016 SUBJECTIVE: The patient is awake, alert. [place] a little bloated after lunch today. Otherwise, no a bdominal pain or nausea. OBJECTIVE: VITAL SIGNS: Temperature 97.9, blood pressure 154/69, pulse of 53, respiration rate of 20, O2 satur ation 99% on room air. HEENT: Pupils equally round, reactive to light. Oropharynx clear. CHEST: Lungs are clear to auscultation with minimal bibasilar crackles. CARDIAC: II/ systolic murmur. ABDOMEN: Active bowel sounds, soft, nondistended, nontender. EXTREMITIES: No clubbing, cyanosis, or edema. LABORATORY DATA: Sodium 136, potassium 5.0, BUN 20, creatinine 0.55, glucose 146. ASSESSMENT AND PLAN: 1. Stage IV metastatic gastric carcinoma. The patient is on week 2 of treatment. Continue to [facility] for side effects. 2. Nausea and vomiting with partial small-bowel obstruction. Continue NG tube suction as needed. The patient is able to tolerate clear liquid diet only some of the time and still requires TPN for o ngoing nutritional needs. 3. History of pneumonia. Completed IV antibiotics for pneumonia and for peritonitis. I will reche ck a chest x-ray, but the patient is clinically stable without evidence of infection. Dictated By: KOBY FRANCO MD DP/[place] Conf#: [id number] DID#: [id number]
[2016-11-05 19:00] VITALS: BP 152/67; RESP 18
[2016-11-06] MEDS: METOCLOPRAMIDE 10 MG INJ IV SCH ×5 (00:23→23:48)
[2016-11-06] MEDS: TPN 1,000 ML IV SCH (01:43)
[2016-11-06] MEDS: D5-NS + KCL 20 MEQ 1,000 ML IV SCH ×3 (01:47→16:11)
[2016-11-06 04:47] VITALS: BP 152/67; PULSE 55; RESP 18
[2016-11-06 05:02] LABS: ADD SCAN DIFF NO
[2016-11-06 05:27] LABS: POTASSIUM 4.2 mmol/L (3.5-5.1)
[2016-11-06 05:29] LABS: CREATININE 0.44 mg/dl (0.44-1.00)
[2016-11-06 05:30] LABS: CALCIUM 8.1 mg/dl (8.4-10.2); PHOSPHORUS 3.2 mg/dl (2.5-4.9)
[2016-11-06 05:31] LABS: MAGNESIUM 1.7 mg/dl (1.7-2.5)
[2016-11-06 07:21] LABS: ABNORMAL IP MESSAGE 1; HEMATOCRIT 27.3 % (37.0-47.0); HEMOGLOBIN 8.5 g/dl (12.0-16.0); MEAN CORPUSCULAR HEMOGLOBIN 26.9 pg (29.0-33.0); MEAN CORPUSCULAR HGB CONC 31.1 g/dl (32.0-37.0); MEAN CORPUSCULAR VOLUME 86.4 fl (82.0-101.0); MEAN PLATELET VOLUME 11.8 fl (7.4-10.4); RED BLOOD COUNT 3.16 10^6/ul (4.20-5.40); RED CELL DISTRIBUTION WIDTH 15.2 % (11.5-14.5); WHITE BLOOD COUNT 1.8 10^3/ul (4.8-10.8)
[2016-11-06 07:27] LABS: PLATELET COUNT 133 10^3/UL (140-415)
[2016-11-06 08:36] VITALS: BP 145/59; RESP 19
[2016-11-06] MEDS: ACCU-CHEK XX SCH ×2 (09:00→21:00)
[2016-11-06 09:38] LABS: LYMPHOCYTES # 0.5 10^3/ul (0.8-2.9); NEUTROPHIL # 1.3 10^3/ul (1.6-7.5)
--- NOTE | 2016-11-06 09:54 | CONS ---
DATE OF ADMISSION: 10/16/2016 DATE OF CONSULTATION: 11/06/2016 PROGRESS NOTE SUBJECTIVE: The patient is not now complaining of abdominal pain. She did receive day 8 chemothera py with paclitaxel on 11/04/2016. The patient tolerated this well. PHYSICAL EXAMINATION: VITAL SIGNS: Temperature 98, pulse 56, respirations 19, blood pressure 145/59 and pulse oximetry 99 % on room air. SKIN: Pale. No ecchymosis, no petechiae or rashes. HEENT: No mucosal lesions. No scleral icterus. NG tube in place. No mucosal ulcerations. NECK: Supple. No jugular venous distention or thyroid enlargement. CHEST: Clear to auscultation and percussion. No rhonchi, wheezes, rales or rubs. There is a port in place in the right anterior chest. This has been accessed. There is no evidence of infection. HEART: Regular sinus rhythm. No S3, S4 or murmurs. ABDOMEN: There is a colostomy stoma in the left mid abdomen. The entire left abdomen is firm. No distinct edges to mass. Bowel sounds are absent. EXTREMITIES: No clubbing, edema or cyanosis. No palpable cords or Homans sign. LABORATORY: White count today is 1,800, hemoglobin 8.5, hematocrit 27.3, platelet count is 133,000. Sodium 139, potassium 4.2, BUN 21, creatinine 0.44. The patient's oral intake yesterday was 1300 mL. There was no emesis reported and drainage from the NG tube is reported to be 500 mL. ASSESSMENT: 1. Gastric carcinoma with abdominal carcinomatosis. 2. Bowel obstruction secondary to #1. 3. Neutropenia secondary to chemotherapy. PLAN: White count is dropping and the patient will therefore be started on filgrastim. Will plan on giving 480 mcg daily for 5 days. The patient's next chemotherapy is due on 11/12/2016. At that time the patient will receive paclita xel and also Cyramza again. Dictated By: RADHA RODRIGUES MD SR/NTS Conf#: [id number] DID#: [id number]
--- NOTE | 2016-11-06 12:06 | RADRPT ---
PROCEDURE: Chest 2 views. CLINICAL INDICATION: Shortness of breath, pneumonia TECHNIQUE: PA and lateral views of the chest were obtained. COMPARISON: October 21, 2016 FINDINGS: The heart size is within normal limits. Calcified atherosclerosis is noted in the aorta. Right-sided chest port is stable and appears in grossly appropriate location. The lungs are hyperexpanded. No consolidations are identified. No pneumothorax is seen. The osseous structures are osteopenic, bu t appear intact. Moderate degenerative changes are seen in the spine. IMPRESSION: Calcified atherosclerosis in the aorta. Hyperexpanded, clear lungs. RPTAT: AA .Jose C Lorenzo MD, MD Date Time Electronically viewed and signed by .Jose C Lorenzo MD, on 11/06/2016 12:06 .P/
--- NOTE | 2016-11-06 13:58 | CONS ---
Date/Time of Note Date/Time of Note DATE: 11/06/16 TIME: 13:56 Assessment/Plan Assessment/Plan Chief Complaint/Hosp Course SUBJECTIVE: No acute changes. The patient looks comfortable. She is NPO status 2 to abdominal pain INDWELLINGS: Right chest Port-A-Cath, and NG tube. PHYSICAL EXAMINATION: GENERAL: This is a fragile, elderly [place] woman who is alert, in no distress. HEENT: Head atraumatic, normocephalic. Sclerae anicteric. Buccal mucosa pink. NECK: Supple. CHEST: Rise symmetrical. Breath sounds clear. HEART: S1, S2. ABDOMEN: Soft, bowel sounds present. EXTREMITIES: No cyanosis. ASSESSMENT: 1. Metastatic gastric CA with abdominal carcinomatosis. 2. Bowel obstruction 2 to #1. 3. Hypertension. 4. Anemia. 5. Status post pneumonia. PLAN: The patient remains unchanged. Continue present care. Follow oncology recommendations. ?Repeat CT abdomen [facility] staff Problems: Consultation Date/Type/Reason Admit Date/Time Oct 16, 2016 at 08:57 Type of Consultation: ID Referring Provider: KOBY FRANCO MD Exam/Review of Systems Vital Signs Vitals Vital Signs Date Time Temp Pulse Resp B/P Pulse Ox O2 Delivery O2 Flow Rate FiO2 11/06/16 08:36 98.0 56 19 145/59 99 11/05/16 12:07 Room Air Intake and Output 11/05/16 11/05/16 11/06/16 15:00 23:00 07:00 Intake Total 480 ml 1380 ml 1405 ml Output Total 350 ml 850 ml Balance 480 ml 1030 ml 555 ml Results Result Diagram: 11/06/16 0615 11/06/16 0442 Results 24 hrs Laboratory Tests Test 11/05/16 20:15 11/06/16 04:42 11/06/16 06:15 11/06/16 08:02 Bedside Glucose 96 102 Erythrocyte Sedimentation Rate 37 H Sodium Level 139 Potassium Level 4.2 Chloride Level 107 Carbon Dioxide Level 25 Anion Gap 11 Blood Urea Nitrogen 21 H Creatinine 0.44 Glucose Level 80 # Calcium Level 8.1 L Phosphorus Level 3.2 Magnesium Level 1.7 White Blood Count 1.8 #L Red Blood Count 3.16 L Hemoglobin 8.5 L Hematocrit 27.3 L Mean Corpuscular Volume 86.4 Mean Corpuscular Hemoglobin 26.9 L Mean Corpuscular Hemoglobin Concent 31.1 L Red Cell Distribution Width 15.2 H Platelet Count 133 #L Mean Platelet Volume 11.8 H Neutrophils % 72.0 Lymphocytes % 26.0 Monocytes % 1.0 Eosinophils % 1.0 Neutrophils # 1.3 L Lymphocytes # 0.5 L Monocytes # 0.0 L Eosinophils # 0.0 Giant Platelets OCCASIONAL Medications Medications Current Medications Ondansetron HCl 4 mg 4 mg Q4H PRN IV NAUSEA AND/OR VOMITING Last administered on 10/31/16 20:30; Admin Dose 4 MG; Start 10/17/16 at 19:00 Total Parenteral Nutrition (Tpn) 1,000 ml @ 40 mls/hr Q24H IV Last administered on 11/06/16 01:43; Admin Dose 40 MLS/HR; Start 10/19/16 at 18:30 Fentanyl (Duragesic 12 Mcg/Hr Patch) 1 patch Q72H TRANSDERM Last administered on 11/03/16 18:49; Admin Dose 1 PATCH; Start 10/19/16 at 18:30 Hydromorphone HCl 1 mg 1 mg Q4H PRN IV BREAKTHROUGH PAIN Last administered on 01:04; Admin Dose 1 MG; Start 10/19/16 at 23:00 Potassium Chloride/Dextrose/ Sod Cl (D5-NS + KCl 20 Meq) 1,000 ml @ 70 mls/hr [id number] IV Last administered on 11/06/16 01:47; Admin Dose 70 MLS/HR; Start at 18:00 Lorazepam (Ativan) 0.5 mg Q8H PRN IV anxiety, insomnia Last administered on 15:24; Admin Dose 0.5 MG; Start 10/21/16 at 18:00 Diagnostic Test (Pha) (Accu-Chek) 1 ea Q12 XX Last administered on 11/05/16 20 :19; Admin Dose 1 EA; Start 10/22/16 at 09:00 Metoclopramide HCl (Reglan) 5 mg Q6 IV Last administered on 11/06/16 11:25; Admin Dose 5 MG; Start 10/23/16 at 00:00 Diphenhydramine HCl (Benadryl) 50 mg Q7D IV Last administered on 11/04/16 16: 41; Admin Dose 50 MG; Start 10/28/16 at 09:00; Stop 11/11/16 at 09:01 Famotidine 20 mg 20 mg Q7D IV Last administered on 11/04/16 16:41; Admin Dose 20 MG; Start 10/28/16 at 09:00; Stop 11/11/16 at 09:01 Dexamethasone/ Dextrose (Decadron/D5W) 55 ml @ 252 mls/hr Q7D IV Last administered on 11/04/16 16:38; Admin Dose 252 MLS/HR; Start 10/28/16 at 09:00; Stop 11/11/16 at 09:14 Dexamethasone (Decadron) 10 mg Q7D IV Last administered on 11/03/16 21:48; Admin Dose 10 MG; Start 10/27/16 at 22:00; Stop 11/10/16 at 22:01 Dexamethasone 10 mg 10 mg Q7D IV Last administered on 11/04/16 04:32; Admin Dose 10 MG; Start 10/28/16 at 04:00; Stop 11/11/16 at 04:01 Paclitaxel 84 mg/ Sodium Chloride 264 ml @ 88.333 mls/ hr Q7D IV Last administered on 11/04/16 17:21; Admin Dose 88.333 MLS/HR; Start 10/28/16 at 16: 30; Stop 11/11/16 at 19:30 Acetaminophen (Ofirmev 1000mg/ 100ml Iv) 65 ml @ 260 mls/hr Q14D IVPB Last administered on 10/29/16 12:22; Admin Dose 260 MLS/HR; Start 10/28/16 at 21:00; Stop 11/11/16 at 21:14 Diphenhydramine HCl 50 mg 50 mg Q14D IV Last administered on 10/29/16 12:22; Admin Dose 50 MG; Start 10/28/16 at 21:00; Stop 11/11/16 at 21:01 Ramucirumab/ Sodium Chloride (Cyramza/NS) 285.3 ml @ 250 mls/hr Q14D IV Last administered on 10/29/16 12:41; Admin Dose 250 MLS/HR; Start 10/28/16 at 22:00; Stop 11/11/16 at 23:09 Enalaprilat (Vasotec Iv) 0.625 mg Q4H PRN IV ELEVATED BLOOD PRESSURE Last administered on 11/01/16 16:18; Admin Dose 0.625 MG; Start 10/29/16 at 10:00 Clonidine HCl (Catapres-Tts 2 Patch) 1 patch Q7D TRANSDERM Last administered on 11/03/16 18:33; Admin Dose 1 PATCH; Start 11/03/16 at 18:30 Filgrastim (Neupogen) 480 mcg DAILY@17 SC ; Start 11/06/16 at 17:00; Stop at 17:00 KJ HUYNH NP November 06, 2016 13:58
[2016-11-06 14:35] VITALS: BP 147/69; PULSE 66; RESP 20
[2016-11-06] MEDS: HYDROmorphONE 1 MG/ML SYG IV PRN ×2 (16:12→21:03)
[2016-11-06] MEDS: FILGRASTIM 480 MCG INJ SC SCH (16:17)
[2016-11-06] MEDS: FENTAnyl PATCH 12 MCG/HR TRANSDERM SCH (16:53)
[2016-11-06 19:05] VITALS: BP 147/65; RESP 18
[2016-11-07] MEDS: TPN 1,000 ML IV SCH ×2 (03:22→18:30)
[2016-11-07 05:22] LABS: ABNORMAL IP MESSAGE 1; HEMATOCRIT 20.7 % (37.0-47.0); MEAN CORPUSCULAR HEMOGLOBIN 27.2 pg (29.0-33.0); MEAN CORPUSCULAR HGB CONC 31.9 g/dl (32.0-37.0); MEAN CORPUSCULAR VOLUME 85.2 fl (82.0-101.0); MEAN PLATELET VOLUME 12.3 fl (7.4-10.4); RED BLOOD COUNT 2.43 10^6/ul (4.20-5.40); RED CELL DISTRIBUTION WIDTH 15.2 % (11.5-14.5)
[2016-11-07] MEDS: METOCLOPRAMIDE 10 MG INJ IV SCH ×4 (06:14→23:56)
[2016-11-07] MEDS: D5-NS + KCL 20 MEQ 1,000 ML IV SCH ×2 (06:15→15:00)
[2016-11-07 06:17] LABS: ALBUMIN 2.3 g/dl (3.3-4.9); POTASSIUM 4.2 mmol/L (3.5-5.1)
[2016-11-07 06:19] LABS: CREATININE 0.43 mg/dl (0.44-1.00)
[2016-11-07 06:20] LABS: ALBUMIN/GLOBULIN RATIO 0.74; BILIRUBIN,DIRECT 0.3 mg/dl (0.00-0.20); BILIRUBIN,TOTAL 1.3 mg/dl (0.2-1.3); CALCIUM 7.9 mg/dl (8.4-10.2); TOTAL PROTEIN 5.4 g/dl (6.1-8.1)
[2016-11-07 08:20] VITALS: BP 174/74; RESP 19
[2016-11-07] MEDS: ACCU-CHEK XX SCH ×2 (09:00→21:00)
[2016-11-07 11:16] LABS: POLYCHROMASIA 1+
[2016-11-07 11:20] LABS: ADD SCAN DIFF YES
--- NOTE | 2016-11-07 11:40 | PN ---
DATE: 11/06/2016 SUBJECTIVE: The patient complains of mild abdominal pain and bloating after dinner yesterday, so reed s been on NG tube suction since then. OBJECTIVE: VITAL SIGNS: Temperature 98.0, blood pressure 145/59, pulse of 56 to 66, respiration rate 20, O2 sa turation 97% on room air. HEENT: Anicteric sclerae. Oropharynx clear. CHEST: Minimal basilar crackles bilaterally. CARDIAC: A II/ systolic murmur. Regular rhythm. ABDOMEN: Active bowel sounds. Soft, nondistended. Mild tenderness in the epigastric area. Left i leostomy draining loose stool. EXTREMITIES: No clubbing, cyanosis, or edema. LABORATORY DATA: WBC 1.8, hemoglobin 8.5, hematocrit 27.3, platelet count 133,000. Sodium 139, pot assium 4.2, BUN 21, creatinine 0.44, glucose 80. Chest x-ray shows calcified atherosclerosis of the aorta. Hyperexpanded but clear lungs. ASSESSMENT AND PLAN: 1. Metastatic gastric carcinoma undergoing weekly chemotherapy. Agree with Neupogen as ordered by Dr. Henderson since patient's white cell count is dropping. 2. Nausea, vomiting. The patient has history of ileus, partial obstruction, peritonitis, and eleva gissell liver enzymes all due to her endstage metastatic gastric cancer. We will continue to treat pall iatively with NG tube suction and total parenteral nutrition. Will resume clear liquids only if pat ient can tolerate it. 3. Infectious disease. Patient was admitted with pneumonitis, but the lungs have since cleared. S he also was treated for peritonitis and the leukocytosis, fever, and abdominal pain have improved. She is now having a little recurrence of abdominal pain. Will need to continue to watch this, and i f there are symptoms of infection, will need to obtain an abdominal CT. Dictated By: KOYB FRANCO MD DP/NTS Conf#: [id number] DID#: [id number]
[2016-11-07 12:29] VITALS: BP 157/70; RESP 19
[2016-11-07] MEDS: ENALAPRILAT 1.25 MG INJ IV PRN (13:38)
[2016-11-07] MEDS: HYDROmorphONE 1 MG/ML SYG IV PRN ×2 (14:17→23:56)
[2016-11-07] MEDS: ONDANSETRON 4 MG INJ IV PRN (14:26)
--- NOTE | 2016-11-07 14:37 | CONS ---
Date/Time of Note Date/Time of Note DATE: 11/07/16 TIME: 14:35 Assessment/Plan Assessment/Plan Chief Complaint/Hosp Course SUBJECTIVE: No acute changes. The patient is alert, looks comfortable. Started on TPN INDWELLINGS: Right chest Port-A-Cath, and NG tube. PHYSICAL EXAMINATION: GENERAL: This is a fragile, elderly English woman who is alert, in no distress. HEENT: Head atraumatic, normocephalic. Sclerae anicteric. Buccal mucosa pink. NECK: Supple. CHEST: Rise symmetrical. Breath sounds clear. HEART: S1, S2. ABDOMEN: Soft, bowel sounds present. EXTREMITIES: No cyanosis. ASSESSMENT: 1. Metastatic gastric CA with abdominal carcinomatosis. 2. Bowel obstruction 2 to #1. 3. Hypertension. 4. Anemia. 5. Status post pneumonia. PLAN: The patient remains unchanged. On Neupogen and TPN, no fevers, continue present care. Follow oncology recommendations, james cx prn [facility] staff Problems: Consultation Date/Type/Reason Admit Date/Time Oct 16, 2016 at 08:57 Type of Consultation: ID Referring Provider: KOBY FRANCO MD Exam/Review of Systems Vital Signs Vitals Vital Signs Date Time Temp Pulse Resp B/P Pulse Ox O2 Delivery O2 Flow Rate FiO2 11/07/16 12:29 99.0 71 19 157/70 98 11/06/16 14:35 Room Air Intake and Output 11/06/16 11/06/16 11/07/16 15:00 23:00 07:00 Intake Total 0 ml 1420 ml Output Total 600 ml Balance 0 ml 820 ml Results Result Diagram: 11/07/16 0441 11/07/16 0441 Results 24 hrs Laboratory Tests Test 11/06/16 20:57 11/07/16 04:41 11/07/16 08:13 Bedside Glucose 104 113 White Blood Count 1.6 L Red Blood Count 2.43 #L Hemoglobin 6.6 #*L Hematocrit 20.7 #L Mean Corpuscular Volume 85.2 Mean Corpuscular Hemoglobin 27.2 L Mean Corpuscular Hemoglobin Concent 31.9 L Red Cell Distribution Width 15.2 H Platelet Count 104 #L Mean Platelet Volume 12.3 H Neutrophils % 74.0 Band Neutrophils % 2.0 Lymphocytes % 22.0 Monocytes % 1.0 Eosinophils % 1.0 Basophils % 0.0 Nucleated Red Blood Cells % 0.0 Neutrophils # Lymphocytes # Monocytes # Eosinophils # Basophils # Nucleated Red Blood Cells # Differential Comment MANUAL DIFF Polychromasia 1+ Sodium Level 137 Potassium Level 4.2 Chloride Level 105 Carbon Dioxide Level 25 Anion Gap 11 Blood Urea Nitrogen 18 Creatinine 0.43 L Glucose Level 100 Calcium Level 7.9 L Total Bilirubin 1.3 Direct Bilirubin 0.30 H Indirect Bilirubin 1.0 Aspartate Amino Transf (AST/SGOT) 41 Alanine Aminotransferase (ALT/SGPT) 52 Alkaline Phosphatase 180 H Total Protein 5.4 L Albumin 2.3 L Globulin 3.10 Albumin/Globulin Ratio 0.74 Medications Medications Current Medications Ondansetron HCl 4 mg 4 mg Q4H PRN IV NAUSEA AND/OR VOMITING Last administered on 11/07/16 14:26; Admin Dose 4 MG; Start 10/17/16 at 19:00 Total Parenteral Nutrition (Tpn) 1,000 ml @ 40 mls/hr Q24H IV Last administered on 11/07/16 03:22; Admin Dose 40 MLS/HR; Start 10/19/16 at 18:30 Fentanyl (Duragesic 12 Mcg/Hr Patch) 1 patch Q72H TRANSDERM Last administered on 11/06/16 16:53; Admin Dose 1 PATCH; Start 10/19/16 at 18:30 Hydromorphone HCl 1 mg 1 mg Q4H PRN IV BREAKTHROUGH PAIN Last administered on 14:17; Admin Dose 1 MG; Start 10/19/16 at 23:00 Potassium Chloride/Dextrose/ Sod Cl (D5-NS + KCl 20 Meq) 1,000 ml @ 70 mls/hr [id number] IV Last administered on 11/07/16 06:15; Admin Dose 70 MLS/HR; Start at 18:00 Lorazepam (Ativan) 0.5 mg Q8H PRN IV anxiety, insomnia Last administered on 15:24; Admin Dose 0.5 MG; Start 10/21/16 at 18:00 Diagnostic Test (Pha) (Accu-Chek) 1 ea Q12 XX Last administered on 11/05/16 20 :19; Admin Dose 1 EA; Start 10/22/16 at 09:00 Metoclopramide HCl (Reglan) 5 mg Q6 IV Last administered on 11/07/16 11:06; Admin Dose 5 MG; Start 10/23/16 at 00:00 Diphenhydramine HCl (Benadryl) 50 mg Q7D IV Last administered on 11/04/16 16: 41; Admin Dose 50 MG; Start 10/28/16 at 09:00; Stop 11/11/16 at 09:01 Famotidine 20 mg 20 mg Q7D IV Last administered on 11/04/16 16:41; Admin Dose 20 MG; Start 10/28/16 at 09:00; Stop 11/11/16 at 09:01 Dexamethasone/ Dextrose (Decadron/D5W) 55 ml @ 252 mls/hr Q7D IV Last administered on 11/04/16 16:38; Admin Dose 252 MLS/HR; Start 10/28/16 at 09:00; Stop 11/11/16 at 09:14 Dexamethasone (Decadron) 10 mg Q7D IV Last administered on 11/03/16 21:48; Admin Dose 10 MG; Start 10/27/16 at 22:00; Stop 11/10/16 at 22:01 Dexamethasone 10 mg 10 mg Q7D IV Last administered on 11/04/16 04:32; Admin Dose 10 MG; Start 10/28/16 at 04:00; Stop 11/11/16 at 04:01 Paclitaxel 84 mg/ Sodium Chloride 264 ml @ 88.333 mls/ hr Q7D IV Last administered on 11/04/16 17:21; Admin Dose 88.333 MLS/HR; Start 10/28/16 at 16: 30; Stop 11/11/16 at 19:30 Acetaminophen (Ofirmev 1000mg/ 100ml Iv) 65 ml @ 260 mls/hr Q14D IVPB Last administered on 10/29/16 12:22; Admin Dose 260 MLS/HR; Start 10/28/16 at 21:00; Stop 11/11/16 at 21:14 Diphenhydramine HCl 50 mg 50 mg Q14D IV Last administered on 10/29/16 12:22; Admin Dose 50 MG; Start 10/28/16 at 21:00; Stop 11/11/16 at 21:01 Ramucirumab/ Sodium Chloride (Cyramza/NS) 285.3 ml @ 250 mls/hr Q14D IV Last administered on 10/29/16 12:41; Admin Dose 250 MLS/HR; Start 10/28/16 at 22:00; Stop 11/11/16 at 23:09 Enalaprilat (Vasotec Iv) 0.625 mg Q4H PRN IV ELEVATED BLOOD PRESSURE Last administered on 11/07/16 13:38; Admin Dose 0.625 MG; Start 10/29/16 at 10:00 Clonidine HCl (Catapres-Tts 2 Patch) 1 patch Q7D TRANSDERM Last administered on 11/03/16 18:33; Admin Dose 1 PATCH; Start 11/03/16 at 18:30 Filgrastim (Neupogen) 480 mcg DAILY@17 SC Last administered on 11/06/16 16:17 ; Admin Dose 480 MCG; Start 11/06/16 at 17:00; Stop 11/10/16 at 17:00 KJ HUYNH NP November 07, 2016 14:37
--- NOTE | 2016-11-07 16:42 | PN ---
Date/Time of Note Date/Time of Note DATE: 11/07/16 TIME: 16:39 Assessment/Plan VTE Prophylaxis VTE Prophylaxis Intervention: LMWH Lines/Catheters IV [facility]ACATH Urinary Cath still in place: No Assessment/Plan Chief Complaint/Hosp Course 66 year old female with: > Gastric cancer, stage 4 with carcinomatosis. On chemotherapy, next cycle due 11/12. > Anemia, with sudden drop in h/h. Likely from bleeding from tumor, coffee grounds in NGT. Plan: 2 units pRBC today, then repeat CBC. Monitor h/h. Problems: Subjective 24 Hr Interval Summary Free Text/Dictation She has no particular c/o. Pain is well controlled. has NGT with coffee grounds coming up. h/h low this am. Exam/Review of Systems Vital Signs Vitals Vital Signs Date Time Temp Pulse Resp B/P Pulse Ox O2 Delivery O2 Flow Rate FiO2 11/07/16 12:29 99.0 71 19 157/70 98 11/06/16 14:35 Room Air Intake and Output 11/06/16 11/06/16 11/07/16 15:00 23:00 07:00 Intake Total 1260 ml 1420 ml Output Total 600 ml Balance 1260 ml 820 ml Exam Thin fraile female, with NGT in place Coffee grounds in NGT. Abd distended and tight, non tender Ostomy with some stool in bag No edema. Results Result Diagram: 11/07/16 0441 11/07/16 0441 Results 24 hrs Laboratory Tests Test 11/06/16 20:57 11/07/16 04:41 11/07/16 08:13 Bedside Glucose 104 113 White Blood Count 1.6 L Red Blood Count 2.43 #L Hemoglobin 6.6 #*L Hematocrit 20.7 #L Mean Corpuscular Volume 85.2 Mean Corpuscular Hemoglobin 27.2 L Mean Corpuscular Hemoglobin Concent 31.9 L Red Cell Distribution Width 15.2 H Platelet Count 104 #L Mean Platelet Volume 12.3 H Neutrophils % 74.0 Band Neutrophils % 2.0 Lymphocytes % 22.0 Monocytes % 1.0 Eosinophils % 1.0 Basophils % 0.0 Nucleated Red Blood Cells % 0.0 Neutrophils # Lymphocytes # Monocytes # Eosinophils # Basophils # Nucleated Red Blood Cells # Differential Comment MANUAL DIFF Polychromasia 1+ Sodium Level 137 Potassium Level 4.2 Chloride Level 105 Carbon Dioxide Level 25 Anion Gap 11 Blood Urea Nitrogen 18 Creatinine 0.43 L Glucose Level 100 Calcium Level 7.9 L Total Bilirubin 1.3 Direct Bilirubin 0.30 H Indirect Bilirubin 1.0 Aspartate Amino Transf (AST/SGOT) 41 Alanine Aminotransferase (ALT/SGPT) 52 Alkaline Phosphatase 180 H Total Protein 5.4 L Albumin 2.3 L Globulin 3.10 Albumin/Globulin Ratio 0.74 Medications Medications Current Medications Ondansetron HCl 4 mg 4 mg Q4H PRN IV NAUSEA AND/OR VOMITING Last administered on 11/07/16 14:26; Admin Dose 4 MG; Start 10/17/16 at 19:00 Total Parenteral Nutrition (Tpn) 1,000 ml @ 40 mls/hr Q24H IV Last administered on 11/07/16 03:22; Admin Dose 40 MLS/HR; Start 10/19/16 at 18:30 Fentanyl (Duragesic 12 Mcg/Hr Patch) 1 patch Q72H TRANSDERM Last administered on 11/06/16 16:53; Admin Dose 1 PATCH; Start 10/19/16 at 18:30 Hydromorphone HCl 1 mg 1 mg Q4H PRN IV BREAKTHROUGH PAIN Last administered on 14:17; Admin Dose 1 MG; Start 10/19/16 at 23:00 Potassium Chloride/Dextrose/ Sod Cl (D5-NS + KCl 20 Meq) 1,000 ml @ 70 mls/hr [id number] IV Last administered on 11/07/16 06:15; Admin Dose 70 MLS/HR; Start at 18:00 Lorazepam (Ativan) 0.5 mg Q8H PRN IV anxiety, insomnia Last administered on 15:24; Admin Dose 0.5 MG; Start 10/21/16 at 18:00 Diagnostic Test (Pha) (Accu-Chek) 1 ea Q12 XX Last administered on 11/05/16 20 :19; Admin Dose 1 EA; Start 10/22/16 at 09:00 Metoclopramide HCl (Reglan) 5 mg Q6 IV Last administered on 11/07/16 11:06; Admin Dose 5 MG; Start 10/23/16 at 00:00 Diphenhydramine HCl (Benadryl) 50 mg Q7D IV Last administered on 11/04/16 16: 41; Admin Dose 50 MG; Start 10/28/16 at 09:00; Stop 11/11/16 at 09:01 Famotidine 20 mg 20 mg Q7D IV Last administered on 11/04/16 16:41; Admin Dose 20 MG; Start 10/28/16 at 09:00; Stop 11/11/16 at 09:01 Dexamethasone/ Dextrose (Decadron/D5W) 55 ml @ 252 mls/hr Q7D IV Last administered on 11/04/16 16:38; Admin Dose 252 MLS/HR; Start 10/28/16 at 09:00; Stop 11/11/16 at 09:14 Dexamethasone (Decadron) 10 mg Q7D IV Last administered on 11/03/16 21:48; Admin Dose 10 MG; Start 10/27/16 at 22:00; Stop 11/10/16 at 22:01 Dexamethasone 10 mg 10 mg Q7D IV Last administered on 11/04/16 04:32; Admin Dose 10 MG; Start 10/28/16 at 04:00; Stop 11/11/16 at 04:01 Paclitaxel 84 mg/ Sodium Chloride 264 ml @ 88.333 mls/ hr Q7D IV Last administered on 11/04/16 17:21; Admin Dose 88.333 MLS/HR; Start 10/28/16 at 16: 30; Stop 11/11/16 at 19:30 Acetaminophen (Ofirmev 1000mg/ 100ml Iv) 65 ml @ 260 mls/hr Q14D IVPB Last administered on 10/29/16 12:22; Admin Dose 260 MLS/HR; Start 10/28/16 at 21:00; Stop 11/11/16 at 21:14 Diphenhydramine HCl 50 mg 50 mg Q14D IV Last administered on 10/29/16 12:22; Admin Dose 50 MG; Start 10/28/16 at 21:00; Stop 11/11/16 at 21:01 Ramucirumab/ Sodium Chloride (Cyramza/NS) 285.3 ml @ 250 mls/hr Q14D IV Last administered on 10/29/16 12:41; Admin Dose 250 MLS/HR; Start 10/28/16 at 22:00; Stop 11/11/16 at 23:09 Enalaprilat (Vasotec Iv) 0.625 mg Q4H PRN IV ELEVATED BLOOD PRESSURE Last administered on 11/07/16 13:38; Admin Dose 0.625 MG; Start 10/29/16 at 10:00 Clonidine HCl (Catapres-Tts 2 Patch) 1 patch Q7D TRANSDERM Last administered on 11/03/16 18:33; Admin Dose 1 PATCH; Start 11/03/16 at 18:30 Filgrastim (Neupogen) 480 mcg DAILY@17 SC Last administered on 11/06/16 16:17 ; Admin Dose 480 MCG; Start 11/06/16 at 17:00; Stop 11/10/16 at 17:00 CORNELIA RIOS MD November 07, 2016 16:42
[2016-11-07] MEDS: FILGRASTIM 480 MCG INJ SC SCH (17:24)
[2016-11-07 19:05] VITALS: BP 140/63; RESP 18
[2016-11-07] MEDS ORDERED: CALCIUM GLUCONATE 10% 2 GM in SOD CHLORIDE 0.9% 100 ML IVPB ONE (21:30)
[2016-11-07] MEDS ORDERED: ALBUMIN HUMAN 25% 100 ML IV ONE (21:30)
[2016-11-08] MEDS: TPN 1,000 ML IV SCH ×5 (01:34→22:10)
[2016-11-08 05:29] LABS: ADD SCAN DIFF NO
[2016-11-08 05:47] LABS: ABNORMAL IP MESSAGE 1; HEMOGLOBIN 9.1 g/dl (12.0-16.0); MEAN CORPUSCULAR HEMOGLOBIN 29.2 pg (29.0-33.0); MEAN CORPUSCULAR HGB CONC 33.7 g/dl (32.0-37.0); MEAN CORPUSCULAR VOLUME 86.5 fl (82.0-101.0); MEAN PLATELET VOLUME 12.3 fl (7.4-10.4); PLATELET COUNT 77 10^3/UL (140-415); RED BLOOD COUNT 3.12 10^6/ul (4.20-5.40); RED CELL DISTRIBUTION WIDTH 14.3 % (11.5-14.5); WHITE BLOOD COUNT 0.7 10^3/ul (4.8-10.8)
[2016-11-08] MEDS: METOCLOPRAMIDE 10 MG INJ IV SCH ×4 (05:55→23:58)
[2016-11-08 06:11] LABS: ALBUMIN 2.7 g/dl (3.3-4.9); POTASSIUM 4.2 mmol/L (3.5-5.1)
[2016-11-08 06:14] LABS: CREATININE 0.42 mg/dl (0.44-1.00)
[2016-11-08 06:15] LABS: CALCIUM 9.3 mg/dl (8.4-10.2); MAGNESIUM 1.8 mg/dl (1.7-2.5)
[2016-11-08] MEDS: ACCU-CHEK XX SCH ×2 (08:32→20:24)
[2016-11-08] MEDS: ONDANSETRON 4 MG INJ IV PRN ×3 (08:36→20:17)
[2016-11-08] MEDS: HYDROmorphONE 1 MG/ML SYG IV PRN ×2 (08:36→15:02)
[2016-11-08 08:40] VITALS: BP 176/77; RESP 16
[2016-11-08 09:30] LABS: LYMPHOCYTES # 0.4 10^3/ul (0.8-2.9); NEUTROPHIL # 0.3 10^3/ul (1.6-7.5)
[2016-11-08] MEDS ORDERED: LIDOCAINE 2% VISC 15 ML CUP PO PRN (14:00)
--- NOTE | 2016-11-08 14:43 | CONS ---
Date/Time of Note Date/Time of Note DATE: 11/08/16 TIME: 14:42 Assessment/Plan Assessment/Plan Chief Complaint/Hosp Course SUBJECTIVE: Spiked fever. Alert, looks comfortable. C/o severe throat pain with swallowing INDWELLINGS: Right chest Port-A-Cath, and NG tube. PHYSICAL EXAMINATION: GENERAL: This is a fragile, elderly [place] woman who is alert, in no distress. HEENT: Head atraumatic, normocephalic. Sclerae anicteric. Buccal mucosa pink. NECK: Supple. CHEST: Rise symmetrical. Breath sounds clear. HEART: S1, S2. ABDOMEN: Soft, bowel sounds present. EXTREMITIES: No cyanosis. ASSESSMENT: 1. Metastatic gastric CA with abdominal carcinomatosis. 2. Bowel obstruction 2 to #1. 3. Hypertension. 4. Neutropenic fevers 5. Status post pneumonia. PLAN: Will james cx and start Vanco, Merrem, Fluconazole, add viscous Lidocaine, follow oncology recommendations DW staff DW Dr Ghosh Problems: Consultation Date/Type/Reason Admit Date/Time Oct 16, 2016 at 08:57 Type of Consultation: ID Referring Provider: KOBY FRANCO MD Exam/Review of Systems Vital Signs Vitals Vital Signs Date Time Temp Pulse Resp B/P Pulse Ox O2 Delivery O2 Flow Rate FiO2 11/08/16 08:40 99.0 92 16 176/77 96 11/06/16 14:35 Room Air Intake and Output 11/07/16 11/07/16 11/08/16 15:00 23:00 07:00 Intake Total 1260 ml Output Total 150 ml 500 ml Balance -150 ml 760 ml Results Result Diagram: 11/08/16 0420 11/08/16 0420 Results 24 hrs Laboratory Tests Test 11/07/16 21:17 11/08/16 04:20 11/08/16 08:31 Bedside Glucose 108 119 White Blood Count 0.7 #L Red Blood Count 3.12 #L Hemoglobin 9.1 #L Hematocrit 27.0 #L Mean Corpuscular Volume 86.5 Mean Corpuscular Hemoglobin 29.2 Mean Corpuscular Hemoglobin Concent 33.7 Red Cell Distribution Width 14.3 Platelet Count 77 #L Mean Platelet Volume 12.3 H Neutrophils % 43.0 Lymphocytes % 55.0 H Monocytes % 1.0 Eosinophils % 1.0 Basophils % Neutrophils # 0.3 L Lymphocytes # 0.4 L Monocytes # 0.0 L Eosinophils # 0.0 Basophils # Sodium Level 134 L Potassium Level 4.2 Chloride Level 102 Carbon Dioxide Level 22 Anion Gap 14 Blood Urea Nitrogen 20 Creatinine 0.42 L Glucose Level 184 Calcium Level 9.3 Magnesium Level 1.8 Albumin 2.7 L Medications Medications Current Medications Ondansetron HCl 4 mg 4 mg Q4H PRN IV NAUSEA AND/OR VOMITING Last administered on 11/08/16 08:36; Admin Dose 4 MG; Start 10/17/16 at 19:00 Total Parenteral Nutrition (Tpn) 1,000 ml @ 100 mls/hr Q10H IV Last administered on 11/08/16 13:02; Admin Dose 100 MLS/HR; Start 10/19/16 at 18:30 Fentanyl (Duragesic 12 Mcg/Hr Patch) 1 patch Q72H TRANSDERM Last administered on 11/06/16 16:53; Admin Dose 1 PATCH; Start 10/19/16 at 18:30 Hydromorphone HCl (Dilaudid) 1 mg Q4H PRN IV BREAKTHROUGH PAIN Last administered on 11/08/16 08:36; Admin Dose 1 MG; Start 10/19/16 at 23:00 Lorazepam (Ativan) 0.5 mg Q8H PRN IV anxiety, insomnia Last administered on 15:24; Admin Dose 0.5 MG; Start 10/21/16 at 18:00 Diagnostic Test (Pha) (Accu-Chek) 1 ea Q12 XX Last administered on 11/08/16 08 :32; Admin Dose 1 EA; Start 10/22/16 at 09:00 Metoclopramide HCl (Reglan) 5 mg Q6 IV Last administered on 11/08/16 11:51; Admin Dose 5 MG; Start 10/23/16 at 00:00 Diphenhydramine HCl (Benadryl) 50 mg Q7D IV Last administered on 11/04/16 16: 41; Admin Dose 50 MG; Start 10/28/16 at 09:00; Stop 11/11/16 at 09:01 Famotidine 20 mg 20 mg Q7D IV Last administered on 11/04/16 16:41; Admin Dose 20 MG; Start 10/28/16 at 09:00; Stop 11/11/16 at 09:01 Dexamethasone/ Dextrose (Decadron/D5W) 55 ml @ 252 mls/hr Q7D IV Last administered on 11/04/16 16:38; Admin Dose 252 MLS/HR; Start 10/28/16 at 09:00; Stop 11/11/16 at 09:14 Dexamethasone (Decadron) 10 mg Q7D IV Last administered on 11/03/16 21:48; Admin Dose 10 MG; Start 10/27/16 at 22:00; Stop 11/10/16 at 22:01 Dexamethasone 10 mg 10 mg Q7D IV Last administered on 11/04/16 04:32; Admin Dose 10 MG; Start 10/28/16 at 04:00; Stop 11/11/16 at 04:01 Paclitaxel 84 mg/ Sodium Chloride 264 ml @ 88.333 mls/ hr Q7D IV Last administered on 11/04/16 17:21; Admin Dose 88.333 MLS/HR; Start 10/28/16 at 16: 30; Stop 11/11/16 at 19:30 Acetaminophen (Ofirmev 1000mg/ 100ml Iv) 65 ml @ 260 mls/hr Q14D IVPB Last administered on 10/29/16 12:22; Admin Dose 260 MLS/HR; Start 10/28/16 at 21:00; Stop 11/11/16 at 21:14 Diphenhydramine HCl 50 mg 50 mg Q14D IV Last administered on 10/29/16 12:22; Admin Dose 50 MG; Start 10/28/16 at 21:00; Stop 11/11/16 at 21:01 Ramucirumab/ Sodium Chloride (Cyramza/NS) 285.3 ml @ 250 mls/hr Q14D IV Last administered on 10/29/16 12:41; Admin Dose 250 MLS/HR; Start 10/28/16 at 22:00; Stop 11/11/16 at 23:09 Enalaprilat (Vasotec Iv) 0.625 mg Q4H PRN IV ELEVATED BLOOD PRESSURE Last administered on 11/07/16 13:38; Admin Dose 0.625 MG; Start 10/29/16 at 10:00 Clonidine HCl (Catapres-Tts 2 Patch) 1 patch Q7D TRANSDERM Last administered on 11/03/16 18:33; Admin Dose 1 PATCH; Start 11/03/16 at 18:30 Filgrastim (Neupogen) 480 mcg DAILY@17 SC Last administered on 11/07/16 17:24 ; Admin Dose 480 MCG; Start 11/06/16 at 17:00; Stop 11/10/16 at 17:00 Lidocaine (Xylocaine (Viscous)) 15 ml QID PRN PO SORE THROAT; Start 11/08/16 at 14:00 KJ HUYNH NP November 08, 2016 14:43
[2016-11-08] MEDS ORDERED: VANCOMYCIN IV PER PHARMACY XX SCH (15:30)
--- NOTE | 2016-11-08 15:32 | PN ---
Date/Time of Note Date/Time of Note DATE: 11/08/16 TIME: 15:25 Assessment/Plan VTE Prophylaxis VTE Prophylaxis Intervention: other VTE Contraindication Reason: thrombocytopenia Lines/Catheters IV Catheter Type (from Nrsg): port-a-cath Central line still needed: Yes Urinary Cath still in place: No Assessment/Plan Chief Complaint/Hosp Course 66 year old female with: > Neutropenic fever started 11/08/16. Discussed with covering ID who will order cultures and appropriate antibiotics. Tylenol IV prn since cannot eat. > Gastric cancer, stage 4 with carcinomatosis. On chemotherapy, next cycle due 11/12, which may be delayed with current issues. > Anemia, with sudden drop in h/h. Likely from bleeding from tumor, coffee grounds in NGT - less today. 11/07 - was given 2 units pRBC, and h/h is stable. > Pain from malignancy. Controlled with current meds. Plan: Cultures and antibiotics per ID Monitor H/H Tylenol prn fever. Dr. Henderson to follow in am. Problems: Subjective 24 Hr Interval Summary Free Text/Dictation She continues to have pain, 10/10 at worse, pain meds help to 3/10. She does not want anything stronger. Pain is mid-epigastric. The NGT still has mild on and off blood. She has nausea, despite zofran and reglan, likely mechanical to some degree. Exam/Review of Systems Vital Signs Vitals Vital Signs Date Time Temp Pulse Resp B/P Pulse Ox O2 Delivery O2 Flow Rate FiO2 11/08/16 08:40 99.0 92 16 176/77 96 11/06/16 14:35 Room Air Intake and Output 11/07/16 11/07/16 11/08/16 15:00 23:00 07:00 Intake Total 1260 ml Output Total 150 ml 500 ml Balance -150 ml 760 ml Exam Thin and frail, family is bedside. Febrile to [address] right [address], mild blood tinge in it. Clear chad. Regular Abd firm, tender mid epig trace edema. Results Result Diagram: 11/08/16 0420 11/08/16 0420 Results 24 hrs Laboratory Tests Test 11/07/16 21:17 11/08/16 04:20 11/08/16 08:31 Bedside Glucose 108 119 White Blood Count 0.7 #L Red Blood Count 3.12 #L Hemoglobin 9.1 #L Hematocrit 27.0 #L Mean Corpuscular Volume 86.5 Mean Corpuscular Hemoglobin 29.2 Mean Corpuscular Hemoglobin Concent 33.7 Red Cell Distribution Width 14.3 Platelet Count 77 #L Mean Platelet Volume 12.3 H Neutrophils % 43.0 Lymphocytes % 55.0 H Monocytes % 1.0 Eosinophils % 1.0 Basophils % Neutrophils # 0.3 L Lymphocytes # 0.4 L Monocytes # 0.0 L Eosinophils # 0.0 Basophils # Sodium Level 134 L Potassium Level 4.2 Chloride Level 102 Carbon Dioxide Level 22 Anion Gap 14 Blood Urea Nitrogen 20 Creatinine 0.42 L Glucose Level 184 Calcium Level 9.3 Magnesium Level 1.8 Albumin 2.7 L Medications Medications Current Medications Ondansetron HCl 4 mg 4 mg Q4H PRN IV NAUSEA AND/OR VOMITING Last administered on 11/08/16 15:02; Admin Dose 4 MG; Start 10/17/16 at 19:00 Total Parenteral Nutrition (Tpn) 1,000 ml @ 100 mls/hr Q10H IV Last administered on 11/08/16 13:02; Admin Dose 100 MLS/HR; Start 10/19/16 at 18:30 Fentanyl (Duragesic 12 Mcg/Hr Patch) 1 patch Q72H TRANSDERM Last administered on 11/06/16 16:53; Admin Dose 1 PATCH; Start 10/19/16 at 18:30 Hydromorphone HCl (Dilaudid) 1 mg Q4H PRN IV BREAKTHROUGH PAIN Last administered on 11/08/16 15:02; Admin Dose 1 MG; Start 10/19/16 at 23:00 Lorazepam (Ativan) 0.5 mg Q8H PRN IV anxiety, insomnia Last administered on 15:24; Admin Dose 0.5 MG; Start 10/21/16 at 18:00 Diagnostic Test (Pha) (Accu-Chek) 1 ea Q12 XX Last administered on 11/08/16 08 :32; Admin Dose 1 EA; Start 10/22/16 at 09:00 Metoclopramide HCl (Reglan) 5 mg Q6 IV Last administered on 11/08/16 11:51; Admin Dose 5 MG; Start 10/23/16 at 00:00 Diphenhydramine HCl (Benadryl) 50 mg Q7D IV Last administered on 11/04/16 16: 41; Admin Dose 50 MG; Start 10/28/16 at 09:00; Stop 11/11/16 at 09:01 Famotidine 20 mg 20 mg Q7D IV Last administered on 11/04/16 16:41; Admin Dose 20 MG; Start 10/28/16 at 09:00; Stop 11/11/16 at 09:01 Dexamethasone/ Dextrose (Decadron/D5W) 55 ml @ 252 mls/hr Q7D IV Last administered on 11/04/16 16:38; Admin Dose 252 MLS/HR; Start 10/28/16 at 09:00; Stop 11/11/16 at 09:14 Dexamethasone (Decadron) 10 mg Q7D IV Last administered on 11/03/16 21:48; Admin Dose 10 MG; Start 10/27/16 at 22:00; Stop 11/10/16 at 22:01 Dexamethasone 10 mg 10 mg Q7D IV Last administered on 11/04/16 04:32; Admin Dose 10 MG; Start 10/28/16 at 04:00; Stop 11/11/16 at 04:01 Paclitaxel 84 mg/ Sodium Chloride 264 ml @ 88.333 mls/ hr Q7D IV Last administered on 11/04/16 17:21; Admin Dose 88.333 MLS/HR; Start 10/28/16 at 16: 30; Stop 11/11/16 at 19:30 Acetaminophen (Ofirmev 1000mg/ 100ml Iv) 65 ml @ 260 mls/hr Q14D IVPB Last administered on 10/29/16 12:22; Admin Dose 260 MLS/HR; Start 10/28/16 at 21:00; Stop 11/11/16 at 21:14 Diphenhydramine HCl 50 mg 50 mg Q14D IV Last administered on 10/29/16 12:22; Admin Dose 50 MG; Start 10/28/16 at 21:00; Stop 11/11/16 at 21:01 Ramucirumab/ Sodium Chloride (Cyramza/NS) 285.3 ml @ 250 mls/hr Q14D IV Last administered on 10/29/16 12:41; Admin Dose 250 MLS/HR; Start 10/28/16 at 22:00; Stop 11/11/16 at 23:09 Enalaprilat (Vasotec Iv) 0.625 mg Q4H PRN IV ELEVATED BLOOD PRESSURE Last administered on 11/07/16 13:38; Admin Dose 0.625 MG; Start 10/29/16 at 10:00 Clonidine HCl (Catapres-Tts 2 Patch) 1 patch Q7D TRANSDERM Last administered on 11/03/16 18:33; Admin Dose 1 PATCH; Start 11/03/16 at 18:30 Filgrastim (Neupogen) 480 mcg DAILY@17 SC Last administered on 11/07/16 17:24 ; Admin Dose 480 MCG; Start 11/06/16 at 17:00; Stop 11/10/16 at 17:00 Lidocaine (Xylocaine (Viscous)) 15 ml QID PRN PO SORE THROAT; Start 11/08/16 at 14:00 CORNELIA RIOS MD November 08, 2016 15:32
[2016-11-08] MEDS: ACETAMINOPHEN 1000MG/100ML IV 100 ML IVPB PRN (16:02)
--- NOTE | 2016-11-08 16:03 | PN ---
Date/Time of Note Date/Time of Note DATE: 11/08/16 TIME: 15:59 Assessment/Plan VTE Prophylaxis VTE Prophylaxis Intervention: contraindicated VTE Contraindication Reason: anticoagulation not tolerated Lines/Catheters IV Catheter Type (from Nrsg): port-a-cath Central line still needed: No Urinary Cath still in place: No Assessment/Plan Assessment/Plan 1. GASTRIC CA/ DYSPHAGIA/ MALNUTRITION/ ANEMIA 2. SBO 3. DEPRESSION 4. NEW FEVER ---PER ONC ---CONT ALL SUPPORTIVE CARE ---ID CONSULT Subjective 24 Hr Interval Summary Free Text/Dictation THROAT SWALLOW PAIN+ Exam/Review of Systems Vital Signs Vitals Vital Signs Date Time Temp Pulse Resp B/P Pulse Ox O2 Delivery O2 Flow Rate FiO2 11/08/16 08:40 99.0 92 16 176/77 96 11/06/16 14:35 Room Air Intake and Output 11/07/16 11/07/16 11/08/16 15:00 23:00 07:00 Intake Total 1260 ml Output Total 150 ml 500 ml Balance -150 ml 760 ml Exam THIN LYING IN BED CTA RR C/O EPIGASTRIC TENDER TO PALP+ NO EDEMA Results Result Diagram: 11/08/16 0420 11/08/16 0420 Results 24 hrs Laboratory Tests Test 11/07/16 21:17 11/08/16 04:20 11/08/16 08:31 Bedside Glucose 108 119 White Blood Count 0.7 #L Red Blood Count 3.12 #L Hemoglobin 9.1 #L Hematocrit 27.0 #L Mean Corpuscular Volume 86.5 Mean Corpuscular Hemoglobin 29.2 Mean Corpuscular Hemoglobin Concent 33.7 Red Cell Distribution Width 14.3 Platelet Count 77 #L Mean Platelet Volume 12.3 H Neutrophils % 43.0 Lymphocytes % 55.0 H Monocytes % 1.0 Eosinophils % 1.0 Basophils % Neutrophils # 0.3 L Lymphocytes # 0.4 L Monocytes # 0.0 L Eosinophils # 0.0 Basophils # Sodium Level 134 L Potassium Level 4.2 Chloride Level 102 Carbon Dioxide Level 22 Anion Gap 14 Blood Urea Nitrogen 20 Creatinine 0.42 L Glucose Level 184 Calcium Level 9.3 Magnesium Level 1.8 Albumin 2.7 L Medications Medications Current Medications Ondansetron HCl 4 mg 4 mg Q4H PRN IV NAUSEA AND/OR VOMITING Last administered on 11/08/16t 15:02; Admin Dose 4 MG; Start 10/17/16 at 19:00 Total Parenteral Nutrition (Tpn) 1,000 ml @ 100 mls/hr Q10H IV Last administered on 11/08/16 13:02; Admin Dose 100 MLS/HR; Start 10/19/16 at 18:30 Fentanyl (Duragesic 12 Mcg/Hr Patch) 1 patch Q72H TRANSDERM Last administered on 11/06/16 16:53; Admin Dose 1 PATCH; Start 10/19/16 at 18:30 Hydromorphone HCl (Dilaudid) 1 mg Q4H PRN IV BREAKTHROUGH PAIN Last administered on 11/08/16 15:02; Admin Dose 1 MG; Start 10/19/16 at 23:00 Lorazepam (Ativan) 0.5 mg Q8H PRN IV anxiety, insomnia Last administered on 15:24; Admin Dose 0.5 MG; Start 10/21/16 at 18:00 Diagnostic Test (Pha) (Accu-Chek) 1 ea Q12 XX Last administered on 11/08/16 08 :32; Admin Dose 1 EA; Start 10/22/16 at 09:00 Metoclopramide HCl (Reglan) 5 mg Q6 IV Last administered on 11/08/16 11:51; Admin Dose 5 MG; Start 10/23/16 at 00:00 Diphenhydramine HCl (Benadryl) 50 mg Q7D IV Last administered on 11/04/16 16: 41; Admin Dose 50 MG; Start 10/28/16 at 09:00; Stop 11/11/16 at 09:01 Famotidine 20 mg 20 mg Q7D IV Last administered on 11/04/16 16:41; Admin Dose 20 MG; Start 10/28/16 at 09:00; Stop 11/11/16 at 09:01 Dexamethasone/ Dextrose (Decadron/D5W) 55 ml @ 252 mls/hr Q7D IV Last administered on 11/04/16 16:38; Admin Dose 252 MLS/HR; Start 10/28/16 at 09:00; Stop 11/11/16 at 09:14 Dexamethasone (Decadron) 10 mg Q7D IV Last administered on 11/03/16 21:48; Admin Dose 10 MG; Start 10/27/16 at 22:00; Stop 11/10/16 at 22:01 Dexamethasone 10 mg 10 mg Q7D IV Last administered on 11/04/16 04:32; Admin Dose 10 MG; Start 10/28/16 at 04:00; Stop 11/11/16 at 04:01 Paclitaxel 84 mg/ Sodium Chloride 264 ml @ 88.333 mls/ hr Q7D IV Last administered on 11/04/16 17:21; Admin Dose 88.333 MLS/HR; Start 10/28/16 at 16: 30; Stop 11/11/16 at 19:30 Acetaminophen (Ofirmev 1000mg/ 100ml Iv) 65 ml @ 260 mls/hr Q14D IVPB Last administered on 10/29/16 12:22; Admin Dose 260 MLS/HR; Start 10/28/16 at 21:00; Stop 11/11/16 at 21:14 Diphenhydramine HCl 50 mg 50 mg Q14D IV Last administered on 10/29/16 12:22; Admin Dose 50 MG; Start 10/28/16 at 21:00; Stop 11/11/16 at 21:01 Ramucirumab/ Sodium Chloride (Cyramza/NS) 285.3 ml @ 250 mls/hr Q14D IV Last administered on 10/29/16 12:41; Admin Dose 250 MLS/HR; Start 10/28/16 at 22:00; Stop 11/11/16 at 23:09 Enalaprilat (Vasotec Iv) 0.625 mg Q4H PRN IV ELEVATED BLOOD PRESSURE Last administered on 11/07/16 13:38; Admin Dose 0.625 MG; Start 10/29/16 at 10:00 Clonidine HCl (Catapres-Tts 2 Patch) 1 patch Q7D TRANSDERM Last administered on 11/03/16 18:33; Admin Dose 1 PATCH; Start 11/03/16 at 18:30 Filgrastim (Neupogen) 480 mcg DAILY@17 SC Last administered on 11/07/16 17:24 ; Admin Dose 480 MCG; Start 11/06/16 at 17:00; Stop 11/10/16 at 17:00 Lidocaine 15 ml 15 ml QID PRN PO SORE THROAT; Start 11/08/16 at 14:00 Meropenem 100 ml @ 200 mls/hr Q8 IVPB ; Start 11/08/16 at 16:00 Fluconazole/ Sodium Chloride 50 ml @ 50 mls/hr Q24H IVPB ; Start 11/08/16 at 17: 00 Acetaminophen 100 ml @ 400 mls/hr Q6H PRN IVPB FEVER; Start 11/08/16 at 16:00 Vancomycin HCl 750 mg/Sodium Chloride 150 ml @ 75 mls/hr ONCE IVPB ; Start at 18:00; Stop 11/08/16 at 21:00 Vancomycin HCl (Vancocin) 100 ml @ 100 mls/hr Q12H IVPB ; Start 11/09/16 at 06: 00 ARI GARCIA MD November 08, 2016 16:03
--- NOTE | 2016-11-08 16:14 | PN ---
Date/Time of Note Date/Time of Note DATE: 11/07/16 TIME: 20:04 Assessment/Plan VTE Prophylaxis VTE Prophylaxis Intervention: contraindicated VTE Contraindication Reason: anticoagulation not tolerated Lines/Catheters IV Catheter Type (from Nrsg): port-a-cath Central line still needed: No Urinary Cath still in place: No Assessment/Plan Assessment/Plan 1. GASTRIC CA WITH METS/ DYSPHAGIA/ MALNUTRITION 2. S/P ISAMAR & PNEUMONIA 3. DEPRESSION ---PER ONC ---TPN ---CONT ALL SUPPORTIVE CARES Subjective 24 Hr Interval Summary Free Text/Dictation TIRED, AFRAID TO SWALLOW FOOD WITH PAIN ARI GARCIA MD November 08, 2016 16:14
[2016-11-08] MEDS: MEROPENEM 1 GM/100 ML (PMX) 100 ML IVPB SCH ×2 (17:05→22:09)
[2016-11-08] MEDS: FLUCONAZOLE 100 MG/NS (PMX) 50 ML IVPB SCH (17:40)
[2016-11-08] MEDS: FILGRASTIM 480 MCG INJ SC SCH (17:41)
[2016-11-08] MEDS ORDERED: VANCOMYCIN 750 MG in SOD CHLORIDE 0.9% 150 ML IVPB SCH (18:00)
[2016-11-08 20:05] VITALS: BP 137/63; RESP 18
[2016-11-09] MEDS: ACETAMINOPHEN 1000MG/100ML IV 65 ML IVPB SCH (03:57)
[2016-11-09 05:09] LABS: ADD SCAN DIFF NO
[2016-11-09] MEDS: TPN 1,000 ML IV SCH ×4 (05:10→18:06)
[2016-11-09] MEDS: METOCLOPRAMIDE 10 MG INJ IV SCH ×3 (05:12→17:45)
[2016-11-09] MEDS: MEROPENEM 1 GM/100 ML (PMX) 100 ML IVPB SCH ×3 (05:12→21:39)
[2016-11-09 05:13] LABS: ABNORMAL IP MESSAGE 1; HEMATOCRIT 28.4 % (37.0-47.0); HEMOGLOBIN 9.7 g/dl (12.0-16.0); MEAN CORPUSCULAR HEMOGLOBIN 29.1 pg (29.0-33.0); MEAN CORPUSCULAR HGB CONC 34.2 g/dl (32.0-37.0); MEAN CORPUSCULAR VOLUME 85.3 fl (82.0-101.0); MEAN PLATELET VOLUME 9.9 fl (7.4-10.4); RED BLOOD COUNT 3.33 10^6/ul (4.20-5.40); RED CELL DISTRIBUTION WIDTH 13.8 % (11.5-14.5); WHITE BLOOD COUNT 0.5 10^3/ul (4.8-10.8)
[2016-11-09 06:01] LABS: PLATELET COUNT 56 10^3/UL (140-415)
[2016-11-09] MEDS: VANCOMYCIN 500MG/NS (PMX) 100 ML IVPB SCH ×2 (06:14→19:07)
[2016-11-09 06:29] VITALS: BP 139/62; PULSE 67; RESP 20
[2016-11-09 07:58] VITALS: BP 126/60; RESP 20
[2016-11-09] MEDS: ONDANSETRON 4 MG INJ IV PRN ×2 (08:20→17:54)
[2016-11-09] MEDS: ACCU-CHEK XX SCH ×2 (09:00→21:02)
[2016-11-09 09:18] LABS: BURR CELLS 1+; LYMPHOCYTES # 0.4 10^3/ul (0.8-2.9); OVALOCYTES 1+
--- NOTE | 2016-11-09 09:38 | PN ---
DATE: 11/09/2016 HEMATOLOGY AND ONCOLOGY PROGRESS NOTE SUBJECTIVE: The patient is complaining of nausea and vomiting in spite of the fact that the NG tube is in place and draining. It is back to suction. The patient apparently did have some occlusion o f the NG tube yesterday. The patient is not complaining of mouth soreness. She has had no diarrhea. OBJECTIVE: VITAL SIGNS: Temperature 98.2, pulse 59, respirations 20, blood pressure 126/60, and pulse oximetry 100%. SKIN: No ecchymosis, no petechiae or rashes. HEENT: No mucosal lesions. No scleral icterus. There is an NG tube in place. NECK: Supple. No jugular venous distention or thyroid enlargement. CHEST: Clear to auscultation and percussion. No rhonchi, wheezes, rales, or rubs. There is a Port -A-Cath placed in the right anterior chest wall. HEART: Regular sinus rhythm, no acute ST changes or murmur. ABDOMEN: Soft except in the area of the left-sided stoma in which there is firmness superior and la teral to this stoma. No obvious ascites. No succussion splash. EXTREMITIES: No clubbing, edema, or cyanosis. No ____ or Homans sign. NEUROLOGIC: Normal. LABORATORY DATA: White count is only 500, hemoglobin 9.7, hematocrit 28.4, and platelet count is 56 ,000. Blood cultures obtained on November 08 are growing gram-positive cocci in pairs and chains. ASSESSMENT: 1. Gastric carcinoma with abdominal carcinomatosis. 2. Bowel obstruction secondary to #1. 3. Neutropenia secondary to chemotherapy. 4. Gram-positive bacteremia. PLAN: 1. The patient will continue on filgrastim. She is receiving 480 mcg daily. 2. The patient has also been started on vancomycin, meropenem, and fluconazole empirically. Before changing antibiotics, will wait for the results of the positive blood cultures reported this inez hodgson Dictated By: RADHA RODRIGUES MD SR/NTS Conf#: [id number] DID#: [id number]
--- NOTE | 2016-11-09 13:00 | CONS ---
Date/Time of Note Date/Time of Note DATE: 11/09/16 TIME: 12:57 Assessment/Plan Assessment/Plan Chief Complaint/Hosp Course SUBJECTIVE: Alert, c/o nausea, looks comfortable, afebrile INDWELLINGS: Right chest Port-A-Cath, and NG tube. Abx: Vancomycin, Merrem, Diflucan PHYSICAL EXAMINATION: GENERAL: This is a fragile, elderly [place] woman who is alert, in no distress. HEENT: Head atraumatic, normocephalic. Sclerae anicteric. Buccal mucosa pink. NECK: Supple. CHEST: Rise symmetrical. Breath sounds clear. HEART: S1, S2. ABDOMEN: Soft, bowel sounds present. EXTREMITIES: No cyanosis. ASSESSMENT: 1. Sepsis with GPC bacteremia==> r/o line sepsis 2. Neutropenia 3. Metastatic gastric CA with abdominal carcinomatosis. 4. Bowel obstruction 2 to #1. 5. Hypertension. 4. Cachexia 5. Status post pneumonia. PLAN: Clinically stable, continue abx, await for final cx, repeat bld cx from [facility], follow oncology recommendations DW staff DW Dr Ghosh Problems: Consultation Date/Type/Reason Admit Date/Time Oct 16, 2016 at 08:57 Type of Consultation: ID Referring Provider: KOBY FRANCO MD Exam/Review of Systems Vital Signs Vitals Vital Signs Date Time Temp Pulse Resp B/P Pulse Ox O2 Delivery O2 Flow Rate FiO2 11/09/16 07:58 98.2 59 20 126/60 100 11/09/16 06:29 Room Air Intake and Output 11/08/16 11/08/16 11/09/16 15:00 23:00 07:00 Intake Total 650 ml 750 ml 1000 ml Output Total 900 ml 1150 ml Balance 650 ml -150 ml -150 ml Results Result Diagram: 11/09/16 0450 11/08/16 0420 Results 24 hrs Laboratory Tests Test 11/08/16 20:21 11/09/16 04:50 Bedside Glucose 105 White Blood Count 0.5 #L Red Blood Count 3.33 L Hemoglobin 9.7 L Hematocrit 28.4 L Mean Corpuscular Volume 85.3 Mean Corpuscular Hemoglobin 29.1 Mean Corpuscular Hemoglobin Concent 34.2 Red Cell Distribution Width 13.8 Platelet Count 56 #L Mean Platelet Volume 9.9 Neutrophils % 3.0 L Band Neutrophils % 6.0 H Lymphocytes % 88.0 H Monocytes % 3.0 Eosinophils % Basophils % Neutrophils # 0.0 L Lymphocytes # 0.4 L Monocytes # 0.0 L Eosinophils # Basophils # Ovalocytes 1+ Medications Medications Current Medications Ondansetron HCl 4 mg 4 mg Q4H PRN IV NAUSEA AND/OR VOMITING Last administered on 11/09/16 08:20; Admin Dose 4 MG; Start 10/17/16 at 19:00 Total Parenteral Nutrition (Tpn) 1,000 ml @ 100 mls/hr Q10H IV Last administered on 11/09/16 08:20; Admin Dose 100 MLS/HR; Start 10/19/16 at 18:30 Fentanyl (Duragesic 12 Mcg/Hr Patch) 1 patch Q72H TRANSDERM Last administered on 11/06/16 16:53; Admin Dose 1 PATCH; Start 10/19/16 at 18:30 Hydromorphone HCl (Dilaudid) 1 mg Q4H PRN IV BREAKTHROUGH PAIN Last administered on 11/08/16 15:02; Admin Dose 1 MG; Start 10/19/16 at 23:00 Lorazepam (Ativan) 0.5 mg Q8H PRN IV anxiety, insomnia Last administered on 15:24; Admin Dose 0.5 MG; Start 10/21/16 at 18:00 Diagnostic Test (Pha) (Accu-Chek) 1 ea Q12 XX Last administered on 11/09/16 09 :00; Admin Dose 1 EA; Start 10/22/16 at 09:00 Metoclopramide HCl (Reglan) 5 mg Q6 IV Last administered on 11/09/16 12:53; Admin Dose 5 MG; Start 10/23/16 at 00:00 Diphenhydramine HCl (Benadryl) 50 mg Q7D IV Last administered on 11/04/16 16: 41; Admin Dose 50 MG; Start 10/28/16 at 09:00; Stop 11/11/16 at 09:01 Famotidine 20 mg 20 mg Q7D IV Last administered on 11/04/16 16:41; Admin Dose 20 MG; Start 10/28/16 at 09:00; Stop 11/11/16 at 09:01 Dexamethasone/ Dextrose (Decadron/D5W) 55 ml @ 252 mls/hr Q7D IV Last administered on 11/04/16 16:38; Admin Dose 252 MLS/HR; Start 10/28/16 at 09:00; Stop 11/11/16 at 09:14 Dexamethasone (Decadron) 10 mg Q7D IV Last administered on 11/03/16 21:48; Admin Dose 10 MG; Start 10/27/16 at 22:00; Stop 11/10/16 at 22:01 Dexamethasone 10 mg 10 mg Q7D IV Last administered on 11/04/16 04:32; Admin Dose 10 MG; Start 10/28/16 at 04:00; Stop 11/11/16 at 04:01 Paclitaxel 84 mg/ Sodium Chloride 264 ml @ 88.333 mls/ hr Q7D IV Last administered on 11/04/16 17:21; Admin Dose 88.333 MLS/HR; Start 10/28/16 at 16: 30; Stop 11/11/16 at 19:30 Acetaminophen (Ofirmev 1000mg/ 100ml Iv) 65 ml @ 260 mls/hr Q14D IVPB Last administered on 11/09/16 03:57; Admin Dose 260 MLS/HR; Start 10/28/16 at 21:00; Stop 11/11/16 at 21:14 Diphenhydramine HCl 50 mg 50 mg Q14D IV Last administered on 10/29/16 12:22; Admin Dose 50 MG; Start 10/28/16 at 21:00; Stop 11/11/16 at 21:01 Ramucirumab/ Sodium Chloride (Cyramza/NS) 285.3 ml @ 250 mls/hr Q14D IV Last administered on 10/29/16 12:41; Admin Dose 250 MLS/HR; Start 10/28/16 at 22:00; Stop 11/11/16 at 23:09 Enalaprilat (Vasotec Iv) 0.625 mg Q4H PRN IV ELEVATED BLOOD PRESSURE Last administered on 11/07/16 13:38; Admin Dose 0.625 MG; Start 10/29/16 at 10:00 Clonidine HCl (Catapres-Tts 2 Patch) 1 patch Q7D TRANSDERM Last administered on 11/03/16 18:33; Admin Dose 1 PATCH; Start 11/03/16 at 18:30 Filgrastim (Neupogen) 480 mcg DAILY@17 SC Last administered on 11/08/16 17:41 ; Admin Dose 480 MCG; Start 11/06/16 at 17:00; Stop 11/10/16 at 17:00 Lidocaine 15 ml 15 ml QID PRN PO SORE THROAT; Start 11/08/16 at 14:00 Meropenem 100 ml @ 200 mls/hr Q8 IVPB Last administered on 11/09/16 05:12; Admin Dose 200 MLS/HR; Start 11/08/16 at 16:00 Fluconazole/ Sodium Chloride 50 ml @ 50 mls/hr Q24H IVPB Last administered on 17:40; Admin Dose 50 MLS/HR; Start 11/08/16 at 17:00 Acetaminophen 100 ml @ 400 mls/hr Q6H PRN IVPB FEVER Last administered on 11/08 16:02; Admin Dose 400 MLS/HR; Start 11/08/16 at 16:00 Vancomycin HCl (Vancocin) 100 ml @ 100 mls/hr Q12H IVPB Last administered on 06:14; Admin Dose 100 MLS/HR; Start 11/09/16 at 06:00 Miscellaneous Information (*Rx Drug Level Order Reminder*) VANCOMYCIN TROUGH AT 0500 ONCE ONCE XX ; Start 11/10/16 at 05:00; Stop 11/10/16 at 05:01 KJ HUYNH NP November 09, 2016 13:00
[2016-11-09] MEDS: HYDROmorphONE 1 MG/ML SYG IV PRN ×2 (13:58→18:02)
--- NOTE | 2016-11-09 14:03 | RADRPT ---
PROCEDURE: XR Chest. CLINICAL INDICATION: Shortness of breath. TECHNIQUE: Single frontal view. COMPARISON: 11/06/2016. FINDINGS: The nasogastric tube and right internal jugular vein Port-A-Cath remain in satisfactory position. T here is air space disease at the left lung base medially consistent with pneumonia. The lungs are o therwise clear. The heart size is normal. There is calcification in the aorta consistent with atherosclerosis. There is no right pleural effusion. There is a small left pleural effusion. There is no pneumothorax. IMPRESSION: 1. Nasogastric tube and Port-A-Cath in satisfactory position. 2. Left basilar pneumonia. 3. Atherosclerosis. 4. Small left pleural effusion. RPTAT: QQ .Roberto Carrizales MD, MD Date Time Electronically viewed and signed by .Roberto Carrizales MD, MD on 11/09/2016 14:03 .R/
[2016-11-09] MEDS: FLUCONAZOLE 100 MG/NS (PMX) 50 ML IVPB SCH (17:45)
[2016-11-09] MEDS: FILGRASTIM 480 MCG INJ SC SCH (17:46)
[2016-11-09 20:35] VITALS: BP 132/63; RESP 18
[2016-11-09] MEDS: FENTAnyl PATCH 12 MCG/HR TRANSDERM SCH (21:04)
--- NOTE | 2016-11-09 23:35 | PN ---
DATE: 11/09/2016 SUBJECTIVE: The patient is awake and alert, reports that she had a fever over the weekend and was s tarted on IV antibiotics. The only new symptom she had was a sore throat and a cough productive of some thick phlegm which occasionally caused her to be nauseous. Her abdominal pain is not bothersom e. OBJECTIVE: VITAL SIGNS: Temperature 98.2, blood pressure 126/60, pulse of 59, respiration rate 20. O2 saturat ion is 100% on room air. HEENT: Pupils equally round, reactive to light. Left nasogastric tube. Oropharynx erythema. NECK: No nodes, no goiter. LUNGS: Clear to auscultation anteriorly. Minimal crackles at the bases posteriorly. CARDIAC: A III/ systolic murmur. Regular rate and rhythm. ABDOMEN: Active bowel sounds. Soft, nontender. EXTREMITIES: No clubbing, cyanosis or edema. LABORATORY DATA: WBC 0.5, hemoglobin 9.7, hematocrit 28.4, platelet count 56,000. Blood cultures: One out of 2 positive for gram-positive cocci in pairs and chains. Urine culture is negative after 24 hours. IMAGING: Chest x-ray shows a left basilar pneumonia as well as atherosclerosis and small left pleur al effusion. ASSESSMENT AND PLAN: 1. Sepsis with gram-positive cocci bacteremia, may be coming from the pharyngitis, line sepsis or t he left basilar pneumonia. Continue broad spectrum coverage with vancomycin, Merrem and Diflucan, f ollowing infectious disease recommendation. 2. Neutropenia, thrombocytopenia and anemia. Continue to monitor and treat with Neupogen and trans fusion as needed. 3. Metastatic gastric cancer. The patient is due for another course of treatment on Wednesday, but the progression of treatment depends on oncology evaluation. Dictated By: KOBY FRANCO MD DP/NTS Conf#: [id number] DID#: [id number]
[2016-11-10] MEDS: METOCLOPRAMIDE 10 MG INJ IV SCH ×5 (00:14→23:47)
[2016-11-10] MEDS: ACETAMINOPHEN 1000MG/100ML IV 100 ML IVPB PRN ×3 (00:24→17:18)
[2016-11-10] MEDS: MEROPENEM 1 GM/100 ML (PMX) 100 ML IVPB SCH ×3 (05:00→20:50)
[2016-11-10 06:01] LABS: ADD SCAN DIFF NO; CALCIUM 7.8 mg/dl (8.4-10.2); CREATININE 0.47 mg/dl (0.44-1.00); PHOSPHORUS 2.3 mg/dl (2.5-4.9); POTASSIUM 3.7 mmol/L (3.5-5.1)
[2016-11-10 06:07] LABS: ABNORMAL IP MESSAGE 1; HEMATOCRIT 23.7 % (37.0-47.0); HEMOGLOBIN 7.7 g/dl (12.0-16.0); MEAN CORPUSCULAR HEMOGLOBIN 28.3 pg (29.0-33.0); MEAN CORPUSCULAR HGB CONC 32.5 g/dl (32.0-37.0); MEAN CORPUSCULAR VOLUME 87.1 fl (82.0-101.0); MEAN PLATELET VOLUME 12.4 fl (7.4-10.4); PLATELET COUNT 53 10^3/UL (140-415); RED BLOOD COUNT 2.72 10^6/ul (4.20-5.40); RED CELL DISTRIBUTION WIDTH 14.3 % (11.5-14.5); WHITE BLOOD COUNT 0.6 10^3/ul (4.8-10.8)
[2016-11-10] MEDS: VANCOMYCIN 500MG/NS (PMX) 100 ML IVPB SCH ×3 (06:47→21:40)
[2016-11-10] MEDS: TPN 1,000 ML IV SCH ×2 (08:09→20:10)
[2016-11-10 08:13] VITALS: BP 147/66; RESP 16
[2016-11-10] MEDS: ACCU-CHEK XX SCH ×2 (09:48→20:24)
[2016-11-10 10:29] LABS: LYMPHOCYTES # 0.4 10^3/ul (0.8-2.9); NEUTROPHIL # 0.1 10^3/ul (1.6-7.5)
[2016-11-10 10:31] LABS: PLATELET ESTIMATE PLT APPEAR DECREASED
--- NOTE | 2016-11-10 11:54 | CONS ---
Date/Time of Note Date/Time of Note DATE: 11/10/16 TIME: 11:50 Assessment/Plan Assessment/Plan Chief Complaint/Hosp Course SUBJECTIVE: Alert, c/o sore throat, looks comfortable, afebrile INDWELLINGS: Right chest Port-A-Cath, and NG tube. Abx: Vancomycin, Merrem, Diflucan PHYSICAL EXAMINATION: GENERAL: This is a fragile, elderly [place] woman who is alert, in no distress. HEENT: Head atraumatic, normocephalic. Sclerae anicteric. Buccal mucosa dry. NECK: Supple. CHEST: Rise symmetrical. Breath sounds clear. HEART: S1, S2. ABDOMEN: Soft, bowel sounds present. EXTREMITIES: No cyanosis. ASSESSMENT: 1. Sepsis with Strep bacteremia==> r/o line sepsis 2. Neutropenia 3. Metastatic gastric CA with abdominal carcinomatosis. 4. Bowel obstruction 2 to #1. 5. Hypertension. 4. Cachexia 5. Pneumonia. PLAN: Clinically stable, continue abx, await for repeat bld cx form [facility], follow oncology recommendations, continue viscous Lidocaine DW staff/pt Problems: Consultation Date/Type/Reason Admit Date/Time Oct 16, 2016 at 08:57 Type of Consultation: ID Referring Provider: KOBY FRANCO MD Exam/Review of Systems Vital Signs Vitals Vital Signs Date Time Temp Pulse Resp B/P Pulse Ox O2 Delivery O2 Flow Rate FiO2 11/10/16 08:13 97.6 63 16 147/66 100 11/09/16 06:29 Room Air Intake and Output 11/09/16 11/09/16 11/10/16 15:00 23:00 07:00 Intake Total 300 ml 1200 ml 1200 ml Output Total 1050 ml 750 ml Balance 300 ml 150 ml 450 ml Results Result Diagram: 11/10/16 0425 11/10/16 0425 Results 24 hrs Laboratory Tests Test 11/09/16 21:02 11/10/16 04:25 11/10/16 08:55 Bedside Glucose 108 103 White Blood Count 0.6 L Red Blood Count 2.72 L Hemoglobin 7.7 #L Hematocrit 23.7 L Mean Corpuscular Volume 87.1 Mean Corpuscular Hemoglobin 28.3 L Mean Corpuscular Hemoglobin Concent 32.5 Red Cell Distribution Width 14.3 Platelet Count 53 L Mean Platelet Volume 12.4 #H Neutrophils % 13.0 L Band Neutrophils % 4.0 Lymphocytes % 72.0 H Reactive Lymphocytes % 1.0 Monocytes % 5.0 Eosinophils % 3.0 Basophils % 2.0 Neutrophils # 0.1 L Lymphocytes # 0.4 L Monocytes # 0.0 L Eosinophils # 0.0 Basophils # 0.0 Platelet Estimate PLT APPEAR DECREASED Sodium Level 131 L Potassium Level 3.7 Chloride Level 103 Carbon Dioxide Level 24 Anion Gap 8 Blood Urea Nitrogen 26 H Creatinine 0.47 Glucose Level 108 Calcium Level 7.8 L Phosphorus Level 2.3 L Magnesium Level 2.0 Vancomycin Level Trough 5.8 L Medications Medications Current Medications Ondansetron HCl 4 mg 4 mg Q4H PRN IV NAUSEA AND/OR VOMITING Last administered on 11/09/16 17:54; Admin Dose 4 MG; Start 10/17/16 at 19:00 Total Parenteral Nutrition (Tpn) 1,000 ml @ 100 mls/hr Q10H IV Last administered on 11/09/16 05:10; Admin Dose 100 MLS/HR; Start 10/19/16 at 18:30 Fentanyl (Duragesic 12 Mcg/Hr Patch) 1 patch Q72H TRANSDERM Last administered on 11/09/16 21:04; Admin Dose 1 PATCH; Start 10/19/16 at 18:30 Hydromorphone HCl (Dilaudid) 1 mg Q4H PRN IV BREAKTHROUGH PAIN Last administered on 11/09/16 18:02; Admin Dose 1 MG; Start 10/19/16 at 23:00 Lorazepam (Ativan) 0.5 mg Q8H PRN IV anxiety, insomnia Last administered on 15:24; Admin Dose 0.5 MG; Start 10/21/16 at 18:00 Diagnostic Test (Pha) (Accu-Chek) 1 ea Q12 XX Last administered on 11/10/16 09 :48; Admin Dose 1 EA; Start 10/22/16 at 09:00 Metoclopramide HCl (Reglan) 5 mg Q6 IV Last administered on 11/10/16 05:47; Admin Dose 5 MG; Start 10/23/16 at 00:00 Diphenhydramine HCl (Benadryl) 50 mg Q7D IV Last administered on 11/04/16 16: 41; Admin Dose 50 MG; Start 10/28/16 at 09:00; Stop 11/11/16 at 09:01 Famotidine 20 mg 20 mg Q7D IV Last administered on 11/04/16 16:41; Admin Dose 20 MG; Start 10/28/16 at 09:00; Stop 11/11/16 at 09:01 Dexamethasone/ Dextrose (Decadron/D5W) 55 ml @ 252 mls/hr Q7D IV Last administered on 11/04/16 16:38; Admin Dose 252 MLS/HR; Start 10/28/16 at 09:00; Stop 11/11/16 at 09:14 Dexamethasone (Decadron) 10 mg Q7D IV Last administered on 11/03/16 21:48; Admin Dose 10 MG; Start 10/27/16 at 22:00; Stop 11/10/16 at 22:01 Dexamethasone 10 mg 10 mg Q7D IV Last administered on 11/04/16 04:32; Admin Dose 10 MG; Start 10/28/16 at 04:00; Stop 11/11/16 at 04:01 Paclitaxel 84 mg/ Sodium Chloride 264 ml @ 88.333 mls/ hr Q7D IV Last administered on 11/04/16 17:21; Admin Dose 88.333 MLS/HR; Start 10/28/16 at 16: 30; Stop 11/11/16 at 19:30 Acetaminophen (Ofirmev 1000mg/ 100ml Iv) 65 ml @ 260 mls/hr Q14D IVPB Last administered on 11/09/16 03:57; Admin Dose 260 MLS/HR; Start 10/28/16 at 21:00; Stop 11/11/16 at 21:14 Diphenhydramine HCl 50 mg 50 mg Q14D IV Last administered on 10/29/16 12:22; Admin Dose 50 MG; Start 10/28/16 at 21:00; Stop 11/11/16 at 21:01 Ramucirumab/ Sodium Chloride (Cyramza/NS) 285.3 ml @ 250 mls/hr Q14D IV Last administered on 10/29/16 12:41; Admin Dose 250 MLS/HR; Start 10/28/16 at 22:00; Stop 11/11/16 at 23:09 Enalaprilat (Vasotec Iv) 0.625 mg Q4H PRN IV ELEVATED BLOOD PRESSURE Last administered on 11/07/16 13:38; Admin Dose 0.625 MG; Start 10/29/16 at 10:00 Clonidine HCl (Catapres-Tts 2 Patch) 1 patch Q7D TRANSDERM Last administered on 11/03/16 18:33; Admin Dose 1 PATCH; Start 11/03/16 at 18:30 Filgrastim (Neupogen) 480 mcg DAILY@17 SC Last administered on 11/09/16 17:46 ; Admin Dose 480 MCG; Start 11/06/16 at 17:00; Stop 11/10/16 at 17:00 Lidocaine 15 ml 15 ml QID PRN PO SORE THROAT; Start 11/08/16 at 14:00 Meropenem 100 ml @ 200 mls/hr Q8 IVPB Last administered on 11/10/16 05:00; Admin Dose 200 MLS/HR; Start 11/08/16 at 16:00 Fluconazole/ Sodium Chloride 50 ml @ 50 mls/hr Q24H IVPB Last administered on 17:45; Admin Dose 50 MLS/HR; Start 11/08/16 at 17:00 Acetaminophen 100 ml @ 400 mls/hr Q6H PRN IVPB FEVER Last administered on 11/10 08:54; Admin Dose 400 MLS/HR; Start 11/08/16 at 16:00 Vancomycin HCl (Vancocin) 100 ml @ 100 mls/hr Q8H IVPB ; Start 11/10/16 at 14: 00 Miscellaneous Information (*Rx Drug Level Order Reminder*) ONCE ONCE XX ; Start 11/11/16 at 13:00; Stop 11/11/16 at 13:01 KJ HUYNH NP November 10, 2016 11:54
[2016-11-10] MEDS ORDERED: VANCOMYCIN 1 GM in NS 250 ML IVPB SCH (12:00)
[2016-11-10] MEDS: FLUCONAZOLE 100 MG/NS (PMX) 50 ML IVPB SCH (17:18)
[2016-11-10] MEDS: FILGRASTIM 480 MCG INJ SC SCH (17:19)
[2016-11-10] MEDS: CLONIDINE 0.2 MG/24 HR PATCH TRANSDERM SCH (17:21)
[2016-11-10 20:10] VITALS: BP 113/57; RESP 20
[2016-11-10] MEDS ORDERED: DIPHENHYDRAMINE 50 MG INJ IV ONE (21:30)
[2016-11-10] MEDS ORDERED: ACETAMINOPHEN 1000MG/100ML IV 100 ML IVPB ONE (21:30)
--- NOTE | 2016-11-10 21:32 | PN ---
DATE: 11/10/2016 SUBJECTIVE: The patient is not complaining of abdominal pain at this time. She was given ice cream , which she was able to swallow and did not have nausea as long as the suction was on. The patient does not report any shaking chills. No mouth soreness. OBJECTIVE: GENERAL: The patient is well-developed, chronically ill-appearing female who is in no acute distres s. VITAL SIGNS: Temperature 97.6, pulse 64 per minute and regular, respirations 16, blood pressure 145 /66, pulse oximetry 90% on 2 L of oxygen. SKIN: No ecchymosis. No petechiae, rashes. HEENT: No mucosal lesions. No scleral icterus. There is an NG tube in place which is attached to suction. NECK: Supple. No jugular venous distention or thyroid enlargement. CHEST: Clear to auscultation, percussion. No rhonchi, wheezes, rales or rubs. There is a Port-A-C ath in place in the right anterior chest which has been accessed. HEART: Regular sinus rhythm. No S3, S4 or murmurs. ABDOMEN: Soft except for the firmness surrounding the stoma on the left side. No succussion splash . EXTREMITIES: No clubbing, edema or cyanosis. No palpable cords or Homans sign. NEUROLOGIC: Normal. LABORATORY: White count 600, hemoglobin 7.7, hematocrit 23.7, and platelet count is 53,000. Sodium 131, potassium 3.7, BUN 26, creatinine 0.47, calcium 7.8. Chest x-ray done on 11/06 suggests a possible left basilar pneumonia and a small left pleural effusi on. Blood culture: Positive blood culture of 11/08/2016 is an alpha-hemolytic strep, i.e., Strep virida ns. Two blood cultures from 11/09 and one from 11/08 are no growth. ASSESSMENT: 1. Gastric carcinoma with abdominal carcinomatosis. 2. Bowel obstruction secondary to #1. 3. Neutropenia secondary to chemotherapy. 4. Gram-positive bacteremia ____ Streptococcus viridans. Will resume filgrastim 480 mcg daily. The patient continues on vancomycin, meropenem and fluconazol e. The patient was to receive chemotherapy tomorrow with paclitaxel and Cyramza. However, these will b e held because of the patient's neutropenia. Dictated By: RADHA RODRIGUES MD, SR/OH Conf#: [id number] DID#: [id number]
[2016-11-10] MEDS: ONDANSETRON 4 MG INJ IV PRN (22:52)
[2016-11-11] VITALS (8 sets, daily range): BP systolic 116–188; BP diastolic 57–83; PULSE 51–58; RESP 16–18
--- NOTE | 2016-11-11 00:06 | PN ---
DATE: 11/10/2016 SUBJECTIVE: The patient still has intermittent nausea, but would like to eat something more solid t guadalupe clear liquids. OBJECTIVE: VITAL SIGNS: Temperature 98.0, blood pressure 113/57, pulse 63, respiration rate 20, O2 saturation 97% to 100% on room air. HEENT: Pupils equally round, reactive to light. Anicteric sclerae. Oropharynx clear. Left nasoga stric tube draining dark green bilious discharge mixed with small amount of blood. CHEST: Lungs are clear to auscultation anteriorly. CARDIAC: II/ heart murmur. ABDOMEN: Active bowel sounds. Mild diffuse tenderness. Left ileostomy. EXTREMITIES: No clubbing, cyanosis, or edema. LABORATORY DATA: WBC 0.6, hemoglobin 7.7, hematocrit 23.7, platelet count is 53,000. Sodium 131, p otassium 3.7, BUN 27, creatinine 0.47, glucose 108. The blood culture is growing 1/2 bottles with a lpha hemolytic Strep viridans. ASSESSMENT AND PLAN: 1. Metastatic gastric carcinoma. The patient with marked neutropenia, anemia, and thrombocytopenia following first 2 weeks dosing of chemotherapy. Further chemotherapy treatment may need to be held . I will check with Dr. Henderson for further treatment plan. 2. Sepsis. May be due to sore throat or line sepsis or lung pneumonia. Continue current antibioti c. 3. Nausea and vomiting. Continue NG tube suction for symptomatic relief. We will give the patient some ice cream for oral gratification. Continue TPN for nutrition. Dictated By: KOBY FRANCO MD DP/OH Conf#: [id number] DID#: [id number]
[2016-11-11] MEDS: TPN 1,000 ML IV SCH ×3 (04:09→21:34)
[2016-11-11 05:14] LABS: ADD SCAN DIFF NO
[2016-11-11 05:24] LABS: ABNORMAL IP MESSAGE 1; HEMATOCRIT 34.7 % (37.0-47.0); HEMOGLOBIN 11.5 g/dl (12.0-16.0); MEAN CORPUSCULAR HEMOGLOBIN 28.7 pg (29.0-33.0); MEAN CORPUSCULAR HGB CONC 33.1 g/dl (32.0-37.0); MEAN CORPUSCULAR VOLUME 86.5 fl (82.0-101.0); MEAN PLATELET VOLUME 12.5 fl (7.4-10.4); PLATELET COUNT 78 10^3/UL (140-415); RED BLOOD COUNT 4.01 10^6/ul (4.20-5.40); RED CELL DISTRIBUTION WIDTH 14.2 % (11.5-14.5); WHITE BLOOD COUNT 1.4 10^3/ul (4.8-10.8)
[2016-11-11 05:39] LABS: CREATININE 0.42 mg/dl (0.44-1.00); MAGNESIUM 1.9 mg/dl (1.7-2.5)
[2016-11-11] MEDS: MEROPENEM 1 GM/100 ML (PMX) 100 ML IVPB SCH ×3 (05:48→21:04)
[2016-11-11] MEDS: METOCLOPRAMIDE 10 MG INJ IV SCH ×3 (05:48→18:35)
[2016-11-11] MEDS: PANTOPRAZOLE 40 MG INJ IV SCH ×2 (05:48→18:35)
[2016-11-11] MEDS: VANCOMYCIN 500MG/NS (PMX) 100 ML IVPB SCH ×2 (06:23→14:25)
[2016-11-11] MEDS: ACCU-CHEK XX SCH ×2 (09:34→21:33)
[2016-11-11] MEDS: FAMOTIDINE 20 MG INJ IV SCH (09:35)
[2016-11-11] MEDS: ACETAMINOPHEN 1000MG/100ML IV 100 ML IVPB PRN (09:38)
[2016-11-11] MEDS: ONDANSETRON 4 MG INJ IV PRN (09:38)
--- NOTE | 2016-11-11 10:25 | PN ---
DATE: 11/11/2016 SUBJECTIVE: The patient still has episodes of nausea. Does not actually complain of abdominal pain . No mouth soreness. No shaking chills. OBJECTIVE GENERAL: Well-developed, thin, chronically ill-appearing female. VITAL SIGNS: Temperature 97.8, pulse 70 per minute and regular, respirations 16, blood pressure 188 /83, pulse oximetry 98% on room air. SKIN: No ecchymoses, no petechiae or rashes. HEENT: No mucosal lesions. No scleral icterus. There is an NG tube in place. The pupils are equa l, round, react to light and accommodation. NECK: Supple, no jugular venous distention or thyroid enlargement. CHEST: Clear to auscultation and percussion. No rhonchi, wheezes, rales or rubs. NODES: No palpa ble adenopathy in any lymph node-bearing area. ABDOMEN: No masses, skin retraction, nipple inversion. It should be noted that there is a Port-A-C ath in place in the right anterior chest which has been accessed. No erythema. NODES: No palpable lymphadenopathy in lymph node bearing area. ABDOMEN: Soft except for some firmness in the area of the stoma in the left upper abdomen. No dist inct mass edges. No ascites. No succussion splash. EXTREMITIES: No clubbing, no edema or cyanosis. No palpable cords or Homans sign. NEUROLOGIC: Normal. LABORATORIES: White count 1400, hemoglobin 11.5, hematocrit 34.7 and platelet count 78,000. Sodium 135, potassium 4, BUN 22, creatinine 0.42. ASSESSMENT: 1. Gastric carcinoma with abdominal carcinomatosis. 2. Bowel obstruction secondary to #1. 3. Gram-positive bacteremia alpha Streptococcus. 4. Neutropenia secondary to chemotherapy, improving. PLAN: 1. The patient will continue on filgrastim 480 mcg per day. She seems to now be responding. Mauro kessler in general is responding and his platelet count is beginning interval increase as well. Will cont inue on antibiotics as noted. 2. The patient will continue, however, to hold any chemotherapy at this time including the patient' s Cyramza. 3. The patient continues to have nausea in spite of the fact that the NG tube is connected to sucti on continuously. I am concerned that perhaps the NG tube does not extend far enough into the stomac h and therefore there is an accumulation of gastric fluid to a greater volume than necessary. We wi ll request that an abdominal film be done to try and locate the location of the distal end of the NG tube. Dictated By: RADHA RODRIGUES MD, SR/OH Conf#: [id number] DID#: [id number]
--- NOTE | 2016-11-11 10:49 | RADRPT ---
PROCEDURE: XR Abdomen. CLINICAL INDICATION: Nausea vomiting TECHNIQUE: AP abdomen x-ray. COMPARISON: None. FINDINGS: The bowel gas pattern is normal. There is no evidence of obstruction. There are no abnormal calcific ations overlying the urinary tracts. The osseus structures are unremarkable. NG tube tip overlying the fundus of the stomach with side po rt at the gastroesophageal junction. Left lower quadrant ostomy. IMPRESSION: Unremarkable abdomen radiograph. NG tube tip overlying the fundus of the stomach with side port at t he gastroesophageal junction. RPTAT:AAJJ Physician Olga Lidia Date Time Electronically viewed and signed by Physician Olga Lidia on 11/11/2016 10:48 MAGUE/
[2016-11-11] MEDS ORDERED: SODIUM PHOSPHATE 15 MMOL in SOD CHLORIDE 0.9% 250 ML IV SCH (11:00)
[2016-11-11 11:52] LABS: BURR CELLS FEW; TOXIC GRANULATION FEW
[2016-11-11 11:53] LABS: EOSINOPHILS # 0.1 10^3/ul (0.0-0.5); LYMPHOCYTES # 0.5 10^3/ul (0.8-2.9); MONOCYTE # 0.3 10^3/ul (0.3-0.9); NEUTROPHIL # 0.4 10^3/ul (1.6-7.5)
--- NOTE | 2016-11-11 14:27 | PN ---
DATE: INFECTIOUS DISEASE PROGRESS NOTE SUBJECTIVE: The patient is awake, very weak, looks comfortable. No fevers. LABORATORY DATA: WBC 1.4, platelets 78, BUN 22, creatinine 0.42. MICROBIOLOGY: Blood culture on 11/08/2016 grew alpha hemolytic strep species. Repeat blood culture is negative. DIAGNOSTICS: X-ray of the abdomen this morning was unremarkable. ANTIMICROBIALS: The patient is on 1. IV vancomycin. 2. Fluconazole. 3. Meropenem. INDWELLINGS: Right chest Port-A-Cath and NG tube. OBJECTIVE: GENERAL: This is a cachectic, well-developed, elderly woman who is very weak but awake and follows commands. HEENT: Atraumatic, normocephalic. Sclerae anicteric. Buccal mucosa dry. NECK: Supple. CHEST: Rise symmetrical. Breath sounds diminished. HEART: S1, S2. ABDOMEN: Soft, bowel sounds present. EXTREMITIES: No cyanosis. ASSESSMENT: 1. Sepsis with streptococcal bacteremia, possibly line sepsis versus secondary to pneumonia. 2. Healthcare-associated pneumonia. 3. Metastatic gastric carcinoma with abdominal carcinomatosis. 4. Bowel obstruction secondary to above. 5. Cachexia. PLAN: The patient remained stable. She is getting Neupogen daily. Chemotherapy currently on hold. We will repeat a chest x-ray in a.m. Dictated By: DIEGO HODGE/[place] Conf#: [id number] DID#: [id number]
[2016-11-11] MEDS: FILGRASTIM 480 MCG INJ SC SCH (18:36)
[2016-11-11] MEDS: FLUCONAZOLE 100 MG/NS (PMX) 50 ML IVPB SCH (19:50)
[2016-11-11] MEDS: ACETAMINOPHEN 1000MG/100ML IV 65 ML IVPB SCH (20:03)
[2016-11-11] MEDS: VANCOMYCIN 750 MG in SOD CHLORIDE 0.9% 150 ML IVPB SCH (22:22)
[2016-11-12] MEDS: METOCLOPRAMIDE 10 MG INJ IV SCH ×5 (00:16→23:38)
[2016-11-12 00:20] VITALS: BP 146/63; PULSE 76
[2016-11-12] MEDS: ACETAMINOPHEN 1000MG/100ML IV 100 ML IVPB PRN (02:29)
--- NOTE | 2016-11-12 03:39 | PN ---
DATE: 11/11/2016 SUBJECTIVE: Patient is awake and alert. Reports that she still has intermittent nausea and is a li ttle bit worse after she eats. OBJECTIVE: VITAL SIGNS: Temperature 98.2, blood pressure 150/63, pulse of 69, respiration rate 18, O2 saturati on 96% on room air. HEENT: Pupils equally round, reactive to light. Oropharynx clear. CHEST: Mild bibasilar crackles. CARDIAC: Has a III/ systolic murmur. ABDOMEN: Nontender, nondistended. EXTREMITIES: No clubbing, cyanosis, or edema. LABORATORY DATA: WBC is 1.4 today, hemoglobin 11.5, hematocrit 34.7, platelet count 78,000. Sodium is 135, potassium 4.0, BUN 22, creatinine 0.42, glucose 108, calcium is 8.0, phosphorus is 2.0, mag nesium 1.9. Her prealbumin is 7.4. ASSESSMENT AND PLAN: 1. Leukocytosis, anemia and thrombocytopenia gradually improving. Will hold chemotherapy at this t donal per oncologist's plan until her blood counts look better. 2. Septicemia with pneumonia. Continue current broad spectrum antibiotics. 3. Hyponatremia and hypophosphatemia. Replace with sodium phosphorus IV. 4. Nausea and vomiting. Agree with Dr. Henderson's plan to recheck position of NG tube. If it is to o high, we will need to reposition the NG tube for better suction. Dictated By: KOBY FRANCO MD DP/NTS Conf#: [id number] DID#: [id number]
[2016-11-12] MEDS: MEROPENEM 1 GM/100 ML (PMX) 100 ML IVPB SCH (05:28)
[2016-11-12] MEDS: PANTOPRAZOLE 40 MG INJ IV SCH ×2 (05:28→18:29)
[2016-11-12 05:42] LABS: ADD SCAN DIFF NO
[2016-11-12 05:46] LABS: ABNORMAL IP MESSAGE 1; HEMATOCRIT 30.8 % (37.0-47.0); HEMOGLOBIN 10.5 g/dl (12.0-16.0); MEAN CORPUSCULAR HEMOGLOBIN 29.3 pg (29.0-33.0); MEAN CORPUSCULAR HGB CONC 34.1 g/dl (32.0-37.0); MEAN PLATELET VOLUME 11.4 fl (7.4-10.4); PLATELET COUNT 82 10^3/UL (140-415); RED BLOOD COUNT 3.58 10^6/ul (4.20-5.40); RED CELL DISTRIBUTION WIDTH 14.5 % (11.5-14.5); WHITE BLOOD COUNT 8.6 10^3/ul (4.8-10.8)
[2016-11-12 06:17] LABS: POTASSIUM 3.4 mmol/L (3.5-5.1)
[2016-11-12 06:20] LABS: ALBUMIN/GLOBULIN RATIO 0.76; BILIRUBIN,INDIRECT 0.7 mg/dl (0-1.1); BILIRUBIN,TOTAL 0.7 mg/dl (0.2-1.3); CREATININE 0.45 mg/dl (0.44-1.00); TOTAL PROTEIN 4.6 g/dl (6.1-8.1)
[2016-11-12 06:21] LABS: CALCIUM 7.6 mg/dl (8.4-10.2); MAGNESIUM 1.9 mg/dl (1.7-2.5); PHOSPHORUS 1.8 mg/dl (2.5-4.9)
[2016-11-12] MEDS: VANCOMYCIN 750 MG in SOD CHLORIDE 0.9% 150 ML IVPB SCH (06:25)
[2016-11-12 06:38] LABS: CARCINOEMBRYONIC ANTIGEN 2.8 ng/ml (0.0-5.0)
[2016-11-12 08:15] VITALS: BP 120/58; RESP 18
[2016-11-12] MEDS: TPN 1,000 ML IV SCH ×3 (08:27→20:20)
[2016-11-12] MEDS: ACCU-CHEK XX SCH ×2 (08:45→21:00)
[2016-11-12 10:11] LABS: EOSINOPHILS # 0.2 10^3/ul (0.0-0.5); LYMPHOCYTES # 1.7 10^3/ul (0.8-2.9); MONOCYTE # 0.5 10^3/ul (0.3-0.9); MYELOCYTES # 0.1; NEUTROPHIL # 4.6 10^3/ul (1.6-7.5)
--- NOTE | 2016-11-12 11:10 | PN ---
Date/Time of Note Date/Time of Note DATE: 11/12/16 TIME: 11:06 Assessment/Plan VTE Prophylaxis VTE Prophylaxis Intervention: SCD's Lines/Catheters IV Catheter Type (from Nrs): PORTACATH Urinary Cath still in place: No Assessment/Plan Assessment/Plan Pt has recovery of WBC to 8.6. Plt remain ~80. Chemotherapy to be held until next week but it is likely Neupogen can be stopped tomorrow. CBC to be rechecked. Alopecia is likely due to chemotherapy. NG tube is in the stomach with side port at GE junction. Will need to be sure that the tube does not withdraw further. Subjective 24 Hr Interval Summary Free Text/Dictation Pt notes that hair is falling out but otherwise is alright today. No nausea or vomiting. Exam/Review of Systems Vital Signs Vitals Vital Signs Date Time Temp Pulse Resp B/P Pulse Ox O2 Delivery O2 Flow Rate FiO2 11/12/16 08:15 97.8 69 18 120/58 95 11/11/16 10:19 21 11/11/16 03:00 Room Air Intake and Output 11/11/16 11/11/16 11/12/16 15:00 23:00 07:00 Intake Total 100 ml 1500 ml 300 ml Output Total 150 ml 200 ml 800 ml Balance -50 ml 1300 ml -500 ml Exam Constitutional: alert, oriented Head: normocephalic, other (NG tube noted) Neck: supple Respiratory: clear to auscultation Cardiovascular: regular rate and rhythm Gastrointestinal: soft Results Result Diagram: 11/12/16 0506 11/12/16 0506 Results 24 hrs Laboratory Tests Test 11/11/16 13:00 11/11/16 21:32 11/12/16 05:06 11/12/16 08:20 Vancomycin Level Trough 12.3 Bedside Glucose 97 109 White Blood Count 8.6 # Red Blood Count 3.58 L Hemoglobin 10.5 L Hematocrit 30.8 L Mean Corpuscular Volume 86.0 Mean Corpuscular Hemoglobin 29.3 Mean Corpuscular Hemoglobin Concent 34.1 Red Cell Distribution Width 14.5 Platelet Count 82 L Mean Platelet Volume 11.4 H Neutrophils % 53.0 Band Neutrophils % 14.0 H Lymphocytes % 20.0 Monocytes % 6.0 Eosinophils % 2.0 Basophils % Metamyelocytes % 3.0 H Myelocytes % 1.0 H Promyelocytes % 1.0 H Nucleated Red Blood Cells % 1.0 H Neutrophils # 4.6 Lymphocytes # 1.7 Monocytes # 0.5 Eosinophils # 0.2 Basophils # Metamyelocytes # 0.3 Myelocytes # 0.1 Promyelocytes # 0.1 Sodium Level 136 Potassium Level 3.4 L Chloride Level 103 Carbon Dioxide Level 25 Anion Gap 11 Blood Urea Nitrogen 23 H Creatinine 0.45 Glucose Level 120 Calcium Level 7.6 L Phosphorus Level 1.8 L Magnesium Level 1.9 Total Bilirubin 0.7 Direct Bilirubin 0.00 Indirect Bilirubin 0.7 Aspartate Amino Transf (AST/SGOT) 31 Alanine Aminotransferase (ALT/SGPT) 29 Alkaline Phosphatase 163 H Total Protein 4.6 L Albumin 2.0 L Globulin 2.60 Albumin/Globulin Ratio 0.76 Carcinoembryonic Antigen 2.8 Medications Medications Current Medications Ondansetron HCl 4 mg 4 mg Q4H PRN IV NAUSEA AND/OR VOMITING Last administered on 11/11/16 09:38; Admin Dose 4 MG; Start 10/17/16 at 19:00 Total Parenteral Nutrition (Tpn) 1,000 ml @ 100 mls/hr Q10H IV Last administered on 11/12/16 08:27; Admin Dose 100 MLS/HR; Start 10/19/16 at 18:30 Fentanyl (Duragesic 12 Mcg/Hr Patch) 1 patch Q72H TRANSDERM Last administered on 11/09/16 21:04; Admin Dose 1 PATCH; Start 10/19/16 at 18:30 Hydromorphone HCl (Dilaudid) 1 mg Q4H PRN IV BREAKTHROUGH PAIN Last administered on 11/09/16 18:02; Admin Dose 1 MG; Start 10/19/16 at 23:00 Lorazepam (Ativan) 0.5 mg Q8H PRN IV anxiety, insomnia Last administered on 15:24; Admin Dose 0.5 MG; Start 10/21/16 at 18:00 Diagnostic Test (Pha) (Accu-Chek) 1 ea Q12 XX Last administered on 11/12/16 08 :45; Admin Dose 1 EA; Start 10/22/16 at 09:00 Metoclopramide HCl (Reglan) 5 mg Q6 IV Last administered on 11/12/16 05:28; Admin Dose 5 MG; Start 10/23/16 at 00:00 Diphenhydramine HCl 50 mg 50 mg Q7D IV Last administered on 11/04/16 16:41; Admin Dose 50 MG; Start 10/28/16 at 09:00; Status Future Hold Dexamethasone/ Dextrose (Decadron/D5W) 55 ml @ 252 mls/hr Q7D IV Last administered on 11/04/16 16:38; Admin Dose 252 MLS/HR; Start 10/28/16 at 09:00; Status Future Hold Dexamethasone (Decadron) 10 mg Q7D IV Last administered on 11/03/16 21:48; Admin Dose 10 MG; Start 10/27/16 at 22:00; Status Future Hold Dexamethasone 10 mg 10 mg Q7D IV Last administered on 11/04/16 04:32; Admin Dose 10 MG; Start 10/28/16 at 04:00; Status Future Hold Paclitaxel/Sodium Chloride (taxOL/NS) 264 ml @ 88.333 mls/ hr Q7D IV Last administered on 11/04/16 17:21; Admin Dose 88.333 MLS/HR; Start 10/28/16 at 16: 30; Status Future Hold Diphenhydramine HCl 50 mg 50 mg Q14D IV Last administered on 10/29/16 12:22; Admin Dose 50 MG; Start 10/28/16 at 21:00; Status Future Hold Ramucirumab/ Sodium Chloride (Cyramza/NS) 285.3 ml @ 250 mls/hr Q14D IV Last administered on 10/29/16 12:41; Admin Dose 250 MLS/HR; Start 10/28/16 at 22:00; Status Future Hold Enalaprilat (Vasotec Iv) 0.625 mg Q4H PRN IV ELEVATED BLOOD PRESSURE Last administered on 11/07/16 13:38; Admin Dose 0.625 MG; Start 10/29/16 at 10:00 Clonidine HCl (Catapres-Tts 2 Patch) 1 patch Q7D TRANSDERM Last administered on 11/10/16 17:21; Admin Dose 1 PATCH; Start 11/03/16 at 18:30 Lidocaine 15 ml 15 ml QID PRN PO SORE THROAT Last administered on 11/10/16 12: 53; Admin Dose 15 ML; Start 11/08/16 at 14:00 Meropenem 100 ml @ 200 mls/hr Q8 IVPB Last administered on 11/12/16 05:28; Admin Dose 200 MLS/HR; Start 11/08/16 at 16:00 Fluconazole/ Sodium Chloride 50 ml @ 50 mls/hr Q24H IVPB Last administered on 19:50; Admin Dose 50 MLS/HR; Start 11/08/16 at 17:00 Acetaminophen (Ofirmev 1000mg/ 100ml Iv) 100 ml @ 400 mls/hr Q6H PRN IVPB FEVER Last administered on 11/12/16 02:29; Admin Dose 400 MLS/HR; Start at 16:00 Filgrastim (Neupogen) 480 mcg DAILY@17 SC Last administered on 11/11/16 18:36 ; Admin Dose 480 MCG; Start 11/11/16 at 17:00 Pantoprazole 40 mg 40 mg BID@06,18 IV Last administered on 11/12/16 05:28; Admin Dose 40 MG; Start 11/11/16 at 06:00 Vancomycin HCl/ Sodium Chloride (Vancocin/NS) 150 ml @ 75 mls/hr Q8H IVPB Last administered on 11/12/16 06:25; Admin Dose 75 MLS/HR; Start 11/11/16 at 22 :00 Miscellaneous Information (*Rx Drug Level Order Reminder*) VANCOMYCIN TROUGH LEVEL... ONCE ONCE XX ; Start 11/12/16 at 21:00; Stop 11/12/16 at 21:01 CHACHA LEDESMA MD November 12, 2016 11:10
--- NOTE | 2016-11-12 13:37 | PN ---
DATE: 11/11/2016 SUBJECTIVE: No acute changes. The patient is lying comfortably in bed, very weak. NG tube to suct ion. No fevers. LABORATORY DATA: WBC 8.6, platelets 82, neutrophils 53, bands 14, lymphs 20. BUN 23, creatinine 0 .45. MICROBIOLOGY: Blood culture on 11/08/2016 grew alpha-hemolytic strep species. Urine culture has be en negative. Repeat blood cultures negative. INDWELLINGS: Right chest Port-A-Cath, NG tube. ANTIMICROBIALS: The patient is on: 1. Vancomycin. 2. Fluconazole. 3. Merrem. PHYSICAL EXAMINATION: GENERAL: This is a cachectic, fragile, chronically ill-appearing elderly woman who is in no distres s. HEENT: Head atraumatic, normocephalic. Sclerae anicteric. Buccal mucosa dry. NECK: Supple. CHEST: Rise symmetrical. Breath sounds diminished to bases. HEART: S1, S2. ABDOMEN: Soft, bowel sounds present. EXTREMITIES: No cyanosis. ASSESSMENT: 1. Sepsis with alpha-hemolytic strep bacteremia. 2. Metastatic gastric carcinoma with abdominal carcinomatosis. 3. Bowel obstruction secondary to above. 4. Hypertension. 5. Resolving pneumonia. PLAN: We are going to change antibiotics to IV Rocephin. Continue present care. Follow oncologic recommendations. Chemotherapy on hold until next week. Dictated By: KJ HUYNH UNEMPLOYMENT SPECIALIST for LOLLY MUELLER/[place] Conf#: [id number] DID#: [id number]
[2016-11-12] MEDS: CEFTRIAXONE 1 GM/50 ML (PMX) 50 ML IVPB SCH (15:21)
--- NOTE | 2016-11-12 18:23 | PN ---
DATE: 11/12/2016 SUBJECTIVE: The patient is awake, alert, still has mild nausea requiring intermittent NG tube sucti on; otherwise, no abdominal pain, is able to ambulate with assistance for short distances. OBJECTIVE: VITAL SIGNS: Temperature 97.8, blood pressure 120/58, pulse of 69, respiration rate 18, O2 saturati on 95% on room air. HEENT: Pupils equally round, reactive to light. Anicteric sclerae. Left nasogastric tube in good position. LUNGS: Clear to auscultation anteriorly. CARDIAC: Heart murmur. ABDOMEN: Active bowel sounds, nondistended, nontender. Left ileostomy with scant fecal matter. LABORATORY DATA: WBC 8.6, hemoglobin 10.5, hematocrit 30.8, platelet count 82,000. Sodium 136, pot assium 3.4, chloride 103, carbon dioxide 25, BUN 23, creatinine 0.545, glucose 120, calcium 7.6, mychal sphorus 1.8, magnesium 1.9, total bilirubin 0.7, direct bilirubin 0.0, alkaline phosphatase 163, tot al protein 4.6, albumin 2.0. ASSESSMENT AND PLAN: 1. Pancytopenia. WBC is corrected with Neupogen, anemia and platelet gradually improving as well a fter transfusion. Chemotherapy for gastric cancer per oncologist. 2. Sepsis with pneumonia, asymptomatic on antibiotic. Recheck chest x-ray in a.m. 3. Hypophosphatemia and hypokalemia. Replace with potassium phosphate IV. 4. Nausea and vomiting, probably due to partial obstruction from metastatic gastric carcinoma. Con tinue NG tube suction for symptomatic relief and liquid diet for oral gratification. Nutritionally will continue the patient on TPN. May have to increase phosphorus if the phosphorus in the blood co ntinues to be low. Dictated By: KOBY FRANCO MD DP/NTS Conf#: [id number] DID#: [id number]
[2016-11-12] MEDS: FLUCONAZOLE 100 MG/NS (PMX) 50 ML IVPB SCH (18:30)
[2016-11-12] MEDS: FILGRASTIM 480 MCG INJ SC SCH (18:30)
[2016-11-12 19:58] VITALS: BP 162/69; RESP 20
[2016-11-12] MEDS: POTASSIUM PHOSPHATE 20 MEQ in SOD CHLORIDE 0.9% 250 ML IVPB SCH (19:58)
[2016-11-12] MEDS: FENTAnyl PATCH 12 MCG/HR TRANSDERM SCH (20:01)
[2016-11-13] MEDS: POTASSIUM PHOSPHATE 20 MEQ in SOD CHLORIDE 0.9% 250 ML IVPB SCH (00:08)
[2016-11-13] MEDS: TPN 1,000 ML IV SCH ×2 (04:44→14:50)
[2016-11-13 06:03] LABS: ADD SCAN DIFF NO
[2016-11-13 06:15] LABS: ABNORMAL IP MESSAGE 1; HEMATOCRIT 34.5 % (37.0-47.0); HEMOGLOBIN 11.4 g/dl (12.0-16.0); MEAN CORPUSCULAR HEMOGLOBIN 29.3 pg (29.0-33.0); MEAN CORPUSCULAR VOLUME 88.7 fl (82.0-101.0); MEAN PLATELET VOLUME 11.5 fl (7.4-10.4); PLATELET COUNT 92 10^3/UL (140-415); RED BLOOD COUNT 3.89 10^6/ul (4.20-5.40); RED CELL DISTRIBUTION WIDTH 15.8 % (11.5-14.5); WHITE BLOOD COUNT 39.3 10^3/ul (4.8-10.8)
[2016-11-13] MEDS: PANTOPRAZOLE 40 MG INJ IV SCH ×2 (06:25→17:31)
[2016-11-13] MEDS: METOCLOPRAMIDE 10 MG INJ IV SCH ×4 (06:25→23:38)
[2016-11-13 06:32] LABS: POTASSIUM 3.7 mmol/L (3.5-5.1)
[2016-11-13 06:35] LABS: CREATININE 0.44 mg/dl (0.44-1.00)
[2016-11-13 06:36] LABS: CALCIUM 7.8 mg/dl (8.4-10.2); MAGNESIUM 1.9 mg/dl (1.7-2.5); PHOSPHORUS 3.2 mg/dl (2.5-4.9)
--- NOTE | 2016-11-13 07:49 | RADRPT ---
PROCEDURE: XR Chest. CLINICAL INDICATION: Left basilar pneumonia. TECHNIQUE: Single frontal view. COMPARISON: 11/09/2016. FINDINGS: The right internal jugular vein tunneled implanted port central venous catheter and nasogastric tube remain in satisfactory position. There is left basilar air space disease consistent with atelectas is or pneumonia, slightly worse than seen previously. There is also new mild right basilar atelecta sis or pneumonia. The heart size is normal. There is calcification in the aorta consistent with atherosclerosis. There are small bilateral pleural effusions, larger. There is no pneumothorax. IMPRESSION: 1. Atherosclerosis. 2. Worse appearance of the lungs and larger bilateral pleural effusions. 3. No other change from 11/09/2016. RPTAT: QQ .Roberto Carrizales MD, MD Date Time Electronically viewed and signed by .Roberto Carrizales MD, MD on 11/13/2016 07:49 .R/
[2016-11-13 08:25] VITALS: BP 147/66; RESP 20
[2016-11-13] MEDS: ACCU-CHEK XX SCH ×2 (09:16→20:38)
[2016-11-13] MEDS: ONDANSETRON 4 MG INJ IV PRN (09:20)
[2016-11-13 09:36] LABS: LYMPHOCYTES # 1.6 10^3/ul (0.8-2.9); MONOCYTE # 2.4 10^3/ul (0.3-0.9); NEUTROPHIL # 26.3 10^3/ul (1.6-7.5); TOXIC GRANULATION 2+
--- NOTE | 2016-11-13 10:12 | PN ---
DATE: 11/13/2016 HEMATOLOGY/ONCOLOGY PROGRESS NOTE SUBJECTIVE: The patient states she is feeling better. Does have some episodes of "nausea" which ar e relieved by medication. The patient is not complaining of abdominal pain or cramping. She has reed d no shaking chills. OBJECTIVE: GENERAL: The patient is a well-developed, well-nourished female who is in no acute distress. VITAL SIGNS: Temperature 98.2, pulse 70 per minute and regular, respirations 20, blood pressure 147 /66, pulse oximetry is 95% on room air. SKIN: No ecchymosis, no petechiae or rashes. HEENT: Normocephalic. No evidence of trauma. Pupils equal, round, react to light and accommodatio n. Extraocular movements are intact. There is no scleral icterus. There is an NG tube in place in the left naris. NECK: Supple, no jugular venous distention or thyroid enlargement. CHEST: Clear to auscultation and percussion. No rhonchi, wheezes, rales or rubs. There is a Port-A -Cath in place in the right anterior chest which is accessed. HEART: Regular sinus rhythm, no S3, S4 or murmurs. ABDOMEN: Soft except for firmness around the stoma in the left abdomen. Bowel sounds are decreased , but there is no succussion splash. EXTREMITIES: No clubbing, edema or cyanosis. No palpable cords or Homans sign. NEUROLOGIC: Normal. LABORATORY DATA: Sodium 139, potassium 3.7, creatinine 0.44, BUN 22, calcium 10.8. White blood chiqui l count 39,300 with an absolute neutrophil count of 26,300, hemoglobin 11.4, hematocrit 34.5, platel et count is 92,000. An abdominal x-ray does show the NG tube tip overlying the fundus of the stomach with the side port at the gastroesophageal junction. ASSESSMENT: 1. Metastatic gastric carcinoma with abdominal carcinomatosis 2. Bowel obstruction secondary to #1. 3. Gram-positive bacteremia secondary to Streptococcus viridans, resolved. 4. Neutropenia secondary to chemotherapy, resolved. PLAN: We will discontinue the patient's filgrastim at this time. I also feel that the NG tube can be advanced 1 to 2 inches. This will, I believe, improve the effic iency of gastric suction and perhaps decrease the patient's feelings of nausea. We will plan on giving what should have been day 15 chemotherapy on Wednesday11/16/2016. This will co nsist of both paclitaxel and Cyramza. Dictated By: RADHA RODRIGUES MD SR/NTS Conf#: [id number] DID#: [id number]
[2016-11-13 12:06] LABS: HEMOGLOBIN 6.6 g/dl (12.0-16.0); WHITE BLOOD COUNT 1.6 10^3/ul (4.8-10.8)
[2016-11-13 12:07] LABS: PLATELET COUNT 104 10^3/UL (140-415)
[2016-11-13] MEDS: CEFTRIAXONE 1 GM/50 ML (PMX) 50 ML IVPB SCH (14:17)
--- NOTE | 2016-11-13 17:30 | RADRPT ---
PROCEDURE: XR Abdomen. CLINICAL INDICATION: Check nasogastric tube position. TECHNIQUE: AP supine abdomen x-ray. COMPARISON: 11/11/2016. FINDINGS: The nasogastric tube tip is in the stomach. A surgical clip is present in the right upper quadrant of the abdomen. A colostomy is present in the left lower quadrant. There is no evidence of obstruction. There are no abnormal calcifications overlying the urinary tracts. The osseus structures are unremarkable. IMPRESSION: 1. Nasogastric tube tip in the stomach. 2. Prior right upper quadrant abdomen surgery. 3. Left lower quadrant colostomy. RPTAT: QQ .Roberto Carrizales MD, MD Date Time Electronically viewed and signed by .Roberto Carrizales MD, MD on 11/13/2016 17:30 .R/
[2016-11-13] MEDS: FLUCONAZOLE 100 MG/NS (PMX) 50 ML IVPB SCH (17:31)
--- NOTE | 2016-11-13 18:28 | PN ---
DATE: 11/13/2016 SUBJECTIVE: Patient is awake, alert and able to ambulate around the nursing station with assistance . Minimal abdominal discomfort. No nausea. OBJECTIVE VITAL SIGNS: Temperature 98.2, blood pressure 147/66, pulse of 70, respiration rate 20, O2 saturati on 93% to 95% on room air. HEENT: Pupils equally round, reactive to light. Anicteric sclerae. Left nasogastric tube in place . Oropharynx clear. CHEST: Lungs are clear to auscultation. CARDIAC: Has a II-III/ systolic murmur. ABDOMEN: Active bowel sounds, soft, nontender. Left abdominal ileostomy. EXTREMITIES: No clubbing, cyanosis, or edema. LABORATORY DATA: WBC 39.3, hemoglobin 11.4, hematocrit 34.5, platelet count 92,000. Sodium 139, po tassium 3.7, BUN 22, creatinine 0.44, glucose 70, calcium 7.8, phosphorus 3.2, magnesium 1.9. Chest x-ray shows atherosclerosis. There is increased left basilar airspace disease consistent with atel ectasis or pneumonia, and there is also new right basilar atelectasis or pneumonia, no pneumothorax. ASSESSMENT AND PLAN: 1. Basilar pneumonia. The patient is currently on ceftriaxone and fluconazole and appears to have worsening appearance of the pneumonia. Will check with infectious disease regarding antibiotic. 2. Metastatic gastric cancer. The patient's white blood cell count has overcorrected and anemia reed s improved. Thrombocytopenia is improved also. We will plan on resuming chemotherapy as per oncolo gy's recommendation 3. Nausea, vomiting due to bowel obstruction from metastatic gastric carcinoma. Patient currently on total parenteral nutrition and nasogastric tube suction p.r.n. 3. She may have some liquids for oral gratification purposes. Will continue to monitor phosphate, magnesium, sodium and potassium on total parenteral nutrition. Dictated By: KOBY FRANCO MD DP/NTS Conf#: [id number] DID#: [id number]
[2016-11-13 19:10] VITALS: BP 166/71; RESP 18
[2016-11-13 20:39] VITALS: BP 152/68
[2016-11-14] MEDS: TPN 1,000 ML IV SCH ×3 (01:31→22:56)
--- NOTE | 2016-11-14 03:24 | PN ---
DATE: 11/13/2016 SUBJECTIVE: No acute changes overnight. The patient is alert, lying comfortably in bed. She feels better. No fever. NG tube to suction. WBC today 39.3, platelets 92, neutrophils 67. BUN 22, cre atinine 0.44. MICROBIOLOGY: Repeat blood culture on 11/11/2016 is negative. ANTIMICROBIALS: The patient is on: 1. Rocephin. 2. Fluconazole. INDWELLINGS: Right chest Port-A-Cath, NG tube. PHYSICAL EXAMINATION: GENERAL: Well-developed, fragile, cachectic elderly woman who is awake, in no distress. HEENT: Head atraumatic, normocephalic. Sclerae anicteric. Buccal mucosa dry. NECK: Supple, trachea midline. CHEST: Rise symmetrical. Breath sounds with scattered crackles to bases. HEART: S1, S2. ABDOMEN: Soft, bowel sounds present. EXTREMITIES: No cyanosis. ASSESSMENT: 1. Resolving sepsis. 2. Status post alpha hemolytic strep bacteremia with repeat blood cultures negative. 3. Metastatic gastric carcinoma with abdominal carcinomatosis. 4. Bowel obstruction secondary to above. 5. Hypertension. 6. Status post pneumonia. 7. Leukocytosis, Neupogen induced. PLAN: The patient remains stable. Continue present care. Continue antibiotics for 2 weeks to comp lete treatment for bacteremia. Follow chest x-ray and oncology recommendations. Discussed with . Dictated By: KJ HUYNH HEATER HELPER for LOLLY MUELLER/NTS Conf#: [id number] DID#: [id number]
[2016-11-14 05:50] LABS: ADD SCAN DIFF NO
[2016-11-14 05:55] LABS: ABNORMAL IP MESSAGE 1; HEMOGLOBIN 9.9 g/dl (12.0-16.0); MEAN CORPUSCULAR HEMOGLOBIN 29.3 pg (29.0-33.0); MEAN CORPUSCULAR VOLUME 88.8 fl (82.0-101.0); MEAN PLATELET VOLUME 12.3 fl (7.4-10.4); PLATELET COUNT 85 10^3/UL (140-415); RED BLOOD COUNT 3.38 10^6/ul (4.20-5.40); RED CELL DISTRIBUTION WIDTH 16.1 % (11.5-14.5); WHITE BLOOD COUNT 41.7 10^3/ul (4.8-10.8)
[2016-11-14] MEDS: METOCLOPRAMIDE 10 MG INJ IV SCH ×3 (05:55→17:36)
[2016-11-14] MEDS: PANTOPRAZOLE 40 MG INJ IV SCH ×2 (05:55→17:36)
[2016-11-14 06:26] LABS: ALBUMIN 2.1 g/dl (3.3-4.9); POTASSIUM 3.5 mmol/L (3.5-5.1)
[2016-11-14 06:28] LABS: BILIRUBIN,INDIRECT 0.3 mg/dl (0-1.1); BILIRUBIN,TOTAL 0.3 mg/dl (0.2-1.3); CREATININE 0.41 mg/dl (0.44-1.00)
[2016-11-14 06:29] LABS: ALBUMIN/GLOBULIN RATIO 0.75; CALCIUM 7.7 mg/dl (8.4-10.2); TOTAL PROTEIN 4.9 g/dl (6.1-8.1)
[2016-11-14 08:31] VITALS: BP 148/67; RESP 20
[2016-11-14] MEDS: ACCU-CHEK XX SCH ×2 (09:00→21:00)
--- NOTE | 2016-11-14 09:39 | PN ---
DATE: 11/14/2016 HEMATOLOGY/ONCOLOGY PROGRESS NOTE SUBJECTIVE: Patient states that she is feeling well. Is having some nausea at this time. Has had no emesis. The NG tube has been advanced approximately 2 inches. Apparently there has been some br ight red blood when placed to suction. The patient has had no shaking chills, no other specific complaints. No mouth discomfort. OBJECTIVE: GENERAL: The patient is a well-developed, well-nourished female who is in no acute distress VITAL SIGNS: Temperature 99.1, pulse 70 per minute and regular, respirations 18, blood pressure 148 /67, pulse oximetry 95% on room air. SKIN: No ecchymosis, no petechiae or rashes. HEENT: No mucosal lesions. No scleral icterus. There is a nasogastric tube in place in the patien t's left naris. NECK: Supple, no jugular venous distention or thyroid enlargement. CHEST: Clear to auscultation and percussion. No rhonchi, wheezes, rales or rubs. There is a Port- A-Cath in place in the patient's right anterior chest which has been accessed. HEART: Regular sinus rhythm, no S3, S4 or murmurs. ABDOMEN: Flat and soft. There is, however, firmness superior and lateral to the stoma in the left mid abdomen. Bowel sounds are decreased. There is no succussion splash. EXTREMITIES: No clubbing, edema or cyanosis. No palpable cords or Homans sign. NEUROLOGIC: Normal. White count today is 41,700, hemoglobin 9.9, hematocrit 30 and platelet count 85,000. Sodium 137, p otassium 3.5, BUN 22, creatinine 0.41, calcium 7.7, total bilirubin 0.3, direct bilirubin 0, AST 47, ALT 36, alkaline phosphatase 319. IMPRESSION: 1. Gastric carcinoma with intra-abdominal carcinomatosis. 2. Bowel obstruction secondary to #1. 3. Gram-positive bacteremia alpha hemolytic strep. 4. Leukocytosis related to use of filgrastim. PLAN: Filgrastim has been held. We will continue on present treatment for the bacteremia which con sists of ceftriaxone. The patient, unless there are any other at the most, there are any other comp lications, it is planned that the patient will resume chemotherapy. Is to receive paclitaxel and ra mucirumab on 11/16/2016. Dictated By: RADHA RODRIGUES MD, SR/[place] Conf#: [id number] DID#: [id number]
[2016-11-14 11:22] LABS: LYMPHOCYTES # 2.1 10^3/ul (0.8-2.9); MONOCYTE # 1.7 10^3/ul (0.3-0.9); MYELOCYTES # 0.8; NEUTROPHIL # 32.9 10^3/ul (1.6-7.5)
[2016-11-14 11:24] LABS: TOXIC GRANULATION 2+
[2016-11-14 11:25] LABS: ANISOCYTOSIS 1+
[2016-11-14 11:26] LABS: PLATELET ESTIMATE PLT APPEAR DECREASED; POLYCHROMASIA 1+
[2016-11-14] MEDS: CEFTRIAXONE 1 GM/50 ML (PMX) 50 ML IVPB SCH (13:02)
--- NOTE | 2016-11-14 13:41 | CONS ---
Date/Time of Note Date/Time of Note DATE: 11/14/16 TIME: 13:28 Assessment/Plan Assessment/Plan Chief Complaint/Hosp Course ID PROGRESS NOTE ABX DAY #5 / 14 total day course => Ceftriaxone + Fluconazole 24H INTERVAL SUMMARY * Awake, alert, stable, no c/o * No fevers w/Tmax 99.1 * WBC elevated on Dexamethasone => IV Steroid demargination likely PHYSICAL EXAMINATION: GENERAL: A/A/O, VSS HEENT: NGT-> Suction NECK: Supple, trach-> midline CHEST: Equal chest rise bilaterally, without dyspnea on observation HEART: Pulse RRR ABDOMEN: Distended EXTREMITIES: Warm, SKIN: Warm, dry ID ASSESSMENT: 66 yo F admitted with: 1. Resolving sepsis likely due to peritonitis =>Status post alpha hemolytic strep bacteremia with repeat blood cultures negative. * Leukocytosis, Neupogen induced. 2. Gastric cancer- STG IV -> s/p partial gastrectomy/partial colectomy/ palliative ileostomy. 3. Bowel obstruction due to #2 4. s/p Intractable nausea, vomiting, and abdominal pain-> due to ileus vs SBO 5. s/p pulmonary edema w/likely superimposed developing HCAP -> s/p full ABX course 6. Anemia & Thrombocytopenia 7. Hypertension. INVASIVES: * PIV / Chemo Port ABX ALLERGIES: KNDA CURRENT ABX: # 5 / 14 total days => Ceftriaxone + Fluconazole ID RECOMMENDATIONS: 1. Continue current ABX day #5 / 14 days total to cover 11/08/16 (+)BCx . Problems: Consultation Date/Type/Reason Admit Date/Time Oct 16, 2016 at 08:57 Type of Consultation: ID Referring Provider: KOBY FRANCO MD Exam/Review of Systems Vital Signs Vitals Vital Signs Date Time Temp Pulse Resp B/P Pulse Ox O2 Delivery O2 Flow Rate FiO2 11/14/16 08:31 99.1 70 20 148/67 95 11/11/16 10:19 21 11/11/16 03:00 Room Air Intake and Output 11/13/16 11/13/16 11/14/16 15:00 23:00 07:00 Intake Total 950 ml 910 ml 600 ml Output Total 1050 ml 750 ml Balance 950 ml -140 ml -150 ml Results Result Diagram: 11/14/16 0435 11/14/16 0435 Results 24 hrs Laboratory Tests Test 11/13/16 20:37 11/14/16 04:35 11/14/16 10:11 Bedside Glucose 115 109 White Blood Count 41.7 H Red Blood Count 3.38 L Hemoglobin 9.9 L Hematocrit 30.0 L Mean Corpuscular Volume 88.8 Mean Corpuscular Hemoglobin 29.3 Mean Corpuscular Hemoglobin Concent 33.0 Red Cell Distribution Width 16.1 H Platelet Count 85 L Mean Platelet Volume 12.3 H Neutrophils % 79.0 H Band Neutrophils % 9.0 H Lymphocytes % 5.0 L Monocytes % 4.0 Eosinophils % Metamyelocytes % 1.0 H Myelocytes % 2.0 H Neutrophils # 32.9 H Lymphocytes # 2.1 Monocytes # 1.7 H Eosinophils # Metamyelocytes # 0.4 Myelocytes # 0.8 Toxic Granulation 2+ Platelet Estimate PLT APPEAR DECREASED Large Platelets OCCASIONAL Polychromasia 1+ Anisocytosis 1+ Sodium Level 137 Potassium Level 3.5 Chloride Level 103 Carbon Dioxide Level 26 Anion Gap 12 Blood Urea Nitrogen 22 H Creatinine 0.41 L Glucose Level 75 Calcium Level 7.7 L Total Bilirubin 0.3 Direct Bilirubin 0.00 Indirect Bilirubin 0.3 Aspartate Amino Transf (AST/SGOT) 47 H Alanine Aminotransferase (ALT/SGPT) 36 Alkaline Phosphatase 319 #H Total Protein 4.9 L Albumin 2.1 L Globulin 2.80 Albumin/Globulin Ratio 0.75 Medications Medications Current Medications Ondansetron HCl 4 mg 4 mg Q4H PRN IV NAUSEA AND/OR VOMITING Last administered on 11/13/16 09:20; Admin Dose 4 MG; Start 10/17/16 at 19:00 Total Parenteral Nutrition (Tpn) 1,000 ml @ 100 mls/hr Q10H IV Last administered on 11/14/16 11:58; Admin Dose 100 MLS/HR; Start 10/19/16 at 18:30 Fentanyl (Duragesic 12 Mcg/Hr Patch) 1 patch Q72H TRANSDERM Last administered on 11/12/16 20:01; Admin Dose 1 PATCH; Start 10/19/16 at 18:30 Hydromorphone HCl (Dilaudid) 1 mg Q4H PRN IV BREAKTHROUGH PAIN Last administered on 11/09/16 18:02; Admin Dose 1 MG; Start 10/19/16 at 23:00 Lorazepam (Ativan) 0.5 mg Q8H PRN IV anxiety, insomnia Last administered on 15:24; Admin Dose 0.5 MG; Start 10/21/16 at 18:00 Diagnostic Test (Pha) (Accu-Chek) 1 ea Q12 XX Last administered on 11/14/16 09 :00; Admin Dose 1 EA; Start 10/22/16 at 09:00 Metoclopramide HCl (Reglan) 5 mg Q6 IV Last administered on 11/14/16 11:20; Admin Dose 5 MG; Start 10/23/16 at 00:00 Diphenhydramine HCl 50 mg 50 mg Q7D IV Last administered on 11/04/16 16:41; Admin Dose 50 MG; Start 10/28/16 at 09:00; Status Future Hold Dexamethasone/ Dextrose (Decadron/D5W) 55 ml @ 252 mls/hr Q7D IV Last administered on 11/04/16 16:38; Admin Dose 252 MLS/HR; Start 10/28/16 at 09:00; Status Future Hold Dexamethasone (Decadron) 10 mg Q7D IV Last administered on 11/03/16 21:48; Admin Dose 10 MG; Start 10/27/16 at 22:00; Status Future Hold Dexamethasone 10 mg 10 mg Q7D IV Last administered on 11/04/16 04:32; Admin Dose 10 MG; Start 10/28/16 at 04:00; Status Future Hold Paclitaxel/Sodium Chloride (taxOL/NS) 264 ml @ 88.333 mls/ hr Q7D IV Last administered on 11/04/16 17:21; Admin Dose 88.333 MLS/HR; Start 10/28/16 at 16: 30; Status Future Hold Diphenhydramine HCl 50 mg 50 mg Q14D IV Last administered on 10/29/16 12:22; Admin Dose 50 MG; Start 10/28/16 at 21:00; Status Future Hold Ramucirumab/ Sodium Chloride (Cyramza/NS) 285.3 ml @ 250 mls/hr Q14D IV Last administered on 10/29/16 12:41; Admin Dose 250 MLS/HR; Start 10/28/16 at 22:00; Status Future Hold Enalaprilat (Vasotec Iv) 0.625 mg Q4H PRN IV ELEVATED BLOOD PRESSURE Last administered on 11/07/16 13:38; Admin Dose 0.625 MG; Start 10/29/16 at 10:00 Clonidine HCl (Catapres-Tts 2 Patch) 1 patch Q7D TRANSDERM Last administered on 11/10/16 17:21; Admin Dose 1 PATCH; Start 11/03/16 at 18:30 Lidocaine 15 ml 15 ml QID PRN PO SORE THROAT Last administered on 11/10/16 12: 53; Admin Dose 15 ML; Start 11/08/16 at 14:00 Fluconazole/ Sodium Chloride 50 ml @ 50 mls/hr Q24H IVPB Last administered on 17:31; Admin Dose 50 MLS/HR; Start 11/08/16 at 17:00 Acetaminophen (Ofirmev 1000mg/ 100ml Iv) 100 ml @ 400 mls/hr Q6H PRN IVPB FEVER Last administered on 11/12/16 02:29; Admin Dose 400 MLS/HR; Start at 16:00 Pantoprazole 40 mg 40 mg BID@06,18 IV Last administered on 11/14/16 05:55; Admin Dose 40 MG; Start 11/11/16 at 06:00 Ceftriaxone Sodium (Rocephin) 50 ml @ 100 mls/hr Q24H IVPB Last administered on 11/14/16 13:02; Admin Dose 100 MLS/HR; Start 11/12/16 at 13:30 BRYAN LEWIS NP November 14, 2016 13:38
[2016-11-14 16:00] VITALS: BP 140/78; PULSE 78; RESP 18
[2016-11-14] MEDS: FLUCONAZOLE 100 MG/NS (PMX) 50 ML IVPB SCH (17:03)
--- NOTE | 2016-11-14 18:03 | PN ---
DATE: 11/14/2016 SUBJECTIVE: The patient was worried because she thought she saw some blood in the NG tube suction e arlier today. That has resolved now. OBJECTIVE: VITAL SIGNS: Temperature 99.1, blood pressure 148/67, pulse of 70, respiration rate 20, O2 saturati on 95% on room air. HEENT: Pupils equally round, reactive to light. Anicteric sclerae. Oropharynx clear. Left nasoga stric tube in good position. LUNGS: Clear to auscultation anteriorly. CARDIAC: A II/ systolic murmur. ABDOMEN: Active bowel sounds, nontender. EXTREMITIES: No clubbing, cyanosis, or edema. LABORATORY DATA: WBC 41.7, hemoglobin 9.9, hematocrit 30.0, platelets 85,000. Sodium 137, potassiu m 3.5, BUN 22, creatinine 0.41. ASSESSMENT AND PLAN: 1. Sepsis with alpha-hemolytic strep bacteremia. The patient on day #5 out of 14 of antibiotics, b ut on day 2 of ceftriaxone. Chest x-ray slightly worse, will recheck tomorrow. 2. Gastric cancer. Anticipate resuming chemotherapy on Wednesday. 3. Bowel obstruction due to gastric cancer. Continue NG tube suction and total parenteral nutritio n. Dictated By: KOBY FRANCO MD DP/NTS Conf#: [id number] DID#: [id number]
[2016-11-14 19:05] VITALS: BP 159/69; RESP 18
[2016-11-14] MEDS: ONDANSETRON 4 MG INJ IV PRN (20:38)
[2016-11-15] MEDS: METOCLOPRAMIDE 10 MG INJ IV SCH ×5 (00:10→23:19)
[2016-11-15 05:39] LABS: ADD SCAN DIFF NO
[2016-11-15 05:44] LABS: ABNORMAL IP MESSAGE 1; HEMATOCRIT 28.7 % (37.0-47.0); HEMOGLOBIN 9.4 g/dl (12.0-16.0); MEAN CORPUSCULAR HGB CONC 32.8 g/dl (32.0-37.0); MEAN CORPUSCULAR VOLUME 88.6 fl (82.0-101.0); MEAN PLATELET VOLUME 11.8 fl (7.4-10.4); PLATELET COUNT 87 10^3/UL (140-415); RED BLOOD COUNT 3.24 10^6/ul (4.20-5.40); RED CELL DISTRIBUTION WIDTH 16.2 % (11.5-14.5); WHITE BLOOD COUNT 28.3 10^3/ul (4.8-10.8)
[2016-11-15] MEDS: PANTOPRAZOLE 40 MG INJ IV SCH ×2 (05:59→17:38)
[2016-11-15 06:07] LABS: CALCIUM 7.7 mg/dl (8.4-10.2); CREATININE 0.4 mg/dl (0.44-1.00); POTASSIUM 3.9 mmol/L (3.5-5.1)
[2016-11-15 07:00] VITALS: BP 115/61; RESP 18
[2016-11-15] MEDS: ONDANSETRON 4 MG INJ IV PRN (08:25)
[2016-11-15] MEDS: ACCU-CHEK XX SCH ×2 (09:22→21:00)
[2016-11-15] MEDS: TPN 1,000 ML IV SCH ×2 (09:30→19:25)
[2016-11-15 09:43] LABS: BASOPHIL # 0.3 10^3/ul (0.0-0.1); BURR CELLS OCCASIONAL; LYMPHOCYTES # 0.8 10^3/ul (0.8-2.9); MONOCYTE # 0.6 10^3/ul (0.3-0.9); NEUTROPHIL # 24.1 10^3/ul (1.6-7.5); OVALOCYTES OCCASIONAL; TOXIC GRANULATION 1+
[2016-11-15 09:44] LABS: PLATELET ESTIMATE PLT APPEAR DECREASED
[2016-11-15] MEDS: CEFTRIAXONE 1 GM/50 ML (PMX) 50 ML IVPB SCH (12:54)
--- NOTE | 2016-11-15 16:17 | CONS ---
Date/Time of Note Date/Time of Note DATE: 11/15/16 TIME: 16:16 Assessment/Plan Assessment/Plan Chief Complaint/Hosp Course ID PROGRESS NOTE ABX DAY #6 / 14 total day course => Ceftriaxone + Fluconazole 24H INTERVAL SUMMARY * Resting, looks comfortable, WBC down today, no fevers * NGT, cachexia, family present * WBC elevated on Dexamethasone => IV Steroid demargination likely PHYSICAL EXAMINATION: GENERAL: A/A/O, VSS HEENT: NGT-> Suction NECK: Supple, trach-> midline CHEST: Equal chest rise bilaterally, without dyspnea on observation HEART: Pulse RRR ABDOMEN: Distended EXTREMITIES: Warm, SKIN: Warm, dry ID ASSESSMENT: 66 yo F admitted with: 1. Resolving sepsis likely due to peritonitis =>Status post alpha hemolytic strep bacteremia with repeat blood cultures negative. * Leukocytosis, Neupogen induced. 2. Gastric cancer- STG IV -> s/p partial gastrectomy/partial colectomy/ palliative ileostomy. 3. Bowel obstruction due to #2 4. s/p Intractable nausea, vomiting, and abdominal pain-> due to ileus vs SBO 5. s/p pulmonary edema w/likely superimposed developing HCAP -> s/p full ABX course 6. Anemia & Thrombocytopenia 7. Hypertension. INVASIVES: * PIV / Chemo Port ABX ALLERGIES: KNDA CURRENT ABX: # 6 / 14 total days => Ceftriaxone + Fluconazole ID RECOMMENDATIONS: 1. Continue current ABX day #6 / 14 days total to cover 11/08/16 (+)BCx . Problems: Consultation Date/Type/Reason Admit Date/Time Oct 16, 2016 at 08:57 Type of Consultation: ID Referring Provider: KOBY FRANCO MD Exam/Review of Systems Vital Signs Vitals Vital Signs Date Time Temp Pulse Resp B/P Pulse Ox O2 Delivery O2 Flow Rate FiO2 11/15/16 07:00 98.4 75 18 115/61 96 11/14/16 16:00 Room Air 11/11/16 10:19 21 Intake and Output 11/14/16 11/14/16 11/15/16 15:00 23:00 07:00 Intake Total 650 ml 650 ml 600 ml Output Total 960 ml 650 ml Balance 650 ml -310 ml -50 ml Results Result Diagram: 11/15/16 4544 11/15/16 0500 Results 24 hrs Laboratory Tests Test 11/14/16 20:42 11/15/16 04:55 11/15/16 05:00 11/15/16 09:00 Bedside Glucose 114 121 White Blood Count 28.3 #H Red Blood Count 3.24 L Hemoglobin 9.4 L Hematocrit 28.7 L Mean Corpuscular Volume 88.6 Mean Corpuscular Hemoglobin 29.0 Mean Corpuscular Hemoglobin Concent 32.8 Red Cell Distribution Width 16.2 H Platelet Count 87 L Mean Platelet Volume 11.8 H Neutrophils % 85.0 H Band Neutrophils % 7.0 H Lymphocytes % 3.0 L Monocytes % 2.0 Eosinophils % Basophils % 1.0 Metamyelocytes % 1.0 H Promyelocytes % 1.0 H Neutrophils # 24.1 H Lymphocytes # 0.8 Monocytes # 0.6 Eosinophils # Basophils # 0.3 H Metamyelocytes # 0.3 Promyelocytes # 0.3 Differential Comment MANUAL DIFF Toxic Granulation 1+ Platelet Estimate PLT APPEAR DECREASED Giant Platelets OCCASIONAL Ovalocytes OCCASIONAL Sodium Level 134 L Potassium Level 3.9 Chloride Level 105 Carbon Dioxide Level 26 Anion Gap 7 L Blood Urea Nitrogen 22 H Creatinine 0.40 L Glucose Level 119 # Calcium Level 7.7 L Medications Medications Current Medications Ondansetron HCl 4 mg 4 mg Q4H PRN IV NAUSEA AND/OR VOMITING Last administered on 11/15/16 08:25; Admin Dose 4 MG; Start 10/17/16 at 19:00 Total Parenteral Nutrition (Tpn) 1,000 ml @ 100 mls/hr Q10H IV Last administered on 11/15/16 09:30; Admin Dose 100 MLS/HR; Start 10/19/16 at 18:30 Fentanyl (Duragesic 12 Mcg/Hr Patch) 1 patch Q72H TRANSDERM Last administered on 11/12/16 20:01; Admin Dose 1 PATCH; Start 10/19/16 at 18:30 Hydromorphone HCl (Dilaudid) 1 mg Q4H PRN IV BREAKTHROUGH PAIN Last administered on 11/09/16 18:02; Admin Dose 1 MG; Start 10/19/16 at 23:00 Lorazepam (Ativan) 0.5 mg Q8H PRN IV anxiety, insomnia Last administered on 15:24; Admin Dose 0.5 MG; Start 10/21/16 at 18:00 Diagnostic Test (Pha) (Accu-Chek) 1 ea Q12 XX Last administered on 11/15/16 09 :22; Admin Dose 1 EA; Start 10/22/16 at 09:00 Metoclopramide HCl (Reglan) 5 mg Q6 IV Last administered on 11/15/16 12:54; Admin Dose 5 MG; Start 10/23/16 at 00:00 Diphenhydramine HCl 50 mg 50 mg Q7D IV Last administered on 11/04/16 16:41; Admin Dose 50 MG; Start 10/28/16 at 09:00; Status Future Hold Dexamethasone/ Dextrose (Decadron/D5W) 55 ml @ 252 mls/hr Q7D IV Last administered on 11/04/16 16:38; Admin Dose 252 MLS/HR; Start 10/28/16 at 09:00; Status Future Hold Dexamethasone (Decadron) 10 mg Q7D IV Last administered on 11/03/16 21:48; Admin Dose 10 MG; Start 10/27/16 at 22:00; Status Future Hold Dexamethasone 10 mg 10 mg Q7D IV Last administered on 11/04/16 04:32; Admin Dose 10 MG; Start 10/28/16 at 04:00; Status Future Hold Paclitaxel/Sodium Chloride (taxOL/NS) 264 ml @ 88.333 mls/ hr Q7D IV Last administered on 11/04/16 17:21; Admin Dose 88.333 MLS/HR; Start 10/28/16 at 16: 30; Status Future Hold Diphenhydramine HCl 50 mg 50 mg Q14D IV Last administered on 10/29/16 12:22; Admin Dose 50 MG; Start 10/28/16 at 21:00; Status Future Hold Ramucirumab/ Sodium Chloride (Cyramza/NS) 285.3 ml @ 250 mls/hr Q14D IV Last administered on 10/29/16 12:41; Admin Dose 250 MLS/HR; Start 10/28/16 at 22:00; Status Future Hold Enalaprilat (Vasotec Iv) 0.625 mg Q4H PRN IV ELEVATED BLOOD PRESSURE Last administered on 11/07/16 13:38; Admin Dose 0.625 MG; Start 10/29/16 at 10:00 Clonidine HCl (Catapres-Tts 2 Patch) 1 patch Q7D TRANSDERM Last administered on 11/10/16 17:21; Admin Dose 1 PATCH; Start 11/03/16 at 18:30 Lidocaine 15 ml 15 ml QID PRN PO SORE THROAT Last administered on 11/10/16 12: 53; Admin Dose 15 ML; Start 11/08/16 at 14:00 Fluconazole/ Sodium Chloride 50 ml @ 50 mls/hr Q24H IVPB Last administered on 17:03; Admin Dose 50 MLS/HR; Start 11/08/16 at 17:00 Acetaminophen (Ofirmev 1000mg/ 100ml Iv) 100 ml @ 400 mls/hr Q6H PRN IVPB FEVER Last administered on 11/12/16 02:29; Admin Dose 400 MLS/HR; Start at 16:00 Pantoprazole 40 mg 40 mg BID@06,18 IV Last administered on 11/15/16 05:59; Admin Dose 40 MG; Start 11/11/16 at 06:00 Ceftriaxone Sodium (Rocephin) 50 ml @ 100 mls/hr Q24H IVPB Last administered on 11/15/16 12:54; Admin Dose 100 MLS/HR; Start 11/12/16 at 13:30 Miscellaneous Information (* Miscellaneous Pharmacy Order) START CHEMO 0N ... ONCE XX ; Start 11/15/16 at 15:30 Miscellaneous Information (* Miscellaneous Pharmacy Order) CHEMO MEDS FOR TOMORROW--YOELU... ONCE XX ; Start 11/15/16 at 15:30 BRYAN LEWIS DIRECTOR OF LOGISTICS November 15, 2016 16:17
--- NOTE | 2016-11-15 16:56 | RADRPT ---
PROCEDURE: XR Chest. CLINICAL INDICATION: Shortness of breath. TECHNIQUE: Single frontal view. COMPARISON: 11/13/2016. FINDINGS: The tunneled right internal jugular vein implanted port central venous catheter and nasogastric tube remain in satisfactory position. There is air space disease at the lung bases consistent with atel ectasis or pneumonia, worse than seen previously. The heart size is normal. There is calcification in the aorta consistent with atherosclerosis. Small bilateral pleural effusions are unchanged. There is no pneumothorax. IMPRESSION: 1. Slightly worse appearance of the lung bases. 2. No other change from 11/13/2016. RPTAT: QQ .Roberto Carrizales MD, MD Date Time Electronically viewed and signed by .Roberto Carrizales MD, MD on 11/15/2016 16:55 .R/
[2016-11-15] MEDS: FLUCONAZOLE 100 MG/NS (PMX) 50 ML IVPB SCH (17:47)
--- NOTE | 2016-11-15 17:59 | PN ---
DATE: 11/15/2016 SUBJECTIVE: Patient is awake and alert. Reports a small amount of blood in her NG tube suction sin ce last night. OBJECTIVE VITAL SIGNS: Temperature 98.4, blood pressure 115/61, pulse of 75, respiration rate 18, O2 saturati on 96% on room air. HEENT: Anicteric sclerae. Oropharynx clear. CHEST: Clear to auscultation anteriorly. CARDIAC: Regular rate and rhythm, II/ systolic murmur. ABDOMEN: Active bowel sounds, soft, nontender at this time. LABORATORY DATA: WBC 28.3, hemoglobin 9.4, hematocrit 28.7, platelet count 87,000. Sodium 134, pot assium 3.9, BUN 22, creatinine 0.4, glucose 119. Chest x-ray still shows airspace disease at the jannet ng bases consistent with atelectasis or pneumonia. ASSESSMENT AND PLAN: 1. Gastric CA, resume chemotherapy tomorrow as planned. 2. Basilar pneumonia. Continue ceftriaxone for now. 3. Small-bowel obstruction due to gastric cancer. Continue NG tube suction and total parenteral nu trition. Follow phosphorus and magnesium on TPN. Dictated By: KOBY FRANCO MD DP/NTS Conf#: [id number] DID#: [id number]
[2016-11-15 20:00] VITALS: BP 154/68; PULSE 72; RESP 18
[2016-11-15] MEDS: FENTAnyl PATCH 12 MCG/HR TRANSDERM SCH (20:20)
[2016-11-16] VITALS (16 sets, daily range): BP systolic 136–163; BP diastolic 66–79; PULSE 58–84; RESP 16–19
[2016-11-16 04:58] LABS: ADD SCAN DIFF NO
[2016-11-16] MEDS: PANTOPRAZOLE 40 MG INJ IV SCH ×2 (04:58→19:05)
[2016-11-16] MEDS: TPN 1,000 ML IV SCH ×3 (04:58→22:44)
[2016-11-16 05:11] LABS: BASOPHIL # 0.1 10^3/ul (0.0-0.1); BASOPHILS % 0.4 % (0.0-2.0); EOSINOPHILS # 0.1 10^3/ul (0.0-0.5); EOSINOPHILS % 0.2 % (0.0-7.0); HEMOGLOBIN 9.2 g/dl (12.0-16.0); LYMPHOCYTES # 1.4 10^3/ul (0.8-2.9); LYMPHOCYTES % 6.8 % (15.0-51.0); MEAN CORPUSCULAR HEMOGLOBIN 29.2 pg (29.0-33.0); MEAN CORPUSCULAR HGB CONC 32.9 g/dl (32.0-37.0); MEAN CORPUSCULAR VOLUME 88.9 fl (82.0-101.0); MEAN PLATELET VOLUME 12.2 fl (7.4-10.4); MONOCYTE # 1.3 10^3/ul (0.3-0.9); MONOCYTES % 6.4 % (0.0-11.0); NEUTROPHIL # 16.7 10^3/ul (1.6-7.5); NEUTROPHILS % 82.3 % (39.0-77.0); NUCLEATED RED BLOOD CELLS # 0.1 10^3/ul (0.0-0.0); NUCLEATED RED BLOOD CELLS% 0.5 /100WBC (0.0-0.0); PLATELET COUNT 114 10^3/UL (140-415); RED BLOOD COUNT 3.15 10^6/ul (4.20-5.40); RED CELL DISTRIBUTION WIDTH 16.3 % (11.5-14.5); WHITE BLOOD COUNT 20.3 10^3/ul (4.8-10.8)
[2016-11-16 05:20] LABS: POTASSIUM 3.9 mmol/L (3.5-5.1)
[2016-11-16 05:23] LABS: CREATININE 0.45 mg/dl (0.44-1.00)
[2016-11-16 05:24] LABS: CALCIUM 7.8 mg/dl (8.4-10.2); PHOSPHORUS 3.8 mg/dl (2.5-4.9)
[2016-11-16] MEDS: METOCLOPRAMIDE 10 MG INJ IV SCH ×3 (05:24→19:05)
--- NOTE | 2016-11-16 08:45 | PN ---
DATE: 11/16/2016 SUBJECTIVE: The patient states she is feeling well. She has had no complaints of abdominal pain, d oes have some nausea, but there has been no emesis. The patient is not experiencing any abdominal p ain. No shaking chills, no mouth discomfort. OBJECTIVE: GENERAL: The patient is a well-developed, thin female, who is in no acute distress. VITAL SIGNS: Temperature 98.5, pulse 72 per minute and regular, respirations 18, blood pressure 154 /68, pulse oximetry 97% on room air. SKIN: No ecchymosis, no petechiae or rashes. HEENT: Normocephalic. No evidence of trauma. Pupils are equal, round, react to light and accommoda tion. There are no mucosal lesions. There is a NG tube attached to suction in the left naris. NECK: Supple. No jugular venous distention or thyroid enlargement. CHEST: Clear to auscultation and percussion. No rhonchi, wheezes, rales or rubs. There is a Port- A-Cath in the right anterior chest wall that is accessed. HEART: Regular sinus rhythm. No S3, S4 or murmurs. NODES: No palpable lymphadenopathy. ABDOMEN: There is firmness in the upper abdomen, particularly above the stoma on the left upper abd omen, which is functioning. There is no succussion splash, no ascites. EXTREMITIES: Good range of motion. No clubbing, no edema or cyanosis. No palpable cords or Homans sign. NEUROLOGIC: Normal. White count 20,300, with an absolute neutrophil count of 17,600. Hemoglobin 9.2, hematocrit 28, and platelet count 114,000. Sodium 135, potassium 3.9, BUN 24, creatinine 0.45, calcium 7.8. IMPRESSION: 1. Metastatic gastric carcinoma with abdominal carcinomatosis. 2. Bowel obstruction secondary to #1. 3. Gram-positive bacteremia with alpha hemolytic strep. Resolved. 4. Leukocytosis related to the use of filgrastim. The patient's white count is slowly decreasing. Will proceed with chemotherapy today. The patient is to receive paclitaxel and ramucirumab today. Dictated By: RADHA RODRIGUES MD SR/[place] Conf#: [id number] DID#: [id number]
[2016-11-16] MEDS: ACCU-CHEK XX SCH ×2 (09:58→20:46)
--- NOTE | 2016-11-16 12:50 | PN ---
DATE: 11/16/2016 SUBJECTIVE: No events overnight. No fevers. The patient is alert, lying comfortably in bed. Juan Carlos es pain. Family at bedside. LABORATORY DATA: WBC today 20.3, platelets 114, BUN 24, creatinine 0.45. ANTIMICROBIALS: The patient remains on: 1. IV Rocephin. 2. Fluconazole. INDWELLINGS: Right chest Port-A-Cath, NG tube. PHYSICAL EXAMINATION: GENERAL: This is a fragile, cachectic elderly woman who is awake, in no distress. HEENT: Head atraumatic, normocephalic. Sclerae anicteric. Buccal mucosa dry. NECK: Supple. CHEST: Rise symmetrical. Breath sounds diminished to bases. HEART: S1, S2. ABDOMEN: Soft, bowel sounds present. EXTREMITIES: No cyanosis. ASSESSMENT: 1. Resolving sepsis. 2. Streptococcal bacteremia with repeat blood cultures negative. 3. Metastatic gastric CA with abdominal carcinomatosis. 4. Bowel obstructions secondary to above. 5. Leukocytosis secondary to Neupogen. PLAN: The patient remains stable. Repeat blood cultures negative. Continue present care. Complet e antibiotics. Follow oncology recommendations. Dictated By: KJ HUYNH TRAIL MAINTENANCE WORKER for LOLLY MUELLER/[place] Conf#: [id number] DID#: [id number]
[2016-11-16] MEDS ORDERED: DEXAMETHASONE 4 MG/ML 20 MG in DEXTROSE 5% 50 ML IV SCH (13:00)
[2016-11-16] MEDS ORDERED: FAMOTIDINE 20 MG INJ IV SCH (13:00)
[2016-11-16] MEDS ORDERED: DIPHENHYDRAMINE 50 MG INJ IV SCH ×2 (13:00→16:00)
[2016-11-16] MEDS: CEFTRIAXONE 1 GM/50 ML (PMX) 50 ML IVPB SCH (13:22)
[2016-11-16] MEDS ORDERED: SOD CHLORIDE 0.9% IV SCH ×2 (14:00→16:30)
[2016-11-16] MEDS ORDERED: PACLITAXEL IV SCH (14:00)
[2016-11-16] MEDS ORDERED: ACETAMINOPHEN 1000MG/100ML IV 65 ML IVPB SCH (16:00)
[2016-11-16] MEDS ORDERED: RAMUCIRUMAB IV SCH (16:30)
[2016-11-16] MEDS: FLUCONAZOLE 100 MG/NS (PMX) 50 ML IVPB SCH (19:05)
--- NOTE | 2016-11-16 20:26 | PN ---
DATE: 11/16/2016 SUBJECTIVE: The patient awake, alert. Reports no problem. Receiving chemotherapy today. OBJECTIVE: VITAL SIGNS: Temperature 98.6, blood pressure 155/73, pulse of 69, respiration rate 16, O2 saturati on 98% on room air. HEENT: Anicteric sclerae. Oropharynx clear. Left nasogastric tube. CHEST: Minimal bibasilar crackles. CARDIAC: A II/ heart murmur. ABDOMEN: Active bowel sounds, nontender. EXTREMITIES: No clubbing, cyanosis, or edema. LABORATORY DATA: WBC 20.3, hemoglobin 9.2, hematocrit 28.0, platelet count 114,000. Sodium 135, po tassium 3.9, BUN 24, creatinine 0.45, glucose 112. Phosphorus and magnesium within normal limits. ASSESSMENT AND PLAN: 1. Metastatic gastric carcinoma, doing well clinically. Tolerating chemotherapy. 2. Sepsis with alpha hemolytic strep bacteremia, stable on current IV antibiotics. 3. Small-bowel obstruction secondary to gastric carcinoma. Continue NG tube suction and TPN. Dictated By: KOBY FRANCO MD DP/NTS Conf#: [id number] DID#: [id number]
[2016-11-17] MEDS: PANTOPRAZOLE 40 MG INJ IV SCH ×3 (05:45→17:48)
[2016-11-17 06:07] LABS: CALCIUM 8.1 mg/dl (8.4-10.2); CREATININE 0.43 mg/dl (0.44-1.00); MAGNESIUM 2.1 mg/dl (1.7-2.5)
[2016-11-17] MEDS: METOCLOPRAMIDE 10 MG INJ IV SCH ×5 (06:08→23:22)
[2016-11-17 06:18] VITALS: BP 158/74; PULSE 54; RESP 18
[2016-11-17 07:24] VITALS: BP 182/74; RESP 19
[2016-11-17] MEDS: ACCU-CHEK XX SCH ×2 (09:00→20:42)
[2016-11-17] MEDS: TPN 1,000 ML IV SCH ×2 (11:41→21:48)
[2016-11-17] MEDS: CEFTRIAXONE 1 GM/50 ML (PMX) 50 ML IVPB SCH (13:10)
--- NOTE | 2016-11-17 13:44 | CONS ---
Date/Time of Note Date/Time of Note DATE: 11/17/16 TIME: 13:42 Assessment/Plan Assessment/Plan Chief Complaint/Hosp Course SUBJECTIVE: No events overnight. No fevers. The patient is alert, feels good. ANTIMICROBIALS: 1. IV Rocephin. 2. Fluconazole. INDWELLINGS: Right chest Port-A-Cath, NG tube. PHYSICAL EXAMINATION: GENERAL: This is a fragile, cachectic elderly woman who is awake, in no distress. HEENT: Head atraumatic, normocephalic. Sclerae anicteric. Buccal mucosa dry. NECK: Supple. CHEST: Rise symmetrical. Breath sounds diminished to bases. HEART: S1, S2. ABDOMEN: Soft, bowel sounds present. EXTREMITIES: No cyanosis. ASSESSMENT: 1. Resolving sepsis. 2. Streptococcal bacteremia with repeat blood cultures negative. 3. Metastatic gastric CA with abdominal carcinomatosis. 4. Bowel obstructions secondary to above. 5. Leukocytosis secondary to Neupogen. PLAN: The patient remains stable. Repeat blood cultures negative. Continue present care. Complete antibiotics. Follow oncology recommendations. DW staff/pt Problems: Consultation Date/Type/Reason Admit Date/Time Oct 16, 2016 at 08:57 Type of Consultation: ID Referring Provider: KOBY FRANCO MD Exam/Review of Systems Vital Signs Vitals Vital Signs Date Time Temp Pulse Resp B/P Pulse Ox O2 Delivery O2 Flow Rate FiO2 11/17/16 07:24 97.7 62 19 182/74 99 11/17/16 06:18 Room Air Intake and Output 11/16/16 11/16/16 11/17/16 15:00 23:00 07:00 Intake Total 1105 ml 714 ml 600 ml Output Total 700 ml 1600 ml Balance 1105 ml 14 ml -1000 ml Results Result Diagram: 11/16/16 0435 11/17/16 0510 Results 24 hrs Laboratory Tests Test 11/16/16 19:56 11/17/16 05:10 11/17/16 12:18 Bedside Glucose 125 117 Sodium Level 135 Potassium Level 5.0 Chloride Level 109 Carbon Dioxide Level 23 Anion Gap 8 Blood Urea Nitrogen 27 H Creatinine 0.43 L Glucose Level 213 # Calcium Level 8.1 L Phosphorus Level 4.0 Magnesium Level 2.1 Medications Medications Current Medications Ondansetron HCl 4 mg 4 mg Q4H PRN IV NAUSEA AND/OR VOMITING Last administered on 11/15/16 08:25; Admin Dose 4 MG; Start 10/17/16 at 19:00 Total Parenteral Nutrition (Tpn) 1,000 ml @ 100 mls/hr Q10H IV Last administered on 11/17/16 11:41; Admin Dose 100 MLS/HR; Start 10/19/16 at 18:30 Fentanyl (Duragesic 12 Mcg/Hr Patch) 1 patch Q72H TRANSDERM Last administered on 11/15/16 20:20; Admin Dose 1 PATCH; Start 10/19/16 at 18:30 Hydromorphone HCl (Dilaudid) 1 mg Q4H PRN IV BREAKTHROUGH PAIN Last administered on 11/09/16 18:02; Admin Dose 1 MG; Start 10/19/16 at 23:00 Lorazepam (Ativan) 0.5 mg Q8H PRN IV anxiety, insomnia Last administered on 15:24; Admin Dose 0.5 MG; Start 10/21/16 at 18:00 Diagnostic Test (Pha) (Accu-Chek) 1 ea Q12 XX Last administered on 11/17/16 09 :00; Admin Dose 1 EA; Start 10/22/16 at 09:00 Metoclopramide HCl (Reglan) 5 mg Q6 IV Last administered on 11/17/16 13:10; Admin Dose 5 MG; Start 10/23/16 at 00:00 Dexamethasone (Decadron) 10 mg Q7D IV Last administered on 11/03/16 21:48; Admin Dose 10 MG; Start 10/27/16 at 22:00; Status Future Hold Dexamethasone (Decadron) 10 mg Q7D IV Last administered on 11/04/16 04:32; Admin Dose 10 MG; Start 10/28/16 at 04:00; Status Future Hold Enalaprilat (Vasotec Iv) 0.625 mg Q4H PRN IV ELEVATED BLOOD PRESSURE Last administered on 11/07/16 13:38; Admin Dose 0.625 MG; Start 10/29/16 at 10:00 Clonidine HCl (Catapres-Tts 2 Patch) 1 patch Q7D TRANSDERM Last administered on 11/10/16 17:21; Admin Dose 1 PATCH; Start 11/03/16 at 18:30 Lidocaine 15 ml 15 ml QID PRN PO SORE THROAT Last administered on 11/10/16 12: 53; Admin Dose 15 ML; Start 11/08/16 at 14:00 Fluconazole/ Sodium Chloride 50 ml @ 50 mls/hr Q24H IVPB Last administered on 19:05; Admin Dose 50 MLS/HR; Start 11/08/16 at 17:00 Acetaminophen (Ofirmev 1000mg/ 100ml Iv) 100 ml @ 400 mls/hr Q6H PRN IVPB FEVER Last administered on 11/12/16 02:29; Admin Dose 400 MLS/HR; Start at 16:00 Pantoprazole 40 mg 40 mg BID@06,18 IV Last administered on 11/17/16 06:08; Admin Dose 40 MG; Start 11/11/16 at 06:00 Ceftriaxone Sodium (Rocephin) 50 ml @ 100 mls/hr Q24H IVPB Last administered on 11/17/16 13:10; Admin Dose 100 MLS/HR; Start 11/12/16 at 13:30 Miscellaneous Information (* Miscellaneous Pharmacy Order) START CHEMO 0N ... ONCE XX ; Start 11/15/16 at 15:30 Miscellaneous Information (* Miscellaneous Pharmacy Order) CHEMO MEDS FOR TOMORROW--RAMUCIRU... ONCE XX ; Start 11/15/16 at 15:30 KJ HUYNH NP November 17, 2016 13:44
[2016-11-17] MEDS: FLUCONAZOLE 100 MG/NS (PMX) 50 ML IVPB SCH (17:47)
--- NOTE | 2016-11-17 20:44 | PN ---
DATE: 11/17/2016 SUBJECTIVE: The patient is awake and alert, feels well today. OBJECTIVE: VITAL SIGNS: Temperature 97.7, blood pressure 182/74, pulse of 62, respiration rate 19, O2 saturati on 99% on room air. HEENT: Anicteric sclerae. Oropharynx clear. CHEST: Bibasilar crackles. II/ systolic murmur. ABDOMEN: Active bowel sounds. Nondistended, nontender. Left ileostomy bag with scant fecal matter . EXTREMITIES: No clubbing, cyanosis, edema. LABORATORY DATA: Sodium 135, potassium 5.0, chloride 109, bicarbonate 23, BUN 27, creatinine 0.43, glucose ____. Calcium 8.1, phosphorus 4.0, magnesium 2.1. ASSESSMENT AND PLAN: 1. Metastatic gastric cancer, status post chemotherapy yesterday. Continue to follow CBC and blood pressure and treat side effect of chemotherapy as indicated. 2. Hypertension. Use clonidine for now. 3. Small-bowel obstruction. Continue NG tube suction and total parenteral nutrition. 4. Pneumonia. Recheck chest x-ray in a.m. Dictated By: KOBY FRANCO MD DP/NTS Conf#: [id number] DID#: [id number]
[2016-11-17 20:49] VITALS: BP 163/70; RESP 20
--- NOTE | 2016-11-17 21:41 | PN ---
DATE: 11/17/2016 SUBJECTIVE: The patient did receive chemotherapy yesterday with Cyramza and paclitaxel. She seemed to tolerate it well. She denies any nausea. No complaints of mouth soreness. No abdominal pain o r cramping. OBJECTIVE: GENERAL: The patient is a well-developed, but chronically appearing female who is in no acute distr ess. SKIN: No ecchymosis, no petechiae, or rashes. HEENT: Normocephalic. No evidence of trauma. Pupils equal, round, react to light and accommodatio n. Sclerae nonicteric. Oral mucosa is moist without lesions. There is a nasogastric tube in place in the patient's left naris. NECK: Supple. No jugular venous distention or thyroid enlargement. CHEST: Clear to auscultation and percussion. No rhonchi, wheezes, rales, or rubs. There is a Port -A-Cath in the right anterior chest, which is accessed. HEART: Regular sinus rhythm. No S3, S4, or murmurs. ABDOMEN: Reveals a colostomy in the left abdomen, which is firm, with the abdomen being firm superi or to the colostomy. No distinct mass. EXTREMITIES: No clubbing, no edema, or cyanosis. No palpable cords or Homans sign. LABORATORY DATA: Sodium 135, potassium 5, BUN 27, creatinine 0.43. IMPRESSION: 1. Gastric carcinoma with intra-abdominal carcinomatosis. 2. Bowel obstruction secondary to gastric carcinoma with intra-abdominal carcinomatosis. 3. Gram-positive bacteremia due to alpha hemolytic strep, resolved. PLAN: The patient will continue on TPN. Review of the chart demonstrates that there was a decreased amount of output from the NG tube in the past 24 hours, but this may have been due to obstruction of the tube. It has since been irrigated. I have discussed the situation with Dr. Morataya who had been the patient's oncologist at [facility]. Will plan on continuing present therapy with weekly paclitaxel and Cyramza to given every 2 weeks. Next week is to receive paclitaxel again. This will be due to on 11/23/2016. We will repeat chemistries and CBC in the morning. Dictated By: RADHA RODRIGUES MD SR/NTS Conf#: [id number] DID#: [id number] CC: KOBY FRANCO MD;*[facility]*
[2016-11-17] MEDS: CLONIDINE 0.2 MG/24 HR PATCH TRANSDERM SCH (22:23)
[2016-11-18 05:52] LABS: ADD SCAN DIFF NO
[2016-11-18] MEDS: PANTOPRAZOLE 40 MG INJ IV SCH ×2 (05:56→18:19)
[2016-11-18] MEDS: METOCLOPRAMIDE 10 MG INJ IV SCH ×4 (05:57→23:34)
[2016-11-18 06:30] LABS: ABNORMAL IP MESSAGE 1; BASOPHIL # 0.1 10^3/ul (0.0-0.1); BASOPHILS % 0.5 % (0.0-2.0); HEMATOCRIT 30.6 % (37.0-47.0); HEMOGLOBIN 9.4 g/dl (12.0-16.0); LYMPHOCYTES # 0.8 10^3/ul (0.8-2.9); LYMPHOCYTES % 4.8 % (15.0-51.0); MEAN CORPUSCULAR HEMOGLOBIN 28.7 pg (29.0-33.0); MEAN CORPUSCULAR HGB CONC 30.7 g/dl (32.0-37.0); MEAN CORPUSCULAR VOLUME 93.6 fl (82.0-101.0); MONOCYTE # 0.4 10^3/ul (0.3-0.9); MONOCYTES % 2.4 % (0.0-11.0); NEUTROPHILS % 89.8 % (39.0-77.0); NUCLEATED RED BLOOD CELLS # 0.1 10^3/ul (0.0-0.0); NUCLEATED RED BLOOD CELLS% 0.3 /100WBC (0.0-0.0); PLATELET COUNT 83 10^3/UL (140-415); RED BLOOD COUNT 3.27 10^6/ul (4.20-5.40); RED CELL DISTRIBUTION WIDTH 16.6 % (11.5-14.5); WHITE BLOOD COUNT 15.6 10^3/ul (4.8-10.8)
[2016-11-18 06:39] LABS: ALBUMIN 2.5 g/dl (3.3-4.9); BILIRUBIN,DIRECT 0.1 mg/dl (0.00-0.20); BILIRUBIN,INDIRECT 0.3 mg/dl (0-1.1); BILIRUBIN,TOTAL 0.4 mg/dl (0.2-1.3); CALCIUM 8.1 mg/dl (8.4-10.2); CREATININE 0.42 mg/dl (0.44-1.00); POTASSIUM 4.9 mmol/L (3.5-5.1); TOTAL PROTEIN 5.9 g/dl (6.1-8.1)
[2016-11-18 06:40] LABS: ALBUMIN/GLOBULIN RATIO 0.73
[2016-11-18 07:42] VITALS: BP 168/82; RESP 19
[2016-11-18] MEDS: TPN 1,000 ML IV SCH ×4 (08:10→23:33)
[2016-11-18] MEDS: ACCU-CHEK XX SCH ×2 (09:00→21:43)
[2016-11-18 09:21] LABS: MAGNESIUM 2.2 mg/dl (1.7-2.5); PHOSPHORUS 3.9 mg/dl (2.5-4.9)
--- NOTE | 2016-11-18 10:01 | PN ---
DATE: 11/18/2016 SUBJECTIVE: The patient states he is feeling well. Has no complaints after receiving chemotherapy on November 16. The patient is not experiencing nausea or abdominal pain. OBJECTIVE: GENERAL: The patient is a well-developed, chronically ill-appearing female who is in no acute distr ess. VITAL SIGNS: Temperature 97.2, pulse 71, respirations 19, blood pressure 168/82, pulse oximetry 99% on room air. SKIN: No ecchymosis, no petechiae or rashes. HEENT: Normocephalic. No evidence of trauma. Pupils equal, round, react to light and accommodatio n. No scleral icterus. There is a nasogastric tube in the left naris. NECK: Supple, no jugular venous distention or thyroid enlargement. CHEST: Clear to auscultation and percussion. No rhonchi, wheezes, rales, or rubs. There is a Port -A-Cath in the right anterior chest which has been accessed. ABDOMEN: Flat. There is a colostomy in the left upper abdomen which is draining black liquid. The re is firmness surrounding the colostomy, but not a distinct mass. No obvious ascites. No succussi on splash. EXTREMITIES: No clubbing, edema, or cyanosis. No palpable cords or Homans sign. LABORATORY DATA: Sodium 137, potassium 4.9, creatinine 0.42, BUN 26, total bilirubin 0.4, direct 0. 1, AST 99, ALT 39, alkaline phosphatase 254. White count 15,600 with an absolute neutrophil count o f 14,000, hemoglobin 9.4, hematocrit 30.6, and platelet count is 83,000. ASSESSMENT: 1. Gastric carcinoma with intraabdominal carcinomatosis. 2. Bowel obstruction secondary to gastric carcinoma. 3. Gram-positive bacteremia due to alpha-hemolytic strep, resolved. PLAN: The patient will continue on TPN. There does still seem to be a decreased output from the NG tube in the past 48 hours. We will consi jeffrey clamping the tube to determine if there is any improvement in the obstruction. Dictated By: RADHA RODRIGUES MD SR/NTS Conf#: [id number] DID#: [id number]
--- NOTE | 2016-11-18 12:54 | CONS ---
Date/Time of Note Date/Time of Note DATE: 11/18/16 TIME: 12:53 Assessment/Plan Assessment/Plan Chief Complaint/Hosp Course SUBJECTIVE: No events overnight. No fevers. The patient is alert, feels good. ANTIMICROBIALS: 1. IV Rocephin. 2. Fluconazole. INDWELLINGS: Right chest Port-A-Cath, NG tube. PHYSICAL EXAMINATION: GENERAL: This is a fragile, cachectic elderly woman who is awake, in no distress. HEENT: Head atraumatic, normocephalic. Sclerae anicteric. Buccal mucosa dry. NECK: Supple. CHEST: Rise symmetrical. Breath sounds diminished to bases. HEART: S1, S2. ABDOMEN: Soft, bowel sounds present. EXTREMITIES: No cyanosis. ASSESSMENT: 1. Resolving sepsis. 2. Streptococcal bacteremia with repeat blood cultures negative. 3. Metastatic gastric CA with abdominal carcinomatosis. 4. Bowel obstructions secondary to above. 5. Leukocytosis secondary to Neupogen. PLAN: The patient remains stable. Complete antibiotics for 4 more days. Follow oncology recommendations. [facility] staff/pt Problems: Consultation Date/Type/Reason Admit Date/Time Oct 16, 2016 at 08:57 Type of Consultation: ID Referring Provider: KOBY FRANCO MD Exam/Review of Systems Vital Signs Vitals Vital Signs Date Time Temp Pulse Resp B/P Pulse Ox O2 Delivery O2 Flow Rate FiO2 11/18/16 07:42 97.2 71 19 168/82 99 11/17/16 06:18 Room Air Intake and Output 11/17/16 11/17/16 11/18/16 15:00 23:00 07:00 Intake Total 50 ml 1050 ml Output Total 575 ml 600 ml Balance 50 ml 475 ml -600 ml Results Result Diagram: 11/18/16 0450 11/18/16 0450 Results 24 hrs Laboratory Tests Test 11/17/16 20:41 11/18/16 04:50 11/18/16 05:00 11/18/16 09:09 Bedside Glucose 112 88 White Blood Count 15.6 #H Red Blood Count 3.27 L Hemoglobin 9.4 L Hematocrit 30.6 L Mean Corpuscular Volume 93.6 Mean Corpuscular Hemoglobin 28.7 L Mean Corpuscular Hemoglobin Concent 30.7 L Red Cell Distribution Width 16.6 H Platelet Count 83 #L Mean Platelet Volume Neutrophils % 89.8 H Lymphocytes % 4.8 L Monocytes % 2.4 Eosinophils % 0.0 Basophils % 0.5 Nucleated Red Blood Cells % 0.3 H Neutrophils # 14.0 H Lymphocytes # 0.8 Monocytes # 0.4 Eosinophils # 0.0 Basophils # 0.1 Nucleated Red Blood Cells # 0.1 H Sodium Level 137 Potassium Level 4.9 Chloride Level 111 H Carbon Dioxide Level 21 Anion Gap 10 Blood Urea Nitrogen 26 H Creatinine 0.42 L Glucose Level 124 # Calcium Level 8.1 L Total Bilirubin 0.4 Direct Bilirubin 0.10 Indirect Bilirubin 0.3 Aspartate Amino Transf (AST/SGOT) 99 H Alanine Aminotransferase (ALT/SGPT) 39 Alkaline Phosphatase 254 H Total Protein 5.9 L Albumin 2.5 L Globulin 3.40 H Albumin/Globulin Ratio 0.73 Phosphorus Level 3.9 Magnesium Level 2.2 Medications Medications Current Medications Ondansetron HCl 4 mg 4 mg Q4H PRN IV NAUSEA AND/OR VOMITING Last administered on 11/15/16 08:25; Admin Dose 4 MG; Start 10/17/16 at 19:00 Total Parenteral Nutrition (Tpn) 1,000 ml @ 100 mls/hr Q10H IV Last administered on 11/17/16 21:48; Admin Dose 100 MLS/HR; Start 10/19/16 at 18:30 Fentanyl (Duragesic 12 Mcg/Hr Patch) 1 patch Q72H TRANSDERM Last administered on 11/15/16 20:20; Admin Dose 1 PATCH; Start 10/19/16 at 18:30 Hydromorphone HCl (Dilaudid) 1 mg Q4H PRN IV BREAKTHROUGH PAIN Last administered on 11/09/16 18:02; Admin Dose 1 MG; Start 10/19/16 at 23:00 Lorazepam (Ativan) 0.5 mg Q8H PRN IV anxiety, insomnia Last administered on 15:24; Admin Dose 0.5 MG; Start 10/21/16 at 18:00 Diagnostic Test (Pha) (Accu-Chek) 1 ea Q12 XX Last administered on 11/17/16 20 :42; Admin Dose 1 EA; Start 10/22/16 at 09:00 Metoclopramide HCl (Reglan) 5 mg Q6 IV Last administered on 11/18/16 05:57; Admin Dose 5 MG; Start 10/23/16 at 00:00 Dexamethasone (Decadron) 10 mg Q7D IV Last administered on 11/03/16 21:48; Admin Dose 10 MG; Start 10/27/16 at 22:00; Status Future Hold Dexamethasone (Decadron) 10 mg Q7D IV Last administered on 11/04/16 04:32; Admin Dose 10 MG; Start 10/28/16 at 04:00; Status Future Hold Enalaprilat (Vasotec Iv) 0.625 mg Q4H PRN IV ELEVATED BLOOD PRESSURE Last administered on 11/07/16 13:38; Admin Dose 0.625 MG; Start 10/29/16 at 10:00 Clonidine HCl (Catapres-Tts 2 Patch) 1 patch Q7D TRANSDERM Last administered on 11/17/16 22:23; Admin Dose 1 PATCH; Start 11/03/16 at 18:30 Lidocaine 15 ml 15 ml QID PRN PO SORE THROAT Last administered on 11/10/16 12: 53; Admin Dose 15 ML; Start 11/08/16 at 14:00 Fluconazole/ Sodium Chloride 50 ml @ 50 mls/hr Q24H IVPB Last administered on 17:47; Admin Dose 50 MLS/HR; Start 11/08/16 at 17:00 Acetaminophen (Ofirmev 1000mg/ 100ml Iv) 100 ml @ 400 mls/hr Q6H PRN IVPB FEVER Last administered on 11/12/16 02:29; Admin Dose 400 MLS/HR; Start at 16:00 Pantoprazole 40 mg 40 mg BID@06,18 IV Last administered on 11/18/16 05:56; Admin Dose 40 MG; Start 11/11/16 at 06:00 Ceftriaxone Sodium (Rocephin) 50 ml @ 100 mls/hr Q24H IVPB Last administered on 11/17/16 13:10; Admin Dose 100 MLS/HR; Start 11/12/16 at 13:30 Miscellaneous Information (* Miscellaneous Pharmacy Order) START CHEMO 0N ... ONCE XX ; Start 11/15/16 at 15:30 Miscellaneous Information (* Miscellaneous Pharmacy Order) CHEMO MEDS FOR TOMORROW--ADRIÁN... ONCE XX ; Start 11/15/16 at 15:30 KJ HUYNH NP November 18, 2016 12:54
[2016-11-18] MEDS: CEFTRIAXONE 1 GM/50 ML (PMX) 50 ML IVPB SCH (13:05)
--- NOTE | 2016-11-18 17:54 | RADRPT ---
PROCEDURE: XR Chest. CLINICAL INDICATION: Pneumonia TECHNIQUE: Chest PA and lateral. COMPARISON: 11/15/2016 FINDINGS: Nasogastric tube in the stomach. Right internal jugular Port-A-Cath. The mediastinal structures are unremarkable. There is calcification of the thoracic aorta (consiste nt with atherosclerosis). The heart is normal in size and configuration. There is a decrease in th e LLL patchy consolidation. There is a clearing of the RLL patchy consolidation. There is a small left pleural effusion. There are senescent changes of the axial skeleton. IMPRESSION: Calcification of the thoracic aorta (consistent with atherosclerosis) Decrease in the LLL patchy consolidation Clearing of RLL patchy consolidation. Small left pleural effusion RPTAT: HGDB .Jh Rondon MD, MD Date Time Electronically viewed and signed by .Jh Rondon MD, on 11/18/2016 17:53 .B/
[2016-11-18] MEDS: FLUCONAZOLE 100 MG/NS (PMX) 50 ML IVPB SCH (18:21)
[2016-11-18] MEDS: FENTAnyl PATCH 12 MCG/HR TRANSDERM SCH (18:21)
--- NOTE | 2016-11-18 20:48 | PN ---
DATE: 11/18/2016 SUBJECTIVE: The patient has no current complaints today. OBJECTIVE: VITAL SIGNS: Temperature 97.2, blood pressure 168/82, pulse of 71, respiration rate 19, O2 saturati on 99% on room air. HEENT: Anicteric sclerae. Oropharynx clear. CHEST: Minimal bibasilar crackles. CARDIAC: A II/ heart murmur, unchanged from before. ABDOMEN: Active bowel sounds. Soft, nondistended, nontender. EXTREMITIES: No clubbing, cyanosis or edema. LABORATORY DATA: WBC 15.6, hemoglobin 9.4, hematocrit 30.6, platelet count 83,000. Sodium 137, pot assium 4.9, chloride 111, carbon dioxide 21, BUN 26, creatinine 0.42, glucose 124. Liver enzymes no table for elevated AST of 99 and alkaline phosphatase of 254. Bilirubin and direct bilirubin were w ithin normal limits. Total protein down at 5.9, albumin low at 2.5. The calcium is at 8.1, phospho dale is 3.9 and magnesium is 2.2. ASSESSMENT AND PLAN: 1. Metastatic gastric carcinoma, undergoing chemotherapy and appears to be tolerating it well. 2. Status post sepsis and bacteremia, appears stable on current antibiotic. Recheck chest x-ray fo r followup of the left basilar pneumonia. 3. Nausea and vomiting. Decreased NG tube aspirate even after irrigation. Will consider clamping the tube. Dictated By: KOBY FRANCO MD DP/NTS Conf#: [id number] DID#: [id number]
[2016-11-18 21:11] VITALS: BP 163/77; RESP 20
[2016-11-19] MEDS: PANTOPRAZOLE 40 MG INJ IV SCH ×2 (05:29→18:14)
[2016-11-19] MEDS: METOCLOPRAMIDE 10 MG INJ IV SCH ×3 (05:29→18:14)
[2016-11-19 05:36] LABS: ADD SCAN DIFF NO
[2016-11-19 05:52] LABS: HEMATOCRIT 29.4 % (37.0-47.0); HEMOGLOBIN 9.5 g/dl (12.0-16.0); MEAN CORPUSCULAR HEMOGLOBIN 28.9 pg (29.0-33.0); MEAN CORPUSCULAR HGB CONC 32.3 g/dl (32.0-37.0); MEAN CORPUSCULAR VOLUME 89.4 fl (82.0-101.0); MEAN PLATELET VOLUME 12.2 fl (7.4-10.4); PLATELET COUNT 157 10^3/UL (140-415); RED BLOOD COUNT 3.29 10^6/ul (4.20-5.40); RED CELL DISTRIBUTION WIDTH 16.8 % (11.5-14.5); WHITE BLOOD COUNT 6.3 10^3/ul (4.8-10.8)
[2016-11-19 06:27] LABS: ALBUMIN 2.5 g/dl (3.3-4.9); POTASSIUM 4.6 mmol/L (3.5-5.1)
[2016-11-19 06:29] LABS: ALBUMIN/GLOBULIN RATIO 0.73; BILIRUBIN,DIRECT 0.3 mg/dl (0.00-0.20); BILIRUBIN,INDIRECT 0.6 mg/dl (0-1.1); BILIRUBIN,TOTAL 0.9 mg/dl (0.2-1.3); CREATININE 0.42 mg/dl (0.44-1.00); TOTAL PROTEIN 5.9 g/dl (6.1-8.1)
[2016-11-19 06:53] LABS: MAGNESIUM 2.1 mg/dl (1.7-2.5); PHOSPHORUS 4.3 mg/dl (2.5-4.9)
[2016-11-19 08:09] VITALS: BP 154/67; RESP 20
[2016-11-19] MEDS: ACCU-CHEK XX SCH ×2 (09:00→21:13)
[2016-11-19 09:37] LABS: LYMPHOCYTES # 0.4 10^3/ul (0.8-2.9); MONOCYTE # 0.1 10^3/ul (0.3-0.9); NEUTROPHIL # 5.7 10^3/ul (1.6-7.5)
[2016-11-19] MEDS: TPN 1,000 ML IV SCH ×2 (10:05→21:13)
--- NOTE | 2016-11-19 13:02 | CONS ---
Date/Time of Note Date/Time of Note DATE: 11/19/16 TIME: 13:01 Assessment/Plan Assessment/Plan Chief Complaint/Hosp Course SUBJECTIVE: No events overnight. The patient is alert, feels good. Family at bedside. NGT to suction ANTIMICROBIALS: 1. IV Rocephin. 2. Fluconazole. INDWELLINGS: Right chest Port-A-Cath, NG tube. PHYSICAL EXAMINATION: GENERAL: This is a fragile, cachectic elderly woman who is awake, in no distress. HEENT: Head atraumatic, normocephalic. Sclerae anicteric. Buccal mucosa dry. NECK: Supple. CHEST: Rise symmetrical. Breath sounds diminished to bases. HEART: S1, S2. ABDOMEN: Soft, bowel sounds present. EXTREMITIES: No cyanosis. ASSESSMENT: 1. Resolving sepsis. 2. Streptococcal bacteremia with repeat blood cultures negative. 3. Metastatic gastric CA with abdominal carcinomatosis. 4. Bowel obstructions secondary to above. 5. Leukocytosis secondary to Neupogen. PLAN: The patient remains stable. Complete antibiotics for 3 more days. Follow oncology recommendations. DW staff/pt Problems: Consultation Date/Type/Reason Admit Date/Time Oct 16, 2016 at 08:57 Type of Consultation: ID Referring Provider: KOBY FRANCO MD Exam/Review of Systems Vital Signs Vitals Vital Signs Date Time Temp Pulse Resp B/P Pulse Ox O2 Delivery O2 Flow Rate FiO2 11/19/16 08:09 98.8 89 20 154/67 98 11/17/16 06:18 Room Air Intake and Output 11/18/16 11/18/16 11/19/16 15:00 23:00 07:00 Intake Total 1450 ml 1060 ml 1000 ml Output Total 850 ml 950 ml Balance 1450 ml 210 ml 50 ml Results Result Diagram: 11/19/16 0505 11/19/16 0505 Results 24 hrs Laboratory Tests Test 11/18/16 20:36 11/19/16 05:05 11/19/16 08:46 Bedside Glucose 100 104 White Blood Count 6.3 # Red Blood Count 3.29 L Hemoglobin 9.5 L Hematocrit 29.4 L Mean Corpuscular Volume 89.4 Mean Corpuscular Hemoglobin 28.9 L Mean Corpuscular Hemoglobin Concent 32.3 Red Cell Distribution Width 16.8 H Platelet Count 157 # Mean Platelet Volume 12.2 H Neutrophils % 91.0 H Lymphocytes % 7.0 L Monocytes % 2.0 Neutrophils # 5.7 Lymphocytes # 0.4 L Monocytes # 0.1 L Sodium Level 141 Potassium Level 4.6 Chloride Level 105 Carbon Dioxide Level 26 Anion Gap 15 Blood Urea Nitrogen 25 H Creatinine 0.42 L Glucose Level 101 Calcium Level 8.0 L Phosphorus Level 4.3 Magnesium Level 2.1 Total Bilirubin 0.9 Direct Bilirubin 0.30 #H Indirect Bilirubin 0.6 Aspartate Amino Transf (AST/SGOT) 46 Alanine Aminotransferase (ALT/SGPT) 47 Alkaline Phosphatase 241 H Total Protein 5.9 L Albumin 2.5 L Globulin 3.40 H Albumin/Globulin Ratio 0.73 Medications Medications Current Medications Ondansetron HCl 4 mg 4 mg Q4H PRN IV NAUSEA AND/OR VOMITING Last administered on 11/15/16 08:25; Admin Dose 4 MG; Start 10/17/16 at 19:00 Total Parenteral Nutrition (Tpn) 1,000 ml @ 100 mls/hr Q10H IV Last administered on 11/19/16 10:05; Admin Dose 100 MLS/HR; Start 10/19/16 at 18:30 Fentanyl (Duragesic 12 Mcg/Hr Patch) 1 patch Q72H TRANSDERM Last administered on 11/18/16 18:21; Admin Dose 1 PATCH; Start 10/19/16 at 18:30 Hydromorphone HCl (Dilaudid) 1 mg Q4H PRN IV BREAKTHROUGH PAIN Last administered on 11/09/16 18:02; Admin Dose 1 MG; Start 10/19/16 at 23:00 Lorazepam (Ativan) 0.5 mg Q8H PRN IV anxiety, insomnia Last administered on 15:24; Admin Dose 0.5 MG; Start 10/21/16 at 18:00 Diagnostic Test (Pha) (Accu-Chek) 1 ea Q12 XX Last administered on 11/18/16 21 :43; Admin Dose 1 EA; Start 10/22/16 at 09:00 Metoclopramide HCl (Reglan) 5 mg Q6 IV Last administered on 11/19/16 12:25; Admin Dose 5 MG; Start 10/23/16 at 00:00 Dexamethasone (Decadron) 10 mg Q7D IV Last administered on 11/03/16 21:48; Admin Dose 10 MG; Start 10/27/16 at 22:00; Status Future Hold Dexamethasone (Decadron) 10 mg Q7D IV Last administered on 11/04/16 04:32; Admin Dose 10 MG; Start 10/28/16 at 04:00; Status Future Hold Enalaprilat (Vasotec Iv) 0.625 mg Q4H PRN IV ELEVATED BLOOD PRESSURE Last administered on 11/07/16 13:38; Admin Dose 0.625 MG; Start 10/29/16 at 10:00 Clonidine HCl (Catapres-Tts 2 Patch) 1 patch Q7D TRANSDERM Last administered on 11/17/16 22:23; Admin Dose 1 PATCH; Start 11/03/16 at 18:30 Lidocaine 15 ml 15 ml QID PRN PO SORE THROAT Last administered on 11/10/16 12: 53; Admin Dose 15 ML; Start 11/08/16 at 14:00 Fluconazole/ Sodium Chloride 50 ml @ 50 mls/hr Q24H IVPB Last administered on 18:21; Admin Dose 50 MLS/HR; Start 11/08/16 at 17:00 Acetaminophen (Ofirmev 1000mg/ 100ml Iv) 100 ml @ 400 mls/hr Q6H PRN IVPB FEVER Last administered on 11/12/16 02:29; Admin Dose 400 MLS/HR; Start at 16:00 Pantoprazole 40 mg 40 mg BID@06,18 IV Last administered on 11/19/16 05:29; Admin Dose 40 MG; Start 11/11/16 at 06:00 Ceftriaxone Sodium (Rocephin) 50 ml @ 100 mls/hr Q24H IVPB Last administered on 11/18/16 13:05; Admin Dose 100 MLS/HR; Start 11/12/16 at 13:30 Miscellaneous Information (* Miscellaneous Pharmacy Order) START CHEMO 0N ... ONCE XX ; Start 11/15/16 at 15:30 Miscellaneous Information (* Miscellaneous Pharmacy Order) CHEMO MEDS FOR TOMORROW--RAMUCIRU... ONCE XX ; Start 11/15/16 at 15:30 KJ HUYNH NP November 19, 2016 13:02
--- NOTE | 2016-11-19 13:26 | PN ---
Date/Time of Note Date/Time of Note DATE: 11/19/16 TIME: 13:24 Assessment/Plan VTE Prophylaxis VTE Prophylaxis Intervention: anti-embolic stocking, other Lines/Catheters IV Catheter Type (from Nrs): PORT A CATH Urinary Cath still in place: No Assessment/Plan Assessment/Plan Pt is stable. Chemotherapy is in progress but odds of success are low. She is alert and wants to continue to try to be treated. Subjective 24 Hr Interval Summary Free Text/Dictation Pt is resting comfortably Exam/Review of Systems Vital Signs Vitals Vital Signs Date Time Temp Pulse Resp B/P Pulse Ox O2 Delivery O2 Flow Rate FiO2 11/19/16 08:09 98.8 89 20 154/67 98 11/17/16 06:18 Room Air Intake and Output 11/18/16 11/18/16 11/19/16 15:00 23:00 07:00 Intake Total 1450 ml 1060 ml 1000 ml Output Total 850 ml 950 ml Balance 1450 ml 210 ml 50 ml Exam Head: normocephalic ENMT: other (ng tube in place) Neck: supple Respiratory: clear to auscultation Cardiovascular: regular rate and rhythm Gastrointestinal: soft Results Result Diagram: 11/19/16 0505 11/19/16 0505 Results 24 hrs Laboratory Tests Test 11/18/16 20:36 11/19/16 05:05 11/19/16 08:46 Bedside Glucose 100 104 White Blood Count 6.3 # Red Blood Count 3.29 L Hemoglobin 9.5 L Hematocrit 29.4 L Mean Corpuscular Volume 89.4 Mean Corpuscular Hemoglobin 28.9 L Mean Corpuscular Hemoglobin Concent 32.3 Red Cell Distribution Width 16.8 H Platelet Count 157 # Mean Platelet Volume 12.2 H Neutrophils % 91.0 H Lymphocytes % 7.0 L Monocytes % 2.0 Neutrophils # 5.7 Lymphocytes # 0.4 L Monocytes # 0.1 L Sodium Level 141 Potassium Level 4.6 Chloride Level 105 Carbon Dioxide Level 26 Anion Gap 15 Blood Urea Nitrogen 25 H Creatinine 0.42 L Glucose Level 101 Calcium Level 8.0 L Phosphorus Level 4.3 Magnesium Level 2.1 Total Bilirubin 0.9 Direct Bilirubin 0.30 #H Indirect Bilirubin 0.6 Aspartate Amino Transf (AST/SGOT) 46 Alanine Aminotransferase (ALT/SGPT) 47 Alkaline Phosphatase 241 H Total Protein 5.9 L Albumin 2.5 L Globulin 3.40 H Albumin/Globulin Ratio 0.73 Medications Medications Current Medications Ondansetron HCl 4 mg 4 mg Q4H PRN IV NAUSEA AND/OR VOMITING Last administered on 11/15/16 08:25; Admin Dose 4 MG; Start 10/17/16 at 19:00 Total Parenteral Nutrition (Tpn) 1,000 ml @ 100 mls/hr Q10H IV Last administered on 11/19/16 10:05; Admin Dose 100 MLS/HR; Start 10/19/16 at 18:30 Fentanyl (Duragesic 12 Mcg/Hr Patch) 1 patch Q72H TRANSDERM Last administered on 11/18/16 18:21; Admin Dose 1 PATCH; Start 10/19/16 at 18:30 Hydromorphone HCl (Dilaudid) 1 mg Q4H PRN IV BREAKTHROUGH PAIN Last administered on 11/09/16 18:02; Admin Dose 1 MG; Start 10/19/16 at 23:00 Lorazepam (Ativan) 0.5 mg Q8H PRN IV anxiety, insomnia Last administered on 15:24; Admin Dose 0.5 MG; Start 10/21/16 at 18:00 Diagnostic Test (Pha) (Accu-Chek) 1 ea Q12 XX Last administered on 11/18/16 21 :43; Admin Dose 1 EA; Start 10/22/16 at 09:00 Metoclopramide HCl (Reglan) 5 mg Q6 IV Last administered on 11/19/16 12:25; Admin Dose 5 MG; Start 10/23/16 at 00:00 Dexamethasone (Decadron) 10 mg Q7D IV Last administered on 11/03/16 21:48; Admin Dose 10 MG; Start 10/27/16 at 22:00; Status Future Hold Dexamethasone (Decadron) 10 mg Q7D IV Last administered on 11/04/16 04:32; Admin Dose 10 MG; Start 10/28/16 at 04:00; Status Future Hold Enalaprilat (Vasotec Iv) 0.625 mg Q4H PRN IV ELEVATED BLOOD PRESSURE Last administered on 11/07/16 13:38; Admin Dose 0.625 MG; Start 10/29/16 at 10:00 Clonidine HCl (Catapres-Tts 2 Patch) 1 patch Q7D TRANSDERM Last administered on 11/17/16 22:23; Admin Dose 1 PATCH; Start 11/03/16 at 18:30 Lidocaine 15 ml 15 ml QID PRN PO SORE THROAT Last administered on 11/10/16 12: 53; Admin Dose 15 ML; Start 11/08/16 at 14:00 Fluconazole/ Sodium Chloride 50 ml @ 50 mls/hr Q24H IVPB Last administered on 18:21; Admin Dose 50 MLS/HR; Start 11/08/16 at 17:00 Acetaminophen (Ofirmev 1000mg/ 100ml Iv) 100 ml @ 400 mls/hr Q6H PRN IVPB FEVER Last administered on 11/12/16 02:29; Admin Dose 400 MLS/HR; Start at 16:00 Pantoprazole 40 mg 40 mg BID@06,18 IV Last administered on 11/19/16 05:29; Admin Dose 40 MG; Start 11/11/16 at 06:00 Ceftriaxone Sodium (Rocephin) 50 ml @ 100 mls/hr Q24H IVPB Last administered on 11/18/16 13:05; Admin Dose 100 MLS/HR; Start 11/12/16 at 13:30 Miscellaneous Information (* Miscellaneous Pharmacy Order) START CHEMO 0N ... ONCE XX ; Start 11/15/16 at 15:30 Miscellaneous Information (* Miscellaneous Pharmacy Order) CHEMO MEDS FOR TOMORROW--RAMUCIRU... ONCE XX ; Start 11/15/16 at 15:30 CHACHA LEDESMA MD November 19, 2016 13:26
[2016-11-19] MEDS: CEFTRIAXONE 1 GM/50 ML (PMX) 50 ML IVPB SCH (15:13)
[2016-11-19] MEDS: FLUCONAZOLE 100 MG/NS (PMX) 50 ML IVPB SCH (16:42)
--- NOTE | 2016-11-19 18:27 | PN ---
DATE: 11/19/2016 SUBJECTIVE: Patient awake, alert, feeling well, no abdominal pain or nausea. OBJECTIVE VITAL SIGNS: Temperature 98.8, blood pressure 154/67, pulse of 89, respiration rate 20, O2 saturati on 98%. HEENT: Anicteric sclerae. Oropharynx clear. Left nasogastric tube draining significant amount of green aspirates. LUNGS: Notable for minimal basilar rales. CARDIAC: 2/6 heart murmur. ABDOMEN: Active bowel sounds. Nondistended, nontender. EXTREMITIES: No clubbing, cyanosis, or edema. LABORATORY DATA: WBC 6.3, hemoglobin 9.5, hematocrit 29.4, platelet count 157,000. Sodium 141, pot assium 4.6, chloride 105, carbon dioxide 26, BUN 25, creatinine 0.42, glucose 101. Calcium 8.0, mychal sphorus 4.3, magnesium 2.1, total bilirubin at 0.9, direct bilirubin is 0.3, AST is normal today. C hest x-ray done yesterday showed a decrease in the left lower lobe patchy consolidation and clearing of the right lower lobe patchy consolidation. There is a small left pleural effusion. ASSESSMENT AND PLAN: 1. Gastric cancer with abdominal metastases. Patient tolerating chemotherapy well. Continue curre nt treatment regimen. 2. Basilar pneumonia clearing up with IV ceftriaxone. 3. Small-bowel obstruction. Continue NG tube suction and total parenteral nutrition. Dictated By: KOBY FRANCO MD DP/NTS Conf#: [id number] DID#: [id number]
[2016-11-19 20:35] VITALS: BP 142/69; RESP 20
[2016-11-20] MEDS: METOCLOPRAMIDE 10 MG INJ IV SCH ×4 (00:26→17:50)
[2016-11-20] MEDS: PANTOPRAZOLE 40 MG INJ IV SCH ×2 (05:10→17:50)
[2016-11-20 05:30] LABS: ADD SCAN DIFF NO
[2016-11-20 05:37] LABS: ABNORMAL IP MESSAGE 1; HEMATOCRIT 24.7 % (37.0-47.0); HEMOGLOBIN 8.2 g/dl (12.0-16.0); MEAN CORPUSCULAR HEMOGLOBIN 29.4 pg (29.0-33.0); MEAN CORPUSCULAR HGB CONC 33.2 g/dl (32.0-37.0); MEAN CORPUSCULAR VOLUME 88.5 fl (82.0-101.0); MEAN PLATELET VOLUME 11.8 fl (7.4-10.4); PLATELET COUNT 142 10^3/UL (140-415); RED BLOOD COUNT 2.79 10^6/ul (4.20-5.40); RED CELL DISTRIBUTION WIDTH 16.5 % (11.5-14.5); WHITE BLOOD COUNT 3.6 10^3/ul (4.8-10.8)
[2016-11-20 05:50] LABS: POTASSIUM 4.3 mmol/L (3.5-5.1)
[2016-11-20 05:52] LABS: CREATININE 0.35 mg/dl (0.44-1.00)
[2016-11-20 05:53] LABS: PHOSPHORUS 3.9 mg/dl (2.5-4.9)
[2016-11-20 05:54] LABS: CALCIUM 7.8 mg/dl (8.4-10.2); MAGNESIUM 1.9 mg/dl (1.7-2.5)
[2016-11-20 08:04] LABS: LYMPHOCYTES # 0.4 10^3/ul (0.8-2.9); NEUTROPHIL # 2.8 10^3/ul (1.6-7.5)
[2016-11-20 08:10] VITALS: BP 137/64; RESP 20
[2016-11-20] MEDS: TPN 1,000 ML IV SCH ×2 (08:26→17:55)
[2016-11-20] MEDS: ACCU-CHEK XX SCH ×2 (08:32→21:00)
--- NOTE | 2016-11-20 11:26 | PN ---
Date/Time of Note Date/Time of Note DATE: 11/20/16 TIME: 11:24 Assessment/Plan VTE Prophylaxis VTE Prophylaxis Intervention: anti-embolic stocking Lines/Catheters IV Catheter Type (from Nrs): port-a-cath Urinary Cath still in place: No Assessment/Plan Assessment/Plan Pt is stable. Counts are better. Chemotherapy may be resumed next week. No new suggestions today. Continue TPN. Subjective 24 Hr Interval Summary Free Text/Dictation Pt resting comfortably in bed. No nausea, vomiting or pain now. Exam/Review of Systems Vital Signs Vitals Vital Signs Date Time Temp Pulse Resp B/P Pulse Ox O2 Delivery O2 Flow Rate FiO2 11/20/16 08:10 98.1 88 20 137/64 98 11/17/16 06:18 Room Air Intake and Output 11/19/16 11/19/16 11/20/16 15:00 23:00 07:00 Intake Total 500 ml 1560 ml 800 ml Output Total 250 ml 1300 ml Balance 500 ml 1310 ml -500 ml Exam Constitutional: alert, oriented Head: normocephalic ENMT: other (NG in right side of nose) Neck: supple Respiratory: clear to auscultation Cardiovascular: regular rate and rhythm Gastrointestinal: non-tender, soft Extremities: other (decreased muscle mass) Results Result Diagram: 11/20/16 0505 11/20/16 0500 Results 24 hrs Laboratory Tests Test 11/19/16 21:11 11/20/16 05:00 11/20/16 05:05 11/20/16 08:32 Bedside Glucose 110 89 Sodium Level 138 Potassium Level 4.3 Chloride Level 105 Carbon Dioxide Level 26 Anion Gap 11 Blood Urea Nitrogen 23 H Creatinine 0.35 L Glucose Level 111 Calcium Level 7.8 L Phosphorus Level 3.9 Magnesium Level 1.9 White Blood Count 3.6 #L Red Blood Count 2.79 L Hemoglobin 8.2 L Hematocrit 24.7 L Mean Corpuscular Volume 88.5 Mean Corpuscular Hemoglobin 29.4 Mean Corpuscular Hemoglobin Concent 33.2 Red Cell Distribution Width 16.5 H Platelet Count 142 Mean Platelet Volume 11.8 H Neutrophils % 79.0 H Band Neutrophils % 8.0 H Lymphocytes % 12.0 L Monocytes % 1.0 Neutrophils # 2.8 Lymphocytes # 0.4 L Monocytes # 0.0 L Medications Medications Current Medications Ondansetron HCl 4 mg 4 mg Q4H PRN IV NAUSEA AND/OR VOMITING Last administered on 11/15/16 08:25; Admin Dose 4 MG; Start 10/17/16 at 19:00 Total Parenteral Nutrition (Tpn) 1,000 ml @ 100 mls/hr Q10H IV Last administered on 11/20/16 08:26; Admin Dose 100 MLS/HR; Start 10/19/16 at 18:30 Fentanyl (Duragesic 12 Mcg/Hr Patch) 1 patch Q72H TRANSDERM Last administered on 11/18/16 18:21; Admin Dose 1 PATCH; Start 10/19/16 at 18:30 Hydromorphone HCl (Dilaudid) 1 mg Q4H PRN IV BREAKTHROUGH PAIN Last administered on 11/09/16 18:02; Admin Dose 1 MG; Start 10/19/16 at 23:00 Lorazepam (Ativan) 0.5 mg Q8H PRN IV anxiety, insomnia Last administered on 15:24; Admin Dose 0.5 MG; Start 10/21/16 at 18:00 Diagnostic Test (Pha) (Accu-Chek) 1 ea Q12 XX Last administered on 11/20/16 08 :32; Admin Dose 1 EA; Start 10/22/16 at 09:00 Metoclopramide HCl (Reglan) 5 mg Q6 IV Last administered on 11/20/16 05:10; Admin Dose 5 MG; Start 10/23/16 at 00:00 Dexamethasone (Decadron) 10 mg Q7D IV Last administered on 11/03/16 21:48; Admin Dose 10 MG; Start 10/27/16 at 22:00; Status Future Hold Dexamethasone (Decadron) 10 mg Q7D IV Last administered on 11/04/16 04:32; Admin Dose 10 MG; Start 10/28/16 at 04:00; Status Future Hold Enalaprilat (Vasotec Iv) 0.625 mg Q4H PRN IV ELEVATED BLOOD PRESSURE Last administered on 11/07/16 13:38; Admin Dose 0.625 MG; Start 10/29/16 at 10:00 Clonidine HCl (Catapres-Tts 2 Patch) 1 patch Q7D TRANSDERM Last administered on 11/17/16 22:23; Admin Dose 1 PATCH; Start 11/03/16 at 18:30 Lidocaine 15 ml 15 ml QID PRN PO SORE THROAT Last administered on 11/10/16 12: 53; Admin Dose 15 ML; Start 11/08/16 at 14:00 Fluconazole/ Sodium Chloride 50 ml @ 50 mls/hr Q24H IVPB Last administered on 16:42; Admin Dose 50 MLS/HR; Start 11/08/16 at 17:00 Acetaminophen (Ofirmev 1000mg/ 100ml Iv) 100 ml @ 400 mls/hr Q6H PRN IVPB FEVER Last administered on 11/12/16 02:29; Admin Dose 400 MLS/HR; Start at 16:00 Pantoprazole 40 mg 40 mg BID@06,18 IV Last administered on 11/20/16 05:10; Admin Dose 40 MG; Start 11/11/16 at 06:00 Ceftriaxone Sodium (Rocephin) 50 ml @ 100 mls/hr Q24H IVPB Last administered on 11/19/16 15:13; Admin Dose 100 MLS/HR; Start 11/12/16 at 13:30 Miscellaneous Information (* Miscellaneous Pharmacy Order) START CHEMO 0N ... ONCE XX ; Start 11/15/16 at 15:30 Miscellaneous Information (* Miscellaneous Pharmacy Order) CHEMO MEDS FOR TOMORROW--RAMUCIRU... ONCE XX ; Start 11/15/16 at 15:30 CHACHA LEDESMA MD November 20, 2016 11:26
[2016-11-20 12:00] VITALS: BP 132/84; PULSE 82; RESP 18
--- NOTE | 2016-11-20 13:36 | CONS ---
Date/Time of Note Date/Time of Note DATE: 11/20/16 TIME: 13:36 Assessment/Plan Assessment/Plan Chief Complaint/Hosp Course SUBJECTIVE: No events overnight. The patient is alert, feels good. Family at bedside. NGT to suction ANTIMICROBIALS: 1. IV Rocephin. 2. Fluconazole. INDWELLINGS: Right chest Port-A-Cath, NG tube. PHYSICAL EXAMINATION: GENERAL: This is a fragile, cachectic elderly woman who is awake, in no distress. HEENT: Head atraumatic, normocephalic. Sclerae anicteric. Buccal mucosa dry. NECK: Supple. CHEST: Rise symmetrical. Breath sounds diminished to bases. HEART: S1, S2. ABDOMEN: Soft, bowel sounds present. EXTREMITIES: No cyanosis. ASSESSMENT: 1. Resolving sepsis. 2. Streptococcal bacteremia with repeat blood cultures negative. 3. Metastatic gastric CA with abdominal carcinomatosis. 4. Bowel obstructions secondary to above. 5. Leukocytosis secondary to Neupogen. PLAN: The patient remains stable. Complete antibiotics for 2 more days. Follow oncology recommendations. DW staff/pt Problems: Consultation Date/Type/Reason Admit Date/Time Oct 16, 2016 at 08:57 Type of Consultation: ID Referring Provider: KOBY FRANCO MD Exam/Review of Systems Vital Signs Vitals Vital Signs Date Time Temp Pulse Resp B/P Pulse Ox O2 Delivery O2 Flow Rate FiO2 11/20/16 08:10 98.1 88 20 137/64 98 11/17/16 06:18 Room Air Intake and Output 11/19/16 11/19/16 11/20/16 15:00 23:00 07:00 Intake Total 500 ml 1560 ml 800 ml Output Total 250 ml 1300 ml Balance 500 ml 1310 ml -500 ml Results Result Diagram: 11/20/16 0505 11/20/16 0500 Results 24 hrs Laboratory Tests Test 11/19/16 21:11 11/20/16 05:00 11/20/16 05:05 11/20/16 08:32 Bedside Glucose 110 89 Sodium Level 138 Potassium Level 4.3 Chloride Level 105 Carbon Dioxide Level 26 Anion Gap 11 Blood Urea Nitrogen 23 H Creatinine 0.35 L Glucose Level 111 Calcium Level 7.8 L Phosphorus Level 3.9 Magnesium Level 1.9 White Blood Count 3.6 #L Red Blood Count 2.79 L Hemoglobin 8.2 L Hematocrit 24.7 L Mean Corpuscular Volume 88.5 Mean Corpuscular Hemoglobin 29.4 Mean Corpuscular Hemoglobin Concent 33.2 Red Cell Distribution Width 16.5 H Platelet Count 142 Mean Platelet Volume 11.8 H Neutrophils % 79.0 H Band Neutrophils % 8.0 H Lymphocytes % 12.0 L Monocytes % 1.0 Neutrophils # 2.8 Lymphocytes # 0.4 L Monocytes # 0.0 L Medications Medications Current Medications Ondansetron HCl 4 mg 4 mg Q4H PRN IV NAUSEA AND/OR VOMITING Last administered on 11/15/16 08:25; Admin Dose 4 MG; Start 10/17/16 at 19:00 Total Parenteral Nutrition (Tpn) 1,000 ml @ 100 mls/hr Q10H IV Last administered on 11/20/16 08:26; Admin Dose 100 MLS/HR; Start 10/19/16 at 18:30 Fentanyl (Duragesic 12 Mcg/Hr Patch) 1 patch Q72H TRANSDERM Last administered on 11/18/16 18:21; Admin Dose 1 PATCH; Start 10/19/16 at 18:30 Hydromorphone HCl (Dilaudid) 1 mg Q4H PRN IV BREAKTHROUGH PAIN Last administered on 11/09/16 18:02; Admin Dose 1 MG; Start 10/19/16 at 23:00 Lorazepam (Ativan) 0.5 mg Q8H PRN IV anxiety, insomnia Last administered on 15:24; Admin Dose 0.5 MG; Start 10/21/16 at 18:00 Diagnostic Test (Pha) (Accu-Chek) 1 ea Q12 XX Last administered on 11/20/16 08 :32; Admin Dose 1 EA; Start 10/22/16 at 09:00 Metoclopramide HCl (Reglan) 5 mg Q6 IV Last administered on 11/20/16 12:02; Admin Dose 5 MG; Start 10/23/16 at 00:00 Dexamethasone (Decadron) 10 mg Q7D IV Last administered on 11/03/16 21:48; Admin Dose 10 MG; Start 10/27/16 at 22:00; Status Future Hold Dexamethasone (Decadron) 10 mg Q7D IV Last administered on 11/04/16 04:32; Admin Dose 10 MG; Start 10/28/16 at 04:00; Status Future Hold Enalaprilat (Vasotec Iv) 0.625 mg Q4H PRN IV ELEVATED BLOOD PRESSURE Last administered on 11/07/16 13:38; Admin Dose 0.625 MG; Start 10/29/16 at 10:00 Clonidine HCl (Catapres-Tts 2 Patch) 1 patch Q7D TRANSDERM Last administered on 11/17/16 22:23; Admin Dose 1 PATCH; Start 11/03/16 at 18:30 Lidocaine 15 ml 15 ml QID PRN PO SORE THROAT Last administered on 11/10/16 12: 53; Admin Dose 15 ML; Start 11/08/16 at 14:00 Fluconazole/ Sodium Chloride 50 ml @ 50 mls/hr Q24H IVPB Last administered on 16:42; Admin Dose 50 MLS/HR; Start 11/08/16 at 17:00 Acetaminophen (Ofirmev 1000mg/ 100ml Iv) 100 ml @ 400 mls/hr Q6H PRN IVPB FEVER Last administered on 11/12/16 02:29; Admin Dose 400 MLS/HR; Start at 16:00 Pantoprazole 40 mg 40 mg BID@06,18 IV Last administered on 11/20/16 05:10; Admin Dose 40 MG; Start 11/11/16 at 06:00 Ceftriaxone Sodium (Rocephin) 50 ml @ 100 mls/hr Q24H IVPB Last administered on 11/19/16 15:13; Admin Dose 100 MLS/HR; Start 11/12/16 at 13:30 Miscellaneous Information (* Miscellaneous Pharmacy Order) START CHEMO 0N ... ONCE XX ; Start 11/15/16 at 15:30 Miscellaneous Information (* Miscellaneous Pharmacy Order) CHEMO MEDS FOR TOMORROW--RAMUCIRU... ONCE XX ; Start 11/15/16 at 15:30 KJ HUYNH NP November 20, 2016 13:36
[2016-11-20] MEDS: ONDANSETRON 4 MG INJ IV PRN (13:57)
[2016-11-20] MEDS: CEFTRIAXONE 1 GM/50 ML (PMX) 50 ML IVPB SCH (13:57)
[2016-11-20] MEDS ORDERED: DIPHENHYDRAMINE 50 MG INJ IV ONE (15:00)
[2016-11-20] MEDS ORDERED: ACETAMINOPHEN 1000MG/100ML IV 100 ML IVPB PRN (15:00)
--- NOTE | 2016-11-20 15:13 | PN ---
DATE: 11/20/2016 SUBJECTIVE: The patient is awake, alert. Had mild nausea this morning, but would like to have some ice chips or ice water for a dry mouth. OBJECTIVE: VITAL SIGNS: Temperature 98.1, blood pressure 137/64, pulse of 88, respiration rate 20, O2 saturati ons 98% on room air. HEENT: Pupils are equally round and reactive to light. Oropharynx clear. Anicteric sclerae. CHEST: Lungs are clear to auscultation anteriorly. CARDIAC: II/ systolic murmur. ABDOMEN: Active bowel sounds. Nondistended, nontender. EXTREMITIES: No clubbing, cyanosis, or edema. LABORATORY DATA: WBC 3.6, hemoglobin 8.2, hematocrit 24.7, platelet count 142,000. Sodium 138, pot assium 4.3, BUN 23, creatinine 0.35, glucose 111. ASSESSMENT AND PLAN: 1. Metastatic gastric cancer, undergoing chemotherapy, with a gradual drop in WBC and hemoglobin an d hematocrit. Will restart Neupogen, transfuse 1 unit of packed red blood cells and continue to mon itor over the weekend. 2. Sepsis with bacteremia. Clinically stable on IV ceftriaxone and fluconazole. Last chest x-ray also shows improvement in bibasilar infiltrates. 3. Blood pressure is stable on the current medications. Dictated By: KOBY FRANCO MD DP/OH Conf#: [id number] DID#: [id number]
[2016-11-20] MEDS: FLUCONAZOLE 100 MG/NS (PMX) 50 ML IVPB SCH (16:49)
[2016-11-20] MEDS: FILGRASTIM 300 MCG INJ SC SCH (16:58)
[2016-11-20 19:46] VITALS: BP 163/73; RESP 20
[2016-11-21] MEDS: METOCLOPRAMIDE 10 MG INJ IV SCH ×4 (00:37→18:00)
[2016-11-21] MEDS: TPN 1,000 ML IV SCH ×3 (04:09→20:34)
[2016-11-21 05:50] LABS: ADD SCAN DIFF NO
[2016-11-21 05:56] LABS: ABNORMAL IP MESSAGE 1; HEMATOCRIT 27.8 % (37.0-47.0); HEMOGLOBIN 9.2 g/dl (12.0-16.0); MEAN CORPUSCULAR HEMOGLOBIN 29.4 pg (29.0-33.0); MEAN CORPUSCULAR HGB CONC 33.1 g/dl (32.0-37.0); MEAN CORPUSCULAR VOLUME 88.8 fl (82.0-101.0); MEAN PLATELET VOLUME 12.1 fl (7.4-10.4); PLATELET COUNT 137 10^3/UL (140-415); RED BLOOD COUNT 3.13 10^6/ul (4.20-5.40); RED CELL DISTRIBUTION WIDTH 16.5 % (11.5-14.5); WHITE BLOOD COUNT 22.6 10^3/ul (4.8-10.8)
[2016-11-21] MEDS: PANTOPRAZOLE 40 MG INJ IV SCH ×2 (06:09→18:00)
[2016-11-21 06:29] LABS: CREATININE 0.39 mg/dl (0.44-1.00)
[2016-11-21 06:30] LABS: CALCIUM 7.8 mg/dl (8.4-10.2)
[2016-11-21 08:02] VITALS: BP 166/73; RESP 15
[2016-11-21] MEDS: ACCU-CHEK XX SCH ×2 (09:00→21:00)
[2016-11-21 10:33] LABS: EOSINOPHILS # 0.2 10^3/ul (0.0-0.5); LYMPHOCYTES # 0.9 10^3/ul (0.8-2.9); MONOCYTE # 0.2 10^3/ul (0.3-0.9); MYELOCYTES # 0.2; NEUTROPHIL # 17.2 10^3/ul (1.6-7.5)
--- NOTE | 2016-11-21 12:44 | PN ---
Date/Time of Note Date/Time of Note DATE: 11/21/16 TIME: 12:43 Assessment/Plan VTE Prophylaxis VTE Prophylaxis Intervention: other Lines/Catheters IV C[facility]ter Type (from [facility] val cath Urinary Cath still in place: No Assessment/Plan Chief Complaint/Hosp Course 1. Metastatic gastric cancer, undergoing chemotherapy, with a gradual drop in WBC and hemoglobin and hematocrit. Will restart Neupogen, transfuse 1 unit of packed red blood cells and continue to monitor over the weekend. 2. Sepsis with bacteremia. Clinically stable on IV ceftriaxone and fluconazole. Last chest x-ray also shows improvement in bibasilar infiltrates. 3. Blood pressure is stable on the current medications. Problems: Subjective 24 Hr Interval Summary Free Text/Dictation Patient has no complaints Exam/Review of Systems Vital Signs Vitals Vital Signs Date Time Temp Pulse Resp B/P Pulse Ox O2 Delivery O2 Flow Rate FiO2 11/21/16 08:02 98.0 77 15 166/73 95 11/20/16 12:00 Room Air Intake and Output 11/20/16 11/20/16 11/21/16 15:00 23:00 07:00 Intake Total 250 ml 1150 ml 1100 ml Output Total 1020 ml 550 ml Balance 250 ml 130 ml 550 ml Exam Constitutional: well developed Head: atraumatic, normocephalic Neck: supple Respiratory: clear to auscultation Cardiovascular: regular rate and rhythm Gastrointestinal: non-tender, soft Extremities: normal pulses Results Result Diagram: 11/21/16 0445 11/21/16 0445 Results 24 hrs Laboratory Tests Test 11/20/16 21:09 11/21/16 04:45 11/21/16 09:26 Bedside Glucose 108 105 White Blood Count 22.6 #H Red Blood Count 3.13 L Hemoglobin 9.2 L Hematocrit 27.8 L Mean Corpuscular Volume 88.8 Mean Corpuscular Hemoglobin 29.4 Mean Corpuscular Hemoglobin Concent 33.1 Red Cell Distribution Width 16.5 H Platelet Count 137 L Mean Platelet Volume 12.1 H Neutrophils % 76.0 Band Neutrophils % 14.0 H Lymphocytes % 4.0 L Monocytes % 1.0 Eosinophils % 1.0 Basophils % Metamyelocytes % 3.0 H Myelocytes % 1.0 H Neutrophils # 17.2 H Lymphocytes # 0.9 Monocytes # 0.2 L Eosinophils # 0.2 Basophils # Metamyelocytes # 0.7 Myelocytes # 0.2 Sodium Level 138 Potassium Level 4.0 Chloride Level 106 Carbon Dioxide Level 24 Anion Gap 12 Blood Urea Nitrogen 24 H Creatinine 0.39 L Glucose Level 91 Calcium Level 7.8 L Medications Medications Current Medications Ondansetron HCl 4 mg 4 mg Q4H PRN IV NAUSEA AND/OR VOMITING Last administered on 11/20/16 13:57; Admin Dose 4 MG; Start 10/17/16 at 19:00 Total Parenteral Nutrition (Tpn) 1,000 ml @ 100 mls/hr Q10H IV Last administered on 11/21/16 08:35; Admin Dose 100 MLS/HR; Start 10/19/16 at 18:30 Fentanyl (Duragesic 12 Mcg/Hr Patch) 1 patch Q72H TRANSDERM Last administered on 11/18/16 18:21; Admin Dose 1 PATCH; Start 10/19/16 at 18:30 Hydromorphone HCl (Dilaudid) 1 mg Q4H PRN IV BREAKTHROUGH PAIN Last administered on 11/09/16 18:02; Admin Dose 1 MG; Start 10/19/16 at 23:00 Lorazepam (Ativan) 0.5 mg Q8H PRN IV anxiety, insomnia Last administered on 15:24; Admin Dose 0.5 MG; Start 10/21/16 at 18:00 Diagnostic Test (Pha) (Accu-Chek) 1 ea Q12 XX Last administered on 11/21/16 09 :00; Admin Dose 1 EA; Start 10/22/16 at 09:00 Metoclopramide HCl (Reglan) 5 mg Q6 IV Last administered on 11/21/16 12:21; Admin Dose 5 MG; Start 10/23/16 at 00:00 Dexamethasone (Decadron) 10 mg Q7D IV Last administered on 11/03/16 21:48; Admin Dose 10 MG; Start 10/27/16 at 22:00; Status Future Hold Dexamethasone (Decadron) 10 mg Q7D IV Last administered on 11/04/16 04:32; Admin Dose 10 MG; Start 10/28/16 at 04:00; Status Future Hold Enalaprilat (Vasotec Iv) 0.625 mg Q4H PRN IV ELEVATED BLOOD PRESSURE Last administered on 11/07/16 13:38; Admin Dose 0.625 MG; Start 10/29/16 at 10:00 Clonidine HCl (Catapres-Tts 2 Patch) 1 patch Q7D TRANSDERM Last administered on 11/17/16 22:23; Admin Dose 1 PATCH; Start 11/03/16 at 18:30 Lidocaine 15 ml 15 ml QID PRN PO SORE THROAT Last administered on 11/10/16 12: 53; Admin Dose 15 ML; Start 11/08/16 at 14:00 Fluconazole/ Sodium Chloride 50 ml @ 50 mls/hr Q24H IVPB Last administered on 16:49; Admin Dose 50 MLS/HR; Start 11/08/16 at 17:00 Acetaminophen (Ofirmev 1000mg/ 100ml Iv) 100 ml @ 400 mls/hr Q6H PRN IVPB FEVER Last administered on 11/12/16 02:29; Admin Dose 400 MLS/HR; Start at 16:00 Pantoprazole 40 mg 40 mg BID@06,18 IV Last administered on 11/21/16 06:09; Admin Dose 40 MG; Start 11/11/16 at 06:00 Ceftriaxone Sodium (Rocephin) 50 ml @ 100 mls/hr Q24H IVPB Last administered on 11/20/16 13:57; Admin Dose 100 MLS/HR; Start 11/12/16 at 13:30 Miscellaneous Information (* Miscellaneous Pharmacy Order) START CHEMO 0N ... ONCE XX ; Start 11/15/16 at 15:30 Miscellaneous Information (* Miscellaneous Pharmacy Order) CHEMO MEDS FOR TOMORROW--RAMUCIRU... ONCE XX ; Start 11/15/16 at 15:30 Filgrastim (Neupogen) 300 mcg DAILY@17 SC Last administered on 11/20/16 16:58 ; Admin Dose 300 MCG; Start 11/20/16 at 17:00; Stop 11/24/16 at 01:00 ULISES MCCAULEY November 21, 2016 12:44
[2016-11-21] MEDS: CEFTRIAXONE 1 GM/50 ML (PMX) 50 ML IVPB SCH (12:59)
[2016-11-21] MEDS: FILGRASTIM 300 MCG INJ SC SCH (17:00)
[2016-11-21] MEDS: FLUCONAZOLE 100 MG/NS (PMX) 50 ML IVPB SCH (17:08)
[2016-11-21] MEDS: FENTAnyl PATCH 12 MCG/HR TRANSDERM SCH (18:31)
[2016-11-21 19:21] VITALS: BP 142/75; RESP 20
--- NOTE | 2016-11-21 19:26 | CONS ---
Date/Time of Note Date/Time of Note DATE: 11/21/16 TIME: 19:25 Assessment/Plan Assessment/Plan Chief Complaint/Hosp Course ID PROGRESS NOTE ABX DAY #12 / 14 total day course => Ceftriaxone + Fluconazole 24H INTERVAL SUMMARY * A/A/O -- responsive, doing OK, pleasant, polite, NAD * NGT, cachexia, family present * WBC elevated on Dexamethasone => IV Steroid demargination likely PHYSICAL EXAMINATION: GENERAL: A/A/O, VSS HEENT: NGT-> Suction NECK: Supple, trach-> midline CHEST: Equal chest rise bilaterally, without dyspnea on observation HEART: Pulse RRR ABDOMEN: Distended EXTREMITIES: Warm, SKIN: Warm, dry ID ASSESSMENT: 66 yo F admitted with: 1. Resolving sepsis likely due to peritonitis =>Status post alpha hemolytic strep bacteremia with repeat blood cultures negative. * Leukocytosis, Neupogen induced. 2. Gastric cancer- STG IV -> s/p partial gastrectomy/partial colectomy/ palliative ileostomy. 3. Bowel obstruction due to #2 4. s/p Intractable nausea, vomiting, and abdominal pain-> due to ileus vs SBO 5. s/p pulmonary edema w/likely superimposed developing HCAP -> s/p full ABX course 6. Anemia & Thrombocytopenia 7. Hypertension. INVASIVES: * PIV / Chemo Port ABX ALLERGIES: KNDA CURRENT ABX: # 12 / 14 total days => Ceftriaxone + Fluconazole ID RECOMMENDATIONS: 1. Continue current ABX day #12 / 14 days total to cover 11/08/16 (+)BCx . Problems: Consultation Date/Type/Reason Admit Date/Time Oct 16, 2016 at 08:57 Type of Consultation: ID Referring Provider: KOBY FRANCO MD Exam/Review of Systems Vital Signs Vitals Vital Signs Date Time Temp Pulse Resp B/P Pulse Ox O2 Delivery O2 Flow Rate FiO2 11/21/16 08:02 98.0 77 15 166/73 95 11/20/16 12:00 Room Air Intake and Output 11/20/16 11/20/16 11/21/16 15:00 23:00 07:00 Intake Total 250 ml 1150 ml 1100 ml Output Total 1020 ml 550 ml Balance 250 ml 130 ml 550 ml Results Result Diagram: 11/21/16 0445 11/21/16 0445 Results 24 hrs Laboratory Tests Test 11/20/16 21:09 11/21/16 04:45 11/21/16 09:26 Bedside Glucose 108 105 White Blood Count 22.6 #H Red Blood Count 3.13 L Hemoglobin 9.2 L Hematocrit 27.8 L Mean Corpuscular Volume 88.8 Mean Corpuscular Hemoglobin 29.4 Mean Corpuscular Hemoglobin Concent 33.1 Red Cell Distribution Width 16.5 H Platelet Count 137 L Mean Platelet Volume 12.1 H Neutrophils % 76.0 Band Neutrophils % 14.0 H Lymphocytes % 4.0 L Monocytes % 1.0 Eosinophils % 1.0 Basophils % Metamyelocytes % 3.0 H Myelocytes % 1.0 H Neutrophils # 17.2 H Lymphocytes # 0.9 Monocytes # 0.2 L Eosinophils # 0.2 Basophils # Metamyelocytes # 0.7 Myelocytes # 0.2 Sodium Level 138 Potassium Level 4.0 Chloride Level 106 Carbon Dioxide Level 24 Anion Gap 12 Blood Urea Nitrogen 24 H Creatinine 0.39 L Glucose Level 91 Calcium Level 7.8 L Medications Medications Current Medications Ondansetron HCl 4 mg 4 mg Q4H PRN IV NAUSEA AND/OR VOMITING Last administered on 11/20/16 13:57; Admin Dose 4 MG; Start 10/17/16 at 19:00 Total Parenteral Nutrition (Tpn) 1,000 ml @ 100 mls/hr Q10H IV Last administered on 11/21/16 08:35; Admin Dose 100 MLS/HR; Start 10/19/16 at 18:30 Fentanyl (Duragesic 12 Mcg/Hr Patch) 1 patch Q72H TRANSDERM Last administered on 11/21/16 18:31; Admin Dose 1 PATCH; Start 10/19/16 at 18:30 Hydromorphone HCl (Dilaudid) 1 mg Q4H PRN IV BREAKTHROUGH PAIN Last administered on 11/09/16 18:02; Admin Dose 1 MG; Start 10/19/16 at 23:00 Lorazepam (Ativan) 0.5 mg Q8H PRN IV anxiety, insomnia Last administered on 15:24; Admin Dose 0.5 MG; Start 10/21/16 at 18:00 Diagnostic Test (Pha) (Accu-Chek) 1 ea Q12 XX Last administered on 11/21/16 09 :00; Admin Dose 1 EA; Start 10/22/16 at 09:00 Metoclopramide HCl (Reglan) 5 mg Q6 IV Last administered on 11/21/16 18:00; Admin Dose 5 MG; Start 10/23/16 at 00:00 Dexamethasone (Decadron) 10 mg Q7D IV Last administered on 11/03/16 21:48; Admin Dose 10 MG; Start 10/27/16 at 22:00; Status Future Hold Dexamethasone (Decadron) 10 mg Q7D IV Last administered on 11/04/16 04:32; Admin Dose 10 MG; Start 10/28/16 at 04:00; Status Future Hold Enalaprilat (Vasotec Iv) 0.625 mg Q4H PRN IV ELEVATED BLOOD PRESSURE Last administered on 11/07/16 13:38; Admin Dose 0.625 MG; Start 10/29/16 at 10:00 Clonidine HCl (Catapres-Tts 2 Patch) 1 patch Q7D TRANSDERM Last administered on 11/17/16 22:23; Admin Dose 1 PATCH; Start 11/03/16 at 18:30 Lidocaine 15 ml 15 ml QID PRN PO SORE THROAT Last administered on 11/10/16 12: 53; Admin Dose 15 ML; Start 11/08/16 at 14:00 Fluconazole/ Sodium Chloride 50 ml @ 50 mls/hr Q24H IVPB Last administered on 17:08; Admin Dose 50 MLS/HR; Start 11/08/16 at 17:00 Acetaminophen (Ofirmev 1000mg/ 100ml Iv) 100 ml @ 400 mls/hr Q6H PRN IVPB FEVER Last administered on 11/12/16 02:29; Admin Dose 400 MLS/HR; Start at 16:00 Pantoprazole 40 mg 40 mg BID@06,18 IV Last administered on 11/21/16 18:00; Admin Dose 40 MG; Start 11/11/16 at 06:00 Ceftriaxone Sodium (Rocephin) 50 ml @ 100 mls/hr Q24H IVPB Last administered on 11/21/16 12:59; Admin Dose 100 MLS/HR; Start 11/12/16 at 13:30 Miscellaneous Information (* Miscellaneous Pharmacy Order) START CHEMO 0N ... ONCE XX ; Start 11/15/16 at 15:30 Miscellaneous Information (* Miscellaneous Pharmacy Order) CHEMO MEDS FOR TOMORROW--RAMUCIRU... ONCE XX ; Start 11/15/16 at 15:30 Filgrastim (Neupogen) 300 mcg DAILY@17 SC Last administered on 11/20/16t 16:58 ; Admin Dose 300 MCG; Start 11/20/16 at 17:00; Stop 11/24/16 at 01:00 BRYAN LEWIS NP November 21, 2016 19:26
[2016-11-21] MEDS: ACETAMINOPHEN 1000MG/100ML IV 100 ML IVPB PRN (20:11)
[2016-11-22] MEDS: METOCLOPRAMIDE 10 MG INJ IV SCH ×4 (00:07→17:08)
[2016-11-22] MEDS: HYDROmorphONE 1 MG/ML SYG IV PRN ×3 (00:07→18:31)
[2016-11-22 06:10] LABS: POTASSIUM 4.1 mmol/L (3.5-5.1)
[2016-11-22 06:12] LABS: CREATININE 0.35 mg/dl (0.44-1.00)
[2016-11-22 06:13] LABS: CALCIUM 7.8 mg/dl (8.4-10.2); PHOSPHORUS 3.7 mg/dl (2.5-4.9)
[2016-11-22 06:14] LABS: MAGNESIUM 1.8 mg/dl (1.7-2.5)
[2016-11-22] MEDS: PANTOPRAZOLE 40 MG INJ IV SCH ×2 (06:31→17:08)
[2016-11-22] MEDS: TPN 1,000 ML IV SCH ×2 (06:52→17:42)
[2016-11-22] MEDS: ACETAMINOPHEN 1000MG/100ML IV 100 ML IVPB PRN (06:55)
[2016-11-22 07:59] VITALS: BP 161/74; RESP 14
[2016-11-22 09:12] VITALS: BP 138/65; PULSE 67; RESP 16
[2016-11-22] MEDS: ACCU-CHEK XX SCH ×2 (09:23→20:58)
--- NOTE | 2016-11-22 13:10 | PN ---
Date/Time of Note Date/Time of Note DATE: 11/22/16 TIME: 13:09 Assessment/Plan VTE Prophylaxis VTE Prophylaxis Intervention: other Lines/Catheters IV C[facility]ter Type (from [facility]): Peripheral IV Urinary Cath still in place: No Assessment/Plan Chief Complaint/Hosp Course 1. Metastatic gastric cancer, undergoing chemotherapy, with a gradual drop in WBC and hemoglobin and hematocrit. Will restart Neupogen, transfuse 1 unit of packed red blood cells and continue to monitor over the weekend. 2. Sepsis with bacteremia. Clinically stable on IV ceftriaxone and fluconazole. Last chest x-ray also shows improvement in bibasilar infiltrates. 3. Blood pressure is stable on the current medications. Problems: Subjective 24 Hr Interval Summary Free Text/Dictation Patient complain of abdominal pain Exam/Review of Systems Vital Signs Vitals Vital Signs Date Time Temp Pulse Resp B/P Pulse Ox O2 Delivery O2 Flow Rate FiO2 11/22/16 09:12 67 16 138/65 Room Air 11/22/16 07:59 98.2 96 Intake and Output 11/21/16 11/21/16 11/22/16 15:00 23:00 07:00 Intake Total 50 ml 1210 ml 990 ml Output Total 1090 ml 850 ml Balance 50 ml 120 ml 140 ml Exam Constitutional: well developed Head: atraumatic, normocephalic Neck: supple Respiratory: diminished breath sounds Cardiovascular: regular rate and rhythm Gastrointestinal: non-tender, soft Extremities: normal pulses Results Result Diagram: 11/21/16 0445 11/22/16 0433 Results 24 hrs Laboratory Tests Test 11/21/16 20:50 11/22/16 04:33 11/22/16 09:07 Bedside Glucose 97 132 Sodium Level 139 Potassium Level 4.1 Chloride Level 114 H Carbon Dioxide Level 25 Anion Gap 4 #L Blood Urea Nitrogen 23 H Creatinine 0.35 L Glucose Level 89 Calcium Level 7.8 L Phosphorus Level 3.7 Magnesium Level 1.8 Medications Medications Current Medications Ondansetron HCl 4 mg 4 mg Q4H PRN IV NAUSEA AND/OR VOMITING Last administered on 11/20/16 13:57; Admin Dose 4 MG; Start 10/17/16 at 19:00 Total Parenteral Nutrition (Tpn) 1,000 ml @ 100 mls/hr Q10H IV Last administered on 11/22/16 06:52; Admin Dose 100 MLS/HR; Start 10/19/16 at 18:30 Fentanyl (Duragesic 12 Mcg/Hr Patch) 1 patch Q72H TRANSDERM Last administered on 11/21/16 18:31; Admin Dose 1 PATCH; Start 10/19/16 at 18:30 Hydromorphone HCl (Dilaudid) 1 mg Q4H PRN IV BREAKTHROUGH PAIN Last administered on 11/22/16 07:25; Admin Dose 1 MG; Start 10/19/16 at 23:00 Lorazepam (Ativan) 0.5 mg Q8H PRN IV anxiety, insomnia Last administered on 15:24; Admin Dose 0.5 MG; Start 10/21/16 at 18:00 Diagnostic Test (Pha) (Accu-Chek) 1 ea Q12 XX Last administered on 11/22/16 09 :23; Admin Dose 1 EA; Start 10/22/16 at 09:00 Metoclopramide HCl (Reglan) 5 mg Q6 IV Last administered on 11/22/16 11:39; Admin Dose 5 MG; Start 10/23/16 at 00:00 Enalaprilat (Vasotec Iv) 0.625 mg Q4H PRN IV ELEVATED BLOOD PRESSURE Last administered on 11/07/16 13:38; Admin Dose 0.625 MG; Start 10/29/16 at 10:00 Clonidine HCl (Catapres-Tts 2 Patch) 1 patch Q7D TRANSDERM Last administered on 11/17/16 22:23; Admin Dose 1 PATCH; Start 11/03/16 at 18:30 Lidocaine 15 ml 15 ml QID PRN PO SORE THROAT Last administered on 11/10/16 12: 53; Admin Dose 15 ML; Start 11/08/16 at 14:00 Fluconazole/ Sodium Chloride 50 ml @ 50 mls/hr Q24H IVPB Last administered on 17:08; Admin Dose 50 MLS/HR; Start 11/08/16 at 17:00 Acetaminophen (Ofirmev 1000mg/ 100ml Iv) 100 ml @ 400 mls/hr Q6H PRN IVPB FEVER Last administered on 11/22/16 06:55; Admin Dose 400 MLS/HR; Start at 16:00 Pantoprazole 40 mg 40 mg BID@06,18 IV Last administered on 11/22/16 06:31; Admin Dose 40 MG; Start 11/11/16 at 06:00 Ceftriaxone Sodium (Rocephin) 50 ml @ 100 mls/hr Q24H IVPB Last administered on 11/21/16 12:59; Admin Dose 100 MLS/HR; Start 11/12/16 at 13:30 Filgrastim (Neupogen) 300 mcg DAILY@17 SC Last administered on 11/20/16 16:58 ; Admin Dose 300 MCG; Start 11/20/16 at 17:00; Stop 11/24/16 at 01:00 ULISES MCCAULEY November 22, 2016 13:10
[2016-11-22] MEDS: CEFTRIAXONE 1 GM/50 ML (PMX) 50 ML IVPB SCH (13:16)
[2016-11-22 14:20] LABS: ADD SCAN DIFF NO
[2016-11-22 14:24] LABS: BASOPHIL # 0.1 10^3/ul (0.0-0.1); BASOPHILS % 1.7 % (0.0-2.0); EOSINOPHILS % 0.2 % (0.0-7.0); HEMATOCRIT 27.2 % (37.0-47.0); LYMPHOCYTES # 0.7 10^3/ul (0.8-2.9); LYMPHOCYTES % 16.9 % (15.0-51.0); MEAN CORPUSCULAR HEMOGLOBIN 29.1 pg (29.0-33.0); MEAN CORPUSCULAR HGB CONC 33.1 g/dl (32.0-37.0); MEAN PLATELET VOLUME 11.3 fl (7.4-10.4); MONOCYTE # 0.2 10^3/ul (0.3-0.9); MONOCYTES % 4.3 % (0.0-11.0); NEUTROPHIL # 3.2 10^3/ul (1.6-7.5); NEUTROPHILS % 75.9 % (39.0-77.0); PLATELET COUNT 140 10^3/UL (140-415); RED BLOOD COUNT 3.09 10^6/ul (4.20-5.40); RED CELL DISTRIBUTION WIDTH 16.1 % (11.5-14.5); WHITE BLOOD COUNT 4.2 10^3/ul (4.8-10.8)
--- NOTE | 2016-11-22 14:35 | PN ---
Date/Time of Note Date/Time of Note DATE: 11/21/16 TIME: 14:32 Assessment/Plan VTE Prophylaxis VTE Prophylaxis Intervention: SCD's Lines/Catheters [facility] (from [facility] PORT Urinary Cath still in place: No Assessment/Plan Assessment/Plan 66 year old woman with metastatic gastric cancer to peritoneum >Metastatic gastric cancer Patient administered taxane and ramuricumab Continue to monitor >Anemia Secondary to above Prophylactic blood transfusion for hemoglobin less than 8 g/dL >Icterus CT abdomen showed masses. MRI was recommended LFT's improved overall. Subjective 24 Hr Interval Summary Free Text/Dictation Patient awake alert, without complaint Exam/Review of Systems Vital Signs Vitals Vital Signs Date Time Temp Pulse Resp B/P Pulse Ox O2 Delivery O2 Flow Rate FiO2 11/22/16 09:12 67 16 138/65 Room Air 11/22/16 07:59 98.2 96 Intake and Output 11/21/16 11/21/16 11/22/16 15:00 23:00 07:00 Intake Total 50 ml 1210 ml 990 ml Output Total 1090 ml 850 ml Balance 50 ml 120 ml 140 ml Exam Constitutional: alert, oriented, well developed Psych: nl mood/affect, no complaints Head: atraumatic, normocephalic Eyes: EOMI, nl conjunctiva Neck: non-tender, supple Respiratory: clear to auscultation, normal air movement Cardiovascular: nl pulses, regular rate and rhythm Gastrointestinal: non-tender, other (left lower quadrant colostomy), soft Genitourinary - Female: nl adnexae, nl external genitalia Musculoskeletal: nl extremities to inspection, nl gait and stance Extremities: normal pulses 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, nl mental status Results Result Diagram: 11/22/16 1410 11/22/16 0433 Results 24 hrs Laboratory Tests Test 11/21/16 20:50 11/22/16 04:33 11/22/16 09:07 11/22/16 14:10 Bedside Glucose 97 132 Sodium Level 139 Potassium Level 4.1 Chloride Level 114 H Carbon Dioxide Level 25 Anion Gap 4 #L Blood Urea Nitrogen 23 H Creatinine 0.35 L Glucose Level 89 Calcium Level 7.8 L Phosphorus Level 3.7 Magnesium Level 1.8 White Blood Count 4.2 #L Red Blood Count 3.09 L Hemoglobin 9.0 L Hematocrit 27.2 L Mean Corpuscular Volume 88.0 Mean Corpuscular Hemoglobin 29.1 Mean Corpuscular Hemoglobin Concent 33.1 Red Cell Distribution Width 16.1 H Platelet Count 140 Mean Platelet Volume 11.3 H Neutrophils % 75.9 Lymphocytes % 16.9 Monocytes % 4.3 Eosinophils % 0.2 Basophils % 1.7 Nucleated Red Blood Cells % 0.0 Neutrophils # 3.2 Lymphocytes # 0.7 L Monocytes # 0.2 L Eosinophils # 0.0 Basophils # 0.1 Nucleated Red Blood Cells # 0.0 Medications Medications Current Medications Ondansetron HCl 4 mg 4 mg Q4H PRN IV NAUSEA AND/OR VOMITING Last administered on 11/20/16 13:57; Admin Dose 4 MG; Start 10/17/16 at 19:00 Total Parenteral Nutrition (Tpn) 1,000 ml @ 100 mls/hr Q10H IV Last administered on 11/22/16 06:52; Admin Dose 100 MLS/HR; Start 10/19/16 at 18:30 Fentanyl (Duragesic 12 Mcg/Hr Patch) 1 patch Q72H TRANSDERM Last administered on 11/21/16 18:31; Admin Dose 1 PATCH; Start 10/19/16 at 18:30 Hydromorphone HCl (Dilaudid) 1 mg Q4H PRN IV BREAKTHROUGH PAIN Last administered on 11/22/16 07:25; Admin Dose 1 MG; Start 10/19/16 at 23:00 Lorazepam (Ativan) 0.5 mg Q8H PRN IV anxiety, insomnia Last administered on 15:24; Admin Dose 0.5 MG; Start 10/21/16 at 18:00 Diagnostic Test (Pha) (Accu-Chek) 1 ea Q12 XX Last administered on 11/22/16 09 :23; Admin Dose 1 EA; Start 10/22/16 at 09:00 Metoclopramide HCl (Reglan) 5 mg Q6 IV Last administered on 11/22/16 11:39; Admin Dose 5 MG; Start 10/23/16 at 00:00 Enalaprilat (Vasotec Iv) 0.625 mg Q4H PRN IV ELEVATED BLOOD PRESSURE Last administered on 11/07/16 13:38; Admin Dose 0.625 MG; Start 10/29/16 at 10:00 Clonidine HCl (Catapres-Tts 2 Patch) 1 patch Q7D TRANSDERM Last administered on 11/17/16 22:23; Admin Dose 1 PATCH; Start 11/03/16 at 18:30 Lidocaine 15 ml 15 ml QID PRN PO SORE THROAT Last administered on 11/10/16 12: 53; Admin Dose 15 ML; Start 11/08/16 at 14:00 Fluconazole/ Sodium Chloride 50 ml @ 50 mls/hr Q24H IVPB Last administered on 17:08; Admin Dose 50 MLS/HR; Start 11/08/16 at 17:00 Acetaminophen (Ofirmev 1000mg/ 100ml Iv) 100 ml @ 400 mls/hr Q6H PRN IVPB FEVER Last administered on 11/22/16 06:55; Admin Dose 400 MLS/HR; Start at 16:00 Pantoprazole 40 mg 40 mg BID@06,18 IV Last administered on 11/22/16 06:31; Admin Dose 40 MG; Start 11/11/16 at 06:00 Ceftriaxone Sodium (Rocephin) 50 ml @ 100 mls/hr Q24H IVPB Last administered on 11/22/16 13:16; Admin Dose 100 MLS/HR; Start 11/12/16 at 13:30 Filgrastim (Neupogen) 300 mcg DAILY@17 SC Last administered on 11/20/16 16:58 ; Admin Dose 300 MCG; Start 11/20/16 at 17:00; Stop 11/24/16 at 01:00 DEMARCUS CHOUDHURY MD November 22, 2016 14:35
--- NOTE | 2016-11-22 14:38 | PN ---
Date/Time of Note Date/Time of Note DATE: 11/22/16 TIME: 14:36 Assessment/Plan VTE Prophylaxis VTE Prophylaxis Intervention: SCD's Lines/Catheters IV Catheter Type (from [facility]): PORT Urinary Cath still in place: No Assessment/Plan Assessment/Plan 66 year old woman with metastatic gastric cancer to peritoneum >Metastatic gastric cancer Patient administered taxane and ramuricumab Continue to monitor Patient noted neutropenic and improved after administration of neupogen >Anemia Secondary to above Prophylactic blood transfusion for hemoglobin less than 8 g/dL I will follow-up tomorrow's CBC >Icterus CT abdomen showed masses. MRI was recommended LFT's improved overall. Subjective 24 Hr Interval Summary Free Text/Dictation Patient notes subjective fever yesterday, but denies cough, shortness of breath , cough Exam/Review of Systems Vital Signs Vitals Vital Signs Date Time Temp Pulse Resp B/P Pulse Ox O2 Delivery O2 Flow Rate FiO2 11/22/16 09:12 67 16 138/65 Room Air 11/22/16 07:59 98.2 96 Intake and Output 11/21/16 11/21/16 11/22/16 15:00 23:00 07:00 Intake Total 50 ml 1210 ml 990 ml Output Total 1090 ml 850 ml Balance 50 ml 120 ml 140 ml Exam Constitutional: alert, oriented Psych: nl mood/affect, no complaints Head: atraumatic, normocephalic Eyes: EOMI, nl conjunctiva ENMT: nl external ears & nose, nl lips & teeth Neck: non-tender, supple Respiratory: clear to auscultation, normal air movement Cardiovascular: nl pulses, regular rate and rhythm Gastrointestinal: non-tender, soft Extremities: normal pulses 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, nl mental status Results Result Diagram: 11/22/16 1410 11/22/16 0433 Results 24 hrs Laboratory Tests Test 11/21/16 20:50 11/22/16 04:33 11/22/16 09:07 11/22/16 14:10 Bedside Glucose 97 132 Sodium Level 139 Potassium Level 4.1 Chloride Level 114 H Carbon Dioxide Level 25 Anion Gap 4 #L Blood Urea Nitrogen 23 H Creatinine 0.35 L Glucose Level 89 Calcium Level 7.8 L Phosphorus Level 3.7 Magnesium Level 1.8 White Blood Count 4.2 #L Red Blood Count 3.09 L Hemoglobin 9.0 L Hematocrit 27.2 L Mean Corpuscular Volume 88.0 Mean Corpuscular Hemoglobin 29.1 Mean Corpuscular Hemoglobin Concent 33.1 Red Cell Distribution Width 16.1 H Platelet Count 140 Mean Platelet Volume 11.3 H Neutrophils % 75.9 Lymphocytes % 16.9 Monocytes % 4.3 Eosinophils % 0.2 Basophils % 1.7 Nucleated Red Blood Cells % 0.0 Neutrophils # 3.2 Lymphocytes # 0.7 L Monocytes # 0.2 L Eosinophils # 0.0 Basophils # 0.1 Nucleated Red Blood Cells # 0.0 Medications Medications Current Medications Ondansetron HCl 4 mg 4 mg Q4H PRN IV NAUSEA AND/OR VOMITING Last administered on 11/20/16 13:57; Admin Dose 4 MG; Start 10/17/16 at 19:00 Total Parenteral Nutrition (Tpn) 1,000 ml @ 100 mls/hr Q10H IV Last administered on 11/22/16 06:52; Admin Dose 100 MLS/HR; Start 10/19/16 at 18:30 Fentanyl (Duragesic 12 Mcg/Hr Patch) 1 patch Q72H TRANSDERM Last administered on 11/21/16 18:31; Admin Dose 1 PATCH; Start 10/19/16 at 18:30 Hydromorphone HCl (Dilaudid) 1 mg Q4H PRN IV BREAKTHROUGH PAIN Last administered on 11/22/16 07:25; Admin Dose 1 MG; Start 10/19/16 at 23:00 Lorazepam (Ativan) 0.5 mg Q8H PRN IV anxiety, insomnia Last administered on 15:24; Admin Dose 0.5 MG; Start 10/21/16 at 18:00 Diagnostic Test (Pha) (Accu-Chek) 1 ea Q12 XX Last administered on 11/22/16 09 :23; Admin Dose 1 EA; Start 10/22/16 at 09:00 Metoclopramide HCl (Reglan) 5 mg Q6 IV Last administered on 11/22/16 11:39; Admin Dose 5 MG; Start 10/23/16 at 00:00 Enalaprilat (Vasotec Iv) 0.625 mg Q4H PRN IV ELEVATED BLOOD PRESSURE Last administered on 11/07/16 13:38; Admin Dose 0.625 MG; Start 10/29/16 at 10:00 Clonidine HCl (Catapres-Tts 2 Patch) 1 patch Q7D TRANSDERM Last administered on 11/17/16 22:23; Admin Dose 1 PATCH; Start 11/03/16 at 18:30 Lidocaine 15 ml 15 ml QID PRN PO SORE THROAT Last administered on 11/10/16 12: 53; Admin Dose 15 ML; Start 11/08/16 at 14:00 Fluconazole/ Sodium Chloride 50 ml @ 50 mls/hr Q24H IVPB Last administered on 17:08; Admin Dose 50 MLS/HR; Start 11/08/16 at 17:00 Acetaminophen (Ofirmev 1000mg/ 100ml Iv) 100 ml @ 400 mls/hr Q6H PRN IVPB FEVER Last administered on 11/22/16 06:55; Admin Dose 400 MLS/HR; Start at 16:00 Pantoprazole 40 mg 40 mg BID@06,18 IV Last administered on 11/22/16 06:31; Admin Dose 40 MG; Start 11/11/16 at 06:00 Ceftriaxone Sodium (Rocephin) 50 ml @ 100 mls/hr Q24H IVPB Last administered on 11/22/16 13:16; Admin Dose 100 MLS/HR; Start 11/12/16 at 13:30 Filgrastim (Neupogen) 300 mcg DAILY@17 SC Last administered on 11/20/16 16:58 ; Admin Dose 300 MCG; Start 11/20/16 at 17:00; Stop 11/24/16 at 01:00 DEMARCUS CHOUDHURY MD November 22, 2016 14:38
[2016-11-22] MEDS: FLUCONAZOLE 100 MG/NS (PMX) 50 ML IVPB SCH (17:08)
--- NOTE | 2016-11-22 18:05 | CONS ---
Date/Time of Note Date/Time of Note DATE: 11/22/16 TIME: 18:04 Assessment/Plan Assessment/Plan Chief Complaint/Hosp Course ID PROGRESS NOTE ABX DAY #13 / 14 total day course => Ceftriaxone + Fluconazole 24H INTERVAL SUMMARY * No fevers recorded -- she does feel warm intermittent -- not now * A/A/O -- responsive, doing OK, pleasant, polite, NAD * NGT, cachexia, family present * WBC elevated on Dexamethasone => IV Steroid demargination likely PHYSICAL EXAMINATION: GENERAL: A/A/O, VSS HEENT: NGT-> Suction NECK: Supple, trach-> midline CHEST: Equal chest rise bilaterally, without dyspnea on observation HEART: Pulse RRR ABDOMEN: Distended EXTREMITIES: Warm, SKIN: Warm, dry ID ASSESSMENT: 66 yo F admitted with: 1. Resolving sepsis likely due to peritonitis =>Status post alpha hemolytic strep bacteremia with repeat blood cultures negative. * Leukocytosis, Neupogen induced. 2. Gastric cancer- STG IV -> s/p partial gastrectomy/partial colectomy/ palliative ileostomy. 3. Bowel obstruction due to #2 4. s/p Intractable nausea, vomiting, and abdominal pain-> due to ileus vs SBO 5. s/p pulmonary edema w/likely superimposed developing HCAP -> s/p full ABX course 6. Anemia & Thrombocytopenia 7. Hypertension. INVASIVES: * PIV / Chemo Port ABX ALLERGIES: KNDA CURRENT ABX: # 13 / 14 total days => Ceftriaxone + Fluconazole ID RECOMMENDATIONS: 1. Continue current ABX day #13 / 14 days total to cover 11/08/16 (+)BCx . Problems: Consultation Date/Type/Reason Admit Date/Time Oct 16, 2016 at 08:57 Type of Consultation: ID Referring Provider: KOBY FRANCO MD Exam/Review of Systems Vital Signs Vitals Vital Signs Date Time Temp Pulse Resp B/P Pulse Ox O2 Delivery O2 Flow Rate FiO2 11/22/16 14:20 21 11/22/16 09:12 67 16 138/65 Room Air 11/22/16 07:59 98.2 96 Intake and Output 11/21/16 11/21/16 11/22/16 15:00 23:00 07:00 Intake Total 50 ml 1210 ml 990 ml Output Total 1090 ml 850 ml Balance 50 ml 120 ml 140 ml Results Result Diagram: 11/22/16 1410 11/22/16 0433 Results 24 hrs Laboratory Tests Test 11/21/16 20:50 11/22/16 04:33 11/22/16 09:07 11/22/16 14:10 Bedside Glucose 97 132 Sodium Level 139 Potassium Level 4.1 Chloride Level 114 H Carbon Dioxide Level 25 Anion Gap 4 #L Blood Urea Nitrogen 23 H Creatinine 0.35 L Glucose Level 89 Calcium Level 7.8 L Phosphorus Level 3.7 Magnesium Level 1.8 White Blood Count 4.2 #L Red Blood Count 3.09 L Hemoglobin 9.0 L Hematocrit 27.2 L Mean Corpuscular Volume 88.0 Mean Corpuscular Hemoglobin 29.1 Mean Corpuscular Hemoglobin Concent 33.1 Red Cell Distribution Width 16.1 H Platelet Count 140 Mean Platelet Volume 11.3 H Neutrophils % 75.9 Lymphocytes % 16.9 Monocytes % 4.3 Eosinophils % 0.2 Basophils % 1.7 Nucleated Red Blood Cells % 0.0 Neutrophils # 3.2 Lymphocytes # 0.7 L Monocytes # 0.2 L Eosinophils # 0.0 Basophils # 0.1 Nucleated Red Blood Cells # 0.0 Medications Medications Current Medications Ondansetron HCl 4 mg 4 mg Q4H PRN IV NAUSEA AND/OR VOMITING Last administered on 11/20/16 13:57; Admin Dose 4 MG; Start 10/17/16 at 19:00 Total Parenteral Nutrition (Tpn) 1,000 ml @ 100 mls/hr Q10H IV Last administered on 11/22/16 17:42; Admin Dose 100 MLS/HR; Start 10/19/16 at 18:30 Fentanyl (Duragesic 12 Mcg/Hr Patch) 1 patch Q72H TRANSDERM Last administered on 11/21/16 18:31; Admin Dose 1 PATCH; Start 10/19/16 at 18:30 Hydromorphone HCl (Dilaudid) 1 mg Q4H PRN IV BREAKTHROUGH PAIN Last administered on 11/22/16 07:25; Admin Dose 1 MG; Start 10/19/16 at 23:00 Lorazepam (Ativan) 0.5 mg Q8H PRN IV anxiety, insomnia Last administered on 15:24; Admin Dose 0.5 MG; Start 10/21/16 at 18:00 Diagnostic Test (Pha) (Accu-Chek) 1 ea Q12 XX Last administered on 11/22/16 09 :23; Admin Dose 1 EA; Start 10/22/16 at 09:00 Metoclopramide HCl (Reglan) 5 mg Q6 IV Last administered on 11/22/16 17:08; Admin Dose 5 MG; Start 10/23/16 at 00:00 Enalaprilat (Vasotec Iv) 0.625 mg Q4H PRN IV ELEVATED BLOOD PRESSURE Last administered on 11/07/16 13:38; Admin Dose 0.625 MG; Start 10/29/16 at 10:00 Clonidine HCl (Catapres-Tts 2 Patch) 1 patch Q7D TRANSDERM Last administered on 11/17/16 22:23; Admin Dose 1 PATCH; Start 11/03/16 at 18:30 Lidocaine 15 ml 15 ml QID PRN PO SORE THROAT Last administered on 11/10/16 12: 53; Admin Dose 15 ML; Start 11/08/16 at 14:00 Fluconazole/ Sodium Chloride 50 ml @ 50 mls/hr Q24H IVPB Last administered on 17:08; Admin Dose 50 MLS/HR; Start 11/08/16 at 17:00 Acetaminophen (Ofirmev 1000mg/ 100ml Iv) 100 ml @ 400 mls/hr Q6H PRN IVPB FEVER Last administered on 11/22/16 06:55; Admin Dose 400 MLS/HR; Start at 16:00 Pantoprazole 40 mg 40 mg BID@06,18 IV Last administered on 11/22/16 17:08; Admin Dose 40 MG; Start 11/11/16 at 06:00 Ceftriaxone Sodium (Rocephin) 50 ml @ 100 mls/hr Q24H IVPB Last administered on 11/22/16 13:16; Admin Dose 100 MLS/HR; Start 11/12/16 at 13:30 Filgrastim (Neupogen) 300 mcg DAILY@17 SC Last administered on 11/20/16 16:58 ; Admin Dose 300 MCG; Start 11/20/16 at 17:00; Stop 11/24/16 at 01:00 BRYAN LEWIS NP November 22, 2016 18:05
[2016-11-22] MEDS: ONDANSETRON 4 MG INJ IV PRN (18:40)
[2016-11-22] MEDS: FILGRASTIM 300 MCG INJ SC SCH (18:47)
[2016-11-22 19:06] VITALS: BP 160/77; RESP 16
[2016-11-23] MEDS: METOCLOPRAMIDE 10 MG INJ IV SCH ×5 (00:13→23:41)
[2016-11-23] MEDS: ONDANSETRON 4 MG INJ IV PRN (02:19)
[2016-11-23] MEDS: HYDROmorphONE 1 MG/ML SYG IV PRN ×2 (02:20→13:54)
[2016-11-23] MEDS: TPN 1,000 ML IV SCH ×2 (04:50→17:15)
[2016-11-23 05:18] LABS: ADD SCAN DIFF NO
[2016-11-23 05:22] LABS: ABNORMAL IP MESSAGE 1; HEMATOCRIT 28.1 % (37.0-47.0); HEMOGLOBIN 9.1 g/dl (12.0-16.0); MEAN CORPUSCULAR HEMOGLOBIN 28.7 pg (29.0-33.0); MEAN CORPUSCULAR HGB CONC 32.4 g/dl (32.0-37.0); MEAN CORPUSCULAR VOLUME 88.6 fl (82.0-101.0); PLATELET COUNT 151 10^3/UL (140-415); RED BLOOD COUNT 3.17 10^6/ul (4.20-5.40); RED CELL DISTRIBUTION WIDTH 16.1 % (11.5-14.5); WHITE BLOOD COUNT 10.5 10^3/ul (4.8-10.8)
[2016-11-23] MEDS: PANTOPRAZOLE 40 MG INJ IV SCH ×2 (05:26→17:21)
[2016-11-23 05:49] LABS: POTASSIUM 4.1 mmol/L (3.5-5.1)
[2016-11-23 05:52] LABS: CREATININE 0.41 mg/dl (0.44-1.00)
[2016-11-23 05:53] LABS: CALCIUM 8.1 mg/dl (8.4-10.2)
[2016-11-23 07:56] VITALS: BP 130/60; RESP 20
[2016-11-23] MEDS: ACCU-CHEK XX SCH ×2 (09:00→21:47)
[2016-11-23 09:20] LABS: LYMPHOCYTES # 0.9 10^3/ul (0.8-2.9); MONOCYTE # 0.2 10^3/ul (0.3-0.9); NEUTROPHIL # 8.3 10^3/ul (1.6-7.5)
[2016-11-23 12:00] VITALS: BP 124/73; PULSE 80; RESP 16
--- NOTE | 2016-11-23 12:00 | PN ---
Date/Time of Note Date/Time of Note DATE: 11/23/16 TIME: 11:59 Assessment/Plan VTE Prophylaxis VTE Prophylaxis Intervention: other Lines/Catheters IV [facility]ter Type [facility]from [facility]): PORT A CATH Urinary Cath still in place: No Assessment/Plan Chief Complaint/Hosp Course 1. Metastatic gastric cancer, undergoing chemotherapy, with a gradual drop in WBC and hemoglobin and hematocrit. Will restart Neupogen, transfuse 1 unit of packed red blood cells and continue to monitor over the weekend. 2. Sepsis with bacteremia. Clinically stable on IV ceftriaxone and fluconazole. Last chest x-ray also shows improvement in bibasilar infiltrates. 3. Blood pressure is stable on the current medications. Problems: Subjective 24 Hr Interval Summary Free Text/Dictation Patient complain of abdominal pain Exam/Review of Systems Vital Signs Vitals Vital Signs Date Time Temp Pulse Resp B/P Pulse Ox O2 Delivery O2 Flow Rate FiO2 11/23/16 07:56 98.9 84 20 130/60 98 11/22/16 14:20 21 11/22/16 09:12 Room Air Intake and Output 11/22/16 11/22/16 11/23/16 15:00 23:00 07:00 Intake Total 150 ml 1160 ml 1010 ml Output Total 300 ml 1450 ml Balance 150 ml 860 ml -440 ml Exam Constitutional: well developed Head: atraumatic, normocephalic Neck: supple Respiratory: clear to auscultation Cardiovascular: regular rate and rhythm Gastrointestinal: non-tender, soft Extremities: normal pulses Results Result Diagram: 11/23/16 0436 11/23/16 0436 Results 24 hrs Laboratory Tests Test 11/22/16 14:10 11/22/16 20:57 11/23/16 04:36 11/23/16 10:14 White Blood Count 4.2 #L 10.5 # Red Blood Count 3.09 L 3.17 L Hemoglobin 9.0 L 9.1 L Hematocrit 27.2 L 28.1 L Mean Corpuscular Volume 88.0 88.6 Mean Corpuscular Hemoglobin 29.1 28.7 L Mean Corpuscular Hemoglobin Concent 33.1 32.4 Red Cell Distribution Width 16.1 H 16.1 H Platelet Count 140 151 Mean Platelet Volume 11.3 H 12.0 H Neutrophils % 75.9 79.0 H Lymphocytes % 16.9 9.0 L Monocytes % 4.3 2.0 Eosinophils % 0.2 Basophils % 1.7 Nucleated Red Blood Cells % 0.0 Neutrophils # 3.2 8.3 H Lymphocytes # 0.7 L 0.9 Monocytes # 0.2 L 0.2 L Eosinophils # 0.0 Basophils # 0.1 Nucleated Red Blood Cells # 0.0 Bedside Glucose 111 113 Band Neutrophils % 10.0 H Sodium Level 139 Potassium Level 4.1 Chloride Level 113 H Carbon Dioxide Level 26 Anion Gap 4 L Blood Urea Nitrogen 22 H Creatinine 0.41 L Glucose Level 135 # Calcium Level 8.1 L Medications Medications Current Medications Ondansetron HCl 4 mg 4 mg Q4H PRN IV NAUSEA AND/OR VOMITING Last administered on 11/23/16 02:19; Admin Dose 4 MG; Start 10/17/16 at 19:00 Total Parenteral Nutrition (Tpn) 1,000 ml @ 100 mls/hr Q10H IV Last administered on 11/23/16 04:50; Admin Dose 100 MLS/HR; Start 10/19/16 at 18:30 Fentanyl (Duragesic 12 Mcg/Hr Patch) 1 patch Q72H TRANSDERM Last administered on 11/21/16 18:31; Admin Dose 1 PATCH; Start 10/19/16 at 18:30 Hydromorphone HCl (Dilaudid) 1 mg Q4H PRN IV BREAKTHROUGH PAIN Last administered on 11/23/16 02:20; Admin Dose 1 MG; Start 10/19/16 at 23:00 Lorazepam (Ativan) 0.5 mg Q8H PRN IV anxiety, insomnia Last administered on 15:24; Admin Dose 0.5 MG; Start 10/21/16 at 18:00 Diagnostic Test (Pha) (Accu-Chek) 1 ea Q12 XX Last administered on 11/23/16 09 :00; Admin Dose 1 EA; Start 10/22/16 at 09:00 Metoclopramide HCl (Reglan) 5 mg Q6 IV Last administered on 11/23/16 05:26; Admin Dose 5 MG; Start 10/23/16 at 00:00 Enalaprilat (Vasotec Iv) 0.625 mg Q4H PRN IV ELEVATED BLOOD PRESSURE Last administered on 11/07/16 13:38; Admin Dose 0.625 MG; Start 10/29/16 at 10:00 Clonidine HCl (Catapres-Tts 2 Patch) 1 patch Q7D TRANSDERM Last administered on 11/17/16 22:23; Admin Dose 1 PATCH; Start 11/03/16 at 18:30 Lidocaine 15 ml 15 ml QID PRN PO SORE THROAT Last administered on 11/10/16 12: 53; Admin Dose 15 ML; Start 11/08/16 at 14:00 Fluconazole/ Sodium Chloride 50 ml @ 50 mls/hr Q24H IVPB Last administered on 17:08; Admin Dose 50 MLS/HR; Start 11/08/16 at 17:00 Acetaminophen (Ofirmev 1000mg/ 100ml Iv) 100 ml @ 400 mls/hr Q6H PRN IVPB FEVER Last administered on 11/22/16 06:55; Admin Dose 400 MLS/HR; Start at 16:00 Pantoprazole 40 mg 40 mg BID@06,18 IV Last administered on 11/23/16 05:26; Admin Dose 40 MG; Start 11/11/16 at 06:00 Ceftriaxone Sodium (Rocephin) 50 ml @ 100 mls/hr Q24H IVPB Last administered on 11/22/16 13:16; Admin Dose 100 MLS/HR; Start 11/12/16 at 13:30 Filgrastim (Neupogen) 300 mcg DAILY@17 SC Last administered on 11/22/16 18:47 ; Admin Dose 300 MCG; Start 11/20/16 at 17:00; Stop 11/24/16 at 01:00 ULISES MCCAULEY November 23, 2016 12:00
[2016-11-23] MEDS: CEFTRIAXONE 1 GM/50 ML (PMX) 50 ML IVPB SCH (13:30)
--- NOTE | 2016-11-23 13:34 | PN ---
Date/Time of Note Date/Time of Note DATE: 11/23/16 TIME: 13:31 Assessment/Plan VTE Prophylaxis VTE Prophylaxis Intervention: SCD's Lines/Catheters IV Catheter Type (from Nrsg): PORT A CATH Urinary Cath still in place: No Reason Cath still needed: terminal illness/intractable pain Assessment/Plan Assessment/Plan 66 year old woman with metastatic gastric cancer to peritoneum >Metastatic gastric cancer Patient administered taxane and ramuricumab Continue to monitor Patient noted neutropenic and improved after administration of neupogen Continue to monitor >Anemia Secondary to above Prophylactic blood transfusion for hemoglobin less than 8 g/dL Today's CBC stable and will continue to monitor Dr Henderson to resume care tomorrow. Subjective 24 Hr Interval Summary Free Text/Dictation Patient awake, and notes pain controlled with medication. Exam/Review of Systems Vital Signs Vitals Vital Signs Date Time Temp Pulse Resp B/P Pulse Ox O2 Delivery O2 Flow Rate FiO2 11/23/16 07:56 98.9 84 20 130/60 98 11/22/16 14:20 21 11/22/16 09:12 Room Air Intake and Output 11/22/16 11/22/16 11/23/16 15:00 23:00 07:00 Intake Total 150 ml 1160 ml 1010 ml Output Total 300 ml 1450 ml Balance 150 ml 860 ml -440 ml Exam Constitutional: alert, well developed Psych: nl mood/affect, no complaints Head: atraumatic, normocephalic Eyes: EOMI, nl conjunctiva ENMT: nl external ears & nose, nl nasal mucosa & septum Neck: non-tender, supple Respiratory: clear to auscultation, normal air movement Cardiovascular: nl pulses, regular rate and rhythm Gastrointestinal: non-tender, soft Extremities: normal pulses Neurological: nl mental status Results Result Diagram: 11/23/16 0436 11/23/16 0436 Results 24 hrs Laboratory Tests Test 11/22/16 14:10 11/22/16 20:57 11/23/16 04:36 11/23/16 10:14 White Blood Count 4.2 #L 10.5 # Red Blood Count 3.09 L 3.17 L Hemoglobin 9.0 L 9.1 L Hematocrit 27.2 L 28.1 L Mean Corpuscular Volume 88.0 88.6 Mean Corpuscular Hemoglobin 29.1 28.7 L Mean Corpuscular Hemoglobin Concent 33.1 32.4 Red Cell Distribution Width 16.1 H 16.1 H Platelet Count 140 151 Mean Platelet Volume 11.3 H 12.0 H Neutrophils % 75.9 79.0 H Lymphocytes % 16.9 9.0 L Monocytes % 4.3 2.0 Eosinophils % 0.2 Basophils % 1.7 Nucleated Red Blood Cells % 0.0 Neutrophils # 3.2 8.3 H Lymphocytes # 0.7 L 0.9 Monocytes # 0.2 L 0.2 L Eosinophils # 0.0 Basophils # 0.1 Nucleated Red Blood Cells # 0.0 Bedside Glucose 111 113 Band Neutrophils % 10.0 H Sodium Level 139 Potassium Level 4.1 Chloride Level 113 H Carbon Dioxide Level 26 Anion Gap 4 L Blood Urea Nitrogen 22 H Creatinine 0.41 L Glucose Level 135 # Calcium Level 8.1 L Medications Medications Current Medications Ondansetron HCl 4 mg 4 mg Q4H PRN IV NAUSEA AND/OR VOMITING Last administered on 11/23/16 02:19; Admin Dose 4 MG; Start 10/17/16 at 19:00 Total Parenteral Nutrition (Tpn) 1,000 ml @ 100 mls/hr Q10H IV Last administered on 11/23/16 04:50; Admin Dose 100 MLS/HR; Start 10/19/16 at 18:30 Fentanyl (Duragesic 12 Mcg/Hr Patch) 1 patch Q72H TRANSDERM Last administered on 11/21/16 18:31; Admin Dose 1 PATCH; Start 10/19/16 at 18:30 Hydromorphone HCl (Dilaudid) 1 mg Q4H PRN IV BREAKTHROUGH PAIN Last administered on 11/23/16 02:20; Admin Dose 1 MG; Start 10/19/16 at 23:00 Lorazepam (Ativan) 0.5 mg Q8H PRN IV anxiety, insomnia Last administered on 15:24; Admin Dose 0.5 MG; Start 10/21/16 at 18:00 Diagnostic Test (Pha) (Accu-Chek) 1 ea Q12 XX Last administered on 11/23/16 09 :00; Admin Dose 1 EA; Start 10/22/16 at 09:00 Metoclopramide HCl (Reglan) 5 mg Q6 IV Last administered on 11/23/16 13:29; Admin Dose 5 MG; Start 10/23/16 at 00:00 Enalaprilat (Vasotec Iv) 0.625 mg Q4H PRN IV ELEVATED BLOOD PRESSURE Last administered on 11/07/16 13:38; Admin Dose 0.625 MG; Start 10/29/16 at 10:00 Clonidine HCl (Catapres-Tts 2 Patch) 1 patch Q7D TRANSDERM Last administered on 11/17/16 22:23; Admin Dose 1 PATCH; Start 11/03/16 at 18:30 Lidocaine 15 ml 15 ml QID PRN PO SORE THROAT Last administered on 11/10/16 12: 53; Admin Dose 15 ML; Start 11/08/16 at 14:00 Fluconazole/ Sodium Chloride 50 ml @ 50 mls/hr Q24H IVPB Last administered on 17:08; Admin Dose 50 MLS/HR; Start 11/08/16 at 17:00 Acetaminophen (Ofirmev 1000mg/ 100ml Iv) 100 ml @ 400 mls/hr Q6H PRN IVPB FEVER Last administered on 11/22/16 06:55; Admin Dose 400 MLS/HR; Start at 16:00 Pantoprazole 40 mg 40 mg BID@06,18 IV Last administered on 11/23/16 05:26; Admin Dose 40 MG; Start 11/11/16 at 06:00 Ceftriaxone Sodium (Rocephin) 50 ml @ 100 mls/hr Q24H IVPB Last administered on 11/23/16 13:30; Admin Dose 100 MLS/HR; Start 11/12/16 at 13:30 Filgrastim (Neupogen) 300 mcg DAILY@17 SC Last administered on 11/22/16 18:47 ; Admin Dose 300 MCG; Start 11/20/16 at 17:00; Stop 11/24/16 at 01:00 DEMARCUS CHOUDHURY MD November 23, 2016 13:33
--- NOTE | 2016-11-23 15:06 | CONS ---
Date/Time of Note Date/Time of Note DATE: 11/23/16 TIME: 15:04 Assessment/Plan Assessment/Plan Chief Complaint/Hosp Course ID PROGRESS NOTE ABX DAY #14 14 total day course => Ceftriaxone + Fluconazole 24H INTERVAL SUMMARY * WBC rising today, TMax 99.9 * A/A/O -- responsive, doing OK, pleasant, polite, NAD * NGT, cachexia, family present * WBC elevated on Dexamethasone => IV Steroid demargination likely PHYSICAL EXAMINATION: GENERAL: A/A/O, VSS HEENT: NGT-> Suction NECK: Supple, trach-> midline CHEST: Equal chest rise bilaterally, without dyspnea on observation HEART: Pulse RRR ABDOMEN: Distended EXTREMITIES: Warm, SKIN: Warm, dry ID ASSESSMENT: 66 yo F admitted with: 1. Resolving sepsis likely due to peritonitis =>Status post alpha hemolytic strep bacteremia with repeat blood cultures negative. * Leukocytosis, Neupogen induced. 2. Gastric cancer- STG IV -> s/p partial gastrectomy/partial colectomy/ palliative ileostomy. 3. Bowel obstruction due to #2 4. s/p Intractable nausea, vomiting, and abdominal pain-> due to ileus vs SBO 5. s/p pulmonary edema w/likely superimposed developing HCAP -> s/p full ABX course 6. Anemia & Thrombocytopenia 7. Hypertension. INVASIVES: * PIV / Chemo Port ABX ALLERGIES: KNDA CURRENT ABX: # 14 / 14 total days => Ceftriaxone + Fluconazole ID RECOMMENDATIONS: 1. Continue ABX -> she has low grade temp today -- ?etiology? . Problems: Consultation Date/Type/Reason Admit Date/Time Oct 16, 2016 at 08:57 Type of Consultation: ID Referring Provider: KOBY FRANCO MD Exam/Review of Systems Vital Signs Vitals Vital Signs Date Time Temp Pulse Resp B/P Pulse Ox O2 Delivery O2 Flow Rate FiO2 11/23/16 07:56 98.9 84 20 130/60 98 11/22/16 14:20 21 11/22/16 09:12 Room Air Intake and Output 11/22/16 11/22/16 11/23/16 15:00 23:00 07:00 Intake Total 150 ml 1160 ml 1010 ml Output Total 300 ml 1450 ml Balance 150 ml 860 ml -440 ml Results Result Diagram: 11/23/16 0436 11/23/16 0436 Results 24 hrs Laboratory Tests Test 11/22/16 20:57 11/23/16 04:36 11/23/16 10:14 Bedside Glucose 111 113 White Blood Count 10.5 # Red Blood Count 3.17 L Hemoglobin 9.1 L Hematocrit 28.1 L Mean Corpuscular Volume 88.6 Mean Corpuscular Hemoglobin 28.7 L Mean Corpuscular Hemoglobin Concent 32.4 Red Cell Distribution Width 16.1 H Platelet Count 151 Mean Platelet Volume 12.0 H Neutrophils % 79.0 H Band Neutrophils % 10.0 H Lymphocytes % 9.0 L Monocytes % 2.0 Eosinophils % Neutrophils # 8.3 H Lymphocytes # 0.9 Monocytes # 0.2 L Eosinophils # Sodium Level 139 Potassium Level 4.1 Chloride Level 113 H Carbon Dioxide Level 26 Anion Gap 4 L Blood Urea Nitrogen 22 H Creatinine 0.41 L Glucose Level 135 # Calcium Level 8.1 L Medications Medications Current Medications Ondansetron HCl 4 mg 4 mg Q4H PRN IV NAUSEA AND/OR VOMITING Last administered on 11/23/16 02:19; Admin Dose 4 MG; Start 10/17/16 at 19:00 Total Parenteral Nutrition (Tpn) 1,000 ml @ 100 mls/hr Q10H IV Last administered on 11/23/16 04:50; Admin Dose 100 MLS/HR; Start 10/19/16 at 18:30 Fentanyl (Duragesic 12 Mcg/Hr Patch) 1 patch Q72H TRANSDERM Last administered on 11/21/16 18:31; Admin Dose 1 PATCH; Start 10/19/16 at 18:30 Hydromorphone HCl (Dilaudid) 1 mg Q4H PRN IV BREAKTHROUGH PAIN Last administered on 11/23/16 13:54; Admin Dose 1 MG; Start 10/19/16 at 23:00 Lorazepam (Ativan) 0.5 mg Q8H PRN IV anxiety, insomnia Last administered on 15:24; Admin Dose 0.5 MG; Start 10/21/16 at 18:00 Diagnostic Test (Pha) (Accu-Chek) 1 ea Q12 XX Last administered on 11/23/16 09 :00; Admin Dose 1 EA; Start 10/22/16 at 09:00 Metoclopramide HCl (Reglan) 5 mg Q6 IV Last administered on 11/23/16 13:29; Admin Dose 5 MG; Start 10/23/16 at 00:00 Enalaprilat (Vasotec Iv) 0.625 mg Q4H PRN IV ELEVATED BLOOD PRESSURE Last administered on 11/07/16 13:38; Admin Dose 0.625 MG; Start 10/29/16 at 10:00 Clonidine HCl (Catapres-Tts 2 Patch) 1 patch Q7D TRANSDERM Last administered on 11/17/16 22:23; Admin Dose 1 PATCH; Start 11/03/16 at 18:30 Lidocaine 15 ml 15 ml QID PRN PO SORE THROAT Last administered on 11/10/16 12: 53; Admin Dose 15 ML; Start 11/08/16 at 14:00 Fluconazole/ Sodium Chloride 50 ml @ 50 mls/hr Q24H IVPB Last administered on 17:08; Admin Dose 50 MLS/HR; Start 11/08/16 at 17:00 Acetaminophen (Ofirmev 1000mg/ 100ml Iv) 100 ml @ 400 mls/hr Q6H PRN IVPB FEVER Last administered on 11/22/16 06:55; Admin Dose 400 MLS/HR; Start at 16:00 Pantoprazole 40 mg 40 mg BID@06,18 IV Last administered on 11/23/16 05:26; Admin Dose 40 MG; Start 11/11/16 at 06:00 Ceftriaxone Sodium (Rocephin) 50 ml @ 100 mls/hr Q24H IVPB Last administered on 11/23/16 13:30; Admin Dose 100 MLS/HR; Start 11/12/16 at 13:30 Filgrastim (Neupogen) 300 mcg DAILY@17 SC Last administered on 11/22/16 18:47 ; Admin Dose 300 MCG; Start 11/20/16 at 17:00; Stop 11/24/16 at 01:00 BRYAN LEWIS NP November 23, 2016 15:06
[2016-11-23 16:00] VITALS: BP 130/67; PULSE 74; RESP 16
[2016-11-23] MEDS: FLUCONAZOLE 100 MG/NS (PMX) 50 ML IVPB SCH (17:19)
[2016-11-23] MEDS: FILGRASTIM 300 MCG INJ SC SCH (17:23)
[2016-11-23 19:15] VITALS: BP 149/67; RESP 16
[2016-11-24] MEDS: TPN 1,000 ML IV SCH ×3 (02:15→23:20)
[2016-11-24] MEDS: ONDANSETRON 4 MG INJ IV PRN (04:09)
[2016-11-24] MEDS: PANTOPRAZOLE 40 MG INJ IV SCH ×2 (05:58→17:44)
[2016-11-24] MEDS: METOCLOPRAMIDE 10 MG INJ IV SCH ×4 (05:59→23:20)
[2016-11-24] MEDS: HYDROmorphONE 1 MG/ML SYG IV PRN ×3 (06:01→23:52)
[2016-11-24 07:26] VITALS: BP 128/60; RESP 18
--- NOTE | 2016-11-24 08:05 | PN ---
DATE: 11/24/2016 HEMATOLOGY AND ONCOLOGY PROGRESS NOTE SUBJECTIVE: The patient is experiencing some discomfort when swallowing. She states it has been pr esent a few days. This appears to be both epigastric in substernal area. OBJECTIVE: GENERAL: The patient is a well-developed, but chronically ill-appearing female who is in no acute d istress. VITAL SIGNS: Temperature 98.6, pulse 77, respirations 16, blood pressure 149/67, pulse oximetry 99% . SKIN: No ecchymoses, no petechiae or rashes. HEENT: No mucosal lesions, slight scleral icterus. NECK: There has been a nasogastric tube in place in the left naris. CHEST: Clear to auscultation and percussion except for decreased breath sounds in both bases. HEART: Regular sinus rhythm, no S3, S4, or murmurs. ABDOMEN: Firm, particularly in the left upper abdomen surrounding the stoma. EXTREMITIES: Good range of motion. No clubbing, no edema, or cyanosis. No palpable cords or Cesar s sign. NEUROLOGIC: Normal. ASSESSMENT: 1. Abdominal carcinomatosis secondary to metastatic gastric carcinoma. 2. Bowel obstruction secondary to #1. PLAN: The patient is scheduled to receive paclitaxel again tomorrow. We will try repeat a CT scan to determine if there has been any improvement. Unfortunately, there are no other markers available . The patient's CEA is normal. I am concerned, however, that the patient does now appear to have i cterus. Will repeat a CBC and chemistry panel in the morning. It should be noted that the patient previously had a bilirubin up to 2.6, but that has since normalized. Dictated By: RADHA RODRIGUES MD, SR/NTS Conf#: [id number] DID#: [id number]
[2016-11-24] MEDS: ACCU-CHEK XX SCH ×2 (09:00→20:50)
[2016-11-24] MEDS: AL HYDROX/MG HYDROX/SIMETH 30 ML CUP PO SCH ×3 (09:28→20:00)
[2016-11-24 10:02] LABS: ALBUMIN 2.3 g/dl (3.3-4.9); POTASSIUM 4.2 mmol/L (3.5-5.1)
[2016-11-24 10:04] LABS: BILIRUBIN,DIRECT 1.3 mg/dl (0.00-0.20); BILIRUBIN,INDIRECT 0.7 mg/dl (0-1.1); CREATININE 0.39 mg/dl (0.44-1.00)
[2016-11-24 10:05] LABS: ALBUMIN/GLOBULIN RATIO 0.76; TOTAL PROTEIN 5.3 g/dl (6.1-8.1)
--- NOTE | 2016-11-24 13:26 | PN ---
DATE: 11/24/2016 SUBJECTIVE: No events overnight. The patient is alert, feels okay. No fevers. No CBC this morning. BUN 23, creatinine 0.39. INDWELLINGS: Right chest Port-A-Cath, NG tube. PHYSICAL EXAMINATION: GENERAL: Cachectic, chronically ill-appearing, elderly woman who is awake, in no distress. HEENT: Head atraumatic, normocephalic. Sclerae anicteric. Buccal mucosa dry. NECK: Supple. CHEST: Rise symmetrical. Breath sounds diminished to bases. HEART: S1, S2. ABDOMEN: Soft, bowel tones present. EXTREMITIES: Without cyanosis or edema. ASSESSMENT: 1. Status post strep bacteremia. 2. Metastatic gastric cancer with abdominal carcinomatosis. 3. Bowel obstruction secondary to that. 4. Status post pneumonia and sepsis. PLAN: The patient remains stable, oncology follows her. Repeat blood cultures negative. She completed 2 weeks IV antibiotics with Rocephin. She is getting fluconazole for oral thrush, which we will continue for now. We will discontinue Rocephin, we will panculture her if she spikes fever. Dictated By: KJ HUYNH DOOR MANAGER for LOLLY MUELLER/NTS Conf#: [id number] DID#: [id number] NYA
[2016-11-24] MEDS: FLUCONAZOLE 100 MG/NS (PMX) 50 ML IVPB SCH (17:43)
[2016-11-24] MEDS: CLONIDINE 0.2 MG/24 HR PATCH TRANSDERM SCH (17:44)
[2016-11-24] MEDS: FENTAnyl PATCH 12 MCG/HR TRANSDERM SCH (18:39)
[2016-11-24 19:32] VITALS: BP 164/78; RESP 18
--- NOTE | 2016-11-25 00:53 | PN ---
DATE: 11/24/2016 SUBJECTIVE: Patient is awake and alert, reports feeling tired and discouraged and wants to know abo ut the course of treatment and whether it is worth it. OBJECTIVE: VITAL SIGNS: Temperature 99.6, blood pressure 164/78, pulse 92, respiration rate 18, O2 saturation 96% on room air. HEENT: Anicteric sclerae. Oropharynx clear. CHEST: Minimal basilar rales bilaterally. CARDIAC: A II/ systolic murmur. Regular rhythm and rate. ABDOMEN: Active bowel sounds, soft, nondistended, nontender. Left ileostomy. EXTREMITIES: No clubbing, cyanosis, or edema. LABORATORY DATA: Sodium 142, potassium 4.2, chloride 115, bicarbonate 28, BUN 23, creatinine 0.39, glucose 114. Liver enzymes notable for increased total bilirubin at 2.0 and direct bilirubin at 1.3 and alkaline phosphatase at 268, total protein and albumin are low at 5.3 and 2.3 respectively. ASSESSMENT AND PLAN: 1. Metastatic gastric cancer with abdominal carcinomatosis. Continue course of chemotherapy for no w. Will discuss with Dr. Henderson regarding reevaluation for progression of disease, possibly repeat ing abdominal CT sometime this week. The patient and I have decided that if there are actually sign s that the disease advancing, that she may not want to keep going with the chemotherapy; however, if there are signs that the cancer is responding to treatment, she would be encouraged to continue. 2. History of sepsis with bacteremia and pneumonia. The patient is starting to have a low-grade te mperature tonight. We will recheck a CBC and chest x-ray in the a.m. and monitor her for signs of i nfection. 3. Reactive depression, appropriate for patient's circumstances. If progress, may discuss with her regarding a trial of SSRI. Dictated By: KOBY FRANCO MD DP/[place] Conf#: [id number] DID#: [id number]
[2016-11-25] MEDS: AL HYDROX/MG HYDROX/SIMETH 30 ML CUP PO SCH (01:51)
[2016-11-25] MEDS: METOCLOPRAMIDE 10 MG INJ IV SCH ×3 (05:11→17:48)
[2016-11-25] MEDS: PANTOPRAZOLE 40 MG INJ IV SCH ×2 (05:11→17:47)
[2016-11-25 05:48] LABS: ABNORMAL IP MESSAGE 1; BASOPHILS % 0.5 % (0.0-2.0); EOSINOPHILS % 0.1 % (0.0-7.0); HEMATOCRIT 26.9 % (37.0-47.0); HEMOGLOBIN 8.8 g/dl (12.0-16.0); LYMPHOCYTES # 1.2 10^3/ul (0.8-2.9); LYMPHOCYTES % 14.9 % (15.0-51.0); MEAN CORPUSCULAR HEMOGLOBIN 29.4 pg (29.0-33.0); MEAN CORPUSCULAR HGB CONC 32.7 g/dl (32.0-37.0); MEAN PLATELET VOLUME 11.7 fl (7.4-10.4); MONOCYTE # 1.4 10^3/ul (0.3-0.9); MONOCYTES % 16.7 % (0.0-11.0); NEUTROPHIL # 5.5 10^3/ul (1.6-7.5); NEUTROPHILS % 67.2 % (39.0-77.0); NUCLEATED RED BLOOD CELLS% 0.2 /100WBC (0.0-0.0); PLATELET COUNT 169 10^3/UL (140-415); RED BLOOD COUNT 2.99 10^6/ul (4.20-5.40); RED CELL DISTRIBUTION WIDTH 16.1 % (11.5-14.5); WHITE BLOOD COUNT 8.3 10^3/ul (4.8-10.8)
[2016-11-25 06:04] LABS: POTASSIUM 3.8 mmol/L (3.5-5.1)
[2016-11-25 06:06] LABS: CREATININE 0.37 mg/dl (0.44-1.00)
[2016-11-25 06:07] LABS: CALCIUM 8.4 mg/dl (8.4-10.2); MAGNESIUM 1.7 mg/dl (1.7-2.5); PHOSPHORUS 2.9 mg/dl (2.5-4.9)
[2016-11-25 06:23] LABS: ADD SCAN DIFF YES
[2016-11-25 07:26] VITALS: BP 111/60; RESP 20
[2016-11-25 08:10] VITALS: BP 152/70; RESP 20
[2016-11-25] MEDS: ACCU-CHEK XX SCH ×2 (09:00→21:00)
[2016-11-25] MEDS: LIDOCAINE 2% VISC 15 ML CUP PO SCH ×4 (09:12→21:00)
[2016-11-25] MEDS: DEXAMETHASONE 10 MG/ML 1 ML INJ IV SCH ×2 (09:12→15:32)
--- NOTE | 2016-11-25 09:55 | PN ---
DATE: 11/25/2016 HEMATOLOGY AND ONCOLOGY PROGRESS NOTE SUBJECTIVE: The patient continues to complain of some pain in the esophagus and epigastric area upo n swallowing. Did not get relief from use of aluminum hydroxide antacid. No other new complaints. OBJECTIVE: GENERAL: The patient is a well-developed chronically ill-appearing female in no acute distress. VITAL SIGNS: Temperature 99.6, respirations 18, pulse 20, blood pressure 164/70, pulse oximetry 96% on room air. SKIN: No ecchymosis, no petechiae or rashes. HEENT: No mucosal lesions. Trace scleral icterus. There is an NG tube in place in the left naris. NECK: No jugular venous distention or thyroid enlargement. CHEST: Decreased breath sounds in both bases. There is a right anterior chest Port-A-Cath in place which has been accessed. HEART: Regular sinus rhythm, no S3, S4, or murmurs. ABDOMEN: Unchanged. There is firmness around the stoma in the left upper abdomen. Bowel sounds ar e absent. EXTREMITIES: No clubbing, edema or cyanosis. No palpable cords or Homans sign. NEUROLOGIC: Normal except for weakness. LABORATORY DATA: Sodium 142, potassium 3.8, creatinine 0.37, and BUN 19. Yesterday his total bilir ubin was 2, direct bilirubin 1.0, indirect 0.7, AST 43, ALT 46, alkaline phosphatase 268. White cou nt 8300, hemoglobin 8.8, hematocrit is 26.9, and platelet count 169,000. ASSESSMENT: 1. Metastatic gastric carcinoma with abdominal carcinomatosis. 2. Bowel obstruction secondary to #1. PLAN: The patient is to receive paclitaxel today when medication becomes available. The use of aluminum hydroxide did not help the patient's esophageal pain. We will try giving the pa tient viscous lidocaine to swallow around the tube. We will repeat a CT scan of the abdomen and pelvis on November 26 or November 27 in order to determine if there has been any objective response to therapy. Dictated By: RADHA RODRIGUES MD for MICHAEL PIERCE MD SR/NTS Conf#: [id number] DID#: [id number]
[2016-11-25] MEDS ORDERED: IOHEXOL 14.3 MG(I)/ML (ADULT) BTL PO ONE (10:00)
[2016-11-25] MEDS ORDERED: BARIUM SULF 2% 450 ML BTL (BERRY SMOOTHIE) PO ONE (10:30)
[2016-11-25] MEDS: TPN 1,000 ML IV SCH (12:14)
--- NOTE | 2016-11-25 14:13 | PN ---
DATE: 11/25/2016 SUBJECTIVE: No acute changes. The patient is sleeping. No fevers. No events. NG tube to suction . ANTIMICROBIALS: Fluconazole. INDWELLINGS: Right chest Port-A-Cath and NG tube. LABORATORY DATA: WBC today 8.3, platelets 169, no shift, no bands. BUN 19, creatinine 0.37. PHYSICAL EXAMINATION: GENERAL: This is a chronically ill-appearing, fragile, elderly woman who is in no distress. HEENT: Head atraumatic, normocephalic. Sclerae anicteric. Buccal mucosa dry. NECK: Supple. CHEST: Rise symmetrical. Breath sounds clear. HEART: S1, S2. ABDOMEN: Soft, bowel sounds present. EXTREMITIES: Without cyanosis. ASSESSMENT: 1. Status post sepsis with bacteremia, completed antibiotics. 2. Status post pneumonia. 3. Small-bowel obstruction secondary to metastatic gastric cancer with abdominal carcinomatosis. 4. Cachexia. PLAN: The patient remains stable. , continue present care. Follow oncology recommendations. Plan to repeat CT of the abdomen and pelvis to evaluate response to therapy. We will panculture p. r.n. if she spikes fever. Dictated By: KJ HUYNH SCENIC ARTS SUPERVISOR for LOLLY MUELLER/[place] Conf#: [id number] DID#: [id number]
[2016-11-25] MEDS: FLUCONAZOLE 100 MG/NS (PMX) 50 ML IVPB SCH (17:47)
[2016-11-25 19:49] VITALS: BP 145/67; RESP 20
--- NOTE | 2016-11-25 20:10 | PN ---
DATE: 11/25/2016 SUBJECTIVE: Patient awake, alert. No active complaints. OBJECTIVE VITAL SIGNS: Temperature 98.9, blood pressure 152/70, pulse of 89, respiration rate 20, O2 saturati on 97% on room air. HEENT: Anicteric sclerae. Oropharynx clear. CHEST: Clear to auscultation anteriorly. CARDIAC: II/ systolic murmur. ABDOMEN: Active bowel sounds, nontender. Left abdominal ileostomy. EXTREMITIES: No clubbing, cyanosis, or edema. LABORATORY DATA: WBC 8.3; hemoglobin 8.8; hematocrit 26.9; platelet count 169,000. Sodium 142, pot assium 3.8, chloride 114, bicarbonate 27, BUN 19, creatinine 0.37, glucose 106; calcium, phosphorus and magnesium are within normal limits. ASSESSMENT AND PLAN 1. Gastric carcinoma. Continue treatment as per oncology. Monitor CBC for leukopenia, anemia and thrombocytopenia. 2. Nausea and vomiting caused by an abdominal carcinomatosis. Continue to treat symptomatically wi th NG tube suction and TPN. Of note, is that patient's bilirubin has been waxing and waning; we lilliam l continue to monitor this as well. Dictated By: KOBY FRANCO MD DP/NTS Conf#: [id number] DID#: [id number]
[2016-11-25] MEDS ORDERED: GLUCOSE GEL 15 GRAM TUBE BUCCAL PRN (22:00)
[2016-11-25] MEDS ORDERED: GLUCOSE GEL 15 GRAM TUBE PO PRN ×2 (22:00)
[2016-11-25] MEDS ORDERED: GLUCAGON 1 MG INJ IM PRN (22:00)
[2016-11-25] MEDS ORDERED: DEXTROSE 50% 50 ML SYRINGE IV PRN ×2 (22:00)
[2016-11-25] MEDS: FAMOTIDINE 20 MG INJ IV SCH (22:15)
[2016-11-25] MEDS: DEXAMETHASONE 4 MG/ML 20 MG in DEXTROSE 5% 50 ML IV SCH (22:15)
[2016-11-25] MEDS: ONDANSETRON 4 MG INJ IV PRN (22:15)
[2016-11-25] MEDS: DIPHENHYDRAMINE 50 MG INJ IV SCH (22:15)
[2016-11-25 23:10] VITALS: BP 152/74; PULSE 70; RESP 16
[2016-11-25] MEDS: SOD CHLORIDE 0.9% IV SCH (23:20)
[2016-11-25] MEDS: PACLITAXEL IV SCH (23:20)
[2016-11-25 23:30] VITALS: BP 142/70; PULSE 68; RESP 16
[2016-11-25 23:45] VITALS: BP 156/71; PULSE 62; RESP 18
[2016-11-26] VITALS (9 sets, daily range): BP systolic 133–160; BP diastolic 66–77; PULSE 55–62; RESP 18–20
[2016-11-26] MEDS: METOCLOPRAMIDE 10 MG INJ IV SCH ×5 (00:17→23:42)
[2016-11-26] MEDS: INSULIN ASPART [NOVOLOG] 3 ML PEN SC SCH ×5 (01:00→23:49)
[2016-11-26] MEDS: TPN 1,000 ML IV SCH ×4 (02:00→20:29)
[2016-11-26] MEDS: PANTOPRAZOLE 40 MG INJ IV SCH ×2 (05:44→17:54)
[2016-11-26 05:46] LABS: CALCIUM 7.5 mg/dl (8.4-10.2); CREATININE 0.35 mg/dl (0.44-1.00); MAGNESIUM 1.7 mg/dl (1.7-2.5); PHOSPHORUS 3.4 mg/dl (2.5-4.9)
[2016-11-26] MEDS: LIDOCAINE 2% VISC 15 ML CUP PO SCH ×4 (09:00→20:33)
--- NOTE | 2016-11-26 13:25 | PN ---
DATE: 11/26/2016 SUBJECTIVE: No events overnight. No fevers. Patient is alert, sitting comfortably in bed. No lab s today. She is awaiting repeat CT of the abdomen. INDWELLINGS: Right chest Port-A-Cath, NG tube. ANTIMICROBIALS: Remains on Diflucan. PHYSICAL EXAMINATION: GENERAL: This is a well-developed, cachectic elderly woman who is awake, in no distress. HEENT: Head atraumatic, normocephalic. Sclerae anicteric. Buccal mucosa dry. NECK: Supple. CHEST: Rise symmetrical. Breath sounds diminished to bases. HEART: S1, S2. ABDOMEN: Soft. Bowel tones present. ASSESSMENT: 1. Status post sepsis, pneumonia and streptococcal bacteremia, completed antibiotics. 2. Small-bowel obstruction secondary to metastatic gastric CA with abdominal carcinomatosis. 3. Cachexia. 4. Nausea and vomiting, remains on suction through NG tube. PLAN: The patient remains stable pending repeat CT of the abdomen and pelvis. We are going to disc ontinue Diflucan. We will panculture her p.r.n. if she spikes fever. Dictated By: KJ HUYNH AUTO MECHANIC for LOLLY GUALLPA MD NI/NTS Conf#: [id number] DID#: [id number]
--- NOTE | 2016-11-26 13:42 | PN ---
Date/Time of Note Date/Time of Note DATE: 11/26/16 TIME: 13:40 Assessment/Plan VTE Prophylaxis VTE Prophylaxis Intervention: SCD's Lines/Catheters IV Catheter Type (from Nrs): PORT A CATH Urinary Cath still in place: No Assessment/Plan Assessment/Plan Chemotherapy was given yesterday. CT to assess response to chemotherapy to be done later today. No other new recommendations. Subjective 24 Hr Interval Summary Free Text/Dictation Chemotheraqpy given last night without difficulty. CT is not yet done. Exam/Review of Systems Vital Signs Vitals Vital Signs Date Time Temp Pulse Resp B/P Pulse Ox O2 Delivery O2 Flow Rate FiO2 11/26/16 08:34 97.4 58 20 157/67 98 11/22/16 14:20 21 11/22/16 09:12 Room Air Intake and Output 11/25/16 11/25/16 11/26/16 15:00 23:00 07:00 Intake Total 400 ml 815 ml 633.8333 ml Output Total 950 ml 670 ml Balance 400 ml -135 ml -36.1667 ml Exam Constitutional: alert, oriented ENMT: other (NG tube in place) Respiratory: clear to auscultation Cardiovascular: regular rate and rhythm Gastrointestinal: non-tender, soft Results Result Diagram: 11/25/16 0458 11/26/16 0434 Results 24 hrs Laboratory Tests Test 11/25/16 20:53 11/26/16 01:01 11/26/16 04:34 11/26/16 05:55 Bedside Glucose 182 116 127 Sodium Level 144 Potassium Level 4.0 Chloride Level 121 H Carbon Dioxide Level 23 Anion Gap 4 L Blood Urea Nitrogen 22 H Creatinine 0.35 L Glucose Level 111 Calcium Level 7.5 L Phosphorus Level 3.4 Magnesium Level 1.7 Test 11/26/16 12:26 Bedside Glucose 98 Medications Medications Current Medications Ondansetron HCl 4 mg 4 mg Q4H PRN IV NAUSEA AND/OR VOMITING Last administered on 11/25/16 22:15; Admin Dose 4 MG; Start 10/17/16 at 19:00 Total Parenteral Nutrition (Tpn) 1,000 ml @ 100 mls/hr Q10H IV Last administered on 11/26/16 05:44; Admin Dose 100 MLS/HR; Start 10/19/16 at 18:30 Fentanyl (Duragesic 12 Mcg/Hr Patch) 1 patch Q72H TRANSDERM Last administered on 11/24/16 18:39; Admin Dose 1 PATCH; Start 10/19/16 at 18:30 Hydromorphone HCl (Dilaudid) 1 mg Q4H PRN IV BREAKTHROUGH PAIN Last administered on 11/24/16 23:52; Admin Dose 1 MG; Start 10/19/16 at 23:00 Lorazepam (Ativan) 0.5 mg Q8H PRN IV anxiety, insomnia Last administered on 15:24; Admin Dose 0.5 MG; Start 10/21/16 at 18:00 Metoclopramide HCl (Reglan) 5 mg Q6 IV Last administered on 11/26/16 12:27; Admin Dose 5 MG; Start 10/23/16 at 00:00 Enalaprilat (Vasotec Iv) 0.625 mg Q4H PRN IV ELEVATED BLOOD PRESSURE Last administered on 11/07/16 13:38; Admin Dose 0.625 MG; Start 10/29/16 at 10:00 Clonidine HCl (Catapres-Tts 2 Patch) 1 patch Q7D TRANSDERM Last administered on 11/24/16 17:44; Admin Dose 1 PATCH; Start 11/03/16 at 18:30 Lidocaine 15 ml 15 ml QID PRN PO SORE THROAT Last administered on 11/10/16 12: 53; Admin Dose 15 ML; Start 11/08/16 at 14:00 Acetaminophen (Ofirmev 1000mg/ 100ml Iv) 100 ml @ 400 mls/hr Q6H PRN IVPB FEVER Last administered on 11/22/16 06:55; Admin Dose 400 MLS/HR; Start at 16:00 Pantoprazole (Protonix Iv) 40 mg BID@06,18 IV Last administered on 11/26/16 05: 44; Admin Dose 40 MG; Start 11/11/16 at 06:00 Lidocaine 15 ml 15 ml QID PO Last administered on 11/25/16 09:12; Admin Dose 15 ML; Start 11/25/16 at 09:00; Stop 11/30/16 at 09:00 Paclitaxel/Sodium Chloride (taxOL/NS) 263.8333 ml @ 88.333 m... Q7D IV Last administered on 11/25/16 23:20; Admin Dose 88.333 MLS/HR; Start 11/25/16 at 21: 00 Diphenhydramine HCl (Benadryl) 50 mg Q7D IV Last administered on 11/25/16 22: 15; Admin Dose 50 MG; Start 11/25/16 at 20:00 Famotidine 20 mg 20 mg Q7D IV Last administered on 11/25/16 22:15; Admin Dose 20 MG; Start 11/25/16 at 20:00 Dexamethasone/ Dextrose (Decadron/D5W) 55 ml @ 252 mls/hr Q7D IV Last administered on 11/25/16 22:15; Admin Dose 252 MLS/HR; Start 11/25/16 at 20:00 Insulin Aspart (Novolog Insulin Pen) NOVOLOG *MILD* ALGORI... Q6 SC ; Start 11/26 at 00:00 Miscellaneous Information 1 ea NOTE XX ; Start 11/25/16 at 22:00 Glucose (Glutose) 15 gm Q15M PRN PO DECREASED GLUCOSE; Start 11/25/16 at 22:00 Glucose (Glutose) 22.5 gm Q15M PRN PO DECREASED GLUCOSE; Start 11/25/16 at 22: 00 Dextrose (D50w Syringe) 25 ml Q15M PRN IV DECREASED GLUCOSE; Start 11/25/16 at 22:00 Dextrose (D50w Syringe) 50 ml Q15M PRN IV DECREASED GLUCOSE; Start 11/25/16 at 22:00 Glucagon (Glucagen) 1 mg Q15M PRN IM DECREASED GLUCOSE; Start 11/25/16 at 22:00 Glucose (Glutose) 15 gm Q15M PRN BUCCAL DECREASED GLUCOSE; Start 11/25/16 at 22 :00 CHACHA LEDESMA MD Nov 26, 2016 13:42
--- NOTE | 2016-11-26 16:59 | RADRPT ---
PROCEDURE: CT of the abdomen and pelvis CLINICAL INDICATION: Abdominal pain. History of gastric cancer. TECHNIQUE: The study was performed utilizing a [employer] 64-slice multidetector CT scanner. Dir ect spiral axial sections were obtained through the abdomen and pelvis with intravenous contrast. Af ter administration of 85 cc of Omnipaque-300, postcontrast images were obtained. Coronal and sagitt al reformatted images were performed. The CTDI vol is 5.11 mGy and the DLP is 257.2 mGy-cm. The aguilar ges were reviewed on a PACS workstation. COMPARISON: 10/23/2016 FINDINGS: CT abdomen: A trace right pleural effusion is seen with a small left pleural effusion with compress adrián atelectasis. The pleural effusions have increased in size compared to the prior examination. T he heart is not enlarged. No pericardial effusion is seen. The liver is normal in size and contour. No focal liver lesions or intrahepatic biliary dilatation is seen. The gallbladder is distended. Mild common bile duct dilatation is once again seen which ap pear sterile. The spleen, pancreas, and adrenal glands are unremarkable in appearance. The kidneys are normal in size and contour enhance normally. No evidence of hydronephrosis or nephrolithiasis i s seen. A nasogastric tube is identified once again. Again seen is significant distension of the Lydia-en-Y loop measuring 4.8 cm in maximal diameter which has not changed significantly in diameter. A left lower quadrant stoma is once again seen which appears to contain the distal descending colon. The s mall and remainder of the large bowel are otherwise unremarkable in course and caliber. No inflamma tory changes in the periappendiceal region is seen. No enlarged lymph nodes are seen. The aorta is normal in caliber. Aortic calcifications are seen. Again seen is a multiloculated fluid collection. The largest component is deep to the antrum abdominal wall and measures approximately 10.6 x 1.7 cm in size and has not changed significantly. Enhancement of the wall of the loculated fluid collecti on is once again seen. Mesenteric edema is once again noted. CT pelvis: Nonspecific presacral edema is once again seen and has not changed significantly. No pe lvic mass or adenopathy is seen. There is no free fluid. The urinary bladder is normal. The uterus is absent. No osseous lesions are seen. Degenerative spondylosis of the lumbar spine is seen. Diffu se anasarca is once again seen which has mildly decreased. IMPRESSION: 1. Multiloculated fluid collection which has not changed significantly in size compared to the prio r examination. 2. Significantly dilated Lydia-en-Y loop of the duodenum and has not changed significantly. 3. Small left pleural effusion and trace right pleural effusion which has decreased. 4. Diffuse anasarca which has mildly decreased. 5. Left lower quadrant stoma again seen and is unchanged. RPTAT: HPNM Physician Lily Date Time Electronically viewed and signed by Alphonse Marcelo Physician on 11/26/2016 16:58 /
[2016-11-26] MEDS: [UNRECOGNIZED DRUG - REMARK] XX SCH (17:00)
[2016-11-26] MEDS: HYDROmorphONE 1 MG/ML SYG IV PRN (17:55)
[2016-11-26] MEDS ORDERED: SOD CHLORIDE 0.9% 100 ML ONE (18:45)
[2016-11-26] MEDS ORDERED: IOHEXOL 300MG/ML 150 ML BTL ONE (18:45)
--- NOTE | 2016-11-26 21:25 | PN ---
DATE: 11/26/2016 SUBJECTIVE: The patient is awake and alert, wants to talk about the course of treatment for her gastric carcinoma. PHYSICAL EXAMINATION: VITAL SIGNS: Temperature 97.4, blood pressure 160/66, pulse of 69, respiration rate 18, O2 saturation 99% on room air. HEENT: Anicteric sclerae. Oropharynx clear. Left nasogastric tube. CHEST: Lungs are clear to auscultation. CARDIAC: Has II/ systolic murmur. ABDOMEN: Active bowel sounds. Left ileostomy. EXTREMITIES: No clubbing, cyanosis, or edema. LABORATORY DATA: Sodium is 144, potassium 4.0, BUN 22, creatinine 0.35, glucose 111. IMAGING: The abdominal and pelvic CT shows essentially unchanged findings, which includes multiloculated fluid collection, a significantly dilated Lydia-en- Y loop of the duodenum, small left pleural effusion, trace right pleural effusion, diffuse anasarca, and left lower quadrant stoma. ASSESSMENT AND PLAN: 1. Gastric carcinoma. Continue chemotherapy as planned by oncology. Patient will discuss with Dr. Henderson and binder caser about her plan of care. At this point, she would prefer to continue to receive chemotherapy in the hospital. 2. Anemia. Continue to monitor and transfuse as needed. 3. Hypertension. Continue current blood pressure medicine catapres transdermal and increase dosage if systolic blood pressure continues to rise above 160. 4. Small-bowel obstruction. Continue nasogastric suction and TPN. I will discuss with accounting instructor and sirgery regarding possible endoscopy or laparoscopy in the event that patient's obstruction is from scar tissue adhesion rather than carcinomatosis. Dictated By: KOBY FRANCO MD DP/OH Conf#: [id number] DID#: [id number] MTDD
[2016-11-27] VITALS: BP 136/72; PULSE 64; RESP 18
[2016-11-27] MEDS: [UNRECOGNIZED DRUG - REMARK] XX SCH ×3 (01:00→17:00)
[2016-11-27] MEDS: INSULIN ASPART [NOVOLOG] 3 ML PEN SC SCH ×3 (06:00→18:00)
[2016-11-27] MEDS: METOCLOPRAMIDE 10 MG INJ IV SCH ×3 (06:17→18:06)
[2016-11-27] MEDS: PANTOPRAZOLE 40 MG INJ IV SCH ×2 (06:17→18:06)
[2016-11-27 07:05] LABS: CALCIUM 8.4 mg/dl (8.4-10.2); CREATININE 0.37 mg/dl (0.44-1.00); MAGNESIUM 2.2 mg/dl (1.7-2.5); PHOSPHORUS 3.7 mg/dl (2.5-4.9); POTASSIUM 4.4 mmol/L (3.5-5.1)
[2016-11-27] MEDS: TPN 1,000 ML IV SCH ×2 (07:10→20:29)
[2016-11-27 08:00] VITALS: BP 157/64; RESP 18
[2016-11-27] MEDS: LIDOCAINE 2% VISC 15 ML CUP PO SCH ×4 (09:00→21:00)
--- NOTE | 2016-11-27 09:10 | PN ---
DATE: 11/27/2016 SUBJECTIVE: The patient did receive paclitaxel on 11/25/2016. She has had no new complaints. She has had less complaints of substernal and epigastric pain on swallowing. The patient does not complain of any mouth discomfort. No abdominal cramping. OBJECTIVE: GENERAL: The patient is a well-developed, but chronically ill-appearing female, in no acute distres s. VITAL SIGNS: Temperature 98, pulse 63, respirations 18, blood pressure 157/64, and pulse oximetry i s 98% on room air. SKIN: No ecchymosis, no petechiae or rashes, but pale. HEENT: Normocephalic. Alopecia. No mucosal lesions. Trace scleral icterus. There is a NG tube i n place in the patient's left naris. NECK: Supple. No jugular venous distention or thyroid enlargement. CHEST: Clear, except for decreased breath sounds in both bases. There are no rhonchi, wheezes, ral es or rubs. There is an accessed Port-A-Cath in the right anterior chest. HEART: Regular sinus rhythm. No S3, S4 or murmurs. ABDOMEN: Soft, except for the firmness and induration in the area of the left-sided colostomy. Ira el sounds are absent. There is no succussion splash. EXTREMITIES: Good range of motion. No clubbing, no edema or cyanosis. No palpable cords or Homans sign. NEUROLOGIC: Normal, except for weakness. The patient did have a CT scan of the abdomen and pelvis done on 11/26/2016 that demonstrates a mult iloculated fluid collection, which is not changed from previous examination. There is still signifi cant dilatation of the Lydia-en-Y loop of the duodenum, which is not changed. The pleural effusions have decreased in size. Chemistries: Sodium 143, potassium 4.4, BUN 29, creatinine 0.37, calcium 8.4. No CBC done today. ASSESSMENT: 1. Metastatic gastric carcinoma with abdominal carcinomatosis. 2. Bowel obstruction secondary to #1. Will repeat CMP in the a.m., as well as CBC. PLAN: There has been no resolution of the patient's admitting symptoms and no significant evidence o f progression. Will request Dr. Chaidez to see the patient in consultation to determine whether the re is any surgical intervention indicated to relieve obstruction. Dictated By: RADHA RODRIGUES MD, SR/[place] Conf#: [id number] DID#: [id number]
[2016-11-27] MEDS ORDERED: VANCOMYCIN IV PER PHARMACY XX SCH (13:30)
[2016-11-27] MEDS: PIPER-TAZO 3.375 GM IV (PMX) 100 ML IVPB SCH ×2 (13:39→22:04)
--- NOTE | 2016-11-27 13:40 | PN ---
DATE: 11/27/2016 SUBJECTIVE: The patient is sleeping. No fevers per report. NG tube to suction. She had been complaining of throat pain and is getting viscous lidocaine with some relief. DIAGNOSTICS: CT of the abdomen and pelvis from yesterday revealed multiloculated fluid collection, which has not changed significantly in size compared to prior examination. INDWELLINGS: Right chest Port-A-Cath, NG tube. ANTIMICROBIALS: The patient is off antibiotics. PHYSICAL EXAMINATION: GENERAL: This is a cachectic elderly woman, who is in no distress. HEENT: Head atraumatic, normocephalic. Sclerae anicteric. Buccal mucosa dry. NECK: Supple. Trachea midline. CHEST: Rise symmetrical. Breath sounds diminished. HEART: S1, S2. ABDOMEN: Soft, bowel sounds present. EXTREMITIES: Without cyanosis. ASSESSMENT: 1. Bowel obstruction secondary to metastatic gastric carcinoma and abdominal carcinomatosis. 2. Persistent loculated intra-abdominal fluid collection, without any significant change per repeat CT of the abdomen. 3. Cachexia. 4. Status post streptococcal bacteremia, treated. PLAN: We are going to start patient on Zosyn, Diflucan and vancomycin. Await for surgical evaluation. Follow oncology recommendations. Dictated By: KJ HUYNH CASTING TESTER for LOLLY MUELLER/NTS Conf#: [id number] DID#: [id number] MTDD
[2016-11-27] MEDS ORDERED: VANCOMYCIN 1 GM in NS 250 ML IVPB SCH (14:30)
--- NOTE | 2016-11-27 16:20 | PN ---
DATE: 11/27/2016 SUBJECTIVE: The patient is awake, alert, oriented. OBJECTIVE: VITAL SIGNS: Temperature 98.0, blood pressure 157/64, pulse of 63, respiration rate 18, O2 saturation 98% on room air. HEENT: Anicteric sclerae. Oropharynx clear. Left nasogastric tube. CHEST: Lungs are clear to auscultation anteriorly with a II/ systolic murmur. ABDOMEN: Active bowel sounds, nontender. LABORATORY DATA: Sodium 143, potassium 4.4, BUN 29, creatinine 0.37, glucose 146, calcium 8.4, phosphorus 3.7, magnesium 2.2. ASSESSMENT AND PLAN: Gastric cancer with abdominal carcinomatosis and small- bowel obstruction, status post a course of chemotherapy, but the patient still requires NG tube suction and TPN. Further treatment will be determined after Dr. Henderson has further discourse with the [facility] oncologist Dr. Morataya. Will continue the current supportive treatment for now. There is a tentative plan for discharge to a [place] [facility] facility if the patient is done with inpatient chemotherapy. I have discussed patient's condition with her previous surgeon Dr. Michel and her previous security engineer Dr. Teresa Cha. Neither of them feel that any further intervention is indicated or would be helpful at this point. Dictated By: KOBY FRANCO MD DP/OH Conf#: [id number] DID#: [id number] MTDD
[2016-11-27 19:00] VITALS: BP 119/61; RESP 16
[2016-11-27] MEDS: FENTAnyl PATCH 12 MCG/HR TRANSDERM SCH (20:24)
[2016-11-27] MEDS: VANCOMYCIN 750 MG in SOD CHLORIDE 0.9% 150 ML IVPB SCH (23:22)
[2016-11-28] MEDS: METOCLOPRAMIDE 10 MG INJ IV SCH ×4 (00:59→17:34)
[2016-11-28] MEDS: [UNRECOGNIZED DRUG - REMARK] XX SCH ×3 (01:00→17:00)
[2016-11-28] MEDS: TPN 1,000 ML IV SCH ×3 (04:00→17:05)
[2016-11-28] MEDS: PANTOPRAZOLE 40 MG INJ IV SCH ×2 (05:31→17:34)
[2016-11-28] MEDS: PIPER-TAZO 3.375 GM IV (PMX) 100 ML IVPB SCH ×3 (05:31→21:38)
[2016-11-28] MEDS: INSULIN ASPART [NOVOLOG] 3 ML PEN SC SCH ×4 (05:44→18:00)
[2016-11-28 05:55] LABS: ADD SCAN DIFF NO
[2016-11-28 05:59] LABS: ABNORMAL IP MESSAGE 1; BASOPHILS % 0.2 % (0.0-2.0); HEMATOCRIT 26.2 % (37.0-47.0); HEMOGLOBIN 8.6 g/dl (12.0-16.0); LYMPHOCYTES # 0.5 10^3/ul (0.8-2.9); MEAN CORPUSCULAR HEMOGLOBIN 29.3 pg (29.0-33.0); MEAN CORPUSCULAR HGB CONC 32.8 g/dl (32.0-37.0); MEAN CORPUSCULAR VOLUME 89.1 fl (82.0-101.0); MONOCYTE # 0.1 10^3/ul (0.3-0.9); MONOCYTES % 2.1 % (0.0-11.0); NEUTROPHIL # 5.5 10^3/ul (1.6-7.5); NEUTROPHILS % 89.1 % (39.0-77.0); PLATELET COUNT 119 10^3/UL (140-415); RED BLOOD COUNT 2.94 10^6/ul (4.20-5.40); RED CELL DISTRIBUTION WIDTH 17.2 % (11.5-14.5); WHITE BLOOD COUNT 6.2 10^3/ul (4.8-10.8)
[2016-11-28 06:15] LABS: CALCIUM 8.2 mg/dl (8.4-10.2); CREATININE 0.41 mg/dl (0.44-1.00); MAGNESIUM 2.3 mg/dl (1.7-2.5); PHOSPHORUS 3.7 mg/dl (2.5-4.9); POTASSIUM 4.4 mmol/L (3.5-5.1)
[2016-11-28] MEDS: VANCOMYCIN 750 MG in SOD CHLORIDE 0.9% 150 ML IVPB SCH ×2 (06:23→15:55)
[2016-11-28 08:58] VITALS: BP 175/79; RESP 18
[2016-11-28] MEDS: LIDOCAINE 2% VISC 15 ML CUP PO SCH ×4 (09:00→21:00)
--- NOTE | 2016-11-28 10:23 | PN ---
Date/Time of Note Date/Time of Note DATE: 11/28/16 TIME: 10:21 Assessment/Plan VTE Prophylaxis VTE Prophylaxis Intervention: anti-embolic stocking Lines/Catheters IV Catheter Type (from Nrs): portacath Urinary Cath still in place: No Assessment/Plan Assessment/Plan Pt had CT that shows no significant changes so far. No chemotherapy plans over the weekend. Dr. Henderson will discuss whether to continue chemotherapy with her when he returns. Subjective 24 Hr Interval Summary Free Text/Dictation Pt weak but otherwise stable. Exam/Review of Systems Vital Signs Vitals Vital Signs Date Time Temp Pulse Resp B/P Pulse Ox O2 Delivery O2 Flow Rate FiO2 11/28/16 08:58 98.1 97 18 175/79 98 Intake and Output 11/27/16 11/27/16 11/28/16 15:00 23:00 07:00 Intake Total 225 ml 1410 ml 1220 ml Output Total 980 ml 600 ml Balance 225 ml 430 ml 620 ml Exam Constitutional: alert, oriented Head: normocephalic Eyes: nl conjunctiva ENMT: other (ng tube in place) Neck: supple Respiratory: clear to auscultation Cardiovascular: regular rate and rhythm Gastrointestinal: non-tender, soft Results Result Diagram: 11/28/16 0450 11/28/16 0450 Results 24 hrs Laboratory Tests Test 11/27/16 12:54 11/27/16 17:58 11/28/16 00:58 11/28/16 04:50 Bedside Glucose 132 91 143 White Blood Count 6.2 # Red Blood Count 2.94 L Hemoglobin 8.6 L Hematocrit 26.2 L Mean Corpuscular Volume 89.1 Mean Corpuscular Hemoglobin 29.3 Mean Corpuscular Hemoglobin Concent 32.8 Red Cell Distribution Width 17.2 H Platelet Count 119 #L Mean Platelet Volume 12.0 H Neutrophils % 89.1 H Lymphocytes % 8.0 L Monocytes % 2.1 Eosinophils % 0.0 Basophils % 0.2 Nucleated Red Blood Cells % 0.0 Neutrophils # 5.5 Lymphocytes # 0.5 L Monocytes # 0.1 L Eosinophils # 0.0 Basophils # 0.0 Nucleated Red Blood Cells # 0.0 Sodium Level 143 Potassium Level 4.4 Chloride Level 110 Carbon Dioxide Level 28 Anion Gap 9 Blood Urea Nitrogen 28 H Creatinine 0.41 L Glucose Level 106 # Calcium Level 8.2 L Phosphorus Level 3.7 Magnesium Level 2.3 Test 11/28/16 05:43 Bedside Glucose 112 Medications Medications Current Medications Ondansetron HCl 4 mg 4 mg Q4H PRN IV NAUSEA AND/OR VOMITING Last administered on 11/25/16 22:15; Admin Dose 4 MG; Start 10/17/16 at 19:00 Total Parenteral Nutrition (Tpn) 1,000 ml @ 100 mls/hr Q10H IV Last administered on 11/28/16 07:41; Admin Dose 100 MLS/HR; Start 10/19/16 at 18:30 Fentanyl (Duragesic 12 Mcg/Hr Patch) 1 patch Q72H TRANSDERM Last administered on 11/27/16 20:24; Admin Dose 1 PATCH; Start 10/19/16 at 18:30 Hydromorphone HCl (Dilaudid) 1 mg Q4H PRN IV BREAKTHROUGH PAIN Last administered on 11/26/16 17:55; Admin Dose 1 MG; Start 10/19/16 at 23:00 Lorazepam (Ativan) 0.5 mg Q8H PRN IV anxiety, insomnia Last administered on 15:24; Admin Dose 0.5 MG; Start 10/21/16 at 18:00 Metoclopramide HCl (Reglan) 5 mg Q6 IV Last administered on 11/28/16 05:31; Admin Dose 5 MG; Start 10/23/16 at 00:00 Enalaprilat (Vasotec Iv) 0.625 mg Q4H PRN IV ELEVATED BLOOD PRESSURE Last administered on 11/07/16 13:38; Admin Dose 0.625 MG; Start 10/29/16 at 10:00 Clonidine HCl (Catapres-Tts 2 Patch) 1 patch Q7D TRANSDERM Last administered on 11/24/16 17:44; Admin Dose 1 PATCH; Start 11/03/16 at 18:30 Lidocaine 15 ml 15 ml QID PRN PO SORE THROAT Last administered on 11/10/16 12: 53; Admin Dose 15 ML; Start 11/08/16 at 14:00 Acetaminophen (Ofirmev 1000mg/ 100ml Iv) 100 ml @ 400 mls/hr Q6H PRN IVPB FEVER Last administered on 11/22/16 06:55; Admin Dose 400 MLS/HR; Start at 16:00 Pantoprazole (Protonix Iv) 40 mg BID@06,18 IV Last administered on 11/28/16 05: 31; Admin Dose 40 MG; Start 11/11/16 at 06:00 Lidocaine 15 ml 15 ml QID PO Last administered on 11/25/16 09:12; Admin Dose 15 ML; Start 11/25/16 at 09:00; Stop 11/30/16 at 09:00 Paclitaxel/Sodium Chloride (taxOL/NS) 263.8333 ml @ 88.333 m... Q7D IV Last administered on 11/25/16 23:20; Admin Dose 88.333 MLS/HR; Start 11/25/16 at 21: 00 Diphenhydramine HCl (Benadryl) 50 mg Q7D IV Last administered on 11/25/16 22: 15; Admin Dose 50 MG; Start 11/25/16 at 20:00 Famotidine 20 mg 20 mg Q7D IV Last administered on 11/25/16 22:15; Admin Dose 20 MG; Start 11/25/16 at 20:00 Dexamethasone/ Dextrose (Decadron/D5W) 55 ml @ 252 mls/hr Q7D IV Last administered on 11/25/16 22:15; Admin Dose 252 MLS/HR; Start 11/25/16 at 20:00 Insulin Aspart (Novolog Insulin Pen) NOVOLOG *MILD* ALGORI... Q6 SC ; Start 11/26 at 00:00 Miscellaneous Information 1 ea NOTE XX ; Start 11/25/16 at 22:00 Glucose (Glutose) 15 gm Q15M PRN PO DECREASED GLUCOSE; Start 11/25/16 at 22:00 Glucose (Glutose) 22.5 gm Q15M PRN PO DECREASED GLUCOSE; Start 11/25/16 at 22: 00 Dextrose (D50w Syringe) 25 ml Q15M PRN IV DECREASED GLUCOSE; Start 11/25/16 at 22:00 Dextrose (D50w Syringe) 50 ml Q15M PRN IV DECREASED GLUCOSE; Start 11/25/16 at 22:00 Glucagon (Glucagen) 1 mg Q15M PRN IM DECREASED GLUCOSE; Start 11/25/16 at 22:00 Glucose (Glutose) 15 gm Q15M PRN BUCCAL DECREASED GLUCOSE; Start 11/25/16 at 22 :00 Miscellaneous Information MEDICATION REQUIRES CLARIFICATI... Q8H XX ; Start 11/26/16 at 17:00 Piperacillin Sod/ Tazobactam Sod (Zosyn 3.375gm/ 100 ml (Pmx)) 100 ml @ 200 mls /hr Q8 IVPB Last administered on 11/28/16 05:31; Admin Dose 200 MLS/HR; Start 11/27/16 at 14:00 Miscellaneous Information VANCO TR LEVEL PRIOR... ONCE ONCE XX ; Start 11/28/16 at 14:00; Stop 11/28/16 at 14:01 Vancomycin HCl/ Sodium Chloride (Vancocin/NS) 150 ml @ 75 mls/hr Q8H IVPB Last administered on 11/28/16 06:23; Admin Dose 75 MLS/HR; Start 11/27/16 at 23: 00 CHACHA LEDESMA MD Nov 28, 2016 10:23
[2016-11-28 14:00] VITALS: BP 140/70; PULSE 78; RESP 18
--- NOTE | 2016-11-28 14:14 | CONS ---
Date/Time of Note Date/Time of Note DATE: 11/28/16 TIME: 14:12 Assessment/Plan Assessment/Plan Chief Complaint/Hosp Course SUBJECTIVE: The patient is sleeping. No fevers per report. NG tube to suction. DIAGNOSTICS: Repeat CT of the abdomen and pelvis revealed multiloculated fluid collection, which has not changed significantly in size compared to prior examination. INDWELLINGS: Right chest Port-A-Cath, NG tube. ANTIMICROBIALS: Vanco Zosyn Diflucan. PHYSICAL EXAMINATION: GENERAL: This is a cachectic elderly woman, who is in no distress. HEENT: Head atraumatic, normocephalic. Sclerae anicteric. Buccal mucosa dry. NECK: Supple. Trachea midline. CHEST: Rise symmetrical. Breath sounds diminished. HEART: S1, S2. ABDOMEN: Soft, bowel sounds present. EXTREMITIES: Without cyanosis. ASSESSMENT: 1. Bowel obstruction secondary to metastatic gastric carcinoma and abdominal carcinomatosis. 2. Persistent loculated intra-abdominal fluid collection, without any significant change per repeat CT of the abdomen. 3. Cachexia. 4. Status post streptococcal bacteremia, treated. PLAN: Remains unchanged. Continue present care, possible tx to [facility]. Follow oncology recommendations. DW staff Problems: Consultation Date/Type/Reason Admit Date/Time Oct 16, 2016 at 08:57 Type of Consultation: ID Referring Provider: KOBY FRANCO MD Exam/Review of Systems Vital Signs Vitals Vital Signs Date Time Temp Pulse Resp B/P Pulse Ox O2 Delivery O2 Flow Rate FiO2 11/28/16 08:58 98.1 97 18 175/79 98 Intake and Output 11/27/16 11/27/16 11/28/16 15:00 23:00 07:00 Intake Total 225 ml 1410 ml 1220 ml Output Total 980 ml 600 ml Balance 225 ml 430 ml 620 ml Results Result Diagram: 11/28/16 0450 11/28/16 0450 Results 24 hrs Laboratory Tests Test 11/27/16 17:58 11/28/16 00:58 11/28/16 04:50 11/28/16 05:43 Bedside Glucose 91 143 112 White Blood Count 6.2 # Red Blood Count 2.94 L Hemoglobin 8.6 L Hematocrit 26.2 L Mean Corpuscular Volume 89.1 Mean Corpuscular Hemoglobin 29.3 Mean Corpuscular Hemoglobin Concent 32.8 Red Cell Distribution Width 17.2 H Platelet Count 119 #L Mean Platelet Volume 12.0 H Neutrophils % 89.1 H Lymphocytes % 8.0 L Monocytes % 2.1 Eosinophils % 0.0 Basophils % 0.2 Nucleated Red Blood Cells % 0.0 Neutrophils # 5.5 Lymphocytes # 0.5 L Monocytes # 0.1 L Eosinophils # 0.0 Basophils # 0.0 Nucleated Red Blood Cells # 0.0 Sodium Level 143 Potassium Level 4.4 Chloride Level 110 Carbon Dioxide Level 28 Anion Gap 9 Blood Urea Nitrogen 28 H Creatinine 0.41 L Glucose Level 106 # Calcium Level 8.2 L Phosphorus Level 3.7 Magnesium Level 2.3 Test 11/28/16 12:00 Bedside Glucose 129 Medications Medications Current Medications Ondansetron HCl 4 mg 4 mg Q4H PRN IV NAUSEA AND/OR VOMITING Last administered on 11/25/16 22:15; Admin Dose 4 MG; Start 10/17/16 at 19:00 Total Parenteral Nutrition (Tpn) 1,000 ml @ 100 mls/hr Q10H IV Last administered on 11/28/16 07:41; Admin Dose 100 MLS/HR; Start 10/19/16 at 18:30 Fentanyl (Duragesic 12 Mcg/Hr Patch) 1 patch Q72H TRANSDERM Last administered on 11/27/16 20:24; Admin Dose 1 PATCH; Start 10/19/16 at 18:30 Hydromorphone HCl (Dilaudid) 1 mg Q4H PRN IV BREAKTHROUGH PAIN Last administered on 11/26/16 17:55; Admin Dose 1 MG; Start 10/19/16 at 23:00 Lorazepam (Ativan) 0.5 mg Q8H PRN IV anxiety, insomnia Last administered on 15:24; Admin Dose 0.5 MG; Start 10/21/16 at 18:00 Metoclopramide HCl (Reglan) 5 mg Q6 IV Last administered on 11/28/16 11:57; Admin Dose 5 MG; Start 10/23/16 at 00:00 Enalaprilat (Vasotec Iv) 0.625 mg Q4H PRN IV ELEVATED BLOOD PRESSURE Last administered on 11/07/16 13:38; Admin Dose 0.625 MG; Start 10/29/16 at 10:00 Clonidine HCl (Catapres-Tts 2 Patch) 1 patch Q7D TRANSDERM Last administered on 11/24/16 17:44; Admin Dose 1 PATCH; Start 11/03/16 at 18:30 Lidocaine 15 ml 15 ml QID PRN PO SORE THROAT Last administered on 11/10/16 12: 53; Admin Dose 15 ML; Start 11/08/16 at 14:00 Acetaminophen (Ofirmev 1000mg/ 100ml Iv) 100 ml @ 400 mls/hr Q6H PRN IVPB FEVER Last administered on 11/22/16 06:55; Admin Dose 400 MLS/HR; Start at 16:00 Pantoprazole (Protonix Iv) 40 mg BID@06,18 IV Last administered on 11/28/16 05: 31; Admin Dose 40 MG; Start 11/11/16 at 06:00 Lidocaine 15 ml 15 ml QID PO Last administered on 11/25/16 09:12; Admin Dose 15 ML; Start 11/25/16 at 09:00; Stop 11/30/16 at 09:00 Paclitaxel/Sodium Chloride (taxOL/NS) 263.8333 ml @ 88.333 m... Q7D IV Last administered on 11/25/16 23:20; Admin Dose 88.333 MLS/HR; Start 11/25/16 at 21: 00 Diphenhydramine HCl (Benadryl) 50 mg Q7D IV Last administered on 11/25/16 22: 15; Admin Dose 50 MG; Start 11/25/16 at 20:00 Famotidine 20 mg 20 mg Q7D IV Last administered on 11/25/16 22:15; Admin Dose 20 MG; Start 11/25/16 at 20:00 Dexamethasone/ Dextrose (Decadron/D5W) 55 ml @ 252 mls/hr Q7D IV Last administered on 11/25/16 22:15; Admin Dose 252 MLS/HR; Start 11/25/16 at 20:00 Insulin Aspart (Novolog Insulin Pen) NOVOLOG *MILD* ALGORI... Q6 SC ; Start 11/26 at 00:00 Miscellaneous Information 1 ea NOTE XX ; Start 11/25/16 at 22:00 Glucose (Glutose) 15 gm Q15M PRN PO DECREASED GLUCOSE; Start 11/25/16 at 22:00 Glucose (Glutose) 22.5 gm Q15M PRN PO DECREASED GLUCOSE; Start 11/25/16 at 22: 00 Dextrose (D50w Syringe) 25 ml Q15M PRN IV DECREASED GLUCOSE; Start 11/25/16 at 22:00 Dextrose (D50w Syringe) 50 ml Q15M PRN IV DECREASED GLUCOSE; Start 11/25/16 at 22:00 Glucagon (Glucagen) 1 mg Q15M PRN IM DECREASED GLUCOSE; Start 11/25/16 at 22:00 Glucose (Glutose) 15 gm Q15M PRN BUCCAL DECREASED GLUCOSE; Start 11/25/16 at 22 :00 Miscellaneous Information MEDICATION REQUIRES CLARIFICATI... Q8H XX ; Start 11/26/16 at 17:00 Piperacillin Sod/ Tazobactam Sod 100 ml @ 200 mls/hr Q8 IVPB Last administered on 11/28/16 13:49; Admin Dose 200 MLS/HR; Start 11/27/16 at 14:00 Vancomycin HCl/ Sodium Chloride (Vancocin/NS) 150 ml @ 75 mls/hr Q8H IVPB Last administered on 11/28/16 06:23; Admin Dose 75 MLS/HR; Start 11/27/16 at 23: 00 KJ HUYNH NP Nov 28, 2016 14:14
[2016-11-28] MEDS ORDERED: VANCOMYCIN 750 MG in SOD CHLORIDE 0.9% 150 ML IVPB SCH (14:30)
[2016-11-28] MEDS: HYDROmorphONE 1 MG/ML SYG IV PRN (16:06)
[2016-11-28] MEDS: FLUCONAZOLE 100 MG/NS (PMX) 50 ML IVPB SCH (18:04)
[2016-11-28 19:00] VITALS: BP 164/75; RESP 16
[2016-11-28] MEDS: VANCOMYCIN 1 GM in NS 250 ML IVPB SCH (22:37)
[2016-11-29] MEDS: METOCLOPRAMIDE 10 MG INJ IV SCH ×4 (00:32→18:11)
[2016-11-29] MEDS: [UNRECOGNIZED DRUG - REMARK] XX SCH ×3 (01:00→17:00)
--- NOTE | 2016-11-29 03:10 | PN ---
DATE: 11/28/2016 SUBJECTIVE: Patient is awake and alert. She has an NG tube which is draining some bloody fluid. S he does not complain of pain. OBJECTIVE: HEART: Normal sinus rhythm with grade III/ systolic murmur. The patient states that she did have an echocardiogram in the past and states that it did not show anything of any great significance, b ut this is rather doubtful ad may need repeating. CHEST: Clear to A and P. ABDOMEN: Appears to be a firm. No tenderness. Liver, kidneys, spleen are not able to be palpated. No ankle edema. The patient has left lower quadrant colostomy. VITAL SIGNS: Temperature 100.5, pulse 98, respiratory rate 16, blood pressure 164/75. INTAKE AND OUTPUT: Intake 2855 mL, output 1580 mL. LABORATORY DATA: White blood cell count 6200, hemoglobin 8.6, hematocrit 26.2%, platelet count is l ow at 119,000. Sodium 143, potassium 4.4, chloride 110, carbon dioxide 28, BUN 28, creatinine 0.41, glucose 106, calcium 8.2, uncorrected. Vancomycin trough 8. Blood culture showed no growth on 3 d eterminations. Abdominal and pelvic CAT scan revealed multiloculated fluid collection, significantl y dilated Lydia-en-Y loop of duodenum, small left pleural effusion, trace right pleural effusion, dif fuse anasarca which has mildly decreased, left lower quadrant stoma again seen and is unchanged. Dictated By: PATRICIA PRECIADO/OH Conf#: [id number] DID#: [id number]
[2016-11-29] MEDS: TPN 1,000 ML IV SCH ×3 (04:29→16:24)
[2016-11-29 05:19] LABS: ADD SCAN DIFF NO
[2016-11-29 05:27] LABS: ABNORMAL IP MESSAGE 1; BASOPHILS % 0.2 % (0.0-2.0); HEMATOCRIT 22.3 % (37.0-47.0); HEMOGLOBIN 7.3 g/dl (12.0-16.0); LYMPHOCYTES # 0.4 10^3/ul (0.8-2.9); LYMPHOCYTES % 8.8 % (15.0-51.0); MEAN CORPUSCULAR HEMOGLOBIN 28.5 pg (29.0-33.0); MEAN CORPUSCULAR HGB CONC 32.7 g/dl (32.0-37.0); MEAN CORPUSCULAR VOLUME 87.1 fl (82.0-101.0); MEAN PLATELET VOLUME 13.1 fl (7.4-10.4); MONOCYTE # 0.1 10^3/ul (0.3-0.9); MONOCYTES % 1.5 % (0.0-11.0); NEUTROPHIL # 4.1 10^3/ul (1.6-7.5); NEUTROPHILS % 88.9 % (39.0-77.0); PLATELET COUNT 92 10^3/UL (140-415); RED BLOOD COUNT 2.56 10^6/ul (4.20-5.40); WHITE BLOOD COUNT 4.6 10^3/ul (4.8-10.8)
[2016-11-29] MEDS: PANTOPRAZOLE 40 MG INJ IV SCH ×2 (05:35→18:11)
[2016-11-29] MEDS: PIPER-TAZO 3.375 GM IV (PMX) 100 ML IVPB SCH ×2 (05:35→14:33)
[2016-11-29] MEDS: INSULIN ASPART [NOVOLOG] 3 ML PEN SC SCH ×4 (06:00→18:00)
[2016-11-29 06:02] LABS: CALCIUM 7.8 mg/dl (8.4-10.2); CREATININE 0.35 mg/dl (0.44-1.00); MAGNESIUM 2.1 mg/dl (1.7-2.5); PHOSPHORUS 3.4 mg/dl (2.5-4.9); POTASSIUM 3.4 mmol/L (3.5-5.1)
[2016-11-29] MEDS: VANCOMYCIN 1 GM in NS 250 ML IVPB SCH ×2 (06:36→17:25)
[2016-11-29 07:44] VITALS: BP 148/70; RESP 19
[2016-11-29] MEDS: LIDOCAINE 2% VISC 15 ML CUP PO SCH ×4 (09:00→20:57)
--- NOTE | 2016-11-29 10:55 | PN ---
Date/Time of Note Date/Time of Note DATE: 11/29/16 TIME: 10:53 Assessment/Plan VTE Prophylaxis VTE Prophylaxis Intervention: anti-embolic stocking Lines/Catheters IV [facility] Portacath Urinary Cath still in place: No Assessment/Plan Assessment/Plan Hgb down to 7.3. One unit RBC to be given. She will talk to Dr. Henderson about whether further chemotherapy is worthwhile. Subjective 24 Hr Interval Summary Free Text/Dictation Pt stable. No new issues. Exam/Review of Systems Vital Signs Vitals Vital Signs Date Time Temp Pulse Resp B/P Pulse Ox O2 Delivery O2 Flow Rate FiO2 11/29/16 07:44 99.0 94 19 148/70 98 11/28/16 14:00 Room Air Intake and Output 11/28/16 11/28/16 11/29/16 15:00 23:00 07:00 Intake Total 400 ml 1400 ml 1540 ml Output Total 1200 ml 500 ml Balance 400 ml 200 ml 1040 ml Exam Constitutional: alert, oriented Head: normocephalic ENMT: other (ng tube in place) Respiratory: clear to auscultation Cardiovascular: regular rate and rhythm Results Result Diagram: 11/29/16 0425 11/29/16 0425 Results 24 hrs Laboratory Tests Test 11/28/16 12:00 11/28/16 13:46 11/28/16 18:09 11/29/16 00:36 Bedside Glucose 129 114 127 Vancomycin Level Trough 8.0 L Test 11/29/16 04:25 11/29/16 06:15 11/29/16 09:18 White Blood Count 4.6 #L Red Blood Count 2.56 L Hemoglobin 7.3 L Hematocrit 22.3 L Mean Corpuscular Volume 87.1 Mean Corpuscular Hemoglobin 28.5 L Mean Corpuscular Hemoglobin Concent 32.7 Red Cell Distribution Width 17.0 H Platelet Count 92 #L Mean Platelet Volume 13.1 H Neutrophils % 88.9 H Lymphocytes % 8.8 L Monocytes % 1.5 Eosinophils % 0.0 Basophils % 0.2 Nucleated Red Blood Cells % 0.0 Neutrophils # 4.1 Lymphocytes # 0.4 L Monocytes # 0.1 L Eosinophils # 0.0 Basophils # 0.0 Nucleated Red Blood Cells # 0.0 Sodium Level 141 Potassium Level 3.4 L Chloride Level 104 Carbon Dioxide Level 28 Anion Gap 12 Blood Urea Nitrogen 20 Creatinine 0.35 L Glucose Level 101 Calcium Level 7.8 L Phosphorus Level 3.4 Magnesium Level 2.1 Bedside Glucose 152 139 Medications Medications Current Medications Ondansetron HCl 4 mg 4 mg Q4H PRN IV NAUSEA AND/OR VOMITING Last administered on 11/25/16 22:15; Admin Dose 4 MG; Start 10/17/16 at 19:00 Total Parenteral Nutrition (Tpn) 1,000 ml @ 100 mls/hr Q10H IV Last administered on 11/29/16 04:29; Admin Dose 100 MLS/HR; Start 10/19/16 at 18:30 Fentanyl (Duragesic 12 Mcg/Hr Patch) 1 patch Q72H TRANSDERM Last administered on 11/27/16 20:24; Admin Dose 1 PATCH; Start 10/19/16 at 18:30 Hydromorphone HCl (Dilaudid) 1 mg Q4H PRN IV BREAKTHROUGH PAIN Last administered on 11/28/16 16:06; Admin Dose 1 MG; Start 10/19/16 at 23:00 Lorazepam (Ativan) 0.5 mg Q8H PRN IV anxiety, insomnia Last administered on 15:24; Admin Dose 0.5 MG; Start 10/21/16 at 18:00 Metoclopramide HCl (Reglan) 5 mg Q6 IV Last administered on 11/29/16 05:35; Admin Dose 5 MG; Start 10/23/16 at 00:00 Enalaprilat (Vasotec Iv) 0.625 mg Q4H PRN IV ELEVATED BLOOD PRESSURE Last administered on 11/07/16 13:38; Admin Dose 0.625 MG; Start 10/29/16 at 10:00 Clonidine HCl (Catapres-Tts 2 Patch) 1 patch Q7D TRANSDERM Last administered on 11/24/16 17:44; Admin Dose 1 PATCH; Start 11/03/16 at 18:30 Lidocaine 15 ml 15 ml QID PRN PO SORE THROAT Last administered on 11/10/16 12: 53; Admin Dose 15 ML; Start 11/08/16 at 14:00 Acetaminophen (Ofirmev 1000mg/ 100ml Iv) 100 ml @ 400 mls/hr Q6H PRN IVPB FEVER Last administered on 11/22/16 06:55; Admin Dose 400 MLS/HR; Start at 16:00 Pantoprazole (Protonix Iv) 40 mg BID@06,18 IV Last administered on 11/29/16 05: 35; Admin Dose 40 MG; Start 11/11/16 at 06:00 Lidocaine 15 ml 15 ml QID PO Last administered on 11/25/16 09:12; Admin Dose 15 ML; Start 11/25/16 at 09:00; Stop 11/30/16 at 09:00 Paclitaxel/Sodium Chloride (taxOL/NS) 263.8333 ml @ 88.333 m... Q7D IV Last administered on 11/25/16 23:20; Admin Dose 88.333 MLS/HR; Start 11/25/16 at 21: 00 Diphenhydramine HCl (Benadryl) 50 mg Q7D IV Last administered on 11/25/16 22: 15; Admin Dose 50 MG; Start 11/25/16 at 20:00 Famotidine 20 mg 20 mg Q7D IV Last administered on 11/25/16 22:15; Admin Dose 20 MG; Start 11/25/16 at 20:00 Dexamethasone/ Dextrose (Decadron/D5W) 55 ml @ 252 mls/hr Q7D IV Last administered on 11/25/16 22:15; Admin Dose 252 MLS/HR; Start 11/25/16 at 20:00 Insulin Aspart (Novolog Insulin Pen) NOVOLOG *MILD* ALGORI... Q6 SC ; Start 11/26 at 00:00 Miscellaneous Information 1 ea NOTE XX ; Start 11/25/16 at 22:00 Glucose (Glutose) 15 gm Q15M PRN PO DECREASED GLUCOSE; Start 11/25/16 at 22:00 Glucose (Glutose) 22.5 gm Q15M PRN PO DECREASED GLUCOSE; Start 11/25/16 at 22: 00 Dextrose (D50w Syringe) 25 ml Q15M PRN IV DECREASED GLUCOSE; Start 11/25/16 at 22:00 Dextrose (D50w Syringe) 50 ml Q15M PRN IV DECREASED GLUCOSE; Start 11/25/16 at 22:00 Glucagon (Glucagen) 1 mg Q15M PRN IM DECREASED GLUCOSE; Start 11/25/16 at 22:00 Glucose (Glutose) 15 gm Q15M PRN BUCCAL DECREASED GLUCOSE; Start 11/25/16 at 22 :00 Miscellaneous Information MEDICATION REQUIRES CLARIFICATI... Q8H XX ; Start 11/26/16 at 17:00 Piperacillin Sod/ Tazobactam Sod 100 ml @ 200 mls/hr Q8 IVPB Last administered on 11/29/16 05:35; Admin Dose 200 MLS/HR; Start 11/27/16 at 14:00 Fluconazole/ Sodium Chloride 50 ml @ 50 mls/hr Q24H IVPB Last administered on 18:04; Admin Dose 50 MLS/HR; Start 11/28/16 at 15:30 Vancomycin HCl (Vancocin) 250 ml @ 125 mls/hr Q8H IVPB Last administered on 06:36; Admin Dose 125 MLS/HR; Start 11/28/16 at 23:00 CHACHA LEDESMA MD Nov 29, 2016 10:55
--- NOTE | 2016-11-29 14:24 | CONS ---
Date/Time of Note Date/Time of Note DATE: 11/29/16 TIME: 14:23 Assessment/Plan Assessment/Plan Chief Complaint/Hosp Course SUBJECTIVE: Low grade fevers, very weak and depressed, NG tube to suction. DIAGNOSTICS: Repeat CT of the abdomen and pelvis revealed multiloculated fluid collection, which has not changed significantly in size compared to prior examination. INDWELLINGS: Right chest Port-A-Cath, NG tube. ANTIMICROBIALS: Vanco Zosyn Diflucan. PHYSICAL EXAMINATION: GENERAL: This is a cachectic elderly woman, who is in no distress. HEENT: Head atraumatic, normocephalic. Sclerae anicteric. Buccal mucosa dry. NECK: Supple. Trachea midline. CHEST: Rise symmetrical. Breath sounds diminished. HEART: S1, S2. ABDOMEN: Soft, bowel sounds present. EXTREMITIES: Without cyanosis. ASSESSMENT: 1. Bowel obstruction secondary to metastatic gastric carcinoma and abdominal carcinomatosis. 2. Persistent loculated intra-abdominal fluid collection, without any significant change per repeat CT of the abdomen. 3. Cachexia. 4. Status post streptococcal bacteremia, treated. PLAN: Remains unchanged. Continue abx, repeat bld cx prn, follow oncology recommendations. DW staff Problems: Consultation Date/Type/Reason Admit Date/Time Oct 16, 2016 at 08:57 Type of Consultation: ID Referring Provider: KOBY FRANCO MD Exam/Review of Systems Vital Signs Vitals Vital Signs Date Time Temp Pulse Resp B/P Pulse Ox O2 Delivery O2 Flow Rate FiO2 11/29/16 07:44 99.0 94 19 148/70 98 11/28/16 14:00 Room Air Intake and Output 11/28/16 11/28/16 11/29/16 15:00 23:00 07:00 Intake Total 400 ml 1400 ml 1540 ml Output Total 1200 ml 500 ml Balance 400 ml 200 ml 1040 ml Results Result Diagram: 11/29/16 0425 11/29/16 0425 Results 24 hrs Laboratory Tests Test 11/28/16 18:09 11/29/16 00:36 11/29/16 04:25 11/29/16 06:15 Bedside Glucose 114 127 152 White Blood Count 4.6 #L Red Blood Count 2.56 L Hemoglobin 7.3 L Hematocrit 22.3 L Mean Corpuscular Volume 87.1 Mean Corpuscular Hemoglobin 28.5 L Mean Corpuscular Hemoglobin Concent 32.7 Red Cell Distribution Width 17.0 H Platelet Count 92 #L Mean Platelet Volume 13.1 H Neutrophils % 88.9 H Lymphocytes % 8.8 L Monocytes % 1.5 Eosinophils % 0.0 Basophils % 0.2 Nucleated Red Blood Cells % 0.0 Neutrophils # 4.1 Lymphocytes # 0.4 L Monocytes # 0.1 L Eosinophils # 0.0 Basophils # 0.0 Nucleated Red Blood Cells # 0.0 Sodium Level 141 Potassium Level 3.4 L Chloride Level 104 Carbon Dioxide Level 28 Anion Gap 12 Blood Urea Nitrogen 20 Creatinine 0.35 L Glucose Level 101 Calcium Level 7.8 L Phosphorus Level 3.4 Magnesium Level 2.1 Test 11/29/16 09:18 11/29/16 12:25 Bedside Glucose 139 117 Medications Medications Current Medications Ondansetron HCl 4 mg 4 mg Q4H PRN IV NAUSEA AND/OR VOMITING Last administered on 11/25/16 22:15; Admin Dose 4 MG; Start 10/17/16 at 19:00 Total Parenteral Nutrition (Tpn) 1,000 ml @ 100 mls/hr Q10H IV Last administered on 11/29/16 04:29; Admin Dose 100 MLS/HR; Start 10/19/16 at 18:30 Fentanyl (Duragesic 12 Mcg/Hr Patch) 1 patch Q72H TRANSDERM Last administered on 11/27/16 20:24; Admin Dose 1 PATCH; Start 10/19/16 at 18:30 Hydromorphone HCl (Dilaudid) 1 mg Q4H PRN IV BREAKTHROUGH PAIN Last administered on 11/28/16 16:06; Admin Dose 1 MG; Start 10/19/16 at 23:00 Lorazepam (Ativan) 0.5 mg Q8H PRN IV anxiety, insomnia Last administered on 15:24; Admin Dose 0.5 MG; Start 10/21/16 at 18:00 Metoclopramide HCl (Reglan) 5 mg Q6 IV Last administered on 11/29/16 12:20; Admin Dose 5 MG; Start 10/23/16 at 00:00 Enalaprilat (Vasotec Iv) 0.625 mg Q4H PRN IV ELEVATED BLOOD PRESSURE Last administered on 11/07/16 13:38; Admin Dose 0.625 MG; Start 10/29/16 at 10:00 Clonidine HCl (Catapres-Tts 2 Patch) 1 patch Q7D TRANSDERM Last administered on 11/24/16 17:44; Admin Dose 1 PATCH; Start 11/03/16 at 18:30 Lidocaine 15 ml 15 ml QID PRN PO SORE THROAT Last administered on 11/10/16 12: 53; Admin Dose 15 ML; Start 11/08/16 at 14:00 Acetaminophen (Ofirmev 1000mg/ 100ml Iv) 100 ml @ 400 mls/hr Q6H PRN IVPB FEVER Last administered on 11/22/16 06:55; Admin Dose 400 MLS/HR; Start at 16:00 Pantoprazole (Protonix Iv) 40 mg BID@06,18 IV Last administered on 11/29/16 05: 35; Admin Dose 40 MG; Start 11/11/16 at 06:00 Lidocaine 15 ml 15 ml QID PO Last administered on 11/25/16 09:12; Admin Dose 15 ML; Start 11/25/16 at 09:00; Stop 11/30/16 at 09:00 Paclitaxel/Sodium Chloride (taxOL/NS) 263.8333 ml @ 88.333 m... Q7D IV Last administered on 11/25/16 23:20; Admin Dose 88.333 MLS/HR; Start 11/25/16 at 21: 00 Diphenhydramine HCl (Benadryl) 50 mg Q7D IV Last administered on 11/25/16 22: 15; Admin Dose 50 MG; Start 11/25/16 at 20:00 Famotidine 20 mg 20 mg Q7D IV Last administered on 11/25/16 22:15; Admin Dose 20 MG; Start 11/25/16 at 20:00 Dexamethasone/ Dextrose (Decadron/D5W) 55 ml @ 252 mls/hr Q7D IV Last administered on 11/25/16 22:15; Admin Dose 252 MLS/HR; Start 11/25/16 at 20:00 Insulin Aspart (Novolog Insulin Pen) NOVOLOG *MILD* ALGORI... Q6 SC ; Start 11/26 at 00:00 Miscellaneous Information 1 ea NOTE XX ; Start 11/25/16 at 22:00 Glucose (Glutose) 15 gm Q15M PRN PO DECREASED GLUCOSE; Start 11/25/16 at 22:00 Glucose (Glutose) 22.5 gm Q15M PRN PO DECREASED GLUCOSE; Start 11/25/16 at 22: 00 Dextrose (D50w Syringe) 25 ml Q15M PRN IV DECREASED GLUCOSE; Start 11/25/16 at 22:00 Dextrose (D50w Syringe) 50 ml Q15M PRN IV DECREASED GLUCOSE; Start 11/25/16 at 22:00 Glucagon (Glucagen) 1 mg Q15M PRN IM DECREASED GLUCOSE; Start 11/25/16 at 22:00 Glucose (Glutose) 15 gm Q15M PRN BUCCAL DECREASED GLUCOSE; Start 11/25/16 at 22 :00 Miscellaneous Information MEDICATION REQUIRES CLARIFICATI... Q8H XX ; Start 11/26/16 at 17:00 Piperacillin Sod/ Tazobactam Sod 100 ml @ 200 mls/hr Q8 IVPB Last administered on 11/29/16 05:35; Admin Dose 200 MLS/HR; Start 11/27/16 at 14:00 Fluconazole/ Sodium Chloride 50 ml @ 50 mls/hr Q24H IVPB Last administered on 18:04; Admin Dose 50 MLS/HR; Start 11/28/16 at 15:30 Vancomycin HCl (Vancocin) 250 ml @ 125 mls/hr Q8H IVPB Last administered on 06:36; Admin Dose 125 MLS/HR; Start 11/28/16 at 23:00 Miscellaneous Information (*Rx Drug Level Order Reminder*) VANCOMYCIN TROUGH LEVEL... ONCE ONCE XX ; Start 11/30/16 at 06:00; Stop 11/30/16 at 06:01 KJ HUYNH NP Nov 29, 2016 14:24
[2016-11-29] MEDS: FLUCONAZOLE 100 MG/NS (PMX) 50 ML IVPB SCH (16:21)
[2016-11-29 18:57] VITALS: BP 151/70; RESP 16
--- NOTE | 2016-11-29 19:52 | PN ---
DATE: 11/29/2016 PHYSICAL EXAMINATION GENERAL: Patient awake and alert. She has an NG tube in which is draining some bloody fluid. The patient complains of no pain. HEART: Rate III/ systolic murmur, normal sinus rhythm. CHEST: Clear to A and P. ABDOMEN: Feels rather solid with questionable hepatomegaly. Bowel sounds are present, but decrease d. Abdomen is also slightly distended. EXTREMITIES: No ankle edema. DIAGNOSTIC DATA: Hemoglobin is down to 7.3. The patient to have 1 unit of packed red blood cells g iven by Dr. Nuno, her health safety instructor and there will be a discussion whether further chemotherapy is worthwhile with this patient, considering her condition. Repeat CT of the abdomen and pelvis rev ealed multiloculated fluid collections which have not changed significantly in size compared to prio r examination. She is felt to have a bowel obstruction secondary to metastatic gastric carcinoma an d abdominal carcinomatosis. Temperature is 99.3, blood pressure is 151/70, pulse is 86 per minute a nd regular. White count 4600 white blood cells, hemoglobin 7.3, hematocrit 22.3%, platelet count de creased to 92,000. Glucose is 92. Vancomycin trough is 8. CONDITION: Stable, but poor. Dictated By: PATRICIA SCHAFFER MD WR/NTS Conf#: [id number] DID#: [id number] CC: KOBY FRANCO MD;*End*
[2016-11-29] MEDS ORDERED: ACETAMINOPHEN 1000MG/100ML IV 100 ML IVPB ONE (21:00)
[2016-11-29] MEDS ORDERED: DIPHENHYDRAMINE 50 MG INJ IV ONE (21:00)
[2016-11-29 21:25] VITALS: BP 150/70; PULSE 76; RESP 18
[2016-11-29 22:55] VITALS: BP 131/60; PULSE 65; RESP 20
[2016-11-30] VITALS: BP 130/69; PULSE 73; RESP 20
[2016-11-30] MEDS: [UNRECOGNIZED DRUG - REMARK] XX SCH ×3 (00:18→16:29)
[2016-11-30] MEDS: METOCLOPRAMIDE 10 MG INJ IV SCH ×5 (00:18→23:57)
[2016-11-30] MEDS: PIPER-TAZO 3.375 GM IV (PMX) 100 ML IVPB SCH ×4 (00:19→21:07)
[2016-11-30 01:00] VITALS: BP 128/64; PULSE 62; RESP 18
[2016-11-30] MEDS: VANCOMYCIN 1 GM in NS 250 ML IVPB SCH ×4 (01:01→18:11)
[2016-11-30] MEDS: TPN 1,000 ML IV SCH ×2 (03:24→16:29)
[2016-11-30 05:33] LABS: ABNORMAL IP MESSAGE 1; ADD SCAN DIFF NO; HEMATOCRIT 25.5 % (37.0-47.0); HEMOGLOBIN 8.6 g/dl (12.0-16.0); MEAN CORPUSCULAR HEMOGLOBIN 29.7 pg (29.0-33.0); MEAN CORPUSCULAR HGB CONC 33.7 g/dl (32.0-37.0); MEAN CORPUSCULAR VOLUME 87.9 fl (82.0-101.0); MEAN PLATELET VOLUME 12.6 fl (7.4-10.4); PLATELET COUNT 67 10^3/UL (140-415); RED CELL DISTRIBUTION WIDTH 15.9 % (11.5-14.5); WHITE BLOOD COUNT 1.8 10^3/ul (4.8-10.8)
[2016-11-30] MEDS: PANTOPRAZOLE 40 MG INJ IV SCH ×2 (05:37→18:11)
[2016-11-30] MEDS: INSULIN ASPART [NOVOLOG] 3 ML PEN SC SCH ×4 (05:44→18:00)
[2016-11-30 06:10] LABS: CALCIUM 7.5 mg/dl (8.4-10.2); CREATININE 0.44 mg/dl (0.44-1.00); POTASSIUM 3.6 mmol/L (3.5-5.1)
[2016-11-30] MEDS: LIDOCAINE 2% VISC 15 ML CUP PO SCH (07:54)
[2016-11-30] MEDS: ENALAPRILAT 1.25 MG INJ IV PRN (08:05)
[2016-11-30 08:39] VITALS: BP 174/73; RESP 18
[2016-11-30 09:30] VITALS: BP 140/62
[2016-11-30 11:02] LABS: EOSINOPHILS # 0.1 10^3/ul (0.0-0.5); LYMPHOCYTES # 0.3 10^3/ul (0.8-2.9); NEUTROPHIL # 0.8 10^3/ul (1.6-7.5)
[2016-11-30] MEDS: FLUCONAZOLE 100 MG/NS (PMX) 50 ML IVPB SCH (16:29)
[2016-11-30 19:00] VITALS: BP 143/70; RESP 16
[2016-11-30] MEDS: FENTAnyl PATCH 12 MCG/HR TRANSDERM SCH (20:09)
--- NOTE | 2016-11-30 20:43 | PN ---
DATE: 11/30/2016 SUBJECTIVE: The patient's main complaint now is of fatigue. She is not complaining of abdominal pa in, nausea or vomiting. OBJECTIVE: GENERAL: The patient is a well-developed, chronically ill-appearing female who is in no acute distr ess. VITAL SIGNS: Temperature 98.4, pulse 78 and regular, respirations 16, blood pressure 143/70, pulse oximetry 96%. SKIN: Pale. No ecchymosis, petechiae, rashes. HEENT: Normocephalic. No evidence of trauma. Pupils equal, round, react to light and accommodatio n. Sclerae are slightly icteric. Oral mucosa is moist without lesions. There is a nasogastric tub e in place in the left naris and connected to suction. NECK: Supple. No jugular venous distention or thyroid enlargement. CHEST: Clear to auscultation, percussion. No rhonchi, wheezes, rales or rubs except for decreased breath sounds in the bases. HEART: Regular sinus rhythm. No S3, S4 or murmurs. ABDOMEN: Firmer in the area surrounding the left-sided colostomy. There is some excrement in the c olostomy. Bowel sounds are active. EXTREMITIES: No clubbing, edema or cyanosis. No palpable cords or Homans sign. NEUROLOGIC: Normal. LABORATORY: White count 1800 with an absolute neutrophil count of 800, hemoglobin is 8.6, hematocri t 25.5 and platelet count 67,000. Sodium 139, potassium 3.6, BUN 22, creatinine 0.44. ASSESSMENT: 1. Gastric carcinoma with abdominal carcinomatosis. 2. Bowel obstruction secondary to #1. 3. Pancytopenia secondary to chemotherapy. I have had a discussion today with the patient and family. The patient states that she wishes to go on hospice. She wishes, however, this to be inpatient hosp ice here at [facility]. The patient and family understand that this would mean no further active intervention. The patient' s TPN would stop, and there would be no further blood transfusions. I have told the patient that I feel this is certainly a reasonable alternative and that I will order both a DNR as well as a hospice evaluation. Dictated By: RADHA RODRIGUES MD, SR/OH Conf#: [id number] [facility]#: [id number]
--- NOTE | 2016-11-30 20:44 | PN ---
DATE: 11/30/2016 SUBJECTIVE: The patient complains of marked fatigue today to the point that she is too tired to go on and would like to discuss hospice placement. OBJECTIVE: VITAL SIGNS: Temperature 98.4, blood pressure 143/70, pulse of 78, respiration rate 18, O2 saturation 96% on room air. HEENT: Pupils equally round, reactive to light. Anicteric sclerae. Left nasogastric tube. LUNGS: Clear to auscultation anteriorly. CARDIAC: II/ systolic murmur. Regular rate and rhythm. ABDOMEN: Active bowel sounds, soft, nondistended, nontender. Left ileostomy. EXTREMITIES: No clubbing, cyanosis, or edema. LABORATORY DATA: WBC 1.8, hemoglobin 8.6, hematocrit 25.5, platelet count 67, 000. Sodium 139, potassium 3.6, chloride 104, carbon dioxide 30, BUN 22, creatinine 0.0, glucose 118, calcium 7.5. ASSESSMENT AND PLAN: Fatigue may be partially related to anemia, leukopenia and thrombocytopenia which are due to the recent chemotherapy. Recommend the patient receive treatment to correct these low white cell and low red cells first and will plan on placing her on hospice afterwards if she still feels the same and if Dr. Henderson agrees with plan. Dictated By: KOBY FRANCO MD DP/NTS Conf#: [id number] DID#: [id number]
[2016-11-30 20:58] LABS: ALBUMIN 2.4 g/dl (3.3-4.9); BILIRUBIN,DIRECT 1.8 mg/dl (0.00-0.20); BILIRUBIN,INDIRECT 1.1 mg/dl (0-1.1); BILIRUBIN,TOTAL 2.9 mg/dl (0.2-1.3); TOTAL PROTEIN 4.9 g/dl (6.1-8.1)
[2016-12-01] MEDS: [UNRECOGNIZED DRUG - REMARK] XX SCH ×3 (00:02→16:18)
[2016-12-01] MEDS: VANCOMYCIN 1 GM in NS 250 ML IVPB SCH ×3 (02:00→16:18)
[2016-12-01] MEDS: TPN 1,000 ML IV SCH ×3 (03:12→21:14)
[2016-12-01] MEDS: PIPER-TAZO 3.375 GM IV (PMX) 100 ML IVPB SCH ×3 (05:06→21:42)
[2016-12-01] MEDS: METOCLOPRAMIDE 10 MG INJ IV SCH ×4 (05:45→23:45)
[2016-12-01] MEDS: PANTOPRAZOLE 40 MG INJ IV SCH ×2 (05:45→16:18)
[2016-12-01] MEDS: INSULIN ASPART [NOVOLOG] 3 ML PEN SC SCH ×5 (05:53→23:51)
--- NOTE | 2016-12-01 07:22 | PN ---
DATE: 11/30/2016 SUBJECTIVE: No acute changes overnight. The patient is very weak, sleeping, afebrile. She is on V ancomycin, Zosyn, Fluconazole. INDWELLINGS: Right chest Port-A-Cath, NG tube. PHYSICAL EXAMINATION: GENERAL: Chronically ill-appearing, cachectic, elderly woman who is in no distress. HEENT: Head atraumatic, normocephalic. Sclerae anicteric. Buccal mucosa dry. NECK: Supple. CHEST: Rise symmetrical. Breath sounds diminished to bases. HEART: S1, S2. ABDOMEN: Soft, bowel tones present. EXTREMITIES: No cyanosis. ASSESSMENT: 1. Bowel obstruction with loculated intra-abdominal fluid collection, remains on antibiotics. 2. Metastatic gastric CA with abdominal carcinomatosis. 3. Cachexia with failure to thrive. 4. Status post streptococcal bacteremia. PLAN: The patient remains unchanged. Continue present care, antibiotics. Follow oncology recommen dations. Dictated By: KJ HUYHN HAND [employer]TERATIONS SEAMSTRESS for LOLLY MUELLER/[place] Conf#: [id number] DID#: [id number]
[2016-12-01 08:37] VITALS: BP 143/72; RESP 20
--- NOTE | 2016-12-01 13:40 | CONS ---
Date/Time of Note Date/Time of Note DATE: 12/01/16 TIME: 13:39 Assessment/Plan Assessment/Plan Chief Complaint/Hosp Course SUBJECTIVE: No acute changes overnight. The patient is very weak, sleeping, afebrile. She is on Vancomycin, Zosyn, Fluconazole. INDWELLINGS: Right chest Port-A-Cath, NG tube. PHYSICAL EXAMINATION: GENERAL: Chronically ill-appearing, cachectic, elderly woman who is in no distress. HEENT: Head atraumatic, normocephalic. Sclerae anicteric. Buccal mucosa dry. NECK: Supple. CHEST: Rise symmetrical. Breath sounds diminished to bases. HEART: S1, S2. ABDOMEN: Soft, bowel tones present. EXTREMITIES: No cyanosis. ASSESSMENT: 1. Bowel obstruction with loculated intra-abdominal fluid collection, remains on antibiotics. 2. Metastatic gastric CA with abdominal carcinomatosis. 3. Cachexia with failure to thrive. 4. Status post streptococcal bacteremia. PLAN: The patient remains unchanged. Continue present care, antibiotics, pending hospice eval, oncology recommendations. DW staff Problems: Consultation Date/Type/Reason Admit Date/Time Oct 16, 2016 at 08:57 Type of Consultation: ID Referring Provider: KOBY FRANCO MD Exam/Review of Systems Vital Signs Vitals Vital Signs Date Time Temp Pulse Resp B/P Pulse Ox O2 Delivery O2 Flow Rate FiO2 12/01/16 08:37 98.5 81 20 143/72 97 11/30/16 01:00 Room Air Intake and Output 11/30/16 11/30/16 12/01/16 15:00 23:00 07:00 Intake Total 350 ml 750 ml 1740 ml Output Total 1100 ml 1200 ml Balance 350 ml -350 ml 540 ml Results Result Diagram: 11/30/16 0445 11/30/16 0445 Results 24 hrs Laboratory Tests Test 11/30/16 18:14 12/01/16 00:01 12/01/16 00:57 12/01/16 05:53 Bedside Glucose 81 109 94 Vancomycin Level Trough 20.8 *H Test 12/01/16 06:46 12/01/16 12:59 12/01/16 13:01 Lab Scanned Report BLOOD TRANSFUSION Bedside Glucose 151 159 Medications Medications Current Medications Ondansetron HCl 4 mg 4 mg Q4H PRN IV NAUSEA AND/OR VOMITING Last administered on 11/25/16 22:15; Admin Dose 4 MG; Start 10/17/16 at 19:00 Total Parenteral Nutrition (Tpn) 1,000 ml @ 100 mls/hr Q10H IV Last administered on 12/01/16 13:03; Admin Dose 100 MLS/HR; Start 10/19/16 at 18:30 Fentanyl (Duragesic 12 Mcg/Hr Patch) 1 patch Q72H TRANSDERM Last administered on 11/30/16 20:09; Admin Dose 1 PATCH; Start 10/19/16 at 18:30 Hydromorphone HCl (Dilaudid) 1 mg Q4H PRN IV BREAKTHROUGH PAIN Last administered on 11/28/16 16:06; Admin Dose 1 MG; Start 10/19/16 at 23:00 Lorazepam (Ativan) 0.5 mg Q8H PRN IV anxiety, insomnia Last administered on 15:24; Admin Dose 0.5 MG; Start 10/21/16 at 18:00 Metoclopramide HCl (Reglan) 5 mg Q6 IV Last administered on 12/01/16 13:02; Admin Dose 5 MG; Start 10/23/16 at 00:00 Enalaprilat (Vasotec Iv) 0.625 mg Q4H PRN IV ELEVATED BLOOD PRESSURE Last administered on 11/30/16 08:05; Admin Dose 0.625 MG; Start 10/29/16 at 10:00 Clonidine HCl (Catapres-Tts 2 Patch) 1 patch Q7D TRANSDERM Last administered on 11/24/16 17:44; Admin Dose 1 PATCH; Start 11/03/16 at 18:30 Lidocaine 15 ml 15 ml QID PRN PO SORE THROAT Last administered on 11/10/16 12: 53; Admin Dose 15 ML; Start 11/08/16 at 14:00 Acetaminophen (Ofirmev 1000mg/ 100ml Iv) 100 ml @ 400 mls/hr Q6H PRN IVPB FEVER Last administered on 11/22/16 06:55; Admin Dose 400 MLS/HR; Start at 16:00 Pantoprazole 40 mg 40 mg BID@06,18 IV Last administered on 12/01/16 05:45; Admin Dose 40 MG; Start 11/11/16 at 06:00 Paclitaxel/Sodium Chloride (taxOL/NS) 263.8333 ml @ 88.333 m... Q7D IV Last administered on 11/25/16 23:20; Admin Dose 88.333 MLS/HR; Start 11/25/16 at 21: 00 Diphenhydramine HCl (Benadryl) 50 mg Q7D IV Last administered on 11/25/16 22: 15; Admin Dose 50 MG; Start 11/25/16 at 20:00 Famotidine 20 mg 20 mg Q7D IV Last administered on 11/25/16 22:15; Admin Dose 20 MG; Start 11/25/16 at 20:00 Dexamethasone/ Dextrose (Decadron/D5W) 55 ml @ 252 mls/hr Q7D IV Last administered on 11/25/16 22:15; Admin Dose 252 MLS/HR; Start 11/25/16 at 20:00 Insulin Aspart (Novolog Insulin Pen) NOVOLOG *MILD* ALGORI... Q6 SC ; Start 11/26 at 00:00 Miscellaneous Information 1 ea NOTE XX ; Start 11/25/16 at 22:00 Glucose (Glutose) 15 gm Q15M PRN PO DECREASED GLUCOSE; Start 11/25/16 at 22:00 Glucose (Glutose) 22.5 gm Q15M PRN PO DECREASED GLUCOSE; Start 11/25/16 at 22: 00 Dextrose (D50w Syringe) 25 ml Q15M PRN IV DECREASED GLUCOSE; Start 11/25/16 at 22:00 Dextrose (D50w Syringe) 50 ml Q15M PRN IV DECREASED GLUCOSE; Start 11/25/16 at 22:00 Glucagon (Glucagen) 1 mg Q15M PRN IM DECREASED GLUCOSE; Start 11/25/16 at 22:00 Glucose (Glutose) 15 gm Q15M PRN BUCCAL DECREASED GLUCOSE; Start 11/25/16 at 22 :00 Miscellaneous Information MEDICATION REQUIRES CLARIFICATI... Q8H XX Last administered on 12/01/16 09:23; Admin Dose 1 EA; Start 11/26/16 at 17:00 Piperacillin Sod/ Tazobactam Sod 100 ml @ 200 mls/hr Q8 IVPB Last administered on 12/01/16 13:14; Admin Dose 200 MLS/HR; Start 11/27/16 at 14:00 Fluconazole/ Sodium Chloride 50 ml @ 50 mls/hr Q24H IVPB Last administered on 16:29; Admin Dose 50 MLS/HR; Start 11/28/16 at 15:30 Vancomycin HCl (Vancocin) 250 ml @ 125 mls/hr Q12H IVPB Last administered on 05:49; Admin Dose 125 MLS/HR; Start 12/01/16 at 05:00 KJ HUYNH NP Dec 01, 2016 13:40
[2016-12-01] MEDS: FLUCONAZOLE 100 MG/NS (PMX) 50 ML IVPB SCH (16:18)
[2016-12-01] MEDS: CLONIDINE 0.2 MG/24 HR PATCH TRANSDERM SCH (17:25)
[2016-12-01] MEDS ORDERED: FILGRASTIM 300 MCG INJ SC ONE (19:00)
[2016-12-01] MEDS ORDERED: ACETAMINOPHEN 325 MG TAB PO ONE (22:30)
[2016-12-01] MEDS ORDERED: DIPHENHYDRAMINE 50 MG INJ IV ONE (22:30)
[2016-12-02] MEDS: [UNRECOGNIZED DRUG - REMARK] XX SCH ×3 (01:00→17:00)
[2016-12-02] MEDS: VANCOMYCIN 1 GM in NS 250 ML IVPB SCH ×2 (04:49→17:42)
[2016-12-02] MEDS: METOCLOPRAMIDE 10 MG INJ IV SCH ×3 (05:58→17:42)
[2016-12-02] MEDS: INSULIN ASPART [NOVOLOG] 3 ML PEN SC SCH ×3 (05:59→18:00)
[2016-12-02] MEDS: PANTOPRAZOLE 40 MG INJ IV SCH ×2 (05:59→17:41)
[2016-12-02] MEDS: PIPER-TAZO 3.375 GM IV (PMX) 100 ML IVPB SCH ×3 (06:53→21:52)
[2016-12-02] MEDS: TPN 1,000 ML IV SCH ×2 (08:00→18:00)
--- NOTE | 2016-12-02 08:21 | PN ---
DATE: 12/01/2016 SUBJECTIVE: Patient is awake and alert. Reports that she does not qualify for hospice in the [facility], but is now interested in possibly staying in hospital for chemotherapy. The patient is adamant that she does not want to go home, whether for hospice or for chemo. OBJECTIVE: VITAL SIGNS: Temperature 98.5, blood pressure 143/72, pulse of 81, respiration rate 20, O2 saturati on 97%. HEENT: Anicteric sclerae. Oropharynx clear. Left nasogastric tube. CHEST: Clear to auscultation. CARDIAC: II/ heart murmur. ABDOMEN: Nondistended, nontender, no stool in the ileostomy bag. EXTREMITIES: No clubbing, cyanosis or edema. ASSESSMENT AND PLAN: Anemia and neutropenia. Since patient is not going to be on hospice at this [facility], we will go ahead and transfuse her with 1 unit of packed red cells and treat with Neupogen and recheck CBC in the morning. She will continue chemotherapy as per oncology plan. I will check with case management coordinator regarding different hospice options, possibly at a board and care or assisted living f acility since patient may have cultural aversion to dying at home. Dictated By: KOBY FRANCO MD DP/NTS Conf#: [id number] DID#: [id number]
[2016-12-02 08:51] VITALS: BP 187/79; RESP 20
[2016-12-02 09:15] VITALS: BP 144/70
--- NOTE | 2016-12-02 09:40 | PN ---
DATE: 12/02/2016 MEDICAL ONCOLOGY CONSULTATION SUBJECTIVE: The patient has no new complaints, although she has decided now that she no longer wish es to be on hospice. The patient states she wishes to continue chemotherapy. The patient has no complaints of pain at this time. No shortness of breath. OBJECTIVE: GENERAL: The patient is a well-developed, chronically ill-appearing female in no acute distress. VITAL SIGNS: Temperature 98.5, pulse 81, respirations 20, blood pressure 143/72, pulse oximetry 97% on room air. SKIN: Pale. No ecchymosis, no petechiae or rashes. HEENT: Normocephalic, alopecia. The pupils are equal, round, react to light, and accommodation. T here is mild scleral icterus. There is an NG tube in the left naris. No oral mucosal lesions. NECK: Supple, no jugular venous distention or thyroid enlargement. CHEST: Clear to auscultation and percussion except for decreased breath sounds in both bases. No r honchi, wheezes, rales, or rubs. There is a Port-A-Cath in place in the right anterior chest. This has been accessed. HEART: Regular sinus rhythm, no S3, S4, or murmurs. ABDOMEN: Firm in the area surrounding the patient's left-sided ostomy. There are the sounds of NG tube to suction. No obvious ascites. EXTREMITIES: No clubbing, edema, or cyanosis. No palpable cords or Homans sign. NEUROLOGIC: Normal except for generalized weakness. LABORATORIES: There has been no lab drawn in the last 24 hours. ASSESSMENT: 1. Abdominal carcinomatosis secondary to metastatic gastric carcinoma. 2. Bowel obstruction secondary to #1. PLAN: As noted, the patient does not wish to be on hospice after requesting that she be placed on h ospice on November 30. When questioned as to why she no longer wants to be on hospice, it is apparentl y because after being seen by hospice she was going to be discharged and the patient and family had made it clear that they wished to be on inpatient hospice. The patient does wish to continue on chemotherapy. She is due for chemotherapy today, but will have to repeat CBC and chemistry panel. We will also request that a PD-L1 assay be done on specimen [id number] which was obtained on 09/29/2016. Perhaps this will demonstrate that the patient has amplification of this and will be a candidate f or a checkpoint inhibitor. Dictated By: RADHA RODRIGUES MD, SR/[place] Conf#: [id number] DID#: [id number]
[2016-12-02 09:54] LABS: ADD SCAN DIFF NO
[2016-12-02 10:01] LABS: ABNORMAL IP MESSAGE 1; HEMATOCRIT 28.4 % (37.0-47.0); HEMOGLOBIN 9.8 g/dl (12.0-16.0); MEAN CORPUSCULAR HEMOGLOBIN 29.9 pg (29.0-33.0); MEAN CORPUSCULAR HGB CONC 34.5 g/dl (32.0-37.0); MEAN CORPUSCULAR VOLUME 86.6 fl (82.0-101.0); MEAN PLATELET VOLUME 11.1 fl (7.4-10.4); PLATELET COUNT 73 10^3/UL (140-415); RED BLOOD COUNT 3.28 10^6/ul (4.20-5.40); RED CELL DISTRIBUTION WIDTH 15.8 % (11.5-14.5); WHITE BLOOD COUNT 7.7 10^3/ul (4.8-10.8)
[2016-12-02 10:24] LABS: ALBUMIN 2.6 g/dl (3.3-4.9); BILIRUBIN,DIRECT 1.5 mg/dl (0.00-0.20); BILIRUBIN,TOTAL 2.5 mg/dl (0.2-1.3); CALCIUM 7.5 mg/dl (8.4-10.2); CREATININE 0.4 mg/dl (0.44-1.00); POTASSIUM 3.4 mmol/L (3.5-5.1); TOTAL PROTEIN 5.2 g/dl (6.1-8.1)
[2016-12-02 10:31] LABS: PREALBUMIN 7.1 mg/dl (17.6-36.0)
[2016-12-02 10:37] LABS: LYMPHOCYTES # 0.9 10^3/ul (0.8-2.9); MONOCYTE # 0.4 10^3/ul (0.3-0.9); NEUTROPHIL # 5.8 10^3/ul (1.6-7.5)
--- NOTE | 2016-12-02 12:33 | CONS ---
Date/Time of Note Date/Time of Note DATE: 12/02/16 TIME: 12:33 Assessment/Plan Assessment/Plan Chief Complaint/Hosp Course SUBJECTIVE: No acute changes overnight. The patient is very weak, sleeping, afebrile. She is on Vancomycin, Zosyn, Fluconazole. INDWELLINGS: Right chest Port-A-Cath, NG tube. PHYSICAL EXAMINATION: GENERAL: Chronically ill-appearing, cachectic, elderly woman who is in no distress. HEENT: Head atraumatic, normocephalic. Sclerae anicteric. Buccal mucosa dry. NECK: Supple. CHEST: Rise symmetrical. Breath sounds diminished to bases. HEART: S1, S2. ABDOMEN: Soft, bowel tones present. EXTREMITIES: No cyanosis. ASSESSMENT: 1. Bowel obstruction with loculated intra-abdominal fluid collection, remains on antibiotics. 2. Metastatic gastric CA with abdominal carcinomatosis. 3. Cachexia with failure to thrive. 4. Status post streptococcal bacteremia. PLAN: The patient remains unchanged. Continue present care, antibiotics, oncology recommendations noted, plan for chemo. DW staff Problems: Consultation Date/Type/Reason Admit Date/Time Oct 16, 2016 at 08:57 Type of Consultation: ID Referring Provider: KOBY FRANCO MD Exam/Review of Systems Vital Signs Vitals Vital Signs Date Time Temp Pulse Resp B/P Pulse Ox O2 Delivery O2 Flow Rate FiO2 12/02/16 09:15 74 144/70 12/02/16 08:51 98.6 20 98 11/30/16 01:00 Room Air Intake and Output 12/01/16 12/01/16 12/02/16 15:00 23:00 07:00 Intake Total 100 ml 1400 ml 950 ml Output Total 1350 ml 1000 ml Balance 100 ml 50 ml -50 ml Results Result Diagram: 12/02/1624 12/02/1624 Results 24 hrs Laboratory Tests Test 12/01/16 12:59 12/01/16 13:01 12/01/16 17:29 12/01/16 23:50 Bedside Glucose 151 159 92 92 Test 12/02/16 05:57 12/02/16 06:02 12/02/16 08:26 12/02/16 09:24 Bedside Glucose 74 99 Lab Scanned Report BLOOD TRANSFUSION White Blood Count 7.7 # Red Blood Count 3.28 L Hemoglobin 9.8 L Hematocrit 28.4 L Mean Corpuscular Volume 86.6 Mean Corpuscular Hemoglobin 29.9 Mean Corpuscular Hemoglobin Concent 34.5 Red Cell Distribution Width 15.8 H Platelet Count 73 L Mean Platelet Volume 11.1 H Neutrophils % 75.0 Band Neutrophils % 8.0 H Lymphocytes % 12.0 L Monocytes % 5.0 Eosinophils % Neutrophils # 5.8 Lymphocytes # 0.9 Monocytes # 0.4 Eosinophils # Giant Platelets RARE Sodium Level 139 Potassium Level 3.4 L Chloride Level 107 Carbon Dioxide Level 28 Anion Gap 7 L Blood Urea Nitrogen 16 Creatinine 0.40 L Glucose Level 131 Calcium Level 7.5 L Total Bilirubin 2.5 H Direct Bilirubin 1.50 H Indirect Bilirubin 1.0 Aspartate Amino Transf (AST/SGOT) 53 H Alanine Aminotransferase (ALT/SGPT) 51 Alkaline Phosphatase 153 H Total Protein 5.2 L Albumin 2.6 L Globulin 2.60 Albumin/Globulin Ratio 1.00 Prealbumin 7.1 L Test 12/02/16 12:17 Bedside Glucose 107 Medications Medications Current Medications Ondansetron HCl 4 mg 4 mg Q4H PRN IV NAUSEA AND/OR VOMITING Last administered on 11/25/16 22:15; Admin Dose 4 MG; Start 10/17/16 at 19:00 Total Parenteral Nutrition (Tpn) 1,000 ml @ 100 mls/hr Q10H IV Last administered on 12/01/16 21:14; Admin Dose 100 MLS/HR; Start 10/19/16 at 18:30 Fentanyl (Duragesic 12 Mcg/Hr Patch) 1 patch Q72H TRANSDERM Last administered on 11/30/16 20:09; Admin Dose 1 PATCH; Start 10/19/16 at 18:30 Hydromorphone HCl (Dilaudid) 1 mg Q4H PRN IV BREAKTHROUGH PAIN Last administered on 11/28/16 16:06; Admin Dose 1 MG; Start 10/19/16 at 23:00 Lorazepam (Ativan) 0.5 mg Q8H PRN IV anxiety, insomnia Last administered on 15:24; Admin Dose 0.5 MG; Start 10/21/16 at 18:00 Metoclopramide HCl (Reglan) 5 mg Q6 IV Last administered on 12/02/16 12:19; Admin Dose 5 MG; Start 10/23/16 at 00:00 Enalaprilat (Vasotec Iv) 0.625 mg Q4H PRN IV ELEVATED BLOOD PRESSURE Last administered on 11/30/16 08:05; Admin Dose 0.625 MG; Start 10/29/16 at 10:00 Clonidine HCl (Catapres-Tts 2 Patch) 1 patch Q7D TRANSDERM Last administered on 12/01/16 17:25; Admin Dose 1 PATCH; Start 11/03/16 at 18:30 Lidocaine 15 ml 15 ml QID PRN PO SORE THROAT Last administered on 11/10/16 12: 53; Admin Dose 15 ML; Start 11/08/16 at 14:00 Acetaminophen (Ofirmev 1000mg/ 100ml Iv) 100 ml @ 400 mls/hr Q6H PRN IVPB FEVER Last administered on 11/22/16 06:55; Admin Dose 400 MLS/HR; Start at 16:00 Pantoprazole 40 mg 40 mg BID@06,18 IV Last administered on 12/02/16 05:59; Admin Dose 40 MG; Start 11/11/16 at 06:00 Paclitaxel/Sodium Chloride (taxOL/NS) 263.8333 ml @ 88.333 m... Q7D IV Last administered on 11/25/16 23:20; Admin Dose 88.333 MLS/HR; Start 11/25/16 at 21: 00 Diphenhydramine HCl (Benadryl) 50 mg Q7D IV Last administered on 11/25/16 22: 15; Admin Dose 50 MG; Start 11/25/16 at 20:00 Famotidine 20 mg 20 mg Q7D IV Last administered on 11/25/16 22:15; Admin Dose 20 MG; Start 11/25/16 at 20:00 Dexamethasone/ Dextrose (Decadron/D5W) 55 ml @ 252 mls/hr Q7D IV Last administered on 11/25/16 22:15; Admin Dose 252 MLS/HR; Start 11/25/16 at 20:00 Insulin Aspart (Novolog Insulin Pen) NOVOLOG *MILD* ALGORI... Q6 SC ; Start 11/26 at 00:00 Miscellaneous Information 1 ea NOTE XX ; Start 11/25/16 at 22:00 Glucose (Glutose) 15 gm Q15M PRN PO DECREASED GLUCOSE; Start 11/25/16 at 22:00 Glucose (Glutose) 22.5 gm Q15M PRN PO DECREASED GLUCOSE; Start 11/25/16 at 22: 00 Dextrose (D50w Syringe) 25 ml Q15M PRN IV DECREASED GLUCOSE; Start 11/25/16 at 22:00 Dextrose (D50w Syringe) 50 ml Q15M PRN IV DECREASED GLUCOSE; Start 11/25/16 at 22:00 Glucagon (Glucagen) 1 mg Q15M PRN IM DECREASED GLUCOSE; Start 11/25/16 at 22:00 Glucose (Glutose) 15 gm Q15M PRN BUCCAL DECREASED GLUCOSE; Start 11/25/16 at 22 :00 Miscellaneous Information MEDICATION REQUIRES CLARIFICATI... Q8H XX Last administered on 12/01/16 16:18; Admin Dose 1 EA; Start 11/26/16 at 17:00 Piperacillin Sod/ Tazobactam Sod 100 ml @ 200 mls/hr Q8 IVPB Last administered on 12/02/16 06:53; Admin Dose 200 MLS/HR; Start 11/27/16 at 14:00 Fluconazole/ Sodium Chloride 50 ml @ 50 mls/hr Q24H IVPB Last administered on 16:18; Admin Dose 50 MLS/HR; Start 11/28/16 at 15:30 Vancomycin HCl (Vancocin) 250 ml @ 125 mls/hr Q12H IVPB Last administered on 04:49; Admin Dose 125 MLS/HR; Start 12/01/16 at 05:00 Miscellaneous Information (*Rx Drug Level Order Reminder*) VANCOMYCIN TROUGH 12/03 AT 0400 ONCE ONCE XX ; Start 12/03/16 at 04:00; Stop 12/03/16 at 04:01 KJ HUYNH NP Dec 02, 2016 12:33
[2016-12-02] MEDS: FLUCONAZOLE 100 MG/NS (PMX) 50 ML IVPB SCH (16:29)
[2016-12-02] MEDS ORDERED: POTASSIUM CHLORIDE 20 MEQ in SOD CHLORIDE 0.9% 100 ML IVPB ONE (17:30)
--- NOTE | 2016-12-02 18:20 | PN ---
DATE: 12/02/2016 SUBJECTIVE: The patient is awake, alert, and oriented. Still requires NG tube suction for nausea, vomiting, and TPN for nutrition. PHYSICAL EXAMINATION: HEENT: Pupils equally round, reactive to light. Anicteric sclerae. Left nasogastric tube. Oropha rynx clear. LUNGS: Clear to auscultation. CARDIAC: II/ systolic murmur. ABDOMEN: Active bowel sounds. Left ileostomy. EXTREMITIES: No clubbing, cyanosis, or edema. LABORATORY DATA: WBC 7.7, hemoglobin 9.8, hematocrit 28.4, platelet count 73,000. Sodium 139, pota ssium 3.4, chloride 107, carbon dioxide 28, BUN 16, creatinine 0.40, glucose 131. Total bilirubin 2 .5, direct bilirubin 1.5, elevated AST of 53, elevated alkaline phosphatase of 153, total protein 5. 2, albumin 2.6 and prealbumin 7.1. ASSESSMENT AND PLAN: 1. Metastatic gastric cancer. The patient is finished with the first course of chemotherapy. She may elect to continue physical therapy as an outpatient. We will need to discharge to a facility at can continue nasogastric suction and total parenteral nutrition since patient is unable to keep d own any p.o. at this time due to intestinal obstruction from gastric carcinomatosis. 2. Hypokalemia. Replace potassium IV today and follow potassium, phosphorus, and magnesium tomorro w. 3. Anemia, leukocytopenia, and thrombocytopenia. The white cell count and anemia as well as platel ets are improving slowly. Will not need to give any more Neupogen or packed red blood cell at this time. Dictated By: KOBY FRANCO MD DP/NTS Conf#: [id number] DID#: [id number]
[2016-12-02] MEDS: FAMOTIDINE 20 MG INJ IV SCH (20:00)
[2016-12-02] MEDS: DIPHENHYDRAMINE 50 MG INJ IV SCH (20:00)
[2016-12-02] MEDS: DEXAMETHASONE 4 MG/ML 20 MG in DEXTROSE 5% 50 ML IV SCH (20:00)
[2016-12-02] MEDS: SOD CHLORIDE 0.9% IV SCH (21:00)
[2016-12-02] MEDS: PACLITAXEL IV SCH (21:00)
[2016-12-02 22:07] VITALS: BP 157/71; RESP 20
[2016-12-03] MEDS: METOCLOPRAMIDE 10 MG INJ IV SCH ×4 (00:50→17:49)
[2016-12-03] MEDS: TPN 1,000 ML IV SCH ×2 (00:50→14:20)
[2016-12-03] MEDS: [UNRECOGNIZED DRUG - REMARK] XX SCH ×3 (01:00→16:18)
[2016-12-03 04:28] LABS: CREATININE 0.44 mg/dl (0.44-1.00); PHOSPHORUS 2.6 mg/dl (2.5-4.9); POTASSIUM 3.8 mmol/L (3.5-5.1)
[2016-12-03] MEDS: PANTOPRAZOLE 40 MG INJ IV SCH ×2 (05:23→17:49)
[2016-12-03] MEDS: PIPER-TAZO 3.375 GM IV (PMX) 100 ML IVPB SCH ×3 (05:23→21:27)
[2016-12-03] MEDS: INSULIN ASPART [NOVOLOG] 3 ML PEN SC SCH ×4 (06:00→17:55)
[2016-12-03] MEDS: VANCOMYCIN 1 GM in NS 250 ML IVPB SCH ×2 (06:00→17:49)
[2016-12-03 08:29] VITALS: BP 171/79; RESP 18
--- NOTE | 2016-12-03 14:36 | PN ---
Date/Time of Note Date/Time of Note DATE: 12/03/16 TIME: 14:33 Assessment/Plan VTE Prophylaxis VTE Prophylaxis Intervention: other Lines/Catheters IV Catheter Type (from Nrs): PORTACATH Urinary Cath still in place: No Assessment/Plan Assessment/Plan Pt accepted hospice and then declined it since inpatient hospice was what she expected. Continue to focus on comfort care since further chemotherapy seems futile. Subjective 24 Hr Interval Summary Free Text/Dictation Pt is comfortable today Exam/Review of Systems Vital Signs Vitals Vital Signs Date Time Temp Pulse Resp B/P Pulse Ox O2 Delivery O2 Flow Rate FiO2 12/03/16 08:29 98.2 81 18 171/79 91 11/30/16 01:00 Room Air Intake and Output 12/02/16 12/02/16 12/03/16 14:59 22:59 06:59 Intake Total 100 ml 1200 ml 1060 ml Output Total 900 ml 1450 ml Balance 100 ml 300 ml -390 ml Exam Constitutional: alert, oriented Head: normocephalic Neck: supple Respiratory: clear to auscultation Cardiovascular: regular rate and rhythm Gastrointestinal: soft Results Result Diagram: 12/02/16 0924 12/03/16 0355 Results 24 hrs Laboratory Tests Test 12/02/16 17:26 12/03/16 01:22 12/03/16 03:55 12/03/16 06:31 Bedside Glucose 77 108 90 Sodium Level 141 Potassium Level 3.8 Chloride Level 108 Carbon Dioxide Level 29 Anion Gap 8 Blood Urea Nitrogen 16 Creatinine 0.44 Glucose Level 136 Calcium Level 8.0 L Phosphorus Level 2.6 Magnesium Level 2.0 Vancomycin Level Trough 16.8 Test 12/03/16 12:38 Bedside Glucose 143 Medications Medications Current Medications Ondansetron HCl 4 mg 4 mg Q4H PRN IV NAUSEA AND/OR VOMITING Last administered on 11/25/16 22:15; Admin Dose 4 MG; Start 10/17/16 at 19:00 Total Parenteral Nutrition (Tpn) 1,000 ml @ 100 mls/hr Q10H IV Last administered on 12/03/16 14:20; Admin Dose 100 MLS/HR; Start 10/19/16 at 18:30 Fentanyl (Duragesic 12 Mcg/Hr Patch) 1 patch Q72H TRANSDERM Last administered on 11/30/16 20:09; Admin Dose 1 PATCH; Start 10/19/16 at 18:30 Hydromorphone HCl (Dilaudid) 1 mg Q4H PRN IV BREAKTHROUGH PAIN Last administered on 11/28/16 16:06; Admin Dose 1 MG; Start 10/19/16 at 23:00 Lorazepam (Ativan) 0.5 mg Q8H PRN IV anxiety, insomnia Last administered on 15:24; Admin Dose 0.5 MG; Start 10/21/16 at 18:00 Metoclopramide HCl (Reglan) 5 mg Q6 IV Last administered on 12/03/16 12:36; Admin Dose 5 MG; Start 10/23/16 at 00:00 Enalaprilat (Vasotec Iv) 0.625 mg Q4H PRN IV ELEVATED BLOOD PRESSURE Last administered on 11/30/16 08:05; Admin Dose 0.625 MG; Start 10/29/16 at 10:00 Clonidine HCl (Catapres-Tts 2 Patch) 1 patch Q7D TRANSDERM Last administered on 12/01/16 17:25; Admin Dose 1 PATCH; Start 11/03/16 at 18:30 Lidocaine 15 ml 15 ml QID PRN PO SORE THROAT Last administered on 11/10/16 12: 53; Admin Dose 15 ML; Start 11/08/16 at 14:00 Acetaminophen (Ofirmev 1000mg/ 100ml Iv) 100 ml @ 400 mls/hr Q6H PRN IVPB FEVER Last administered on 11/22/16 06:55; Admin Dose 400 MLS/HR; Start at 16:00 Pantoprazole 40 mg 40 mg BID@06,18 IV Last administered on 12/03/16 05:23; Admin Dose 40 MG; Start 11/11/16 at 06:00 Paclitaxel/Sodium Chloride (taxOL/NS) 263.8333 ml @ 88.333 m... Q7D IV Last administered on 11/25/16 23:20; Admin Dose 88.333 MLS/HR; Start 11/25/16 at 21: 00 Diphenhydramine HCl (Benadryl) 50 mg Q7D IV Last administered on 11/25/16 22: 15; Admin Dose 50 MG; Start 11/25/16 at 20:00 Famotidine 20 mg 20 mg Q7D IV Last administered on 11/25/16 22:15; Admin Dose 20 MG; Start 11/25/16 at 20:00 Dexamethasone/ Dextrose (Decadron/D5W) 55 ml @ 252 mls/hr Q7D IV Last administered on 11/25/16 22:15; Admin Dose 252 MLS/HR; Start 11/25/16 at 20:00 Insulin Aspart (Novolog Insulin Pen) NOVOLOG *MILD* ALGORI... Q6 SC ; Start 11/26 at 00:00 Miscellaneous Information 1 ea NOTE XX ; Start 11/25/16 at 22:00 Glucose (Glutose) 15 gm Q15M PRN PO DECREASED GLUCOSE; Start 11/25/16 at 22:00 Glucose (Glutose) 22.5 gm Q15M PRN PO DECREASED GLUCOSE; Start 11/25/16 at 22: 00 Dextrose (D50w Syringe) 25 ml Q15M PRN IV DECREASED GLUCOSE; Start 11/25/16 at 22:00 Dextrose (D50w Syringe) 50 ml Q15M PRN IV DECREASED GLUCOSE; Start 11/25/16 at 22:00 Glucagon (Glucagen) 1 mg Q15M PRN IM DECREASED GLUCOSE; Start 11/25/16 at 22:00 Glucose (Glutose) 15 gm Q15M PRN BUCCAL DECREASED GLUCOSE; Start 11/25/16 at 22 :00 Miscellaneous Information MEDICATION REQUIRES CLARIFICATI... Q8H XX Last administered on 12/03/16 09:37; Admin Dose 1 EA; Start 11/26/16 at 17:00 Piperacillin Sod/ Tazobactam Sod 100 ml @ 200 mls/hr Q8 IVPB Last administered on 12/03/16 14:20; Admin Dose 200 MLS/HR; Start 11/27/16 at 14:00 Fluconazole/ Sodium Chloride 50 ml @ 50 mls/hr Q24H IVPB Last administered on 16:29; Admin Dose 50 MLS/HR; Start 11/28/16 at 15:30 Vancomycin HCl (Vancocin) 250 ml @ 125 mls/hr Q12H IVPB Last administered on 06:00; Admin Dose 125 MLS/HR; Start 6/6/17 at 05:00 CHACHA LEDESMA MD Dec 03, 2016 14:36
--- NOTE | 2016-12-03 15:47 | CONS ---
Date/Time of Note Date/Time of Note DATE: 12/03/16 TIME: 15:46 Assessment/Plan Assessment/Plan Chief Complaint/Hosp Course SUBJECTIVE: No acute changes,awake, c/o throat pain, no fevers, nad. Abx: Vancomycin, Zosyn, Fluconazole. INDWELLINGS: Right chest Port-A-Cath, NG tube. PHYSICAL EXAMINATION: GENERAL: Chronically ill-appearing, cachectic, elderly woman who is in no distress. HEENT: Head atraumatic, normocephalic. Sclerae anicteric. Buccal mucosa dry. NECK: Supple. CHEST: Rise symmetrical. Breath sounds diminished to bases. HEART: S1, S2. ABDOMEN: Soft, bowel tones present. EXTREMITIES: No cyanosis. ASSESSMENT: 1. Bowel obstruction with loculated intra-abdominal fluid collection, remains on antibiotics. 2. Metastatic gastric CA with abdominal carcinomatosis. 3. Cachexia with failure to thrive. 4. Status post streptococcal bacteremia. PLAN: The patient remains unchanged. Continue present care, antibiotics, f/u oncology recommendations==> refused chemo per staff. DW staff Problems: Consultation Date/Type/Reason Admit Date/Time Oct 16, 2016 at 08:57 Type of Consultation: ID Referring Provider: KOBY FRANCO MD Exam/Review of Systems Vital Signs Vitals Vital Signs Date Time Temp Pulse Resp B/P Pulse Ox O2 Delivery O2 Flow Rate FiO2 12/03/16 08:29 98.2 81 18 171/79 91 11/30/16 01:00 Room Air Intake and Output 12/02/16 12/02/16 12/03/16 15:00 23:00 07:00 Intake Total 100 ml 1200 ml 1060 ml Output Total 900 ml 1450 ml Balance 100 ml 300 ml -390 ml Results Result Diagram: 12/02/16 0924 12/03/16 0355 Results 24 hrs Laboratory Tests Test 12/02/16 17:26 12/03/16 01:22 12/03/16 03:55 12/03/16 06:31 Bedside Glucose 77 108 90 Sodium Level 141 Potassium Level 3.8 Chloride Level 108 Carbon Dioxide Level 29 Anion Gap 8 Blood Urea Nitrogen 16 Creatinine 0.44 Glucose Level 136 Calcium Level 8.0 L Phosphorus Level 2.6 Magnesium Level 2.0 Vancomycin Level Trough 16.8 Test 12/03/16 12:38 Bedside Glucose 143 Medications Medications Current Medications Ondansetron HCl 4 mg 4 mg Q4H PRN IV NAUSEA AND/OR VOMITING Last administered on 11/25/16 22:15; Admin Dose 4 MG; Start 10/17/16 at 19:00 Total Parenteral Nutrition (Tpn) 1,000 ml @ 100 mls/hr Q10H IV Last administered on 12/03/16 14:20; Admin Dose 100 MLS/HR; Start 10/19/16 at 18:30 Fentanyl (Duragesic 12 Mcg/Hr Patch) 1 patch Q72H TRANSDERM Last administered on 11/30/16 20:09; Admin Dose 1 PATCH; Start 10/19/16 at 18:30 Hydromorphone HCl (Dilaudid) 1 mg Q4H PRN IV BREAKTHROUGH PAIN Last administered on 11/28/16 16:06; Admin Dose 1 MG; Start 10/19/16 at 23:00 Lorazepam (Ativan) 0.5 mg Q8H PRN IV anxiety, insomnia Last administered on 15:24; Admin Dose 0.5 MG; Start 10/21/16 at 18:00 Metoclopramide HCl (Reglan) 5 mg Q6 IV Last administered on 12/03/16 12:36; Admin Dose 5 MG; Start 10/23/16 at 00:00 Enalaprilat (Vasotec Iv) 0.625 mg Q4H PRN IV ELEVATED BLOOD PRESSURE Last administered on 11/30/16 08:05; Admin Dose 0.625 MG; Start 10/29/16 at 10:00 Clonidine HCl (Catapres-Tts 2 Patch) 1 patch Q7D TRANSDERM Last administered on 12/01/16 17:25; Admin Dose 1 PATCH; Start 11/03/16 at 18:30 Lidocaine 15 ml 15 ml QID PRN PO SORE THROAT Last administered on 11/10/16 12: 53; Admin Dose 15 ML; Start 11/08/16 at 14:00 Acetaminophen (Ofirmev 1000mg/ 100ml Iv) 100 ml @ 400 mls/hr Q6H PRN IVPB FEVER Last administered on 11/22/16 06:55; Admin Dose 400 MLS/HR; Start at 16:00 Pantoprazole 40 mg 40 mg BID@06,18 IV Last administered on 12/03/16 05:23; Admin Dose 40 MG; Start 11/11/16 at 06:00 Paclitaxel/Sodium Chloride (taxOL/NS) 263.8333 ml @ 88.333 m... Q7D IV Last administered on 11/25/16 23:20; Admin Dose 88.333 MLS/HR; Start 11/25/16 at 21: 00 Diphenhydramine HCl (Benadryl) 50 mg Q7D IV Last administered on 11/25/16 22: 15; Admin Dose 50 MG; Start 11/25/16 at 20:00 Famotidine 20 mg 20 mg Q7D IV Last administered on 11/25/16 22:15; Admin Dose 20 MG; Start 11/25/16 at 20:00 Dexamethasone/ Dextrose (Decadron/D5W) 55 ml @ 252 mls/hr Q7D IV Last administered on 11/25/16 22:15; Admin Dose 252 MLS/HR; Start 11/25/16 at 20:00 Insulin Aspart (Novolog Insulin Pen) NOVOLOG *MILD* ALGORI... Q6 SC ; Start 11/26 at 00:00 Miscellaneous Information 1 ea NOTE XX ; Start 11/25/16 at 22:00 Glucose (Glutose) 15 gm Q15M PRN PO DECREASED GLUCOSE; Start 11/25/16 at 22:00 Glucose (Glutose) 22.5 gm Q15M PRN PO DECREASED GLUCOSE; Start 11/25/16 at 22: 00 Dextrose (D50w Syringe) 25 ml Q15M PRN IV DECREASED GLUCOSE; Start 11/25/16 at 22:00 Dextrose (D50w Syringe) 50 ml Q15M PRN IV DECREASED GLUCOSE; Start 11/25/16 at 22:00 Glucagon (Glucagen) 1 mg Q15M PRN IM DECREASED GLUCOSE; Start 11/25/16 at 22:00 Glucose (Glutose) 15 gm Q15M PRN BUCCAL DECREASED GLUCOSE; Start 11/25/16 at 22 :00 Miscellaneous Information MEDICATION REQUIRES CLARIFICATI... Q8H XX Last administered on 12/03/16 09:37; Admin Dose 1 EA; Start 11/26/16 at 17:00 Piperacillin Sod/ Tazobactam Sod 100 ml @ 200 mls/hr Q8 IVPB Last administered on 12/03/16 14:20; Admin Dose 200 MLS/HR; Start 11/27/16 at 14:00 Fluconazole/ Sodium Chloride 50 ml @ 50 mls/hr Q24H IVPB Last administered on 16:29; Admin Dose 50 MLS/HR; Start 11/28/16 at 15:30 Vancomycin HCl (Vancocin) 250 ml @ 125 mls/hr Q12H IVPB Last administered on 06:00; Admin Dose 125 MLS/HR; Start 12/01/16 at 05:00 KJ HUYNH NP Dec 03, 2016 15:47
[2016-12-03] MEDS: FLUCONAZOLE 100 MG/NS (PMX) 50 ML IVPB SCH (16:18)
[2016-12-03] MEDS: FENTAnyl PATCH 12 MCG/HR TRANSDERM SCH (21:29)
[2016-12-03 23:05] VITALS: BP 169/77; RESP 20
--- NOTE | 2016-12-03 23:05 | PN ---
DATE: 12/03/2016 SUBJECTIVE: The patient awake, alert, oriented. No current complaints. OBJECTIVE: VITAL SIGNS: Temperature 98.2, blood pressure 171/79, pulse of 81, respiration rate 18, O2 saturation 91%. HEENT: Pupils equally round and reactive. Anicteric sclerae. Left nasogastric tube to suction. CHEST: Lungs are clear to auscultation anteriorly. CARDIAC: A II/ systolic murmur. ABDOMEN: Active bowel sounds. Nontender. Left ileostomy bag. LABORATORY DATA: Sodium 141, potassium 3.8, chloride 108, carbon dioxide 29, BUN 16, creatinine 0.44, glucose 138. ASSESSMENT AND PLAN: 1. Status post sepsis with streptococcal bacteremia, currently on vancomycin, Zosyn and fluconazole and now with new-onset hypoxia. We could recheck chest x- ray today for recurrence of pneumonia if patient wanted to go ahead with aggressive intervention and treatment but at this point she is seriously considering hospice so will have to hold off on further work up and intervention at this time. 2. Metastatic gastric cancer, status post chemotherapy. No evidence of progression or regression of disease. The patient still requires nasogastric suction and total parenteral nutrition since she still is unable to tolerate any oral intake. 3. Hypertension. May be due to recurrence of infection, but it has been episodically elevated for some time. The patient currently on clonidine patch only since she is unable to tolerate oral medication. I would consider increasing Catapres to TTS 3 if elevated blood pressure persists. 4. Diabetes mellitus. Blood sugar stable on current insulin and TPN. Dictated By: KOBY FRNACO MD DP/NTS Conf#: [id number] DID#: [id number] MTDD
[2016-12-04] MEDS: TPN 1,000 ML IV SCH ×2 (00:15→13:27)
[2016-12-04] MEDS: METOCLOPRAMIDE 10 MG INJ IV SCH ×3 (00:16→12:37)
[2016-12-04] MEDS: [UNRECOGNIZED DRUG - REMARK] XX SCH (00:16)
[2016-12-04 00:36] VITALS: BP 155/79
[2016-12-04] MEDS: HYDROmorphONE 1 MG/ML SYG IV PRN ×2 (03:57→12:37)
[2016-12-04] MEDS: VANCOMYCIN 1 GM in NS 250 ML IVPB SCH (03:59)
[2016-12-04 05:54] LABS: CALCIUM 8.4 mg/dl (8.4-10.2); CREATININE 0.39 mg/dl (0.44-1.00); PHOSPHORUS 2.7 mg/dl (2.5-4.9); POTASSIUM 3.8 mmol/L (3.5-5.1)
[2016-12-04] MEDS: INSULIN ASPART [NOVOLOG] 3 ML PEN SC SCH ×2 (06:00)
[2016-12-04] MEDS: PIPER-TAZO 3.375 GM IV (PMX) 100 ML IVPB SCH (06:06)
[2016-12-04] MEDS: PANTOPRAZOLE 40 MG INJ IV SCH (06:06)
[2016-12-04 08:36] VITALS: BP 178/71; RESP 20
--- NOTE | 2016-12-04 09:12 | PN ---
DATE: 12/04/2016 SUBJECTIVE: The patient states that she is feeling lethargic today, did take medication for sleepin g last night, as well as his pain medication. The patient states that the pain and swelling is not present any longer. OBJECTIVE: GENERAL: The patient is a well-developed, but chronically ill-appearing female, who is in no acute distress. VITAL SIGNS: Temperature 98, pulse 75 per minute and regular, respirations 20, blood pressure 155/7 9. SKIN: No ecchymosis, petechiae or rashes. HEENT: Alopecia. No mucosal lesions. There is trace scleral icterus. Nasogastric tube is in plac e in the patient's left naris and connected to suction. NECK: Supple. No jugular venous distention or thyroid enlargement. CHEST: Decreased breath sounds in both bases. No rhonchi, wheezes, rales or rubs. There is a Port -A-Cath in the right anterior chest wall, which has been accessed. HEART: Regular sinus rhythm. No S3, S4 or murmurs. ABDOMEN: Mildly distended. There is firmness surrounding the area of the left-sided ostomy stoma. EXTREMITIES: No clubbing, edema or cyanosis. No palpable cords or Homans sign. NEUROLOGIC: Weakness, but no focal neurologic abnormalities. IMPRESSION: 1. Abdominal carcinomatosis secondary to metastatic gastric carcinoma. 2. Bowel obstruction secondary to #1. DISCUSSION: The patient was to receive chemotherapy on 12/02/2016. This was after she had decided she did not want to be on hospice. Chemotherapy was mixed and when to be hung, the patient decided she did not wish to have chemotherap y. Apparently, placement is being arranged at this time. It is unclear whether the patient is to be on hospice. I had previously requested a PD-L1 SA on a specimen from surgery of 09/29/2016. It is unlikely; how ever, now that the results will be of any consequence as the patient apparently does not wish to hav e any further chemotherapy. Will see him again on a p.r.n. basis. Dictated By: RADHA RODRIGUES MD SR/NTS Conf#: [id number] DID#: [id number]
--- NOTE | 2016-12-04 13:01 | CONS ---
Date/Time of Note Date/Time of Note DATE: 12/04/16 TIME: 13:00 Assessment/Plan Assessment/Plan Chief Complaint/Hosp Course SUBJECTIVE: No acute changes, awake, no fevers, nad. Abx: Vancomycin, Zosyn, Fluconazole. INDWELLINGS: Right chest Port-A-Cath, NG tube. PHYSICAL EXAMINATION: GENERAL: Chronically ill-appearing, cachectic, elderly woman who is in no distress. HEENT: Head atraumatic, normocephalic. Sclerae anicteric. Buccal mucosa dry. NECK: Supple. CHEST: Rise symmetrical. Breath sounds diminished to bases. HEART: S1, S2. ABDOMEN: Soft, bowel tones present. EXTREMITIES: No cyanosis. ASSESSMENT: 1. Bowel obstruction with loculated intra-abdominal fluid collection, remains on antibiotics. 2. Metastatic gastric CA with abdominal carcinomatosis. 3. Cachexia with failure to thrive. 4. Status post streptococcal bacteremia. PLAN: The patient remains unchanged. Continue present care, antibiotics, pending dc arrangements, unclear if pt wants to be under hospice care. [facility] staff Problems: Consultation Date/Type/Reason Admit Date/Time Oct 16, 2016 at 08:57 Type of Consultation: ID Referring Provider: KOBY FRANCO MD Exam/Review of Systems Vital Signs Vitals Vital Signs Date Time Temp Pulse Resp B/P Pulse Ox O2 Delivery O2 Flow Rate FiO2 12/04/16 08:36 97.8 85 20 178/71 97 Intake and Output 12/03/16 12/03/16 12/04/16 15:00 23:00 07:00 Intake Total 250 ml 425 ml 1850 ml Output Total 800 ml 1075 ml Balance 250 ml -375 ml 775 ml Results Result Diagram: 12/02/16 0924 12/04/16 0437 Results 24 hrs Laboratory Tests Test 12/03/16 17:54 12/04/16 00:14 12/04/16 04:37 12/04/16 06:05 Bedside Glucose 81 126 88 Sodium Level 141 Potassium Level 3.8 Chloride Level 107 Carbon Dioxide Level 28 Anion Gap 10 Blood Urea Nitrogen 15 Creatinine 0.39 L Glucose Level 118 Calcium Level 8.4 Phosphorus Level 2.7 Test 12/04/16 12:42 Bedside Glucose 134 Medications Medications Current Medications Ondansetron HCl 4 mg 4 mg Q4H PRN IV NAUSEA AND/OR VOMITING Last administered on 11/25/16 22:15; Admin Dose 4 MG; Start 10/17/16 at 19:00 Total Parenteral Nutrition (Tpn) 1,000 ml @ 100 mls/hr Q10H IV Last administered on 12/04/16 00:15; Admin Dose 100 MLS/HR; Start 10/19/16 at 18:30 Fentanyl (Duragesic 12 Mcg/Hr Patch) 1 patch Q72H TRANSDERM Last administered on 12/03/16 21:29; Admin Dose 1 PATCH; Start 10/19/16 at 18:30 Hydromorphone HCl (Dilaudid) 1 mg Q4H PRN IV BREAKTHROUGH PAIN Last administered on 12/04/16 12:37; Admin Dose 1 MG; Start 10/19/16 at 23:00 Lorazepam (Ativan) 0.5 mg Q8H PRN IV anxiety, insomnia Last administered on 15:24; Admin Dose 0.5 MG; Start 10/21/16 at 18:00 Metoclopramide HCl (Reglan) 5 mg Q6 IV Last administered on 12/04/16 12:37; Admin Dose 5 MG; Start 10/23/16 at 00:00 Enalaprilat (Vasotec Iv) 0.625 mg Q4H PRN IV ELEVATED BLOOD PRESSURE Last administered on 11/30/16 08:05; Admin Dose 0.625 MG; Start 10/29/16 at 10:00 Clonidine HCl (Catapres-Tts 2 Patch) 1 patch Q7D TRANSDERM Last administered on 12/01/16 17:25; Admin Dose 1 PATCH; Start 11/03/16 at 18:30 Lidocaine 15 ml 15 ml QID PRN PO SORE THROAT Last administered on 11/10/16 12: 53; Admin Dose 15 ML; Start 11/08/16 at 14:00 Acetaminophen (Ofirmev 1000mg/ 100ml Iv) 100 ml @ 400 mls/hr Q6H PRN IVPB FEVER Last administered on 11/22/16 06:55; Admin Dose 400 MLS/HR; Start at 16:00 Pantoprazole 40 mg 40 mg BID@06,18 IV Last administered on 12/04/16 06:06; Admin Dose 40 MG; Start 11/11/16 at 06:00 Paclitaxel/Sodium Chloride (taxOL/NS) 263.8333 ml @ 88.333 m... Q7D IV Last administered on 11/25/16 23:20; Admin Dose 88.333 MLS/HR; Start 11/25/16 at 21: 00 Diphenhydramine HCl (Benadryl) 50 mg Q7D IV Last administered on 11/25/16 22: 15; Admin Dose 50 MG; Start 11/25/16 at 20:00 Famotidine 20 mg 20 mg Q7D IV Last administered on 11/25/16 22:15; Admin Dose 20 MG; Start 11/25/16 at 20:00 Dexamethasone/ Dextrose (Decadron/D5W) 55 ml @ 252 mls/hr Q7D IV Last administered on 11/25/16 22:15; Admin Dose 252 MLS/HR; Start 11/25/16 at 20:00 Insulin Aspart (Novolog Insulin Pen) NOVOLOG *MILD* ALGORI... Q6 SC ; Start 11/26 at 00:00 Miscellaneous Information 1 ea NOTE XX ; Start 11/25/16 at 22:00 Glucose (Glutose) 15 gm Q15M PRN PO DECREASED GLUCOSE; Start 11/25/16 at 22:00 Glucose (Glutose) 22.5 gm Q15M PRN PO DECREASED GLUCOSE; Start 11/25/16 at 22: 00 Dextrose (D50w Syringe) 25 ml Q15M PRN IV DECREASED GLUCOSE; Start 11/25/16 at 22:00 Dextrose (D50w Syringe) 50 ml Q15M PRN IV DECREASED GLUCOSE; Start 11/25/16 at 22:00 Glucagon (Glucagen) 1 mg Q15M PRN IM DECREASED GLUCOSE; Start 11/25/16 at 22:00 Glucose (Glutose) 15 gm Q15M PRN BUCCAL DECREASED GLUCOSE; Start 11/25/16 at 22 :00 Miscellaneous Information MEDICATION REQUIRES CLARIFICATI... Q8H XX Last administered on 12/03/16 16:18; Admin Dose 1 EA; Start 11/26/16 at 17:00 Piperacillin Sod/ Tazobactam Sod 100 ml @ 200 mls/hr Q8 IVPB Last administered on 12/04/16 06:06; Admin Dose 200 MLS/HR; Start 11/27/16 at 14:00 Fluconazole/ Sodium Chloride 50 ml @ 50 mls/hr Q24H IVPB Last administered on 16:18; Admin Dose 50 MLS/HR; Start 11/28/16 at 15:30 Vancomycin HCl (Vancocin) 250 ml @ 125 mls/hr Q12H IVPB Last administered on 03:59; Admin Dose 125 MLS/HR; Start 12/01/16 at 05:00 Miscellaneous Information (*Rx Drug Level Order Reminder*) VANCO TROUGH @ 0, 400 ON... ONCE ONCE XX ; Start 12/05/16 at 04:00; Stop 12/05/16 at 04:01 KJ HUYNH NP Dec 04, 2016 13:01
[2016-12-04] MEDS ORDERED: ATROPINE SULFATE 1% 5ML SL PRN (15:00)
[2016-12-04] MEDS ORDERED: LORAZEPAM 2 MG INJ IV PRN (15:00)
[2016-12-04] MEDS: morphine (DRIP) 100 MG/100 ML 100 ML IV SCH (16:42)
[2016-12-04 19:00] VITALS: BP 167/80; RESP 18
[2016-12-05 07:50] VITALS: BP 164/74; RESP 20
--- NOTE | 2016-12-05 09:58 | DS ---
DATE OF ADMISSION: 10/16/2016 DATE OF DISCHARGE: 12/04/2016 The patient is being discharged from my service to be admitted to inpatient hospice service. DISCHARGE DIAGNOSES: 1. Metastatic gastric carcinoma with abdominal carcinomatosis. 2. Nausea and vomiting. 3. Small-bowel obstruction. 4. Hypertension. 5. Diabetes. HOSPITAL COURSE: This 66-year-old [place] patient was admitted previously for small-bowel obstruct ion, requiring laparotomy, with findings of diffuse abdominal carcinomatosis causing multiple adhesi ons and creation of an ileostomy. However, the patient was readmitted within 1 week after discharge due to recurrence of symptoms, even before the patient was able to start on the outpatient chemothe rapy that was scheduled at [facility]. We started the patient on NG tube suction, with resolution of nausea and vomiting. We started her on total parenteral nutrition and started her on chemothera py, as planned at [facility] oncology center. The patient underwent several weeks of chemotherapy , with multiple complications in between, including pneumonia, urinary tract infection, leukopenia, anemia, and thrombocytopenia, as well as the usual nausea, vomiting, hair loss, as well as weakness. After the first 4 weeks of chemotherapy the patient expressed interest in discontinuing the chemo. We obtained an abdominal CT, which did not show progression or regression of disease, particularly since the CT scan was never able to identify any large tumor sites. Instead the cancer was widespr ead throughout the mesentery and abdomen, according to the surgical report. She continued to have f rom nausea and vomiting whenever we tried to clamp the NG tube for a few hours and she still require d TPN for hydration, as well as nutrition. Since the patient does not want to continue with chemoth erapy anymore, she will be transferred to the hospice team for inpatient hospice care. We suspect t hat the patient cannot tolerate anything orally, and if IV fluid or TPN is to be discontinued, she w ill have only a few weeks until end of life, or less. DISPOSITION: The patient is discharged to inpatient hospice. Dictated By: KOBY FRANCO MD DP/OH Conf#: [id number] DID#: [id number]
--- NOTE | 2016-12-05 12:20 | PN ---
Date/Time of Note Date/Time of Note DATE: 12/05/16 TIME: 12:19 Assessment/Plan VTE Prophylaxis VTE Prophylaxis Intervention: other Lines/Catheters IV [facility]ter Type (from [facility]): Portacath Urinary Cath still in place: No Assessment/Plan Chief Complaint/Hosp Course 1. Metastatic gastric cancer - on inpatient hospice 2. Sepsis with bacteremia. Clinically stable on IV ceftriaxone and fluconazole. Last chest x-ray also shows improvement in bibasilar infiltrates. 3. Blood pressure is stable on the current medications. Problems: Subjective 24 Hr Interval Summary Free Text/Dictation Patient states that her pain is under control Exam/Review of Systems Vital Signs Vitals Vital Signs Date Time Temp Pulse Resp B/P Pulse Ox O2 Delivery O2 Flow Rate FiO2 12/05/16 07:50 98.2 108 20 164/74 94 Intake and Output 12/04/16 12/04/16 12/05/16 15:00 23:00 07:00 Intake Total 650 ml 600 ml 400 ml Output Total 1640 ml 620 ml Balance 650 ml -1040 ml -220 ml Exam Constitutional: well developed Head: normocephalic Neck: supple Respiratory: diminished breath sounds Cardiovascular: regular rate and rhythm Gastrointestinal: non-tender, soft Extremities: normal pulses Results Result Diagram: 12/02/16 0924 12/04/16 0437 Results 24 hrs Laboratory Tests Test 12/04/16 12:42 Bedside Glucose 134 Medications Medications Current Medications Ondansetron HCl (Zofran Inj) 4 mg Q4H PRN IV NAUSEA AND/OR VOMITING Last administered on 11/25/16 22:15; Admin Dose 4 MG; Start 10/17/16 at 19:00 Lidocaine 15 ml 15 ml QID PRN PO SORE THROAT Last administered on 11/10/16 12: 53; Admin Dose 15 ML; Start 11/08/16 at 14:00 Acetaminophen (Ofirmev 1000mg/ 100ml Iv) 100 ml @ 400 mls/hr Q6H PRN IVPB FEVER Last administered on 11/22/16 06:55; Admin Dose 400 MLS/HR; Start at 16:00 Diphenhydramine HCl (Benadryl) 50 mg Q7D IV Last administered on 11/25/16 22: 15; Admin Dose 50 MG; Start 11/25/16 at 20:00 Famotidine 20 mg 20 mg Q7D IV Last administered on 11/25/16 22:15; Admin Dose 20 MG; Start 11/25/16 at 20:00 Dexamethasone/ Dextrose (Decadron/D5W) 55 ml @ 252 mls/hr Q7D IV Last administered on 11/25/16 22:15; Admin Dose 252 MLS/HR; Start 11/25/16 at 20:00 Lorazepam 1 mg 1 mg Q2 PRN IV anxiety, insomnia; Start 12/04/16 at 15:00 Morphine Sulfate/ Sodium Chloride (morphine) 100 ml @ 1 mls/hr TITRATE IV Last administered on 12/04/16 16:42; Admin Dose 1 MLS/HR; Start 12/04/16 at 15:00 Atropine Sulfate (Atropine Sulfate) 2 drop Q2H PRN SL secretions; Start at 15:00 ULISES MCCAULEY Dec 05, 2016 12:20
[2016-12-05 19:00] VITALS: BP 123/62; RESP 16
[2016-12-05] MEDS: FAMOTIDINE 20 MG INJ IV SCH (20:19)
[2016-12-06] MEDS: morphine (DRIP) 100 MG/100 ML 100 ML IV SCH (10:01)
--- NOTE | 2016-12-06 11:18 | PN ---
Date/Time of Note Date/Time of Note DATE: 12/06/16 TIME: Assessment/Plan VTE Prophylaxis VTE Prophylaxis Intervention: other Lines/Catheters IV [facility]ter Type (from [facility]): PAC Urinary Cath still in place: No Assessment/Plan Chief Complaint/Hosp Course 1. Metastatic gastric cancer - on inpatient hospice 2. Sepsis with bacteremia. Clinically stable on IV ceftriaxone and fluconazole. Last chest x-ray also shows improvement in bibasilar infiltrates. 3. Blood pressure is stable on the current medications. Problems: Subjective 24 Hr Interval Summary Free Text/Dictation Patient has no complaints Exam/Review of Systems Vital Signs Vitals Vital Signs Date Time Temp Pulse Resp B/P Pulse Ox O2 Delivery O2 Flow Rate FiO2 12/05/16 19:00 98.9 112 16 123/62 94 Intake and Output 12/05/16 12/05/16 12/06/16 15:00 23:00 07:00 Intake Total 392 ml 273 ml Output Total 325 ml Balance 392 ml -52 ml Exam Constitutional: well developed Head: atraumatic, normocephalic Neck: supple Respiratory: diminished breath sounds Cardiovascular: regular rate and rhythm Gastrointestinal: non-tender, soft Extremities: normal pulses Results Result Diagram: 12/02/16 0924 12/04/16 0437 Medications Medications Current Medications Ondansetron HCl (Zofran Inj) 4 mg Q4H PRN IV NAUSEA AND/OR VOMITING Last administered on 11/25/16 22:15; Admin Dose 4 MG; Start 10/17/16 at 19:00 Lidocaine 15 ml 15 ml QID PRN PO SORE THROAT Last administered on 11/10/16 12: 53; Admin Dose 15 ML; Start 11/08/16 at 14:00 Acetaminophen (Ofirmev 1000mg/ 100ml Iv) 100 ml @ 400 mls/hr Q6H PRN IVPB FEVER Last administered on 11/22/16 06:55; Admin Dose 400 MLS/HR; Start at 16:00 Diphenhydramine HCl (Benadryl) 50 mg Q7D IV Last administered on 11/25/16 22: 15; Admin Dose 50 MG; Start 11/25/16 at 20:00 Famotidine 20 mg 20 mg Q7D IV Last administered on 12/05/16 20:19; Admin Dose 20 MG; Start 11/25/16 at 20:00 Dexamethasone/ Dextrose (Decadron/D5W) 55 ml @ 252 mls/hr Q7D IV Last administered on 11/25/16 22:15; Admin Dose 252 MLS/HR; Start 11/25/16 at 20:00 Lorazepam 1 mg 1 mg Q2 PRN IV anxiety, insomnia; Start 12/04/16 at 15:00 Morphine Sulfate/ Sodium Chloride (morphine) 100 ml @ 1 mls/hr TITRATE IV Last administered on 12/06/16 10:01; Admin Dose 4 MLS/HR; Start 12/04/16 at 15:00 Atropine Sulfate (Atropine Sulfate) 2 drop Q2H PRN SL secretions; Start at 15:00 ULISES MCCAULEY Dec 06, 2016 11:18
[2016-12-06] MEDS: ACETAMINOPHEN 1000MG/100ML IV 100 ML IVPB PRN (21:14)
[2016-12-07] MEDS: morphine (DRIP) 100 MG/100 ML 100 ML IV SCH ×2 (05:46→21:13)
--- NOTE | 2016-12-07 17:19 | HP ---
DATE OF ADMISSION: 10/16/2016 LEVEL OF CARE: [facility]. PRIMARY HOSPITAL DIAGNOSIS: Metastatic gastric cancer. CHIEF COMPLAINT AND HISTORY OF PRESENT ILLNESS: History is obtained from medical record as well as from patient and her family. The patient is a 66-year-old female with history of stage IV metastati c gastric cancer, status post partial gastrectomy and partial colectomy and palliative ileostomy. T he patient came to ER with fever, nausea, vomiting on 10/16/2016. Patient was diagnosed with abdomi nal carcinoma and secondary to metastatic gastric cancer and bowel obstruction. The patient did hav e a repeat CT scan on 11/26/2016 which revealed multiloculated fluid collection with significantly d ilated Lydia-en-Y loop of duodenum, diffuse anasarca. The patient was to receive chemotherapy on 12/2016, however, the patient did not want to undergo chemo and wished to be on hospice. The patistephan dye was seen by hospice nurse, ____. 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 The patient denied any chest pain. Patient do es report generalized weakness but denies any headache or dizziness. No reported leg edema. Patien marnie does have abdominal distention. The patient remains awake, alert and responsive. The patient als o appears to have lost significant weight. She looks cachectic now. ALLERGIES: NONE. PAST MEDICAL HISTORY: Also significant for hypertension. SOCIAL HISTORY: No smoking, no alcohol. FAMILY HISTORY: Noncontributory. PHYSICAL EXAMINATION: GENERAL: Thin, weak appearing Filipina female who appears to be in pain due to metastatic gastric c ancer. VITAL SIGNS: Temperature 98, pulse 85, respirations 20, blood pressure this morning was 155/79, O2 sat 97%. HEENT: No eye discharge or redness. Extraocular movements intact. Oropharynx revealed dry oral mu cosa. NECK: Supple, no mass. CHEST: Diminished air entry at bases. CARDIOVASCULAR: S1, S2 normal. No murmur. ABDOMEN: Soft, distended, tender. EXTREMITIES: No edema, clubbing or cyanosis. NEUROLOGIC: The patient is awake and alert. Patient has generalized weakness, but appears fairly oriented. LABORATORY DATA: WBC 9.7, hemoglobin 9.8, platelets 73. Chemistry: Sodium 141, potassium 3.8, BUN 15, creatinine 0.3, albumin 2.6. IMPRESSION: 1. Metastatic gastric cancer status post surgery and chemotherapy. 2. Hypertension. 3. 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 PLAN: Patient will be kept n.p.o. Will continue NG to low suction and will start patient on IV mor phine drip due to pain. Will continue IV Zofran for nausea, vomiting, and IV Ativan for anxiety. W ill continue IV Pepcid for GI prophylaxis. Patient will be continued on IV Decadron. The patient o nly is requesting comfort care. Will discontinue antibiotic and TPN. Continue Catapres patch due t o hypertension. Plan of care discussed with patient's family, the staff nurse and nursing staff at [facility]. Will continue to optimize comfort care. Dictated By: CALLI SY/[place] Conf#: [id number] DID#: [id number]
--- NOTE | 2016-12-07 19:26 | PN ---
DATE: 12/07/2016 LEVEL OF CARE: [facility]. PRIMARY HOSPITAL DIAGNOSIS: Metastatic gastric cancer. SUBJECTIVE INTERVAL HISTORY: The patient continues to decline and has progressively become unrespon sive. The patient's respirations are irregular and patient has also become increasingly more tachyc ardic. No reported fever or vomiting. NG tube in place for decompressing colon due to recent bowel obstruction. PHYSICAL EXAMINATION: GENERAL: The patient to be unresponsive. VITAL SIGNS: Temperature 98.9, pulse 112, respirations 16, blood pressure 123/64, O2 saturation 94% . NECK: No mass. CHEST: Coarse breath sounds anteriorly. CARDIOVASCULAR: Sinus tachycardia. ABDOMEN: Less distended. EXTREMITIES: Edema present. NEUROLOGIC: The patient is nonverbal. ASSESSMENT AND PLAN: Metastatic gastric cancer. The patient's morphine dose has been increased to 4 mg an hour. The patient also continues to get breathing treatment for chest congestion and atropi ne drops for secretions. The patient remains terminally ill. The patient's family is aware of poor prognosis. Dictated By: CALLI CHRISTIE MD AB/[place] Conf#: [id number] DID#: [id number] CC: KOBY FRANCO MD;*EndCC*
[2016-12-07 20:00] VITALS: RESP 18
--- NOTE | 2016-12-08 14:42 | DES ---
DATE OF ADMISSION: 10/16/2016 DATE OF : 12/08/2016 CAUSE OF : Metastatic gastric cancer. REASON FOR ADMISSION AND HOSPITAL COURSE: The patient was a 66-year-old female with history of stag e IV metastatic gastric cancer, status post partial gastrectomy and partial colectomy and palliative ileostomy. The patient recently was admitted with fever, nausea, vomiting and was diagnosed with a bdominal carcinomatosis secondary to metastatic gastric cancer. The patient also developed bowel ob struction. An NG tube was inserted. The patient was getting chemotherapy and subsequently the jonathan ent's family requested to go on hospice care. The patient was admitted under hospice on 12/04/2016 and was admitted under [facility] level of care. The patient was continued on NG to low suction, IV morphi ne drip, IV Zofran, IV Ativan and was also given IV Decadron. The patient continued to decline and on 12/08/2016 at 12:40 a.m., patient was noted to be unresponsi ve with no pulse or blood pressure and the patient was pronounced . Family was notified. Dictated By: CALLI SY/[place] Conf#: [id number] DID#: [id number]
== END 2016-12-08 01:00 | disposition expired | DRG 374 ==
LOC: E/R 02:40 → MS2 08:57 → MS1 10-24 03:50
PROVIDERS: ADMIT Internal Medicine; ATTEND Internal Medicine
PROC: 3E05305 Introduction of Other Antineoplastic into Peripheral Artery, Percutaneous Approach (ICD-10-PCS; 2016-10-28)
PROC: 30253N1 (ICD-10-PCS; principal; 2016-11-01)
DX: C78.6 Secondary malignant neoplasm of retroperitoneum and peritoneum (principal); A40.8 Other streptococcal sepsis; K65.1 Peritoneal abscess; K56.69 Other intestinal obstruction; J18.9 Pneumonia, unspecified organism; D61.810 Antineoplastic chemotherapy induced pancytopenia; C16.9 Malignant neoplasm of stomach, unspecified; K83.1 Obstruction of bile duct; E46 Unspecified protein-calorie malnutrition; C77.9 Secondary and unspecified malignant neoplasm of lymph node, unspecified; J98.11 Atelectasis; R71.0 Precipitous drop in hematocrit; Z68.1 Body mass index [BMI] 19.9 or less, adult; T80.211A Bloodstream infection due to central venous catheter, initial encounter; D70.9 Neutropenia, unspecified; D69.6 Thrombocytopenia, unspecified; E83.42 Hypomagnesemia; I10 Essential (primary) hypertension; D64.9 Anemia, unspecified; Z93.2 Ileostomy status; Z51.5 Encounter for palliative care; N28.9 Disorder of kidney and ureter, unspecified; R00.0 Tachycardia, unspecified; G47.00 Insomnia, unspecified; R01.1 Cardiac murmur, unspecified; F41.9 Anxiety disorder, unspecified; D63.0 Anemia in neoplastic disease; T45.1X5A Adverse effect of antineoplastic and immunosuppressive drugs, initial encounter; Y92.239 Unspecified place in hospital as the place of occurrence of the external cause; R50.81 Fever presenting with conditions classified elsewhere; R13.10 Dysphagia, unspecified; J02.9 Acute pharyngitis, unspecified; Z87.891 Personal history of nicotine dependence; Z80.0 Family history of malignant neoplasm of digestive organs; Z80.3 Family history of malignant neoplasm of breast; Z80.8 Family history of malignant neoplasm of other organs or systems; D72.828 Other elevated white blood cell count; R10.13 Epigastric pain; Z66 Do not resuscitate
CPT/HCPCS: 36430; 71010; 71020; 71250; 71260; 74000; 74176; 74177; 76705; 80048; 80053; 80076; 80202; 81001; 81003; 82040; 82378; 82565; 82962; 83605; 83690; 83735; 84100; 84134; 84478; 84484; 84520; 85025; 85610; 85651; 85730; 86644; 86850; 86900; 86901; 86920; 86945; 87040; 87045; 87081; 87086; 93005; 93306; 96374; 96375; 96376; J9267; C9113; J0131; J0610; J0696; J1100; J1170; J1200; J1450; J1815; J1956; J2060; J2185; J2270; J2405; J2543; J2765; J3370; J3475; J3480; J7030; J7042; J7050; J9308; P9016; P9047; Q9967